=== PATIENT | male | born 1950 | race Caucasian/White ===

== ENCOUNTER → 2016-10-06 | Day surgery (SDC) | payer OTHER ==
[2016-10-03 15:44] VITALS: BMI 28.7
[~2016-10-06] MED LIST: LACTATED RINGERS 1,000 ML IV SCH; LIDOCAINE 1% 20 ML VIAL (10MG/ML) FOR IV START INTRADERMA PRN; LIDOCAINE 1% INJ 10MG/ML (20 ML MDV) ONE; PROPOFOL 10 MG/ML 20 ML VIAL IV ONE; ePHEDrine 50 MG/ML 1 ML AMP ONE
[2016-10-06 08:09] VITALS: RESP 18; TEMP 97.3
[2016-10-06 08:15] LABS: Glucose,Whole Blood 176 mg/dL (75-99)
--- NOTE | 2016-10-06 09:21 | P.PCN ---
Date of Procedure: 10/06/16 Procedure(s) Performed: Procedure: Colonoscopy and polypectomy. Preoperative diagnosis: Change in bowel habits. Postoperative diagnosis: Multiple small polyps snared but no large polyps or cancer treated Preparation: HalfLytely prep. Sedation: Was provided by anesthesia. Brief clinical history: The patient is a 65-year-old male who is referred for this evaluation for change in bowel habits that started around May of last year. He reports intermittent episodes of loose stools but no diarrhea or bleeding. No family history of colon cancer. This would be his first colonoscopy. Procedure: With the patient on his left lateral decubitus position and after informed consent and adequate sedation, the perianal area was inspected and it did not show any fissures or fistulas. There were no masses felt on digital rectal examination. The Olympus CFQ 160L video colonoscope was then inserted in the rectum in the usual fashion and advanced to the cecum. The mucosa appeared healthy. There were multiple small and diminutive polyps. I snared 2 in the transverse colon and one in the sigmoid but there were no large polyps or cancer. I retroflexed endoscope in the rectum before the endoscope was withdrawn. The patient tolerated the procedure well. Plan: The patient was reassured. Will await pathology results. I anticipate repeating this exam in 3-5 years.
[2016-10-06 09:41] VITALS: BP 117/59; PULSE 53
[2016-10-06 10:58] LABS: Glucose,Whole Blood 67 mg/dL (75-99)
[2016-10-06 10:58] LABS: Glucose,Whole Blood 115 mg/dL (75-99)
[2016-10-06 10:58] LABS: Glucose,Whole Blood 69 mg/dL (75-99)
[2016-10-06 10:58] LABS: Glucose,Whole Blood 64 mg/dL (75-99)
== END ==
LOC: ORWHC2ENDO 07:41
DX: D12.5 Benign neoplasm of sigmoid colon (principal); D12.3 Benign neoplasm of transverse colon; I25.10 Atherosclerotic heart disease of native coronary artery without angina pectoris; E78.5 Hyperlipidemia, unspecified; J44.9 Chronic obstructive pulmonary disease, unspecified; E11.9 Type 2 diabetes mellitus without complications; Z79.84 Long term (current) use of oral hypoglycemic drugs; Z86.73 Personal history of transient ischemic attack (TIA), and cerebral infarction without residual deficits; Z79.82 Long term (current) use of aspirin; Z79.891 Long term (current) use of opiate analgesic; Z79.899 Other long term (current) drug therapy; Z88.5 Allergy status to narcotic agent
CPT/HCPCS: 88305; 45385; J2001; J2704; 99153

== ENCOUNTER 2017-02-04 11:46 | Emergency (ER) | payer OTHER ==
[2017-02-04 11:52] VITALS: RESP 18
[2017-02-04] MEDS ORDERED: SODIUM CHLORIDE 0.9% 1,000 ML IV STA (12:17)
[2017-02-04] MEDS ORDERED: SODIUM CHLORIDE 0.9% 500 ML IV STA (12:18)
[2017-02-04 12:22] LABS: Glucose,Whole Blood 104 mg/dL (75-99)
--- NOTE | 2017-02-04 12:22 | ED ---
Neuro HPI - General Chief Complaint: Neuro Symptoms/Deficit Stated Complaint: POSS CVA Time Seen by Provider: 02/04/17 12:00 Source: patient, family, RN notes reviewed Mode of arrival: wheelchair Limitations: no limitations - History of Present Illness Is the patient presenting with stroke symptoms?: No Initial Comments: This is a 66-year-old male with a history of low back problems who states he had the onset is facial numbness this morning he also states last several days he's had pain in his legs when he tries to walk and stand. He denies any facial weakness any headache blurry vision weakness to his upper extremities. No focal weakness was lower extremities. No fevers chills sweats no trauma. - Related Data Home Medications: Home Medications Medication Instructions Recorded Confirmed Losartan [Cozaar] 50 mg PO DAILY 05/25/14 02/04/17 Metoprolol Tartrate [Lopressor] 100 mg PO DAILY 05/25/14 02/04/17 glipiZIDE [Glucotrol] 5 mg PO TID 05/25/14 02/04/17 metFORMIN HCL [Glucophage] 500 mg PO BID 05/25/14 02/04/17 sitaGLIPtin [Januvia] 50 mg PO DAILY 05/25/14 02/04/17 Atorvastatin [Lipitor] 80 mg PO DAILY 12/29/14 02/04/17 Escitalopram [Lexapro] 10 mg PO DAILY 12/29/14 02/04/17 Cyclobenzaprine [Flexeril] 10 mg PO TID PRN 02/10/15 02/04/17 Loratadine [Claritin] 10 mg PO DAILY 02/10/15 02/04/17 rOPINIRole HCL [Requip] 0.5 mg PO HS 02/10/15 02/04/17 Nitroglycerin Sl Tabs [Nitrostat] 0.4 mg SUBLINGUAL Q5M PRN 04/04/16 02/04/17 ALPRAZolam [Xanax] 0.5 mg PO DAILY PRN 02/04/17 02/04/17 Allopurinol [Zyloprim] 100 mg PO DAILY 02/04/17 02/04/17 Furosemide [Lasix] 40 mg PO DAILY 02/04/17 02/04/17 oxyCODONE-APAP 10-325MG [Percocet 1 tab PO Q6HR PRN 02/04/17 02/04/17 10-325 mg] Previous Rx's Medication Instructions Recorded Aspirin EC [Ecotrin] 325 mg PO DAILY tablet. 01/02/15 Allergies/Adverse Reactions: Allergies Allergy/AdvReac Type Severity Reaction Status Date / Time codeine Allergy Unknown Verified 02/04/17 12:42 Childhood morphine Allergy Unknown Verified 02/04/17 12:42 Childhood Review of Systems ROS Statement: Those systems with pertinent positive or pertinent negative responses have been documented in the HPI. ROS Other: All systems not noted in ROS Statement are negative. General Exam - General Exam Comments Initial Comments: This is a well-developed well-nourished awake alert anxious appearing male he does demonstrate some trembling. Limitations: no limitations General appearance: alert, anxious Head exam: Present: atraumatic, normocephalic, normal inspection Eye exam: Present: normal appearance, PERRL, EOMI. Absent: scleral icterus, conjunctival injection, periorbital swelling ENT exam: Present: mucous membranes dry Neck exam: Present: normal inspection. Absent: tenderness, meningismus, lymphadenopathy Respiratory exam: Present: normal lung sounds bilaterally, other (He is noted be hyperventilating). Absent: respiratory distress, wheezes, rales, rhonchi, stridor Cardiovascular Exam: Present: regular rate, normal rhythm, normal heart sounds. Absent: systolic murmur, diastolic murmur, rubs, gallop, clicks GI/Abdominal exam: Present: soft, normal bowel sounds. Absent: distended, tenderness, guarding, rebound, rigid Extremities exam: Present: normal inspection, full ROM, normal capillary refill , other (No overt Tenderness no palpable cords). Absent: tenderness, pedal edema, joint swelling, calf tenderness Back exam: Present: normal inspection Neurological exam: Present: alert, oriented X3, CN II-XII intact Psychiatric exam: Present: normal affect, normal mood Skin exam: Present: warm, dry, intact, normal color. Absent: rash Stroke MDM - Lab Data Result diagrams: 02/04/17 12:10 02/04/17 12:10 Lab Results 02/04/17 02/04/17 02/04/17 Range/Units 12:02 12:10 12:10 WBC 8.0 (3.8-10.6) k/uL RBC 4.63 (4.30-5.90) m/uL Hgb 13.5 (13.0-17.5) gm/dL Hct 41.1 (39.0-53.0) % MCV 88.8 (80.0-100.0) fL MCH 29.1 (25.0-35.0) pg MCHC 32.8 (31.0-37.0) g/dL RDW 15.0 (11.5-15.5) % Plt Count 124 L (150-450) k/uL Neutrophils % 67 % Lymphocytes % 19 % Monocytes % 8 % Eosinophils % 3 % Basophils % 1 % Neutrophils # 5.3 (1.3-7.7) k/uL Lymphocytes # 1.5 (1.0-4.8) k/uL Monocytes # 0.7 (0-1.0) k/uL Eosinophils # 0.3 (0-0.7) k/uL Basophils # 0.1 (0-0.2) k/uL PT (9.0-12.0) sec INR (<1.1) APTT (22.0-30.0) sec D-Dimer (<0.60) mg/L FEU Sodium (137-145) mmol/L Potassium (3.5-5.1) mmol/L Chloride (98-107) mmol/L Carbon Dioxide (22-30) mmol/L Anion Gap mmol/L BUN (9-20) mg/dL Creatinine (0.66-1.25) mg/dL Est GFR (MDRD) Af Amer (>60 ml/min/1.73 sqM) Est GFR (MDRD) Non-Af (>60 ml/min/1.73 sqM) Glucose (74-99) mg/dL POC Glucose (mg/dL) 104 H (75-99) mg/dL POC Glu Medical Reception Specialist ID JeffIsabel Calcium (8.4-10.2) mg/dL Magnesium (1.6-2.3) mg/dL Total Bilirubin (0.2-1.3) mg/dL AST (17-59) U/L ALT (21-72) U/L Alkaline Phosphatase (38-126) U/L Total Creatine Kinase 33 L (55-170) U/L CK-MB (CK-2) 1.5 (0.0-2.4) ng/mL CK-MB (CK-2) Rel Index 4.5 Troponin I 0.012 (0.000-0.034) ng/mL Total Protein (6.3-8.2) g/dL Albumin (3.5-5.0) g/dL TSH (0.465-4.680) mIU/L 02/04/17 02/04/17 Range/Units 12:10 12:10 WBC (3.8-10.6) k/uL RBC (4.30-5.90) m/uL Hgb (13.0-17.5) gm/dL Hct (39.0-53.0) % MCV (80.0-100.0) fL MCH (25.0-35.0) pg MCHC (31.0-37.0) g/dL RDW (11.5-15.5) % Plt Count (150-450) k/uL Neutrophils % % Lymphocytes % % Monocytes % % Eosinophils % % Basophils % % Neutrophils # (1.3-7.7) k/uL Lymphocytes # (1.0-4.8) k/uL Monocytes # (0-1.0) k/uL Eosinophils # (0-0.7) k/uL Basophils # (0-0.2) k/uL PT 10.7 (9.0-12.0) sec INR 1.1 (<1.1) APTT 22.6 (22.0-30.0) sec D-Dimer 0.76 H (<0.60) mg/L FEU Sodium 136 L (137-145) mmol/L Potassium 4.4 (3.5-5.1) mmol/L Chloride 101 (98-107) mmol/L Carbon Dioxide 24 (22-30) mmol/L Anion Gap 11 mmol/L BUN 30 H (9-20) mg/dL Creatinine 1.10 (0.66-1.25) mg/dL Est GFR (MDRD) Af Amer >60 (>60 ml/min/1.73 sqM) Est GFR (MDRD) Non-Af >60 (>60 ml/min/1.73 sqM) Glucose 101 H (74-99) mg/dL POC Glucose (mg/dL) (75-99) mg/dL POC Glu Medical Reception Specialist ID Calcium 9.2 (8.4-10.2) mg/dL Magnesium 2.1 (1.6-2.3) mg/dL Total Bilirubin 0.7 (0.2-1.3) mg/dL AST 32 (17-59) U/L ALT 44 (21-72) U/L Alkaline Phosphatase 83 (38-126) U/L Total Creatine Kinase (55-170) U/L CK-MB (CK-2) (0.0-2.4) ng/mL CK-MB (CK-2) Rel Index Troponin I (0.000-0.034) ng/mL Total Protein 7.1 (6.3-8.2) g/dL Albumin 4.4 (3.5-5.0) g/dL TSH 3.080 (0.465-4.680) mIU/L - NIH Stroke Scale 1a. Level of Consciousness: (0) alert 1b. LOC Questions: (0) answers correctly 1c. LOC Commands: (0) performs tasks correctly 2. Best Gaze: (0) normal 3. Visual: (0) no visual loss 4. Facial Palsy: (0) normal symmetrical movement 5a. Motor Arm Left: (0) no drift 5b. Motor Arm Right: (0) no drift 6a. Motor Leg Left: (0) no drift 6b. Motor Leg Right: (0) no drift 7. Limb Ataxia: (0) absent 8. Sensory: (0) normal 9. Best Language: (0) no aphasia 10. Dysarthria: (0) normal 11. Extinction/Inattention: (0) no abnormality - Medical Decision Making Patient did feel improved. He received IV hydration. The initial presentation is consistent with hyperventilation dehydration and chronic low back pain. He is to be discharged to follow-up with his doctor return when necessary we did discuss the patient's ultrasound results and the mildly elevated d-dimer. Further workup at this time is not indicated. - EKG Data -: EKG Interpreted by Me EKG shows normal: sinus rhythm (Sinus rhythm a rate of 64 QRS 114 QT/QTC of 14/ [address]-T wave configuration artifact is present st-t wave changes) Past Medical History Past Medical History: CVA/TIA, Diabetes Mellitus, GERD/Reflux, Hyperlipidemia, Myocardial Infarction ([place]) Additional Past Medical History / Comment(s): CV A 1997 with no residual deficits 2 episode, carotid stenosis followed by Dr. Wyatt every 6 months, CABG 1995 tenosynovitis bilateral wrists and both hand's fingers and in his back, alot of back pain, TIA Last Myocardial Infarction Date:: 2001 History of Any Multi-Drug Resistant Organisms: None Reported Past Surgical History: Coronary Bypass/CABG, Heart Catheterization With Stent, Hernia Repair Additional Past Surgical History / Comment(s): March 1998 Cabg triple vessel by Dr. Ge. [facility] with 3 stents. 4th stent 2016 at [place] Past Anesthesia/Blood Transfusion Reactions: No Reported Reaction Date of Last Stent Placement:: March 1998 Past Psychological History: No Psychological Hx Reported Additional Psychological History / Comment(s): Pt lives with his in their home. He is normally independent. He drives a car. He uses a cane on occasion. They have no home care agencies. Smoking Status: Former smoker Past Alcohol Use History: None Reported Past Drug Use History: None Reported - Past Family History Father Family Medical History: Cancer Additional Family Medical History / Comment(s): Leukemia Father of leukemia at age 32yrs Mother Family Medical History: COPD Additional Family Medical History / Comment(s): Mother was 76 when she . She had mental illness. Sister(s) Family Medical History: Coronary Artery Disease (CAD), CVA/TIA Brother(s) Family Medical History: Coronary Artery Disease (CAD) Course Vital Signs 02/04/17 02/04/17 02/04/17 11:48 11:59 12:14 Temperature 98.3 F Pulse Rate 67 Pulse Rate [ 66 66 Damage Appraiser ] Respiratory 18 18 18 Rate Blood Pressure 178/81 Blood Pressure 190/91 186/79 [Right Arm] O2 Sat by Pulse 100 Oximetry 02/04/17 02/04/17 02/04/17 12:36 14:11 15:08 Temperature 98.1 F Pulse Rate 63 68 64 Pulse Rate [ Damage Appraiser ] Respiratory 18 18 18 Rate Blood Pressure 181/72 128/62 122/57 Blood Pressure [Right Arm] O2 Sat by Pulse 100 96 96 Oximetry Disposition Clinical Impression: Hyperventilation syndrome, Dehydration, Chronic back pain Disposition: HOME SELF-CARE Condition: Good Instructions: Hyperventilation (ED), Dehydration (ED), Chronic Back Pain (ED)
[2017-02-04 12:28] LABS: Basophils # (A) 0.1 k/uL (0-0.2); Basophils % (A) 1 %; CH 29.4; CHCM 33.3; Eosinophils # (A) 0.3 k/uL (0-0.7); Eosinophils % (A) 3 %; HCT 41.1 % (39.0-53.0); HDW 2.83; HGB 13.5 gm/dL (13.0-17.5); Luc # (Auto) 0.13; Luc % (Auto) 2; Lymphocytes # (A) 1.5 k/uL (1.0-4.8); Lymphocytes % (A) 19 %; MCH 29.1 pg (25.0-35.0); MCHC 32.8 g/dL (31.0-37.0); MCV 88.8 fL (80.0-100.0); Monocytes # (A) 0.7 k/uL (0-1.0); Monocytes % (A) 8 %; Neutrophils # (A) 5.3 k/uL (1.3-7.7); Neutrophils % (A) 67 %; RBC 4.63 m/uL (4.30-5.90)
[2017-02-04 12:40] LABS: ALT 44 U/L (21-72); AST 32 U/L (17-59); Alkaline Phosphatase 83 U/L (38-126); Anion Gap 11 mmol/L; Blood Urea Nitrogen 30 mg/dL (9-20); Calcium 9.2 mg/dL (8.4-10.2); Carbon Dioxide 24 mmol/L (22-30); Chloride 101 mmol/L (98-107); Glucose 101 mg/dL (74-99); Magnesium 2.1 mg/dL (1.6-2.3); Non-African American GFR(MDRD) >60 (>60 ml/min/1.73 sqM); Potassium 4.4 mmol/L (3.5-5.1); Sodium 136 mmol/L (137-145); Total Bilirubin 0.7 mg/dL (0.2-1.3); Total Protein 7.1 g/dL (6.3-8.2)
[2017-02-04 12:57] LABS: INR 1.1 (<1.1); Partial Thromboplastin Time 22.6 sec (22.0-30.0); Prothrombin Time 10.7 sec (9.0-12.0)
[2017-02-04 13:03] LABS: Creatine Kinase MB 1.5 ng/mL (0.0-2.4); Troponin I 0.012 ng/mL (0.000-0.034)
--- NOTE | 2017-02-04 13:11 | CT ---
EXAMINATION TYPE: CT brain wo con DATE OF EXAM: 02/04/2017 12:54 PM COMPARISON: 04/04/2016 HISTORY: possible cva, Weak in legs CT DLP: 1050.8 mGycm Automated exposure control for dose reduction was used. FINDINGS: There is mild cerebral cortical atrophy. There is a 5 mm hypodensity in the right caudate nucleus. Th ere is no mass effect nor midline shift. There is no sign of intracranial hemorrhage. The calvarium i s intact. IMPRESSION: Old lacunar infarct right caudate nucleus. Cerebral atrophy. No change compared to old exam. No acute abnormality.
--- NOTE | 2017-02-04 13:24 | XR ---
EXAMINATION TYPE: XR chest 2V DATE OF EXAM: 02/04/2017 1:16 PM COMPARISON: 02/10/2015 HISTORY: Altered mental status. Chest pain. TECHNIQUE: Frontal and lateral views of the chest are obtained. FINDINGS: There is no heart failure nor confluent pneumonic infiltrate. There are no hilar masses. C ostophrenic angles are clear. There are chest leads. There are sternal wires. IMPRESSION: No active cardiac pulmonary disease. Borderline cardiomegaly. No change compared to last exam.
--- NOTE | 2017-02-04 13:26 | XR ---
EXAMINATION TYPE: XR lumbosacral spine min 4V DATE OF EXAM: 02/04/2017 1:16 PM COMPARISON: 02/10/2015 HISTORY: Back pain TECHNIQUE: 5 views FINDINGS: Fairly normal spacing and alignment. There is mild spurring of the endplates. Abdominal aorta is athe romatous. There is almost 50% anterior wedging of L1 vertebra. Sacroiliac joints are intact. IMPRESSION: Old L1 compression fracture shows progression compared to old exam. I see no definite acu te fracture. Mild spondylotic changes.
[2017-02-04 14:13] VITALS: TEMP 98.1
--- NOTE | 2017-02-04 15:07 | US ---
EXAMINATION TYPE: US venous doppler duplex LE DATE OF EXAM: 02/04/2017 12:25 PM COMPARISON: NONE CLINICAL HISTORY: Pain. Bilateral leg pain SIDE PERFORMED: Bilateral TECHNIQUE: The lower extremity deep venous system is examined utilizing real time linear array sonog shefali with graded compression, doppler sonography and color-flow sonography. VESSELS IMAGED: External Iliac Vein (EIV) Common Femoral Vein Deep Femoral Vein Greater Saphenous Vein * Femoral Vein Popliteal Vein Small Saphenous Vein * Proximal Calf Veins (* superficial vessels) Right Leg: Negative for DVT Left Leg: Negative for DVT IMPRESSION: Grayscale, color doppler, spectral doppler imaging performed of the deep veins of the lo wer extremities. There is normal flow, compressibility, vascular waveforms bilaterally. Normal exam . No evidence of deep venous thrombosis in both legs.
[2017-02-04 16:35] VITALS: BP 116/56; PULSE 66
== END 2017-02-04 16:46 | disposition home or self-care (01) ==
LOC: EC 11:46
DX: F45.8 Other somatoform disorders (principal); E86.0 Dehydration; M54.5 Low back pain; G89.29 Other chronic pain; E11.9 Type 2 diabetes mellitus without complications; E78.5 Hyperlipidemia, unspecified; Z87.891 Personal history of nicotine dependence; Z88.5 Allergy status to narcotic agent; Z79.84 Long term (current) use of oral hypoglycemic drugs; Z79.899 Other long term (current) drug therapy
CPT/HCPCS: 36415; 70450; 71020; 72110; 80053; 82550; 82553; 83735; 84443; 84484; 85025; 85379; 85610; 85730; 93005; 93970; 96360; 96361; 99284

== ENCOUNTER → 2017-02-14 | Outpatient (CLI) | payer OTHER ==
--- NOTE | 2017-02-16 14:19 | BD ---
EXAMINATION TYPE: MG DEXA axial skeleton. DATE OF EXAM: 02/14/2017 4:10 PM COMPARISON: NONE CLINICAL HISTORY: Height: 73 IN Weight: 247 LBS FRAX RISK QUESTIONS: Alcohol (3 or more units per day): NO Family History (Parent hip fracture): NO Glucocorticoids (More than 3mos): NO (Ex: prednisone, prednisolone, methylprednisolone, dexamethasone, and hydrocortisone). History of Fracture in Adulthood: NO Secondary Osteoporosis: 1. Type 1 Diabetes: NO 2. Hyperthyroidism: NO 3. Menopause before 45: N/A 4. Malnutrition: NO 5. Chronic liver disease: NO Rheumatoid Arthritis: YES Current Tobacco Use: NO RISK FACTORS HISTORY OF: Active: NO Diet low in dairy products/other sources of calcium: YES Lost more than 2 inches in height since high school: YES MEDICATIONS: Additional Medications: CALCIUM, VIT D, DIABETES MEDS, HEART MEDS,CHOLESTEROL MEDS EXAM MEASUREMENTS: Bone mineral densitometry was performed using the [employer] System. Bone mineral density as measured about the Lumbar spine is: ----- L1-L4(G/cm2): 1.497 T Score Values are as follows: ----- L2: 1.4 ----- L3: 3.1 ----- L4: 1.8 ----- L1-L4: 2.6 Bone mineral density BASELINE Bone mineral density about the R hip (g/cm2): 1.160 Bone mineral density about the L hip (g/cm2): 1.222 T Score values are as follows: -----R Neck: 1.9 -----L Neck: 1.3 -----R Total: 2.7 -----L Total: 3.0 Bone mineral density BASELINE IMPRESSION: Normal (Values between +1 and -1 indicate normal bone mass). Consider repeating this study in 5 year s or sooner if there is some new clinical indication. NOTE: T-SCORE=SD OF THE YOUNG ADULT MEAN.
== END | disposition home or self-care (01) ==
LOC: RADBDWWP 16:09
PROVIDERS: ATTEND Family Medicine
DX: M47.817 Spondylosis without myelopathy or radiculopathy, lumbosacral region (principal)
CPT/HCPCS: 77080

== ENCOUNTER → 2017-12-08 | Outpatient (CLI) | payer MEDICARE, OTHER | END | disposition home or self-care (01) | LOC: LABWHC1 10:09 | PROVIDERS: ATTEND Family Medicine | DX: M79.661 Pain in right lower leg (principal) | CPT/HCPCS: 36415; 85379 ==

== ENCOUNTER → 2017-12-13 | Outpatient (CLI) | payer MEDICARE, OTHER ==
--- NOTE | 2017-12-13 09:16 | US ---
EXAMINATION TYPE: US venous doppler duplex LE DATE OF EXAM: 12/13/2017 7:35 AM COMPARISON: NONE CLINICAL HISTORY: Elevated D Dimer R79.1. bilateral calf pain SIDE PERFORMED: Bilateral TECHNIQUE: The lower extremity deep venous system is examined utilizing real time linear array sonog shefali with graded compression, doppler sonography and color-flow sonography. VESSELS IMAGED: External Iliac Vein (EIV) Common Femoral Vein Deep Femoral Vein Greater Saphenous Vein * Femoral Vein Popliteal Vein Small Saphenous Vein * Proximal Calf Veins (* superficial vessels) Grayscale, color doppler, spectral doppler imaging performed of the deep veins of the lower extremiti es. There is normal flow, compressibility, vascular waveforms. Right Leg: Negative for DVT Left Leg: Negative for DVT IMPRESSION: No sonographic evidence of deep venous arthrosis within either lower extremity.
== END | disposition home or self-care (01) ==
LOC: RADUSWWP 06:47
PROVIDERS: ATTEND Family Medicine
DX: M79.661 Pain in right lower leg (principal); M79.662 Pain in left lower leg; R79.1 Abnormal coagulation profile
CPT/HCPCS: 93970

== ENCOUNTER 2018-07-11 07:46 | Day surgery (SDC) | payer MEDICARE, OTHER ==
[2018-07-04 15:17] VITALS: BMI 29.0
[~2018-07-11 07:46] MED LIST changes: -LIDOCAINE 1% INJ 10MG/ML (20 ML MDV) ONE; -PROPOFOL 10 MG/ML 20 ML VIAL IV ONE; -ePHEDrine 50 MG/ML 1 ML AMP ONE
[2018-07-11 08:15] VITALS: TEMP 98.2
[2018-07-11 08:23] LABS: Glucose,Whole Blood 128 mg/dL (75-99)
[2018-07-11] MEDS ORDERED: LIDOCAINE 1% INJ 10MG/ML (20 ML MDV) ONE (08:28)
[2018-07-11] MEDS ORDERED: PROPOFOL 10 MG/ML 20 ML VIAL IV ONE (08:28)
--- NOTE | 2018-07-11 08:34 | P.GSHP ---
History of Present Illness H&P Date: 07/11/18 Chief Complaint: GI bleed This is a 67-year-old male referred from Dr. Randy Saleh. Patient presents today for colonoscopy. He's had issues with rectal bleeding. Past Medical History Past Medical History: COPD, CVA/TIA, Diabetes Mellitus, GERD/Reflux, Hyperlipidemia, Hypertension, Myocardial Infarction ([place]) Additional Past Medical History / Comment(s): COPD, CVA 1997, carotid artery disease, diabetes mellitus, chronic back pain, tenosynovitis involving the wrists and hands bilaterally, chronic back pain, acid reflux, hyperlipidemia, obesity, chronic renal failure, mild aortic stenosis with a peak gradient across the aortic valve of 70 mmHg Last Myocardial Infarction Date:: 2001 History of Any Multi-Drug Resistant Organisms: None Reported Past Surgical History: Coronary Bypass/CABG, Heart Catheterization With Stent, Hernia Repair Additional Past Surgical History / Comment(s): March 1998 Cabg TRIPLE vessel by Dr. Ge. [facility] with 3 stents. 4th stent 2015 at [place], COLONOSCOPY Past Anesthesia/Blood Transfusion Reactions: No Reported Reaction Date of Last Stent Placement:: March 1998, 2015 Smoking Status: Former smoker - Past Family History Father Family Medical History: Cancer Additional Family Medical History / Comment(s): Leukemia Father of leukemia at age 32yrs Mother Family Medical History: COPD Additional Family Medical History / Comment(s): Mother was 76 when she . She had mental illness. Sister(s) Family Medical History: Coronary Artery Disease (CAD), CVA/TIA Brother(s) Family Medical History: Coronary Artery Disease (CAD) Medications and Allergies Home Medications Medication Instructions Recorded Confirmed Type Losartan [Cozaar] 50 mg PO DAILY 05/25/14 07/11/18 History Metoprolol Tartrate [Lopressor] 100 mg PO DAILY 05/25/14 07/11/18 History glipiZIDE [Glucotrol] 5 mg PO TID 05/25/14 07/11/18 History metFORMIN HCL [Glucophage] 500 mg PO BID 05/25/14 07/11/18 History sitaGLIPtin [Januvia] 50 mg PO DAILY 05/25/14 07/11/18 History Atorvastatin [Lipitor] 80 mg PO DAILY 12/29/14 07/11/18 History Escitalopram [Lexapro] 10 mg PO DAILY 12/29/14 07/11/18 History Cyclobenzaprine [Flexeril] 10 mg PO TID PRN 02/10/15 07/04/18 History Loratadine [Claritin] 10 mg PO DAILY 02/10/15 07/11/18 History rOPINIRole HCL [Requip] 0.5 mg PO HS 02/10/15 07/11/18 History Nitroglycerin Sl Tabs [Nitrostat] 0.4 mg SUBLINGUAL Q5M PRN 04/04/16 07/04/18 History ALPRAZolam [Xanax] 0.5 mg PO DAILY PRN 02/04/17 07/11/18 History Allopurinol [Zyloprim] 100 mg PO DAILY 02/04/17 07/11/18 History oxyCODONE-APAP 10-325MG [Percocet 1 tab PO Q6HR PRN 02/04/17 07/11/18 History 10-325 mg] Aspirin [Adult Low Dose Aspirin EC] 81 mg PO DAILY 07/04/18 07/11/18 History Allergies Allergy/AdvReac Type Severity Reaction Status Date / Time codeine Allergy Unknown Verified 07/11/18 08:19 Childhood morphine Allergy Unknown Verified 07/11/18 08:19 Childhood Surgical - Exam Vital Signs Temp Pulse Resp BP Pulse Ox 98.2 F 74 17 161/72 98 07/11/18 08:13 07/11/18 08:13 07/11/18 08:13 07/11/18 08:13 07/11/18 08:13 - General well developed, no distress - Eyes PERRL - ENT normal pinna - Neck no masses - Respiratory normal expansion - Cardiovascular Rhythm: regular - Abdomen Abdomen: soft, non tender Results - Labs Abnormal Lab Results - Last 24 Hours (Table) 07/11/18 Range/Units 08:19 POC Glucose (mg/dL) 128 H (75-99) mg/dL Assessment and Plan Assessment: Rectal bleeding. We'll perform colonoscopy.
--- NOTE | 2018-07-11 08:58 | P.OP ---
Date of Procedure: 07/11/18 Preoperative Diagnosis: GI bleed Postoperative Diagnosis: External hemorrhoids Diverticulosis Right colon polyp Procedure(s) Performed: Colonoscopy Anesthesia: MAC Surgeon: Gera Sam Pathology: other (Right colon polyp) Condition: stable Disposition: PACU Description of Procedure: The patient's placed on the endoscopy table in the lateral position. He received IV sedation. Digital rectal exam was performed which revealed external hemorrhoids. The flexible colonoscope was then placed patient anus passed throughout the entire colon. The ileocecal valve was visualized. The cecum appeared normal. In the right colon there was a peduncular polyp and this was removed with the snare. The remainder of the right colon appeared normal. The transverse colon normal. In the descending; was mild diverticular changes. Scope was then brought back the rectum and this appeared normal. The scope was withdrawn through anus and internal hemorrhoids are noted. There is no active bleeding. However it was thought that his bleeding was due to his hemorrhoids.
[2018-07-11 09:17] VITALS: BP 144/75; PULSE 58; RESP 18
== END 2018-07-11 09:28 | disposition home or self-care (01) ==
LOC: ORWHC2ENDO 07:46
PROVIDERS: ATTEND Surgery
DX: D12.2 Benign neoplasm of ascending colon (principal); K64.4 Residual hemorrhoidal skin tags; K64.8 Other hemorrhoids; K57.30 Diverticulosis of large intestine without perforation or abscess without bleeding; J44.9 Chronic obstructive pulmonary disease, unspecified; Z86.73 Personal history of transient ischemic attack (TIA), and cerebral infarction without residual deficits; I25.10 Atherosclerotic heart disease of native coronary artery without angina pectoris; E11.22 Type 2 diabetes mellitus with diabetic chronic kidney disease; E11.51 Type 2 diabetes mellitus with diabetic peripheral angiopathy without gangrene; I12.9 Hypertensive chronic kidney disease with stage 1 through stage 4 chronic kidney disease, or unspecified chronic kidney disease; F39 Unspecified mood [affective] disorder; N18.9 Chronic kidney disease, unspecified; Z87.891 Personal history of nicotine dependence; Z79.84 Long term (current) use of oral hypoglycemic drugs; I25.2 Old myocardial infarction; G89.29 Other chronic pain; M54.9 Dorsalgia, unspecified; E78.5 Hyperlipidemia, unspecified; Z95.1 Presence of aortocoronary bypass graft; Z95.5 Presence of coronary angioplasty implant and graft; K21.9 Gastro-esophageal reflux disease without esophagitis; E66.9 Obesity, unspecified; Z68.29 Body mass index [BMI] 29.0-29.9, adult; I35.0 Nonrheumatic aortic (valve) stenosis; M65.89 Other synovitis and tenosynovitis, multiple sites; Z79.82 Long term (current) use of aspirin; Z79.899 Other long term (current) drug therapy; Z88.5 Allergy status to narcotic agent
CPT/HCPCS: 88305; 45385; J2001; J2704

== ENCOUNTER → 2019-10-28 | Outpatient (CLI) | payer MEDICARE | END | disposition home or self-care (01) | LOC: RADCTMAIN 14:39 | PROVIDERS: ATTEND Family Medicine | DX: R19.4 Change in bowel habit (principal) | CPT/HCPCS: 82565; 84520 ==

== ENCOUNTER → 2019-11-05 | Outpatient (CLI) | payer MEDICARE ==
--- NOTE | 2019-11-06 10:21 | CT ---
EXAMINATION TYPE: CT abdomen pelvis w con DATE OF EXAM: 11/05/2019 COMPARISON: 09/07/2016 HISTORY: abdominal pain CT DLP: 2057.4 mGycm Automated exposure control for dose reduction was used. TECHNIQUE: Helical acquisition of images was performed from the lung bases through the pelvis. CONTRAST: Performed with Oral Contrast and with IV Contrast, patient injected with 80cc mL of Isovue 300. FINDINGS: LUNG BASES: Minimal subsegmental atelectasis LIVER/GB: No significant abnormality is appreciated. No cholelithiasis on CT. PANCREAS: No significant abnormality is seen. SPLEEN: There is prominence of the spleen measuring 13.4 cm in craniocaudal dimension, approaching cr iteria for spinal megaly. ADRENALS: No significant abnormality is seen. KIDNEYS: Too small to accurately characterize anterior cortical hypoattenuated right midpole renal le héctor measures 7 mm on series 3 image 29. No hydronephrosis of either kidney. FREE AIR: No free air is visualized. ADENOPATHY: No greater than 1 cm short axis lymph node in the abdomen or pelvis. OSSEOUS STRUCTURES: There is a compression deformity of the L1 vertebral body as seen on the prior o f 09/07/2016. Moderate degenerative change of the spine. BOWEL: Mild degree colonic fecal stasis. No dilated large or small bowel. OTHER: Prostate gland is heterogenous containing central zone calcifications. There is ectasia of the distal abdominal aorta measuring up to 2.7 cm with severe atheromatous plaqui ng however no aneurysm is seen. Bilateral inguinal rings are patulous and fat filled. No small bowel containing hernia. IMPRESSION: 1. NO ACUTE INTRA-ABDOMINAL PATHOLOGY. 2. SPLENIC SIZE APPROACHES CRITERIA FOR SPLENOMEGALY. 3. SIMILAR L1 COMPRESSION DEFORMITY IN COMPARISON TO 2016. 4. SEVERE ATHEROSCLEROSIS OF THE ABDOMINAL AORTA AND DISTAL ECTASIA WITHOUT ANEURYSM.
== END | disposition home or self-care (01) ==
LOC: RADCTMAIN 13:54
PROVIDERS: ATTEND Family Medicine
DX: R19.4 Change in bowel habit (principal); R10.9 Unspecified abdominal pain; I70.0 Atherosclerosis of aorta; R82.90 Unspecified abnormal findings in urine
CPT/HCPCS: 82565; 84520; 74177; 36415; Q9967

== ENCOUNTER 2021-08-26 07:00 | Day surgery (SDC) | payer MEDICARE ==
[2021-08-23 15:14] VITALS: BMI 28.7
[~2021-08-26 07:00] MED LIST changes: +LIDOCAINE 1% (10MG/ML) FOR IV START INTRADERMA PRN; -LIDOCAINE 1% 20 ML VIAL (10MG/ML) FOR IV START INTRADERMA PRN
[2021-08-26 07:49] VITALS: TEMP 97.1
[2021-08-26 08:08] LABS: Glucose,Whole Blood 100 mg/dL (75-99)
--- NOTE | 2021-08-26 08:21 | P.GSHP ---
History of Present Illness H&P Date: 08/26/21 Chief Complaint: Positive cologuard, history of colon polyps Is a 70-year-old male referred from Dr. Randy Saleh. Patient presents today for colonoscopy. Patient has a previous history of colon polyps. His coloGuard test is positive. Past Medical History Past Medical History: COPD, CVA/TIA, Diabetes Mellitus, GERD/Reflux, Hyperlipidemia, Hypertension, Myocardial Infarction ([place]), Renal Disease Additional Past Medical History / Comment(s): COPD, CVA 1997, carotid artery disease, diabetes mellitus, chronic back pain, tenosynovitis involving the wrists and hands bilaterally, chronic renal failure, mild aortic stenosis with a peak gradient across the aortic valve of 70 mmHg Last Myocardial Infarction Date:: 2001 History of Any Multi-Drug Resistant Organisms: None Reported Past Surgical History: Coronary Bypass/CABG, Heart Catheterization With Stent, Hernia Repair Additional Past Surgical History / Comment(s): March 1998 Cabg TRIPLE vessel by Dr. Ge. [facility] with 3 stents. 4th stent 2015 at [place], COLONOSCOPY Past Anesthesia/Blood Transfusion Reactions: No Reported Reaction Date of Last Stent Placement:: March 1998, 2015 Smoking Status: Former smoker - Past Family History Father Family Medical History: Cancer Additional Family Medical History / Comment(s): Leukemia Father of leukemia at age 32yrs Mother Family Medical History: COPD Additional Family Medical History / Comment(s): Mother was 76 when she . She had mental illness. Sister(s) Family Medical History: Coronary Artery Disease (CAD), CVA/TIA Brother(s) Family Medical History: Coronary Artery Disease (CAD) Medications and Allergies Home Medications Medication Instructions Recorded Confirmed Type Losartan [Cozaar] 50 mg PO DAILY 05/25/14 08/26/21 History Metoprolol Tartrate [Lopressor] 100 mg PO DAILY 05/25/14 08/26/21 History glipiZIDE [Glucotrol] 5 mg PO TID 05/25/14 08/26/21 History metFORMIN HCL [Glucophage] 500 mg PO BID 05/25/14 08/26/21 History sitaGLIPtin [Januvia] 50 mg PO DAILY 05/25/14 08/26/21 History Atorvastatin [Lipitor] 80 mg PO DAILY 12/29/14 08/26/21 History Cyclobenzaprine [Flexeril] 10 mg PO TID PRN 02/10/15 08/26/21 History Loratadine [Claritin] 10 mg PO DAILY 02/10/15 08/26/21 History rOPINIRole HCL [Requip] 0.5 mg PO HS 02/10/15 08/26/21 History Nitroglycerin Sl Tabs [Nitrostat] 0.4 mg SUBLINGUAL Q5M PRN 04/04/16 08/26/21 History ALPRAZolam [Xanax] 0.5 mg PO DAILY PRN 02/04/17 08/26/21 History allopurinoL [Zyloprim] 100 mg PO DAILY 02/04/17 08/26/21 History Aspirin [Adult Low Dose Aspirin EC] 81 mg PO DAILY 07/04/18 08/26/21 History Albuterol Inhaler [Ventolin Hfa 1 puff INHALATION DAILY PRN 08/23/21 08/26/21 History Inhaler] Allergies Allergy/AdvReac Type Severity Reaction Status Date / Time codeine Allergy Unknown Verified 08/23/21 15:03 Childhood morphine Allergy Unknown Verified 08/23/21 15:03 Childhood Surgical - Exam Vital Signs Temp Pulse Resp BP Pulse Ox 97.1 F L 77 28 H 175/85 92 L 08/26/21 07:47 08/26/21 07:47 08/26/21 07:47 08/26/21 07:47 08/26/21 07:47 - General well developed, well nourished, no distress - Eyes PERRL - ENT normal pinna - Neck no masses - Respiratory normal expansion - Cardiovascular Rhythm: regular - Abdomen Abdomen: soft, non tender Results - Labs Abnormal Lab Results - Last 24 Hours (Table) 08/26/21 Range/Units 08:02 POC Glucose (mg/dL) 100 H (75-99) mg/dL Assessment and Plan Assessment: 3 colon polyps. We'll perform colonoscopy.
[2021-08-26] MEDS ORDERED: PHENYLEPHRINE-0.9% NACL SYG 1,000 MCG/10 ML SYRINGE ONE (08:22)
[2021-08-26] MEDS ORDERED: PROPOFOL 10 MG/ML 20 ML VIAL IV ONE (08:22)
--- NOTE | 2021-08-26 08:42 | P.OP ---
Date of Procedure: 08/26/21 Preoperative Diagnosis: History of colon polyps Postoperative Diagnosis: Right colon polyp, left colon polyp Mild diverticulosis Procedure(s) Performed: Colonoscopy Anesthesia: MAC Surgeon: Gera Sam Pathology: other (Right colon polyp, left colon polyp) Condition: stable Disposition: PACU Description of Procedure: The patient's placed on the endoscopy table in the lateral position. He received IV sedation. Digital rectal exam performed which revealed no abnormalities. Prostate was symmetric without nodules. The flexible colonoscope was then placed patient anus passed throughout the entire colon. The ileocecal valve was visualized. The cecum appeared normal. In the right colon a small sessile polyp was removed with the cold forcep. Scope brought back the remainder the ascending colon and transverse colon appeared normal. In the left colon there was another peduncular polyp was removed with the snare. The remainder left colon appeared normal. The; was mild diverticular changes. The scope was brought back the rectum and this appeared normal. Scope withdrawn for patient.
[2021-08-26 09:36] VITALS: BP 123/84; PULSE 69; RESP 18
== END 2021-08-26 09:26 | disposition home or self-care (01) ==
LOC: ORWHC2ENDO 07:00
PROVIDERS: ATTEND Surgery
DX: Z86.010 Personal history of colon polyps (principal); K57.90 Diverticulosis of intestine, part unspecified, without perforation or abscess without bleeding; K63.5 Polyp of colon; J44.9 Chronic obstructive pulmonary disease, unspecified; Z86.73 Personal history of transient ischemic attack (TIA), and cerebral infarction without residual deficits; E11.9 Type 2 diabetes mellitus without complications; E78.5 Hyperlipidemia, unspecified; I10 Essential (primary) hypertension; I25.2 Old myocardial infarction; K21.9 Gastro-esophageal reflux disease without esophagitis; Z95.1 Presence of aortocoronary bypass graft; Z87.891 Personal history of nicotine dependence
CPT/HCPCS: 45380; 45385; 88305; J2370; J2704

== ENCOUNTER 2021-11-02 05:25 | Inpatient (IN) | payer MEDICARE ==
[2021-11-02] MEDS ORDERED: SODIUM CHLORIDE 0.9% 500 ML 500 ML IV STA ×2 (05:39→06:52)
[2021-11-02] MEDS ORDERED: METOPROLOL TARTRATE 5 MG/5 ML VIAL IVP STA (05:45)
--- NOTE | 2021-11-02 05:47 | ED ---
General Adult HPI - General Chief complaint: Arrhythmia/Palpitations Stated complaint: Tachycardia Time Seen by Provider: 11/02/21 05:29 Source: patient, EMS, Caregiver Mode of arrival: EMS Limitations: no limitations - History of Present Illness Initial comments: Dictation was produced using [employer] dictation software. please excuse any grammatical, word or spelling errors. Chief Complaint: Patient is 70-year-old male presents to the emergency department for bleeding in the mouth and tachycardia History of Present Illness: 70-year-old male he states that he believes that he is here because of bleeding in his mouth. Patient currently a resident at one of the local nursing homes. They noticed blood in his mouth and that is why he sent her to the emergency department. Patient states she was eating some martinez yesterday and perhaps that was the inciting event of bleeding in his mouth. Patient denies any oral pain. Upon EMS arrival they noticed that patient was in A. fib with RVR with a rate into the 130s. He is nonhypertensive. Patient states that he feels fine. Patient is on multiple cardiac medications. According to medication reports from senior living patient as been compliant with his medications. The ROS documented in this emergency department record has been reviewed and confirmed by me. Those systems with pertinent positive or negative responses have been documented in the HPI. All other systems are other negative and/or noncontributory. PHYSICAL EXAM: General Impression: Alert and oriented x3, not in acute distress HEENT: Normocephalic atraumatic, extra-ocular movements intact, pupils equal and reactive to light bilaterally, dry mucous membranes, there is dried blood in the roof of the mouth and on the teeth and lips. He does appear to be any active bleeding at this time Cardiovascular: Tachycardic Chest: Able to complete full sentences, no retractions, no tachypnea Abdomen: abdomen soft, non-tender, non-distended, no organomegaly Musculoskeletal: Pulses present and equal in all extremities, no peripheral edema Motor: no focal deficits noted Neurological: CN II-XII grossly intact, no focal motor or sensory deficits noted Skin: Intact with no visualized rashes Psych: Normal affect and mood ED course: 62-year-old male presents to the emergency Department with initially chief complaint of oral bleeding but EMS noted that he was in A. fib with RVR. Vital signs upon arrival shows heart rate 126, rest of vital signs within acceptable limits. Patient on the monitor was anywhere with in the 110s to low 130s. Dried blood in the mouth was cleaned. There is a small crusted area on the roof of the hard palate that is likely the source of bleeding present actively bleeding at this time seems to be clotted off well with an eschar over it. EKG interpretation: Ventricular rate 133, a flutter, A. fib with rapid ventricular rate, QRS 124, QTC. 303. No MA prolongation, no QTC prolongation, no ST or T-wave changes noted. Patient has history of A. fib takes multiple cardiac medications patient's blood pressure is 102/74. medications are reviewed. he take PO metoprolol. patient was given 2.5 mg IVP metoprolol with improvement of afib w rvr but blood pressure decreased slightly. his blood pressure slightly decreased to 93/61 . He was evaluated at bedside and denied any symptoms. daughter spoke w nurse and reports patient has intractable rvr and is on multiple cardio active medications and required cardioversion multiple times. Considering patients history and clinical presentation he will be admitted with cardiology consultation. case discussed with Dr. Blandon who is willing to accept his care. Cardiology will be consulted. patient started on his home meds. - Related Data Home Medications Medication Instructions Recorded Confirmed Atorvastatin [Lipitor] 80 mg PO HS 12/29/14 11/02/21 Cyclobenzaprine [Flexeril] 10 mg PO HS 02/10/15 11/02/21 allopurinoL [Zyloprim] 100 mg PO HS 02/04/17 11/02/21 Acetaminophen [Tylenol] 650 mg PO Q4H PRN 11/02/21 11/02/21 Amiodarone [Cordarone] 200 mg PO DAILY 11/02/21 11/02/21 Ammonium Lactate Lotion 1 applic TOPICAL BID 11/02/21 11/02/21 [Lac-Hydrin 12% Lotion] Amoxic-Pot Clav 875-125Mg 1 tab PO Q12HR 11/02/21 11/02/21 [Augmentin 875-125] Apixaban [Eliquis] 5 mg PO BID 11/02/21 11/02/21 Ascorbic Acid [Vitamin C] 500 mg PO DAILY 11/02/21 11/02/21 Cholecalciferol [Vitamin D3 (25 25 mcg PO DAILY 11/02/21 11/02/21 Mcg = 1000 Iu)] Escitalopram [Lexapro] 20 mg PO HS 11/02/21 11/02/21 Famotidine [Pepcid] 10 mg PO DAILY@0600 11/02/21 11/02/21 Furosemide [Lasix] 20 mg PO DAILY@0600 11/02/21 11/02/21 Linagliptin [Tradjenta] 5 mg PO DAILY 11/02/21 11/02/21 Metoprolol Succinate [Toprol XL] 25 mg PO DAILY 11/02/21 11/02/21 Sennosides/Docusate Sodium [Senna 1 tab PO BID 11/02/21 11/02/21 Plus 8.6-50 mg Tablet] Zguard 1 applic TOPICAL HS 11/02/21 11/02/21 Zinc 50 mg PO DAILY 11/02/21 11/02/21 Previous Rx's Medication Instructions Recorded Digoxin [Lanoxin] 250 mcg PO DAILY tab 11/04/21 Diltiazem Oral [Cardizem*] 30 mg PO Q8H tab 11/04/21 Allergies Allergy/AdvReac Type Severity Reaction Status Date / Time codeine Allergy Unknown Verified 11/02/21 07:03 Childhood morphine Allergy Unknown Verified 11/02/21 07:03 Childhood Review of Systems ROS Statement: Those systems with pertinent positive or pertinent negative responses have been documented in the HPI. ROS Other: All systems not noted in ROS Statement are negative. Past Medical History Past Medical History: COPD, CVA/TIA, Diabetes Mellitus, GERD/Reflux, Hyperlipidemia, Hypertension, Myocardial Infarction ([place]), Renal Disease Additional Past Medical History / Comment(s): COPD, CVA 1997, carotid artery disease, diabetes mellitus, chronic back pain, tenosynovitis involving the wrists and hands bilaterally, chronic renal failure, mild aortic stenosis with a peak gradient across the aortic valve of 70 mmHg Last Myocardial Infarction Date:: 2001 History of Any Multi-Drug Resistant Organisms: None Reported Past Surgical History: Coronary Bypass/CABG, Heart Catheterization With Stent, Hernia Repair Additional Past Surgical History / Comment(s): March 1998 Cabg TRIPLE vessel by Dr. Ge. [facility] with 3 stents. 4th stent 2016 at [place], COLONOSCOPY Past Anesthesia/Blood Transfusion Reactions: No Reported Reaction Date of Last Stent Placement:: March 1998, 2015 Past Psychological History: No Psychological Hx Reported Smoking Status: Former smoker Past Alcohol Use History: None Reported Past Drug Use History: None Reported - Past Family History Father Family Medical History: Cancer Additional Family Medical History / Comment(s): Leukemia Father of leukemia at age 32yrs Mother Family Medical History: COPD Additional Family Medical History / Comment(s): Mother was 76 when she . She had mental illness. Sister(s) Family Medical History: Coronary Artery Disease (CAD), CVA/TIA Brother(s) Family Medical History: Coronary Artery Disease (CAD) General Exam Limitations: no limitations Course Vital Signs 11/02/21 11/02/21 11/02/21 05:35 06:27 07:57 Temperature 97.9 F 97.6 F Pulse Rate 126 H 117 H 125 H Respiratory 16 12 Rate Blood Pressure 102/74 93/61 100/86 O2 Sat by Pulse 96 98 Oximetry 11/02/21 11/02/21 11/02/21 11:59 16:56 19:25 Temperature 97.3 F L Pulse Rate 112 H 12 L 120 H Respiratory 14 122 H 18 Rate Blood Pressure 104/55 98/67 98/67 O2 Sat by Pulse 95 91 L 94 L Oximetry Medical Decision Making - Lab Data Result diagrams: 11/02/21 05:55 11/02/21 05:55 Lab Results 11/02/21 11/02/21 11/02/21 Range/Units 05:55 05:55 05:55 WBC 4.3 (3.8-10.6) k/uL RBC 3.10 L (4.30-5.90) m/uL Hgb 9.6 L (13.0-17.5) gm/dL Hct 28.5 L (39.0-53.0) % MCV 92.2 (80.0-100.0) fL MCH 31.0 (25.0-35.0) pg MCHC 33.7 (31.0-37.0) g/dL RDW 16.6 H (11.5-15.5) % Plt Count 265 (150-450) k/uL MPV 8.1 Neutrophils % (Manual) 60 % Band Neuts % (Manual) 3 % Lymphocytes % (Manual) 21 % Monocytes % (Manual) 10 % Eosinophils % (Manual) 5 % Metamyelocytes % 1 % Myelocytes % 2 % Neutrophils # (Manual) 2.70 (1.3-7.7) k/uL Lymphocytes # (Manual) 0.90 L (1.0-4.8) k/uL Monocytes # (Manual) 0.43 (0-1.0) k/uL Eosinophils # (Manual) 0.22 (0-0.7) k/uL Metamyelocytes # (Man) 0.04 H (0) k/uL Myelocytes # (Manual) 0.09 H (0) k/uL Nucleated RBCs 0 (0-0) /100 WBC Manual Slide Review Performed Toxic Granulation Present Polychromasia Present Hypochromasia Slight Poikilocytosis Moderate Anisocytosis Slight PT 13.7 H (9.0-12.0) sec INR 1.3 H (<1.2) APTT 30.5 H (22.0-30.0) sec Sodium 132 L (137-145) mmol/L Potassium 3.8 (3.5-5.1) mmol/L Chloride 100 (98-107) mmol/L Carbon Dioxide 28 (22-30) mmol/L Anion Gap 4 mmol/L BUN 12 (9-20) mg/dL Creatinine 1.32 H (0.66-1.25) mg/dL Est GFR (CKD-EPI)AfAm 64 (>60 ml/min/1.73 sqM) Est GFR (CKD-EPI)NonAf 55 (>60 ml/min/1.73 sqM) Glucose 108 H (74-99) mg/dL Calcium 8.2 L (8.4-10.2) mg/dL Magnesium 1.5 L (1.6-2.3) mg/dL Troponin I (0.000-0.034) ng/mL 11/02/21 Range/Units 05:55 WBC (3.8-10.6) k/uL RBC (4.30-5.90) m/uL Hgb (13.0-17.5) gm/dL Hct (39.0-53.0) % MCV (80.0-100.0) fL MCH (25.0-35.0) pg MCHC (31.0-37.0) g/dL RDW (11.5-15.5) % Plt Count (150-450) k/uL MPV Neutrophils % (Manual) % Band Neuts % (Manual) % Lymphocytes % (Manual) % Monocytes % (Manual) % Eosinophils % (Manual) % Metamyelocytes % % Myelocytes % % Neutrophils # (Manual) (1.3-7.7) k/uL Lymphocytes # (Manual) (1.0-4.8) k/uL Monocytes # (Manual) (0-1.0) k/uL Eosinophils # (Manual) (0-0.7) k/uL Metamyelocytes # (Man) (0) k/uL Myelocytes # (Manual) (0) k/uL Nucleated RBCs (0-0) /100 WBC Manual Slide Review Toxic Granulation Polychromasia Hypochromasia Poikilocytosis Anisocytosis PT (9.0-12.0) sec INR (<1.2) APTT (22.0-30.0) sec Sodium (137-145) mmol/L Potassium (3.5-5.1) mmol/L Chloride (98-107) mmol/L Carbon Dioxide (22-30) mmol/L Anion Gap mmol/L BUN (9-20) mg/dL Creatinine (0.66-1.25) mg/dL Est GFR (CKD-EPI)AfAm (>60 ml/min/1.73 sqM) Est GFR (CKD-EPI)NonAf (>60 ml/min/1.73 sqM) Glucose (74-99) mg/dL Calcium (8.4-10.2) mg/dL Magnesium (1.6-2.3) mg/dL Troponin I 0.024 (0.000-0.034) ng/mL Disposition Clinical Impression: Atrial fibrillation with RVR Disposition: ADMITTED IP TO THIS HOSP Condition: Fair
[2021-11-02 06:36] LABS: Anisocytosis Slight; HCT 28.5 % (39.0-53.0); HGB 9.6 gm/dL (13.0-17.5); Hypochromasia Slight; MCHC 33.7 g/dL (31.0-37.0); MCV 92.2 fL (80.0-100.0); Mean Platelet Volume 8.1; Platelet Count 265 k/uL (150-450); Poikilocytosis Moderate; RDW 16.6 % (11.5-15.5); WBC 4.3 k/uL (3.8-10.6)
[2021-11-02 06:38] LABS: Calcium 8.2 mg/dL (8.4-10.2); Magnesium 1.5 mg/dL (1.6-2.3); Potassium 3.8 mmol/L (3.5-5.1)
[2021-11-02] MEDS ORDERED: MAGNESIUM OXIDE 400 MG TAB PO STA (06:46)
[2021-11-02] MEDS ORDERED: NALOXONE 0.4 MG/ML 1 ML VIAL IV PRN (07:09)
[2021-11-02 07:12] LABS: INR 1.3 (<1.2); Partial Thromboplastin Time 30.5 sec (22.0-30.0); Prothrombin Time 13.7 sec (9.0-12.0)
[2021-11-02] MEDS ORDERED: SODIUM CHLORIDE 0.9% 1,000 ML IV SCH (07:15)
[2021-11-02] MEDS ORDERED: ACETAMINOPHEN TAB 325 MG TAB PO PRN (07:57)
[2021-11-02] MEDS: AMIODARONE 200 MG TAB PO SCH (08:01)
[2021-11-02] MEDS: LINAGLIPTIN 5 MG TABLET PO SCH (08:01)
[2021-11-02] MEDS: METOPROLOL SUCCINATE (ER) 25 MG TAB.ER.24H PO SCH (08:01)
[2021-11-02] MEDS: APIXABAN 5 MG TAB PO SCH ×2 (08:01→21:18)
[2021-11-02] MEDS: SENNOSIDES-DOCUSATE SODIUM 1 EACH TAB PO SCH ×2 (08:08→21:18)
[2021-11-02] MEDS: AMOXIC-POT CLAV 875-125MG 1 EACH TAB PO SCH ×2 (08:12→21:18)
[2021-11-02 08:45] LABS: Band Neutrophils % 3 %; Eosinophils # (M) 0.22 k/uL (0-0.7); Metamyelocytes # (M) 0.04 k/uL (0); Metamyelocytes % 1 %; Monocytes # (M) 0.43 k/uL (0-1.0); Myelocytes # (M) 0.09 k/uL (0); Myelocytes % 2 %; Neutrophils % (M) 60 %; Nucleated Red Blood Cells 0 /100 WBC (0-0); Total Cells Counted 200
[2021-11-02 08:47] LABS: Toxic Granulation Present
[2021-11-02 08:48] LABS: Polychromasia Present
--- NOTE | 2021-11-02 10:49 | P.CRDCN ---
History of Present Illness History of present illness: HISTORY OF PRESENTING ILLNESS Patient is pleasant 70-year-old male with history of atrial fibrillation, atrial flutter, hypertension however borderline, hyperlipidemia, diabetes mellitus type 2, recent COVID-19 infection and significant debility unable to walk for the last few weeks who presents secondary to fairly asymptomatic A. flutter with RVR with heart rates 120 to 130s. Patient states he had COVID-19 pneumonia approximately a week and a half ago at [facility] and had been doing fairly well at rehab however visiting nurses check vitals with heart rates up in the 120s to 130s and therefore was sent to emergency department. He states he does not have any significant chest pain, pressure, shortness breath or lightheadedness. His blood pressures have been borderline 90s over 50s. He does follow with Dr. Mcfarland however admits it has been a few months as he has not been able to get an secondary COVID-19. He denies any recent changes to medications. He states he is unable to walk on his own more than a few steps as he is severely weak in his lower extremities. EKG shows atrial flutter with RVR with heart rate 130, right bundle branch block with LPFB, nonspecific minimal ST depressions. Blood work shows white blood cell count 4.3, hemoglobin 9.6, INR 1.3, sodium 132, BUN 12, creatinine 1.3, magnesium 1.5, troponin 0.024, stout virus not detected. REVIEW OF SYSTEMS At the time of my exam: CONSTITUTIONAL: Denies fever or chills. +generalized debility CARDIOVASCULAR: Denies chest pain, shortness of breath, orthopnea, PND or palpitations. RESPIRATORY: Denies cough. GASTROINTESTINAL: Denies abdominal pain, diarrhea, constipation, nausea or vomiting. MUSCULOSKELETAL: Denies myalgias. NEUROLOGIC: Denies numbness, tingling or weakness. ENDOCRINE: Denies fatigue, weight change, polydipsia or polyurina. GENITOURINARY: Denies burning, hematuria or urgency with micturation. HEMATOLOGIC: Denies history of anemia or bleeding. PHYSICAL EXAMINATION Vital signs reviewed. CONSTITUTIONAL: No apparent distress. HEENT: Head is normocephalic. Pupils are equal, round. Sclerae anicteric. Mucous membranes of the mouth are moist. No JVD. No carotid bruit. CHEST EXAMINATION: Lungs are clear to auscultation. No chest wall tenderness is noted on palpation or with deep breathing. HEART EXAMINATION: Regular rate and tachycardic. S1, S2 heard. No murmurs, gallops or rub. ABDOMEN: Soft, nontender. Positive bowel sounds. EXTREMITIES: 2+ peripheral pulses, no lower extremity edema and no calf tenderness. NEUROLOGIC EXAMINATION: Patient is awake, alert and oriented x3. ASSESSMENT 1. Atrial flutter with RVR 2. History of persistent atrial fibrillation with previous 2 cardioversions 3. Hypertension however borderline 4. Recent COVID-19 infection 5. Significant debility with inability to stand up on his own 6. Chronic kidney disease PLAN Patient is adamant he is not having much of any symptoms from the atrial flutter with RVR. We will continue with amiodarone and additionally add digoxin and continue with his home metoprolol dose. Continue with anticoagulation. If unable to control with rate control may consider additional cardioversion. Check 2-D echo. Further recommendations to follow. Past Medical History Past Medical History: COPD, CVA/TIA, Diabetes Mellitus, GERD/Reflux, Hyperlipid emia, Hypertension, Myocardial Infarction ([place]), Renal Disease Additional Past Medical History / Comment(s): COPD, CVA 1997, carotid artery disease, diabetes mellitus, chronic back pain, tenosynovitis involving the wrists and hands bilaterally, chronic renal failure, mild aortic stenosis with a peak gradient across the aortic valve of 70 mmHg Last Myocardial Infarction Date:: 2001 History of Any Multi-Drug Resistant Organisms: None Reported Past Surgical History: Coronary Bypass/CABG, Heart Catheterization With Stent, Hernia Repair Additional Past Surgical History / Comment(s): March 1998 Cabg TRIPLE vessel by Dr. Ge. [facility] with 3 stents. 4th stent 2016 at [place], COLONOSCOPY Past Anesthesia/Blood Transfusion Reactions: No Reported Reaction Date of Last Stent Placement:: March 1998, 2015 Past Psychological History: No Psychological Hx Reported Smoking Status: Former smoker Past Alcohol Use History: None Reported Past Drug Use History: None Reported - Past Family History Father Family Medical History: Cancer Additional Family Medical History / Comment(s): Leukemia Father of leukemia at age 32yrs Mother Family Medical History: COPD Additional Family Medical History / Comment(s): Mother was 76 when she . She had mental illness. Sister(s) Family Medical History: Coronary Artery Disease (CAD), CVA/TIA Brother(s) Family Medical History: Coronary Artery Disease (CAD) Medications and Allergies Home Medications Medication Instructions Recorded Confirmed Type Atorvastatin [Lipitor] 80 mg PO HS 12/29/14 11/02/21 History Cyclobenzaprine [Flexeril] 10 mg PO HS 02/10/15 11/02/21 History allopurinoL [Zyloprim] 100 mg PO HS 02/04/17 11/02/21 History Acetaminophen [Tylenol] 650 mg PO Q4H PRN 11/02/21 11/02/21 History Amiodarone [Cordarone] 200 mg PO DAILY 11/02/21 11/02/21 History Ammonium Lactate Lotion 1 applic TOPICAL BID 11/02/21 11/02/21 History [Lac-Hydrin 12% Lotion] Amoxic-Pot Clav 875-125Mg 1 tab PO Q12HR 11/02/21 11/02/21 History [Augmentin 875-125] Apixaban [Eliquis] 5 mg PO BID 11/02/21 11/02/21 History Ascorbic Acid [Vitamin C] 500 mg PO DAILY 11/02/21 11/02/21 History Cholecalciferol [Vitamin D3 (25 25 mcg PO DAILY 11/02/21 11/02/21 History Mcg = 1000 Iu)] Escitalopram [Lexapro] 20 mg PO HS 11/02/21 11/02/21 History Famotidine [Pepcid] 10 mg PO DAILY@0600 11/02/21 11/02/21 History Furosemide [Lasix] 20 mg PO DAILY@0600 11/02/21 11/02/21 History Linagliptin [Tradjenta] 5 mg PO DAILY 11/02/21 11/02/21 History Metoprolol Succinate [Toprol XL] 25 mg PO DAILY 11/02/21 11/02/21 History Sennosides/Docusate Sodium [Senna 1 tab PO BID 11/02/21 11/02/21 History Plus 8.6-50 mg Tablet] Zguard 1 applic TOPICAL HS 11/02/21 11/02/21 History Zinc 50 mg PO DAILY 11/02/21 11/02/21 History Allergies Allergy/AdvReac Type Severity Reaction Status Date / Time codeine Allergy Unknown Verified 11/02/21 07:03 Childhood morphine Allergy Unknown Verified 11/02/21 07:03 Childhood Physical Exam Vitals: Vital Signs Temp Pulse Resp BP Pulse Ox 11/02/21 07:57 97.6 F 125 H 12 100/86 98 11/02/21 06:27 117 H 93/61 11/02/21 05:35 97.9 F 126 H 16 102/74 96 Intake and Output 11/01/21 11/02/21 11/02/21 22:59 06:59 14:59 Other: Weight 102.058 kg Results 11/02/21 05:55 11/02/21 05:55 Cardiac Enzymes 11/02/21 Range/Units 05:55 Troponin I 0.024 (0.000-0.034) ng/mL Coagulation 11/02/21 Range/Units 05:55 PT 13.7 H (9.0-12.0) sec APTT 30.5 H (22.0-30.0) sec CBC 11/02/21 Range/Units 05:55 WBC 4.3 (3.8-10.6) k/uL RBC 3.10 L (4.30-5.90) m/uL Hgb 9.6 L (13.0-17.5) gm/dL Hct 28.5 L (39.0-53.0) % Plt Count 265 (150-450) k/uL Comprehensive Metabolic Panel 11/02/21 Range/Units 05:55 Sodium 132 L (137-145) mmol/L Potassium 3.8 (3.5-5.1) mmol/L Chloride 100 (98-107) mmol/L Carbon Dioxide 28 (22-30) mmol/L BUN 12 (9-20) mg/dL Creatinine 1.32 H (0.66-1.25) mg/dL Glucose 108 H (74-99) mg/dL Calcium 8.2 L (8.4-10.2) mg/dL Current Medications Generic Name Dose Route Start Last Admin Trade Name Freq PRN Reason Stop Dose Admin Acetaminophen 650 mg 11/02/21 07:57 Acetaminophen Tab 325 Mg Tab PO Q4H PRN Mild Pain Allopurinol 100 mg 11/02/21 21:00 Allopurinol 100 Mg Tab PO HS ADNE Amiodarone HCl 200 mg 11/02/21 09:00 11/02/21 08:01 Amiodarone 200 Mg Tab PO 200 mg DAILY ADEN Administration Amoxicillin/Clavulanate Potassium 1 each 11/02/21 09:00 11/02/21 08:12 Amoxic-Pot Clav 875-125mg 1 Each Tab PO 11/03/21 11:00 1 each Q12HR ADEN Administration Apixaban 5 mg 11/02/21 09:00 11/02/21 08:01 Apixaban 5 Mg Tab PO 5 mg BID ADEN Administration Protocol Atorvastatin Calcium 80 mg 11/02/21 21:00 Atorvastatin 80 Mg Tab PO HS ADEN Cyclobenzaprine HCl 10 mg 11/02/21 21:00 Cyclobenzaprine 10 Mg Tab PO HS ADEN Escitalopram Oxalate 20 mg 11/02/21 21:00 Escitalopram 20 Mg Tab PO HS ADEN Famotidine 10 mg 11/03/21 06:00 Famotidine 20 Mg Tab PO DAILY@0600 ADEN Linagliptin 5 mg 11/02/21 09:00 11/02/21 08:01 Linagliptin 5 Mg Tablet PO 5 mg DAILY ADEN Administration Metoprolol Succinate 25 mg 11/02/21 09:00 11/02/21 08:01 Metoprolol Succinate (Er) 25 Mg Tab.Er.24h PO 25 mg DAILY ADEN Administration Naloxone HCl 0.2 mg 11/02/21 07:09 Naloxone 0.4 Mg/Ml 1 Ml Vial IV Q2M PRN Opioid Reversal Senna/Docusate Sodium 1 each 11/02/21 09:00 11/02/21 08:08 Sennosides-Docusate Sodium 1 Each Tab PO 1 each BID ADEN Administration Intake and Output 11/01/21 11/02/21 11/02/21 22:59 06:59 14:59 Other: Weight 102.058 kg 11/02/21 05:55 11/02/21 05:55
[2021-11-02] MEDS ORDERED: DIGOXIN 250 MCG/ML 2 ML AMP IVP STA (10:50)
--- NOTE | 2021-11-02 11:51 | P.HPIM ---
History of Present Illness H&P Date: 11/02/21 HISTORY OF PRESENT ILLNESS This is a 70-year-old male patient of Dr. Saleh currently at [facility] for subacute rehab under the care of Dr. Acuna. 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 Mcfarland. He has a past medical history of COPD, coronary artery disease status post 3 vessel CABG in 1997, coronary stents, diabetes mellitus type 2, hyperlipidemia, history of stroke, history of non-ST elevated myocardial infarction, TIA, carotid stenosis, chronic back pain. He does have history of pneumothorax that required transferred [facility] where he had VATS procedure done in August 2021. Patient had a recent hospitalization in September at [facility] at which time he was treated for acute kidney injury, Covid 19 infection, acute on chronic respiratory failure. Patient was stabilized and discharged to [facility] for subacute rehab. Patient states that he was eating chicken and a piece of it at this cause laceration in the top of his mouth and there was bleeding and patient was sent in the hospital for evaluation. Patient states that he has been essentially wheelchair-bound since he had Covid infection. Patient presented to [facility] emergency center and was found to be in A. fib/atrial flutter with RVR with heart rate in the 120s 130s. Blood pressure 102/74, pulse ox 96% on room air, afebrile. Sodium 132, potassium 3.8, chloride 100, CO2 28, BUN 13 creatinine 1.3 to, blood sugar 108. Troponin 0.024. Magnesium 1.5, calcium 8.2. Coronavirus PCR not detected. Patient is seen today in the emergency center waiting for a on the cardiac stepdown unit. He has been seen by cardiology with recommendations to continue amiodarone, metoprolol and added digoxin, echocardiogram and continue anticoagulation. Patient may be considered for cardioversion. REVIEW OF SYSTEMS Constitutional: No fever, no chills, no night sweats. No weight change. No weakness, fatigue or lethargy. No daytime sleepiness. EENT: No headache. No blurred vision or double vision, no loss of vision. No loss of Hearing, no ringing in the ears, no dizziness. No nasal drainage or congestion. No epistaxis. No sore throat. Lungs: No shortness of breath, cough, no sputum production. No wheezing. Cardiovascular: No chest pain, no lower extremity edema. No palpitations. No paroxysmal nocturnal dyspnea. No orthopnea. No lightheadedness or dizziness. No syncopal episodes. Abdominal: No abdominal pain. No nausea, vomiting. No diarrhea. No constipation. No bloody or tarry stools. No loss of appetite. Genitourinary: No dysuria, increased frequency, urgency. No urinary retention. Musculoskeletal: No myalgias. No muscle weakness, no gait dysfunction, no frequent falls. No back pain. No neck pain. Integumentary: No wounds, no lesions. No rash or pruritus. No unusual bruising. No change in hair or nails. Neurologic: No aphasia. No facial droop. No change in mentation. No head injury. No headache. No paralysis. No paresthesia. Psychiatric: No depression. No anxiety. No mood swings. Endocrine: No abnormal blood sugars. No weight change. No excessive sweating or thirst. No cold intolerance. SOCIAL HISTORY Patient was a smoker and quit in 1997. No alcohol use and no marijuana or illicit drug use. Patient is and lives at home with his . He does not utilize oxygen, nebulizer, CPAP. . FAMILY HISTORY Mother at age 76. Father at age 32 from leukemia. Patient has 2 sisters one had history of stroke 1 coronary artery disease. Patient has 1 mother with coronary artery disease. PHYSICAL EXAMINATION Gen: This is a 70-year-old male. He is resting on the ER stretcher and appears to be comfortable and in no acute distress. HEENT: Head is atraumatic, normocephalic. Pupils equal, round. Sclerae is anicteric. Dentition is in very poor order. Multiple caries. NECK: Supple. No JVD. No lymphadenopathy. No thyromegaly. LUNGS: Clear to auscultation. No wheezes or rhonchi. No intercostal retractions. HEART: Regular rate and rhythm. No murmur. Tachycardia. ABDOMEN: Soft. Bowel sounds are present. No masses. No tenderness. EXTREMITIES: No pedal edema. No calf tenderness. Dorsalis pedis +2 bilaterally. NEUROLOGICAL: Patient is awake, alert and oriented x3. Cranial nerves 2 through 12 are grossly intact. ASSESSMENT AND PLAN 1. Atrial flutter with RVR. Consult cardiology appreciated. Continue amiodarone 200 mg daily, digoxin IV push followed by 250 g oral daily, continue Toprol-XL 25 mg daily. 2. Chronic persistent atrial fibrillation with previous cardioversion 2. Consult with cardiology appreciated. 3. Hypertension. Continue Toprol-XL. 4. Hyperlipidemia. Continue atorvastatin 80 mg at bedtime 5. Diabetes mellitus type 2. ContinueTradjenta and add NovoLog scale before meals and at bedtime 6. History of stroke. Continue atorvastatin and eliquis for secondary prevention. 7. Peripheral vascular disease with history of carotid stenosis. Continue atorvastatin and eliquis for secondary prevention. 8. Recent treatment for Covid 19 infection with acute on chronic respiratory failure. 9. Chronic kidney disease stage III. Avoid nephrotoxic agents, monitor renal function. 10. Anemia of chronic kidney disease. 11. Dental infection. Continue Augmentin 1 every 12 hours. 12. Generalized debility following recent hospitalization at [facility] for acute kidney injury, Covid 19 with acute on chronic respiratory failure. 13. Chronic back pain. Continue Flexeril 10 mg at bedtime. 14. COVID-19 testing negative. Patient has been hospitalized during a pandemic. CODE STATUS: Full code as discussed with patient. Patient will be admitted to the hospital for a minimum of 2 night stay. DISCHARGE PLAN Return to [facility]. Impression and plan of care have been directed as dictated by the signing physician. Luci Farrar nurse practitioner acting as scribe for signing physician. Past Medical History Past Medical History: COPD, CVA/TIA, Diabetes Mellitus, GERD/Reflux, Hyperlipidemia, Hypertension, Myocardial Infarction ([place]), Renal Disease Additional Past Medical History / Comment(s): COPD, CVA 1997, carotid artery disease, diabetes mellitus, chronic back pain, tenosynovitis involving the wrists and hands bilaterally, chronic renal failure, mild aortic stenosis with a peak gradient across the aortic valve of 70 mmHg Last Myocardial Infarction Date:: 2001 History of Any Multi-Drug Resistant Organisms: None Reported Past Surgical History: Coronary Bypass/CABG, Heart Catheterization With Stent, Hernia Repair Additional Past Surgical History / Comment(s): March 1998 Cabg TRIPLE vessel by Dr. Ge. [facility] with 3 stents. 4th stent 2015 at [place], COLONOSCOPY Past Anesthesia/Blood Transfusion Reactions: No Reported Reaction Date of Last Stent Placement:: March 1998, 2015 Past Psychological History: No Psychological Hx Reported Smoking Status: Former smoker Past Alcohol Use History: None Reported Past Drug Use History: None Reported - Past Family History Father Family Medical History: Cancer Additional Family Medical History / Comment(s): Leukemia Father of leukemia at age 32yrs Mother Family Medical History: COPD Additional Family Medical History / Comment(s): Mother was 76 when she . She had mental illness. Sister(s) Family Medical History: Coronary Artery Disease (CAD), CVA/TIA Brother(s) Family Medical History: Coronary Artery Disease (CAD) Medications and Allergies Home Medications Medication Instructions Recorded Confirmed Type Atorvastatin [Lipitor] 80 mg PO HS 12/29/14 11/02/21 History Cyclobenzaprine [Flexeril] 10 mg PO HS 02/10/15 11/02/21 History allopurinoL [Zyloprim] 100 mg PO HS 02/04/17 11/02/21 History Acetaminophen [Tylenol] 650 mg PO Q4H PRN 11/02/21 11/02/21 History Amiodarone [Cordarone] 200 mg PO DAILY 11/02/21 11/02/21 History Ammonium Lactate Lotion 1 applic TOPICAL BID 11/02/21 11/02/21 History [Lac-Hydrin 12% Lotion] Amoxic-Pot Clav 875-125Mg 1 tab PO Q12HR 11/02/21 11/02/21 History [Augmentin 875-125] Apixaban [Eliquis] 5 mg PO BID 11/02/21 11/02/21 History Ascorbic Acid [Vitamin C] 500 mg PO DAILY 11/02/21 11/02/21 History Cholecalciferol [Vitamin D3 (25 25 mcg PO DAILY 11/02/21 11/02/21 History Mcg = 1000 Iu)] Escitalopram [Lexapro] 20 mg PO HS 11/02/21 11/02/21 History Famotidine [Pepcid] 10 mg PO DAILY@0600 11/02/21 11/02/21 History Furosemide [Lasix] 20 mg PO DAILY@00 11/02/21 11/02/21 History Linagliptin [Tradjenta] 5 mg PO DAILY 11/02/21 11/02/21 History Metoprolol Succinate [Toprol XL] 25 mg PO DAILY 11/02/21 11/02/21 History Sennosides/Docusate Sodium [Senna 1 tab PO BID 11/02/21 11/02/21 History Plus 8.6-50 mg Tablet] Zguard 1 applic TOPICAL HS 11/02/21 11/02/21 History Zinc 50 mg PO DAILY 11/02/21 11/02/21 History Allergies Allergy/AdvReac Type Severity Reaction Status Date / Time codeine Allergy Unknown Verified 11/02/21 07:03 Childhood morphine Allergy Unknown Verified 11/02/21 07:03 Childhood Physical Exam Vitals: Vital Signs Temp Pulse Resp BP Pulse Ox 11/02/21 06:27 117 H 93/61 11/02/21 05:35 97.9 F 126 H 16 102/74 96 Intake and Output 11/01/21 11/02/21 11/02/21 22:59 06:59 14:59 Other: Weight 102.058 kg Results CBC & Chem 7: 11/02/21 05:55 11/02/21 05:55 Labs: Abnormal Lab Results - Last 24 Hours (Table) 11/02/21 11/02/21 11/02/21 Range/Units 05:55 05:55 05:55 RBC 3.10 L (4.30-5.90) m/uL Hgb 9.6 L (13.0-17.5) gm/dL Hct 28.5 L (39.0-53.0) % RDW 16.6 H (11.5-15.5) % PT 13.7 H (9.0-12.0) sec INR 1.3 H (<1.2) APTT 30.5 H (22.0-30.0) sec Sodium 132 L (137-145) mmol/L Creatinine 1.32 H (0.66-1.25) mg/dL Glucose 108 H (74-99) mg/dL Calcium 8.2 L (8.4-10.2) mg/dL Magnesium 1.5 L (1.6-2.3) mg/dL
[2021-11-02 12:04] LABS: Glucose,Whole Blood 101 mg/dL (75-99)
[2021-11-02] MEDS ORDERED: DIGOXIN 250 MCG/ML 2 ML AMP IVP ONE (16:50)
[2021-11-02] MEDS: INSULIN ASPART (NovoLOG) 100 UNIT/ML VIAL SQ SCH ×3 (16:51→21:12)
[2021-11-02 17:07] LABS: Glucose,Whole Blood 92 mg/dL (75-99)
[2021-11-02 20:59] LABS: Glucose,Whole Blood 85 mg/dL (75-99)
[2021-11-02] MEDS: ESCITALOPRAM 20 MG TAB PO SCH (21:18)
[2021-11-02] MEDS: allopurinoL 100 MG TAB PO SCH (21:18)
[2021-11-02] MEDS: ATORVASTATIN 80 MG TAB PO SCH (21:18)
[2021-11-02] MEDS: CYCLOBENZAPRINE 10 MG TAB PO SCH (21:18)
[2021-11-02] MEDS: DILTIAZEM ORAL 30 MG TAB PO SCH (22:16)
[2021-11-03 06:08] LABS: Glucose,Whole Blood 123 mg/dL (75-99)
[2021-11-03] MEDS: INSULIN ASPART (NovoLOG) 100 UNIT/ML VIAL SQ SCH ×4 (06:14→20:08)
[2021-11-03] MEDS: DILTIAZEM ORAL 30 MG TAB PO SCH ×3 (06:16→21:10)
[2021-11-03] MEDS: FAMOTIDINE 20 MG TAB PO SCH (06:16)
[2021-11-03] MEDS: AMOXIC-POT CLAV 875-125MG 1 EACH TAB PO SCH (08:31)
[2021-11-03] MEDS: APIXABAN 5 MG TAB PO SCH ×2 (08:31→20:08)
[2021-11-03] MEDS: METOPROLOL SUCCINATE (ER) 25 MG TAB.ER.24H PO SCH (08:31)
[2021-11-03] MEDS: AMIODARONE 200 MG TAB PO SCH (08:31)
[2021-11-03] MEDS: SENNOSIDES-DOCUSATE SODIUM 1 EACH TAB PO SCH ×2 (08:31→20:08)
[2021-11-03] MEDS: DIGOXIN 250 MCG TAB PO SCH (08:31)
--- NOTE | 2021-11-03 10:34 | ECHOF ---
Referral Reason:re: SOB MEASUREMENTS -------- HEIGHT: 182.9 cm WEIGHT: 102.1 kg BP: RVIDd: 3.4 cm (< 3.3) IVSd: 1.1 cm (0.6 - 1.1) LVIDd: 5.0 cm (3.9 - 5.3) LVPWd: 1.4 cm (0.6 - 1.1) IVSs: 1.9 cm LVIDs: 3.3 cm LVPWs: 2.2 cm Ao Diam: 3.2 cm (2.0 - 3.7) AV Cusp: 1.0 cm (1.5 - 2.6) LA Diam: 4.3 cm (2.7 - 3.8) AV maxP.84 mmHg AV meanP.84 mmHg RAP: 5.00 mmHg RVSP: 26.90 mmHg FINDINGS -------- Atrial fibrillation. This was a technically difficult study with suboptimal views. The left ventricular size is normal. There is moderate concentric left ventricular hypertrophy. O verall left ventricular systolic function is low-normal with, an EF between 50 - 55 %. The right ventricle is mildly enlarged. The left atrium is mildly dilated. The right atrial size is normal. Lumason used Aortic valve is trileaflet and is mildly thickened. There is mild aortic stenosis present. Peak/m sara gradient across the Aortic Valve is 16.84mmHg / 12.84mmHg. The mitral valve is normal. Mild mitral regurgitation is present. The tricuspid valve appears structurally normal. Mild tricuspid regurgitation present. Right vent ricular systolic pressure is normal at < 35 mmHg. There is no pulmonic regurgitation present. The aortic root size is normal. Normal inferior vena cava with normal inspiratory collapse consistent with estimated right atrial pre ssure of 5 mmHg. There is no pericardial effusion. CONCLUSIONS -------- 1. Atrial fibrillation. 2. The left ventricular size is normal. 3. There is moderate concentric left ventricular hypertrophy. 4. Overall left ventricular systolic function is low-normal with, an EF between 50 - 55 %. 5. The right ventricle is mildly enlarged. 6. The left atrium is mildly dilated. 7. Aortic valve is trileaflet and is mildly thickened. 8. There is mild aortic stenosis present. 9. Peak/mean gradient across the Aortic Valve is 16.84mmHg / 12.84mmHg. 10. Mild mitral regurgitation is present. 11. Mild tricuspid regurgitation present. 12. There is no pericardial effusion. PUPIL PERSONNEL SERVICES DIRECTOR: Stacey Galan RDCS
[2021-11-03 11:45] LABS: Glucose,Whole Blood 117 mg/dL (75-99)
--- NOTE | 2021-11-03 12:51 | CDI ---
Documentation Clarification Form Date: 11/03/2021 12:31:00 PM From: Rosalba Castañeda RN, CCDS Admit Date: 11/02/2021 07:09:00 AM Patient Name: Jovanni Dasilva Visit Number: [id number] Discharge Date: ATTENTION: The Clinical Documentation Specialists (CDI) and [facility] Coding Staff appreciate your assistance in clarifying documentation. Please respond to the clarification below the line at the bottom and electronically sign. The CDI & [facility] Coding staff will review the response and follow-up if needed. Please note: Queries are made part of the Legal Health Record. If you have any questions, please contact the author of this message via ITS. Dr. Orlando Perez Atrial Flutter is documented in the ED assessment, H/P and cardiology consult on 11/02/21. Additional clarification regarding the type of Atrial Flutter is requested. History/Risk factors: COPD, CVS, TIA, Diabetes Mellitus, Hypertension, Renal disease Clinical Indicators: 70-year-old male present with complaints of bleed in his mouth, EMS noticed patient was in A. fib with RVR with rate of 130s. In ED EKG interpretation: ventricular rate 133, a flutter, a. fib with rapid ventricular rate. 11/02 Vital signs: 102/74 126 16 97.9 96 % RA 11/02 Troponin 0.024 11/02 ECHO: Atrial Fibrillation, left ventricular systolic function is low-normal with, an EF between 50-55 % Right ventricle is mildly enlarged. 11/02 EKG/telemetry: Atrial Flutter/ Tachycardia with RVR rate 133 [address] Depression consider subenocardial injury Treatment: Telemetry Monitoring Amiodarone Hcl 200MG PO Daily, Toprol Xl 25 MG PO Daily, Lanoxin 250 MCG PO Daily, Cardizem 30MG PO Q8 HRS Eliquis 5 MG PO BID, Lanoxin 250 MCG IVP ONCE, 11/02 Please clarify the type of Atrial Flutter, if known: [ ] Typical/Type I [ ] Atypical/Type II [ ] Other, please specify [ ] Unable to determine (Template Last Revised: November 2020) MTDD
--- NOTE | 2021-11-03 14:00 | P.PN ---
Subjective Progress Note Date: 11/03/21 HISTORY OF PRESENT ILLNESS This is a 70-year-old male patient of Dr. Saleh currently at [facility] for subacute rehab under the care of Dr. Acuna. 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 Mcfarland. He has a past medical history of COPD, coronary artery disease status post 3 vessel CABG in 1997, coronary stents, diabetes mellitus type 2, hyperlipidemia, history of stroke, history of non-ST elevated myocardial infarction, TIA, carotid stenosis, chronic back pain. He does have history of pneumothorax that required transferred [facility] where he had VATS procedure done in Aug. Patient had a recent hospitalization in September at [facility] at which time he was treated for acute kidney injury, Covid 19 infection, acute on chronic respiratory failure. Patient was stabilized and discharged to [facility] for subacute rehab. Patient states that he was eating chicken and a piece of it at this cause laceration in the top of his mouth and there was bleeding and patient was sent in the hospital for evaluation. Patient states that he has been essentially wheelchair-bound since he had Covid infection. Patient presented to [facility] emergency center and was found to be in A. fib/atrial flutter with RVR with heart rate in the 120s 130s. Blood pressure 102/74, pulse ox 96% on room air, afebrile. Sodium 132, potassium 3.8, chloride 100, CO2 28, BUN 13 creatinine 1.3 to, blood sugar 108. Troponin 0.024. Magnesium 1.5, calcium 8.2. Coronavirus PCR not detected. Patient is seen today in the emergency center waiting for a on the cardiac stepdown unit. He has been seen by cardiology with recommendations to continue amiodarone, metoprolol and added digoxin, echocardiogram and continue anticoagulation. Patient may be considered for cardioversion. 11/03: Patient states that he is feeling pretty good today. He denies chest pain, palpitations. Heart rate is running in the 120s. Cardiology made medication adjustments yesterday and today, Cardizem 30 mg oral every 8 hours was added last night by cardiology. CBGs running between 85 and 123. Echocardiogram reveals EF of 50-55% with moderate concentric left ventricular hypertrophy, mild aortic stenosis, mild mitral regurgitation, mild tricuspid regurgitation. Despite discharge back to conceive tomorrow and if heart rate is controlled. REVIEW OF SYSTEMS Constitutional: No fever, no chills, no night sweats. No weight change. No weakness, fatigue or lethargy. No daytime sleepiness. EENT: No headache. No blurred vision or double vision, no loss of vision. No loss of Hearing, no ringing in the ears, no dizziness. No nasal drainage or co ngestion. No epistaxis. No sore throat. Lungs: No shortness of breath, cough, no sputum production. No wheezing. Cardiovascular: No chest pain, no lower extremity edema. Denies palpitations. No paroxysmal nocturnal dyspnea. No orthopnea. No lightheadedness or dizziness. No syncopal episodes. Abdominal: No abdominal pain. No nausea, vomiting. No diarrhea. No constipation. No bloody or tarry stools. No loss of appetite. Genitourinary: No dysuria, increased frequency, urgency. No urinary retention. Musculoskeletal: No myalgias. No muscle weakness, no gait dysfunction, no frequent falls. No back pain. No neck pain. Integumentary: No wounds, no lesions. No rash or pruritus. No unusual bruising. No change in hair or nails. Neurologic: No aphasia. No facial droop. No change in mentation. No head injury. No headache. No paralysis. No paresthesia. Psychiatric: No depression. No anxiety. No mood swings. Endocrine: No abnormal blood sugars. No weight change. No excessive sweating or thirst. No cold intolerance. PHYSICAL EXAMINATION Gen: This is a 70-year-old male. He is resting in bed and appears to be comfortable and in no acute distress. HEENT: Head is atraumatic, normocephalic. Pupils equal, round. Sclerae is anicteric. Dentition is in very poor order. Multiple caries. NECK: Supple. No JVD. No lymphadenopathy. No thyromegaly. LUNGS: Clear to auscultation. No wheezes or rhonchi. No intercostal retractions. HEART: Regular rate and rhythm. No murmur. Tachycardic. ABDOMEN: Soft. Bowel sounds are present. No masses. No tenderness. EXTREMITIES: No pedal edema. No calf tenderness. Dorsalis pedis +2 bilaterally. NEUROLOGICAL: Patient is awake, alert and oriented x3. Cranial nerves 2 through 12 are grossly intact. ASSESSMENT AND PLAN 1. Atrial flutter with RVR. Consult cardiology appreciated. Continue amiodarone 200 mg daily, digoxin 250 g oral daily, continue Toprol-XL 25 mg daily on Cardizem 30 mg every 8 hours added. 2. Chronic persistent atrial fibrillation with previous cardioversion 2. Consult with cardiology appreciated. 3. Hypertension. Continue Toprol-XL. 4. Hyperlipidemia. Continue atorvastatin 80 mg at bedtime 5. Diabetes mellitus type 2. ContinueTradjenta and add NovoLog scale before meals and at bedtime 6. History of stroke. Continue atorvastatin and eliquis for secondary prevention. 7. Peripheral vascular disease with history of carotid stenosis. Continue atorvastatin and eliquis for secondary prevention. 8. Recent treatment for Covid 19 infection with acute on chronic respiratory failure. 9. Chronic kidney disease stage III. Avoid nephrotoxic agents, monitor renal function. 10. Anemia of chronic kidney disease. 11. Dental infection. Continue Augmentin 1 every 12 hours. 12. Generalized debility following recent hospitalization at [facility] for acute kidney injury, Covid 19 with acute on chronic respiratory failure. 13. Chronic back pain. Continue Flexeril 10 mg at bedtime. 14. COVID-19 testing negative. Patient has been hospitalized during a pandemic. CODE STATUS: Full code as discussed with patient. DISCHARGE PLAN Return to [facility] . Impression and plan of care have been directed as dictated by the signing physician. Luci Farrar nurse practitioner acting as scribe for signing physician. Objective - Vital Signs Vital signs: Vital Signs Temp 97.8 F 11/03/21 08:00 Pulse 122 H 11/03/21 08:00 Resp 20 11/03/21 08:00 BP 111/62 11/03/21 08:00 Pulse Ox 98 11/03/21 08:00 Intake & Output 11/02/21 11/03/21 11/03/21 18:59 06:59 18:59 Output Total 375 Balance -375 Weight 102.058 kg Output: Urine 375 Other: Voiding Method Urinal # Voids 1 - Labs CBC & Chem 7: 11/02/21 05:55 11/02/21 05:55 Labs: Abnormal Lab Results - Last 24 Hours (Table) 11/02/21 11/02/21 11/03/21 Range/Units 05:55 11:56 06:07 Lymphocytes # (Manual) 0.90 L (1.0-4.8) k/uL Metamyelocytes # (Man) 0.04 H (0) k/uL Myelocytes # (Manual) 0.09 H (0) k/uL POC Glucose (mg/dL) 101 H 123 H (75-99) mg/dL
--- NOTE | 2021-11-03 15:59 | P.PN ---
Subjective HISTORY OF PRESENTING ILLNESS Patient is pleasant 70-year-old male with history of atrial fibrillation, atrial flutter, hypertension however borderline, hyperlipidemia, diabetes mellitus type 2, recent COVID-19 infection and significant debility unable to walk for the last few weeks who presents secondary to fairly asymptomatic A. flutter with RVR with heart rates 120 to 130s. Patient states he had COVID-19 pneumonia approximately a week and a half ago at [facility] and had been doing fairly well at rehab however visiting nurses check vitals with heart rates up in the 120s to 130s and therefore was sent to emergency department. He states he does not have any significant chest pain, pressure, shortness breath or lightheadedness. His blood pressures have been borderline 90s over 50s. He does follow with Dr. Mcfarland however admits it has been a few months as he has not been able to get an secondary COVID-19. He denies any recent changes to medications. He states he is unable to walk on his own more than a few steps as he is severely weak in his lower extremities. EKG shows atrial flutter with RVR with heart rate 130, right bundle branch block with LPFB, nonspecific minimal ST depressions. 11/03/2021 Patient seen and examined at bedside, no distress. He describes the chest pain or shortness of breath or palpitations. Telemetry reviewed patient in each fibrillation with controlled ventricular rates heart rates in the 70s. He's currently maintained on amiodarone 20 mg daily, Eliquis 5 mg twice a day, atorvastatin 80 mg nightly, digoxin 250mcg daily, Cardizem 30 mg Q8hr, metoprolol succinate 25 mg daily Echocardiogram revealed an EF 5055 percent, mild aortic stenosis with a peak/mean gradient of 16 mmHg/13 mmHg, mild mitral dictation, tricuspid regurgitation PHYSICAL EXAMINATION Vital signs reviewed. CONSTITUTIONAL: No apparent distress. HEENT: Neck SUpple. No JVD. CHEST EXAMINATION: Lungs are clear to auscultation. No chest wall tenderness is noted on palpation or with deep breathing. HEART EXAMINATION: Irregular rate and tachycardic. S1, S2 heard. No murmurs, gallops or rub. ABDOMEN: Soft, nontender. Positive bowel sounds. EXTREMITIES: 2+ peripheral pulses, no lower extremity edema and no calf tenderness. NEUROLOGIC EXAMINATION: Patient is awake, alert and oriented x3. ASSESSMENT 1. Typical Atrial flutter with RVR 2. History of persistent atrial fibrillation with previous 2 cardioversions on Eliquis 3. Hypertension however borderline 4. Recent COVID-19 infection 5. Significant debility with inability to stand up on his own 6. Chronic kidney disease PLAN We will continue current medication regimen, monitor on telemetry Further recommendations based on evaluation by Dr. Perze and clinical course Objective - Vital Signs Vital signs: Vital Signs Temp 97.6 F 11/03/21 11:50 Pulse 70 11/03/21 11:50 Resp 18 11/03/21 11:50 BP 113/62 11/03/21 11:50 Pulse Ox 99 11/03/21 11:50 Intake & Output 11/02/21 11/03/21 11/03/21 18:59 06:59 18:59 Intake Total 118 Output Total 375 Balance -375 118 Weight 102.058 kg Intake: Oral 118 Output: Urine 375 Other: Voiding Method Urinal Urinal # Voids 1 - Labs CBC & Chem 7: 11/02/21 05:55 11/02/21 05:55 Labs: Abnormal Lab Results - Last 24 Hours (Table) 11/03/21 11/03/21 Range/Units 06:07 11:44 POC Glucose (mg/dL) 123 H 117 H (75-99) mg/dL
[2021-11-03] MEDS: LINAGLIPTIN 5 MG TABLET PO SCH (16:18)
[2021-11-03 16:29] LABS: Glucose,Whole Blood 135 mg/dL (75-99)
[2021-11-03 20:02] LABS: Glucose,Whole Blood 211 mg/dL (75-99)
[2021-11-03] MEDS: CYCLOBENZAPRINE 10 MG TAB PO SCH (20:08)
[2021-11-03] MEDS: ESCITALOPRAM 20 MG TAB PO SCH (20:08)
[2021-11-03] MEDS: allopurinoL 100 MG TAB PO SCH (20:08)
[2021-11-03] MEDS: ATORVASTATIN 80 MG TAB PO SCH (20:08)
[2021-11-03] MEDS ORDERED: DILTIAZEM ORAL 30 MG TAB PO SCH (22:00)
[2021-11-04 06:15] LABS: Glucose,Whole Blood 152 mg/dL (75-99)
[2021-11-04] MEDS: INSULIN ASPART (NovoLOG) 100 UNIT/ML VIAL SQ SCH ×2 (06:38→11:43)
[2021-11-04] MEDS: FAMOTIDINE 20 MG TAB PO SCH (06:38)
[2021-11-04] MEDS: DILTIAZEM ORAL 30 MG TAB PO SCH (06:38)
--- NOTE | 2021-11-04 10:10 | P.DS ---
Providers Date of admission: 11/02/21 07:09 Expected date of discharge: 11/04/21 Attending physician: Jovanni Blandon Consults: 11/02/21 07:03 Consult Physician Routine Consulting Provider: Angel Mcfarland Consult Reason/Comments: afib w rvr Do you want consulting provider notified?: Yes Primary care physician: Randy Saleh [facility] Course: HISTORY OF PRESENT ILLNESS This is a 70-year-old male patient of Dr. Saleh currently at [facility] for subacute rehab under the care of Dr. Acuna. His retoucher is Dr. Mcfarland. He has a past medical history of COPD, coronary artery disease status post 3 vessel CABG in 1997, coronary stents, diabetes mellitus type 2, hyperlipidemia, history of stroke, history of non-ST elevated myocardial infarction, TIA, carotid stenosis, chronic back pain. He does have history of pneumothorax that required transferred [facility] where he had VATS procedure done in August 2021. Patient had a recent hospitalization in September at [facility] at which time he was treated for acute kidney injury, Covid 19 infection, acute on chronic respiratory failure. Patient was stabilized and di scharged to [facility] for subacute rehab. Patient states that he was eating chicken and a piece of it at this cause laceration in the top of his mouth and there was bleeding and patient was sent in the hospital for evaluation. Patient states that he has been essentially wheelchair-bound since he had Covid infection. Patient presented to [facility] emergency center and was found to be in A. fib/atrial flutter with RVR with heart rate in the 120s 130s. Blood pressure 102/74, pulse ox 96% on room air, afebrile. Sodium 132, potassium 3.8, chloride 100, CO2 28, BUN 13 creatinine 1.3 to, blood sugar 108. Troponin 0.024. Magnesium 1.5, calcium 8.2. Coronavirus PCR not detected. Patient is seen today in the emergency center waiting for a on the cardiac stepdown unit. He has been seen by cardiology with recommendations to continue amiodarone, metoprolol and added digoxin, echocardiogram and continue anticoagulation. Patient may be considered for cardioversion. 11/03: Patient states that he is feeling pretty good today. He denies chest pain, palpitations. Heart rate is running in the 120s. Cardiology made medication adjustments yesterday and today, Cardizem 30 mg oral every 8 hours was added last night by cardiology. CBGs running between 85 and 123. Echocardiogram reveals EF of 50-55% with moderate concentric left ventricular hypertrophy, mild aortic stenosis, mild mitral regurgitation, mild tricuspid regurgitation. Anticipate discharge back to conceive tomorrow and if heart rate is controlled. 11/04: Heart rate is running in the 70s, blood pressure 115/45, pulse ox 93% on 2 L nasal cannula, afebrile. Patient converted to sinus rhythm yesterday evening. Capillary blood glucose running between 135 and 211. Patient will be discharged back to [facility] in stable condition. DISCHARGE DIAGNOSES 1. Atrial flutter with RVR. 2. Chronic persistent atrial fibrillation with previous cardioversion 2. 3. Hypertension. 4. Hyperlipidemia. 5. Diabetes mellitus type 2. 6. History of stroke. 7. Peripheral vascular disease with history of carotid stenosis. 8. Recent treatment for Covid 19 infection with acute on chronic respiratory failure. 9. Chronic kidney disease stage III. 10. Anemia of chronic kidney disease. 11. Dental infection. 12. Generalized debility following recent hospitalization at [facility] for acute kidney injury, Covid 19 with acute on chronic respiratory failure. 13. Chronic back pain. 14. COVID-19 testing negative. Patient has been hospitalized during a pandem ic. DISCHARGE PLAN Return to [facility] Greater than 35 minutes was utilized and coordinating patient's discharge. Impression and plan of care have been directed as dictated by the signing physician. Luci Farrar nurse practitioner acting as scribe for signing physician. Patient Condition at Discharge: Good Plan - Discharge Summary New Discharge Prescriptions: New Diltiazem Oral [Cardizem*] 30 mg PO Q8H tab Digoxin [Lanoxin] 250 mcg PO DAILY tab Continue Atorvastatin [Lipitor] 80 mg PO HS Cyclobenzaprine [Flexeril] 10 mg PO HS allopurinoL [Zyloprim] 100 mg PO HS Acetaminophen [Tylenol] 650 mg PO Q4H PRN PRN Reason: Pain Sennosides/Docusate Sodium [Senna Plus 8.6-50 mg Tablet] 1 tab PO BID Amoxic-Pot Clav 875-125Mg [Augmentin 875-125] 1 tab PO Q12HR Zinc 50 mg PO DAILY Cholecalciferol [Vitamin D3 (25 Mcg = 1000 Iu)] 25 mcg PO DAILY Linagliptin [Tradjenta] 5 mg PO DAILY Famotidine [Pepcid] 10 mg PO DAILY@0600 Furosemide [Lasix] 20 mg PO DAILY@0600 Escitalopram [Lexapro] 20 mg PO HS Ascorbic Acid [Vitamin C] 500 mg PO DAILY Amiodarone [Cordarone] 200 mg PO DAILY Ammonium Lactate Lotion [Lac-Hydrin 12% Lotion] 1 applic TOPICAL BID Apixaban [Eliquis] 5 mg PO BID Metoprolol Succinate [Toprol XL] 25 mg PO DAILY Zguard 1 applic TOPICAL HS Discharge Medication List Atorvastatin [Lipitor] 80 mg PO HS 12/29/14 [History] Cyclobenzaprine [Flexeril] 10 mg PO HS 02/10/15 [History] allopurinoL [Zyloprim] 100 mg PO HS 02/04/17 [History] Acetaminophen [Tylenol] 650 mg PO Q4H PRN 11/02/21 [History] Amiodarone [Cordarone] 200 mg PO DAILY 11/02/21 [History] Ammonium Lactate Lotion [Lac-Hydrin 12% Lotion] 1 applic TOPICAL BID 11/02/21 [History] Amoxic-Pot Clav 875-125Mg [Augmentin 875-125] 1 tab PO Q12HR 11/02/21 [History] Apixaban [Eliquis] 5 mg PO BID 11/02/21 [History] Ascorbic Acid [Vitamin C] 500 mg PO DAILY 11/02/21 [History] Cholecalciferol [Vitamin D3 (25 Mcg = 1000 Iu)] 25 mcg PO DAILY 11/02/21 [History] Escitalopram [Lexapro] 20 mg PO HS 11/02/21 [History] Famotidine [Pepcid] 10 mg PO DAILY@0600 11/02/21 [History] Furosemide [Lasix] 20 mg PO DAILY@0600 11/02/21 [History] Linagliptin [Tradjenta] 5 mg PO DAILY 11/02/21 [History] Metoprolol Succinate [Toprol XL] 25 mg PO DAILY 11/02/21 [History] Sennosides/Docusate Sodium [Senna Plus 8.6-50 mg Tablet] 1 tab PO BID 11/02/21 [History] Zguard 1 applic TOPICAL HS 11/02/21 [History] Zinc 50 mg PO DAILY 11/02/21 [History] Digoxin [Lanoxin] 250 mcg PO DAILY tab 11/04/21 [Rx] Diltiazem Oral [Cardizem*] 30 mg PO Q8H tab 11/04/21 [Rx] Follow up Appointment(s)/Referral(s): Angel Mcfarland MD [STAFF PHYSICIAN] - 2 Weeks Randy Saleh DO [Primary Care Provider] - 1 Week (After discharge from [facility]) Discharge Disposition: TRANSFER TO SNF/ECF
[2021-11-04 10:12] VITALS: BP 101/52; PULSE 65; RESP 16; TEMP 98.3
[2021-11-04] MEDS: METOPROLOL SUCCINATE (ER) 25 MG TAB.ER.24H PO SCH (10:12)
[2021-11-04] MEDS: APIXABAN 5 MG TAB PO SCH (10:13)
[2021-11-04] MEDS: SENNOSIDES-DOCUSATE SODIUM 1 EACH TAB PO SCH (10:13)
[2021-11-04] MEDS: AMIODARONE 200 MG TAB PO SCH (10:13)
[2021-11-04] MEDS: DIGOXIN 250 MCG TAB PO SCH (10:13)
[2021-11-04] MEDS: LINAGLIPTIN 5 MG TABLET PO SCH (10:13)
[2021-11-04 11:35] LABS: Glucose,Whole Blood 133 mg/dL (75-99)
--- NOTE | 2021-11-04 12:03 | P.PN ---
Subjective HISTORY OF PRESENTING ILLNESS Patient is pleasant 70-year-old male with history of atrial fibrillation, atrial flutter, hypertension however borderline, hyperlipidemia, diabetes mellitus type 2, recent COVID-19 infection and significant debility unable to walk for the last few weeks who presents secondary to fairly asymptomatic A. flutter with RVR with heart rates 120 to 130s. Patient states he had COVID-19 pneumonia approximately a week and a half ago at [facility] and had been doing fairly well at rehab however visiting nurses check vitals with heart rates up in the 120s to 130s and therefore was sent to emergency department. He states he does not have any significant chest pain, pressure, shortness breath or lightheadedness. His blood pressures have been borderline 90s over 50s. He does follow with Dr. Mcfarland however admits it has been a few months as he has not been able to get an secondary COVID-19. He denies any recent changes to medications. He states he is unable to walk on his own more than a few steps as he is severely weak in his lower extremities. EKG shows atrial flutter with RVR with heart rate 130, right bundle branch block with LPFB, nonspecific minimal ST depressions. 11/04/2021 Patient seen and examined at bedside, no distress. He describes the chest pain or shortness of breath or palpitations. Telemetry reviewed patient in sinus mechanism HR 70s.EKG this morning revealed sinus rhythm HR 74, non-spcific ST-T wave abnormalities. He's currently maintained on amiodarone 200 mg daily, Eliquis 5 mg twice a day, atorvastatin 80 mg nightly, digoxin 250mcg daily, Cardizem 30 mg Q8hr, metoprolol succinate 25 mg daily Echocardiogram revealed an EF 5055 percent, mild aortic stenosis with a peak/mean gradient of 16 mmHg/13 mmHg, mild mitral dictation, tricuspid regurgi tation PHYSICAL EXAMINATION Vital signs reviewed. CONSTITUTIONAL: No apparent distress. HEENT: Neck SUpple. No JVD. CHEST EXAMINATION: Lungs are clear to auscultation. No chest wall tenderness is noted on palpation or with deep breathing. HEART EXAMINATION: Irregular rate and tachycardic. S1, S2 heard. No murmurs, gallops or rub. ABDOMEN: Soft, nontender. Positive bowel sounds. EXTREMITIES: 2+ peripheral pulses, no lower extremity edema and no calf tenderness. NEUROLOGIC EXAMINATION: Patient is awake, alert and oriented x3. ASSESSMENT 1. Typical Atrial flutter with RVR 2. History of persistent atrial fibrillation with previous 2 cardioversions on Eliquis 3. Hypertension however borderline 4. Recent COVID-19 infection 5. Significant debility with inability to stand up on his own 6. Chronic kidney disease PLAN From a cardiology perspective, patient is stable to be discharged to rehab on current medication regimen. Follow up with Dr. Mcfarland outpatient Objective - Vital Signs Vital signs: Vital Signs Temp 98.3 F 11/04/21 10:11 Pulse 65 11/04/21 10:11 Resp 16 11/04/21 10:11 BP 101/52 11/04/21 10:11 Pulse Ox 95 11/04/21 10:11 Intake & Output 11/03/21 11/04/21 11/04/21 18:59 06:59 18:59 Intake Total 238 240 Output Total 425 Balance 238 -185 Intake: Oral 238 240 Output: Urine 425 Other: Voiding Method Urinal Urinal - Labs CBC & Chem 7: 11/02/21 05:55 11/02/21 05:55 Labs: Abnormal Lab Results - Last 24 Hours (Table) 11/03/21 11/03/21 11/03/21 Range/Units 11:44 16:26 20:01 POC Glucose (mg/dL) 117 H 135 H 211 H (75-99) mg/dL 11/04/21 Range/Units 06:01 POC Glucose (mg/dL) 152 H (75-99) mg/dL
== END 2021-11-04 12:38 | DRG 310 ==
LOC: EC 05:25 → 3SCARD 07:09
PROVIDERS: ADMIT Internal Medicine Geriatric Medicine; ATTEND Internal Medicine Geriatric Medicine
DX: I48.3 Typical atrial flutter (principal); Z79.01 Long term (current) use of anticoagulants; I48.19 Other persistent atrial fibrillation; D63.1 Anemia in chronic kidney disease; E11.22 Type 2 diabetes mellitus with diabetic chronic kidney disease; E11.51 Type 2 diabetes mellitus with diabetic peripheral angiopathy without gangrene; E78.5 Hyperlipidemia, unspecified; G89.29 Other chronic pain; Z86.16 Personal history of COVID-19; Z20.822 Contact with and (suspected) exposure to COVID-19; I12.9 Hypertensive chronic kidney disease with stage 1 through stage 4 chronic kidney disease, or unspecified chronic kidney disease; N18.30 Chronic kidney disease, stage 3 unspecified; I65.29 Occlusion and stenosis of unspecified carotid artery; Z95.1 Presence of aortocoronary bypass graft; S01.512A Laceration without foreign body of oral cavity, initial encounter; I25.10 Atherosclerotic heart disease of native coronary artery without angina pectoris; I25.2 Old myocardial infarction; R53.81 Other malaise; I45.10 Unspecified right bundle-branch block; Z87.01 Personal history of pneumonia (recurrent); J44.9 Chronic obstructive pulmonary disease, unspecified; K04.7 Periapical abscess without sinus; Z79.84 Long term (current) use of oral hypoglycemic drugs; Z79.899 Other long term (current) drug therapy; Z80.6 Family history of leukemia; Z82.3 Family history of stroke; Z82.49 Family history of ischemic heart disease and other diseases of the circulatory system; Z82.5 Family history of asthma and other chronic lower respiratory diseases; Z86.73 Personal history of transient ischemic attack (TIA), and cerebral infarction without residual deficits; Z87.891 Personal history of nicotine dependence; Z95.5 Presence of coronary angioplasty implant and graft; Z99.3 Dependence on wheelchair; Z81.8 Family history of other mental and behavioral disorders
CPT/HCPCS: 36415; 80048; 83735; 84484; 85025; 85610; 85730; 87635; 93005; 93306; 96361; 96374; 99285

== ENCOUNTER 2021-11-23 19:04 | Observation (INO) | payer MEDICARE ==
[2021-11-23] MEDS ORDERED: SODIUM CHLORIDE 0.9% 1,000 ML IV STA ×2 (19:11)
--- NOTE | 2021-11-23 19:24 | ED ---
General Adult HPI - General Chief complaint: Abdominal Pain Stated complaint: Failure to thrive Time Seen by Provider: 11/23/21 19:04 Source: patient, EMS, RN notes reviewed Mode of arrival: EMS Limitations: physical limitation - History of Present Illness Initial comments: 70-year-old male history of multiple medical problems including COVID-19 about a month ago who is been at [facility] for rehab who apparently has been demonstrating failure to thrive he's had decreased oral intake is nauseated when he every tries to eat food. Feels generally weak. He was brought in by EMS he appears dehydrated. He was given a 200 mL fluid bolus with some improvement in his pressure. No fevers chills or sweats - Related Data Home Medications Medication Instructions Recorded Confirmed Atorvastatin [Lipitor] 80 mg PO HS 12/29/14 11/02/21 Cyclobenzaprine [Flexeril] 10 mg PO HS 02/10/15 11/02/21 allopurinoL [Zyloprim] 100 mg PO HS 02/04/17 11/02/21 Acetaminophen [Tylenol] 650 mg PO Q4H PRN 11/02/21 11/02/21 Amiodarone [Cordarone] 200 mg PO DAILY 11/02/21 11/02/21 Ammonium Lactate Lotion 1 applic TOPICAL BID 11/02/21 11/02/21 [Lac-Hydrin 12% Lotion] Amoxic-Pot Clav 875-125Mg 1 tab PO Q12HR 11/02/21 11/02/21 [Augmentin 875-125] Apixaban [Eliquis] 5 mg PO BID 11/02/21 11/02/21 Ascorbic Acid [Vitamin C] 500 mg PO DAILY 11/02/21 11/02/21 Cholecalciferol [Vitamin D3 (25 25 mcg PO DAILY 11/02/21 11/02/21 Mcg = 1000 Iu)] Escitalopram [Lexapro] 20 mg PO HS 11/02/21 11/02/21 Famotidine [Pepcid] 10 mg PO DAILY@59911/02/21 11/02/21 Furosemide [Lasix] 20 mg PO DAILY@0600 11/02/21 11/02/21 Linagliptin [Tradjenta] 5 mg PO DAILY 11/02/21 11/02/21 Metoprolol Succinate [Toprol XL] 25 mg PO DAILY 11/02/21 11/02/21 Sennosides/Docusate Sodium [Senna 1 tab PO BID 11/02/21 11/02/21 Plus 8.6-50 mg Tablet] Zguard 1 applic TOPICAL HS 11/02/21 11/02/21 Zinc 50 mg PO DAILY 11/02/21 11/02/21 Previous Rx's Medication Instructions Recorded Digoxin [Lanoxin] 250 mcg PO DAILY tab 11/04/21 Diltiazem Oral [Cardizem*] 30 mg PO Q8H tab 11/04/21 Allergies Allergy/AdvReac Type Severity Reaction Status Date / Time codeine Allergy Unknown Verified 11/02/21 07:03 Childhood morphine Allergy Unknown Verified 11/02/21 07:03 Childhood Review of Systems ROS Statement: Those systems with pertinent positive or pertinent negative responses have been documented in the HPI. ROS Other: All systems not noted in ROS Statement are negative. Past Medical History Past Medical History: COPD, CVA/TIA, Diabetes Mellitus, GERD/Reflux, Hyperlipidemia, Hypertension, Myocardial Infarction (AL), Renal Disease Additional Past Medical History / Comment(s): COPD, CVA 1997, carotid artery disease, diabetes mellitus, chronic back pain, tenosynovitis involving the wrist s and hands bilaterally, chronic renal failure, mild aortic stenosis with a peak gradient across the aortic valve of 70 mmHg Last Myocardial Infarction Date:: 2001 History of Any Multi-Drug Resistant Organisms: None Reported Past Surgical History: Coronary Bypass/CABG, Heart Catheterization With Stent, Hernia Repair Additional Past Surgical History / Comment(s): March 1998 Cabg TRIPLE vessel by Dr. Ge. [facility] with 3 stents. 4th stent 2016 at [facility] Past Anesthesia/Blood Transfusion Reactions: No Reported Reaction Date of Last Stent Placement:: March 19982015 Past Psychological History: No Psychological Hx Reported Smoking Status: Former smoker Past Alcohol Use History: None Reported Past Drug Use History: None Reported - Past Family History Father Family Medical History: Cancer Additional Family Medical History / Comment(s): Leukemia Father of leukemia at age 32yrs Mother Family Medical History: COPD Additional Family Medical History / Comment(s): Mother was 76 when she . She had mental illness. Sister(s) Family Medical History: Coronary Artery Disease (CAD), CVA/TIA Brother(s) Family Medical History: Coronary Artery Disease (CAD) General Exam - General Exam Comments Initial Comments: This is a well-developed well-nourished awake alert oriented times 3 male Limitations: physical limitation General appearance: alert, lethargic Head exam: Present: atraumatic, normocephalic, normal inspection Eye exam: Present: normal appearance, PERRL, EOMI. Absent: scleral icterus, conjunctival injection, periorbital swelling ENT exam: Present: mucous membranes dry Neck exam: Present: normal inspection. Absent: tenderness, meningismus, lymphadenopathy Respiratory exam: Present: normal lung sounds bilaterally. Absent: respiratory distress, wheezes, rales, rhonchi, stridor Cardiovascular Exam: Present: regular rate, normal rhythm, normal heart sounds. Absent: systolic murmur, diastolic murmur, rubs, gallop, clicks GI/Abdominal exam: Present: soft, normal bowel sounds. Absent: distended, tenderness, guarding, rebound, rigid Extremities exam: Present: normal inspection, full ROM, normal capillary refill. Absent: tenderness, pedal edema, joint swelling, calf tenderness Back exam: Present: normal inspection Neurological exam: Present: alert, oriented X3, CN II-XII intact Psychiatric exam: Present: normal affect, normal mood Skin exam: Present: warm, dry, intact, normal color, other (Poor skin turgor). Absent: rash Course Vital Signs 11/23/21 19:11 Temperature 97.5 F L Pulse Rate 60 Respiratory 16 Rate Blood Pressure 115/55 O2 Sat by Pulse 97 Oximetry - Reevaluation(s) Reevaluation #1: 11/23/21 20:36 Further information from the patient's he did have a pneumothorax in August this past year was seen at [facility] later transferred to [facility]. EKG Findings - EKG Results: EKG: interpreted by ERMD (Sinus rhythm rate 60. Interval 195 QRS duration 131 QT since QTC 480/480 interventricular conduction delay evidence of inferior changes artifact present) Medical Decision Making - Medical Decision Making I did discuss findings with patient family as well as with Dr. Gil patient will be admitted for IV antibiotics and IV fluids - Lab Data Result diagrams: 11/23/21 19:11 11/23/21 19:11 Lab Results 11/23/21 11/23/21 11/23/21 Range/Units 19:11 19:11 19:11 WBC 7.2 (3.8-10.6) k/uL RBC 3.05 L (4.30-5.90) m/uL Hgb 9.2 L (13.0-17.5) gm/dL Hct 28.5 L (39.0-53.0) % MCV 93.5 (80.0-100.0) fL MCH 30.1 (25.0-35.0) pg MCHC 32.2 (31.0-37.0) g/dL RDW 17.7 H (11.5-15.5) % Plt Count 242 (150-450) k/uL MPV 7.7 Neutrophils % 71 % Lymphocytes % 16 % Monocytes % 6 % Eosinophils % 4 % Basophils % 1 % Neutrophils # 5.2 (1.3-7.7) k/uL Lymphocytes # 1.2 (1.0-4.8) k/uL Monocytes # 0.4 (0-1.0) k/uL Eosinophils # 0.3 (0-0.7) k/uL Basophils # 0.0 (0-0.2) k/uL Hypochromasia Moderate Poikilocytosis Moderate Anisocytosis Slight Sodium 133 L (137-145) mmol/L Potassium 3.8 (3.5-5.1) mmol/L Chloride 101 (98-107) mmol/L Carbon Dioxide 24 (22-30) mmol/L Anion Gap 8 mmol/L BUN 22 H (9-20) mg/dL Creatinine 1.65 H (0.66-1.25) mg/dL Est GFR (CKD-EPI)AfAm 49 (>60 ml/min/1.73 sqM) Est GFR (CKD-EPI)NonAf 42 (>60 ml/min/1.73 sqM) Glucose 121 H (74-99) mg/dL Plasma Lactic Acid Paco 1.5 (0.7-2.0) mmol/L Calcium 7.8 L (8.4-10.2) mg/dL Magnesium 1.6 (1.6-2.3) mg/dL Total Bilirubin 1.3 (0.2-1.3) mg/dL AST 27 (17-59) U/L ALT 15 (4-49) U/L Alkaline Phosphatase 151 H (38-126) U/L Creatine Kinase <20 L (55-170) U/L Troponin I (0.000-0.034) ng/mL Total Protein 5.5 L (6.3-8.2) g/dL Albumin 2.6 L (3.5-5.0) g/dL 11/23/21 Range/Units 19:11 WBC (3.8-10.6) k/uL RBC (4.30-5.90) m/uL Hgb (13.0-17.5) gm/dL Hct (39.0-53.0) % MCV (80.0-100.0) fL MCH (25.0-35.0) pg MCHC (31.0-37.0) g/dL RDW (11.5-15.5) % Plt Count (150-450) k/uL MPV Neutrophils % % Lymphocytes % % Monocytes % % Eosinophils % % Basophils % % Neutrophils # (1.3-7.7) k/uL Lymphocytes # (1.0-4.8) k/uL Monocytes # (0-1.0) k/uL Eosinophils # (0-0.7) k/uL Basophils # (0-0.2) k/uL Hypochromasia Poikilocytosis Anisocytosis Sodium (137-145) mmol/L Potassium (3.5-5.1) mmol/L Chloride (98-107) mmol/L Carbon Dioxide (22-30) mmol/L Anion Gap mmol/L BUN (9-20) mg/dL Creatinine (0.66-1.25) mg/dL Est GFR (CKD-EPI)AfAm (>60 ml/min/1.73 sqM) Est GFR (CKD-EPI)NonAf (>60 ml/min/1.73 sqM) Glucose (74-99) mg/dL Plasma Lactic Acid Paco (0.7-2.0) mmol/L Calcium (8.4-10.2) mg/dL Magnesium (1.6-2.3) mg/dL Total Bilirubin (0.2-1.3) mg/dL AST (17-59) U/L ALT (4-49) U/L Alkaline Phosphatase (38-126) U/L Creatine Kinase (55-170) U/L Troponin I 0.014 (0.000-0.034) ng/mL Total Protein (6.3-8.2) g/dL Albumin (3.5-5.0) g/dL - Radiology Data Radiology results: report reviewed (Image reviewed as well as report evidence of a new left lower lobe infiltrate), image reviewed Disposition Clinical Impression: Left lower lobe pneumonia, Dehydration, Intractable nausea and vomiting, Failure to thrive in adult, Renal insufficiency syndrome, Chronic anemia Disposition: ADMITTED IP TO THIS [facility] Condition: Fair Referrals: Randy Saleh DO [Primary Care Provider] - 1-2 days
[2021-11-23 19:33] LABS: Anisocytosis Slight; Basophils % (A) 1 %; Eosinophils # (A) 0.3 k/uL (0-0.7); Eosinophils % (A) 4 %; HCT 28.5 % (39.0-53.0); HGB 9.2 gm/dL (13.0-17.5); Hypochromasia Moderate; Lymphocytes # (A) 1.2 k/uL (1.0-4.8); Lymphocytes % (A) 16 %; MCH 30.1 pg (25.0-35.0); MCHC 32.2 g/dL (31.0-37.0); MCV 93.5 fL (80.0-100.0); Mean Platelet Volume 7.7; Monocytes # (A) 0.4 k/uL (0-1.0); Monocytes % (A) 6 %; Neutrophils # (A) 5.2 k/uL (1.3-7.7); Neutrophils % (A) 71 %; Platelet Count 242 k/uL (150-450); Poikilocytosis Moderate; RBC 3.05 m/uL (4.30-5.90); RDW 17.7 % (11.5-15.5); WBC 7.2 k/uL (3.8-10.6)
[2021-11-23 19:44] LABS: ALT 15 U/L (4-49); AST 27 U/L (17-59); African American GFR (CKD) 49 (>60 ml/min/1.73 sqM); Albumin 2.6 g/dL (3.5-5.0); Alkaline Phosphatase 151 U/L (38-126); Anion Gap 8 mmol/L; Blood Urea Nitrogen 22 mg/dL (9-20); Calcium 7.8 mg/dL (8.4-10.2); Carbon Dioxide 24 mmol/L (22-30); Chloride 101 mmol/L (98-107); Creatine Kinase <20 U/L (55-170); Glucose 121 mg/dL (74-99); Magnesium 1.6 mg/dL (1.6-2.3); Non-African American GFR(CKD) 42 (>60 ml/min/1.73 sqM); Potassium 3.8 mmol/L (3.5-5.1); Sodium 133 mmol/L (137-145); Total Bilirubin 1.3 mg/dL (0.2-1.3); Total Protein 5.5 g/dL (6.3-8.2)
--- NOTE | 2021-11-23 19:45 | XR ---
EXAMINATION TYPE: XR KUB DATE OF EXAM: 11/23/2021 COMPARISON: 02/26/2011 HISTORY: Weakness TECHNIQUE: 2 views supine FINDINGS: There is no sign of intestinal obstruction or pneumoperitoneum. Fecal pattern is normal. Th ere is no evidence of a mass. There are no calcifications over the kidneys. IMPRESSION: Nonacute abdomen. No adverse change.
--- NOTE | 2021-11-23 20:19 | XR ---
EXAMINATION TYPE: XR chest 2V DATE OF EXAM: 11/23/2021 COMPARISON: September 26, 2017 HISTORY: Weakness TECHNIQUE: 3 views FINDINGS: There is some blunting of the left costophrenic angle. There are chest leads. There is incr eased interstitial density left lower lobe. There are sternal wires. No heart failure seen. IMPRESSION: There is some pleural reaction and interstitial pneumonia left lower lobe which is new co mpared to old exam. No heart failure.
[2021-11-23] MEDS ORDERED: PIPERACILLIN-TAZOBACTAM 3.375 GM in SODIUM CHLORIDE 0.9% 100 ML IVPB STA (20:38)
[2021-11-23] MEDS ORDERED: IPRATROPIUM-ALBUTEROL 3 ML NEB INHALATION PRN (20:46)
[2021-11-23] MEDS ORDERED: PNEUMONIA PROTOCOL UTILIZED 1 EACH MISC PO PRN (20:46)
[2021-11-23] MEDS ORDERED: ACETAMINOPHEN TAB 325 MG TAB PO PRN (20:49)
[2021-11-23] MEDS ORDERED: CYCLOBENZAPRINE 10 MG TAB PO SCH (21:00)
[2021-11-23] MEDS ORDERED: allopurinoL 100 MG TAB PO SCH (21:00)
[2021-11-23 21:54] LABS: Appearance,Urine Clear (Clear); Bilirubin,Urine Negative (Negative); Blood,Urine Negative (Negative); Color,Urine Yellow; Glucose,Urine (UA) Negative (Negative); Hyaline Casts,Urine 24 /lpf (0-2); Ketones,Urine Negative (Negative); Leukocyte Esterase,Urine Moderate (Negative); Mucus,Urine Rare /hpf; Nitrite,Urine Negative (Negative); Protein,Urine Trace (Negative); RBC,Urine 1 /hpf (0-5); Specific Gravity,Urine 1.021 (1.001-1.035); Squamous Epithelial Cell,Urine 1 /hpf (0-4); WBC,Urine 23 /hpf (0-5)
[2021-11-23] MEDS ORDERED: ATORVASTATIN 80 MG TAB PO SCH (22:00)
[2021-11-23] MEDS ORDERED: ESCITALOPRAM 20 MG TAB PO SCH (22:00)
[2021-11-23] MEDS ORDERED: ZINC OXIDE 20% OINT 28.4 GM TUBE TOPICAL SCH (22:00)
[2021-11-23] MEDS: SENNOSIDES-DOCUSATE SODIUM 1 EACH TAB PO SCH (23:02)
[2021-11-23] MEDS: APIXABAN 5 MG TAB PO SCH (23:07)
[2021-11-23] MEDS: DILTIAZEM ORAL 30 MG TAB PO SCH (23:08)
[2021-11-24] MEDS: DILTIAZEM ORAL 30 MG TAB PO SCH (05:33)
[2021-11-24] MEDS ORDERED: FUROSEMIDE 20 MG TAB PO SCH (06:00)
[2021-11-24] MEDS ORDERED: FAMOTIDINE 20 MG TAB PO SCH (06:00)
[2021-11-24 06:17] VITALS: RESP 18
[2021-11-24] MEDS: APIXABAN 5 MG TAB PO SCH (08:02)
[2021-11-24] MEDS: SENNOSIDES-DOCUSATE SODIUM 1 EACH TAB PO SCH (08:03)
--- NOTE | 2021-11-24 08:14 | XR ---
EXAMINATION TYPE: XR chest 2V DATE OF EXAM: 11/24/2021 COMPARISON: Chest x-ray 11/23/[address] 11/05/2019 and 04/04/2016 HISTORY: Pneumonia TECHNIQUE: Frontal and lateral views of the chest are obtained. FINDINGS: Patient is post median sternotomy. Cardiac mediastinal silhouette is likely stable accoun ting for differences in technique. No evident pneumothorax. Patchy density, blunting the left costoph renic angle is stable. Lung volumes are low, patient is rotated. Increased AP diameter of the chest noted with some flatteni ng the hemidiaphragms suggestive of underlying COPD. . IMPRESSION: Difficult to exclude basilar atelectasis versus pneumonia, there is underlying emphysema . Prominence of the appearance of the heart at least in part due to prominent epicardial fat pads.
[2021-11-24] MEDS ORDERED: LINAGLIPTIN 5 MG TABLET PO SCH (09:00)
[2021-11-24] MEDS ORDERED: CHOLECALCIFEROL 25 MCG (1000 IU) TABLET PO SCH (09:00)
[2021-11-24] MEDS ORDERED: AMIODARONE 200 MG TAB PO SCH (09:00)
[2021-11-24] MEDS ORDERED: ZINC SULFATE 220 MG CAP PO SCH (09:00)
[2021-11-24] MEDS ORDERED: ASCORBIC ACID 500 MG TAB PO SCH (09:00)
[2021-11-24] MEDS ORDERED: METOPROLOL SUCCINATE (ER) 25 MG TAB.ER.24H PO SCH (09:00)
[2021-11-24] MEDS ORDERED: DIGOXIN 250 MCG TAB PO SCH (09:00)
[2021-11-24 10:55] VITALS: BP 111/48; PULSE 61; TEMP 98.3
--- NOTE | 2021-11-24 13:46 | P.HPIM ---
History of Present Illness H&P Date: 11/24/21 HISTORY AND PHYSICAL AND DISCHARGE SUMMARY: HISTORY OF PRESENT ILLNESS This is a 70-year-old male patient of Dr. Saleh currently at [facility] for subacute rehab under the care of Dr. Acuna. His manager school is Dr. Mcfarland. He has a past medical history of COPD, coronary artery disease status post 3 vessel CABG in 1997, coronary stents, diabetes mellitus type 2, hyperlipidemia, history of stroke, history of non-ST elevated myocardial infarction, TIA, carotid stenosis, chronic back pain. He does have history of pneumothorax that required transferred [facility] where he had VATS procedure done in August 2021. Patient had a recent hospitalization in September at [facility] at which time he was treated for acute kidney injury, Covid 19 infection, acute on chronic respiratory failure. Patient was stabilized and discharged to [facility] for subacute rehab. He was admitted to [facility] in October for A. fib with RVR and he was started on Cardizem and digoxin at that time. He was stabilized and discharged back to [facility] for subacute rehab. Echocardiogram revealed EF of 50-55% with moderate concentric left ventricular hypertrophy, mild aortic stenosis, mild mitral regurgitation, mild tricuspid regurgitation.. Patient states that he has been essentially wheelchair-bound since he had Covid infection. Patient presented to [facility] emergency center as a transfer from [facility] due to decreased oral intake and nausea, generalized weakness. He was found to be afebrile, heart rate in the 60s, blood pressure 115/55, pulse ox 97% on room air. EKG was a sinus rhythm with no acute ST changes. WBC 7.2, hematoma 9.2, platelet count 252. Sodium 133, potassium 3.8, chloride 101, CO2 24, BUN 22 and creatinine 1.65. Blood sugar 121. Alkaline phosphatase 151. Albumin 2.6. Urinalysis showed moderate leukoesterase, Claire BC is 23, hyaline casts 24. KUB reveals nonacute abdomen. Chest x-ray reveals some pleural reaction and interstitial pneumonia left lower lobe which is new Repeat chest x-ray reveals difficult to exclude basilar atelectasis versus pneumonia. There is underlying emphysema. Prominence of the heart at least in part due to prominent epicardial fat pads. Patient is seen today in the emergency center waiting for a room on the observation unit. He is not requiring oxygen, no dyspnea and denies any shortness of breath, patient has been afebrile, vital signs stable, no tachyc ardia.. Patient will be discharged back to [facility] today in stable condition on Levaquin and DuoNeb treatments added. REVIEW OF SYSTEMS Constitutional: No fever, no chills, no night sweats. No weight change. Reports chronic weakness, no fatigue no lethargy. No daytime sleepiness. EENT: No headache. No blurred vision or double vision, no loss of vision. No loss of Hearing, no ringing in the ears, no dizziness. No nasal drainage or congestion. No epistaxis. No sore throat. Lungs: No shortness of breath, cough, no sputum production. No wheezing. Cardiovascular: No chest pain, no lower extremity edema. No palpitations. No paroxysmal nocturnal dyspnea. No orthopnea. No lightheadedness or dizziness. No syncopal episodes. Abdominal: No abdominal pain. No nausea, vomiting. No diarrhea. No constipation. No bloody or tarry stools. No loss of appetite. Genitourinary: No dysuria, increased frequency, urgency. No urinary retention. Musculoskeletal: No myalgias. Reports muscle weakness, reports chronic gait dysfunction, no frequent falls. No back pain. No neck pain. Integumentary: No wounds, no lesions. No rash or pruritus. No unusual bruising . No change in hair or nails. Neurologic: No aphasia. No facial droop. No change in mentation. No head injury. No headache. No paralysis. No paresthesia. Psychiatric: No depression. No anxiety. No mood swings. Endocrine: No abnormal blood sugars. No weight change. No excessive sweating or thirst. No cold intolerance. SOCIAL HISTORY Patient was a smoker and quit in 1997. No alcohol use and no marijuana or illicit drug use. Patient is and lives at home with his . He does not utilize oxygen, nebulizer, CPAP. . FAMILY HISTORY Mother at age 76. Father at age 32 from leukemia. Patient has 2 sisters one had history of stroke 1 coronary artery disease. Patient has 1 mother with coronary artery disease. PHYSICAL EXAMINATION Gen: This is a 70-year-old male. He is resting on the ER stretcher and appears to be comfortable and in no acute distress. HEENT: Head is atraumatic, normocephalic. Pupils equal, round. Sclerae is anicteric. Dentition is in very poor order. Multiple caries. NECK: Supple. No JVD. No lymphadenopathy. No thyromegaly. LUNGS: Clear to auscultation. No wheezes or rhonchi. No intercostal retractions. HEART: Regular rate and rhythm. No murmur. Tachycardia. ABDOMEN: Soft. Bowel sounds are present. No masses. No tenderness. EXTREMITIES: No pedal edema. No calf tenderness. Dorsalis pedis +2 bilaterally. NEUROLOGICAL: Patient is awake, alert and oriented x3. Cranial nerves 2 through 12 are grossly intact. ASSESSMENT AND PLAN 1. Left lower lobe pneumonia. Patient is status post 1 dose of Zosyn and IV fluids 1 L. 2. Chronic persistent atrial fibrillation with previous cardioversion 2. Continue amiodarone, eliquis, Cardizem, digoxin, Toprol-XL. 3. Hypertension. Continue Toprol-XL, Cardizem, Lasix. 4. Hyperlipidemia. Continue atorvastatin 80 mg at bedtime 5. Diabetes mellitus type 2. ContinueTradjenta. 6. History of stroke. Continue atorvastatin and eliquis for secondary prevention. 7. Peripheral vascular disease with history of carotid stenosis. Continue atorvastatin and eliquis for secondary prevention. 8. Covid 19 infection 09/2021 with acute on chronic respiratory failure. 9. Chronic kidney disease stage III. Avoid nephrotoxic agents, monitor renal function. 10. Anemia of chronic kidney disease. 11. Generalized debility following recent hospitalization at [facility] for acute kidney injury, Covid 19 with acute on chronic respiratory failure. 12. Chronic back pain. Continue Flexeril 10 mg at bedtime. Patient placed observation status. DISCHARGE MEDICATIONS Atorvastatin [Lipitor] 80 mg PO HS@2100 12/29/14 [History] Cyclobenzaprine [Flexeril] 10 mg PO HS@209902/10/15 [History] allopurinoL [Zyloprim] 100 mg PO HS@2100 02/04/17 [History] Acetaminophen [Tylenol] 650 mg PO Q4H PRN 11/02/21 [History] Amiodarone [Cordarone] 200 mg PO DAILY@0900 11/02/21 [History] Ammonium Lactate Lotion [Lac-Hydrin 12% Lotion] 1 applic TOPICAL BID 11/02/21 [History] Apixaban [Eliquis] 5 mg PO DIRECTED 11/02/21 [History] Ascorbic Acid [Vitamin C] 500 mg PO DAILY@0911/02/21 [History] Cholecalciferol [Vitamin D3 (25 Mcg = 1000 Iu)] 25 mcg PO DAILY@0900 11/02/21 [History] Escitalopram [Lexapro] 20 mg PO HS@209911/02/21 [History] Furosemide [Lasix] 20 mg PO DAILY@0611/02/21 [History] Linagliptin [Tradjenta] 5 mg PO DAILY@0911/02/21 [History] Metoprolol Succinate [Toprol XL] 25 mg PO DAILY@89911/02/21 [History] Sennosides/Docusate Sodium [Senna Plus 8.6-50 mg Tablet] 1 tab PO BID@0900,209911/02/21 [History] Zguard 1 applic TOPICAL HS 11/02/21 [History] Zinc 50 mg PO DAILY@0911/02/21 [History] Digoxin 250 mcg PO DAILY@0911/23/21 [History] Lactose-Reduced Food [Ensure Plus] 1 can PO BID@0900,209911/23/21 [History] Pantoprazole Sodium [Protonix] 40 mg PO BID@0600,1700 11/23/21 [History] dilTIAZem HCL 30 mg PO TID@0600,1400,2200 11/23/21 [History] Ipratropium-Albuterol Nebulize [Duoneb 0.5 mg-3 mg/3 ml Soln] 3 ml INHALATION RT-Q8H PRN ml 11/24/21 [Rx] Levofloxacin [Levaquin] 500 mg PO DAILY 5 Days #5 tab 11/24/21 [Rx] DISCHARGE PLAN Return to [facility]. Greater than 35 minutes was utilized and coordinating patient's discharge. Impression and plan of care have been directed as dictated by the signing physician. Luci Farrar nurse practitioner acting as scribe for signing physician. Past Medical History Past Medical History: COPD, CVA/TIA, Diabetes Mellitus, GERD/Reflux, Hyperlipidemia, Hypertension, Myocardial Infarction ([place]), Renal Disease Additional Past Medical History / Comment(s): COPD, CVA 1997, carotid artery disease, diabetes mellitus, chronic back pain, tenosynovitis involving the wrists and hands bilaterally, chronic renal failure, mild aortic stenosis with a peak gradient across the aortic valve of 70 mmHg; three heart attacks, last in 2001 Last Myocardial Infarction Date:: 2001 History of Any Multi-Drug Resistant Organisms: None Reported Past Surgical History: Coronary Bypass/CABG, Heart Catheterization With Stent, Hernia Repair Additional Past Surgical History / Comment(s): March 1998 Cabg TRIPLE vessel by Dr. Ge. [facility] with 3 stents. 4th stent 2016 at [place], [facility] Past Anesthesia/Blood Transfusion Reactions: No Reported Reaction Date of Last Stent Placement:: March 1998, 2015 Past Psychological History: No Psychological Hx Reported Additional Psychological History / Comment(s): Pt lives with his in their home. He is normally independent. He drives a car. Is in [facility] having difficulty ambulating. Smoking Status: Former smoker Past Alcohol Use History: None Reported Additional Past Alcohol Use History / Comment(s): QUIT SMOKING 1997 Past Drug Use History: None Reported - Past Family History Father Family Medical History: Cancer Additional Family Medical History / Comment(s): Leukemia Father of leukemia at age 32yrs Mother Family Medical History: COPD Additional Family Medical History / Comment(s): Mother was 76 when she . She had mental illness. Sister(s) Family Medical History: Coronary Artery Disease (CAD), CVA/TIA Brother(s) Family Medical History: Coronary Artery Disease (CAD) Medications and Allergies Home Medications Medication Instructions Recorded Confirmed Type Atorvastatin [Lipitor] 80 mg PO HS@209912/29/14 11/23/21 History Cyclobenzaprine [Flexeril] 10 mg PO HS@209902/10/15 11/23/21 History allopurinoL [Zyloprim] 100 mg PO HS@209902/04/17 11/23/21 History Acetaminophen [Tylenol] 650 mg PO Q4H PRN 11/02/21 11/23/21 History Amiodarone [Cordarone] 200 mg PO DAILY@0900 11/02/21 11/23/21 History Ammonium Lactate Lotion 1 applic TOPICAL BID 11/02/21 11/23/21 History [Lac-Hydrin 12% Lotion] Apixaban [Eliquis] 5 mg PO DIRECTED 11/02/21 11/23/21 History Ascorbic Acid [Vitamin C] 500 mg PO DAILY@0900 11/02/21 11/23/21 History Cholecalciferol [Vitamin D3 (25 25 mcg PO DAILY@0900 11/02/21 11/23/21 History Mcg = 1000 Iu)] Escitalopram [Lexapro] 20 mg PO HS@209911/02/21 11/23/21 History Furosemide [Lasix] 20 mg PO DAILY@0600 11/02/21 11/23/21 History Linagliptin [Tradjenta] 5 mg PO DAILY@0900 11/02/21 11/23/21 History Metoprolol Succinate [Toprol XL] 25 mg PO DAILY@0900 11/02/21 11/23/21 History Sennosides/Docusate Sodium [Senna 1 tab PO BID@0900,2100 11/02/21 11/23/21 History Plus 8.6-50 mg Tablet] Zguard 1 applic TOPICAL HS 11/02/21 11/23/21 History Zinc 50 mg PO DAILY@0900 11/02/21 11/23/21 History Digoxin 250 mcg PO DAILY@0900 11/23/21 11/23/21 History Lactose-Reduced Food [Ensure Plus] 1 can PO BID@0900,209911/23/21 11/23/21 History Pantoprazole Sodium [Protonix] 40 mg PO BID@0600,1700 11/23/21 11/23/21 History dilTIAZem HCL 30 mg PO TID@0600,1400,2200 11/23/21 11/23/21 History Ipratropium-Albuterol Nebulize 3 ml INHALATION RT-Q8H PRN ml 11/24/21 Rx [Duoneb 0.5 mg-3 mg/3 ml Soln] Levofloxacin [Levaquin] 500 mg PO DAILY 5 Days #5 tab 11/24/21 Rx Allergies Allergy/AdvReac Type Severity Reaction Status Date / Time codeine Allergy Unknown Verified 11/23/21 20:57 Childhood morphine Allergy Unknown Verified 11/23/21 20:57 Childhood Physical Exam Vitals: Vital Signs Temp Pulse Pulse Resp BP BP Pulse Ox 11/24/21 10:55 98.3 F 61 18 111/48 92 L 11/24/21 08:00 18 11/24/21 06:56 18 95 11/24/21 06:15 98.1 F 55 L 18 114/52 11/24/21 02:00 16 11/23/21 21:00 98.5 F 78 16 110/55 99 11/23/21 19:11 97.5 F L 60 16 115/55 97 Intake and Output 11/23/21 11/24/21 11/24/21 22:59 06:59 14:59 Intake Total 240 Balance 240 Intake: Oral 240 Other: Voiding Method Urinal Urinal Weight 102.058 kg Results CBC & Chem 7: 11/23/21 19:11 11/23/21 19:11 Labs: Abnormal Lab Results - Last 24 Hours (Table) 11/23/21 11/23/21 11/23/21 Range/Units 19:11 19:11 19:11 RBC 3.05 L (4.30-5.90) m/uL Hgb 9.2 L (13.0-17.5) gm/dL Hct 28.5 L (39.0-53.0) % RDW 17.7 H (11.5-15.5) % Sodium 133 L (137-145) mmol/L BUN 22 H (9-20) mg/dL Creatinine 1.65 H (0.66-1.25) mg/dL Glucose 121 H (74-99) mg/dL Calcium 7.8 L (8.4-10.2) mg/dL Alkaline Phosphatase 151 H (38-126) U/L Creatine Kinase <20 L (55-170) U/L Total Protein 5.5 L (6.3-8.2) g/dL Albumin 2.6 L (3.5-5.0) g/dL Urine Protein Trace H (Negative) Ur Leukocyte Esterase Moderate H (Negative) Urine WBC 23 H (0-5) /hpf Hyaline Casts 24 H (0-2) /lpf Urine Mucus Rare H (None) /hpf Microbiology - Last 24 Hours (Table) 11/23/21 19:11 Urine Culture - Preliminary Urine,Voided Thrombosis Risk Factor Assmnt - Choose All That Apply Any of the Below Risk Factors Present?: Yes Each Factor Represents 1 point: Abnormal pulmonary function (COPD), Obesity (BMI >25) Other Risk Factors: Yes Each Risk Factor Represents 2 Points: Age 61-74 years Thrombosis Risk Factor Assessment Total Risk Factor Score: 4 Thrombosis Risk Factor Assessment Level: Moderate Risk
== END 2021-11-24 14:28 ==
LOC: EC 19:04 → SUPCPDRO 19:04 → 1SOBS 20:47 → 6NMEDSUR 11-24 03:36 → 1SOBS 11-24 04:20 → 6NMEDSUR 11-24 12:07
PROVIDERS: ADMIT Internal Medicine; ATTEND Internal Medicine
DX: J84.9 Interstitial pulmonary disease, unspecified (principal); J43.9 Emphysema, unspecified; I48.19 Other persistent atrial fibrillation; I13.10 Hypertensive heart and chronic kidney disease without heart failure, with stage 1 through stage 4 chronic kidney disease, or unspecified chronic kidney disease; E11.22 Type 2 diabetes mellitus with diabetic chronic kidney disease; N18.30 Chronic kidney disease, stage 3 unspecified; E11.51 Type 2 diabetes mellitus with diabetic peripheral angiopathy without gangrene; I08.3 Combined rheumatic disorders of mitral, aortic and tricuspid valves; R62.7 Adult failure to thrive; Z86.16 Personal history of COVID-19; R11.0 Nausea; K21.9 Gastro-esophageal reflux disease without esophagitis; E78.5 Hyperlipidemia, unspecified; I25.2 Old myocardial infarction; G89.29 Other chronic pain; M54.9 Dorsalgia, unspecified; M65.9 Synovitis and tenosynovitis, unspecified; E86.0 Dehydration; R11.2 Nausea with vomiting, unspecified; D63.1 Anemia in chronic kidney disease; I25.10 Atherosclerotic heart disease of native coronary artery without angina pectoris; R53.81 Other malaise; E66.9 Obesity, unspecified; Z68.28 Body mass index [BMI] 28.0-28.9, adult; Z79.899 Other long term (current) drug therapy; Z79.01 Long term (current) use of anticoagulants; Z79.84 Long term (current) use of oral hypoglycemic drugs; Z88.5 Allergy status to narcotic agent; Z86.73 Personal history of transient ischemic attack (TIA), and cerebral infarction without residual deficits; Z95.1 Presence of aortocoronary bypass graft; Z95.5 Presence of coronary angioplasty implant and graft; Z87.891 Personal history of nicotine dependence; Z80.6 Family history of leukemia; Z82.5 Family history of asthma and other chronic lower respiratory diseases; Z82.49 Family history of ischemic heart disease and other diseases of the circulatory system; Z82.3 Family history of stroke; Z81.8 Family history of other mental and behavioral disorders
CPT/HCPCS: 96361 ×2; 96365; 96366 ×2; 99285; 36415; 93005; 80053; 82550; 83605; 83735; 84484; 85025; 81001; 87040; 87086; 71046 ×2; 74018; G0378 ×3; J2543

== ENCOUNTER 2021-12-13 21:32 | Inpatient (IN) | payer MEDICARE, OTHER ==
[2021-12-13] MEDS ORDERED: SODIUM CHLORIDE 0.9% 1,000 ML IV ONE (22:23)
[2021-12-13 22:38] LABS: Anisocytosis Slight; Basophils # (A) 0.1 k/uL (0-0.2); Basophils % (A) 1 %; Eosinophils # (A) 0.3 k/uL (0-0.7); Eosinophils % (A) 3 %; HCT 31.4 % (39.0-53.0); HGB 9.8 gm/dL (13.0-17.5); Hypochromasia Moderate; Lymphocytes # (A) 1.7 k/uL (1.0-4.8); Lymphocytes % (A) 18 %; MCHC 31.1 g/dL (31.0-37.0); MCV 96.4 fL (80.0-100.0); Macrocytosis Slight; Mean Platelet Volume 8.1; Monocytes # (A) 0.5 k/uL (0-1.0); Monocytes % (A) 5 %; Neutrophils # (A) 6.8 k/uL (1.3-7.7); Neutrophils % (A) 72 %; Platelet Count 213 k/uL (150-450); RBC 3.26 m/uL (4.30-5.90); RDW 17.7 % (11.5-15.5); WBC 9.5 k/uL (3.8-10.6)
[2021-12-13 22:47] LABS: Albumin 1.9 g/dL (3.5-5.0); Calcium 6.6 mg/dL (8.4-10.2); Potassium 2.8 mmol/L (3.5-5.1); Total Bilirubin 1.2 mg/dL (0.2-1.3); Total Protein 4.6 g/dL (6.3-8.2)
[2021-12-13 22:50] LABS: INR 2.5 (<1.2); Partial Thromboplastin Time 43.8 sec (22.0-30.0); Prothrombin Time 25.2 sec (9.0-12.0)
--- NOTE | 2021-12-13 23:05 | XR ---
EXAM: XR Chest, 1 View CLINICAL HISTORY: ITS.REASON XR Reason: altered mental status TECHNIQUE: Frontal view of the chest. COMPARISON: No previous study. FINDINGS: Lungs: Scarring/subsegmental atelectasis at the lung bases, left great and right. Pleural space: Small to moderate left pleural effusion. No pneumothorax. Heart: Post CABG changes. Cardiomegaly. Mediastinum: Unremarkable. Bones/joints: Sternotomy wires are noted in place and are intact. Osteopenia. Dextroscoliosis of the thoracic spine. IMPRESSION: 1. Cardiomegaly left pleural effusion suggestive of congestive heart failure. 2. Probable subsegmental atelectasis at the lung bases. 3. Post CABG changes.
--- NOTE | 2021-12-14 | ED ---
Altered Mental Status HPI - General Chief Complaint: Altered Mental Status Stated Complaint: confusion Time Seen by Provider: 12/13/21 21:41 Source: patient, EMS, old records reviewed Mode of arrival: EMS Limitations: altered mental status - History of Present Illness Initial Comments: This patient is a 70-year-old man sent from shelter to have evaluation of hypotension and altered mental status. When I interview the patient, he is denying complaints. He states that they did find his blood pressure was low. He states that it could've been fixed if he had been given a water bottle to drink. The patient denies any pain or dyspnea. He states that he would like to go back home. Note that his speech is somewhat difficult to follow as he does have dry mouth however when asked to repeat himself he does make his ideas clear. MD Complaint: altered mental status Onset/Timin -: days(s) Associated Symptoms: denies other symptoms - Related Data Home Medications Medication Instructions Recorded Confirmed Cyclobenzaprine [Flexeril] 10 mg PO HS@209902/10/15 12/13/21 allopurinoL [Zyloprim] 100 mg PO HS@209902/04/17 12/13/21 Acetaminophen [Tylenol] 650 mg PO Q4H PRN 11/02/21 12/13/21 Amiodarone [Cordarone] 200 mg PO DAILY@89911/02/21 12/13/21 Ammonium Lactate Lotion 1 applic TOPICAL BID 11/02/21 12/13/21 [Lac-Hydrin 12% Lotion] Apixaban [Eliquis] 5 mg PO BID@0900,1700 11/02/21 12/13/21 Ascorbic Acid [Vitamin C] 500 mg PO DAILY@59911/02/21 12/13/21 Escitalopram [Lexapro] 20 mg PO HS@209911/02/21 12/13/21 Linagliptin [Tradjenta] 5 mg PO DAILY@89911/02/21 12/13/21 Metoprolol Succinate [Toprol XL] 25 mg PO DAILY@89911/02/21 12/13/21 Sennosides/Docusate Sodium [Senna 1 tab PO BID@00,209911/02/21 12/13/21 Plus 8.6-50 mg Tablet] Zinc 50 mg PO DAILY@0600 11/02/21 12/13/21 Lactose-Reduced Food [Ensure Plus] 1 can PO BID@0900,2100 11/23/21 12/13/21 Artificial Tears-Hypromellose 2 drops BOTH EYES DIRECTED PRN 12/13/21 12/13/21 [Artificial Tear Drops] Artificial Tears-Hypromellose 2 drops BOTH EYES QID 12/13/21 12/13/21 [Artificial Tear Drops] Biotene Dry Mouth Liquid Mouthwash 15 mg PO Q6H 12/13/21 12/13/21 Mupirocin 2% Oint [Bactroban 2% 1 applic TOPICAL TID 12/13/21 12/13/21 Oint] Omeprazole 20 mg PO BID@0600,2100 12/13/21 12/13/21 Pilocarpine HCl [Salagen] 5 mg PO TID@0600,1300,2100 12/13/21 12/13/21 Thiamine HCl [Vitamin B-1] 100 mg PO DAILY@0600 12/13/21 12/13/21 Previous Rx's Medication Instructions Recorded Ipratropium-Albuterol Nebulize 3 ml INHALATION RT-Q8H PRN ml 11/24/21 [Duoneb 0.5 mg-3 mg/3 ml Soln] Fluconazole [Diflucan] 100 mg PO DAILY@0900 #7 tab 12/16/21 Allergies Allergy/AdvReac Type Severity Reaction Status Date / Time codeine Allergy Unknown Verified 12/13/21 22:41 Childhood morphine Allergy Unknown Verified 12/13/21 22:41 Childhood Review of Systems ROS Statement: Those systems with pertinent positive or pertinent negative responses have been documented in the HPI. ROS Other: All systems not noted in ROS Statement are negative. Constitutional: Denies: fever, chills, weakness Respiratory: Denies: cough, dyspnea Cardiovascular: Denies: chest pain, syncope Gastrointestinal: Denies: abdominal pain, vomiting, diarrhea Genitourinary: Denies: dysuria Musculoskeletal: Denies: back pain Skin: Denies: rash Neurological: Denies: headache Past Medical History Past Medical History: COPD, CVA/TIA, Diabetes Mellitus, GERD/Reflux, Hyperlipidemia, Hypertension, Myocardial Infarction ([place]), Renal Disease Additional Past Medical History / Comment(s): COPD, CVA 1997, carotid artery disease, diabetes mellitus, chronic back pain, tenosynovitis involving the wrists and hands bilaterally, chronic renal failure, mild aortic stenosis with a peak gradient across the aortic valve of 70 mmHg; three heart attacks, last in 2001 Last Myocardial Infarction Date:: 2001 History of Any Multi-Drug Resistant Organisms: None Reported Past Surgical History: Coronary Bypass/CABG, Heart Catheterization With Stent, Hernia Repair Additional Past Surgical History / Comment(s): March 1998 Cabg TRIPLE vessel by Dr. Ge. [facility] with 3 stents. 4th stent 2016 at [place], [facility] Past Anesthesia/Blood Transfusion Reactions: No Reported Reaction Date of Last Stent Placement:: March 19982015 Past Psychological History: No Psychological Hx Reported Smoking Status: Former smoker Past Alcohol Use History: None Reported Past Drug Use History: None Reported - Past Family History Father Family Medical History: Cancer Additional Family Medical History / Comment(s): Leukemia Father of leukemia at age 32yrs Mother Family Medical History: COPD Additional Family Medical History / Comment(s): Mother was 76 when she . She had mental illness. Sister(s) Family Medical History: Coronary Artery Disease (CAD), CVA/TIA Brother(s) Family Medical History: Coronary Artery Disease (CAD) General Exam Limitations: altered mental status General appearance: alert, in no apparent distress Head exam: Present: atraumatic, normocephalic Eye exam: Present: normal appearance. Absent: scleral icterus, conjunctival injection ENT exam: Present: mucous membranes dry Neck exam: Present: normal inspection, full ROM Respiratory exam: Present: normal lung sounds bilaterally. Absent: respiratory distress, wheezes, rales, rhonchi, stridor, accessory muscle use Cardiovascular Exam: Present: regular rate, normal rhythm, normal heart sounds. Absent: systolic murmur, diastolic murmur, rubs, gallop GI/Abdominal exam: Present: soft. Absent: distended, tenderness, guarding, rebound, rigid, mass Extremities exam: Present: normal inspection, normal capillary refill. Absent: pedal edema, calf tenderness Neurological exam: Present: alert, oriented X3. Absent: motor sensory deficit Skin exam: Present: warm, dry, intact, normal color. Absent: rash Course Vital Signs 12/13/21 12/13/21 12/13/21 21:49 22:03 23:01 Temperature 97.9 F Pulse Rate 66 65 64 Respiratory 16 16 16 Rate Blood Pressure 95/45 96/50 94/52 O2 Sat by Pulse 93 L 97 98 Oximetry 12/14/21 12/14/21 12/14/21 00:30 02:14 03:24 Temperature Pulse Rate 67 66 69 Respiratory 16 20 15 Rate Blood Pressure 101/59 106/58 105/60 O2 Sat by Pulse 93 L 97 98 Oximetry 12/14/21 05:00 Temperature Pulse Rate 74 Respiratory 20 Rate Blood Pressure 101/59 O2 Sat by Pulse 96 Oximetry Medical Decision Making - Lab Data Result diagrams: 12/16/21 06:59 12/16/21 06:59 Lab Results 12/13/21 12/13/21 12/13/21 Range/Units 22:30 22:30 22:30 WBC 9.5 (3.8-10.6) k/uL RBC 3.26 L (4.30-5.90) m/uL Hgb 9.8 L (13.0-17.5) gm/dL Hct 31.4 L (39.0-53.0) % MCV 96.4 (80.0-100.0) fL MCH 30.0 (25.0-35.0) pg MCHC 31.1 (31.0-37.0) g/dL RDW 17.7 H (11.5-15.5) % Plt Count 213 (150-450) k/uL MPV 8.1 Neutrophils % 72 % Lymphocytes % 18 % Monocytes % 5 % Eosinophils % 3 % Basophils % 1 % Neutrophils # 6.8 (1.3-7.7) k/uL Lymphocytes # 1.7 (1.0-4.8) k/uL Monocytes # 0.5 (0-1.0) k/uL Eosinophils # 0.3 (0-0.7) k/uL Basophils # 0.1 (0-0.2) k/uL Hypochromasia Moderate Anisocytosis Slight Macrocytosis Slight PT 25.2 H (9.0-12.0) sec INR 2.5 H (<1.2) APTT 43.8 H (22.0-30.0) sec Sodium (137-145) mmol/L Potassium (3.5-5.1) mmol/L Chloride (98-107) mmol/L Carbon Dioxide (22-30) mmol/L Anion Gap mmol/L BUN (9-20) mg/dL Creatinine (0.66-1.25) mg/dL Est GFR (CKD-EPI)AfAm (>60 ml/min/1.73 sqM) Est GFR (CKD-EPI)NonAf (>60 ml/min/1.73 sqM) Glucose (74-99) mg/dL Lactic Ac Sepsis Rflx Plasma Lactic Acid Paco (0.7-2.0) mmol/L Calcium (8.4-10.2) mg/dL Total Bilirubin (0.2-1.3) mg/dL AST (17-59) U/L ALT (4-49) U/L Alkaline Phosphatase (38-126) U/L Troponin I (0.000-0.034) ng/mL Total Protein (6.3-8.2) g/dL Albumin (3.5-5.0) g/dL Urine Color Yellow Urine Appearance Clear (Clear) Urine pH 5.5 (5.0-8.0) Ur Specific [place] 1.013 (1.001-1.035) Urine Protein 1+ H (Negative) Urine Glucose (UA) Negative (Negative) Urine Ketones Negative (Negative) Urine Blood Moderate H (Negative) Urine Nitrite Negative (Negative) Urine Bilirubin Negative (Negative) Urine Urobilinogen <2.0 (<2.0) mg/dL Ur Leukocyte Esterase Moderate H (Negative) Urine RBC 15 H (0-5) /hpf Urine WBC 27 H (0-5) /hpf Urine WBC Clumps Rare H (None) /hpf Ur Squamous Epith Cells 1 (0-4) /hpf Urine Bacteria Rare H (None) /hpf Hyaline Casts 33 H (0-2) /lpf Urine Mucus Few H (None) /hpf 12/13/21 12/13/21 12/13/21 Range/Units 22:30 22:30 22:30 WBC (3.8-10.6) k/uL RBC (4.30-5.90) m/uL Hgb (13.0-17.5) gm/dL Hct (39.0-53.0) % MCV (80.0-100.0) fL MCH (25.0-35.0) pg MCHC (31.0-37.0) g/dL RDW (11.5-15.5) % Plt Count (150-450) k/uL MPV Neutrophils % % Lymphocytes % % Monocytes % % Eosinophils % % Basophils % % Neutrophils # (1.3-7.7) k/uL Lymphocytes # (1.0-4.8) k/uL Monocytes # (0-1.0) k/uL Eosinophils # (0-0.7) k/uL Basophils # (0-0.2) k/uL Hypochromasia Anisocytosis Macrocytosis PT (9.0-12.0) sec INR (<1.2) APTT (22.0-30.0) sec Sodium 137 (137-145) mmol/L Potassium 2.8 L (3.5-5.1) mmol/L Chloride 105 (98-107) mmol/L Carbon Dioxide 24 (22-30) mmol/L Anion Gap 8 mmol/L BUN 8 L (9-20) mg/dL Creatinine 1.25 (0.66-1.25) mg/dL Est GFR (CKD-EPI)AfAm 68 (>60 ml/min/1.73 sqM) Est GFR (CKD-EPI)NonAf 59 (>60 ml/min/1.73 sqM) Glucose 93 (74-99) mg/dL Lactic Ac Sepsis Rflx Plasma Lactic Acid Paco 2.1 H* (0.7-2.0) mmol/L Calcium 6.6 L (8.4-10.2) mg/dL Total Bilirubin 1.2 (0.2-1.3) mg/dL AST 95 H (17-59) U/L ALT 18 (4-49) U/L Alkaline Phosphatase 333 H (38-126) U/L Troponin I 0.044 H* (0.000-0.034) ng/mL Total Protein 4.6 L (6.3-8.2) g/dL Albumin 1.9 L (3.5-5.0) g/dL Urine Color Urine Appearance (Clear) Urine pH (5.0-8.0) Ur Specific [place] (1.001-1.035) Urine Protein (Negative) Urine Glucose (UA) (Negative) Urine Ketones (Negative) Urine Blood (Negative) Urine Nitrite (Negative) Urine Bilirubin (Negative) Urine Urobilinogen (<2.0) mg/dL Ur Leukocyte Esterase (Negative) Urine RBC (0-5) /hpf Urine WBC (0-5) /hpf Urine WBC Clumps (None) /hpf Ur Squamous Epith Cells (0-4) /hpf Urine Bacteria (None) /hpf Hyaline Casts (0-2) /lpf Urine Mucus (None) /hpf 12/13/21 12/14/21 Range/Units 23:02 01:30 WBC (3.8-10.6) k/uL RBC (4.30-5.90) m/uL Hgb (13.0-17.5) gm/dL Hct (39.0-53.0) % MCV (80.0-100.0) fL MCH (25.0-35.0) pg MCHC (31.0-37.0) g/dL RDW (11.5-15.5) % Plt Count (150-450) k/uL MPV Neutrophils % % Lymphocytes % % Monocytes % % Eosinophils % % Basophils % % Neutrophils # (1.3-7.7) k/uL Lymphocytes # (1.0-4.8) k/uL Monocytes # (0-1.0) k/uL Eosinophils # (0-0.7) k/uL Basophils # (0-0.2) k/uL Hypochromasia Anisocytosis Macrocytosis PT (9.0-12.0) sec INR (<1.2) APTT (22.0-30.0) sec Sodium (137-145) mmol/L Potassium (3.5-5.1) mmol/L Chloride (98-107) mmol/L Carbon Dioxide (22-30) mmol/L Anion Gap mmol/L BUN (9-20) mg/dL Creatinine (0.66-1.25) mg/dL Est GFR (CKD-EPI)AfAm (>60 ml/min/1.73 sqM) Est GFR (CKD-EPI)NonAf (>60 ml/min/1.73 sqM) Glucose (74-99) mg/dL Lactic Ac Sepsis Rflx Y Plasma Lactic Acid Paco 1.9 (0.7-2.0) mmol/L Calcium (8.4-10.2) mg/dL Total Bilirubin (0.2-1.3) mg/dL AST (17-59) U/L ALT (4-49) U/L Alkaline Phosphatase (38-126) U/L Troponin I (0.000-0.034) ng/mL Total Protein (6.3-8.2) g/dL Albumin (3.5-5.0) g/dL Urine Color Urine Appearance (Clear) Urine pH (5.0-8.0) Ur Specific [place] (1.001-1.035) Urine Protein (Negative) Urine Glucose (UA) (Negative) Urine Ketones (Negative) Urine Blood (Negative) Urine Nitrite (Negative) Urine Bilirubin (Negative) Urine Urobilinogen (<2.0) mg/dL Ur Leukocyte Esterase (Negative) Urine RBC (0-5) /hpf Urine WBC (0-5) /hpf Urine WBC Clumps (None) /hpf Ur Squamous Epith Cells (0-4) /hpf Urine Bacteria (None) /hpf Hyaline Casts (0-2) /lpf Urine Mucus (None) /hpf - EKG Data -: EKG Interpreted by Ri EKG shows normal: sinus rhythm, axis (Borderline right axis), intervals (Prolonged QRS duration at 132 ms. AR interval 171 ms, QTC 463 ms.), QRS complexes (Nonspecific intraventricular conduction delay. Probable old inferior infarct.), ST-T waves (Normal) Disposition Clinical Impression: UTI (urinary tract infection), Altered mental status, Elevated troponin I level Disposition: ADMITTED IP TO THIS HOSP Condition: Fair Is patient prescribed a controlled substance at d/c from ED?: No
[2021-12-14 00:16] LABS: Appearance,Urine Clear (Clear); Bacteria,Urine Rare /hpf; Bilirubin,Urine Negative (Negative); Blood,Urine Moderate (Negative); Color,Urine Yellow; Glucose,Urine (UA) Negative (Negative); Hyaline Casts,Urine 33 /lpf (0-2); Ketones,Urine Negative (Negative); Leukocyte Esterase,Urine Moderate (Negative); Mucus,Urine Few /hpf; Nitrite,Urine Negative (Negative); PH, Urine 5.5 (5.0-8.0); Protein,Urine 1+ (Negative); RBC,Urine 15 /hpf (0-5); Specific Gravity,Urine 1.013 (1.001-1.035); Squamous Epithelial Cell,Urine 1 /hpf (0-4); Urobilinogen,Urine <2.0 mg/dL (<2.0); WBC,Urine 27 /hpf (0-5)
[2021-12-14] MEDS ORDERED: SODIUM CHLORIDE 0.9% 1,000 ML IV STA (00:44)
[2021-12-14] MEDS ORDERED: SODIUM CHLORIDE 0.9% 1,000 ML IV ONE (00:44)
[2021-12-14] MEDS ORDERED: ACETAMINOPHEN TAB 325 MG TAB PO PRN (04:31)
[2021-12-14] MEDS ORDERED: NALOXONE 0.4 MG/ML 1 ML VIAL IV PRN (04:31)
[2021-12-14] MEDS ORDERED: POTASSIUM CHLORIDE ER 20 MEQ TAB.ER PO STA (05:16)
--- NOTE | 2021-12-14 05:19 | P.HPIM ---
History of Present Illness H&P Date: 12/14/21 Patient is a 70-year-old male with a PMH of type II DM, coronary artery disease status post stents, COPD, and A. fib on Eliquis who was sent from half-way facility for confusion and hypotension. The patient was confused at time of interview and was a poor historian. The patient complained of having a poor oral intake and being dehydrated. He denied any additional complaints. He denied experiencing chest discomfort, shortness of breath, fever, chills, cough, nausea, vomiting, abdominal pain, dysuria, diarrhea. Chest x-ray in the emergency room revealed cardiomegaly with subsegmental bibasilar atelectasis with EKG showing sinus rhythm at 67 bpm with left axis deviation and diffuse T- wave flattening with intraventricular conduction delay. After evaluation was medical for INR 2.5, lactic acid 2.1, troponin I 0.044, and a UA consistent with UTI. Review of systems: Pertinent positives and negatives as discussed in HPI, a complete review of systems was performed and all other systems are negative. Physical examination: General: non toxic, no distress, appears at stated age, overweight Derm: no unusual rashes/lesions no unusual ecchymoses, warm, dry Head: atraumatic, normocephalic, symmetric Eyes: EOMI, no lid lag, anicteric sclera, pupils equal round reactive to light ENT: Nose and ears atraumatic, no thrush, no pharyngeal erythema Neck: No thyromegaly, no cervical lymphadenopathy, trachea midline, supple Mouth: no lip lesion, mucus membranes moist Cardiovascular: S1S2 reg, no murmur, positive posterior tibial pulse bilateral, no edema, capillary refill less than 2 seconds Lungs: CTA bilateral, no rhonchi, no rales , no accessory muscle use Abdominal: soft, nontender to palpation, no guarding, no appreciable organomegaly, normal bowel sounds Ext: no gross muscle atrophy, muscle strength 4 out of 5 in all 4 extremities grossly, no contractures, Neuro: CN II-XI grossly intact, light touch intact all 4 extremities, finger to nose within normal limits, Psych: Awake, confused, oriented only to person and place Assessment/plan UTI -Continue ceftriaxone -IV fluids Toxic metabolic encephalopathy -Suspected secondary to above Lactic acidosis -Monitor for resolution Elevated troponin, likely due to ongoing stressor -Trend for now -Cardiac monitoring -Patient denied chest discomfort or shortness of breath Elevated INR, unclear etiology -Obtain right upper quadrant ultrasound -Monitor for now Hypokalemia -Replace and monitor Chronic conditions: Type 2 DM, CAD, COPD, A. fib -Continue with home meds DVT prophylaxis -Eliquis The patient is admitted with an anticipated greater than 2 midnight stay for evaluation of UTI CODE STATUS: Full Code Discussed with: Patient Anticipated discharge date: 12/[address]: [facility] Past Medical History Past Medical History: COPD, CVA/TIA, Diabetes Mellitus, GERD/Reflux, Hyperlipidemia, Hypertension, Myocardial Infarction ([place]), Renal Disease Additional Past Medical History / Comment(s): COPD, CVA 1997, carotid artery disease, diabetes mellitus, chronic back pain, tenosynovitis involving the wrists and hands bilaterally, chronic renal failure, mild aortic stenosis with a peak gradient across the aortic valve of 70 mmHg; three heart attacks, last in 2001 Last Myocardial Infarction Date:: 2001 History of Any Multi-Drug Resistant Organisms: None Reported Past Surgical History: Coronary Bypass/CABG, Heart Catheterization With Stent, Hernia Repair Additional Past Surgical History / Comment(s): March 1998 Cabg TRIPLE vessel by Dr. Ge. [facility] with 3 stents. 4th stent 2015 at [place], [facility] Past Anesthesia/Blood Transfusion Reactions: No Reported Reaction Date of Last Stent Placement:: March 19982015 Past Psychological History: No Psychological Hx Reported Smoking Status: Former smoker Past Alcohol Use History: None Reported Past Drug Use History: None Reported - Past Family History Father Family Medical History: Cancer Additional Family Medical History / Comment(s): Leukemia Father of leukemia at age 32yrs Mother Family Medical History: COPD Additional Family Medical History / Comment(s): Mother was 76 when she . She had mental illness. Sister(s) Family Medical History: Coronary Artery Disease (CAD), CVA/TIA Brother(s) Family Medical History: Coronary Artery Disease (CAD) Medications and Allergies Home Medications Medication Instructions Recorded Confirmed Type Atorvastatin [Lipitor] 80 mg PO HS@2100 12/29/14 12/13/21 History Cyclobenzaprine [Flexeril] 10 mg PO HS@2100 02/10/15 12/13/21 History allopurinoL [Zyloprim] 100 mg PO HS@209902/04/17 12/13/21 History Acetaminophen [Tylenol] 650 mg PO Q4H PRN 11/02/21 12/13/21 History Amiodarone [Cordarone] 200 mg PO DAILY@0900 11/02/21 12/13/21 History Ammonium Lactate Lotion 1 applic TOPICAL BID 11/02/21 12/13/21 History [Lac-Hydrin 12% Lotion] Apixaban [Eliquis] 5 mg PO BID@0900,1700 11/02/21 12/13/21 History Ascorbic Acid [Vitamin C] 500 mg PO DAILY@0600 11/02/21 12/13/21 History Escitalopram [Lexapro] 20 mg PO HS@209911/02/21 12/13/21 History Linagliptin [Tradjenta] 5 mg PO DAILY@0900 11/02/21 12/13/21 History Metoprolol Succinate [Toprol XL] 25 mg PO DAILY@0900 11/02/21 12/13/21 History Sennosides/Docusate Sodium [Senna 1 tab PO BID@0600,209911/02/21 12/13/21 History Plus 8.6-50 mg Tablet] Zinc 50 mg PO DAILY@0600 11/02/21 12/13/21 History Lactose-Reduced Food [Ensure Plus] 1 can PO BID@0900,2100 11/23/21 12/13/21 History Ipratropium-Albuterol Nebulize 3 ml INHALATION RT-Q8H PRN ml 11/24/21 12/13/21 Rx [Duoneb 0.5 mg-3 mg/3 ml Soln] Artificial Tears-Hypromellose 2 drops BOTH EYES DIRECTED PRN 12/13/21 12/13/21 History [Artificial Tear Drops] Artificial Tears-Hypromellose 2 drops BOTH EYES QID 12/13/21 12/13/21 History [Artificial Tear Drops] Biotene Dry Mouth Liquid Mouthwash 15 mg PO Q6H 12/13/21 12/13/21 History Cefuroxime [Ceftin] 250 mg PO BID@0900,2100 12/13/21 12/13/21 History Fluconazole [Diflucan] 100 mg PO DAILY@0900 12/13/21 12/13/21 History Mupirocin 2% Oint [Bactroban 2% 1 applic TOPICAL TID 12/13/21 12/13/21 History Oint] Omeprazole 20 mg PO BID@0600,2100 12/13/21 12/13/21 History Pilocarpine HCl [Salagen] 5 mg PO TID@0600,1300,2100 12/13/21 12/13/21 History Thiamine HCl [Vitamin B-1] 100 mg PO DAILY@0600 12/13/21 12/13/21 History Allergies Allergy/AdvReac Type Severity Reaction Status Date / Time codeine Allergy Unknown Verified 12/13/21 22:41 Childhood morphine Allergy Unknown Verified 12/13/21 22:41 Childhood Physical Exam Vitals: Vital Signs Temp Pulse Resp BP Pulse Ox 12/14/21 03:24 69 15 105/60 98 12/14/21 02:14 66 20 106/58 97 12/14/21 00:30 67 16 101/59 93 L 12/13/21 23:01 64 16 94/52 98 12/13/21 22:03 65 16 96/50 97 12/13/21 21:49 97.9 F 66 16 95/45 93 L Intake and Output 12/13/21 12/13/21 12/14/21 14:59 22:59 06:59 Other: Weight 97.522 kg Results CBC & Chem 7: 12/13/21 22:30 12/13/21 22:30 Labs: Abnormal Lab Results - Last 24 Hours (Table) 12/13/21 12/13/21 12/13/21 Range/Units 22:30 22:30 22:30 RBC 3.26 L (4.30-5.90) m/uL Hgb 9.8 L (13.0-17.5) gm/dL Hct 31.4 L (39.0-53.0) % RDW 17.7 H (11.5-15.5) % PT 25.2 H (9.0-12.0) sec INR 2.5 H (<1.2) APTT 43.8 H (22.0-30.0) sec Potassium (3.5-5.1) mmol/L BUN (9-20) mg/dL Plasma Lactic Acid Paco (0.7-2.0) mmol/L Calcium (8.4-10.2) mg/dL AST (17-59) U/L Alkaline Phosphatase (38-126) U/L Troponin I (0.000-0.034) ng/mL Total Protein (6.3-8.2) g/dL Albumin (3.5-5.0) g/dL Urine Protein 1+ H (Negative) Urine Blood Moderate H (Negative) Ur Leukocyte Esterase Moderate H (Negative) Urine RBC 15 H (0-5) /hpf Urine WBC 27 H (0-5) /hpf Urine WBC Clumps Rare H (None) /hpf Urine Bacteria Rare H (None) /hpf Hyaline Casts 33 H (0-2) /lpf Urine Mucus Few H (None) /hpf 12/13/21 12/13/21 12/13/21 Range/Units 22:30 22:30 22:30 RBC (4.30-5.90) m/uL Hgb (13.0-17.5) gm/dL Hct (39.0-53.0) % RDW (11.5-15.5) % PT (9.0-12.0) sec INR (<1.2) APTT (22.0-30.0) sec Potassium 2.8 L (3.5-5.1) mmol/L BUN 8 L (9-20) mg/dL Plasma Lactic Acid Paco 2.1 H* (0.7-2.0) mmol/L Calcium 6.6 L (8.4-10.2) mg/dL AST 95 H (17-59) U/L Alkaline Phosphatase 333 H (38-126) U/L Troponin I 0.044 H* (0.000-0.034) ng/mL Total Protein 4.6 L (6.3-8.2) g/dL Albumin 1.9 L (3.5-5.0) g/dL Urine Protein (Negative) Urine Blood (Negative) Ur Leukocyte Esterase (Negative) Urine RBC (0-5) /hpf Urine WBC (0-5) /hpf Urine WBC Clumps (None) /hpf Urine Bacteria (None) /hpf Hyaline Casts (0-2) /lpf Urine Mucus (None) /hpf
[2021-12-14] MEDS: SODIUM CHLORIDE 0.9% 1,000 ML IV SCH ×2 (05:45→20:45)
[2021-12-14 06:41] LABS: Albumin 1.7 g/dL (3.5-5.0); Potassium 2.8 mmol/L (3.5-5.1); Total Bilirubin 1.1 mg/dL (0.2-1.3); Total Protein 4.5 g/dL (6.3-8.2)
[2021-12-14 06:47] LABS: INR 2.4 (<1.2); Prothrombin Time 24.1 sec (9.0-12.0)
[2021-12-14 06:50] LABS: Calcium 6.4 mg/dL (8.4-10.2)
[2021-12-14 06:54] LABS: Glucose,Whole Blood 81 mg/dL (75-99)
--- NOTE | 2021-12-14 09:26 | US ---
EXAMINATION TYPE: US abdomen limited DATE OF EXAM: 12/14/2021 COMPARISON: CT CLINICAL HISTORY: Liver/RUQ US. Elevated LFT's EXAM MEASUREMENTS: Liver Length: 18.4 cm Gallbladder Wall: 0.3 cm CBD: 0.7 cm Right Kidney: 10.1 x 5.4 x 6.3 cm Pancreas: wnl, tail obscured by overlying bowel gas Liver: Enlarged, coarse echotexture, heterogeneous, difficult to penetrate Gallbladder: Distended with possible "gravel" stones, pt unable to roll in LLD position Evidence for sonographic Bonilla's sign: No CBD: wnl Right Kidney: wnl IMPRESSION: 1. Hepatomegaly with nonspecific pattern which can be seen with diffuse hepatocellular disease, hepat itis or hepatic steatosis. 2. Gallbladder hydrops with possible tiny gallstones. Common bile duct measures at the upper limits o f normal for the patient's age. Distal CBD stone not excluded.
[2021-12-14] MEDS: SENNOSIDES-DOCUSATE SODIUM 1 EACH TAB PO SCH ×2 (10:43→20:38)
[2021-12-14] MEDS: AMIODARONE 200 MG TAB PO SCH (10:43)
[2021-12-14] MEDS: ASCORBIC ACID 500 MG TAB PO SCH (10:43)
[2021-12-14] MEDS: APIXABAN 5 MG TAB PO SCH ×2 (10:43→20:38)
[2021-12-14] MEDS: PILOCARPINE 5 MG TAB PO SCH ×3 (10:43→20:39)
[2021-12-14] MEDS: ARTIFICIAL TEARS-HYPROMELLOSE DROPS 15 ML BTL BOTH EYES SCH ×4 (10:44→20:39)
[2021-12-14] MEDS: METOPROLOL SUCCINATE (ER) 25 MG TAB.ER.24H PO SCH (10:44)
[2021-12-14] MEDS: POTASSIUM CHLORIDE ER 20 MEQ TAB.ER PO SCH ×2 (10:46→13:29)
[2021-12-14 11:41] LABS: Glucose,Whole Blood 82 mg/dL (75-99)
[2021-12-14 16:26] LABS: Glucose,Whole Blood 80 mg/dL (75-99)
[2021-12-14 20:04] LABS: Glucose,Whole Blood 80 mg/dL (75-99)
[2021-12-14] MEDS: allopurinoL 100 MG TAB PO SCH (20:38)
[2021-12-14] MEDS: ESCITALOPRAM 20 MG TAB PO SCH (20:38)
[2021-12-14] MEDS: CYCLOBENZAPRINE 10 MG TAB PO SCH (20:38)
[2021-12-14] MEDS ORDERED: ATORVASTATIN 80 MG TAB PO SCH (21:00)
[2021-12-15] MEDS: SODIUM CHLORIDE 0.9% 1,000 ML IV SCH ×2 (04:44→12:00)
[2021-12-15 06:03] LABS: Glucose,Whole Blood 75 mg/dL (75-99)
[2021-12-15 08:39] LABS: INR 2.4 (<1.2); Prothrombin Time 24.2 sec (9.0-12.0)
[2021-12-15 08:41] LABS: Anisocytosis Slight; Basophils # (A) 0.1 k/uL (0-0.2); Basophils % (A) 1 %; Eosinophils # (A) 0.2 k/uL (0-0.7); Eosinophils % (A) 2 %; HCT 31.6 % (39.0-53.0); HGB 9.6 gm/dL (13.0-17.5); Hypochromasia Marked; Lymphocytes # (A) 1.5 k/uL (1.0-4.8); Lymphocytes % (A) 19 %; MCH 29.7 pg (25.0-35.0); MCHC 30.4 g/dL (31.0-37.0); MCV 97.8 fL (80.0-100.0); Macrocytosis Slight; Mean Platelet Volume 7.6; Monocytes # (A) 0.5 k/uL (0-1.0); Monocytes % (A) 7 %; Neutrophils # (A) 5.4 k/uL (1.3-7.7); Neutrophils % (A) 68 %; Platelet Count 200 k/uL (150-450); RBC 3.23 m/uL (4.30-5.90); RDW 18.1 % (11.5-15.5)
[2021-12-15 09:07] LABS: Albumin 1.7 g/dL (3.5-5.0); Potassium 3.9 mmol/L (3.5-5.1); Total Bilirubin 1.3 mg/dL (0.2-1.3); Total Protein 4.6 g/dL (6.3-8.2)
[2021-12-15 09:11] LABS: Calcium 6.4 mg/dL (8.4-10.2)
[2021-12-15] MEDS ORDERED: LORazepam 2 MG/ML INJ IV STA (09:48)
[2021-12-15] MEDS: CALCIUM GLUCONATE IN NACL 1 GM in SALINE 1 100ML.BAG IVPB SCH ×2 (11:17→12:00)
[2021-12-15 11:53] LABS: Glucose,Whole Blood 77 mg/dL (75-99)
--- NOTE | 2021-12-15 14:26 | P.PN ---
Subjective Progress Note Date: 12/15/21 Patient is a 70-year-old male with a PMH of type II DM, coronary artery disease status post stents, COPD, and A. fib on Eliquis who was sent from halfway facility for confusion and hypotension. Patient was found to have INR 2.5, lactic acid 2.1, troponin 0.044 and UA consistent with UTI. Patient started on IV Rocephin. Patient also found to have elevated liver enzymes. Patient had liver ultrasound done that showed hepatomegaly with nonspecific pattern that can be seen in fat or cellular disease, hepatitis or hepatic steatosis and bile duct measured at the upper limit of normal and distal common bile duct stone cannot be excluded. Today patient is denying any hallucinations and is AAO 3. Patient states that he has a difficult time getting from a sitting to standing position. Patient also complaining of some right upper quadrant discomfort Daughter was at bedside she states that patient does have a history of sundowning while he is in the hospital. Objective - Vital Signs Vital signs: Vital Signs Temp 97.6 F 12/15/21 11:27 Pulse 65 12/15/21 11:27 Resp 14 12/15/21 11:27 BP 96/56 12/15/21 11:27 Pulse Ox 96 12/15/21 11:27 Intake & Output 12/14/21 12/15/21 12/15/21 18:59 06:59 18:59 Intake Total 960 Output Total 150 Balance 810 Weight 100.2 kg Intake: Oral 960 Output: Urine 150 Other: Voiding Method Diaper Bedpan Urinal Diaper Diaper # Voids 1 2 1 # Bowel Movements 1 - Exam General examination - Alert and Oriented 3 in NAD, appears chronically debilitated Heart - + S1S2 no murmurs Lungs - Clear to auscultation Abdomen soft NT ND +ve BS Extremities - No edema [employer] - Moving all 4 extremities spontaneously Psych - Calm and cooperative, mildly confused - Labs CBC & Chem 7: 12/15/21 07:47 12/15/21 07:47 Labs: Abnormal Lab Results - Last 24 Hours (Table) 12/15/21 12/15/21 12/15/21 Range/Units 07:47 07:47 07:47 RBC 3.23 L (4.30-5.90) m/uL Hgb 9.6 L (13.0-17.5) gm/dL Hct 31.6 L (39.0-53.0) % MCHC 30.4 L (31.0-37.0) g/dL RDW 18.1 H (11.5-15.5) % PT 24.2 H (9.0-12.0) sec INR 2.4 H (<1.2) Chloride 110 H (98-107) mmol/L Calcium 6.4 L* (8.4-10.2) mg/dL AST 128 H (17-59) U/L Alkaline Phosphatase 360 H (38-126) U/L Total Protein 4.6 L (6.3-8.2) g/dL Albumin 1.7 L (3.5-5.0) g/dL Microbiology - Last 24 Hours (Table) 12/13/21 22:30 Urine Culture - Preliminary Urine,Voided Yeast species 12/14/21 01:14 Blood Culture - Preliminary Blood No Growth after 24 hours 12/14/21 01:30 Blood Culture - Preliminary Blood No Growth after 24 hours Assessment and Plan Assessment: UTI -Resume IV Rocephin and follow-up urine culture Toxo metabolic encephalopathy -Secondary to the above. -Improving Elevated liver enzyme and INR likely due to hepatocellular disease -Follow up outpatient with gastroenterology -Since it appears significantly elevated and patient does have some right upper quadrant discomfort we'll check a MRCP -INR level is stable Lactic acidosis -Lactic acid has normalized Elevated troponin likely due to demand ischemia -Troponins are flat and patient denies any chest pain so unlikely ACS Hypokalemia -Replete as needed Chronic conditions: Type 2 DM, CAD, COPD, A. fib -Continue with home meds DVT prophylaxis -Eliquis The patient is admitted with an anticipated greater than 2 midnight stay for evaluation of UTI CODE STATUS: Full Code Discussed with: Patient Anticipated discharge date: 12/[address]: Patient has no more days for rehab left at [facility] so family plans to take him home with home PT OT
[2021-12-15] MEDS: SENNOSIDES-DOCUSATE SODIUM 1 EACH TAB PO SCH ×2 (15:24→19:41)
[2021-12-15] MEDS: ASCORBIC ACID 500 MG TAB PO SCH (15:24)
[2021-12-15] MEDS: AMIODARONE 200 MG TAB PO SCH (15:24)
[2021-12-15] MEDS: PILOCARPINE 5 MG TAB PO SCH ×3 (15:24→19:41)
[2021-12-15] MEDS: METOPROLOL SUCCINATE (ER) 25 MG TAB.ER.24H PO SCH (15:24)
[2021-12-15] MEDS: APIXABAN 5 MG TAB PO SCH ×2 (15:25→19:41)
[2021-12-15] MEDS: ARTIFICIAL TEARS-HYPROMELLOSE DROPS 15 ML BTL BOTH EYES SCH ×4 (15:26→19:41)
[2021-12-15 16:21] LABS: Glucose,Whole Blood 81 mg/dL (75-99)
--- NOTE | 2021-12-15 17:41 | MR ---
MR MRCP INDICATION: Patient age:Male; 70 years old; Reason for study: r/o bile duct obstruction, elevated ALP; COMPARISON: Abdominal ultrasound 12/14/2021. TECHNIQUE: Multi planar, T2-weighted imaging with and without fat saturation and chemical shift imag ing was performed of the abdomen. Then, heavily T2 weighted imaging (half-Fourier acquisition single- shot turbo spin-echo) was utilized in order to study the biliary system. Maximum intensity projectio n images were reconstructed from the original data of the biliary tree. No Gadolinium given. FINDINGS: There is susceptibility artifact in the expected location of the third portion of duodenum. MRCP: The intrahepatic ducts have a normal appearance. The common bile duct at the level of the parson creatic head measures 4 mm in size. There is a slow taper best appreciated on page 1/8 of the maximum Intensity projection images and coronal imaging image 19 of 40. This could relate to slice selection . The common hepatic duct measures 5 mm in size. The pancreatic duct is normal. The gallbladder appears distended with layering irregularities in the gallbladder fundus which may re present gallstones. Abdomen: The spleen, adrenal glands and pancreas have a normal noncontrast appearance. Bilateral high T2/low T1 subcentimeter renal cysts. Trace amount of ascites is seen within the abdomen most pronoun he on the liver. There is signal dropout of the liver on out of phase chemical shift imaging. Lower chest: Partially visualized sternotomy wires are present. Trace bilateral pleural effusions are present. IMPRESSION: 1. Limited exam secondary to patient body habitus and technique. No definite evidence for choledocho lithiasis. No evidence of ductal dilatation. 2. Gradual tapering of the common bile duct best appreciated on maximum intensity projection images unclear whether this is secondary to poor image quality. Consider ERCP with direct visualization of t he common bile duct if there remains concern for biliary neoplasm. Suspected tiny gallstones in the g allbladder lumen. 3. Hepatic steatosis. 4. Trace bilateral pleural effusions. 5. Trace ascites.
[2021-12-15] MEDS: CYCLOBENZAPRINE 10 MG TAB PO SCH (19:41)
[2021-12-15] MEDS: ESCITALOPRAM 20 MG TAB PO SCH (19:41)
[2021-12-15] MEDS: allopurinoL 100 MG TAB PO SCH (19:41)
[2021-12-15 20:47] LABS: Glucose,Whole Blood 126 mg/dL (75-99)
[2021-12-16] MEDS: SODIUM CHLORIDE 0.9% 1,000 ML IV SCH ×2 (03:12→12:07)
[2021-12-16 06:02] LABS: Glucose,Whole Blood 85 mg/dL (75-99)
[2021-12-16 07:40] LABS: Albumin 1.6 g/dL (3.5-5.0); Anisocytosis Slight; Calcium 6.6 mg/dL (8.4-10.2); HCT 29.9 % (39.0-53.0); HGB 9.2 gm/dL (13.0-17.5); Hypochromasia Marked; MCH 29.7 pg (25.0-35.0); MCHC 30.6 g/dL (31.0-37.0); Macrocytosis Slight; Mean Platelet Volume 7.7; Platelet Count 187 k/uL (150-450); Potassium 3.7 mmol/L (3.5-5.1); RBC 3.09 m/uL (4.30-5.90); RDW 18.3 % (11.5-15.5); Total Bilirubin 1.2 mg/dL (0.2-1.3); Total Protein 4.3 g/dL (6.3-8.2); WBC 6.9 k/uL (3.8-10.6)
[2021-12-16 08:41] VITALS: RESP 16; TEMP 97.6
[2021-12-16] MEDS: AMIODARONE 200 MG TAB PO SCH (08:47)
[2021-12-16] MEDS: ASCORBIC ACID 500 MG TAB PO SCH (08:47)
[2021-12-16] MEDS: SENNOSIDES-DOCUSATE SODIUM 1 EACH TAB PO SCH (08:47)
[2021-12-16] MEDS: PILOCARPINE 5 MG TAB PO SCH (08:47)
[2021-12-16] MEDS: APIXABAN 5 MG TAB PO SCH (08:47)
[2021-12-16] MEDS: ARTIFICIAL TEARS-HYPROMELLOSE DROPS 15 ML BTL BOTH EYES SCH ×2 (08:48→12:28)
[2021-12-16 11:27] LABS: Glucose,Whole Blood 68 mg/dL (75-99)
[2021-12-16 11:36] LABS: Band Neutrophils % 1 %; Eosinophils # (M) 0.07 k/uL (0-0.7); Monocytes # (M) 0.41 k/uL (0-1.0); Neutrophils % (M) 79 %; Nucleated Red Blood Cells 0 /100 WBC (0-0); Total Cells Counted 100
[2021-12-16 11:38] LABS: Poikilocytosis (M) Present
--- NOTE | 2021-12-16 11:40 | P.DS ---
Providers Date of admission: 12/14/21 04:31 Expected date of discharge: 12/16/21 Attending physician: Crissy Hicks MD Primary care physician: [facility] Course: Discharge Diagnosis: UTI secondary to Evette albicans Toxo metabolic encephalopathy secondary to above Elevated liver enzymes and INR likely due to hepatocellular disease with unclear etiology Lactic acidosis Elevated troponin likely due to demand ischemia Hypokalemia Type 2 diabetes mellitus Coronary disease COPD Atrial fibrillation Hospital Course: Patient is a 70-year-old male with a PMH of type II DM, coronary artery disease status post stents, COPD, and A. fib on Eliquis who was sent from long-term facility for confusion and hypotension. Lab work showed lactic acid 2.1, troponin 0.044 and UA consistent with UTI. Patient started on IV Rocephin. Patient also found to have elevated liver enzymes and elevated INR. Patient had liver ultrasound done that showed hepatomegaly with nonspecific pattern that can be seen in hepatocellular disease, hepatitis and bile duct measured at the upper limit of normal and distal common bile duct stone cannot be excluded. Patient then had a MRCP that was negative for choledocholithiasis. However there is gradually tapering of the common bile duct. Patient's bilirubin was within normal limits. His INR and liver enzymes were stable and patient was asymptomatic so patient recommended to follow-up with gastroenterology as outpatient for further workup regarding the abnormal liver enzymes and INR. Patient's urine culture finalized and grew Evette albicans. Will be discharged on Diflucan for 7 days. Patient's insurance will no longer cover for rehab days at a long-term facility. So family decided to take the patient home and have him work with home PT OT. human services case manager arranged for [employer] lift. At the time of discharge patient's mental status is at his baseline. Patient states that his main complaint is that he has difficulty getting up from a sitting to standing position. I discussed with the daughter about making sure that the patient takes his Diflucan to complete the course and also that patient is to follow-up with GI regarding further liver workup. Patient seen and examined at bedside.[] Vital signs reviewed and stable. General: [non toxic], [no distress], [appears at stated age] patient appears chronically debilitated Derm: [warm], [dry] Head: [atraumatic], [normocephalic], [symmetric] Eyes: [EOMI], [no lid lag], [anicteric sclera] Mouth: [no lip lesion], [mucus membranes moist] Cardiovascular: [S1S2 reg], [no murmur], [positive posterior tibial pulse bilateral], Lungs: [CTA bilateral], [no rhonchi, no rales] , [no accessory muscle use] Abdominal: [soft], [ nontender to palpation], [no guarding], [no appreciable organomegaly] Ext: [no gross muscle atrophy], [no edema], [no contractures] Neuro: [ CN II-XI grossly intact], [no focal neuro deficits] Psych: [Alert], [oriented], [appropriate affect] A total of [33] minutes of time were spent preparing this complex discharge summary . Patient Condition at Discharge: Fair Plan - Discharge Summary New Discharge Prescriptions: Continue Cyclobenzaprine [Flexeril] 10 mg PO HS@2100 allopurinoL [Zyloprim] 100 mg PO HS@2100 Acetaminophen [Tylenol] 650 mg PO Q4H PRN PRN Reason: Pain Sennosides/Docusate Sodium [Senna Plus 8.6-50 mg Tablet] 1 tab PO BID@0600,2100 Zinc 50 mg PO DAILY@0600 Linagliptin [Tradjenta] 5 mg PO DAILY@0900 Escitalopram [Lexapro] 20 mg PO HS@2100 Ascorbic Acid [Vitamin C] 500 mg PO DAILY@0600 Amiodarone [Cordarone] 200 mg PO DAILY@0900 Ammonium Lactate Lotion [Lac-Hydrin 12% Lotion] 1 applic TOPICAL BID Lactose-Reduced Food [Ensure Plus] 1 can PO BID@0900,2100 Artificial Tears-Hypromellose [Artificial Tear Drops] 2 drops BOTH EYES DIRECTED PRN PRN Reason: Dry Eye(S) Artificial Tears-Hypromellose [Artificial Tear Drops] 2 drops BOTH EYES QID Omeprazole 20 mg PO BID@0600,2100 Thiamine HCl [Vitamin B-1] 100 mg PO DAILY@0600 Apixaban [Eliquis] 5 mg PO BID@0900,1700 Metoprolol Succinate [Toprol XL] 25 mg PO DAILY@0900 Ipratropium-Albuterol Nebulize [Duoneb 0.5 mg-3 mg/3 ml Soln] 3 ml INHALATION RT-Q8H PRN ml PRN Reason: shortness of breath Biotene Dry Mouth Liquid Mouthwash 15 mg PO Q6H Pilocarpine HCl [Salagen] 5 mg PO TID@0600,1300,2099 Mupirocin 2% Oint [Bactroban 2% Oint] 1 applic TOPICAL TID Fluconazole [Diflucan] 100 mg PO DAILY@0900 #7 tab Discontinued Atorvastatin [Lipitor] 80 mg PO HS@2099 Cefuroxime [Ceftin] 250 mg PO BID@09,2099 Discharge Medication List Cyclobenzaprine [Flexeril] 10 mg PO HS@209902/10/15 [History] allopurinoL [Zyloprim] 100 mg PO HS@209902/04/17 [History] Acetaminophen [Tylenol] 650 mg PO Q4H PRN 11/02/21 [History] Amiodarone [Cordarone] 200 mg PO DAILY@0900 11/02/21 [History] Ammonium Lactate Lotion [Lac-Hydrin 12% Lotion] 1 applic TOPICAL BID 11/02/21 [History] Apixaban [Eliquis] 5 mg PO BID@0900,1700 11/02/21 [History] Ascorbic Acid [Vitamin C] 500 mg PO DAILY@0611/02/21 [History] Escitalopram [Lexapro] 20 mg PO HS@209911/02/21 [History] Linagliptin [Tradjenta] 5 mg PO DAILY@0900 11/02/21 [History] Metoprolol Succinate [Toprol XL] 25 mg PO DAILY@0911/02/21 [History] Sennosides/Docusate Sodium [Senna Plus 8.6-50 mg Tablet] 1 tab PO BID@0600,209911/02/21 [History] Zinc 50 mg PO DAILY@0600 11/02/21 [History] Lactose-Reduced Food [Ensure Plus] 1 can PO BID@0900,209911/23/21 [History] Ipratropium-Albuterol Nebulize [Duoneb 0.5 mg-3 mg/3 ml Soln] 3 ml INHALATION RT-Q8H PRN ml 11/24/21 [Rx] Artificial Tears-Hypromellose [Artificial Tear Drops] 2 drops BOTH EYES DIRECTED PRN 12/13/21 [History] Artificial Tears-Hypromellose [Artificial Tear Drops] 2 drops BOTH EYES QID 12/13/21 [History] Biotene Dry Mouth Liquid Mouthwash 15 mg PO Q6H 12/13/21 [History] Mupirocin 2% Oint [Bactroban 2% Oint] 1 applic TOPICAL TID 12/13/21 [History] Omeprazole 20 mg PO BID@0600,2100 12/13/21 [History] Pilocarpine HCl [Salagen] 5 mg PO TID@0600,1300,2100 12/13/21 [History] Thiamine HCl [Vitamin B-1] 100 mg PO DAILY@0600 12/13/21 [History] Fluconazole [Diflucan] 100 mg PO DAILY@0900 #7 tab 12/16/21 [Rx] Follow up Appointment(s)/Referral(s): [facility], [NON-STAFF] - Randy Saleh DO [Primary Care Provider] - 1-2 days Haily Bui MD [STAFF PHYSICIAN] - 1 Week Activity/Diet/Wound Care/Special Instructions: Patient will require a nikia lift r/t patient needing at least 2 people to get out of bed to complete ADLs or otherwise beneficiary would be bed bound r/t CVA, COPD, and Difficulty with Ambulation. Patient will require a commode chair with a drop arm r/t being room confined r/t CVA, COPD, and Difficulty with Ambulation. Discharge Disposition: HOME WITH HOME HEALTH SERVICES
[2021-12-16 12:27] VITALS: BP 112/53; PULSE 64
[2021-12-16] MEDS: METOPROLOL SUCCINATE (ER) 25 MG TAB.ER.24H PO SCH (12:27)
[2021-12-16 12:48] LABS: Glucose,Whole Blood 245 mg/dL (75-99)
[2021-12-19] MEDS ORDERED: ARTIFICIAL TEARS-HYPROMELLOSE DROPS 15 ML BTL BOTH EYES PRN (05:17)
== END 2021-12-16 14:17 | disposition home health service (06) | DRG 727 ==
LOC: EC 21:32 → 3SCARD 12-14 04:31
PROVIDERS: ADMIT Internal Medicine; ATTEND Internal Medicine
DX: B37.49 Other urogenital candidiasis (principal); G92.8 Other toxic encephalopathy; E87.2 Acidosis; I24.8 Other forms of acute ischemic heart disease; J98.11 Atelectasis; E11.22 Type 2 diabetes mellitus with diabetic chronic kidney disease; E78.5 Hyperlipidemia, unspecified; E86.0 Dehydration; E87.6 Hypokalemia; I13.10 Hypertensive heart and chronic kidney disease without heart failure, with stage 1 through stage 4 chronic kidney disease, or unspecified chronic kidney disease; I25.10 Atherosclerotic heart disease of native coronary artery without angina pectoris; I25.2 Old myocardial infarction; I45.9 Conduction disorder, unspecified; I48.91 Unspecified atrial fibrillation; J44.9 Chronic obstructive pulmonary disease, unspecified; N18.9 Chronic kidney disease, unspecified; R79.1 Abnormal coagulation profile; Z79.01 Long term (current) use of anticoagulants; Z98.890 Other specified postprocedural states; Z79.84 Long term (current) use of oral hypoglycemic drugs; Z79.899 Other long term (current) drug therapy; Z80.6 Family history of leukemia; Z82.3 Family history of stroke; Z82.49 Family history of ischemic heart disease and other diseases of the circulatory system; Z82.5 Family history of asthma and other chronic lower respiratory diseases; Z86.73 Personal history of transient ischemic attack (TIA), and cerebral infarction without residual deficits; Z87.891 Personal history of nicotine dependence; Z95.1 Presence of aortocoronary bypass graft; Z95.5 Presence of coronary angioplasty implant and graft; Z81.8 Family history of other mental and behavioral disorders; K21.9 Gastro-esophageal reflux disease without esophagitis; G89.29 Other chronic pain
CPT/HCPCS: 36415; 71045; 74181; 76705; 80053; 81001; 83036; 83605; 84484; 85025; 85610; 85730; 87040; 87086; 93005; 94760; 96361; 96365; 99285

== ENCOUNTER 2022-01-17 15:46 | Inpatient (IN) | payer MEDICARE, OTHER ==
[2022-01-17] MEDS ORDERED: SODIUM CHLORIDE 0.9% 1,000 ML IV STA (16:22)
[2022-01-17 17:00] LABS: Anisocytosis Slight; HCT 38.1 % (39.0-53.0); MCH 30.8 pg (25.0-35.0); MCHC 32.2 g/dL (31.0-37.0); MCV 95.8 fL (80.0-100.0); Mean Platelet Volume 7.5; Platelet Count 228 k/uL (150-450); RBC 3.97 m/uL (4.30-5.90); RDW 17.5 % (11.5-15.5); WBC 12.9 k/uL (3.8-10.6)
[2022-01-17 17:01] LABS: HGB 12.2 gm/dL (13.0-17.5)
[2022-01-17 17:02] LABS: ALT 17 U/L (4-49); AST 19 U/L (17-59); African American GFR (CKD) 58 (>60 ml/min/1.73 sqM); Albumin 2.3 g/dL (3.5-5.0); Alkaline Phosphatase 106 U/L (38-126); Amylase 30 U/L (30-110); Anion Gap 7 mmol/L; Blood Urea Nitrogen 33 mg/dL (9-20); Calcium 7.7 mg/dL (8.4-10.2); Carbon Dioxide 17 mmol/L (22-30); Chloride 105 mmol/L (98-107); Glucose 181 mg/dL (74-99); Lipase <10 U/L (23-300); Non-African American GFR(CKD) 50 (>60 ml/min/1.73 sqM); Potassium 3.3 mmol/L (3.5-5.1); Sodium 129 mmol/L (137-145); Total Bilirubin 0.9 mg/dL (0.2-1.3); Total Protein 4.7 g/dL (6.3-8.2)
[2022-01-17 17:08] LABS: INR 1.4 (<1.2); Prothrombin Time 14.4 sec (9.0-12.0)
[2022-01-17 17:30] LABS: Appearance,Urine Clear (Clear); Bilirubin,Urine Negative (Negative); Blood,Urine Negative (Negative); Color,Urine Yellow; Glucose,Urine (UA) Negative (Negative); Hyaline Casts,Urine 13 /lpf (0-2); Ketones,Urine Negative (Negative); Leukocyte Esterase,Urine Trace (Negative); Mucus,Urine Few /hpf; Nitrite,Urine Negative (Negative); PH, Urine 5.5 (5.0-8.0); Protein,Urine Trace (Negative); RBC,Urine 3 /hpf (0-5); Squamous Epithelial Cell,Urine <1 /hpf (0-4); Urobilinogen,Urine <2.0 mg/dL (<2.0); WBC,Urine 4 /hpf (0-5)
[2022-01-17 17:43] LABS: Band Neutrophils % 6 %; Eosinophils # (M) 0.13 k/uL (0-0.7); Lymphocytes # (M) 1.03 k/uL (1.0-4.8); Monocytes # (M) 1.03 k/uL (0-1.0); Neutrophils % (M) 77 %; Nucleated Red Blood Cells 0 /100 WBC (0-0); Total Cells Counted 100
--- NOTE | 2022-01-17 17:46 | XR ---
EXAMINATION TYPE: XR abdomen acute w cxr DATE OF EXAM: 01/17/2022 COMPARISON: NONE HISTORY: Abdominal pain TECHNIQUE: 4 views FINDINGS: Heart is normal. There clips at the left pulmonary hilum. There is slight blunting left cos tophrenic angle. There is gas-distended loops of large bowel. No evidence of free air. I see no evidence of abdominal mass. There are no pathologic calcifications seen definitely over the kidneys. There is mild vascular calcification. IMPRESSION: There is some pleural reaction at the lateral left lung base. No heart failure. Previous surgery. Distended gas-filled large bowel suggestive of ileus. No free air.
[2022-01-17] MEDS ORDERED: SODIUM CHLORIDE 0.9% 1,000 ML IV ONE ×3 (17:52→23:19)
--- NOTE | 2022-01-17 18:11 | CT ---
EXAMINATION TYPE: CT abdomen pelvis w con DATE OF EXAM: 01/17/2022 COMPARISON: 11/05/2019 HISTORY: abdominal pain CT DLP: 1439.1 mGycm Automated exposure control for dose reduction was used. CONTRAST: Performed with IV Contrast, patient injected with 80cc mL of Isovue 370. Images obtained from the diaphragm to the floor the pelvis with IV contrast. There is some patchy atelectasis left lung base. Heart size is normal. Liver spleen and stomach appea r intact. There is no pancreatic mass. Gallbladder is distended with fluid. Gallbladder not significa ntly dilated. The bile ducts are not dilated. There is no adrenal mass. Kidneys show satisfactory contrast opacification. There is no hydronephrosi s. There is no retroperitoneal adenopathy. Ureters are not dilated. Bladder distends smoothly. There is prostate calcifications. No inguinal hernia. No free fluid in the pelvis. The appendix is posterio r and appears normal. There are large ball fluid levels down to the rectum. There is mild dilation of the transverse colon with air and fluid. There is fat stranding around the descending colon. The small amount of fluid in the left paracolic gutter. There is some mild wall thickening of the proximal sigmoid colon. Lumbar vertebrae have normal alignment. There is L1 anterior wedging 50% consistent with an old fract ure. The bony pelvis appears intact. IMPRESSION: Distended large bowel with fluid levels down to the rectum consistent with ileus and diarrhea. There is some mild fat stranding around the descending colon and proximal sigmoid colon that is consistent with some nonspecific colitis. Abnormalities appear new compared to old exam. There is L1 compression fracture that has progressed compared to old exam. There is some interstitial infiltrate and atelectasis left posterior lung base which is new compared to old exam.
[2022-01-17] MEDS ORDERED: metroNIDAZOLE-NS PMX 500 MG in SALINE 1 100ML.BAG IVPB STA (18:42)
[2022-01-17] MEDS ORDERED: LEVOFLOXACIN 250MG-D5W PMX 750 MG in DEXTROSE/WATER 1 50ML.BAG IVPB STA (18:44)
[2022-01-17] MEDS ORDERED: LEVOFLOXACIN 750MG-D5W PMX 750 MG in DEXTROSE/WATER 1 150ML.BAG IVPB STA (18:51)
[2022-01-17] MEDS ORDERED: POTASSIUM CHLORIDE ER 20 MEQ TAB.ER PO STA (19:25)
[2022-01-17] MEDS ORDERED: NALOXONE 0.4 MG/ML 1 ML VIAL IV PRN (19:28)
[2022-01-17 19:49] LABS: Glucose,Whole Blood 132 mg/dL (75-99)
--- NOTE | 2022-01-17 20:24 | ED ---
General Adult HPI - General Chief complaint: Nausea/Vomiting/Diarrhea Stated complaint: nausea, abd pain Time Seen by Provider: 01/17/22 16:04 Source: patient, EMS Mode of arrival: EMS Limitations: no limitations - History of Present Illness Initial comments: Patient is a 71-year-old male presenting with chief complaint of abdominal pain. History of A. fib, diabetes, CHF, CAD. Patient states that the abdominal pain is accompanied by nausea, vomiting, diarrhea and has been present for approximately one week. Patient arrived via EMS from skilled nursing. Pain is localized to directly under the umbilicus and centralized. He denies radiation of pain. It is a sharp pain and is sensitive to any type of pressure. Patient denies any chest pain, shortness of breath, hematochezia, melena, hematemesis, cough, hemoptysis, fever, chills, URI-like symptoms, dysuria, hematuria, urgency, frequency. - Related Data Home Medications Medication Instructions Recorded Confirmed allopurinoL [Zyloprim] 100 mg PO DAILY@0900 02/04/17 01/17/22 Amiodarone [Cordarone] 200 mg PO DAILY@89911/02/21 01/17/22 Apixaban [Eliquis] 5 mg PO BID@0900,209911/02/21 01/17/22 Escitalopram [Lexapro] 20 mg PO DAILY@89911/02/21 01/17/22 Linagliptin [Tradjenta] 5 mg PO DAILY@0900 11/02/21 01/17/22 Sennosides/Docusate Sodium [Senna 1 tab PO DAILY@89911/02/21 01/17/22 Plus 8.6-50 mg Tablet] Biotene Dry Mouth Liquid Mouthwash 5 ml PO Q1H PRN 12/13/21 01/17/22 Pilocarpine HCl [Salagen] 5 mg PO TID@0600,1300,209912/13/21 01/17/22 Calcium Carbonate/Vitamin D3 1 tab PO BID@0900,209901/17/22 01/17/22 [Calcium 500 mg Chewable Tablet] Furosemide [Lasix] 40 mg PO DAILY@0900 01/17/22 01/17/22 Insulin Lispro [humaLOG Kwikpen] See Protocol SQ ACHS 01/17/22 01/17/22 Ipratropium-Albuterol Nebulize 3 ml INHALATION RT-Q6H PRN 01/17/22 01/17/22 [Duoneb 0.5 mg-3 mg/3 ml Soln] Levothyroxine Sodium [Synthroid] 50 mcg PO HS@209901/17/22 01/17/22 Loperamide [Imodium] 2 mg PO DAILY PRN 01/17/22 01/17/22 Megestrol Acetate 400 mg PO BID@0900,209901/17/22 01/17/22 Melatonin 5 mg PO HS@209901/17/22 01/17/22 Sodium Bicarbonate Tab 650 mg PO BID@0900,209901/17/22 01/17/22 metroNIDAZOLE [Flagyl] 500 mg PO TID@0900,1300,209901/17/22 01/17/22 traMADol HCL 50 mg PO Q6H PRN 01/17/22 01/17/22 Allergies Allergy/AdvReac Type Severity Reaction Status Date / Time codeine Allergy Unknown Verified 01/17/22 18:40 Childhood morphine Allergy Unknown Verified 01/17/22 18:40 Childhood Review of Systems ROS Statement: Those systems with pertinent positive or pertinent negative responses have been documented in the HPI. ROS Other: All systems not noted in ROS Statement are negative. Past Medical History Past Medical History: COPD, CVA/TIA, Diabetes Mellitus, GERD/Reflux, Hyperlipidemia, Hypertension, Myocardial Infarction ([place]), Renal Disease Additional Past Medical History / Comment(s): COPD, CVA 1997, carotid artery disease, diabetes mellitus, chronic back pain, tenosynovitis involving the wrists and hands bilaterally, chronic renal failure, mild aortic stenosis with a peak gradient across the aortic valve of 70 mmHg; three heart attacks, last in 2001 Last Myocardial Infarction Date:: 2001 History of Any Multi-Drug Resistant Organisms: None Reported Past Surgical History: Coronary Bypass/CABG, Heart Catheterization With Stent, H ernia Repair Additional Past Surgical History / Comment(s): March 1998 Cabg TRIPLE vessel by Dr. Ge. [facility] with 3 stents. 4th stent 2016 at [place], COLONOSCOPY Past Anesthesia/Blood Transfusion Reactions: No Reported Reaction Date of Last Stent Placement:: March 1998, 2015 Past Psychological History: No Psychological Hx Reported Smoking Status: Former smoker Past Alcohol Use History: None Reported Past Drug Use History: None Reported - Past Family History Father Family Medical History: Cancer Additional Family Medical History / Comment(s): Leukemia Father of leukemia at age 32yrs Mother Family Medical History: COPD Additional Family Medical History / Comment(s): Mother was 76 when she . She had mental illness. Sister(s) Family Medical History: Coronary Artery Disease (CAD), CVA/TIA Brother(s) Family Medical History: Coronary Artery Disease (CAD) General Exam Limitations: no limitations General appearance: alert, in no apparent distress Head exam: Present: atraumatic, normocephalic, normal inspection Eye exam: Present: normal appearance, EOMI. Absent: scleral icterus Neck exam: Present: normal inspection Respiratory exam: Present: normal lung sounds bilaterally. Absent: respiratory distress, wheezes, rales, rhonchi, stridor Cardiovascular Exam: Present: normal rhythm, tachycardia, normal heart sounds. Absent: systolic murmur, diastolic murmur, rubs, gallop, clicks GI/Abdominal exam: Present: soft, distended, tenderness, normal bowel sounds. Absent: guarding, rebound, rigid Extremities exam: Present: normal inspection. Absent: pedal edema Neurological exam: Present: alert, oriented X3, CN II-XII intact Psychiatric exam: Present: normal affect, normal mood Skin exam: Present: warm, dry, intact, normal color. Absent: rash Course Vital Signs 01/17/22 01/17/22 01/17/22 16:08 16:27 16:29 Temperature 97.9 F Pulse Rate 87 Respiratory 18 18 Rate Blood Pressure 81/56 112/89 O2 Sat by Pulse 100 99 Oximetry 01/17/22 01/17/22 01/17/22 16:30 16:31 16:40 Temperature Pulse Rate 130 H 135 H 130 H Respiratory 18 20 18 Rate Blood Pressure 112/89 93/66 93/66 O2 Sat by Pulse 100 100 100 Oximetry 01/17/22 01/17/22 01/17/22 16:50 17:00 18:00 Temperature Pulse Rate 129 H 134 H 121 H Respiratory 18 18 18 Rate Blood Pressure 93/66 93/66 82/59 O2 Sat by Pulse 100 100 Oximetry 01/17/22 01/17/22 01/17/22 18:30 19:00 19:30 Temperature Pulse Rate 123 H 111 H 109 H Respiratory 18 14 15 Rate Blood Pressure 83/66 96/66 89/63 O2 Sat by Pulse 100 100 100 Oximetry 01/17/22 01/17/22 20:00 21:21 Temperature 98.6 F Pulse Rate 108 H 125 H Respiratory 14 14 Rate Blood Pressure 88/69 84/53 O2 Sat by Pulse 100 Oximetry - Reevaluation(s) Reevaluation #1: On reevaluation at approximately 23:30 with the attending physician, patient was ordered another 1 L fluid bolus. Urine present in urinal is extremely dark, indicating extreme dehydration 01/18/22 00:24 EKG Findings - EKG Comments: EKG Findings:: Atrial flutter/tachycardia with rapid ventricular response. Right bundle branch block. Left posterior fascicular block. ST deviation and moderate T wave abnormality. Rate of 127. This EKG was also shown to and interpreted by my attending Dr. Guardado Medical Decision Making - Medical Decision Making Patient is a 71-year-old male presenting with chief complaint of abdominal pain, nausea, vomiting, diarrhea times one week. Patient has a history of A. fib, CHF, diabetes, CAD. On examination abdomen is tender and distended, mainly just below the umbilicus and the centralized area. Lungs are clear to auscultation, tachycardic. Patient is hypotensive. EKG shows atrial flutter/tachycardia with rapid ventricular response. Rate of 127. Discussed EKG findings with my attending Dr. Guardado who stated that we should hold Cardizem at this time due to his hypotension. Lab work is remarkable for leukocytosis with WBC of 12.9. Patient is hyponatremic at 129 and hypokalemic at 3.3. BUN and creatinine are elevated at 33 and 1.42 respectively. He has hypocalcemic [place] 7.[place] [address]. UA is negative for infection. Acute abdominal series with chest x-ray shows some pleural reaction at the lateral left lung base. No acute heart failure. Distended gas-filled large bowel suggestive of ileus. No free air. CT of abdomen and pelvis with contrast shows distended large bowel with fluid levels down to the rectum consistent with ileus and diarrhea. There is some mild fat stranding around the descending colon and proximal sigmoid colon that is consistent with some nonspecific colitis. Additional findings include L1 compression fracture that has progressed compared to old exam and some interstitial infiltrate and atelectasis of the left posterior lung base. Patient has been given a total of 4.5 L normal saline fluid bolus for hypotension. He is placed on a maintenance rate of 130 mL per hour. He was given levofloxacin and Flagyl for colitis treatment. He is given Zofran for nausea. I spoke with Dr. Hicks who agreed to admit the patient for ileus and hypotension. I explained the plan to the patient, he conveyed verbal understanding and agreed to the plan. I discussed this case with my attending Dr. Guardado. - Lab Data Result diagrams: 01/17/22 16:25 01/17/22 16:25 Lab Results 01/17/22 01/17/22 01/17/22 Range/Units 16:25 16:25 16:25 WBC 12.9 H (3.8-10.6) k/uL RBC 3.97 L (4.30-5.90) m/uL Hgb 12.2 L D (13.0-17.5) gm/dL Hct 38.1 L (39.0-53.0) % MCV 95.8 (80.0-100.0) fL MCH 30.8 (25.0-35.0) pg MCHC 32.2 (31.0-37.0) g/dL RDW 17.5 H (11.5-15.5) % Plt Count 228 (150-450) k/uL MPV 7.5 Neutrophils % Not Reportable Neutrophils % (Manual) 77 % Band Neuts % (Manual) 6 % Lymphocytes % Not Reportable Lymphocytes % (Manual) 8 % Monocytes % Not Reportable Monocytes % (Manual) 8 % Eosinophils % Not Reportable Eosinophils % (Manual) 1 % Basophils % Not Reportable Neutrophils # Not Reportable Neutrophils # (Manual) 10.70 H (1.3-7.7) k/uL Lymphocytes # Not Reportable Lymphocytes # (Manual) 1.03 (1.0-4.8) k/uL Monocytes # Not Reportable Monocytes # (Manual) 1.03 H (0-1.0) k/uL Eosinophils # Not Reportable Eosinophils # (Manual) 0.13 (0-0.7) k/uL Basophils # Not Reportable Nucleated RBCs 0 (0-0) /100 WBC Manual Slide Review Performed Anisocytosis Slight PT 14.4 H (9.0-12.0) sec INR 1.4 H (<1.2) APTT 30.0 (22.0-30.0) sec Sodium (137-145) mmol/L Potassium (3.5-5.1) mmol/L Chloride (98-107) mmol/L Carbon Dioxide (22-30) mmol/L Anion Gap mmol/L BUN (9-20) mg/dL Creatinine (0.66-1.25) mg/dL Est GFR (CKD-EPI)AfAm (>60 ml/min/1.73 sqM) Est GFR (CKD-EPI)NonAf (>60 ml/min/1.73 sqM) Glucose (74-99) mg/dL POC Glucose (mg/dL) (75-99) mg/dL POC Glu Electronics Manufacturer ID Plasma Lactic Acid Paco (0.7-2.0) mmol/L Calcium (8.4-10.2) mg/dL Magnesium (1.6-2.3) mg/dL Total Bilirubin (0.2-1.3) mg/dL AST (17-59) U/L ALT (4-49) U/L Alkaline Phosphatase (38-126) U/L Troponin I (0.000-0.034) ng/mL NT-Pro-B Natriuret Pep pg/mL Total Protein (6.3-8.2) g/dL Albumin (3.5-5.0) g/dL Amylase (30-110) U/L Lipase (23-300) U/L Urine Color Yellow Urine Appearance Clear (Clear) Urine pH 5.5 (5.0-8.0) Ur Specific [place] 1.020 (1.001-1.035) Urine Protein Trace H (Negative) Urine Glucose (UA) Negative (Negative) Urine Ketones Negative (Negative) Urine Blood Negative (Negative) Urine Nitrite Negative (Negative) Urine Bilirubin Negative (Negative) Urine Urobilinogen <2.0 (<2.0) mg/dL Ur Leukocyte Esterase Trace H (Negative) Urine RBC 3 (0-5) /hpf Urine WBC 4 (0-5) /hpf Ur Squamous Epith Cells <1 (0-4) /hpf Hyaline Casts 13 H (0-2) /lpf Urine Mucus Few H (None) /hpf 01/17/22 01/17/22 01/17/22 Range/Units 16:25 16:25 16:25 WBC (3.8-10.6) k/uL RBC (4.30-5.90) m/uL Hgb (13.0-17.5) gm/dL Hct (39.0-53.0) % MCV (80.0-100.0) fL MCH (25.0-35.0) pg MCHC (31.0-37.0) g/dL RDW (11.5-15.5) % Plt Count (150-450) k/uL MPV Neutrophils % Neutrophils % (Manual) % Band Neuts % (Manual) % Lymphocytes % Lymphocytes % (Manual) % Monocytes % Monocytes % (Manual) % Eosinophils % Eosinophils % (Manual) % Basophils % Neutrophils # Neutrophils # (Manual) (1.3-7.7) k/uL Lymphocytes # Lymphocytes # (Manual) (1.0-4.8) k/uL Monocytes # Monocytes # (Manual) (0-1.0) k/uL Eosinophils # Eosinophils # (Manual) (0-0.7) k/uL Basophils # Nucleated RBCs (0-0) /100 WBC Manual Slide Review Anisocytosis PT (9.0-12.0) sec INR (<1.2) APTT (22.0-30.0) sec Sodium 129 L (137-145) mmol/L Potassium 3.3 L (3.5-5.1) mmol/L Chloride 105 (98-107) mmol/L Carbon Dioxide 17 L (22-30) mmol/L Anion Gap 7 mmol/L BUN 33 H (9-20) mg/dL Creatinine 1.42 H (0.66-1.25) mg/dL Est GFR (CKD-EPI)AfAm 58 (>60 ml/min/1.73 sqM) Est GFR (CKD-EPI)NonAf 50 (>60 ml/min/1.73 sqM) Glucose 181 H (74-99) mg/dL POC Glucose (mg/dL) (75-99) mg/dL POC Glu Electronics Manufacturer ID Plasma Lactic Acid Paco 2.0 (0.7-2.0) mmol/L Calcium 7.7 L (8.4-10.2) mg/dL Magnesium (1.6-2.3) mg/dL Total Bilirubin 0.9 (0.2-1.3) mg/dL AST 19 (17-59) U/L ALT 17 (4-49) U/L Alkaline Phosphatase 106 (38-126) U/L Troponin I 0.012 (0.000-0.034) ng/mL NT-Pro-B Natriuret Pep pg/mL Total Protein 4.7 L (6.3-8.2) g/dL Albumin 2.3 L (3.5-5.0) g/dL Amylase 30 (30-110) U/L Lipase <10 L (23-300) U/L Urine Color Urine Appearance (Clear) Urine pH (5.0-8.0) Ur Specific [place] (1.001-1.035) Urine Protein (Negative) Urine Glucose (UA) (Negative) Urine Ketones (Negative) Urine Blood (Negative) Urine Nitrite (Negative) Urine Bilirubin (Negative) Urine Urobilinogen (<2.0) mg/dL Ur Leukocyte Esterase (Negative) Urine RBC (0-5) /hpf Urine WBC (0-5) /hpf Ur Squamous Epith Cells (0-4) /hpf Hyaline Casts (0-2) /lpf Urine Mucus (None) /hpf 01/17/22 01/17/22 01/17/22 Range/Units 17:56 19:29 19:48 WBC (3.8-10.6) k/uL RBC (4.30-5.90) m/uL Hgb (13.0-17.5) gm/dL Hct (39.0-53.0) % MCV (80.0-100.0) fL MCH (25.0-35.0) pg MCHC (31.0-37.0) g/dL RDW (11.5-15.5) % Plt Count (150-450) k/uL MPV Neutrophils % Neutrophils % (Manual) % Band Neuts % (Manual) % Lymphocytes % Lymphocytes % (Manual) % Monocytes % Monocytes % (Manual) % Eosinophils % Eosinophils % (Manual) % Basophils % Neutrophils # Neutrophils # (Manual) (1.3-7.7) k/uL Lymphocytes # Lymphocytes # (Manual) (1.0-4.8) k/uL Monocytes # Monocytes # (Manual) (0-1.0) k/uL Eosinophils # Eosinophils # (Manual) (0-0.7) k/uL Basophils # Nucleated RBCs (0-0) /100 WBC Manual Slide Review Anisocytosis PT (9.0-12.0) sec INR (<1.2) APTT (22.0-30.0) sec Sodium (137-145) mmol/L Potassium (3.5-5.1) mmol/L Chloride (98-107) mmol/L Carbon Dioxide (22-30) mmol/L Anion Gap mmol/L BUN (9-20) mg/dL Creatinine (0.66-1.25) mg/dL Est GFR (CKD-EPI)AfAm (>60 ml/min/1.73 sqM) Est GFR (CKD-EPI)NonAf (>60 ml/min/1.73 sqM) Glucose (74-99) mg/dL POC Glucose (mg/dL) 132 H (75-99) mg/dL POC Glu Electronics Manufacturer ID Gunnar Stephenson Plasma Lactic Acid Paco (0.7-2.0) mmol/L Calcium (8.4-10.2) mg/dL Magnesium 1.5 L (1.6-2.3) mg/dL Total Bilirubin (0.2-1.3) mg/dL AST (17-59) U/L ALT (4-49) U/L Alkaline Phosphatase (38-126) U/L Troponin I (0.000-0.034) ng/mL NT-Pro-B Natriuret Pep 70494 pg/mL Total Protein (6.3-8.2) g/dL Albumin (3.5-5.0) g/dL Amylase (30-110) U/L Lipase (23-300) U/L Urine Color Urine Appearance (Clear) Urine pH (5.0-8.0) Ur Specific [place] (1.001-1.035) Urine Protein (Negative) Urine Glucose (UA) (Negative) Urine Ketones (Negative) Urine Blood (Negative) Urine Nitrite (Negative) Urine Bilirubin (Negative) Urine Urobilinogen (<2.0) mg/dL Ur Leukocyte Esterase (Negative) Urine RBC (0-5) /hpf Urine WBC (0-5) /hpf Ur Squamous Epith Cells (0-4) /hpf Hyaline Casts (0-2) /lpf Urine Mucus (None) /hpf Disposition Clinical Impression: Ileus, Hypotension, Colitis Disposition: ADMITTED IP TO THIS HOSP Condition: Stable Referrals: Randy Saleh DO [Primary Care Provider] - 1-2 days Time of Disposition: 20:24 Decision to Admit Reason: Admit from EC Decision Date: 01/17/22 Decision Time: 20:24
[2022-01-17] MEDS ORDERED: SODIUM CHLORIDE 0.9% 500 ML 500 ML IV ONE (21:11)
[2022-01-17] MEDS ORDERED: ONDANSETRON 4 MG/2 ML VIAL IVP STA (21:46)
[2022-01-17] MEDS ORDERED: FAMOTIDINE 20 MG/2 ML VIAL IV STA (22:00)
--- NOTE | 2022-01-17 23:10 | P.HPIM ---
History of Present Illness H&P Date: 01/17/22 The patient is a 71-year-old male with a PMH of coronary artery disease status post multiple stents, type II DM, A. fib on Eliquis, and COPD, CHF (diastolic), resident of senior care who presents to the emergency room for abdominal pain and diarrhea. The patient reports that his symptoms started a week ago. He reports diffuse abdominal discomfort, 7 out of 10 on maximal intensity, aching and sharp in nature, with associated diarrhea. He reports loose BMs over the past 3-4 days. Denied nausea or vomiting. Also denied experiencing fever, chills, cough, chest pain, shortness of breath, or urinary complaints. Denied any changes in his diet. Reports that as a result of his symptoms, he has not been eating or drinking as much as usual. CT abdomen and pelvis revealed a distended large bowel, as well as findings consistent with nonspecific colitis. There was also an L1 compression fracture, which had progressed from prior study, as well as some interstitial infiltrates in the left posterior lung which were new. After evaluation had revealed a WBC count 12.9, and 12.2, sodium 129, potassium 3.3, CO2 17, BUN 33, creatinine 1.42 (previously 1.27 on 11/2021), lactic acid 2.0, proBNP 11,200, and troponin 0.012. The patient had persistent hypotension in the emergency room with systolic 84/53, and pulse 125. Review of systems: Pertinent positives and negatives as discussed in HPI, a complete review of systems was performed and all other systems are negative. Physical examination: General: non toxic, no distress, appears significantly older than stated age, normal weight Derm: Diffuse upper extremity ecchymosis with thin skin throughout, warm, dry Head: atraumatic, normocephalic, symmetric Eyes: EOMI, no lid lag, anicteric sclera, pupils equal round reactive to light ENT: Nose and ears atraumatic, no thrush, no pharyngeal erythema Neck: No thyromegaly, no cervical lymphadenopathy, trachea midline, supple Mouth: no lip lesion, mucus membranes moist Cardiovascular: S1S2 reg, no murmur, positive posterior tibial pulse bilateral, no edema, capillary refill less than 2 seconds Lungs: CTA bilateral, no rhonchi, no rales , no accessory muscle use Abdominal: soft, mild diffuse tenderness, no guarding, no appreciable organomegaly, normal bowel sounds Ext: no gross muscle atrophy, muscle strength 3 out of 5 in all 4 extremities grossly, no contractures, Neuro: CN II-XI grossly intact, light touch intact all 4 extremities, finger to nose within normal limits, Psych: Alert, oriented, appropriate affect Assessment/plan Sepsis secondary to colitis -Continue with IV antibiotics -NPO for now -Gentle IVFs in setting of hx of CHF Hypokalemia -Replace and monitor Acute kidney injury, likely secondary to ongoing sepsis -Gentle IV hydration -Monitor BMP DVT prophylaxis -Eliquis The patient is admitted with an anticipated greater than 2 midnight stay for evaluation of colitis CODE STATUS: Full Code Discussed with: Patient Anticipated discharge date: 01/[address]: [facility] Past Medical History Past Medical History: COPD, CVA/TIA, Diabetes Mellitus, GERD/Reflux, Hyperlipidemia, Hypertension, Myocardial Infarction ([place]), Renal Disease Additional Past Medical History / Comment(s): COPD, CVA 1997, carotid artery disease, diabetes mellitus, chronic back pain, tenosynovitis involving the wrists and hands bilaterally, chronic renal failure, mild aortic stenosis with a peak gradient across the aortic valve of 70 mmHg; three heart attacks, last in 2001 Last Myocardial Infarction Date:: 2001 History of Any Multi-Drug Resistant Organisms: None Reported Past Surgical History: Coronary Bypass/CABG, Heart Catheterization With Stent, Hernia Repair Additional Past Surgical History / Comment(s): March 1998 Cabg TRIPLE vessel by Dr. Ge. [facility] with 3 stents. 4th stent 2015 at [place], COLONOSCOPY Past Anesthesia/Blood Transfusion Reactions: No Reported Reaction Date of Last Stent Placement:: March 1998, 2015 Past Psychological History: No Psychological Hx Reported Smoking Status: Former smoker Past Alcohol Use History: None Reported Past Drug Use History: None Reported - Past Family History Father Family Medical History: Cancer Additional Family Medical History / Comment(s): Leukemia Father of leukemia at age 32yrs Mother Family Medical History: COPD Additional Family Medical History / Comment(s): Mother was 76 when she . She had mental illness. Sister(s) Family Medical History: Coronary Artery Disease (CAD), CVA/TIA Brother(s) Family Medical History: Coronary Artery Disease (CAD) Medications and Allergies Home Medications Medication Instructions Recorded Confirmed Type allopurinoL [Zyloprim] 100 mg PO DAILY@0900 02/04/17 04/25/22 History Amiodarone [Cordarone] 200 mg PO DAILY@89911/02/21 01/17/22 History Apixaban [Eliquis] 5 mg PO BID@0900,209911/02/21 01/17/22 History Escitalopram [Lexapro] 20 mg PO DAILY@89911/02/21 01/17/22 History Linagliptin [Tradjenta] 5 mg PO DAILY@89911/02/21 01/17/22 History Sennosides/Docusate Sodium [Senna 1 tab PO DAILY@89911/02/21 01/17/22 History Plus 8.6-50 mg Tablet] Biotene Dry Mouth Liquid Mouthwash 5 ml PO Q1H PRN 12/13/21 01/17/22 History Pilocarpine HCl [Salagen] 5 mg PO TID@0600,1300,209912/13/21 01/17/22 History Calcium Carbonate/Vitamin D3 1 tab PO BID@0900,209901/17/22 01/17/22 History [Calcium 500 mg Chewable Tablet] Furosemide [Lasix] 40 mg PO DAILY@89901/17/22 01/17/22 History Insulin Lispro [humaLOG Kwikpen] See Protocol SQ ACHS 01/17/22 01/17/22 History Ipratropium-Albuterol Nebulize 3 ml INHALATION RT-Q6H PRN 01/17/22 01/17/22 History [Duoneb 0.5 mg-3 mg/3 ml Soln] Levothyroxine Sodium [Synthroid] 50 mcg PO HS@209901/17/22 01/17/22 History Loperamide [Imodium] 2 mg PO DAILY PRN 01/17/22 01/17/22 History Megestrol Acetate 400 mg PO BID@0900,209901/17/22 01/17/22 History Melatonin 5 mg PO HS@209901/17/22 01/17/22 History Sodium Bicarbonate Tab 650 mg PO BID@0900,209901/17/22 01/17/22 History metroNIDAZOLE [Flagyl] 500 mg PO TID@0900,1300,209901/17/22 01/17/22 History traMADol HCL 50 mg PO Q6H PRN 01/17/22 01/17/22 History Allergies Allergy/AdvReac Type Severity Reaction Status Date / Time codeine Allergy Unknown Verified 01/17/22 18:40 Childhood morphine Allergy Unknown Verified 01/17/22 18:40 Childhood Physical Exam Vitals: Vital Signs Temp Pulse Resp BP Pulse Ox 01/17/22 21:21 98.6 F 125 H 14 84/53 100 01/17/22 20:00 108 H 14 88/69 01/17/22 19:30 109 H 15 89/63 100 01/17/22 19:00 111 H 14 96/66 100 01/17/22 18:30 123 H 18 83/66 100 01/17/22 18:00 121 H 18 82/59 100 01/17/22 17:00 134 H 18 93/66 01/17/22 16:50 129 H 18 93/66 100 01/17/22 16:40 130 H 18 93/66 100 01/17/22 16:31 135 H 20 93/66 100 01/17/22 16:30 130 H 18 112/89 100 01/17/22 16:29 18 112/89 99 01/17/22 16:27 97.9 F 01/17/22 16:08 87 18 81/56 100 Intake and Output 01/17/22 01/17/22 01/17/22 06:59 14:59 22:59 Other: Weight 99.79 kg Results CBC & Chem 7: 01/18/22 00:39 01/18/22 00:39 Labs: Abnormal Lab Results - Last 24 Hours (Table) 01/17/22 01/17/22 01/17/22 Range/Units 16:25 16:25 16:25 WBC 12.9 H (3.8-10.6) k/uL RBC 3.97 L (4.30-5.90) m/uL Hgb 12.2 L D (13.0-17.5) gm/dL Hct 38.1 L (39.0-53.0) % RDW 17.5 H (11.5-15.5) % Neutrophils # (Manual) 10.70 H (1.3-7.7) k/uL Monocytes # (Manual) 1.03 H (0-1.0) k/uL PT 14.4 H (9.0-12.0) sec INR 1.4 H (<1.2) Sodium (137-145) mmol/L Potassium (3.5-5.1) mmol/L Carbon Dioxide (22-30) mmol/L BUN (9-20) mg/dL Creatinine (0.66-1.25) mg/dL Glucose (74-99) mg/dL POC Glucose (mg/dL) (75-99) mg/dL Calcium (8.4-10.2) mg/dL Magnesium (1.6-2.3) mg/dL Total Protein (6.3-8.2) g/dL Albumin (3.5-5.0) g/dL Lipase (23-300) U/L Urine Protein Trace H (Negative) Ur Leukocyte Esterase Trace H (Negative) Hyaline Casts 13 H (0-2) /lpf Urine Mucus Few H (None) /hpf 01/17/22 01/17/22 01/17/22 Range/Units 16:25 19:29 19:48 WBC (3.8-10.6) k/uL RBC (4.30-5.90) m/uL Hgb (13.0-17.5) gm/dL Hct (39.0-53.0) % RDW (11.5-15.5) % Neutrophils # (Manual) (1.3-7.7) k/uL Monocytes # (Manual) (0-1.0) k/uL PT (9.0-12.0) sec INR (<1.2) Sodium 129 L (137-145) mmol/L Potassium 3.3 L (3.5-5.1) mmol/L Carbon Dioxide 17 L (22-30) mmol/L BUN 33 H (9-20) mg/dL Creatinine 1.42 H (0.66-1.25) mg/dL Glucose 181 H (74-99) mg/dL POC Glucose (mg/dL) 132 H (75-99) mg/dL Calcium 7.7 L (8.4-10.2) mg/dL Magnesium 1.5 L (1.6-2.3) mg/dL Total Protein 4.7 L (6.3-8.2) g/dL Albumin 2.3 L (3.5-5.0) g/dL Lipase <10 L (23-300) U/L Urine Protein (Negative) Ur Leukocyte Esterase (Negative) Hyaline Casts (0-2) /lpf Urine Mucus (None) /hpf
[2022-01-18 00:50] LABS: Anisocytosis Slight; HCT 38.6 % (39.0-53.0); HGB 12.1 gm/dL (13.0-17.5); Hypochromasia Moderate; MCH 31.4 pg (25.0-35.0); MCHC 31.5 g/dL (31.0-37.0); MCV 99.7 fL (80.0-100.0); Macrocytosis Slight; Mean Platelet Volume 7.3; Platelet Count 172 k/uL (150-450); RBC 3.87 m/uL (4.30-5.90); RDW 17.3 % (11.5-15.5); WBC 9.7 k/uL (3.8-10.6)
[2022-01-18 01:21] LABS: African American GFR (CKD) 72 (>60 ml/min/1.73 sqM); Anion Gap 6 mmol/L; Blood Urea Nitrogen 28 mg/dL (9-20); Calcium 7.1 mg/dL (8.4-10.2); Carbon Dioxide 16 mmol/L (22-30); Chloride 111 mmol/L (98-107); Glucose 99 mg/dL (74-99); Non-African American GFR(CKD) 62 (>60 ml/min/1.73 sqM); Potassium 3.2 mmol/L (3.5-5.1); Sodium 133 mmol/L (137-145)
[2022-01-18] MEDS ORDERED: traMADol 50 MG TAB PO PRN (03:44)
[2022-01-18] MEDS ORDERED: POTASSIUM CHLORIDE ER 20 MEQ TAB.ER PO STA (03:45)
[2022-01-18 07:42] LABS: Glucose,Whole Blood 72 mg/dL (75-99)
[2022-01-18] MEDS: AMIODARONE 200 MG TAB PO SCH (08:24)
[2022-01-18 08:58] LABS: Albumin 2.1 g/dL (3.5-5.0); Calcium 7.3 mg/dL (8.4-10.2); Potassium 4.1 mmol/L (3.5-5.1); Total Bilirubin 0.6 mg/dL (0.2-1.3); Total Protein 4.5 g/dL (6.3-8.2)
[2022-01-18] MEDS ORDERED: metroNIDAZOLE 500 MG TAB PO SCH (09:00)
[2022-01-18] MEDS ORDERED: APIXABAN 5 MG TAB PO SCH (09:00)
[2022-01-18 09:14] LABS: Anisocytosis Slight; Basophils # (A) 0.2 k/uL (0-0.2); Basophils % (A) 1 %; Eosinophils # (A) 0.2 k/uL (0-0.7); Eosinophils % (A) 2 %; HCT 39.8 % (39.0-53.0); HGB 11.7 gm/dL (13.0-17.5); Hypochromasia Marked; Lymphocytes # (A) 0.6 k/uL (1.0-4.8); Lymphocytes % (A) 5 %; MCH 30.7 pg (25.0-35.0); MCHC 29.4 g/dL (31.0-37.0); MCV 104.3 fL (80.0-100.0); Macrocytosis Moderate; Mean Platelet Volume 8.3; Monocytes # (A) 0.7 k/uL (0-1.0); Monocytes % (A) 6 %; Neutrophils # (A) 10.4 k/uL (1.3-7.7); Neutrophils % (A) 85 %; Platelet Count 176 k/uL (150-450); RBC 3.82 m/uL (4.30-5.90); RDW 16.6 % (11.5-15.5); WBC 12.3 k/uL (3.8-10.6)
[2022-01-18] MEDS: ESCITALOPRAM 20 MG TAB PO SCH (09:38)
[2022-01-18] MEDS: allopurinoL 100 MG TAB PO SCH (09:38)
[2022-01-18] MEDS: SODIUM BICARBONATE TAB 650 MG TAB PO SCH ×2 (09:38→22:10)
[2022-01-18] MEDS: SODIUM CHLORIDE 0.9% 1,000 ML IV SCH ×4 (09:39→23:44)
[2022-01-18] MEDS: metroNIDAZOLE-NS PMX 500 MG in SALINE 1 100ML.BAG IVPB SCH ×3 (09:59→23:45)
[2022-01-18] MEDS: MAGNESIUM SULFATE-D5W PMX 1 GM in DEXTROSE/WATER 1 100ML.BAG IVPB SCH ×2 (11:23→13:26)
[2022-01-18 11:25] LABS: Glucose,Whole Blood 72 mg/dL (75-99)
--- NOTE | 2022-01-18 11:30 | P.PN ---
Subjective Progress Note Date: 01/18/22 The patient is a 71-year-old male with a PMH of coronary artery disease status post multiple stents, type II DM, A. fib on Eliquis, and COPD, CHF (diastolic), [facility] who presents to the emergency room for abdominal pain and diarrhea. The patient reports that his symptoms started a week ago. He reports diffuse abdominal discomfort, 7 out of 10 on maximal intensity, aching and sharp in nature, with associated diarrhea. He reports loose BMs over the past 3-4 days. Denied nausea or vomiting. Also denied experiencing fever, chills, cough, chest pain, shortness of breath, or urinary complaints. Denied any changes in his diet. Reports that as a result of his symptoms, he has not been eating or drinking as much as usual. CT abdomen and pelvis revealed a distended large bowel, as well as findings consistent with nonspecific colitis. There was also an L1 compression fracture, which had progressed from prior study, as well as some interstitial infiltrates in the left posterior lung which were new. After evaluation had revealed a WBC count 12.9, and 12.2, sodium 129, potassium 3.3, CO2 17, BUN 33, creatinine 1.42 (previously 1.27 on 11/2021), lactic acid 2.0, proBNP 11,200, and troponin 0.012. The patient had persistent hypotension in the emergency room with systolic 84/53, and pulse 125. 01/18: Patient is seen today in the emergency center waiting for bed on the [facility] floor. Patient has had no vomiting. He is noted hiccups frequently. He has not had a bowel movement. Patient has not been seen by general surgery. We will increase diet to clear liquid and advance to full liquid if okay with general surgery. Continue IV fluids at 0.9 normal saline 75 mL per hour and Ativan and Flagyl IV piggyback every 8 hours. Patient has been afebrile, heart rate running between 109 and 129, blood pressure 100/60, pulse ox 100% on 3 L nasal cannula. Patient scheduled to receive amiodarone this morning. Patient verbalizes that he does not plan to return to [facility] at the time of discharge. Review Of Systems: Constitutional: No fever, no chills, no night sweats. No weight change. No weakness, fatigue or lethargy. No daytime sleepiness. EENT: No headache. No blurred vision or double vision, no loss of vision. No loss of Hearing, no ringing in the ears, no dizziness. No nasal drainage or congestion. No epistaxis. No sore throat. Lungs: No shortness of breath, cough, no sputum production. No wheezing. Cardiovascular: No chest pain, no lower extremity edema. No palpitations. No paroxysmal nocturnal dyspnea. No orthopnea. No lightheadedness or dizziness. No syncopal episodes. Abdominal: No abdominal pain. No nausea, vomiting. No diarrhea. No constipation. No bloody or tarry stools.. No loss of appetite. Genitourinary: No dysuria, increased frequency, urgency. No urinary retention. Musculoskeletal: No myalgias. No muscle weakness, no gait dysfunction, no frequent falls. No back pain. No neck pain. Integumentary: No wounds, no lesions. No rash or pruritus. No unusual bruising. No change in hair or nails. Neurologic: No aphasia. No facial droop. No change in mentation. No head injury. No headache. No paralysis. No paresthesia. Psychiatric: No depression. No anxiety. No mood swings. Endocrine: No abnormal blood sugars. No weight change. No excessive sweating or thirst. No cold intolerance. Physical examination: General: This is a 71-year-old male resting in bed in the emergency center. He appears to be in no acute distress. Head: atraumatic, normocephalic, symmetric Eyes: EOMI, no lid lag, anicteric sclera, pupils equal round reactive to light ENT: Nose and ears atraumatic, no thrush, no pharyngeal erythema Neck: No thyromegaly, no cervical lymphadenopathy, trachea midline, supple Mouth: no lip lesion, mucus membranes moist Cardiovascular: S1S2 reg, no murmur, positive posterior tibial pulse bilateral, no edema, capillary refill less than 2 seconds Lungs: CTA bilateral, no rhonchi, no rales , no accessory muscle use Abdominal: soft, mild diffuse tenderness, no guarding, no appreciable organom egaly, normal bowel sounds Ext: no gross muscle atrophy, muscle strength 3 out of 5 in all 4 extremities grossly, no contractures, Neuro: CN II-XI grossly intact, light touch intact all 4 extremities, finger to nose within normal limits, Psych: Alert, oriented, appropriate affect Assessment/plan Sepsis secondary to colitis -Patient will be started on Flagyl IV piggyback every 8 hours -Start clear liquid diet will -Gentle IVFs in setting of hx of CHF Hypokalemia -Replace and monitor Acute kidney injury, likely secondary to ongoing sepsis -Gentle IV hydration -Monitor BMP -Sodium bicarb Chronic persistent atrial fibrillation with previous cardioversion 2. Continue Toprol-XL Hypertension. Continue Toprol-XL. Hyperlipidemia. Hold atorvastatin 80 mg at bedtime Diabetes mellitus type 2. Hole Tradjenta and add NovoLog scale before meals and at bedtime History of stroke. Patient is on atorvastatin and eliquis for secondary prevention. Peripheral vascular disease with history of carotid stenosis. Continue atorvastatin and eliquis for secondary prevention. Chronic kidney disease stage III. Avoid nephrotoxic agents, monitor renal function. Anemia of chronic kidney disease. Chronic back pain. Continue Flexeril 10 mg at bedtime. Recurrent depression. Continue Lexapro 20 mg daily. Hypothyroidism. Continue levothyroxine 50 g daily. GI prophylaxis. Protonix IV daily DVT prophylaxis -Eliquis CODE STATUS: Full Code DISCHARGE PLAN TBD. Patient states that he does not plan to return to [facility]. Impression and plan of care have been directed as dictated by the signing physician. Luci Farrar nurse practitioner acting as scribe for signing physician. Objective - Vital Signs Vital signs: Vital Signs Temp 97.6 F 01/18/22 08:00 Pulse 114 H 01/18/22 08:00 Resp 16 01/18/22 08:00 BP 100/60 01/18/22 08:00 Pulse Ox 100 01/18/22 08:00 Intake & Output 01/17/22 01/18/22 01/18/22 18:59 06:59 18:59 Output Total 350 Balance -350 Weight 99.79 kg 99.79 kg Output: Urine 350 - Labs CBC & Chem 7: 01/18/22 07:02 01/18/22 07:02 Labs: Abnormal Lab Results - Last 24 Hours (Table) 01/17/22 01/17/22 01/17/22 Range/Units 16:25 16:25 16:25 WBC 12.9 H (3.8-10.6) k/uL RBC 3.97 L (4.30-5.90) m/uL Hgb 12.2 L D (13.0-17.5) gm/dL Hct 38.1 L (39.0-53.0) % RDW 17.5 H (11.5-15.5) % Neutrophils # (Manual) 10.70 H (1.3-7.7) k/uL Monocytes # (Manual) 1.03 H (0-1.0) k/uL PT 14.4 H (9.0-12.0) sec INR 1.4 H (<1.2) Sodium (137-145) mmol/L Potassium (3.5-5.1) mmol/L Chloride (98-107) mmol/L Carbon Dioxide (22-30) mmol/L BUN (9-20) mg/dL Creatinine (0.66-1.25) mg/dL Glucose (74-99) mg/dL POC Glucose (mg/dL) (75-99) mg/dL Calcium (8.4-10.2) mg/dL Magnesium (1.6-2.3) mg/dL Total Protein (6.3-8.2) g/dL Albumin (3.5-5.0) g/dL Lipase (23-300) U/L Urine Protein Trace H (Negative) Ur Leukocyte Esterase Trace H (Negative) Hyaline Casts 13 H (0-2) /lpf Urine Mucus Few H (None) /hpf 01/17/22 01/17/22 01/17/22 Range/Units 16:25 19:29 19:48 WBC (3.8-10.6) k/uL RBC (4.30-5.90) m/uL Hgb (13.0-17.5) gm/dL Hct (39.0-53.0) % RDW (11.5-15.5) % Neutrophils # (Manual) (1.3-7.7) k/uL Monocytes # (Manual) (0-1.0) k/uL PT (9.0-12.0) sec INR (<1.2) Sodium 129 L (137-145) mmol/L Potassium 3.3 L (3.5-5.1) mmol/L Chloride (98-107) mmol/L Carbon Dioxide 17 L (22-30) mmol/L BUN 33 H (9-20) mg/dL Creatinine 1.42 H (0.66-1.25) mg/dL Glucose 181 H (74-99) mg/dL POC Glucose (mg/dL) 132 H (75-99) mg/dL Calcium 7.7 L (8.4-10.2) mg/dL Magnesium 1.5 L (1.6-2.3) mg/dL Total Protein 4.7 L (6.3-8.2) g/dL Albumin 2.3 L (3.5-5.0) g/dL Lipase <10 L (23-300) U/L Urine Protein (Negative) Ur Leukocyte Esterase (Negative) Hyaline Casts (0-2) /lpf Urine Mucus (None) /hpf 01/18/22 01/18/22 01/18/22 Range/Units 00:39 00:39 07:36 WBC (3.8-10.6) k/uL RBC 3.87 L (4.30-5.90) m/uL Hgb 12.1 L (13.0-17.5) gm/dL Hct 38.6 L (39.0-53.0) % RDW 17.3 H (11.5-15.5) % Neutrophils # (Manual) (1.3-7.7) k/uL Monocytes # (Manual) (0-1.0) k/uL PT (9.0-12.0) sec INR (<1.2) Sodium 133 L (137-145) mmol/L Potassium 3.2 L (3.5-5.1) mmol/L Chloride 111 H (98-107) mmol/L Carbon Dioxide 16 L (22-30) mmol/L BUN 28 H (9-20) mg/dL Creatinine (0.66-1.25) mg/dL Glucose (74-99) mg/dL POC Glucose (mg/dL) 72 L (75-99) mg/dL Calcium 7.1 L (8.4-10.2) mg/dL Magnesium (1.6-2.3) mg/dL Total Protein (6.3-8.2) g/dL Albumin (3.5-5.0) g/dL Lipase (23-300) U/L Urine Protein (Negative) Ur Leukocyte Esterase (Negative) Hyaline Casts (0-2) /lpf Urine Mucus (None) /hpf
[2022-01-18] MEDS: INSULIN ASPART (NovoLOG) 100 UNIT/ML VIAL SQ SCH ×3 (13:18→21:50)
--- NOTE | 2022-01-18 13:59 | P.GSCN ---
History of Present Illness Consult date: 01/18/22 History of present illness: CHIEF COMPLAINT: Nausea vomiting and diarrhea HISTORY OF PRESENT ILLNESS: This is a 71-year-old male who presented with left lower abdominal pain with nausea vomiting and diarrhea. For the past 6 days. He reports that he hasn't vomited and few days. Last episode of diarrhea was yesterday. White count was elevated on admission at 12.9. He also was hypotensive and tachycardic. Computed tomography scan abdomen and pelvis with ileus versus colitis. Mrs. yeung has started him on Flagyl. Patient reports having previous incisional hernia repair with Dr. vo. Patient is on Eliquis for his atrial fibrillation. Last dose was taken yesterday. He does report a prior colonoscopy about a year ago with noncancerous colon polyps. He denies any fever chills or sweats. Patient denies any blood in his stools or black stools. Patient seen and examined with Dr. vo PAST MEDICAL HISTORY: COPD, CVA/TIA, Diabetes Mellitus, GERD/Reflux, Hyperlipidemia, Hypertension, Myocardial Infarction ([place]), Renal Disease, CVA 1997, carotid artery disease, diabetes mellitus, chronic back pain, tenosynovitis involving the wrists and stark ds bilaterally, chronic renal failure, mild aortic stenosis, myocardial infarction PAST SURGICAL HISTORY: Coronary Bypass/CABG, Heart Catheterization With Stent, Hernia Repair MEDICATIONS: See list. ALLERGIES: See list. SOCIAL HISTORY: No illicit drug use. REVIEW OF SYSTEMS: CONSTITUTIONAL: Denies fever or chills. HEENT: Denies blurred vision, vision changes, or eye pain. Denies hemoptysis CARDIOVASCULAR: Denies chest pain or pressure. RESPIRATORY: No shortness of breath. GASTROINTESTINAL: See HPI for pertinent findings HEMATOLOGIC: Denies bleeding disorders. GENITOURINARY: Denies any blood in urine or increased urinary frequency. SKIN: Denies pruitis. Denies rash. PHYSICAL EXAM: VITAL SIGNS: Reviewed GENERAL: Well-developed in no acute distress. HEENT: No sclera icterus. Extraocular movements grossly intact. Moist buccal mucosa. Head is atraumatic, normocephalic. No nasal drainage. ABDOMEN: Soft. Nondistended. Left lower abdominal tenderness with palpation NEUROLOGIC: Alert and oriented. Cranial nerves II through XII grossly intact. LABORATORY DATA: WBC 12.9 with repeat 12.3 hemoglobin 11.7 platelets 176 Sodium is 137 potassium 3.2 now at 4.1 creatinine 1.14 Magnesium is 1.5 LFTs normal IMAGING: Computed tomography scan abdomen and pelvis distended large bowel with fluid levels down to the rectum consistent with ileus and diarrhea. There is some m ild fat stranding around the descending colon and proximal similar: This consistent with some nonspecific colitis. There is a L1 compression fracture that has progressed compared to old exam. There is some interstitial infiltrate and atelectasis left posterior lung base. ASSESSMENT: 1. Colitis 2. Abdominal pain with nausea vomiting and diarrhea 3. History of atrial fibrillation anticoagulated with Eliquis at home 4. Hypokalemia and hypomagnesemia PLAN: -Patient tentatively scheduled for colonoscopy on , 01/20/[address] Vo -Patient can have clear liquids to full liquids today. Then clear liquids tomorrow -Continue the IV Flagyl -Electrolytes replaced -Continue IV fluids -Continue supportive care -Discontinue Eliquis for now Thank you for this consultation Physician Patrol Supervisor note has been reviewed by physician. Signing provider agrees with the documented findings, assessment, and plan of care. Past Medical History Past Medical History: COPD, CVA/TIA, Diabetes Mellitus, GERD/Reflux, Hyperlipidemia, Hypertension, Myocardial Infarction ([place]), Renal Disease Additional Past Medical History / Comment(s): COPD, CVA 1997, carotid artery disease, diabetes mellitus, chronic back pain, tenosynovitis involving the wrists and hands bilaterally, chronic renal failure, mild aortic stenosis with a peak gradient across the aortic valve of 70 mmHg; three heart attacks, last in 2001 Last Myocardial Infarction Date:: 2001 History of Any Multi-Drug Resistant Organisms: None Reported Past Surgical History: Coronary Bypass/CABG, Heart Catheterization With Stent, Hernia Repair Additional Past Surgical History / Comment(s): March 1998 Cabg TRIPLE vessel by Dr. Ge. [facility] with 3 stents. 4th stent 2016 at [place], COLONOSCOPY Past Anesthesia/Blood Transfusion Reactions: No Reported Reaction Date of Last Stent Placement:: March 19982015 Past Psychological History: No Psychological Hx Reported Additional Psychological History / Comment(s): Pt lives with his in their home. He is normally independent. He drives a car. Was to be discharged from [facility] and ended up admitted to the hospital. Smoking Status: Former smoker Past Alcohol Use History: None Reported Additional Past Alcohol Use History / Comment(s): QUIT SMOKING 1997 Past Drug Use History: None Reported - Past Family History Father Family Medical History: Cancer Additional Family Medical History / Comment(s): Leukemia Father of leukemia at age 32yrs Mother Family Medical History: COPD Additional Family Medical History / Comment(s): Mother was 76 when she . She had mental illness. Sister(s) Family Medical History: Coronary Artery Disease (CAD), CVA/TIA Brother(s) Family Medical History: Coronary Artery Disease (CAD) Medications and Allergies Home Medications Medication Instructions Recorded Confirmed Type allopurinoL [Zyloprim] 100 mg PO DAILY@0900 02/04/17 01/17/22 History Amiodarone [Cordarone] 200 mg PO DAILY@89911/02/21 01/17/22 History Apixaban [Eliquis] 5 mg PO BID@0900,209911/02/21 01/17/22 History Escitalopram [Lexapro] 20 mg PO DAILY@89911/02/21 01/17/22 History Linagliptin [Tradjenta] 5 mg PO DAILY@00 11/02/21 01/17/22 History Sennosides/Docusate Sodium [Senna 1 tab PO DAILY@0900 11/02/21 01/17/22 History Plus 8.6-50 mg Tablet] Biotene Dry Mouth Liquid Mouthwash 5 ml PO Q1H PRN 12/13/21 01/17/22 History Pilocarpine HCl [Salagen] 5 mg PO TID@0600,1300,209912/13/21 01/17/22 History Calcium Carbonate/Vitamin D3 1 tab PO BID@0900,209901/17/22 01/17/22 History [Calcium 500 mg Chewable Tablet] Furosemide [Lasix] 40 mg PO DAILY@89901/17/22 01/17/22 History Insulin Lispro [humaLOG Kwikpen] See Protocol SQ ACHS 01/17/22 01/17/22 History Ipratropium-Albuterol Nebulize 3 ml INHALATION RT-Q6H PRN 01/17/22 01/17/22 History [Duoneb 0.5 mg-3 mg/3 ml Soln] Levothyroxine Sodium [Synthroid] 50 mcg PO HS@209901/17/22 01/17/22 History Loperamide [Imodium] 2 mg PO DAILY PRN 01/17/22 01/17/22 History Megestrol Acetate 400 mg PO BID@0900,209901/17/22 01/17/22 History Melatonin 5 mg PO HS@209901/17/22 01/17/22 History Sodium Bicarbonate Tab 650 mg PO BID@0900,209901/17/22 01/17/22 History metroNIDAZOLE [Flagyl] 500 mg PO TID@0900,1300,209901/17/22 01/17/22 History traMADol HCL 50 mg PO Q6H PRN 01/17/22 01/17/22 History Allergies Allergy/AdvReac Type Severity Reaction Status Date / Time codeine Allergy Unknown Verified 01/17/22 18:40 Childhood morphine Allergy Unknown Verified 01/17/22 18:40 Childhood Surgical - Exam Vital Signs Pulse Resp BP Pulse Ox 87 18 81/56 100 01/17/22 16:08 01/17/22 16:08 01/17/22 16:08 01/17/22 16:08 Results - Labs 01/18/22 07:02 01/18/22 07:02 Abnormal Lab Results - Last 24 Hours (Table) 01/17/22 01/17/22 01/17/22 Range/Units 16:25 16:25 16:25 WBC 12.9 H (3.8-10.6) k/uL RBC 3.97 L (4.30-5.90) m/uL Hgb 12.2 L D (13.0-17.5) gm/dL Hct 38.1 L (39.0-53.0) % MCV (80.0-100.0) fL MCHC (31.0-37.0) g/dL RDW 17.5 H (11.5-15.5) % Neutrophils # (Manual) 10.70 H (1.3-7.7) k/uL Monocytes # (Manual) 1.03 H (0-1.0) k/uL PT 14.4 H (9.0-12.0) sec INR 1.4 H (<1.2) Sodium (137-145) mmol/L Potassium (3.5-5.1) mmol/L Chloride (98-107) mmol/L Carbon Dioxide (22-30) mmol/L BUN (9-20) mg/dL Creatinine (0.66-1.25) mg/dL Glucose (74-99) mg/dL POC Glucose (mg/dL) (75-99) mg/dL Calcium (8.4-10.2) mg/dL Magnesium (1.6-2.3) mg/dL Total Protein (6.3-8.2) g/dL Albumin (3.5-5.0) g/dL Lipase (23-300) U/L Urine Protein Trace H (Negative) Ur Leukocyte Esterase Trace H (Negative) Hyaline Casts 13 H (0-2) /lpf Urine Mucus Few H (None) /hpf 01/17/22 01/17/22 01/17/22 Range/Units 16:25 19:29 19:48 WBC (3.8-10.6) k/uL RBC (4.30-5.90) m/uL Hgb (13.0-17.5) gm/dL Hct (39.0-53.0) % MCV (80.0-100.0) fL MCHC (31.0-37.0) g/dL RDW (11.5-15.5) % Neutrophils # (Manual) (1.3-7.7) k/uL Monocytes # (Manual) (0-1.0) k/uL PT (9.0-12.0) sec INR (<1.2) Sodium 129 L (137-145) mmol/L Potassium 3.3 L (3.5-5.1) mmol/L Chloride (98-107) mmol/L Carbon Dioxide 17 L (22-30) mmol/L BUN 33 H (9-20) mg/dL Creatinine 1.42 H (0.66-1.25) mg/dL Glucose 181 H (74-99) mg/dL POC Glucose (mg/dL) 132 H (75-99) mg/dL Calcium 7.7 L (8.4-10.2) mg/dL Magnesium 1.5 L (1.6-2.3) mg/dL Total Protein 4.7 L (6.3-8.2) g/dL Albumin 2.3 L (3.5-5.0) g/dL Lipase <10 L (23-300) U/L Urine Protein (Negative) Ur Leukocyte Esterase (Negative) Hyaline Casts (0-2) /lpf Urine Mucus (None) /hpf 01/18/22 01/18/22 01/18/22 Range/Units 00:39 00:39 07:02 WBC 12.3 H (3.8-10.6) k/uL RBC 3.87 L 3.82 L (4.30-5.90) m/uL Hgb 12.1 L 11.7 L (13.0-17.5) gm/dL Hct 38.6 L (39.0-53.0) % MCV 104.3 H (80.0-100.0) fL MCHC 29.4 L (31.0-37.0) g/dL RDW 17.3 H 16.6 H (11.5-15.5) % Neutrophils # (Manual) (1.3-7.7) k/uL Monocytes # (Manual) (0-1.0) k/uL PT (9.0-12.0) sec INR (<1.2) Sodium 133 L (137-145) mmol/L Potassium 3.2 L (3.5-5.1) mmol/L Chloride 111 H (98-107) mmol/L Carbon Dioxide 16 L (22-30) mmol/L BUN 28 H (9-20) mg/dL Creatinine (0.66-1.25) mg/dL Glucose (74-99) mg/dL POC Glucose (mg/dL) (75-99) mg/dL Calcium 7.1 L (8.4-10.2) mg/dL Magnesium (1.6-2.3) mg/dL Total Protein (6.3-8.2) g/dL Albumin (3.5-5.0) g/dL Lipase (23-300) U/L Urine Protein (Negative) Ur Leukocyte Esterase (Negative) Hyaline Casts (0-2) /lpf Urine Mucus (None) /hpf 01/18/22 01/18/22 01/18/22 Range/Units 07:02 07:02 07:36 WBC (3.8-10.6) k/uL RBC (4.30-5.90) m/uL Hgb (13.0-17.5) gm/dL Hct (39.0-53.0) % MCV (80.0-100.0) fL MCHC (31.0-37.0) g/dL RDW (11.5-15.5) % Neutrophils # (Manual) (1.3-7.7) k/uL Monocytes # (Manual) (0-1.0) k/uL PT (9.0-12.0) sec INR (<1.2) Sodium (137-145) mmol/L Potassium (3.5-5.1) mmol/L Chloride 112 H (98-107) mmol/L Carbon Dioxide 16 L (22-30) mmol/L BUN 25 H (9-20) mg/dL Creatinine (0.66-1.25) mg/dL Glucose (74-99) mg/dL POC Glucose (mg/dL) 72 L (75-99) mg/dL Calcium 7.3 L (8.4-10.2) mg/dL Magnesium 1.5 L (1.6-2.3) mg/dL Total Protein 4.5 L (6.3-8.2) g/dL Albumin 2.1 L (3.5-5.0) g/dL Lipase (23-300) U/L Urine Protein (Negative) Ur Leukocyte Esterase (Negative) Hyaline Casts (0-2) /lpf Urine Mucus (None) /hpf Diabetes panel 01/17/22 01/18/22 01/18/22 Range/Units 16:25 00:39 07:02 Sodium 129 L 133 L 137 (137-145) mmol/L Potassium 3.3 L 3.2 L 4.1 (3.5-5.1) mmol/L Chloride 105 111 H 112 H (98-107) mmol/L Carbon Dioxide 17 L 16 L 16 L (22-30) mmol/L BUN 33 H 28 H 25 H (9-20) mg/dL Creatinine 1.42 H 1.19 1.14 (0.66-1.25) mg/dL Glucose 181 H 99 77 (74-99) mg/dL Calcium 7.7 L 7.1 L 7.3 L (8.4-10.2) mg/dL AST 19 18 (17-59) U/L ALT 17 15 (4-49) U/L Alkaline Phosphatase 106 85 (38-126) U/L Total Protein 4.7 L 4.5 L (6.3-8.2) g/dL Albumin 2.3 L 2.1 L (3.5-5.0) g/dL Calcium panel 01/17/22 01/18/22 01/18/22 Range/Units 16:25 00:39 07:02 Calcium 7.7 L 7.1 L 7.3 L (8.4-10.2) mg/dL Albumin 2.3 L 2.1 L (3.5-5.0) g/dL Pituitary panel 01/17/22 01/18/22 01/18/22 Range/Units 16:25 00:39 07:02 Sodium 129 L 133 L 137 (137-145) mmol/L Potassium 3.3 L 3.2 L 4.1 (3.5-5.1) mmol/L Chloride 105 111 H 112 H (98-107) mmol/L Carbon Dioxide 17 L 16 L 16 L (22-30) mmol/L BUN 33 H 28 H 25 H (9-20) mg/dL Creatinine 1.42 H 1.19 1.14 (0.66-1.25) mg/dL Glucose 181 H 99 77 (74-99) mg/dL Calcium 7.7 L 7.1 L 7.3 L (8.4-10.2) mg/dL Adrenal panel 01/17/22 01/18/22 01/18/22 Range/Units 16:25 00:39 07:02 Sodium 129 L 133 L 137 (137-145) mmol/L Potassium 3.3 L 3.2 L 4.1 (3.5-5.1) mmol/L Chloride 105 111 H 112 H (98-107) mmol/L Carbon Dioxide 17 L 16 L 16 L (22-30) mmol/L BUN 33 H 28 H 25 H (9-20) mg/dL Creatinine 1.42 H 1.19 1.14 (0.66-1.25) mg/dL Glucose 181 H 99 77 (74-99) mg/dL Calcium 7.7 L 7.1 L 7.3 L (8.4-10.2) mg/dL Total Bilirubin 0.9 0.6 (0.2-1.3) mg/dL AST 19 18 (17-59) U/L ALT 17 15 (4-49) U/L Alkaline Phosphatase 106 85 (38-126) U/L Total Protein 4.7 L 4.5 L (6.3-8.2) g/dL Albumin 2.3 L 2.1 L (3.5-5.0) g/dL
[2022-01-18 16:31] LABS: Glucose,Whole Blood 74 mg/dL (75-99)
[2022-01-18 21:06] LABS: Glucose,Whole Blood 93 mg/dL (75-99)
[2022-01-18] MEDS: LEVOTHYROXINE 50 MCG TAB PO SCH (22:10)
[2022-01-19 09:32] LABS: African American GFR (CKD) 85 (>60 ml/min/1.73 sqM); Anion Gap 7 mmol/L; Blood Urea Nitrogen 19 mg/dL (9-20); Calcium 7.5 mg/dL (8.4-10.2); Carbon Dioxide 14 mmol/L (22-30); Chloride 114 mmol/L (98-107); Glucose 81 mg/dL (74-99); Non-African American GFR(CKD) 73 (>60 ml/min/1.73 sqM); Sodium 135 mmol/L (137-145)
[2022-01-19 09:33] LABS: Glucose,Whole Blood 82 mg/dL (75-99)
[2022-01-19 09:33] LABS: Anisocytosis Slight; Basophils # (A) 0.1 k/uL (0-0.2); Basophils % (A) 1 %; Eosinophils # (A) 0.2 k/uL (0-0.7); Eosinophils % (A) 2 %; HCT 39.9 % (39.0-53.0); HGB 12.4 gm/dL (13.0-17.5); Hypochromasia Marked; Lymphocytes # (A) 0.7 k/uL (1.0-4.8); Lymphocytes % (A) 6 %; MCH 31.6 pg (25.0-35.0); MCHC 31.1 g/dL (31.0-37.0); MCV 101.6 fL (80.0-100.0); Macrocytosis Moderate; Mean Platelet Volume 7.9; Monocytes # (A) 0.4 k/uL (0-1.0); Monocytes % (A) 3 %; Neutrophils # (A) 9.9 k/uL (1.3-7.7); Neutrophils % (A) 87 %; Platelet Count 199 k/uL (150-450); RBC 3.93 m/uL (4.30-5.90); RDW 17.2 % (11.5-15.5); WBC 11.4 k/uL (3.8-10.6)
[2022-01-19 09:36] LABS: Magnesium 1.9 mg/dL (1.6-2.3); Potassium 4.3 mmol/L (3.5-5.1)
[2022-01-19] MEDS: INSULIN ASPART (NovoLOG) 100 UNIT/ML VIAL SQ SCH ×4 (09:54→21:47)
[2022-01-19] MEDS: allopurinoL 100 MG TAB PO SCH (10:24)
[2022-01-19] MEDS: AMIODARONE 200 MG TAB PO SCH (10:24)
[2022-01-19] MEDS: ESCITALOPRAM 20 MG TAB PO SCH (10:24)
[2022-01-19] MEDS: metroNIDAZOLE-NS PMX 500 MG in SALINE 1 100ML.BAG IVPB SCH ×3 (10:24→23:45)
[2022-01-19] MEDS: SODIUM BICARBONATE TAB 650 MG TAB PO SCH ×2 (10:24→23:44)
[2022-01-19] MEDS ORDERED: PEG 3350-NA SULF,BICARB,CL/KCL 4,000 ML BOTTLE PO ONE (10:30)
[2022-01-19] MEDS: PANTOPRAZOLE 40 MG/10 ML VIAL IVP SCH (11:03)
[2022-01-19 11:19] LABS: Glucose,Whole Blood 80 mg/dL (75-99)
--- NOTE | 2022-01-19 12:06 | P.PN ---
Subjective Progress Note Date: 01/19/22 The patient is a 71-year-old male with a PMH of coronary artery disease status post multiple stents, type II DM, A. fib on Eliquis, and COPD, CHF (diastolic), resident of care home who presents to the emergency room for abdominal pain and diarrhea. The patient reports that his symptoms started a week ago. He reports diffuse abdominal discomfort, 7 out of 10 on maximal intensity, aching and sharp in nature, with associated diarrhea. He reports loose BMs over the past 3-4 days. Denied nausea or vomiting. Also denied experiencing fever, chills, cough, chest pain, shortness of breath, or urinary complaints. Denied any changes in his diet. Reports that as a result of his symptoms, he has not been eating or drinking as much as usual. CT abdomen and pelvis revealed a distended large bowel, as well as findings consistent with nonspecific colitis. There was also an L1 compression fracture, which had progressed from prior study, as well as some interstitial infiltrates in the left posterior lung which were new. After evaluation had revealed a WBC count 12.9, and 12.2, sodium 129, potassium 3.3, CO2 17, BUN 33, creatinine 1.42 (previously 1.27 on 11/2021), lactic acid 2.0, proBNP 11,200, and troponin 0.012. The patient had persistent hypotension in the emergency room with systolic 84/53, and pulse 125. 01/18: Patient is seen today in the emergency center waiting for bed on the [facility] floor. Patient has had no vomiting. He is noted hiccups frequently. He has not had a bowel movement. Patient has not been seen by general surgery. We will increase diet to clear liquid and advance to full liquid if okay with general surgery. Continue IV fluids at 0.9 normal saline 75 mL per hour and Ativan and Flagyl IV piggyback every 8 hours. Patient has been afebrile, heart rate running between 109 and 129, blood pressure 100/60, pulse ox 100% on 3 L nasal cannula. Patient scheduled to receive amiodarone this morning. Patient [facility]. 01/19: Patient is seen today on the [facility] floor. Patient has been seen by general surgery and scheduled for colonoscopy on . Patient denies having nausea vomiting is not had a bowel movement. He is currently on a clear liquid diet. Repeat blood work reveals WBC 11.4, hemoglobin 12.4, platelet count 199. Sodium 135, potassium 4.3, chloride 114, CO2 14, BUN 19 and creatinine 1.04. Blood Glucose Running between 80 and 93. Review Of Systems: Constitutional: No fever, no chills, no night sweats. No weight change. No weakness, fatigue or lethargy. No daytime sleepiness. EENT: No headache. No blurred vision or double vision, no loss of vision. No loss of Hearing, no ringing in the ears, no dizziness. No nasal drainage or congestion. No epistaxis. No sore throat. Lungs: No shortness of breath, cough, no sputum production. No wheezing. Cardiovascular: No chest pain, no lower extremity edema. No palpitations. No paroxysmal nocturnal dyspnea. No orthopnea. No lightheadedness or dizziness. No syncopal episodes. Abdominal: No abdominal pain. No nausea, vomiting. No diarrhea. reports constipation. No bloody or tarry stools.. No loss of appetite. Genitourinary: No dysuria, increased frequency, urgency. No urinary retention. Musculoskeletal: No myalgias. No muscle weakness, no gait dysfunction, no frequent falls. No back pain. No neck pain. Integumentary: No wounds, no lesions. No rash or pruritus. No unusual bruising. No change in hair or nails. Neurologic: No aphasia. No facial droop. No change in mentation. No head injury. No headache. No paralysis. No paresthesia. Psychiatric: No depression. No anxiety. No mood swings. Endocrine: No abnormal blood sugars. No weight change. No excessive sweating or thirst. No cold intolerance. Physical examination: General: This is a 71-year-old male resting in bed He appears to be in no acute distress. Head: atraumatic, normocephalic, symmetric Eyes: EOMI, no lid lag, anicteric sclera, pupils equal round reactive to light ENT: Nose and ears atraumatic, no thrush, no pharyngeal erythema Neck: No thyromegaly, no cervical lymphadenopathy, trachea midline, supple Mouth: no lip lesion, mucus membranes moist Cardiovascular: S1S2 reg, no murmur, positive posterior tibial pulse bilateral, no edema, capillary refill less than 2 seconds Lungs: CTA bilateral, no rhonchi, no rales , no accessory muscle use Abdominal: soft, mild diffuse tenderness, no guarding, no appreciable organomegaly, normal bowel sounds Ext: no gross muscle atrophy, muscle strength 3 out of 5 in all 4 extremities grossly, no contractures, Neuro: CN II-XI grossly intact, light touch intact all 4 extremities, finger to nose within normal limits, Psych: Alert, oriented, appropriate affect Assessment/plan Sepsis secondary to colitis -Continue on Flagyl IV piggyback every 8 hours -Start clear liquid diet will -Gentle IVFs in setting of hx of CHF -Colonoscopy scheduled tomorrow Hypokalemia -Replace and monitor Acute kidney injury, likely secondary to ongoing sepsis -Gentle IV hydration -Monitor BMP -Sodium bicarb Chronic persistent atrial fibrillation with previous cardioversion 2. Continue Toprol-XL Hypertension. Continue Toprol-XL. Hyperlipidemia. Hold atorvastatin 80 mg at bedtime Diabetes mellitus type 2. Hole Tradjenta and add NovoLog scale before meals and at bedtime History of stroke. Patient is on atorvastatin and eliquis for secondary prevention. Peripheral vascular disease with history of carotid stenosis. Continue atorvastatin and eliquis for secondary prevention. Chronic kidney disease stage III. Avoid nephrotoxic agents, monitor renal function. Anemia of chronic kidney disease. Chronic back pain. Continue Flexeril 10 mg at bedtime. Recurrent depression. Continue Lexapro 20 mg daily. Hypothyroidism. Continue levothyroxine 50 g daily. GI prophylaxis. Protonix IV daily DVT prophylaxis -Eliquis CODE STATUS: Full Code DISCHARGE PLAN TBD. Patient states that he does not plan to return to [facility]. Consult with PT and OT. Impression and plan of care have been directed as dictated by the signing physician. Luci Farrar nurse practitioner acting as scribe for signing physician. Objective - Vital Signs Vital signs: Vital Signs Temp 97.2 F L 01/19/22 05:44 Pulse 119 H 01/19/22 08:03 Resp 18 01/19/22 08:03 BP 102/68 01/19/22 08:03 Pulse Ox 100 01/19/22 08:03 Intake & Output 01/18/22 01/19/22 01/19/22 18:59 06:59 18:59 Output Total 700 Balance -700 Weight 99.79 kg Output: Urine 700 - Labs CBC & Chem 7: 01/19/22 08:26 01/19/22 08:26 Labs: Abnormal Lab Results - Last 24 Hours (Table) 01/18/22 01/18/22 01/18/22 Range/Units 07:02 07:02 07:02 WBC 12.3 H (3.8-10.6) k/uL RBC 3.82 L (4.30-5.90) m/uL Hgb 11.7 L (13.0-17.5) gm/dL MCV 104.3 H (80.0-100.0) fL MCHC 29.4 L (31.0-37.0) g/dL RDW 16.6 H (11.5-15.5) % Neutrophils # 10.4 H (1.3-7.7) k/uL Lymphocytes # 0.6 L (1.0-4.8) k/uL Chloride 112 H (98-107) mmol/L Carbon Dioxide 16 L (22-30) mmol/L BUN 25 H (9-20) mg/dL POC Glucose (mg/dL) (75-99) mg/dL Calcium 7.3 L (8.4-10.2) mg/dL Magnesium 1.5 L (1.6-2.3) mg/dL Total Protein 4.5 L (6.3-8.2) g/dL Albumin 2.1 L (3.5-5.0) g/dL 01/18/22 01/18/22 Range/Units 11:24 16:27 WBC (3.8-10.6) k/uL RBC (4.30-5.90) m/uL Hgb (13.0-17.5) gm/dL MCV (80.0-100.0) fL MCHC (31.0-37.0) g/dL RDW (11.5-15.5) % Neutrophils # (1.3-7.7) k/uL Lymphocytes # (1.0-4.8) k/uL Chloride (98-107) mmol/L Carbon Dioxide (22-30) mmol/L BUN (9-20) mg/dL POC Glucose (mg/dL) 72 L 74 L (75-99) mg/dL Calcium (8.4-10.2) mg/dL Magnesium (1.6-2.3) mg/dL Total Protein (6.3-8.2) g/dL Albumin (3.5-5.0) g/dL Microbiology - Last 24 Hours (Table) 01/17/22 16:25 Blood Culture - Preliminary Blood No Growth after 24 hours
--- NOTE | 2022-01-19 13:32 | P.PN ---
Subjective Progress Note Date: 01/19/22 CHIEF COMPLAINT: Nausea, vomiting and diarrhea HISTORY OF PRESENT ILLNESS: Surgical service is following regards to patient's colitis. He reports no further nausea or vomiting. His diarrhea has resolved. He has minimal left lower quadrant abdominal pain. He reports t patient did have some tachycardia heart rate of 120 pounds down to 80 hat his pain has improved greatly since yesterday. Afebrile. WBC is 11.4 hemoglobin 12.4 platelets 199 creatinine 1.04 magnesium 1.9 potassium 4.3 PHYSICAL EXAM: VITAL SIGNS: Reviewed. GENERAL: Well-developed in no acute distress. HEENT: No sclera icterus. Extraocular movements grossly intact. Moist buccal mucosa. Head is atraumatic, normocephalic. ABDOMEN: Soft. Nondistended. Minimal tenderness to palpation left lower quadrant NEUROLOGIC: Alert and oriented. Cranial nerves II through XII grossly intact. ASSESSMENT: 1. Colitis 2. Abdominal pain with nausea vomiting and diarrhea 3. History of atrial fibrillation anticoagulated with Eliquis at home 4. Hypokalemia and hypomagnesemia resolved PLAN: -Patient scheduled for colonoscopy on , 01/20/[address] Sam -Nothing by mouth after midnight -Start GoLYTELY prep today -Continue clear liquid diet for today -Continue supportive care -Continue IV Flagyl -Continue to hold Eliquis Physician Placement Interviewer note has been reviewed by physician. Signing provider agrees with the documented findings, assessment, and plan of care. Objective - Vital Signs Vital signs: Vital Signs Temp 97.6 F 01/19/22 09:26 Pulse 80 01/19/22 09:26 Resp 18 01/19/22 09:26 BP 106/73 01/19/22 09:26 Pulse Ox 90 L 01/19/22 09:26 Intake & Output 01/18/22 01/19/22 01/19/22 18:59 06:59 18:59 Output Total 700 Balance -700 Weight 99.79 kg Output: Urine 700 - Labs CBC & Chem 7: 01/19/22 08:26 01/19/22 08:26 Labs: Abnormal Lab Results - Last 24 Hours (Table) 01/18/22 01/19/22 01/19/22 Range/Units 16:27 08:26 08:26 WBC 11.4 H (3.8-10.6) k/uL RBC 3.93 L (4.30-5.90) m/uL Hgb 12.4 L (13.0-17.5) gm/dL MCV 101.6 H (80.0-100.0) fL RDW 17.2 H (11.5-15.5) % Neutrophils # 9.9 H (1.3-7.7) k/uL Lymphocytes # 0.7 L (1.0-4.8) k/uL Sodium 135 L (137-145) mmol/L Chloride 114 H (98-107) mmol/L Carbon Dioxide 14 L (22-30) mmol/L POC Glucose (mg/dL) 74 L (75-99) mg/dL Calcium 7.5 L (8.4-10.2) mg/dL Microbiology - Last 24 Hours (Table) 01/17/22 16:25 Blood Culture - Preliminary Blood No Growth after 24 hours
[2022-01-19 16:36] LABS: Glucose,Whole Blood 86 mg/dL (75-99)
[2022-01-19] MEDS: SODIUM CHLORIDE 0.9% 1,000 ML IV SCH (16:59)
[2022-01-19 21:35] LABS: Glucose,Whole Blood 97 mg/dL (75-99)
[2022-01-19] MEDS: LEVOTHYROXINE 50 MCG TAB PO SCH (23:45)
[2022-01-20] MEDS: SODIUM CHLORIDE 0.9% 1,000 ML IV SCH ×2 (04:59→19:32)
[2022-01-20 07:03] LABS: Glucose,Whole Blood 92 mg/dL (75-99)
[2022-01-20] MEDS: INSULIN ASPART (NovoLOG) 100 UNIT/ML VIAL SQ SCH ×4 (09:02→22:29)
[2022-01-20] MEDS: PANTOPRAZOLE 40 MG/10 ML VIAL IVP SCH (09:04)
[2022-01-20] MEDS: ESCITALOPRAM 20 MG TAB PO SCH (09:04)
[2022-01-20] MEDS: SODIUM BICARBONATE TAB 650 MG TAB PO SCH ×2 (09:04→22:35)
[2022-01-20] MEDS: AMIODARONE 200 MG TAB PO SCH (09:04)
[2022-01-20] MEDS: metroNIDAZOLE-NS PMX 500 MG in SALINE 1 100ML.BAG IVPB SCH ×3 (09:04→22:34)
[2022-01-20] MEDS: allopurinoL 100 MG TAB PO SCH (09:04)
[2022-01-20 10:05] LABS: ALT 10 U/L (4-49); AST 22 U/L (17-59); African American GFR (CKD) 88 (>60 ml/min/1.73 sqM); Albumin/Globulin Ratio 0.9; Alkaline Phosphatase 93 U/L (38-126); Anion Gap 5 mmol/L; Blood Urea Nitrogen 13 mg/dL (9-20); Calcium 7.6 mg/dL (8.4-10.2); Carbon Dioxide 16 mmol/L (22-30); Chloride 115 mmol/L (98-107); Globulin 2.2 g/dL; Glucose 94 mg/dL (74-99); Non-African American GFR(CKD) 76 (>60 ml/min/1.73 sqM); Potassium 3.9 mmol/L (3.5-5.1); Sodium 136 mmol/L (137-145); Total Bilirubin 0.7 mg/dL (0.2-1.3); Total Protein 4.2 g/dL (6.3-8.2)
[2022-01-20 10:16] LABS: Anisocytosis Slight; HCT 39.4 % (39.0-53.0); Hypochromasia Marked; MCH 31.5 pg (25.0-35.0); MCHC 30.4 g/dL (31.0-37.0); MCV 103.3 fL (80.0-100.0); Macrocytosis Moderate; Mean Platelet Volume 7.6; Platelet Count 221 k/uL (150-450); RBC 3.81 m/uL (4.30-5.90); RDW 17.1 % (11.5-15.5)
[2022-01-20 11:19] LABS: Glucose,Whole Blood 79 mg/dL (75-99)
[2022-01-20] MEDS ORDERED: PROPOFOL 10 MG/ML 20 ML VIAL IV ONE (13:26)
[2022-01-20] MEDS ORDERED: LIDOCAINE 2% INJ 20 MG/ML (2 ML VIAL) ONE (13:26)
[2022-01-20] MEDS ORDERED: IV FLUID CONTINUATION 1,000 ML IV ONE (13:37)
--- NOTE | 2022-01-20 13:40 | P.OP ---
Date of Procedure: 01/20/22 Preoperative Diagnosis: Colitis Postoperative Diagnosis: Large amount of liquid stool, poor colon prep Procedure(s) Performed: Colonoscopy Anesthesia: MAC Surgeon: Gera Sam Pathology: none sent Condition: stable Disposition: PACU Description of Procedure: The patient was placed on the endoscopy table lateral position. He received IV sedation. Digital rectal exam was performed. This revealed a large amount liquid stool. The flexible colonoscope was then placed patient anus and passed throughout the colon. Scope could not be advanced beyond the sigmoid colon secondary to poor colonic prep. There was so much liquid stool the mucosa could not be well seen. At this point the scope was withdrawn. Patient top she will was sent back to his room in stable condition.
[2022-01-20] MEDS ORDERED: METOPROLOL TARTRATE 25 MG TAB PO SCH (15:15)
--- NOTE | 2022-01-20 15:15 | P.PN ---
Subjective Progress Note Date: 01/20/22 The patient is a 71-year-old male with a PMH of coronary artery disease status post multiple stents, type II DM, A. fib on Eliquis, and COPD, CHF (diastolic), resident of skilled nursing who presents to the emergency room for abdominal pain and diarrhea. The patient reports that his symptoms started a week ago. He reports diffuse abdominal discomfort, 7 out of 10 on maximal intensity, aching and sharp in nature, with associated diarrhea. He reports loose BMs over the past 3-4 days. Denied nausea or vomiting. Also denied experiencing fever, chills, cough, chest pain, shortness of breath, or urinary complaints. Denied any changes in his diet. Reports that as a result of his symptoms, he has not been eating or drinking as much as usual. CT abdomen and pelvis revealed a distended large bowel, as well as findings consistent with nonspecific colitis. There was also an L1 compression fracture, which had progressed from prior study, as well as some interstitial infiltrates in the left posterior lung which were new. After evaluation had revealed a WBC count 12.9, and 12.2, sodium 129, potassium 3.3, CO2 17, BUN 33, creatinine 1.42 (previously 1.27 on 11/2021), lactic acid 2.0, proBNP 11,200, and troponin 0.012. The patient had persistent hypotension in the emergency room with systolic 84/53, and pulse 125. 01/18: Patient is seen today in the emergency center waiting for bed on the [facility] floor. Patient has had no vomiting. He is noted hiccups frequently. He has not had a bowel movement. Patient has not been seen by general surgery. We will increase diet to clear liquid and advance to full liquid if okay with general surgery. Continue IV fluids at 0.9 normal saline 75 mL per hour and Ativan and Flagyl IV piggyback every 8 hours. Patient has been afebrile, heart rate running between 109 and 129, blood pressure 100/60, pulse ox 100% on 3 L nasal cannula. Patient scheduled to receive amiodarone this morning. [facility]. 01/19: Patient is seen today on the [facility] floor. Patient has been seen by general surgery and scheduled for colonoscopy on . Patient denies having nausea vomiting is not had a bowel movement. He is currently on a clear liquid diet. Repeat blood work reveals WBC 11.4, hemoglobin 12.4, platelet count 199. Sodium 135, potassium 4.3, chloride 114, CO2 14, BUN 19 and creatinine 1.04. Blood Glucose Running between 80 and 93. 01/20: Patient underwent colonoscopy which was unsuccessful due to poor prep. Plan is to monitor patient overnight and he has been started on a regular diet per general surgery. Patient has been afebrile, heart rate 122, blood pressure 114/71, pulse ox 100% on 4 L nasal cannula. Patient is already on amiodarone 200 mg daily and Toprol-XL 25 mg daily added. Repeat blood work reveals WBC 10, hemoglobin 12, platelet count 221. Sodium 136, potassium 3.9, chloride 115, CO2 16, BUN 13 and creatinine 1.01. Currently blood glucose running between 79 and 97. Discharge plan is to return home and hospital bed has been ordered, [facility] home care in place as well as palliative care. Anticipate discharge home tomorrow. Review Of Systems: Constitutional: No fever, no chills, no night sweats. No weight change. No weakness, fatigue or lethargy. No daytime sleepiness. EENT: No headache. No blurred vision or double vision, no loss of vision. No loss of Hearing, no ringing in the ears, no dizziness. No nasal drainage or co ngestion. No epistaxis. No sore throat. Lungs: No shortness of breath, cough, no sputum production. No wheezing. Cardiovascular: No chest pain, no lower extremity edema. No palpitations. No paroxysmal nocturnal dyspnea. No orthopnea. No lightheadedness or dizziness. No syncopal episodes. Abdominal: No abdominal pain. No nausea, vomiting. No diarrhea. reports constipation. No bloody or tarry stools.. No loss of appetite. Genitourinary: No dysuria, increased frequency, urgency. No urinary retention. Musculoskeletal: No myalgias. No muscle weakness, no gait dysfunction, no frequent falls. No back pain. No neck pain. Integumentary: No wounds, no lesions. No rash or pruritus. No unusual bruising. No change in hair or nails. Neurologic: No aphasia. No facial droop. No change in mentation. No head injury. No headache. No paralysis. No paresthesia. Psychiatric: No depression. No anxiety. No mood swings. Endocrine: No abnormal blood sugars. No weight change. No excessive sweating or thirst. No cold intolerance. Physical examination: General: This is a 71-year-old male resting in bed He appears to be in no acute distress. Head: atraumatic, normocephalic, symmetric Eyes: EOMI, no lid lag, anicteric sclera, pupils equal round reactive to light ENT: Nose and ears atraumatic, no thrush, no pharyngeal erythema Neck: No thyromegaly, no cervical lymphadenopathy, trachea midline, supple Mouth: no lip lesion, mucus membranes moist Cardiovascular: S1S2 reg, no murmur, positive posterior tibial pulse bilateral, no edema, capillary refill less than 2 seconds Lungs: CTA bilateral, no rhonchi, no rales , no accessory muscle use Abdominal: soft, mild diffuse tenderness, no guarding, no appreciable organomegaly, normal bowel sounds Ext: no gross muscle atrophy, muscle strength 3 out of 5 in all 4 extremities grossly, no contractures, Neuro: CN II-XI grossly intact, light touch intact all 4 extremities, finger to nose within normal limits, Psych: Alert, oriented, appropriate affect Assessment/plan Sepsis secondary to colitis -Continue on Flagyl IV piggyback every 8 hours -Regular diet -Colonoscopy unsuccessful due to poor prep Hypokalemia -Replace and monitor Acute kidney injury, likely secondary to ongoing sepsis -Gentle IV hydration -Monitor BMP -Sodium bicarb Chronic persistent atrial fibrillation with previous cardioversion 2. Continue amiodarone 200 mg daily and add Toprol-XL 25 mg daily. Hypertension. Continue Toprol-XL. Hyperlipidemia. Hold atorvastatin 80 mg at bedtime Diabetes mellitus type 2. Hole Tradjenta and add NovoLog scale before meals and at bedtime History of stroke. Patient is on atorvastatin and eliquis for secondary prevention. Peripheral vascular disease with history of carotid stenosis. Continue atorvas tatin and eliquis for secondary prevention. Chronic kidney disease stage III. Avoid nephrotoxic agents, monitor renal function. Anemia of chronic kidney disease. Chronic back pain. Continue Flexeril 10 mg at bedtime. Recurrent depression. Continue Lexapro 20 mg daily. Hypothyroidism. Continue levothyroxine 50 g daily. GI prophylaxis. Protonix IV daily DVT prophylaxis -Eliquis CODE STATUS: Full Code DISCHARGE PLAN Home tomorrow with [facility] and Palliative Care Impression and plan of care have been directed as dictated by the signing physician. Luci Farrar nurse practitioner acting as scribe for signing physician. Objective - Vital Signs Vital signs: Vital Signs Temp 97.7 F 01/20/22 07:40 Pulse 122 H 01/20/22 07:40 Resp 20 01/20/22 07:40 BP 114/71 01/20/22 07:40 Pulse Ox 100 01/20/22 07:40 Intake & Output 01/19/22 01/20/22 01/20/22 18:59 06:59 18:59 Intake Total 700 Output Total 450 Balance -450 700 Intake: Intake, IV Titration 700 Amount Sodium Chloride 0.9% 1, 600 000 ml @ 75 mls/hr IV . [id number] [facility] Rx#:[id number] PMX 500 100 mg In Saline 1 100ml.bag @ 100 mls/hr IVPB Q8HR ADEN Rx#:[id number] Output: Urine 450 Other: Voiding Method Urinal - Labs CBC & Chem 7: 01/20/22 08:52 01/20/22 08:52 Labs: Abnormal Lab Results - Last 24 Hours (Table) 01/20/22 01/20/22 Range/Units 08:52 08:52 RBC 3.81 L (4.30-5.90) m/uL Hgb 12.0 L (13.0-17.5) gm/dL MCV 103.3 H (80.0-100.0) fL MCHC 30.4 L (31.0-37.0) g/dL RDW 17.1 H (11.5-15.5) % Sodium 136 L (137-145) mmol/L Chloride 115 H (98-107) mmol/L Carbon Dioxide 16 L (22-30) mmol/L Calcium 7.6 L (8.4-10.2) mg/dL Total Protein 4.2 L (6.3-8.2) g/dL Albumin 2.0 L (3.5-5.0) g/dL Microbiology - Last 24 Hours (Table) 01/17/22 16:25 Blood Culture - Preliminary Blood No Growth after 48 hours
[2022-01-20 16:34] LABS: Glucose,Whole Blood 76 mg/dL (75-99)
[2022-01-20] MEDS: METOPROLOL SUCCINATE (ER) 25 MG TAB.ER.24H PO SCH (17:11)
[2022-01-20 20:58] LABS: Glucose,Whole Blood 97 mg/dL (75-99)
[2022-01-20] MEDS: LEVOTHYROXINE 50 MCG TAB PO SCH (22:35)
[2022-01-21 07:02] LABS: Glucose,Whole Blood 72 mg/dL (75-99)
[2022-01-21] MEDS: INSULIN ASPART (NovoLOG) 100 UNIT/ML VIAL SQ SCH (07:03)
[2022-01-21 07:45] VITALS: BP 116/72; PULSE 118; RESP 17; TEMP 98.4
[2022-01-21] MEDS: ESCITALOPRAM 20 MG TAB PO SCH (07:51)
[2022-01-21] MEDS: metroNIDAZOLE-NS PMX 500 MG in SALINE 1 100ML.BAG IVPB SCH (07:51)
[2022-01-21] MEDS: PANTOPRAZOLE 40 MG/10 ML VIAL IVP SCH (07:51)
[2022-01-21] MEDS: METOPROLOL SUCCINATE (ER) 25 MG TAB.ER.24H PO SCH (07:52)
[2022-01-21] MEDS: allopurinoL 100 MG TAB PO SCH (07:52)
[2022-01-21] MEDS: SODIUM BICARBONATE TAB 650 MG TAB PO SCH (07:52)
[2022-01-21] MEDS: AMIODARONE 200 MG TAB PO SCH (07:52)
--- NOTE | 2022-01-21 08:07 | P.DS ---
Providers Date of admission: 01/17/22 22:07 Expected date of discharge: 01/21/22 Attending physician: Jovanni Blandon Consults: 01/18/22 08:45 Consult Physician Routine Consulting Provider: Gera Sam Consult Reason/Comments: ILEUS Do you want consulting provider notified?: Yes Primary care physician: [facility] Course: The patient is a 71-year-old male with a PMH of coronary artery disease status post multiple stents, type II DM, A. fib on Eliquis, and COPD, CHF (diastolic), resident of retirement who presents to the emergency room for abdominal pain and diarrhea. The patient reports that his symptoms started a week ago. He reports diffuse abdominal discomfort, 7 out of 10 on maximal intensity, aching and sharp in nature, with associated diarrhea. He reports loose BMs over the past 3-4 days. Denied nausea or vomiting. Also denied experiencing fever, chills, cough, chest pain, shortness of breath, or urinary complaints. Denied any changes in his diet. Reports that as a result of his symptoms, he has not been eating or drinking as much as usual. CT abdomen and pelvis revealed a distended large bowel, as well as findings consistent with nonspecific colitis. There was also an L1 compression fracture, which had progressed from prior study, as well as some interstitial infiltrates in the left posterior lung which were new. After evaluation had revealed a WBC count 12.9, and 12.2, sodium 129, potassium 3.3, CO2 17, BUN 33, creatinine 1.42 (previously 1.27 on 11/2021), lactic acid 2.0, proBNP 11,200, and troponin 0.012. The patient had persistent hypotension in the emergency room with systolic 84/53, and pulse 125. /: Patient is seen today in the emergency center waiting for bed on the [facility] floor. Patient has had no vomiting. He is noted hiccups frequently. He has not had a bowel movement. Patient has not been seen by general surgery. We will increase diet to clear liquid and advance to full liquid if okay with ge neral surgery. Continue IV fluids at 0.9 normal saline 75 mL per hour and Ativan and Flagyl IV piggyback every 8 hours. Patient has been afebrile, heart rate running between 109 and 129, blood pressure 100/60, pulse ox 100% on 3 L nasal cannula. Patient scheduled to receive amiodarone this morning. Patient verbalizes that he does not plan to return to [facility] at the time of discharge. 01/19: Patient is seen today on the [facility] floor. Patient has been seen by general surgery and scheduled for colonoscopy on . Patient denies having nausea vomiting is not had a bowel movement. He is currently on a clear liquid diet. Repeat blood work reveals WBC 11.4, hemoglobin 12.4, platelet count 199. Sodium 135, potassium 4.3, chloride 114, CO2 14, BUN 19 and creatinine 1.04. Blood Glucose Running between 80 and 93. 01/20: Patient underwent colonoscopy which was unsuccessful due to poor prep. Plan is to monitor patient overnight and he has been started on a regular diet per general surgery. Patient has been afebrile, heart rate 122, blood pressure 114/71, pulse ox 100% on 4 L nasal cannula. Patient is already on amiodarone 200 mg daily and Toprol-XL 25 mg daily added. Repeat blood work reveals WBC 10, hemoglobin 12, platelet count 221. Sodium 136, potassium 3.9, chloride 115, CO2 16, BUN 13 and creatinine 1.01. Currently blood glucose running between 79 and 97. Discharge plan is to return home and hospital bed has been ordered, [facility] home care in place as well as palliative care. Anticipate discharge home tomorrow. 01/21: Patient is found sitting on edge of the bed eating a regular doctors. He is tolerating well. No nausea or vomiting. He is anxious to go home today. He's been afebrile, heart rate 118, blood pressure 116/72, pulse ox 100% on room air. We'll plan to increase metoprolol to 50 mg daily. Capillary blood glucose running between 76-97. Blood cultures no growth at 72 hours. DISCHARGE DIAGNOSES Sepsis secondary to colitis Hypokalemia Acute kidney injury, likely secondary to ongoing sepsis Chronic persistent atrial fibrillation with previous cardioversion 2. Hypertension. Hyperlipidemia. Diabetes mellitus type 2. History of stroke. Peripheral vascular disease with history of carotid stenosis. Chronic kidney disease stage III. Anemia of chronic kidney disease. Chronic back pain. Recurrent depression. Hypothyroidism. DISCHARGE PLAN Home with [facility] and Palliative Care. Greater than 35 minutes was utilized and coordinating patient's discharge. Impression and plan of care have been directed as dictated by the signing physician. Luci Farrar nurse practitioner acting as scribe for signing physician. Patient Condition at Discharge: Stable Plan - Discharge Summary New Discharge Prescriptions: New Pantoprazole [Protonix] 40 mg PO DAILY #30 tab Metoprolol Succinate (ER) [Toprol Xl] 50 mg PO DAILY #30 tab Continue allopurinoL [Zyloprim] 100 mg PO DAILY@0900 Sennosides/Docusate Sodium [Senna Plus 8.6-50 mg Tablet] 1 tab PO DAILY@0900 Linagliptin [Tradjenta] 5 mg PO DAILY@0900 Escitalopram [Lexapro] 20 mg PO DAILY@0900 Amiodarone [Cordarone] 200 mg PO DAILY@0900 Insulin Lispro [humaLOG Kwikpen] See Protocol SQ ACHS Megestrol Acetate 400 mg PO BID@0900,2100 Melatonin 5 mg PO HS@2100 Furosemide [Lasix] 40 mg PO DAILY@0900 Ipratropium-Albuterol Nebulize [Duoneb 0.5 mg-3 mg/3 ml Soln] 3 ml INHALATION RT-Q6H PRN PRN Reason: shortness of breath Apixaban [Eliquis] 5 mg PO BID@0900,2100 Biotene Dry Mouth Liquid Mouthwash 5 ml PO Q1H PRN PRN Reason: Dry Mouth [place]ocarpine HCl [Salagen] 5 mg PO TID@0600,1300,2100 Loperamide [Imodium] 2 mg PO DAILY PRN PRN Reason: Loose Stool Sodium Bicarbonate Tab 650 mg PO BID@0900,2100 Calcium Carbonate/Vitamin D3 [Calcium 500 mg Chewable Tablet] 1 tab PO BID@0900,2100 Levothyroxine Sodium [Synthroid] 50 mcg PO HS@2100 traMADol HCL 50 mg PO Q6H PRN PRN Reason: Pain metroNIDAZOLE [Flagyl] 500 mg PO TID@0900,1300,2100 #21 tab Discharge Medication List allopurinoL [Zyloprim] 100 mg PO DAILY@0900 02/04/17 [History] Amiodarone [Cordarone] 200 mg PO DAILY@0900 11/02/21 [History] Apixaban [Eliquis] 5 mg PO BID@0900,2100 11/02/21 [History] Escitalopram [Lexapro] 20 mg PO DAILY@0900 11/02/21 [History] Linagliptin [Tradjenta] 5 mg PO DAILY@0911/02/21 [History] Sennosides/Docusate Sodium [Senna Plus 8.6-50 mg Tablet] 1 tab PO DAILY@0900 11/02/21 [History] Biotene Dry Mouth Liquid Mouthwash 5 ml PO Q1H PRN 12/13/21 [History] Pilocarpine HCl [Salagen] 5 mg PO TID@0600,1300,209912/13/21 [History] Calcium Carbonate/Vitamin D3 [Calcium 500 mg Chewable Tablet] 1 tab PO BID@0900,209901/17/22 [History] Furosemide [Lasix] 40 mg PO DAILY@89901/17/22 [History] Insulin Lispro [humaLOG Kwikpen] See Protocol SQ ACHS 01/17/22 [History] Ipratropium-Albuterol Nebulize [Duoneb 0.5 mg-3 mg/3 ml Soln] 3 ml INHALATION RT-Q6H PRN 01/17/22 [History] Levothyroxine Sodium [Synthroid] 50 mcg PO HS@209901/17/22 [History] Loperamide [Imodium] 2 mg PO DAILY PRN 01/17/22 [History] Megestrol Acetate 400 mg PO BID@0900,209901/17/22 [History] Melatonin 5 mg PO HS@209901/17/22 [History] Sodium Bicarbonate Tab 650 mg PO BID@0900,209901/17/22 [History] traMADol HCL 50 mg PO Q6H PRN 01/17/22 [History] Pantoprazole [Protonix] 40 mg PO DAILY #30 tab 01/20/22 [Rx] metroNIDAZOLE [Flagyl] 500 mg PO TID@0900,1300,2099 #21 tab 01/20/22 [Rx] Metoprolol Succinate (ER) [Toprol Xl] 50 mg PO DAILY #30 tab 01/21/22 [Rx] Follow up Appointment(s)/Referral(s): [facility] [NON-STAFF] - As Needed (Hospital bed) [facility], [NON-STAFF] - As Needed Care,[facility] [NON-STAFF] - As Needed Randy Saleh DO [Primary Care Provider] - 1 Week (Office will call you with your appointment) Gera Sam MD [STAFF PHYSICIAN] - 02/01/22 2:00 pm Discharge Disposition: HOME WITH HOME HEALTH SERVICES
[2022-01-21] MEDS ORDERED: METOPROLOL SUCCINATE (ER) 25 MG TAB.ER.24H PO STA (09:58)
[2022-01-22] MEDS ORDERED: METOPROLOL SUCCINATE (ER) 50 MG TAB.ER.24H PO SCH (09:00)
== END 2022-01-21 11:38 | disposition home health service (06) | DRG 872 ==
LOC: EC 15:46 → 4SSUR 22:07
PROVIDERS: ADMIT Internal Medicine Geriatric Medicine; ATTEND Internal Medicine Geriatric Medicine
PROC: 0DJD8ZZ Inspection of Lower Intestinal Tract, Via Natural or Artificial Opening Endoscopic (ICD-10-PCS; principal; 2022-01-20 11:45)
DX: A41.9 Sepsis, unspecified organism (principal); E87.1 Hypo-osmolality and hyponatremia; F33.9 Major depressive disorder, recurrent, unspecified; I13.0 Hypertensive heart and chronic kidney disease with heart failure and stage 1 through stage 4 chronic kidney disease, or unspecified chronic kidney disease; I48.19 Other persistent atrial fibrillation; I48.92 Unspecified atrial flutter; I50.32 Chronic diastolic (congestive) heart failure; K56.7 Ileus, unspecified; N17.9 Acute kidney failure, unspecified; M48.56XA Collapsed vertebra, not elsewhere classified, lumbar region, initial encounter for fracture; D63.1 Anemia in chronic kidney disease; I25.10 Atherosclerotic heart disease of native coronary artery without angina pectoris; E03.9 Hypothyroidism, unspecified; E11.22 Type 2 diabetes mellitus with diabetic chronic kidney disease; E11.51 Type 2 diabetes mellitus with diabetic peripheral angiopathy without gangrene; E78.5 Hyperlipidemia, unspecified; J44.9 Chronic obstructive pulmonary disease, unspecified; K52.9 Noninfective gastroenteritis and colitis, unspecified; N18.30 Chronic kidney disease, stage 3 unspecified; E83.42 Hypomagnesemia; I95.9 Hypotension, unspecified; E83.51 Hypocalcemia; E87.6 Hypokalemia; G89.29 Other chronic pain; M54.9 Dorsalgia, unspecified; I25.2 Old myocardial infarction; Z79.01 Long term (current) use of anticoagulants; Z79.84 Long term (current) use of oral hypoglycemic drugs; Z79.890 Hormone replacement therapy; Z79.899 Other long term (current) drug therapy; Z80.6 Family history of leukemia; Z82.3 Family history of stroke; Z82.49 Family history of ischemic heart disease and other diseases of the circulatory system; Z82.5 Family history of asthma and other chronic lower respiratory diseases; Z86.73 Personal history of transient ischemic attack (TIA), and cerebral infarction without residual deficits; Z87.19 Personal history of other diseases of the digestive system; Z87.891 Personal history of nicotine dependence; Z95.1 Presence of aortocoronary bypass graft; Z95.5 Presence of coronary angioplasty implant and graft; Z88.5 Allergy status to narcotic agent; K21.9 Gastro-esophageal reflux disease without esophagitis
CPT/HCPCS: 36415; 45378; 74022; 74177; 80048; 80053; 81001; 82150; 83605; 83690; 83735; 83880; 84484; 85025; 85027; 85610; 85730; 87040; 87324; 93005; 96361; 96365; 96367; 96375; 99285

== ENCOUNTER 2022-03-02 14:46 | Inpatient (IN) | payer MEDICARE, OTHER ==
[2022-03-02] MEDS ORDERED: SODIUM CHLORIDE 0.9% 2,000 ML IV ONE (15:06)
[2022-03-02] MEDS ORDERED: ONDANSETRON 4 MG/2 ML VIAL IVP STA (15:17)
--- NOTE | 2022-03-02 15:34 | ED ---
Weakness HPI - General Chief complaint: Weakness Stated complaint: Dizziness Time Seen by Provider: 03/02/22 15:03 Source: patient, family, EMS, RN notes reviewed Mode of arrival: EMS Limitations: no limitations - History of Present Illness Initial comments: This is a 71-year-old male who presents to the emergency department for weakness. Patient states that he was sitting in his chair earlier today, when he suddenly began to feel weak. He does endorse a room spinning sensation, states that he is trying to keep his eyes closed to avoid experiencing dizziness. He was hospitalized approximately 6 weeks ago for sepsis secondary to colitis. For the last 5 days he has had diarrhea. His daughter states that they've been trying to treat this with Imodium. She did drop off a stool sample at the lab yesterday. He does also note that he has been experiencing dehydration and does not drink as much water as he should. Prior to today, he was fairly active and his daughter states that he had much more energy. His daughter states that his blood pressure typically runs low, approximately in the low 100s over 60s. He did throw up once earlier today, shortly after the dizziness started. Denies any chest pain but he does report some shortness of breath. Patient also notes that he COVID approximately 6-7 weeks ago and has had some difficulty recovering ever since in terms of shortness of breath and fatigue. Denies any fevers, chills, sore throat, cough, chest pain, palpitations, abdominal pain, vomiting, diarrhea, back pain, or headaches. MD Complaint: generalized weakness Location: generalized - Related Data Home Medications Medication Instructions Recorded Confirmed Amiodarone [Cordarone] 200 mg PO DAILY 11/02/21 03/02/22 Apixaban [Eliquis] 5 mg PO BID 11/02/21 03/02/22 Escitalopram [Lexapro] 20 mg PO DAILY 11/02/21 03/02/22 Furosemide [Lasix] 40 mg PO DAILY 01/17/22 03/02/22 Ascorbic Acid [Vitamin C] 1,000 mg PO DAILY 03/02/22 03/02/22 Cholecalciferol [Vitamin D3 (125 125 mcg PO DAILY 03/02/22 03/02/22 Mcg = 5000 Iu)] QUEtiapine [SEROquel] 50 mg PO HS 03/02/22 03/02/22 Spironolactone [Aldactone] 50 mg PO DAILY 03/02/22 03/02/22 Zinc 50 mg PO DAILY 03/02/22 03/02/22 metFORMIN HCL 500 mg PO BID 03/02/22 03/02/22 sitaGLIPtin PHOSPHATE [Januvia] 100 mg PO DAILY 03/02/22 03/02/22 Allergies Allergy/AdvReac Type Severity Reaction Status Date / Time codeine Allergy Unknown Verified 03/02/22 14:59 Childhood morphine Allergy Unknown Verified 03/02/22 14:59 Childhood Review of Systems ROS Statement: Those systems with pertinent positive or pertinent negative responses have been documented in the HPI. ROS Other: All systems not noted in ROS Statement are negative. Past Medical History Past Medical History: COPD, CVA/TIA, Diabetes Mellitus, GERD/Reflux, Hyperlipidemia, Hypertension, Myocardial Infarction (GA), Renal Disease Additional Past Medical History / Comment(s): COPD, CVA 1997, carotid artery disease, diabetes mellitus, chronic back pain, tenosynovitis involving the wrists and hands bilaterally, chronic renal failure, mild aortic stenosis with a peak gradient across the aortic valve of 70 mmHg; three heart attacks, last in 2001 Last Myocardial Infarction Date:: 2001 History of Any Multi-Drug Resistant Organisms: None Reported Past Surgical History: Coronary Bypass/CABG, Heart Catheterization With Stent, Hernia Repair Additional Past Surgical History / Comment(s): March 1998 Cabg TRIPLE vessel by Dr. Ge. [facility] with 3 stents. 4th stent 2016 at [place], COLONOSCOPY, pneumothorax Past Anesthesia/Blood Transfusion Reactions: No Reported Reaction Date of Last Stent Placement:: March 19982015 Past Psychological History: No Psychological Hx Reported Smoking Status: Former smoker Past Alcohol Use History: None Reported Past Drug Use History: None Reported - Past Family History Father Family Medical History: Cancer Additional Family Medical History / Comment(s): Leukemia Father of leukemia at age 32yrs Mother Family Medical History: COPD Additional Family Medical History / Comment(s): Mother was 76 when she . She had mental illness. Sister(s) Family Medical History: Coronary Artery Disease (CAD), CVA/TIA Brother(s) Family Medical History: Coronary Artery Disease (CAD) General Exam Limitations: no limitations General appearance: alert, other (Drowsy) Head exam: Present: atraumatic, normocephalic, normal inspection Respiratory exam: Present: normal lung sounds bilaterally. Absent: respiratory distress, wheezes, rales, rhonchi, stridor Cardiovascular Exam: Present: regular rate, normal rhythm, normal heart sounds. Absent: systolic murmur, diastolic murmur, rubs, gallop, clicks GI/Abdominal exam: Present: soft, tenderness (Suprapubic), hyperactive bowel s ounds. Absent: distended Neurological exam: Present: alert, oriented X3, CN II-XII intact Psychiatric exam: Present: normal affect, normal mood Skin exam: Present: warm, dry, intact, normal color. Absent: rash Course Vital Signs 03/02/22 03/02/22 03/02/22 14:53 15:30 16:00 Temperature 97.5 F L Pulse Rate 114 H 105 H 108 H Respiratory 16 18 18 Rate Blood Pressure 89/54 84/54 78/48 O2 Sat by Pulse 100 100 99 Oximetry 03/02/22 03/02/22 03/02/22 16:30 16:48 17:00 Temperature Pulse Rate 105 H 105 H 98 Respiratory 18 16 18 Rate Blood Pressure 73/56 71/47 83/57 O2 Sat by Pulse 100 100 100 Oximetry 03/02/22 03/02/22 03/02/22 17:32 18:18 18:56 Temperature 97.5 F L Pulse Rate 101 H 94 91 Respiratory 18 18 16 Rate Blood Pressure 91/61 93/66 93/67 O2 Sat by Pulse 100 100 99 Oximetry 03/02/22 03/02/22 03/02/22 20:41 21:51 23:00 Temperature Pulse Rate 70 80 85 Respiratory 16 16 16 Rate Blood Pressure 101/66 86/66 98/66 O2 Sat by Pulse 98 Oximetry EKG Findings - EKG Comments: EKG Findings:: Ectopic atrial tachycardia with occasional ventricular premature complexes. Borderline right axis deviation. Intraventricular conduction delay. Ventricular rate 112 bpm, AL interval 197 ms, QRS duration 137 ms, QTC 495 ms. Medical Decision Making - Medical Decision Making This is a 71-year-old male who presents to the emergency department for we akness. Patient also noted to have nausea, vomiting, diarrhea, and abdominal pain. Given that he was recently hospitalized for sepsis secondary to colitis, will obtain a full panel of lab work including a CT of the abdomen and pelvis for the abdominal pain and diarrhea. Will also obtain a chest x-ray, given that the patient reports some shortness of breath and he has a history of pneumothorax when he had COVID 6-7 weeks ago. Patient was hypotensive on presentation, they sat the head of his bed up, and his blood pressure began to improve. He was also given a 2 L bolus of normal saline and started on fluids at 130 mL/hr. Lab work reveals a mildly elevated white blood cell count at 11.5 and a lactic acid of 2.6. Patient also has an acute kidney injury with creatinine of 1.85. After he received 2 L bolus of normal saline, he said that his dizziness had resolved, suggesting the dizziness may have been related to dehydration associated with the diarrhea not drinking enough water. However, patient's blood pressure began to drop to the 70s over 40s despite the fluid bolus. I discussed the patient's case with Dr. Gutierrez, and he advised he get another liter bolus of normal saline. While patient was receiving the normal saline, the blood pressure began to increase to the 90s over 60s. Blood pressure remains in the high 80s to 90s over 60s. Repeat lactic acid returned at 3.1. Computed tomography scan does reveal that the previous colitis is resolving. I contacted the lab, who said that the stool sample was dropped off at the outpatient lab. They are unsure if these results will be visible in our computer and advised that we contact them regularly for follow-up. Given the unresolving hypotension, the DONOVAN, and increasing lactic acid, patient will be admitted. Levaquin and Flagyl administered per Dr. Blandon's request. This case was discussed in detail with the attending ED physician. Presentation, findings, and treatment plan discussed in detail as well. - Lab Data Result diagrams: 03/02/22 15:29 03/02/22 15:29 Lab Results 03/02/22 03/02/22 03/02/22 Range/Units 15:29 15:29 15:29 WBC 11.5 H (3.8-10.6) k/uL RBC 3.34 L (4.30-5.90) m/uL Hgb 10.4 L (13.0-17.5) gm/dL Hct 32.1 L (39.0-53.0) % MCV 95.9 D (80.0-100.0) fL MCH 31.0 (25.0-35.0) pg MCHC 32.3 (31.0-37.0) g/dL RDW 17.6 H (11.5-15.5) % Plt Count 248 (150-450) k/uL MPV 7.4 Neutrophils % 81 % Lymphocytes % 8 % Monocytes % 7 % Eosinophils % 3 % Basophils % 1 % Neutrophils # 9.2 H (1.3-7.7) k/uL Lymphocytes # 0.9 L (1.0-4.8) k/uL Monocytes # 0.8 (0-1.0) k/uL Eosinophils # 0.3 (0-0.7) k/uL Basophils # 0.1 (0-0.2) k/uL Poikilocytosis Slight Anisocytosis Slight Macrocytosis Slight PT 11.5 (9.0-12.0) sec INR 1.1 (<1.2) APTT 28.0 (22.0-30.0) sec Sodium (137-145) mmol/L Potassium (3.5-5.1) mmol/L Chloride (98-107) mmol/L Carbon Dioxide (22-30) mmol/L Anion Gap mmol/L BUN (9-20) mg/dL Creatinine (0.66-1.25) mg/dL Est GFR (CKD-EPI)AfAm (>60 ml/min/1.73 sqM) Est GFR (CKD-EPI)NonAf (>60 ml/min/1.73 sqM) Glucose (74-99) mg/dL Lactic Ac Sepsis Rflx Plasma Lactic Acid Paco (0.7-2.0) mmol/L Calcium (8.4-10.2) mg/dL Phosphorus (2.5-4.5) mg/dL Magnesium (1.6-2.3) mg/dL Total Bilirubin (0.2-1.3) mg/dL AST (17-59) U/L ALT (4-49) U/L Alkaline Phosphatase (38-126) U/L Troponin I (0.000-0.034) ng/mL NT-Pro-B Natriuret Pep pg/mL Total Protein (6.3-8.2) g/dL Albumin (3.5-5.0) g/dL Amylase (30-110) U/L Lipase (23-300) U/L Urine Color Yellow Urine Appearance Clear (Clear) Urine pH 5.0 (5.0-8.0) Ur Specific [place] 1.011 (1.001-1.035) Urine Protein Negative (Negative) Urine Glucose (UA) Negative (Negative) Urine Ketones Negative (Negative) Urine Blood Negative (Negative) Urine Nitrite Negative (Negative) Urine Bilirubin Negative (Negative) Urine Urobilinogen <2.0 (<2.0) mg/dL Ur Leukocyte Esterase Moderate H (Negative) Urine RBC 1 (0-5) /hpf Urine WBC 7 H (0-5) /hpf Hyaline Casts 1 (0-2) /lpf Urine Mucus Rare H (None) /hpf 03/02/22 03/02/22 03/02/22 Range/Units 15:29 15:29 15:29 WBC (3.8-10.6) k/uL RBC (4.30-5.90) m/uL Hgb (13.0-17.5) gm/dL Hct (39.0-53.0) % MCV (80.0-100.0) fL MCH (25.0-35.0) pg MCHC (31.0-37.0) g/dL RDW (11.5-15.5) % Plt Count (150-450) k/uL MPV Neutrophils % % Lymphocytes % % Monocytes % % Eosinophils % % Basophils % % Neutrophils # (1.3-7.7) k/uL Lymphocytes # (1.0-4.8) k/uL Monocytes # (0-1.0) k/uL Eosinophils # (0-0.7) k/uL Basophils # (0-0.2) k/uL Poikilocytosis Anisocytosis Macrocytosis PT (9.0-12.0) sec INR (<1.2) APTT (22.0-30.0) sec Sodium 132 L (137-145) mmol/L Potassium 5.0 (3.5-5.1) mmol/L Chloride 103 (98-107) mmol/L Carbon Dioxide 18 L (22-30) mmol/L Anion Gap 11 mmol/L BUN 52 H (9-20) mg/dL Creatinine 1.85 H (0.66-1.25) mg/dL Est GFR (CKD-EPI)AfAm 42 (>60 ml/min/1.73 sqM) Est GFR (CKD-EPI)NonAf 36 (>60 ml/min/1.73 sqM) Glucose 152 H (74-99) mg/dL Lactic Ac Sepsis Rflx Plasma Lactic Acid Paco 2.6 H* (0.7-2.0) mmol/L Calcium 8.9 (8.4-10.2) mg/dL Phosphorus 4.7 H (2.5-4.5) mg/dL Magnesium 2.0 (1.6-2.3) mg/dL Total Bilirubin 1.1 (0.2-1.3) mg/dL AST 36 (17-59) U/L ALT 31 (4-49) U/L Alkaline Phosphatase 105 (38-126) U/L Troponin I <0.012 (0.000-0.034) ng/mL NT-Pro-B Natriuret Pep pg/mL Total Protein 6.3 (6.3-8.2) g/dL Albumin 3.7 (3.5-5.0) g/dL Amylase 53 (30-110) U/L Lipase 31 (23-300) U/L Urine Color Urine Appearance (Clear) Urine pH (5.0-8.0) Ur Specific [place] (1.001-1.035) Urine Protein (Negative) Urine Glucose (UA) (Negative) Urine Ketones (Negative) Urine Blood (Negative) Urine Nitrite (Negative) Urine Bilirubin (Negative) Urine Urobilinogen (<2.0) mg/dL Ur Leukocyte Esterase (Negative) Urine RBC (0-5) /hpf Urine WBC (0-5) /hpf Hyaline Casts (0-2) /lpf Urine Mucus (None) /hpf 03/02/22 03/02/22 03/02/22 Range/Units 15:29 16:19 19:01 WBC (3.8-10.6) k/uL RBC (4.30-5.90) m/uL Hgb (13.0-17.5) gm/dL Hct (39.0-53.0) % MCV (80.0-100.0) fL MCH (25.0-35.0) pg MCHC (31.0-37.0) g/dL RDW (11.5-15.5) % Plt Count (150-450) k/uL MPV Neutrophils % % Lymphocytes % % Monocytes % % Eosinophils % % Basophils % % Neutrophils # (1.3-7.7) k/uL Lymphocytes # (1.0-4.8) k/uL Monocytes # (0-1.0) k/uL Eosinophils # (0-0.7) k/uL Basophils # (0-0.2) k/uL Poikilocytosis Anisocytosis Macrocytosis PT (9.0-12.0) sec INR (<1.2) APTT (22.0-30.0) sec Sodium (137-145) mmol/L Potassium (3.5-5.1) mmol/L Chloride (98-107) mmol/L Carbon Dioxide (22-30) mmol/L Anion Gap mmol/L BUN (9-20) mg/dL Creatinine (0.66-1.25) mg/dL Est GFR (CKD-EPI)AfAm (>60 ml/min/1.73 sqM) Est GFR (CKD-EPI)NonAf (>60 ml/min/1.73 sqM) Glucose (74-99) mg/dL Lactic Ac Sepsis Rflx Y Plasma Lactic Acid Paco 3.1 H* (0.7-2.0) mmol/L Calcium (8.4-10.2) mg/dL Phosphorus (2.5-4.5) mg/dL Magnesium (1.6-2.3) mg/dL Total Bilirubin (0.2-1.3) mg/dL AST (17-59) U/L ALT (4-49) U/L Alkaline Phosphatase (38-126) U/L Troponin I (0.000-0.034) ng/mL NT-Pro-B Natriuret Pep 2690 pg/mL Total Protein (6.3-8.2) g/dL Albumin (3.5-5.0) g/dL Amylase (30-110) U/L Lipase (23-300) U/L Urine Color Urine Appearance (Clear) Urine pH (5.0-8.0) Ur Specific [place] (1.001-1.035) Urine Protein (Negative) Urine Glucose (UA) (Negative) Urine Ketones (Negative) Urine Blood (Negative) Urine Nitrite (Negative) Urine Bilirubin (Negative) Urine Urobilinogen (<2.0) mg/dL Ur Leukocyte Esterase (Negative) Urine RBC (0-5) /hpf Urine WBC (0-5) /hpf Hyaline Casts (0-2) /lpf Urine Mucus (None) /hpf 03/02/22 Range/Units 19:50 WBC (3.8-10.6) k/uL RBC (4.30-5.90) m/uL Hgb (13.0-17.5) gm/dL Hct (39.0-53.0) % MCV (80.0-100.0) fL MCH (25.0-35.0) pg MCHC (31.0-37.0) g/dL RDW (11.5-15.5) % Plt Count (150-450) k/uL MPV Neutrophils % % Lymphocytes % % Monocytes % % Eosinophils % % Basophils % % Neutrophils # (1.3-7.7) k/uL Lymphocytes # (1.0-4.8) k/uL Monocytes # (0-1.0) k/uL Eosinophils # (0-0.7) k/uL Basophils # (0-0.2) k/uL Poikilocytosis Anisocytosis Macrocytosis PT (9.0-12.0) sec INR (<1.2) APTT (22.0-30.0) sec Sodium (137-145) mmol/L Potassium (3.5-5.1) mmol/L Chloride (98-107) mmol/L Carbon Dioxide (22-30) mmol/L Anion Gap mmol/L BUN (9-20) mg/dL Creatinine (0.66-1.25) mg/dL Est GFR (CKD-EPI)AfAm (>60 ml/min/1.73 sqM) Est GFR (CKD-EPI)NonAf (>60 ml/min/1.73 sqM) Glucose (74-99) mg/dL Lactic Ac Sepsis Rflx Y Plasma Lactic Acid Paco (0.7-2.0) mmol/L Calcium (8.4-10.2) mg/dL Phosphorus (2.5-4.5) mg/dL Magnesium (1.6-2.3) mg/dL Total Bilirubin (0.2-1.3) mg/dL AST (17-59) U/L ALT (4-49) U/L Alkaline Phosphatase (38-126) U/L Troponin I (0.000-0.034) ng/mL NT-Pro-B Natriuret Pep pg/mL Total Protein (6.3-8.2) g/dL Albumin (3.5-5.0) g/dL Amylase (30-110) U/L Lipase (23-300) U/L Urine Color Urine Appearance (Clear) Urine pH (5.0-8.0) Ur Specific [place] (1.001-1.035) Urine Protein (Negative) Urine Glucose (UA) (Negative) Urine Ketones (Negative) Urine Blood (Negative) Urine Nitrite (Negative) Urine Bilirubin (Negative) Urine Urobilinogen (<2.0) mg/dL Ur Leukocyte Esterase (Negative) Urine RBC (0-5) /hpf Urine WBC (0-5) /hpf Hyaline Casts (0-2) /lpf Urine Mucus (None) /hpf - Radiology Data Radiology results: report reviewed, image reviewed Disposition Clinical Impression: Acute kidney injury, Hypotensive episode Disposition: ADMITTED IP TO THIS HOSP
[2022-03-02 15:44] LABS: Anisocytosis Slight; Basophils # (A) 0.1 k/uL (0-0.2); Basophils % (A) 1 %; Eosinophils # (A) 0.3 k/uL (0-0.7); Eosinophils % (A) 3 %; HCT 32.1 % (39.0-53.0); HGB 10.4 gm/dL (13.0-17.5); Lymphocytes # (A) 0.9 k/uL (1.0-4.8); Lymphocytes % (A) 8 %; MCHC 32.3 g/dL (31.0-37.0); Macrocytosis Slight; Mean Platelet Volume 7.4; Monocytes # (A) 0.8 k/uL (0-1.0); Monocytes % (A) 7 %; Neutrophils # (A) 9.2 k/uL (1.3-7.7); Neutrophils % (A) 81 %; Platelet Count 248 k/uL (150-450); Poikilocytosis Slight; RBC 3.34 m/uL (4.30-5.90); RDW 17.6 % (11.5-15.5); WBC 11.5 k/uL (3.8-10.6)
[2022-03-02 16:01] LABS: Appearance,Urine Clear (Clear); Bilirubin,Urine Negative (Negative); Blood,Urine Negative (Negative); Color,Urine Yellow; Glucose,Urine (UA) Negative (Negative); Hyaline Casts,Urine 1 /lpf (0-2); Ketones,Urine Negative (Negative); Leukocyte Esterase,Urine Moderate (Negative); Mucus,Urine Rare /hpf; Nitrite,Urine Negative (Negative); Protein,Urine Negative (Negative); RBC,Urine 1 /hpf (0-5); Specific Gravity,Urine 1.011 (1.001-1.035); Urobilinogen,Urine <2.0 mg/dL (<2.0); WBC,Urine 7 /hpf (0-5)
[2022-03-02 16:26] LABS: Albumin 3.7 g/dL (3.5-5.0); Calcium 8.9 mg/dL (8.4-10.2); Phosphorus 4.7 mg/dL (2.5-4.5); Total Bilirubin 1.1 mg/dL (0.2-1.3); Total Protein 6.3 g/dL (6.3-8.2)
[2022-03-02 16:30] LABS: MCV 95.9 fL (80.0-100.0)
[2022-03-02 16:39] LABS: INR 1.1 (<1.2); Prothrombin Time 11.5 sec (9.0-12.0)
[2022-03-02] MEDS: SODIUM CHLORIDE 0.9% 1,000 ML IV SCH (16:46)
[2022-03-02] MEDS ORDERED: SODIUM CHLORIDE 0.9% 1,000 ML IV STA (16:52)
--- NOTE | 2022-03-02 21:17 | CT ---
EXAMINATION TYPE: CT abdomen pelvis wo con DATE OF EXAM: 03/02/2022 COMPARISON: 01/17/2022 HISTORY: Lower abdominal pain CT DLP: 784.2 mGycm Automated exposure control for dose reduction was used. Lung bases show some scarring and atelectasis. Heart size is normal. No pericardial effusion. Liver and spleen are intact. There is no pancreatic mass. The stomach is intact. Gallbladder is intac t. The bile ducts are not dilated. There is no adrenal mass. Kidneys have normal size. No hydronephrosis. Ureters are not dilated. There is no retroperitoneal adenopathy. Abdominal aorta is atheromatous. The bladder distends smoothly. Th ere is no inguinal hernia. No free fluid in the pelvis. There small prosthetic calcifications. No pel emmanuel mass. There is some mild wall thickening of the sigmoid colon. No mesenteric edema. No ascites or free air. No bowel obstruction. The lumbar vertebra show anterior wedging of L1 35%. Fracture appears old. Abdominal aorta is atherom atous. The bony pelvis is intact. The hip joints are intact. IMPRESSION: There is some mild wall thickening of the sigmoid colon consistent with some mild colitis with improv ement compared to old exam. There is clearing of the large bowel ileus pattern compared to old exam. There is some scarring and atelectasis at the lung bases without change.
--- NOTE | 2022-03-02 21:33 | XR ---
EXAMINATION TYPE: XR chest 2V DATE OF EXAM: 03/02/2022 COMPARISON: 01/17/2022 HISTORY: Abdominal pain TECHNIQUE: 4 views FINDINGS: There is some blunting left costophrenic angle. Heart is normal. There are no hilar masses. There are sternal wires. Bony thorax is intact. IMPRESSION: There is some pleural diaphragmatic scarring lateral left lung base. Normal heart. No loreto nge. No heart failure.
[2022-03-02] MEDS ORDERED: LEVOFLOXACIN 500 MG TAB PO STA (22:33)
[2022-03-02] MEDS ORDERED: metroNIDAZOLE 500 MG TAB PO STA (22:33)
[2022-03-02] MEDS ORDERED: ONDANSETRON 4 MG/2 ML VIAL IVP PRN (22:38)
[2022-03-02] MEDS ORDERED: ACETAMINOPHEN TAB 325 MG TAB PO PRN (22:38)
[2022-03-02] MEDS ORDERED: NALOXONE 0.4 MG/ML 1 ML VIAL IV PRN (22:38)
[2022-03-02] MEDS ORDERED: metFORMIN 500 MG TAB PO SCH (23:30)
[2022-03-03 01:46] LABS: Glucose,Whole Blood 79 mg/dL (75-99)
[2022-03-03] MEDS: APIXABAN 5 MG TAB PO SCH ×3 (01:57→21:05)
[2022-03-03] MEDS: QUEtiapine 50 MG TAB PO SCH ×2 (01:58→21:05)
[2022-03-03 03:19] LABS: Glucose,Whole Blood 97 mg/dL (75-99)
[2022-03-03] MEDS: SODIUM CHLORIDE 0.9% 1,000 ML IV SCH ×2 (07:29→08:50)
[2022-03-03] MEDS: metroNIDAZOLE-NS PMX 250 MG in SALINE 1 100ML.BAG IVPB SCH ×2 (08:50→15:55)
[2022-03-03] MEDS: ZINC SULFATE 220 MG CAP PO SCH (08:52)
[2022-03-03] MEDS: CHOLECALCIFEROL 125 MCG (5000 IU) TABLET PO SCH (08:52)
[2022-03-03] MEDS: AMIODARONE 200 MG TAB PO SCH (08:52)
[2022-03-03] MEDS: ESCITALOPRAM 20 MG TAB PO SCH (08:53)
[2022-03-03] MEDS: LINAGLIPTIN 5 MG TABLET PO SCH (08:55)
[2022-03-03] MEDS ORDERED: SPIRONOLACTONE 25 MG TAB PO SCH (09:00)
[2022-03-03] MEDS ORDERED: FUROSEMIDE 40 MG TAB PO SCH (09:00)
[2022-03-03] MEDS ORDERED: SODIUM CHLORIDE 0.9% 1,000 ML IV SCH (11:00)
--- NOTE | 2022-03-03 11:05 | P.NPCON ---
History of Present Illness - Reason for Consult acute renal failure - History of Present Illness Reason for consultation: Acute kidney injury History of present illness: Patient is a 71-year-old male seen in renal consultation for acute kidney injury. Patient was seen and examined in the emergency room. Patient's creatinine in December 2021 was near 1 and was elevated at 1.85 this admission yesterday. Patient presented to the hospital due to abdominal discomfort and diarrhea which started about 4-5 days ago. Patient denies any recent travel. Patient denies getting any recent vaccines. Patient denies any prior history of colitis. Patient states he's been having 4-5 loose bowel movements daily. Oral intake has been poor. Denies use of nonsteroidals. No vomiting. Has been voiding. No hematuria or dysuria. No chest pain or shortness of breath. No edema. He does a history of diabetes. Denies family history of renal disease. No fever or chills. No cough. He does have history of coronary disease with multiple stents as well as CABG. Patient's blood pressure has been in the systo lic 70s to 90s this admission. He was taking Lasix at home which is held. He did receive 2 liters of normal saline bolus on admission and is currently maintained on normal saline at 75 mL an hour. Vital signs are stable. Blood pressure on the lower side. General: Awake and alert. No acute distress. HEENT: Head exam is unremarkable. LUNGS: Breath sounds decreased. HEART: Rate and Rhythm are regular. ABDOMEN: Soft, obese. No distention. No tenderness. EXTREMITITES: No edema. Past Medical History Past Medical History: COPD, CVA/TIA, Diabetes Mellitus, GERD/Reflux, Hyperlipidemia, Hypertension, Myocardial Infarction ([place]), Renal Disease Additional Past Medical History / Comment(s): COPD, CVA 1997, carotid artery disease, diabetes mellitus, chronic back pain, tenosynovitis involving the wrists and hands bilaterally, chronic renal failure, mild aortic stenosis with a peak gradient across the aortic valve of 70 mmHg; three heart attacks, last in 2001 Last Myocardial Infarction Date:: 2001 History of Any Multi-Drug Resistant Organisms: None Reported Past Surgical History: Coronary Bypass/CABG, Heart Catheterization With Stent, Hernia Repair Additional Past Surgical History / Comment(s): March 1998 Cabg TRIPLE vessel by Dr. Ge. [facility] with 3 stents. 4th stent 2016 at [place], COLONOSCOPY, pneumothorax Past Anesthesia/Blood Transfusion Reactions: No Reported Reaction Date of Last Stent Placement:: March 19982015 Past Psychological History: No Psychological Hx Reported Smoking Status: Former smoker Past Alcohol Use History: None Reported Past Drug Use History: None Reported - Past Family History Father Family Medical History: Cancer Additional Family Medical History / Comment(s): Leukemia Father of leukemia at age 32yrs Mother Family Medical History: COPD Additional Family Medical History / Comment(s): Mother was 76 when she . She had mental illness. Sister(s) Family Medical History: Coronary Artery Disease (CAD), CVA/TIA Brother(s) Family Medical History: Coronary Artery Disease (CAD) Medications and Allergies Home Medications Medication Instructions Recorded Confirmed Type Amiodarone [Cordarone] 200 mg PO DAILY 11/02/21 03/02/22 History Apixaban [Eliquis] 5 mg PO BID 11/02/21 03/02/22 History Escitalopram [Lexapro] 20 mg PO DAILY 11/02/21 03/02/22 History Furosemide [Lasix] 40 mg PO DAILY 01/17/22 03/02/22 History Ascorbic Acid [Vitamin C] 1,000 mg PO DAILY 03/02/22 03/02/22 History Cholecalciferol [Vitamin D3 (125 125 mcg PO DAILY 03/02/22 03/02/22 History Mcg = 5000 Iu)] QUEtiapine [SEROquel] 50 mg PO HS 03/02/22 03/02/22 History Spironolactone [Aldactone] 50 mg PO DAILY 03/02/22 03/02/22 History Zinc 50 mg PO DAILY 03/02/22 03/02/22 History metFORMIN HCL 500 mg PO BID 03/02/22 03/02/22 History sitaGLIPtin PHOSPHATE [Januvia] 100 mg PO DAILY 03/02/22 03/02/22 History Allergies Allergy/AdvReac Type Severity Reaction Status Date / Time codeine Allergy Unknown Verified 03/02/22 14:59 Childhood morphine Allergy Unknown Verified 03/02/22 14:59 Childhood Physical Exam Vitals: Vital Signs Temp Pulse Resp BP Pulse Ox 03/03/22 08:56 107 H 18 98/76 95 03/03/22 04:30 90 16 94/62 03/03/22 02:30 84 15 90/53 03/03/22 01:45 96 16 90/53 03/02/22 23:00 85 16 98/66 98 03/02/22 21:51 80 16 86/66 03/02/22 20:41 70 16 101/66 03/02/22 18:56 97.5 F L 91 16 93/67 99 03/02/22 18:18 94 18 93/66 100 03/02/22 17:32 101 H 18 91/61 100 03/02/22 17:00 98 18 83/57 100 03/02/22 16:48 105 H 16 71/47 100 03/02/22 16:30 105 H 18 73/56 100 03/02/22 16:00 108 H 18 78/48 99 03/02/22 15:30 105 H 18 84/54 100 03/02/22 14:53 97.5 F L 114 H 16 89/54 100 Results - Lab Results Most recent lab results Calcium 8.9 mg/dL (8.4-10.2) 03/02/22 15:29 Phosphorus 4.7 mg/dL (2.5-4.5) H 03/02/22 15:29 Magnesium 2.0 mg/dL (1.6-2.3) 03/02/22 15:29 03/02/22 15:29 03/02/22 15:29 Assessment and Plan Plan: Assessment: 1. Acute kidney injury mostly prerenal secondary to hypotension and hypovolemia from diarrhea and Lasix. Creatinine 1.85 on admission. Creatinine near and December 2021. No hydronephrosis noted on CAT scan. UA benign. 2. Diarrhea/colitis. On antibiotics. 3. Diabetes mellitus. 4. Metabolic acidosis secondary to acute kidney injury, metformin, and GI losses. 5. Chronic diastolic CHF. 6. History of A. fib maintained on liquids and amiodarone. Plan: Maintain normal saline at 75 mL an hour. Continue to hold diuretics. Add oral bicarb. Avoid nephrotoxins. Continue to monitor renal function and urine output. Check a.m. cortisol level. Thank you for the consultation. I will continue to follow patient with you during his hospital stay.
--- NOTE | 2022-03-03 11:16 | P.HPIM ---
History of Present Illness H&P Date: 03/03/22 HISTORY OF PRESENT ILLNESS This is a 71-year-old male patient of Dr. Saleh AND Dr. Mcfarland. He has a past medical history of COPD, coronary artery disease status post 3 vessel CABG in 1997, coronary stents, diabetes mellitus type 2, hyperlipidemia, history of stroke, history of non-ST elevated myocardial infarction, TIA, carotid stenosis, chronic back pain. He does have history of pneumothorax that required transfer to [facility] where he had VATS procedure done in August 2021. History of Covid 19 09/[address] [facility]. Patient was last hospitalized in December which time he was treated for sepsis secondary to C. difficile colitis, acute kidney injury. Patient was discharged to [facility] and was subsequently discharged from [facility] about one month ago. He states he is able to stand on his own and ambulate with a walker. He has had follow-up appointment with Dr. Navas after he left [facility] about one month ago. Patient states he saw his cotton tier to days ago and he is to return in 2 weeks for monitor. Patient states that he was sitting in his chair and began to feel weak and dizzy and felt like he couldn't hold himself up. Patient has had ongoing problems with diarrhea since last hospitalization. C. difficile toxin was negative yesterday. Stool lactoferrin positive. Stool rotavirus negative. Stool culture in process. Blood pressure is typically on the lower side. Patient was found to be afebrile, heart rate 114, blood pressure 89/54, pulse ox 100%. Blood pressure has remained consistently on the lower side. EKG is atrial tachycardia occasional PVCs WBC 11.5, he will go to 10.4, platelet count 248. Sodium 132, potassium 5.0, chloride 103, CO2 18, BUN 52 creatinine 1.85. Blood sugar 152. INR 1.1. Urinalysis revealed moderate leukoesterase, 7 WBC lactic acid 2.6. Troponin negative. Liver function tests within normal limits. ProBNP 2690. Chest x-ray reveals pleural diaphragmatic scarring left lung base. No heart failure. CAT scan of the abdomen and pelvis without contrast reveals some mild wall thickening of the sigmoid colon consistent with mild colitis with improvement compared to old exam. Clearing of large bowel ileus pattern compared to old. Scarring and atelectasis at the lung bases. Patient is status post 2 L of normal saline then 130 ML's per hour, one dose each of oral Levaquin and oral Flagyl, Zofran. Consults added for nephrology and GI. REVIEW OF SYSTEMS Constitutional: No fever, no chills, no night sweats. No weight change. R eports chronic weakness, no fatigue no lethargy. No daytime sleepiness. EENT: No headache. No blurred vision or double vision, no loss of vision. No loss of Hearing, no ringing in the ears, no dizziness. No nasal drainage or congestion. No epistaxis. No sore throat. Lungs: No shortness of breath, cough, no sputum production. No wheezing. Cardiovascular: No chest pain, no lower extremity edema. No palpitations. No paroxysmal nocturnal dyspnea. No orthopnea. Reports lightheadedness or d izziness. No syncopal episodes. Abdominal: No abdominal pain. No nausea, vomiting. Reports diarrhea. No constipation. No bloody or tarry stools. No loss of appetite. Genitourinary: No dysuria, increased frequency, urgency. No urinary retention. Musculoskeletal: No myalgias. Reports muscle weakness, reports chronic gait dysfunction, no frequent falls. No back pain. No neck pain. Integumentary: No wounds, no lesions. No rash or pruritus. No unusual bruising. No change in hair or nails. Neurologic: No aphasia. No facial droop. No change in mentation. No head injury. No headache. No paralysis. No paresthesia. Psychiatric: No depression. No anxiety. No mood swings. Endocrine: No abnormal blood sugars. No weight change. No excessive sweating or thirst. No cold intolerance. SOCIAL HISTORY Patient was a smoker and quit in 1997. No alcohol use and no marijuana or illicit drug use. Patient is and lives at home with his . He does not utilize oxygen, nebulizer, CPAP. . FAMILY HISTORY Mother at age 76. Father at age 32 from leukemia. Patient has 2 sisters one had history of stroke 1 coronary artery disease. Patient has 1 mother with coronary artery disease. PHYSICAL EXAMINATION Gen: This is a 71-year-old male. He is resting on the ER stretcher and appears to be comfortable and in no acute distress. HEENT: Head is atraumatic, normocephalic. Pupils equal, round. Sclerae is anicteric. Dentition is in very poor order. NECK: Supple. No JVD. No lymphadenopathy. No thyromegaly. LUNGS: Clear to auscultation. No wheezes or rhonchi. No intercostal retract ions. HEART: Regular rate and rhythm. No murmur. Tachycardia. ABDOMEN: Soft. Bowel sounds are present. No masses. No tenderness. EXTREMITIES: No pedal edema. No calf tenderness. Dorsalis pedis +2 bilaterally. NEUROLOGICAL: Patient is awake, alert and oriented x3. Cranial nerves 2 through 12 are grossly intact. ASSESSMENT AND PLAN 1. Hypotension. Patient is status post 2 L IV fluid, continue IV fluids at 0.9 at 75 mL per hour, orthostatic vital signs. 2. Acute colitis. Consult with GI, continue Levaquin and Flagyl, C. difficile toxin was negative, stool culture in progress. 3. Acute kidney injury. Patient is status post 2 L of IV fluids, continue IV fluids decreased to 75 mL per hour, consult with nephrology, avoid nephrotoxic agents. Hold Lasix, metformin Aldactone. 4. Possible acute urinary tract infection. Patient is currently on Levaquin. Await urine culture. 5. Lactic acidosis secondary to acute kidney injury. 6. Chronic persistent atrial fibrillation with previous cardioversion 2. Continue amiodarone, eliquis. 7. Hypertension. Hold Lasix and Aldactone. 8. Hyperlipidemia. Patient is not currently on statin. 9. Diabetes mellitus type 2. ContinueTradjenta. Hold metformin. Patient be started on NovoLog scale before meals and at bedtime 10. History of stroke. Continue eliquis for secondary prevention. 11. Peripheral vascular disease with history of carotid stenosis. 12. Chronic kidney disease stage III. Avoid nephrotoxic agents, monitor renal function. 13. Anemia of chronic kidney disease. 14. Generalized debility. ET and OT consults. 15. Chronic back pain. 16. Recurrent depression. Continue Seroquel 50 mg at bedtime, Lexapro 20 mg daily. 17. GI prophylaxis. Protonix. 18. DVT prophylaxis. Eliquis. DISCHARGE PLAN TBD Impression and plan of care have been directed as dictated by the signing physician. Luci Farrar nurse practitioner acting as scribe for signing physician. Past Medical History Past Medical History: COPD, CVA/TIA, Diabetes Mellitus, GERD/Reflux, Hyperlipidemia, Hypertension, Myocardial Infarction ([place]), Renal Disease Additional Past Medical History / Comment(s): COPD, CVA 1997, carotid artery disease, diabetes mellitus, chronic back pain, tenosynovitis involving the wr ists and hands bilaterally, chronic renal failure, mild aortic stenosis with a peak gradient across the aortic valve of 70 mmHg; three heart attacks, last in 2001 Last Myocardial Infarction Date:: 2001 History of Any Multi-Drug Resistant Organisms: None Reported Past Surgical History: Coronary Bypass/CABG, Heart Catheterization With Stent, Hernia Repair Additional Past Surgical History / Comment(s): March 1998 Cabg TRIPLE vessel by Dr. Ge. [facility] with 3 stents. 4th stent 2015 at [place], COLONOSCOPY, pneumothorax Past Anesthesia/Blood Transfusion Reactions: No Reported Reaction Date of Last Stent Placement:: March 19982015 Past Psychological History: No Psychological Hx Reported Smoking Status: Former smoker Past Alcohol Use History: None Reported Past Drug Use History: None Reported - Past Family History Father Family Medical History: Cancer Additional Family Medical History / Comment(s): Leukemia Father of leukemia at age 32yrs Mother Family Medical History: COPD Additional Family Medical History / Comment(s): Mother was 76 when she . She had mental illness. Sister(s) Family Medical History: Coronary Artery Disease (CAD), CVA/TIA Brother(s) Family Medical History: Coronary Artery Disease (CAD) Medications and Allergies Home Medications Medication Instructions Recorded Confirmed Type Amiodarone [Cordarone] 200 mg PO DAILY 11/02/21 03/02/22 History Apixaban [Eliquis] 5 mg PO BID 11/02/21 03/02/22 History Escitalopram [Lexapro] 20 mg PO DAILY 11/02/21 03/02/22 History Furosemide [Lasix] 40 mg PO DAILY 01/17/22 03/02/22 History Ascorbic Acid [Vitamin C] 1,000 mg PO DAILY 03/02/22 03/02/22 History Cholecalciferol [Vitamin D3 (125 125 mcg PO DAILY 03/02/22 03/02/22 History Mcg = 5000 Iu)] QUEtiapine [SEROquel] 50 mg PO HS 03/02/22 03/02/22 History Spironolactone [Aldactone] 50 mg PO DAILY 03/02/22 03/02/22 History Zinc 50 mg PO DAILY 03/02/22 03/02/22 History metFORMIN HCL 500 mg PO BID 03/02/22 03/02/22 History sitaGLIPtin PHOSPHATE [Januvia] 100 mg PO DAILY 03/02/22 03/02/22 History Allergies Allergy/AdvReac Type Severity Reaction Status Date / Time codeine Allergy Unknown Verified 03/02/22 14:59 Childhood morphine Allergy Unknown Verified 03/02/22 14:59 Childhood Physical Exam Vitals: Vital Signs Temp Pulse Resp BP Pulse Ox 03/03/22 04:30 90 16 94/62 03/03/22 02:30 84 15 90/53 03/03/22 01:45 96 16 90/53 03/02/22 23:00 85 16 98/66 98 03/02/22 21:51 80 16 86/66 03/02/22 20:41 70 16 101/66 03/02/22 18:56 97.5 F L 91 16 93/67 99 03/02/22 18:18 94 18 93/66 100 03/02/22 17:32 101 H 18 91/61 100 03/02/22 17:00 98 18 83/57 100 03/02/22 16:48 105 H 16 71/47 100 03/02/22 16:30 105 H 18 73/56 100 03/02/22 16:00 108 H 18 78/48 99 03/02/22 15:30 105 H 18 84/54 100 03/02/22 14:53 97.5 F L 114 H 16 89/54 100 Results CBC & Chem 7: 03/02/22 15:29 03/02/22 15:29 Labs: Abnormal Lab Results - Last 24 Hours (Table) 03/02/22 03/02/22 03/02/22 Range/Units 15:29 15:29 15:29 WBC 11.5 H (3.8-10.6) k/uL RBC 3.34 L (4.30-5.90) m/uL Hgb 10.4 L (13.0-17.5) gm/dL Hct 32.1 L (39.0-53.0) % RDW 17.6 H (11.5-15.5) % Neutrophils # 9.2 H (1.3-7.7) k/uL Lymphocytes # 0.9 L (1.0-4.8) k/uL Sodium 132 L (137-145) mmol/L Carbon Dioxide 18 L (22-30) mmol/L BUN 52 H (9-20) mg/dL Creatinine 1.85 H (0.66-1.25) mg/dL Glucose 152 H (74-99) mg/dL Plasma Lactic Acid Paco (0.7-2.0) mmol/L Phosphorus 4.7 H (2.5-4.5) mg/dL Ur Leukocyte Esterase Moderate H (Negative) Urine WBC 7 H (0-5) /hpf Urine Mucus Rare H (None) /hpf 03/02/22 03/02/22 Range/Units 15:29 19:01 WBC (3.8-10.6) k/uL RBC (4.30-5.90) m/uL Hgb (13.0-17.5) gm/dL Hct (39.0-53.0) % RDW (11.5-15.5) % Neutrophils # (1.3-7.7) k/uL Lymphocytes # (1.0-4.8) k/uL Sodium (137-145) mmol/L Carbon Dioxide (22-30) mmol/L BUN (9-20) mg/dL Creatinine (0.66-1.25) mg/dL Glucose (74-99) mg/dL Plasma Lactic Acid Paco 2.6 H* 3.1 H* (0.7-2.0) mmol/L Phosphorus (2.5-4.5) mg/dL Ur Leukocyte Esterase (Negative) Urine WBC (0-5) /hpf Urine Mucus (None) /hpf
[2022-03-03 12:46] LABS: Glucose,Whole Blood 114 mg/dL (75-99)
[2022-03-03] MEDS: SODIUM BICARBONATE TAB 650 MG TAB PO SCH ×2 (12:53→21:05)
[2022-03-03] MEDS: INSULIN ASPART (NovoLOG) 100 UNIT/ML VIAL SQ SCH ×3 (12:53→21:03)
[2022-03-03 13:00] LABS: African American GFR (CKD) 55 (>60 ml/min/1.73 sqM); Anion Gap 8 mmol/L; Blood Urea Nitrogen 33 mg/dL (9-20); Calcium 8.4 mg/dL (8.4-10.2); Carbon Dioxide 15 mmol/L (22-30); Chloride 112 mmol/L (98-107); Glucose 120 mg/dL (74-99); Magnesium 1.9 mg/dL (1.6-2.3); Non-African American GFR(CKD) 48 (>60 ml/min/1.73 sqM); Potassium 5.1 mmol/L (3.5-5.1); Sodium 135 mmol/L (137-145)
--- NOTE | 2022-03-03 13:44 | P.CONS ---
History of Present Illness - Reason for Consult Consult date: 03/03/22 Colitis Requesting physician: Jovanni Blandon - Chief Complaint Diarrhea, weakness - History of Present Illness This is a pleasant 71-year-old male who presented to the emergency department yesterday with complaints of diarrhea for the last 4-5 days up to 3-4 times a day and increased weakness. States that yesterday he was sitting up in his chair and he felt dizzy lean forward and began to feel the room spinning around him. Apparently the daughters were at the bedside and stated he has not been drinking well at home. He has a past medical history including COPD, coronary artery disease status post three-vessel CABG, coronary stents, diabetes mellitus, hyperlipidemia, history of stroke history of STEMI, TIA, carotid stenosis and chronic back pain. She was hospitalized here in December secondary to sepsis and C. diff colitis. He was treated at that time and also was seen by general surgery for an ileus. He had a colonoscopy done on 01/20/[address] Sam however poor prep and colonoscopy was aborted. He also had a colonoscopy in 09-[address] Sam with findings of 2 colon polyps and mild diverticulosis. Apparently patient had brought in stool samples to the lab yesterday C. diff is a [place] was negative positive lactoferrin, and stool cultures are pending. Patient states he's had 2 loose nonbloody bowel movements through the night. She denies any nausea or vomiting. Denies any abdominal pain. He is afebrile. Admitting labs WBC 11.5 hemoglobin 10.4 hematocrit 32 platelet count 248,001.1 sodium 132 potassium 5.0 BUN 52 creatinine 1.85 glucose 152 magnesium 2.0 total bilirubin 1.1 AST 36 ALT 31 alkaline phosphatase 105 amylase [address] abdomen and pelvis findings include some mild wall thickening of the sigmoid colon consistent with some mild colitis with improvement compared to old exam. There is clearing of the large bowel ileus pattern compared to old exam. There is some scarring and atelectasis in the lung bases without change. Review of Systems REVIEW OF SYSTEMS: CARDIOPULMONARY: No chest pain or shortness of breath. Gastrointestinal: No abdominal pain. No nausea or vomiting. No hematemesis, coffee-ground emesis. No rectal bleeding, or melena. Diarrhea, 3-4 episodes a day. Nonbloody. GENITOURINARY: No dysuria or hematuria. MUSCULOSKELETAL: Reports normal range of motion. Joint pain. SKIN: No rashes. No jaundice. ENDOCRINE: No chills, fevers. No excessive weight gain or loss. No polydipsia or polyuria. PSYCHIATRIC: Unremarkable. NEUROLOGY: No change in mental status. Dizziness, weakness. ENT: Vision unremarkable. CONSTITUTIONAL: No recent weight loss. No fever, chills, night sweats. Past Medical History Past Medical History: COPD, CVA/TIA, Diabetes Mellitus, GERD/Reflux, Hyperlipidemia, Hypertension, Myocardial Infarction (LA), Renal Disease Additional Past Medical History / Comment(s): COPD, CVA 1997, carotid artery disease, diabetes mellitus, chronic back pain, tenosynovitis involving the wrists and hands bilaterally, chronic renal failure, mild aortic stenosis with a peak gradient across the aortic valve of 70 mmHg; three heart attacks, last in 2001 Last Myocardial Infarction Date:: 2001 History of Any Multi-Drug Resistant Organisms: None Reported Past Surgical History: Coronary Bypass/CABG, Heart Catheterization With Stent, Hernia Repair Additional Past Surgical History / Comment(s): March 1998 Cabg TRIPLE vessel by Dr. Ge. [facility] with 3 stents. 4th stent 2015 at [place], COLONOSCOPY, pneumothorax Past Anesthesia/Blood Transfusion Reactions: No Reported Reaction Date of Last Stent Placement:: March 1998, 2015 Past Psychological History: No Psychological Hx Reported Smoking Status: Former smoker Past Alcohol Use History: None Reported Past Drug Use History: None Reported - Past Family History Father Family Medical History: Cancer Additional Family Medical History / Comment(s): Leukemia Father of leukemia at age 32yrs Mother Family Medical History: COPD Additional Family Medical History / Comment(s): Mother was 76 when she . She had mental illness. Sister(s) Family Medical History: Coronary Artery Disease (CAD), CVA/TIA Brother(s) Family Medical History: Coronary Artery Disease (CAD) Medications and Allergies Home Medications Medication Instructions Recorded Confirmed Type Amiodarone [Cordarone] 200 mg PO DAILY 11/02/21 03/02/22 History Apixaban [Eliquis] 5 mg PO BID 11/02/21 03/02/22 History Escitalopram [Lexapro] 20 mg PO DAILY 11/02/21 03/02/22 History Furosemide [Lasix] 40 mg PO DAILY 01/17/22 03/02/22 History Ascorbic Acid [Vitamin C] 1,000 mg PO DAILY 03/02/22 03/02/22 History Cholecalciferol [Vitamin D3 (125 125 mcg PO DAILY 03/02/22 03/02/22 History Mcg = 5000 Iu)] QUEtiapine [SEROquel] 50 mg PO HS 03/02/22 03/02/22 History Spironolactone [Aldactone] 50 mg PO DAILY 03/02/22 03/02/22 History Zinc 50 mg PO DAILY 03/02/22 03/02/22 History metFORMIN HCL 500 mg PO BID 03/02/22 03/02/22 History sitaGLIPtin PHOSPHATE [Januvia] 100 mg PO DAILY 03/02/22 03/02/22 History Allergies Allergy/AdvReac Type Severity Reaction Status Date / Time codeine Allergy Unknown Verified 03/02/22 14:59 Childhood morphine Allergy Unknown Verified 03/02/22 14:59 Childhood Physical Exam Vitals: Vital Signs Temp Pulse Resp BP Pulse Ox 03/03/22 08:56 107 H 18 98/76 95 03/03/22 04:30 90 16 94/62 03/03/22 02:30 84 15 90/53 03/03/22 01:45 96 16 90/53 03/02/22 23:00 85 16 98/66 98 03/02/22 21:51 80 16 86/66 03/02/22 20:41 70 16 101/66 03/02/22 18:56 97.5 F L 91 16 93/67 99 03/02/22 18:18 94 18 93/66 100 03/02/22 17:32 101 H 18 91/61 100 03/02/22 17:00 98 18 83/57 100 03/02/22 16:48 105 H 16 71/47 100 03/02/22 16:30 105 H 18 73/56 100 03/02/22 16:00 108 H 18 78/48 99 03/02/22 15:30 105 H 18 84/54 100 03/02/22 14:53 97.5 F L 114 H 16 89/54 100 General appearance: The patient is alert, oriented, appears in no acute distress. HET: Head is normocephalic and atraumatic. Conjunctiva pink. Sclera anicteric. Neck: Supple without lymphadenopathy. Trachea midline. Heart: S1 S2. Regular rate and rhythm. Lungs: Clear to auscultation. Abdomen: Soft, nontender, nondistended with bowel sounds. No guarding or rigidity. Skin: No rashes. No jaundice. Extremities: Normal skin color and turgor. No pedal edema. Neurological: No focal deficits. Alert and oriented x3. Results CBC & Chem 7: 03/02/22 15:29 03/03/22 12:13 Labs: Abnormal Lab Results - Last 24 Hours (Table) 03/02/22 03/02/22 03/02/22 Range/Units 15:29 15:29 15:29 WBC 11.5 H (3.8-10.6) k/uL RBC 3.34 L (4.30-5.90) m/uL Hgb 10.4 L (13.0-17.5) gm/dL Hct 32.1 L (39.0-53.0) % RDW 17.6 H (11.5-15.5) % Neutrophils # 9.2 H (1.3-7.7) k/uL Lymphocytes # 0.9 L (1.0-4.8) k/uL Sodium 132 L (137-145) mmol/L Carbon Dioxide 18 L (22-30) mmol/L BUN 52 H (9-20) mg/dL Creatinine 1.85 H (0.66-1.25) mg/dL Glucose 152 H (74-99) mg/dL Plasma Lactic Acid Paco (0.7-2.0) mmol/L Phosphorus 4.7 H (2.5-4.5) mg/dL Ur Leukocyte Esterase Moderate H (Negative) Urine WBC 7 H (0-5) /hpf Urine Mucus Rare H (None) /hpf 03/02/22 03/02/22 Range/Units 15:29 19:01 WBC (3.8-10.6) k/uL RBC (4.30-5.90) m/uL Hgb (13.0-17.5) gm/dL Hct (39.0-53.0) % RDW (11.5-15.5) % Neutrophils # (1.3-7.7) k/uL Lymphocytes # (1.0-4.8) k/uL Sodium (137-145) mmol/L Carbon Dioxide (22-30) mmol/L BUN (9-20) mg/dL Creatinine (0.66-1.25) mg/dL Glucose (74-99) mg/dL Plasma Lactic Acid Paco 2.6 H* 3.1 H* (0.7-2.0) mmol/L Phosphorus (2.5-4.5) mg/dL Ur Leukocyte Esterase (Negative) Urine WBC (0-5) /hpf Urine Mucus (None) /hpf Comments: CT abdomen and pelvis findings include some mild wall thickening of the sigmoid colon consistent with some mild colitis with improvement compared to old exam. There is clearing of the large bowel ileus pattern compared to old exam. There is some scarring and atelectasis in the lung bases without change. Assessment and Plan (1) Colitis Narrative/Plan: 71-year-old male who presented to the emergency department brought in by his daughters for increased weakness, diarrhea and dizziness. Patient was recently hospitalized in December of this year for C. diff colitis and not treated. At that time he also had an ileus and was seen by general surgery who attempted to do a colonoscopy on the patient however there was a poor prep but it was incomplete. His last colonoscopy was done in 09-[address] Sam findings of 2 colonic polyps and mild diverticulosis. Stool studies were done yesterday with C. difficile toxin negative and positive lactoferrin. Stool cultures are currently pending. Patient is having 3-4 loose bowel movements, nonbloody day for last 4-5 days. Not associated with abdominal pain, fever, nausea or vomiting. CT of the abdomen shows mild wall thickening in the sigmoid colon however improved from prior CT as well as no ileus. Will treat at this time with antibiotics, no plans on endoscopic evaluation. Current Visit: No Status: Acute Code(s): K52.9 - NONINFECTIVE GASTROENTERITIS AND COLITIS, UNSPECIFIED SNOMED Code(s): 04784633 (2) Acute kidney injury Current Visit: Yes Status: Acute Code(s): N17.9 - ACUTE KIDNEY FAILURE, UNSPECIFIED SNOMED Code(s): 54528633 (3) Coronary artery disease Current Visit: No Status: Acute Code(s): I25.10 - ATHSCL HEART DISEASE OF [place] CORONARY ARTERY W/O ANG PCTRS SNOMED Code(s): 65623861 (4) Hx of CABG Current Visit: No Status: Acute Code(s): Z95.1 - PRESENCE OF AORTOCORONARY BYPASS GRAFT SNOMED Code(s): 817018464 (5) Hyperlipidemia Current Visit: No Status: Acute Code(s): E78.5 - HYPERLIPIDEMIA, UNSPECIFIED SNOMED Code(s): 31050014 Plan: 1. Continue symptomatic and supportive care 2. Continue Levaquin and Flagyl 3. Daily CBC 4. Stool cultures pending 5. No plans on endoscopic evaluation at this time as patient had recent colonoscopy in August 2021 with findings of colon polyps and mild diverticulosis 6. Clear liquid diet, advance as tolerated Thank you for this consultation, we will continue to follow. Dr. Cha Bui I agree with the dictator's note, documented as a scribe by Rhona Costa.
[2022-03-03] MEDS: DEXTROSE 5% IN WATER 1,000 ML with SODIUM BICARB (1 MEQ/ML) 150 ML IV SCH (17:37)
[2022-03-03 17:47] LABS: Glucose,Whole Blood 93 mg/dL (75-99)
[2022-03-03 21:01] LABS: Glucose,Whole Blood 107 mg/dL (75-99)
[2022-03-03] MEDS: LEVOFLOXACIN 250MG-D5W PMX 250 MG in DEXTROSE/WATER 1 50ML.BAG IVPB SCH (21:06)
[2022-03-04] MEDS: metroNIDAZOLE-NS PMX 250 MG in SALINE 1 100ML.BAG IVPB SCH ×2 (00:27→10:14)
[2022-03-04] MEDS: DEXTROSE 5% IN WATER 1,000 ML with SODIUM BICARB (1 MEQ/ML) 150 ML IV SCH ×2 (04:48→23:47)
[2022-03-04 06:56] LABS: Glucose,Whole Blood 90 mg/dL (75-99)
[2022-03-04] MEDS: INSULIN ASPART (NovoLOG) 100 UNIT/ML VIAL SQ SCH ×4 (07:53→20:09)
[2022-03-04] MEDS: ZINC SULFATE 220 MG CAP PO SCH (08:37)
[2022-03-04] MEDS: PANTOPRAZOLE 40 MG TABLET PO SCH (08:37)
[2022-03-04] MEDS: SODIUM BICARBONATE TAB 650 MG TAB PO SCH ×2 (08:37→19:56)
[2022-03-04] MEDS: APIXABAN 5 MG TAB PO SCH ×2 (08:37→19:56)
[2022-03-04] MEDS: CHOLECALCIFEROL 125 MCG (5000 IU) TABLET PO SCH (08:37)
[2022-03-04] MEDS: AMIODARONE 200 MG TAB PO SCH (08:38)
[2022-03-04] MEDS: LINAGLIPTIN 5 MG TABLET PO SCH (08:39)
[2022-03-04] MEDS: ESCITALOPRAM 20 MG TAB PO SCH (08:39)
[2022-03-04 10:33] LABS: HCT 26.6 % (39.6-50.0); HGB 8.4 g/dL (13.0-17.0); MCH 30.3 pg (27.0-32.0); MCHC 31.6 g/dL (32.0-37.0); Mean Platelet Volume 9.7 fL (9.5-12.2); NRBC Per 100 WBC 0 /100 WBCS (0.0-0.0); Platelet Count 170 X 10*3/uL (140-440); RBC 2.77 X 10*6/uL (4.40-5.60); RDW 18.4 % (11.5-14.5); WBC 6.78 X 10*3/uL (4.50-10.00)
[2022-03-04] MEDS: metroNIDAZOLE-NS PMX 500 MG in SALINE 1 100ML.BAG IVPB SCH ×3 (10:33→23:47)
[2022-03-04 11:02] LABS: Albumin/Globulin Ratio 1.5 (1.60-3.17); Anion Gap 8.9 mmol/L (10.00-18.00); BUN/Creat Ratio 16.93 Ratio (12.00-20.00); Blood Urea Nitrogen 23.7 mg/dL (9.0-27.0); Calcium 8.5 mg/dL (8.7-10.3); Carbon Dioxide 19.1 mmol/L (20.0-27.5); Non-African American GFR(CKD) 50.9 (60.0-200.0); Total Bilirubin 0.9 mg/dL (0.30-1.20)
[2022-03-04 11:26] LABS: Glucose,Whole Blood 94 mg/dL (75-99)
[2022-03-04] MEDS ORDERED: COSYNTROPIN 0.25 MG VIAL IVP ONE (11:37)
--- NOTE | 2022-03-04 11:41 | P.PN ---
Subjective Patient is seen in follow for acute kidney injury. Renal function improving. Diarrhea improved. Oral intake fair. Has been voiding. Vital signs are stable. General: Awake. No acute distress. HEENT: Head exam is unremarkable. LUNGS: Breath sounds decreased. HEART: Tachycardic. ABDOMEN: Soft, no distention. EXTREMITITES: No edema. Objective - Vital Signs Vital signs: Vital Signs Temp 98.8 F 03/04/22 04:45 Pulse 112 H 03/04/22 08:00 Resp 18 03/04/22 08:00 BP 91/52 03/04/22 04:45 Pulse Ox 95 03/04/22 04:45 FiO2 Intake & Output 03/03/22 03/04/22 03/04/22 18:59 06:59 18:59 Intake Total 1300 Balance 1300 Weight 86.183 kg Intake: Intake, IV Titration 700 Amount Dextrose 5% in Water 1, 600 000 ml @ 75 mls/hr IV . [id number] ADEN with Sodium Bicarb (1 Meq/ml) 150 ml Rx#:[id number] Levofloxacin 250Mg-D5w 50 Pmx 250 mg In Dextrose/ Water 1 50ml.bag @ 50 mls /hr IVPB HS ADEN Rx#: [id number] metroNIDAZOLE-NS PMX 250 50 mg In Saline 1 100ml.bag @ 100 mls/hr IVPB Q8HR ADEN Rx#:[id number] Oral 600 Other: Voiding Method Urinal Urinal # Voids 5 - Labs CBC & Chem 7: 03/04/22 07:16 03/04/22 07:16 Labs: Abnormal Lab Results - Last 24 Hours (Table) 03/03/22 03/03/22 03/03/22 Range/Units 12:13 12:44 20:59 RBC (4.40-5.60) X 10*6/uL Hgb (13.0-17.0) g/dL Hct (39.6-50.0) % MCHC (32.0-37.0) g/dL RDW (11.5-14.5) % Sodium 135 L (137-145) mmol/L Chloride 112 H (98-107) mmol/L Carbon Dioxide 15 L (22-30) mmol/L Anion Gap (10.00-18.00) mmol/L BUN 33 H (9-20) mg/dL Creatinine 1.48 H (0.66-1.25) mg/dL Est GFR (CKD-EPI)AfAm (60.0-200.0) Est GFR (CKD-EPI)NonAf (60.0-200.0) Glucose 120 H (74-99) mg/dL POC Glucose (mg/dL) 114 H 107 H (75-99) mg/dL Calcium (8.7-10.3) mg/dL Total Protein (6.2-8.2) g/dL Albumin (3.8-4.9) g/dL Albumin/Globulin Ratio (1.60-3.17) g/dL Cortisol (3.1-22.4) ug/dL 03/04/22 03/04/22 Range/Units 07:16 07:16 RBC 2.77 L (4.40-5.60) X 10*6/uL Hgb 8.4 L (13.0-17.0) g/dL Hct 26.6 L (39.6-50.0) % MCHC 31.6 L (32.0-37.0) g/dL RDW 18.4 H (11.5-14.5) % Sodium (137-145) mmol/L Chloride (98-107) mmol/L Carbon Dioxide 19.1 L (22-30) mmol/L Anion Gap 8.90 L (10.00-18.00) mmol/L BUN (9-20) mg/dL Creatinine (0.66-1.25) mg/dL Est GFR (CKD-EPI)AfAm 59.0 L (60.0-200.0) Est GFR (CKD-EPI)NonAf 50.9 L (60.0-200.0) Glucose (74-99) mg/dL POC Glucose (mg/dL) (75-99) mg/dL Calcium 8.5 L (8.7-10.3) mg/dL Total Protein 5.0 L (6.2-8.2) g/dL Albumin 3.0 L (3.8-4.9) g/dL Albumin/Globulin Ratio 1.50 L (1.60-3.17) g/dL Cortisol 2.4 L (3.1-22.4) ug/dL Microbiology - Last 24 Hours (Table) 03/02/22 15:15 Blood Culture - Preliminary Blood No Growth after 24 hours 03/02/22 15:30 Blood Culture - Preliminary Blood No Growth after 24 hours Assessment and Plan Plan: Assessment: 1. Acute kidney injury mostly prerenal secondary to hypotension and hypovolemia from diarrhea and Lasix. Creatinine 1.85 on admission - 1.4 today. Creatinine near and December 2021. No hydronephrosis noted on CAT scan. UA benign. 2. Diarrhea/colitis. On antibiotics. 3. Diabetes mellitus. 4. Metabolic acidosis secondary to acute kidney injury, metformin, and GI losses. On bicarb drip. Better. 5. Chronic diastolic CHF. 6. History of A. fib maintained on eliwuis and amiodarone. 7. Anemia. Rule out iron deficiency. Plan: Maintain bicarbonate drip for another 24 hours. Continue to hold diuretics. Avoid nephrotoxins. Continue to monitor renal function and urine output. Cortisol level low. I will check cosyntropin stimulation test. Check iron studies.
--- NOTE | 2022-03-04 14:09 | P.PN ---
Subjective Progress Note Date: 03/04/22 HISTORY OF PRESENT ILLNESS This is a 71-year-old male patient of Dr. Saleh AND Dr. Mcfarland. He has a past medical history of COPD, coronary artery disease status post 3 vessel CABG in 1997, coronary stents, diabetes mellitus type 2, hyperlipidemia, history of stroke, history of non-ST elevated myocardial infarction, TIA, carotid stenosis, chronic back pain. He does have history of pneumothorax that required transfer to [facility] where he had VATS procedure done in August 2021. History of Covid 19 09/2021 at [facility]. Patient was last hospitalized in December which time he was treated for sepsis secondary to C. difficile colitis, acute kidney injury. Patient was discharged to [facility] and was subsequently discharged from [facility] about one month ago. He states he is able to stand on his own and ambulate with a walker. He has had follow-up appointment with Dr. Navas after he left [facility] about one month ago. Patient states he saw his lactation coordinator to days ago and he is to return in 2 weeks for monitor. Patient states that he was sitting in his chair and began to feel weak and dizzy and felt like he couldn't hold himself up. Patient has had ongoing problems with diarrhea since last hospitalization. C. difficile toxin was negative yesterday. Stool lactoferrin positive. Stool rotavirus negative. Stool culture in process. Blood pressure is typically on the lower side. Patient was found to be afebrile, heart rate 114, blood pressure 89/54, pulse ox 100%. Blood pressure has remained consistently on the lower side. EKG is atrial tachycardia occasional PVCs WBC 11.5, he will go to 10.4, platelet count 248. Sodium 132, potassium 5.0, chloride 103, CO2 18, BUN 52 creatinine 1.85. Blood sugar 152. INR 1.1. Urinalysis revealed moderate leukoesterase, 7 WBC lactic acid 2.6. Troponin negative. Liver function tests within normal limits. ProBNP 2690. Chest x-ray reveals pleural diaphragmatic scarring left lung base. No heart failure. CAT scan of the abdomen and pelvis without contrast reveals some mild wall thickening of the sigmoid colon consistent with mild colitis with improvement compared to old exam. Clearing of large bowel ileus pattern compared to old. Scarring and atelectasis at the lung bases. Patient is status post 2 L of normal saline then 130 ML's per hour, one dose each of oral Levaquin and oral Flagyl, Zofran. Consults added for nephrology and GI. 03/04: Patient has been seen by Dr. Simon with recommendations to continue normal saline at 75 mL per hour, continue to hold diuretics, avoid nephrotoxins and check cortisol level monitor renal function and urine output. nephrology recommends continuing bicarbonate drip for another 24 hours Patient is also been seen by GI with recommendations to continue supportive care, continue Levaquin and Flagyl, advance diet as tolerated, no plan for endoscopy at this time. Patient did have a colonoscopy in August 2021 which found colon polyps and mild diverticulosis. Patient has been afebrile, heart rate 112, blood pressure 91/52, pulse ox 95% on room air. Capillary blood glucose running between 90 and 114. Repeat blood work revealsWBC 6.7, hemoglobin 8.4, platelet count 170. Sodium 136, potassium 5.0, chloride 108, CO2 19, BUN 23 creatinine 1.4. REVIEW OF SYSTEMS Constitutional: No fever, no chills, no night sweats. No weight change. Reports chronic weakness, no fatigue no lethargy. No daytime sleepiness. EENT: No headache. No blurred vision or double vision, no loss of vision. No loss of Hearing, no ringing in the ears, no dizziness. No nasal drainage or congestion. No epistaxis. No sore throat. Lungs: No shortness of breath, cough, no sputum production. No wheezing. Cardiovascular: No chest pain, no lower extremity edema. No palpitations. No paroxysmal nocturnal dyspnea. No orthopnea. Reports lightheadedness or dizziness. No syncopal episodes. Abdominal: No abdominal pain. No nausea, vomiting. Reports diarrhea. No constipation. No bloody or tarry stools. No loss of appetite. Genitourinary: No dysuria, increased frequency, urgency. No urinary retention. Musculoskeletal: No myalgias. Reports muscle weakness, reports chronic gait dysfunction, no frequent falls. No back pain. No neck pain. Integumentary: No wounds, no lesions. No rash or pruritus. No unusual bruising. No change in hair or nails. Neurologic: No aphasia. No facial droop. No change in mentation. No head injury. No headache. No paralysis. No paresthesia. Psychiatric: No depression. No anxiety. No mood swings. Endocrine: No abnormal blood sugars. No weight change. No excessive sweating or thirst. No cold intolerance. PHYSICAL EXAMINATION Gen: This is a 71-year-old male. He is resting on the ER stretcher and appears to be comfortable and in no acute distress. HEENT: Head is atraumatic, normocephalic. Pupils equal, round. Sclerae is anicteric. Dentition is in very poor order. NECK: Supple. No JVD. No lymphadenopathy. No thyromegaly. LUNGS: Clear to auscultation. No wheezes or rhonchi. No intercostal retractions. HEART: Regular rate and rhythm. No murmur. Tachycardia. ABDOMEN: Soft. Bowel sounds are present. No masses. No tenderness. EXTREMITIES: No pedal edema. No calf tenderness. Dorsalis pedis +2 bilaterally. NEUROLOGICAL: Patient is awake, alert and oriented x3. Cranial nerves 2 through 12 are grossly intact. ASSESSMENT AND PLAN 1. Hypotension. Patient is status post 2 L IV fluid, continue IV fluids at 0.9 at 75 mL per hour, orthostatic vital signs. 2. Acute colitis. Consult with GI, continue Levaquin and Flagyl, C. difficile toxin was negative, stool culture in progress. 3. Acute kidney injury. Patient is status post 2 L of IV fluids, continue IV fluids decreased to 75 mL per hour, consult with nephrology, avoid nephrotoxic agents. Hold Lasix, metformin Aldactone. 4. Possible acute urinary tract infection. Patient is currently on Levaquin. Await urine culture. 5. Lactic acidosis secondary to acute kidney injury. 6. Chronic persistent atrial fibrillation with previous cardioversion 2. Continue amiodarone, eliquis. 7. Hypertension. Hold Lasix and Aldactone. 8. Hyperlipidemia. Patient is not currently on statin. 9. Diabetes mellitus type 2. ContinueTradjenta. Hold metformin. Patient be started on NovoLog scale before meals and at bedtime 10. History of stroke. Continue eliquis for secondary prevention. 11. Peripheral vascular disease with history of carotid stenosis. 12. Chronic kidney disease stage III. Avoid nephrotoxic agents, monitor renal function. 13. Anemia of chronic kidney disease. 14. Generalized debility. ET and OT consults. 15. Chronic back pain. 16. Recurrent depression. Continue Seroquel 50 mg at bedtime, Lexapro 20 mg daily. 17. GI prophylaxis. Protonix. 18. DVT prophylaxis. Eliquis. DISCHARGE PLAN TBD Impression and plan of care have been directed as dictated by the signing physician. Luci Farrar nurse practitioner acting as scribe for signing physician. Objective - Vital Signs Vital signs: Vital Signs Temp 98.8 F 03/04/22 04:45 Pulse 112 H 03/04/22 04:45 Resp 18 03/04/22 04:45 BP 91/52 03/04/22 04:45 Pulse Ox 95 03/04/22 04:45 FiO2 Intake & Output 03/03/22 03/04/22 03/04/22 18:59 06:59 18:59 Intake Total 1300 Balance 1300 Weight 86.183 kg Intake: Intake, IV Titration 700 Amount Dextrose 5% in Water 1, 600 000 ml @ 75 mls/hr IV . [id number] ADEN with Sodium Bicarb (1 Meq/ml) 150 ml Rx#:[id number] Levofloxacin 250Mg-D5w 50 Pmx 250 mg In Dextrose/ Water 1 50ml.bag @ 50 mls /hr IVPB HS ADEN Rx#: [id number] metroNIDAZOLE-NS PMX 250 50 mg In Saline 1 100ml.bag @ 100 mls/hr IVPB Q8HR ADEN Rx#:[id number] Oral 600 Other: Voiding Method Urinal # Voids 5 - Labs CBC & Chem 7: 03/04/22 07:16 03/04/22 07:16 Labs: Abnormal Lab Results - Last 24 Hours (Table) 03/03/22 03/03/22 03/03/22 Range/Units 12:13 12:44 20:59 Sodium 135 L (137-145) mmol/L Chloride 112 H (98-107) mmol/L Carbon Dioxide 15 L (22-30) mmol/L BUN 33 H (9-20) mg/dL Creatinine 1.48 H (0.66-1.25) mg/dL Glucose 120 H (74-99) mg/dL POC Glucose (mg/dL) 114 H 107 H (75-99) mg/dL Microbiology - Last 24 Hours (Table) 03/02/22 15:15 Blood Culture - Preliminary Blood No Growth after 24 hours 03/02/22 15:30 Blood Culture - Preliminary Blood No Growth after 24 hours
--- NOTE | 2022-03-04 14:36 | P.PN ---
Subjective Progress Note Date: 03/04/22 Principal diagnosis: This is a pleasant 71-year-old male who presented to the emergency department yesterday with complaints of diarrhea for the last 4-5 days up to 3-4 times a day and increased weakness. States that yesterday he was sitting up in his chair and he felt dizzy lean forward and began to feel the room spinning around him. Apparently the daughters were at the bedside and stated he has not been drinking well at home. He has a past medical history including COPD, coronary artery disease status post three-vessel CABG, coronary stents, diabetes mellitus, hyperlipidemia, history of stroke history of STEMI, TIA, carotid stenosis and chronic back pain. She was hospitalized here in December secondary to sepsis and C. diff colitis. He was treated at that time and also was seen by general surgery for an ileus. He had a colonoscopy done on 01/20/[address] Sam however poor prep and colonoscopy was aborted. He also had a colonoscopy in 09-[address] Sam with findings of 2 colon polyps and mild diverticulosis. Apparently patient had brought in stool samples to the lab yesterday C. diff is a [place] was negative positive lactoferrin, and stool cultures are pending. Patient states he's had 2 loose nonbloody bowel movements through the night. She denies any nausea or vomiting. Denies any abdominal pain. He is afebrile. Admitting labs WBC 11.5 hemoglobin 10.4 hematocrit 32 platelet count 248,001.1 sodium 132 potassium 5.0 BUN 52 creatinine 1.85 glucose 152 magnesium 2.0 total bilirubin 1.1 AST 36 ALT 31 alkaline phosphatase 105 amylase [address] abdomen and pelvis findings include some mild wall thickening of the sigmoid colon consistent with some mild colitis with improvement compared to old exam. There is clearing of the large bowel ileus pattern compared to old exam. There is some scarring and atelectasis in the lung bases without change. 03/04/2022. The patient is seen and examined sleeping in bed. He is easily arousable. He denies any abdominal pain, nausea or vomiting. States his diarrhea is slowing down. He has been afebrile. Nephrology is following for acute kidney injury Objective - Vital Signs Vital signs: Vital Signs Temp 98.8 F 03/04/22 04:45 Pulse 112 H 03/04/22 04:45 Resp 18 06/10/22 04:45 BP 91/52 03/04/22 04:45 Pulse Ox 95 03/04/22 04:45 FiO2 Intake & Output 03/03/22 03/04/22 03/04/22 18:59 06:59 18:59 Intake Total 1300 Balance 1300 Weight 86.183 kg Intake: Intake, IV Titration 700 Amount Dextrose 5% in Water 1, 600 000 ml @ 75 mls/hr IV . [id number] ADEN with Sodium Bicarb (1 Meq/ml) 150 ml Rx#:[id number] Levofloxacin 250Mg-D5w 50 Pmx 250 mg In Dextrose/ Water 1 50ml.bag @ 50 mls /hr IVPB HS ADEN Rx#: [id number] metroNIDAZOLE-NS PMX 250 50 mg In Saline 1 100ml.bag @ 100 mls/hr IVPB Q8HR ADEN Rx#:[id number] Oral 600 Other: Voiding Method Urinal # Voids 5 - Exam General appearance: The patient is alert, oriented, appears in no acute distress. HET: Head is normocephalic and atraumatic. Conjunctiva pink. Sclera anicteric. Neck: Supple without lymphadenopathy. Abdomen: Soft, nontender, nondistended with bowel sounds. No guarding or rigidity. Extremities: Normal skin color and turgor. No pedal edema Skin: No rashes, no jaundice Neurological: No focal deficits. Alert and oriented x 3. - Labs CBC & Chem 7: 03/04/22 07:16 03/04/22 07:16 Labs: Abnormal Lab Results - Last 24 Hours (Table) 03/03/22 03/03/22 03/03/22 Range/Units 12:13 12:44 20:59 Sodium 135 L (137-145) mmol/L Chloride 112 H (98-107) mmol/L Carbon Dioxide 15 L (22-30) mmol/L BUN 33 H (9-20) mg/dL Creatinine 1.48 H (0.66-1.25) mg/dL Glucose 120 H (74-99) mg/dL POC Glucose (mg/dL) 114 H 107 H (75-99) mg/dL Microbiology - Last 24 Hours (Table) 03/02/22 15:15 Blood Culture - Preliminary Blood No Growth after 24 hours 03/02/22 15:30 Blood Culture - Preliminary Blood No Growth after 24 hours Assessment and Plan (1) Colitis Narrative/Plan: 71-year-old male who presented to the emergency department brought in by his daughters for increased weakness, diarrhea and dizziness. Patient was recently hospitalized in December of this year for C. diff colitis and not treated. At that time he also had an ileus and was seen by general surgery who attempted to do a colonoscopy on the patient however there was a poor prep but it was incomplete. His last colonoscopy was done in 09-[address] Sam findings of 2 colonic polyps and mild diverticulosis. Stool studies were done yesterday with C. difficile toxin negative and positive lactoferrin. Stool cultures are currently pending. Patient is having 3-4 loose bowel movements, nonbloody day for last 4- 5 days. Not associated with abdominal pain, fever, nausea or vomiting. CT of the abdomen shows mild wall thickening in the sigmoid colon however improved from prior CT as well as no ileus. Will treat at this time with antibiotics, no plans on endoscopic evaluation. Current Visit: No Status: Acute Code(s): K52.9 - NONINFECTIVE GASTROENTERITIS AND COLITIS, UNSPECIFIED SNOMED Code(s): 33157753 (2) Acute kidney injury Current Visit: Yes Status: Acute Code(s): N17.9 - ACUTE KIDNEY FAILURE, UNSPECIFIED SNOMED Code(s): 82446413 (3) Coronary artery disease Current Visit: No Status: Acute Code(s): I25.10 - ATHSCL HEART DISEASE OF [place] CORONARY ARTERY W/O ANG PCTRS SNOMED Code(s): 21911940 (4) Hx of CABG Current Visit: No Status: Acute Code(s): Z95.1 - PRESENCE OF AORTOCORONARY BYPASS GRAFT SNOMED Code(s): 984446554 (5) Hyperlipidemia Current Visit: No Status: Acute Code(s): E78.5 - HYPERLIPIDEMIA, UNSPECIFIED SNOMED Code(s): 27490497 Plan: 1. Continue symptomatic and supportive care 2. Continue Levaquin and Flagyl 3. Stool cultures pending 4. No plans on endoscopic evaluation at this time as patient had recent colonoscopy in August 2021 with findings of colon polyps and mild diverticulosis 5. Diet as tolerated Thank you for allowing us to participate in the care of the patient, the GI service will sign off, gastroenterology will not be available at the hospital this weekend and through next week. If further evaluation by gastroenterology is required the patient will need transfer as per the primary team's discretion. Dr. Cha Bui I agree with the dictator's note, documented as a scribe by Rhona Costa.
[2022-03-04 17:07] LABS: Glucose,Whole Blood 168 mg/dL (75-99)
[2022-03-04] MEDS: QUEtiapine 50 MG TAB PO SCH (19:58)
[2022-03-04] MEDS: LEVOFLOXACIN 250MG-D5W PMX 250 MG in DEXTROSE/WATER 1 50ML.BAG IVPB SCH (20:05)
[2022-03-04 20:11] LABS: Glucose,Whole Blood 116 mg/dL (75-99)
[2022-03-05 07:21] LABS: Glucose,Whole Blood 101 mg/dL (75-99)
[2022-03-05] MEDS: INSULIN ASPART (NovoLOG) 100 UNIT/ML VIAL SQ SCH ×4 (07:25→20:20)
[2022-03-05] MEDS: metroNIDAZOLE-NS PMX 500 MG in SALINE 1 100ML.BAG IVPB SCH ×2 (07:56→15:39)
[2022-03-05] MEDS: APIXABAN 5 MG TAB PO SCH ×2 (07:57→20:09)
[2022-03-05] MEDS: SODIUM BICARBONATE TAB 650 MG TAB PO SCH ×2 (07:57→20:09)
[2022-03-05] MEDS: PANTOPRAZOLE 40 MG TABLET PO SCH (07:57)
[2022-03-05] MEDS: ESCITALOPRAM 20 MG TAB PO SCH (07:57)
[2022-03-05] MEDS: AMIODARONE 200 MG TAB PO SCH (07:57)
[2022-03-05] MEDS: LINAGLIPTIN 5 MG TABLET PO SCH (07:58)
[2022-03-05] MEDS: ZINC SULFATE 220 MG CAP PO SCH (07:58)
[2022-03-05] MEDS: CHOLECALCIFEROL 125 MCG (5000 IU) TABLET PO SCH (07:58)
[2022-03-05 08:37] LABS: African American GFR (CKD) 70 (>60 ml/min/1.73 sqM); Anion Gap 5 mmol/L; Blood Urea Nitrogen 17 mg/dL (9-20); Calcium 8.3 mg/dL (8.4-10.2); Carbon Dioxide 24 mmol/L (22-30); Chloride 106 mmol/L (98-107); Glucose 95 mg/dL (74-99); Magnesium 1.6 mg/dL (1.6-2.3); Non-African American GFR(CKD) 60 (>60 ml/min/1.73 sqM); Potassium 4.5 mmol/L (3.5-5.1); Sodium 135 mmol/L (137-145)
[2022-03-05] MEDS: SODIUM CHLORIDE 0.9% 1,000 ML IV SCH (10:30)
--- NOTE | 2022-03-05 11:22 | P.PN ---
Subjective Patient is seen in follow for acute kidney injury. Renal function improving. Diarrhea improved. Had 2 bowel movements last night. Oral intake fair. Has been voiding. Oral intake. Vital signs are stable. General: Awake. No acute distress. HEENT: Head exam is unremarkable. LUNGS: Breath sounds decreased. HEART: Regular rate and rhythm. ABDOMEN: Soft, no distention. EXTREMITITES: No edema. Objective - Vital Signs Vital signs: Vital Signs Temp 98.0 F 03/05/22 05:19 Pulse 69 03/05/22 07:50 Resp 18 03/05/22 05:19 BP 97/61 03/05/22 07:50 Pulse Ox 96 03/05/22 05:19 FiO2 Intake & Output 03/04/22 03/05/22 03/05/22 18:59 06:59 18:59 Intake Total 750 Output Total 790 300 Balance -40 -300 Intake: Intake, IV Titration 750 Amount Dextrose 5% in Water 1, 600 000 ml @ 75 mls/hr IV . [id number] ADEN with Sodium Bicarb (1 Meq/ml) 150 ml Rx#:[id number] Levofloxacin 250Mg-D5w 50 Pmx 250 mg In Dextrose/ Water 1 50ml.bag @ 50 mls /hr IVPB HS ADEN Rx#: [id number] metroNIDAZOLE-NS PMX 250 100 mg In Saline 1 100ml.bag @ 100 mls/hr IVPB Q8HR ADEN Rx#:[id number] Output: Urine 790 300 Other: Voiding Method Urinal Urinal Urinal # Voids 3 2 # Bowel Movements 1 - Labs CBC & Chem 7: 03/04/22 07:16 03/05/22 07:28 Labs: Abnormal Lab Results - Last 24 Hours (Table) 03/04/22 03/04/22 03/05/22 Range/Units 17:05 20:09 07:04 Sodium (137-145) mmol/L POC Glucose (mg/dL) 168 H 116 H 101 H (75-99) mg/dL Calcium (8.4-10.2) mg/dL 03/05/22 Range/Units 07:28 Sodium 135 L (137-145) mmol/L POC Glucose (mg/dL) (75-99) mg/dL Calcium 8.3 L (8.4-10.2) mg/dL Microbiology - Last 24 Hours (Table) 03/02/22 15:15 Blood Culture - Preliminary Blood No Growth after 48 hours 03/02/22 15:30 Blood Culture - Preliminary Blood No Growth after 48 hours Assessment and Plan Plan: Assessment: 1. Acute kidney injury mostly prerenal secondary to hypotension and hypovolemia from diarrhea and Lasix. Creatinine 1.85 on admission - 1.22 today. Creatinine near and December 2021. No hydronephrosis noted on CAT scan. UA benign. 2. Diarrhea/colitis. On antibiotics. 3. Diabetes mellitus. 4. Metabolic acidosis secondary to acute kidney injury, metformin, and GI losses. On bicarb drip. Better. 5. Chronic diastolic CHF. 6. History of A. fib maintained on eliwuis and amiodarone. 7. Anemia. Rule out iron deficiency. 8. Hypomagnesemia from poor intake and GI losses. Plan: Stop bicarb drip. Start normal saline at 50 mL an hour. Continue to hold diuretics. Avoid nephrotoxins. Continue to monitor renal function and urine output. Cortisol level low - cosyntropin test cannot be done inpatient. I will add low- dose Cortef. Patient will need to follow-up outpatient with endocrinology. Follow-up iron studies. Replace magnesium.
[2022-03-05 11:55] LABS: Glucose,Whole Blood 146 mg/dL (75-99)
[2022-03-05] MEDS: HYDROCORTISONE 10 MG TAB PO SCH ×2 (12:39→20:09)
[2022-03-05] MEDS: MAGNESIUM SULFATE-D5W PMX 1 GM in DEXTROSE/WATER 1 100ML.BAG IVPB SCH ×2 (12:40→13:45)
[2022-03-05 16:36] LABS: % Iron Saturation 13.71 (15.00-50.00)
[2022-03-05 17:30] LABS: Glucose,Whole Blood 140 mg/dL (75-99)
--- NOTE | 2022-03-05 19:26 | P.PN ---
Subjective Progress Note Date: 03/05/22 71-year-old male who presented to the emergency department yesterday with complaints of diarrhea for the last 4-5 days up to 3-4 times a day and increased weakness. States that yesterday he was sitting up in his chair and he felt dizzy lean forward and began to feel the room spinning around him. Apparently the daughters were at the bedside and stated he has not been drinking well at home. He has a past medical history including COPD, coronary artery disease status post three-vessel CABG, coronary stents, diabetes mellitus, hyperlipidemia, history of stroke history of STEMI, TIA, carotid stenosis and chronic back pain. She was hospitalized here in December secondary to sepsis and C. diff colitis. He was treated at that time and also was seen by general surgery for an ileus. He had a colonoscopy done on 01/20/[address] Sam however poor prep and colonoscopy was aborted. He also had a colonoscopy in by Dr. Sam with findings of 2 colon polyps and mild diverticulosis. Apparently patient had brought in stool samples to the lab yesterday C. diff is a [place] was negative positive lactoferrin, and stool cultures are pending. Patient states he's had 2 loose nonbloody bowel movements through the night. She denies any nausea or vomiting. Denies any abdominal pain. He is afebrile. Admitting labs WBC 11.5 hemoglobin 10.4 hematocrit 32 platelet count 248,001.1 sodium 132 potassium 5.0 BUN 52 creatinine 1.85 glucose 152 magnesium 2.0 total bilirubin 1.1 AST 36 ALT 31 alkaline phosphatase 105 amylase [address] abdomen and pelvis findings include some mild wall thickening of the sigmoid colon consistent with some mild colitis with improvement compared to old exam. There is clearing of the large bowel ileus pattern compared to old exam. There is some scarring and atelectasis in the lung bases without change. Objective - Vital Signs Vital signs: Vital Signs Temp 99.2 F 03/05/22 11:17 Pulse 121 H 03/05/22 11:17 Resp 18 03/05/22 11:17 BP 94/61 03/05/22 11:17 Pulse Ox 98 03/05/22 11:17 FiO2 Intake & Output 03/04/22 03/05/22 03/05/22 18:59 06:59 18:59 Intake Total 750 Output Total 790 300 Balance -40 -300 Intake: Intake, IV Titration 750 Amount Dextrose 5% in Water 1, 600 000 ml @ 75 mls/hr IV . [id number] ADEN with Sodium Bicarb (1 Meq/ml) 150 ml Rx#:[id number] Levofloxacin 250Mg-D5w 50 Pmx 250 mg In Dextrose/ Water 1 50ml.bag @ 50 mls /hr IVPB HS ADEN Rx#: [id number] metroNIDAZOLE-NS PMX 250 100 mg In Saline 1 100ml.bag @ 100 mls/hr IVPB Q8HR ADEN Rx#:[id number] Output: Urine 790 300 Other: Voiding Method Urinal Urinal Urinal # Voids 3 2 # Bowel Movements 1 - Exam General appearance: The patient is alert, oriented, appears in no acute distress. HET: Head is normocephalic and atraumatic. Conjunctiva pink. Sclera anicteric. Neck: Supple without lymphadenopathy. Abdomen: Soft, nontender, nondistended with bowel sounds. No guarding or ri gidity. Extremities: Normal skin color and turgor. No pedal edema Skin: No rashes, no jaundice Neurological: No focal deficits. Alert and oriented x 3. - Labs CBC & Chem 7: 03/04/22 07:16 03/05/22 07:28 Labs: Abnormal Lab Results - Last 24 Hours (Table) 03/04/22 03/04/22 03/05/22 Range/Units 17:05 20:09 07:04 Sodium (137-145) mmol/L POC Glucose (mg/dL) 168 H 116 H 101 H (75-99) mg/dL Calcium (8.4-10.2) mg/dL 03/05/22 03/05/22 Range/Units 07:28 11:19 Sodium 135 L (137-145) mmol/L POC Glucose (mg/dL) 146 H (75-99) mg/dL Calcium 8.3 L (8.4-10.2) mg/dL Microbiology - Last 24 Hours (Table) 03/02/22 15:15 Blood Culture - Preliminary Blood No Growth after 48 hours 03/02/22 15:30 Blood Culture - Preliminary Blood No Growth after 48 hours Assessment and Plan Assessment: 1. Acute colitis 2. Acute renal injury 3. Coronary artery disease/CABG 4. Hyperlipidemia 1. Continue symptomatic and supportive care 2. Continue Levaquin and Flagyl 3. Stool cultures pending 4. No plans on endoscopic evaluation at this time as patient had recent colonoscopy in August 2021 with findings of colon polyps and mild diverticulosis 5. Diet as tolerated
[2022-03-05] MEDS: QUEtiapine 50 MG TAB PO SCH (20:09)
[2022-03-05] MEDS: LEVOFLOXACIN 250MG-D5W PMX 250 MG in DEXTROSE/WATER 1 50ML.BAG IVPB SCH (20:15)
[2022-03-05 20:40] LABS: Glucose,Whole Blood 117 mg/dL (75-99)
[2022-03-06] MEDS: metroNIDAZOLE-NS PMX 500 MG in SALINE 1 100ML.BAG IVPB SCH ×3 (00:43→16:58)
[2022-03-06 06:41] LABS: African American GFR (CKD) 49 (>60 ml/min/1.73 sqM); Anion Gap 6 mmol/L; Blood Urea Nitrogen 19 mg/dL (9-20); Calcium 8.1 mg/dL (8.4-10.2); Carbon Dioxide 22 mmol/L (22-30); Chloride 105 mmol/L (98-107); Glucose 103 mg/dL (74-99); Non-African American GFR(CKD) 42 (>60 ml/min/1.73 sqM); Potassium 4.4 mmol/L (3.5-5.1); Sodium 133 mmol/L (137-145)
[2022-03-06 07:19] LABS: Glucose,Whole Blood 112 mg/dL (75-99)
[2022-03-06] MEDS: SODIUM BICARBONATE TAB 650 MG TAB PO SCH ×2 (08:38→20:35)
[2022-03-06] MEDS: ZINC SULFATE 220 MG CAP PO SCH (08:39)
[2022-03-06] MEDS: ESCITALOPRAM 20 MG TAB PO SCH (08:39)
[2022-03-06] MEDS: APIXABAN 5 MG TAB PO SCH ×2 (08:39→20:35)
[2022-03-06] MEDS: AMIODARONE 200 MG TAB PO SCH (08:39)
[2022-03-06] MEDS: HYDROCORTISONE 10 MG TAB PO SCH (08:39)
[2022-03-06] MEDS: LINAGLIPTIN 5 MG TABLET PO SCH (08:39)
[2022-03-06] MEDS: CHOLECALCIFEROL 125 MCG (5000 IU) TABLET PO SCH (08:39)
[2022-03-06] MEDS: PANTOPRAZOLE 40 MG TABLET PO SCH (08:39)
[2022-03-06] MEDS: INSULIN ASPART (NovoLOG) 100 UNIT/ML VIAL SQ SCH ×4 (08:40→20:42)
--- NOTE | 2022-03-06 10:05 | P.PN ---
Subjective Patient is seen in follow for acute kidney injury. Renal function worse today. Creatinine 1.64. Diarrhea improved. Blood pressure in the systolic 90s. Oral intake fair. Has been voiding. Vital signs are stable. General: Awake. No acute distress. HEENT: Head exam is unremarkable. LUNGS: Breath sounds decreased. HEART: Regular rate and rhythm. ABDOMEN: Soft, no distention. EXTREMITITES: No edema. Objective - Vital Signs Vital signs: Vital Signs Temp 98.0 F 03/06/22 04:18 Pulse 120 H 03/06/22 08:43 Resp 20 03/06/22 04:18 BP 92/60 03/06/22 08:43 Pulse Ox 94 L 03/06/22 04:18 FiO2 Intake & Output 03/05/22 03/06/22 03/06/22 18:59 06:59 18:59 Intake Total 900 400 Output Total 300 Balance 600 400 Intake: Intake, IV Titration 900 Amount Magnesium Sulfate-D5w Pmx 200 1 gm In Dextrose/Water 1 100ml.bag @ 100 mls/hr IVPB Q1H ADEN Rx#: [id number] Sodium Chloride 0.9% 1, 500 000 ml @ 50 mls/hr IV . Q20H ADEN Rx#:[id number] metroNIDAZOLE-NS PMX 500 200 mg In Saline 1 100ml.bag @ 100 mls/hr IVPB Q8HR ADEN Rx#:[id number] Oral 400 Output: Urine 300 Other: Voiding Method Urinal Urinal # Voids 5 - Labs CBC & Chem 7: 03/04/22 07:16 03/06/22 05:58 Labs: Abnormal Lab Results - Last 24 Hours (Table) 03/05/22 03/05/22 03/05/22 Range/Units 07:28 11:19 17:09 Sodium (137-145) mmol/L Creatinine (0.66-1.25) mg/dL Glucose (74-99) mg/dL POC Glucose (mg/dL) 146 H 140 H (75-99) mg/dL Calcium (8.4-10.2) mg/dL Iron 31 L (65-175) ug/dL TIBC 224 L (228-460) ug/dL % Saturation 13.71 L (15.00-50.00) Transferrin 160.0 L (204.0-354.0) mg/dL Ferritin 432.0 H (22.0-322.0) ng/mL 03/05/22 03/06/22 03/06/22 Range/Units 20:20 05:58 07:06 Sodium 133 L (137-145) mmol/L Creatinine 1.64 H (0.66-1.25) mg/dL Glucose 103 H (74-99) mg/dL POC Glucose (mg/dL) 117 H 112 H (75-99) mg/dL Calcium 8.1 L (8.4-10.2) mg/dL Iron (65-175) ug/dL TIBC (228-460) ug/dL % Saturation (15.00-50.00) Transferrin (204.0-354.0) mg/dL Ferritin (22.0-322.0) ng/mL Microbiology - Last 24 Hours (Table) 03/02/22 15:15 Blood Culture - Preliminary Blood No Growth after 72 hours 03/02/22 15:30 Blood Culture - Preliminary Blood No Growth after 72 hours Assessment and Plan Plan: Assessment: 1. Acute kidney injury mostly prerenal secondary to hypotension and hypovolemia from diarrhea and Lasix. Creatinine 1.85 on admission - improved to 1.2 to as of yesterday - 1.64 today. Renal function worse due to hypotension. Creatinine near and December 2021. No hydronephrosis noted on CAT scan. UA benign. 2. Diarrhea/colitis. On antibiotics. Improved. 3. Diabetes mellitus. 4. Metabolic acidosis secondary to acute kidney injury, metformin, and GI losses. On bicarb drip. Better. 5. Chronic diastolic CHF. 6. History of A. fib maintained on eliwuis and amiodarone. 7. Anemia. Iron deficiency noted. 8. Hypomagnesemia from poor intake and GI losses. Replaced. Plan: Increase rate of normal saline to 75 mL an hour. Add IV iron. Continue to hold diuretics. Avoid nephrotoxins. Continue to monitor renal function and urine output. Cortisol level low - cosyntropin test cannot be done inpatient. Oral Cortef was added yesterday but I will start him on IV steroids to see if it helps improve his blood pressure. Patient will need to follow-up outpatient with endocrinology.
[2022-03-06 11:26] LABS: Glucose,Whole Blood 115 mg/dL (75-99)
[2022-03-06] MEDS: SODIUM CHLORIDE 0.9% 1,000 ML IV SCH ×2 (11:30→20:37)
[2022-03-06] MEDS: HYDROCORTISONE SUCCINATE 100 MG/2 ML VIAL IV SCH ×2 (12:44→16:59)
[2022-03-06] MEDS: SODIUM FERRIC GLUCONAT-SUCROSE 125 MG in SODIUM CHLORIDE 0.9% 100 ML IVPB SCH (12:44)
[2022-03-06] MEDS: MIDODRINE 5 MG TAB PO SCH ×2 (12:45→17:35)
[2022-03-06 17:05] LABS: Glucose,Whole Blood 197 mg/dL (75-99)
[2022-03-06 20:34] LABS: Glucose,Whole Blood 232 mg/dL (75-99)
[2022-03-06] MEDS: QUEtiapine 50 MG TAB PO SCH (20:35)
[2022-03-06] MEDS: LEVOFLOXACIN 250MG-D5W PMX 250 MG in DEXTROSE/WATER 1 50ML.BAG IVPB SCH (20:41)
[2022-03-07] MEDS: HYDROCORTISONE SUCCINATE 100 MG/2 ML VIAL IV SCH ×3 (00:09→16:30)
[2022-03-07] MEDS: metroNIDAZOLE-NS PMX 500 MG in SALINE 1 100ML.BAG IVPB SCH ×4 (00:09→23:56)
[2022-03-07 07:18] LABS: Glucose,Whole Blood 160 mg/dL (75-99)
[2022-03-07] MEDS: INSULIN ASPART (NovoLOG) 100 UNIT/ML VIAL SQ SCH ×4 (08:08→21:24)
[2022-03-07] MEDS: AMIODARONE 200 MG TAB PO SCH (08:09)
[2022-03-07] MEDS: ZINC SULFATE 220 MG CAP PO SCH (08:09)
[2022-03-07] MEDS: LINAGLIPTIN 5 MG TABLET PO SCH (08:09)
[2022-03-07] MEDS: APIXABAN 5 MG TAB PO SCH ×2 (08:09→21:24)
[2022-03-07] MEDS: PANTOPRAZOLE 40 MG TABLET PO SCH (08:09)
[2022-03-07] MEDS: CHOLECALCIFEROL 125 MCG (5000 IU) TABLET PO SCH (08:09)
[2022-03-07] MEDS: SODIUM BICARBONATE TAB 650 MG TAB PO SCH ×2 (08:09→21:26)
[2022-03-07] MEDS: MIDODRINE 5 MG TAB PO SCH ×3 (08:09→16:54)
[2022-03-07] MEDS: ESCITALOPRAM 20 MG TAB PO SCH (08:09)
[2022-03-07 09:06] LABS: Magnesium 2.2 mg/dL (1.5-2.4)
[2022-03-07 09:15] LABS: BUN/Creat Ratio 14.07 Ratio (12.00-20.00); Blood Urea Nitrogen 19.7 mg/dL (9.0-27.0); Calcium 8.2 mg/dL (8.7-10.3); Non-African American GFR(CKD) 50.9 (60.0-200.0); Potassium 4.4 mmol/L (3.5-5.5)
[2022-03-07] MEDS: SODIUM FERRIC GLUCONAT-SUCROSE 125 MG in SODIUM CHLORIDE 0.9% 100 ML IVPB SCH (09:59)
[2022-03-07 11:35] LABS: Glucose,Whole Blood 129 mg/dL (75-99)
[2022-03-07 11:41] VITALS: BMI 23.7
[2022-03-07] MEDS: SODIUM CHLORIDE 0.9% 1,000 ML IV SCH ×2 (11:41→21:23)
--- NOTE | 2022-03-07 12:50 | P.PN ---
Subjective Patient is seen for follow-up for acute kidney injury. Renal function has been improving No significant complaints today Serum creatinine at 1.4 mg/dL today Objective - Vital Signs Vital signs: Vital Signs Temp 97.6 F 03/07/22 12:19 Pulse 112 H 03/07/22 12:19 Resp 16 03/07/22 12:19 BP 100/65 03/07/22 12:19 Pulse Ox 98 03/07/22 12:19 FiO2 Intake & Output 03/06/22 03/07/22 03/07/22 18:59 06:59 18:59 Intake Total 590 Balance 590 Weight 86.183 kg Intake: Oral 590 Other: Voiding Method Urinal Urinal # Voids 1 2 # Bowel Movements 1 - Exam Awake, comfortable, not in any acute distress next and examination of the heart S1 and S2 Exertion lungs bilateral breath sounds are heard Abdomen is soft nontender Exertion lower extremities shows no significant edema [employer] exam grossly intact - Labs CBC & Chem 7: 03/04/22 07:16 03/07/22 05:26 Labs: Abnormal Lab Results - Last 24 Hours (Table) 03/06/22 03/06/22 03/07/22 Range/Units 16:58 20:33 05:26 Carbon Dioxide 17.0 L (20.0-27.5) mmol/L Est GFR (CKD-EPI)AfAm 59.0 L (60.0-200.0) Est GFR (CKD-EPI)NonAf 50.9 L (60.0-200.0) Glucose 161 H (70-110) mg/dL POC Glucose (mg/dL) 197 H 232 H (75-99) mg/dL Calcium 8.2 L (8.7-10.3) mg/dL 03/07/22 03/07/22 Range/Units 07:16 11:33 Carbon Dioxide (20.0-27.5) mmol/L Est GFR (CKD-EPI)AfAm (60.0-200.0) Est GFR (CKD-EPI)NonAf (60.0-200.0) Glucose (70-110) mg/dL POC Glucose (mg/dL) 160 H 129 H (75-99) mg/dL Calcium (8.7-10.3) mg/dL Microbiology - Last 24 Hours (Table) 03/02/22 15:30 Blood Culture - Preliminary Blood No Growth after 96 hours 03/02/22 15:15 Blood Culture - Preliminary Blood No Growth after 96 hours Assessment and Plan Assessment: 1. Acute kidney injury mostly prerenal associated with hypotension and hypovolemia currently improved. UA is benign. No evidence of obstruction on ultrasound 2. Diarrhea/colitis maintained on antibiotics and improving 3. Metabolic acidosis associated with acute kidney injury, metformin, GI fluid losses currently improved 4. Chronic diastolic CHF 5. History of A. fib maintained on a liquid's and amiodarone 6. Hypotension with very low cortisol level currently maintained on Solu- Cortef. Cosyntropin stimulation test not done. Plan: Continue to encourage increase oral intake Continuous IV fluids Repeat labs in a.m. Can switch to oral steroids tomorrow it looks like the blood pressure is slightly improved but not much.
[2022-03-07 17:30] LABS: Glucose,Whole Blood 187 mg/dL (75-99)
--- NOTE | 2022-03-07 17:32 | P.PN ---
Subjective Progress Note Date: 03/07/22 Principal diagnosis: This is a pleasant 71-year-old male who presented to the emergency department yesterday with complaints of diarrhea for the last 4-5 days up to 3-4 times a day and increased weakness. States that yesterday he was sitting up in his chair and he felt dizzy lean forward and began to feel the room spinning around him. Apparently the daughters were at the bedside and stated he has not been drinking well at home. He has a past medical history including COPD, coronary artery disease status post three-vessel CABG, coronary stents, diabetes mellitus, hyperlipidemia, history of stroke history of STEMI, TIA, carotid stenosis and chronic back pain. She was hospitalized here in December secondary to sepsis and C. diff colitis. He was treated at that time and also was seen by general surgery for an ileus. He had a colonoscopy done on 01/20/[address] Sam however poor prep and colonoscopy was aborted. He also had a colonoscopy in 09-[address] Sam with findings of 2 colon polyps and mild diverticulosis. Apparently patient had brought in stool samples to the lab yesterday C. diff is a [place] was negative positive lactoferrin, and stool cultures are pending. Patient states he's had 2 loose nonbloody bowel movements through the night. She denies any nausea or vomiting. Denies any abdominal pain. He is afebrile. Admitting labs WBC 11.5 hemoglobin 10.4 hematocrit 32 platelet count 248,001.1 sodium 132 potassium 5.0 BUN 52 creatinine 1.85 glucose 152 magnesium 2.0 total bilirubin 1.1 AST 36 ALT 31 alkaline phosphatase 105 amylase [address] abdomen and pelvis findings include some mild wall thickening of the sigmoid colon consistent with some mild colitis with improvement compared to old exam. There is clearing of the large bowel ileus pattern compared to old exam. There is some scarring and atelectasis in the lung bases without change. 03/04/2022. The patient is seen and examined sleeping in bed. He is easily arousable. He denies any abdominal pain, nausea or vomiting. States his diarrhea is slowing down. He has been afebrile. Nephrology is following for acute kidney injury Patient was seen today for follow-up admitted for abdominal pain and colitis. States his diarrhea has improved and is formed. He denies any abdominal pain nausea or vomiting. He has been afebrile. Denies any fevers or chills. Objective - Vital Signs Vital signs: Vital Signs Temp 97.6 F 03/07/22 12:19 Pulse 111 H 03/07/22 16:53 Resp 16 03/07/22 12:19 BP 102/62 03/07/22 16:53 Pulse Ox 98 03/07/22 12:19 FiO2 Intake & Output 03/06/22 03/07/22 03/07/22 18:59 06:59 18:59 Intake Total 590 Balance 590 Weight 86.183 kg Intake: Oral 590 Other: Voiding Method Urinal Urinal # Voids 1 2 # Bowel Movements 1 - Exam General appearance: The patient is alert, oriented, appears in no acute distress. HET: Head is normocephalic and atraumatic. Conjunctiva pink. Sclera anicteric. Neck: Supple without lymphadenopathy. Abdomen: Soft, nontender, nondistended with bowel sounds. No guarding or rigidity. Extremities: Normal skin color and turgor. No pedal edema Skin: No rashes, no jaundice Neurological: No focal deficits. Alert and oriented x 3. - Labs CBC & Chem 7: 03/04/22 07:16 03/07/22 05:26 Labs: Abnormal Lab Results - Last 24 Hours (Table) 03/06/22 03/07/22 03/07/22 Range/Units 20:33 05:26 07:16 Carbon Dioxide 17.0 L (20.0-27.5) mmol/L Est GFR (CKD-EPI)AfAm 59.0 L (60.0-200.0) Est GFR (CKD-EPI)NonAf 50.9 L (60.0-200.0) Glucose 161 H (70-110) mg/dL POC Glucose (mg/dL) 232 H 160 H (75-99) mg/dL Calcium 8.2 L (8.7-10.3) mg/dL 03/07/22 Range/Units 11:33 Carbon Dioxide (20.0-27.5) mmol/L Est GFR (CKD-EPI)AfAm (60.0-200.0) Est GFR (CKD-EPI)NonAf (60.0-200.0) Glucose (70-110) mg/dL POC Glucose (mg/dL) 129 H (75-99) mg/dL Calcium (8.7-10.3) mg/dL Microbiology - Last 24 Hours (Table) 03/02/22 15:30 Blood Culture - Preliminary Blood No Growth after 96 hours 03/02/22 15:15 Blood Culture - Preliminary Blood No Growth after 96 hours Assessment and Plan (1) Colitis Narrative/Plan: 71-year-old male who presented to the emergency department brought in by his daughters for increased weakness, diarrhea and dizziness. Patient was recently hospitalized in December of this year for C. diff colitis and not treated. At that time he also had an ileus and was seen by general surgery who attempted to do a colonoscopy on the patient however there was a poor prep but it was incomplete. His last colonoscopy was done in 09-[address] Sam findings of 2 colonic polyps and mild diverticulosis. Stool studies were done yesterday with C. difficile toxin negative and positive lactoferrin. Stool cultures are currently pending. Patient is having 3-4 loose bowel movements, nonbloody day for last 4- 5 days. Not associated with abdominal pain, fever, nausea or vomiting. CT of the abdomen shows mild wall thickening in the sigmoid colon however improved from prior CT as well as no ileus. Will treat at this time with antibiotics, no plans on endoscopic evaluation. Diarrhea improved. No abdominal pain, nausea or vomiting. He has been on antibiotics for the last 6 days. He had a previous colitis on antibiotic therapy as well. Current Visit: No Status: Acute Code(s): K52.9 - NONINFECTIVE GASTROENTERITIS AND COLITIS, UNSPECIFIED SNOMED Code(s): 90166415 (2) Acute kidney injury Current Visit: Yes Status: Acute Code(s): N17.9 - ACUTE KIDNEY FAILURE, UNSPECIFIED SNOMED Code(s): 48104283 (3) Coronary artery disease Current Visit: No Status: Acute Code(s): I25.10 - ATHSCL HEART DISEASE OF [place] CORONARY ARTERY W/O ANG PCTRS SNOMED Code(s): 26089825 (4) Hx of CABG Current Visit: No Status: Acute Code(s): Z95.1 - PRESENCE OF AORTOCORONARY BYPASS GRAFT SNOMED Code(s): 123385895 (5) Hyperlipidemia Current Visit: No Status: Acute Code(s): E78.5 - HYPERLIPIDEMIA, UNSPECIFIED SNOMED Code(s): 70083889 Plan: 1. Continue symptomatic and supportive care 2. No plans on endoscopic evaluation 3. Patient will have been on IV antibiotics for the last 6 days duration. Symptoms have improved. We do not recommend patient going home on antibiotics. The patient is cleared from gastroenterology for discharge. Thank you for this consultation, gastroenterology will sign off. Dr. Cha Bui I agree with the dictator's note, documented as a scribe by Rhona Costa.
[2022-03-07 20:04] LABS: Glucose,Whole Blood 171 mg/dL (75-99)
[2022-03-07] MEDS: QUEtiapine 50 MG TAB PO SCH (21:24)
[2022-03-07] MEDS: HYDROCORTISONE 10 MG TAB PO SCH (21:24)
[2022-03-07] MEDS: LEVOFLOXACIN 250MG-D5W PMX 250 MG in DEXTROSE/WATER 1 50ML.BAG IVPB SCH (21:24)
[2022-03-08 05:08] VITALS: RESP 16
[2022-03-08 07:03] LABS: Glucose,Whole Blood 111 mg/dL (75-99)
[2022-03-08] MEDS: INSULIN ASPART (NovoLOG) 100 UNIT/ML VIAL SQ SCH ×2 (08:08→12:19)
[2022-03-08] MEDS: MIDODRINE 5 MG TAB PO SCH ×2 (08:08→13:25)
[2022-03-08] MEDS: ESCITALOPRAM 20 MG TAB PO SCH (08:09)
[2022-03-08] MEDS: ZINC SULFATE 220 MG CAP PO SCH (08:09)
[2022-03-08] MEDS: CHOLECALCIFEROL 125 MCG (5000 IU) TABLET PO SCH (08:09)
[2022-03-08] MEDS: PANTOPRAZOLE 40 MG TABLET PO SCH (08:09)
[2022-03-08] MEDS: AMIODARONE 200 MG TAB PO SCH (08:09)
[2022-03-08] MEDS: LINAGLIPTIN 5 MG TABLET PO SCH (08:09)
[2022-03-08] MEDS: APIXABAN 5 MG TAB PO SCH (08:09)
[2022-03-08] MEDS: SODIUM BICARBONATE TAB 650 MG TAB PO SCH (08:09)
[2022-03-08] MEDS: HYDROCORTISONE 10 MG TAB PO SCH (08:09)
[2022-03-08] MEDS: metroNIDAZOLE-NS PMX 500 MG in SALINE 1 100ML.BAG IVPB SCH (08:42)
[2022-03-08] MEDS: SODIUM FERRIC GLUCONAT-SUCROSE 125 MG in SODIUM CHLORIDE 0.9% 100 ML IVPB SCH (08:43)
[2022-03-08 09:22] LABS: HCT 23.6 % (39.6-50.0); HGB 7.3 g/dL (13.0-17.0); MCH 30.2 pg (27.0-32.0); MCHC 30.9 g/dL (32.0-37.0); MCV 97.5 fL (80.0-97.0); Mean Platelet Volume 9.9 fL (9.5-12.2); NRBC Per 100 WBC 0 /100 WBCS (0.0-0.0); Platelet Count 154 X 10*3/uL (140-440); RBC 2.42 X 10*6/uL (4.40-5.60); RDW 17.6 % (11.5-14.5); WBC 6.64 X 10*3/uL (4.50-10.00)
[2022-03-08 09:41] LABS: Anion Gap 11.9 mmol/L (10.00-18.00); BUN/Creat Ratio 23.09 Ratio (12.00-20.00); Blood Urea Nitrogen 25.4 mg/dL (9.0-27.0); Calcium 8.3 mg/dL (8.7-10.3); Carbon Dioxide 18.1 mmol/L (20.0-27.5); Non-African American GFR(CKD) 68.1 (60.0-200.0); Potassium 4.4 mmol/L (3.5-5.5)
--- NOTE | 2022-03-08 11:16 | P.PN ---
Subjective Patient is seen for follow-up for acute kidney injury. Renal function has been improving as blood pressure has improved. Patient is maintained on Cortef as cortisol level was around 2. No significant complaints today Serum creatinine at 1.1 mg/dL today Objective - Vital Signs Vital signs: Vital Signs Temp 97.4 F L 03/08/22 05:00 Pulse 104 H 03/08/22 08:45 Resp 16 03/08/22 08:00 BP 130/65 03/08/22 08:45 Pulse Ox 97 03/08/22 05:00 FiO2 Intake & Output 03/07/22 03/08/22 03/08/22 18:59 06:59 18:59 Intake Total 1050 1100 Output Total 300 Balance 1050 800 Weight 86.183 kg Intake: Intake, IV Titration 1050 1100 Amount Levofloxacin 250Mg-D5w 100 Pmx 250 mg In Dextrose/ Water 1 50ml.bag @ 50 mls /hr IVPB HS [facility] Rx#: [id number] Sodium Chloride 0.9% 1, 750 900 000 ml @ 75 mls/hr IV . 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 CASER exam grossly intact - Labs CBC & Chem 7: 03/08/22 05:44 03/08/22 05:44 Labs: Abnormal Lab Results - Last 24 Hours (Table) 03/07/22 03/07/22 03/07/22 Range/Units 11:33 17:28 20:02 RBC (4.40-5.60) X 10*6/uL Hgb (13.0-17.0) g/dL Hct (39.6-50.0) % MCV (80.0-97.0) fL MCHC (32.0-37.0) g/dL RDW (11.5-14.5) % Chloride (96-109) mmol/L Carbon Dioxide (20.0-27.5) mmol/L BUN/Creatinine Ratio (12.00-20.00) Ratio Glucose (70-110) mg/dL POC Glucose (mg/dL) 129 H 187 H 171 H (75-99) mg/dL Calcium (8.7-10.3) mg/dL 03/08/22 03/08/22 03/08/22 Range/Units 05:44 05:44 07:01 RBC 2.42 L (4.40-5.60) X 10*6/uL Hgb 7.3 L (13.0-17.0) g/dL Hct 23.6 L (39.6-50.0) % MCV 97.5 H (80.0-97.0) fL MCHC 30.9 L (32.0-37.0) g/dL RDW 17.6 H (11.5-14.5) % Chloride 112 H (96-109) mmol/L Carbon Dioxide 18.1 L (20.0-27.5) mmol/L BUN/Creatinine Ratio 23.09 H (12.00-20.00) Ratio Glucose 111 H (70-110) mg/dL POC Glucose (mg/dL) 111 H (75-99) mg/dL Calcium 8.3 L (8.7-10.3) mg/dL Microbiology - Last 24 Hours (Table) 03/02/22 15:15 Blood Culture - Preliminary Blood No Growth after 120 hours 03/02/22 15:30 Blood Culture - Preliminary Blood No Growth after 120 hours Assessment and Plan Assessment: 1. Acute kidney injury mostly prerenal associated with hypotension and hypovolemia currently improved. UA is benign. No evidence of obstruction on ultrasound 2. Diarrhea/colitis maintained on antibiotics and improving 3. Metabolic acidosis associated with acute kidney injury, metformin, GI fluid losses currently improved 4. Chronic diastolic CHF 5. History of A. fib maintained on a liquid's and amiodarone 6. Hypotension with very low cortisol level currently maintained on Cortef Cosyntropin stimulation test not done. Follow-up with endocrinology post discharge Plan: Continue to encourage increase oral intake Follow-up with endocrinology post discharge Continue with Cortef. Can decrease to 5 mg twice a day in 2-3 days
[2022-03-08 11:42] LABS: Glucose,Whole Blood 85 mg/dL (75-99)
[2022-03-08 13:03] VITALS: TEMP 97.7
[2022-03-08 13:14] VITALS: BP 114/70; PULSE 99
--- NOTE | 2022-03-09 15:37 | P.PN ---
Subjective Progress Note Date: 03/07/22 71-year-old male who presented to the emergency department yesterday with complaints of diarrhea for the last 4-5 days up to 3-4 times a day and increased weakness. States that yesterday he was sitting up in his chair and he felt dizzy lean forward and began to feel the room spinning around him. Apparently the daughters were at the bedside and stated he has not been drinking well at home. He has a past medical history including COPD, coronary artery disease status post three-vessel CABG, coronary stents, diabetes mellitus, hyperlipidemia, history of stroke history of STEMI, TIA, carotid stenosis and chronic back pain. She was hospitalized here in December secondary to sepsis and C. diff colitis. He was treated at that time and also was seen by general surgery for an ileus. He had a colonoscopy done on 01/20/[address] Sam however poor prep and colonoscopy was aborted. He also had a colonoscopy in by Dr. Sam with findings of 2 colon polyps and mild diverticulosis. Adrienne arently patient had brought in stool samples to the lab yesterday C. diff is a [place] was negative positive lactoferrin, and stool cultures are pending. Patient states he's had 2 loose nonbloody bowel movements through the night. She denies any nausea or vomiting. Denies any abdominal pain. He is afebrile. Admitting labs WBC 11.5 hemoglobin 10.4 hematocrit 32 platelet count 248,001.1 sodium 132 potassium 5.0 BUN 52 creatinine 1.85 glucose 152 magnesium 2.0 total bilirubin 1.1 AST 36 ALT 31 alkaline phosphatase 105 amylase [address] abdomen and pelvis findings include some mild wall thickening of the sigmoid colon consistent with some mild colitis with improvement compared to old exam. There is clearing of the large bowel ileus pattern compared to old exam. There is some scarring and atelectasis in the lung bases without change. 03/07/2022 Patient is seen in follow-up today currently maintained on IV antibiotics and also being closely followed in nephrology. Patient blood pressure on the lower side of 95/67 and maintained on midodrine. Heart rate continues to be mildly elevated and creatinine mildly trending down at one point for. Patient currently maintained on IV antibiotics in the form of Levaquin and Flagyl and will continue. Patient also started on low dose Solu-Cortef by nephrology and will discuss further about continuing or a prednisone taper on discharge. Patient is currently afebrile and denies any shortness of breath or chest pain. Review of systems: Constitutional: No reports of fatigue, fever, or chills Cardiovascular: No reports of chest pain or palpitations Respiratory: No reports of shortness of breath or cough GI: No reports of nausea, vomiting, reports more formed stool,less frequent : No reports of dysuria or retention Neurovascular: No reports of weakness or numbness All medications have been reviewed Active Medications Acetaminophen (Acetaminophen Tab 325 Mg Tab) 650 mg PO Q6HR PRN PRN Reason: Mild Pain or Fever > 100.5 Amiodarone HCl (Amiodarone 200 Mg Tab) 200 mg PO DAILY [facility] Last Admin: 03/07/22 08:09 Dose: 200 mg Apixaban (Apixaban 5 Mg Tab) 5 mg PO BID [facility]; Protocol Last Admin: 03/07/22 08:09 Dose: 5 mg Cholecalciferol (Cholecalciferol 125 Mcg (5000 Iu) Tablet) 125 mcg PO DAILY [facility] Last Admin: 03/07/22 08:09 Dose: 125 mcg Escitalopram Oxalate (Escitalopram 20 Mg Tab) 20 mg PO DAILY [facility] Last Admin: 03/07/22 08:09 Dose: 20 mg Hydrocortisone Sodium Succinate (Hydrocortisone Succinate 100 Mg/2 Ml Vial) 50 mg IV Q8HR [facility] Last Admin: 03/07/22 09:58 Dose: 50 mg Levofloxacin/Dextrose 250 mg/ (IV Solution) 50 mls @ 50 mls/hr IVPB HS [facility]; Protocol Last Admin: 03/06/22 20:41 Dose: 50 mls/hr Metronidazole 500 mg/ IV (Solution) 100 mls @ 100 mls/hr IVPB Q8HR [facility] Last Admin: 03/07/22 08:08 Dose: 100 mls/hr Sodium Chloride (Saline 0.9%) 1,000 mls @ 75 mls/hr IV .[id number] [facility] Last Admin: 03/07/22 11:41 Dose: 75 mls/hr Ferric Sodium Gluconate 125 mg (/ Sodium Chloride) 110 mls @ 100 mls/hr IVPB DAILY [facility] Stop: 03/09/22 11:01 Last Admin: 03/07/22 09:59 Dose: 100 mls/hr Insulin Aspart (Insulin Aspart (Novolog) 100 Unit/Ml Vial) 0 unit SQ ACHS [facility]; Protocol Last Admin: 03/07/22 11:39 Dose: Not Given Linagliptin (Linagliptin 5 Mg Tablet) 5 mg PO DAILY [facility] Last Admin: 03/07/22 08:09 Dose: 5 mg Midodrine (Midodrine 5 Mg Tab) 5 mg PO AC-TID [facility] Last Admin: 03/07/22 12:01 Dose: 5 mg Naloxone HCl (Naloxone 0.4 Mg/Ml 1 Ml Vial) 0.2 mg IV Q2M PRN PRN Reason: Opioid Reversal Ondansetron HCl (Ondansetron 4 Mg/2 Ml Vial) 4 mg IVP Q8HR PRN PRN Reason: Nausea And Vomiting Pantoprazole Sodium (Pantoprazole 40 Mg Tablet) 40 mg PO AC-BRKFST [facility] Last Admin: 03/07/22 08:09 Dose: 40 mg Quetiapine Fumarate (Quetiapine 50 Mg Tab) 50 mg PO HS [facility] Last Admin: 03/06/22 20:35 Dose: 50 mg Sodium Bicarbonate (Sodium Bicarbonate Tab 650 Mg Tab) 650 mg PO BID [facility] Last Admin: 03/07/22 08:09 Dose: 650 mg Zinc Sulfate (Zinc Sulfate 220 Mg Cap) 220 mg PO DAILY [facility] Last Admin: 03/07/22 08:09 Dose: 220 mg Physical exam: General appearance: 71 year old male who is awake and oriented, appears in no acute distress. HET: Head is normocephalic and atraumatic. Conjunctiva pink. Sclera anicteric. Neck: Supple without lymphadenopathy. Abdomen: Soft, nontender, nondistended with bowel sounds. No guarding or rigidity. Extremities: no clubbing or cyanosis noted. No pedal edema Skin: No rashes, or lesions noted Neurological: No focal deficits. Alert and oriented x 3. Assessment: -Acute colitis -Acute renal injury -History of Coronary artery disease/CABG -hypotension -Hyperlipidemia -GI prophylaxis -DVT prophylaxis -Full code Plan: Recommend to continue to monitor vital signs and labs closely. Follow up on am bmp and monitor blood pressure. Patient is currently continued on IV abx and will discontinue on discharge as patient has had one week on abx. GI evaluated the patient recommending outpatient follow up as discussed. Will discuss with nephrology about steroids as patient was started on low dose cortef. Encouraged oral intake. IF blood pressure stable and labs within normal limits will consid er discharge in 24 hours. Due to multiple medical conditions, prognosis is guarded. The impression and plan of care has been dictated by Mary Oviedo, Nurse Practitioner as directed. Dr. Dylan MD I have performed a history and examination and MDM of this patient, discussed the same with the dictator, and agree with the dictator's assessment and plan as written ,documented as a scribe. Based on total visit time, I have performed more than 50% of the visit. Objective - Vital Signs Vital signs: Vital Signs Temp 98.0 F 03/07/22 05:00 Pulse 114 H 03/07/22 08:07 Resp 16 03/07/22 05:00 BP 95/57 03/07/22 08:07 Pulse Ox 98 03/07/22 08:07 FiO2 Intake & Output 03/06/22 03/07/22 03/07/22 18:59 06:59 18:59 Intake Total 590 Balance 590 Intake: Oral 590 Other: Voiding Method Urinal Urinal # Voids 1 2 # Bowel Movements 1 - Labs CBC & Chem 7: 03/04/22 07:16 03/07/22 05:26 Labs: Abnormal Lab Results - Last 24 Hours (Table) 03/06/22 03/06/22 03/06/22 Range/Units 11:24 16:58 20:33 Carbon Dioxide (20.0-27.5) mmol/L Est GFR (CKD-EPI)AfAm (60.0-200.0) Est GFR (CKD-EPI)NonAf (60.0-200.0) Glucose (70-110) mg/dL POC Glucose (mg/dL) 115 H 197 H 232 H (75-99) mg/dL Calcium (8.7-10.3) mg/dL 03/07/22 03/07/22 Range/Units 05:26 07:16 Carbon Dioxide 17.0 L (20.0-27.5) mmol/L Est GFR (CKD-EPI)AfAm 59.0 L (60.0-200.0) Est GFR (CKD-EPI)NonAf 50.9 L (60.0-200.0) Glucose 161 H (70-110) mg/dL POC Glucose (mg/dL) 160 H (75-99) mg/dL Calcium 8.2 L (8.7-10.3) mg/dL Microbiology - Last 24 Hours (Table) 03/02/22 15:30 Blood Culture - Preliminary Blood No Growth after 96 hours 03/02/22 15:15 Blood Culture - Preliminary Blood No Growth after 96 hours
--- NOTE | 2022-03-09 15:43 | P.DS ---
Providers Date of admission: 03/02/22 22:47 Expected date of discharge: 03/08/22 Attending physician: Jovanni Blandon Consults: 03/03/22 08:07 Consult Physician Routine Consulting Provider: Ky Simon Consult Reason/Comments: geogrina Do you want consulting provider notified?: Yes Primary care physician: Randy Saleh [facility] Course: Final diagnosis -Acute colitis -Acute renal injury possibly secondary to diarrhea and dehydration -History of Coronary artery disease/CABG -hypotension -Hyperlipidemia -GI prophylaxis -DVT prophylaxis -Full code Discharge disposition Patient is being discharged in a stable condition with guarded prognosis to home and will have continued home care. Patient will follow-up with Dr. Saleh in the outpatient setting upon discharge. Patient is to follow-up with nephrology, endocrine, GI as scheduled. Patient will continue on a Cortef taper along with sodium bicarb and recommend repeat labs in 2-3 days with close outpatient follow-up with nephrology and endocrine in one week. Total time taken is greater than 35 minutes. Hospital course This is a 71-year-old male who was recently admitted with increasing weakness along with diarrhea that have been ongoing for the last 4 or 5 days and not eating and drinking well and being conservatively treated for colitis and was evaluated by GI along with nephrology for kidney injury. Patient also having hypotension and maintained on midodrine and also started on Cortef and will continue with a Cortef taper and recommend endocrine follow-up in one week. Recommend repeat labs in 2-3 days to monitor kidney functions and electrolytes. Patient reports to feeling much better and stool is becoming more formed and denies any further abdominal pain. Patient tolerating diet and will follow-up with GI as well in the outpatient setting. Repeat labs improving and recommend repeat labs and a prescription was provided. Currently no reports of chest pain, shortness of breath, or palpitations. Patient is afebrile. No reports of nausea or vomiting and patient is tolerating diet. Patient will be discharged home today. Guarded prognosis. On exam vital signs are stable. Cardio S1, S2 are muffled. Respiratory system shows diminished breath sounds at the bases with no wheezing or rhonchi noted. Abdomen is soft and nontender. Nervous system shows no focal deficits. Please refer to medication reconciliation sheet for a list of medications. The impression and plan of care has been dictated by Mary Oviedo, Nurse Practitioner as directed. Dr. Dylan MD I have performed a history and examination and MDM of this patient, discussed the same with the dictator, and agree with the dictator's assessment and plan as written ,documented as a scribe. Based on total visit time, I have performed more than 50% of the visit. Plan - Discharge Summary Discharge Rx Participant: No New Discharge Prescriptions: New Hydrocortisone [Cortef] 10 mg PO BID #30 tab Sodium Bicarbonate Tab 650 mg PO BID 30 Days #60 tab Midodrine [ProAmatine] 5 mg PO AC-TID 30 Days #90 tab Pantoprazole [Protonix] 40 mg PO AC-BRKFST #30 tab Acetaminophen Tab [Tylenol] 650 mg PO Q6HR PRN tab PRN Reason: Mild Pain Or Fever > 100.5 Continue Escitalopram [Lexapro] 20 mg PO DAILY Amiodarone [Cordarone] 200 mg PO DAILY sitaGLIPtin PHOSPHATE [Januvia] 100 mg PO DAILY Apixaban [Eliquis] 5 mg PO BID Cholecalciferol [Vitamin D3 (125 Mcg = 5000 Iu)] 125 mcg PO DAILY metFORMIN HCL 500 mg PO BID Ascorbic Acid [Vitamin C] 1,000 mg PO DAILY QUEtiapine [SEROquel] 50 mg PO HS Zinc 50 mg PO DAILY Discontinued Furosemide [Lasix] 40 mg PO DAILY Spironolactone [Aldactone] 50 mg PO DAILY Discharge Medication List Amiodarone [Cordarone] 200 mg PO DAILY 11/02/21 [History] Apixaban [Eliquis] 5 mg PO BID 11/02/21 [History] Escitalopram [Lexapro] 20 mg PO DAILY 11/02/21 [History] Ascorbic Acid [Vitamin C] 1,000 mg PO DAILY 03/02/22 [History] Cholecalciferol [Vitamin D3 (125 Mcg = 5000 Iu)] 125 mcg PO DAILY 03/02/22 [History] QUEtiapine [SEROquel] 50 mg PO HS 03/02/22 [History] Zinc 50 mg PO DAILY 03/02/22 [History] metFORMIN HCL 500 mg PO BID 03/02/22 [History] sitaGLIPtin PHOSPHATE [Januvia] 100 mg PO DAILY 03/02/22 [History] Acetaminophen Tab [Tylenol] 650 mg PO Q6HR PRN tab 03/08/22 [Rx] Hydrocortisone [Cortef] 10 mg PO BID #30 tab 03/08/22 [Rx] Midodrine [ProAmatine] 5 mg PO AC-TID 30 Days #90 tab 03/08/22 [Rx] Pantoprazole [Protonix] 40 mg PO AC-BRKFST #30 tab 03/08/22 [Rx] Sodium Bicarbonate Tab 650 mg PO BID 30 Days #60 tab 03/08/22 [Rx] Follow up Appointment(s)/Referral(s): Cammie Robb MD [STAFF PHYSICIAN] - 03/25/22 2:40 pm Mina Gil MD [REFERRING] - 1 Week (You need a referral from your primary care doctors office once you get that call office to set up an appointment.) Haily Bui MD [STAFF PHYSICIAN] - 03/24/22 4:45 pm [facility], [NON-STAFF] - 1 Week Randy Saleh DO [Primary Care Provider] - 1-2 days (The office will call you with an appointment time and date.) Ambulatory/Diagnostic Orders: Complete Blood Count w/diff [LAB.AMB] Time Frame: 3 Days, Location: [facility] Patient Instructions/Handouts: Midodrine (By mouth), Pantoprazole (By mouth), Hydrocortisone (By mouth), Sodium Bicarbonate (By mouth), Acute Kidney Injury (DC) Activity/Diet/Wound Care/Special Instructions: activity limited until follow up follow up with pcp on discharge follow up with GI outpatient follow up with nephrology in one week follow up with endocrine in one week continue taking medications as prescribed repeat labs in 2-3 days continue cortef taper of 10mg BID for 4-5 days and then 5mg BID for 4-5 days and need endocrine follow up by then monitor blood pressures daily and keep a diary for pcp and endocrine follow up Discharge Disposition: HOME WITH HOME HEALTH SERVICES
== END 2022-03-08 14:43 | disposition home health service (06) | DRG 683 ==
LOC: EC 14:46 → 5NMEDONC 22:47
PROVIDERS: ADMIT Internal Medicine Geriatric Medicine; ATTEND Internal Medicine Geriatric Medicine
DX: N17.9 Acute kidney failure, unspecified (principal); E87.2 Acidosis; F33.9 Major depressive disorder, recurrent, unspecified; I13.0 Hypertensive heart and chronic kidney disease with heart failure and stage 1 through stage 4 chronic kidney disease, or unspecified chronic kidney disease; I47.1 Supraventricular tachycardia; I48.19 Other persistent atrial fibrillation; I50.32 Chronic diastolic (congestive) heart failure; J98.11 Atelectasis; N39.0 Urinary tract infection, site not specified; J44.9 Chronic obstructive pulmonary disease, unspecified; K52.9 Noninfective gastroenteritis and colitis, unspecified; K57.30 Diverticulosis of large intestine without perforation or abscess without bleeding; N18.30 Chronic kidney disease, stage 3 unspecified; I25.10 Atherosclerotic heart disease of native coronary artery without angina pectoris; D63.1 Anemia in chronic kidney disease; E11.22 Type 2 diabetes mellitus with diabetic chronic kidney disease; E11.51 Type 2 diabetes mellitus with diabetic peripheral angiopathy without gangrene; I65.29 Occlusion and stenosis of unspecified carotid artery; D50.9 Iron deficiency anemia, unspecified; E78.5 Hyperlipidemia, unspecified; E83.42 Hypomagnesemia; E86.0 Dehydration; I95.9 Hypotension, unspecified; E86.1 Hypovolemia; G89.29 Other chronic pain; I49.3 Ventricular premature depolarization; I25.2 Old myocardial infarction; Z79.01 Long term (current) use of anticoagulants; Z79.84 Long term (current) use of oral hypoglycemic drugs; Z79.899 Other long term (current) drug therapy; Z80.6 Family history of leukemia; Z82.3 Family history of stroke; Z82.49 Family history of ischemic heart disease and other diseases of the circulatory system; Z82.5 Family history of asthma and other chronic lower respiratory diseases; Z86.16 Personal history of COVID-19; Z86.73 Personal history of transient ischemic attack (TIA), and cerebral infarction without residual deficits; Z87.891 Personal history of nicotine dependence; Z95.1 Presence of aortocoronary bypass graft; Z95.5 Presence of coronary angioplasty implant and graft; Z86.010 Personal history of colon polyps; Z87.19 Personal history of other diseases of the digestive system; Z88.5 Allergy status to narcotic agent
CPT/HCPCS: 36415; 71046; 74176; 80048; 80053; 81001; 82150; 82533; 82728; 83540; 83550; 83605; 83690; 83735; 83880; 84100; 84484; 85025; 85027; 85610; 85730; 87040; 96361; 96365; 96366; 96375; 99285

== ENCOUNTER 2022-03-12 11:44 | Inpatient (IN) | payer MEDICARE, OTHER ==
[2022-03-12] MEDS ORDERED: DILTIAZEM DRIP BOLUS FROM BAG 1 MG SOLN IV ONE (11:53)
--- NOTE | 2022-03-12 11:57 | ED ---
General Adult HPI - General Chief complaint: Shortness of Breath Stated complaint: Afib Time Seen by Provider: 03/12/22 11:49 Source: patient, EMS, RN notes reviewed Mode of arrival: EMS Limitations: no limitations - History of Present Illness Initial comments: Patient is a pleasant 71-year-old male presenting to the emergency department with concerns with shortness of breath. Onset was past day or so. No cough. Patient is been fatigued. No chest pain or palpitations. No leg pain or leg swelling. Patient does have discoloration of his legs and he states this is been there for several weeks. Patient is on eliquis 5 mg twice a day. - Related Data Home Medications Medication Instructions Recorded Confirmed Amiodarone [Cordarone] 200 mg PO DAILY 11/02/21 03/12/22 Apixaban [Eliquis] 5 mg PO BID 11/02/21 03/12/22 Escitalopram [Lexapro] 20 mg PO DAILY 11/02/21 03/12/22 Ascorbic Acid [Vitamin C] 1,000 mg PO DAILY 03/02/22 03/12/22 Cholecalciferol [Vitamin D3 (125 125 mcg PO DAILY 03/02/22 03/12/22 Mcg = 5000 Iu)] QUEtiapine [SEROquel] 50 mg PO HS 03/02/22 03/12/22 Zinc 50 mg PO DAILY 03/02/22 03/12/22 sitaGLIPtin PHOSPHATE [Januvia] 100 mg PO DAILY 03/02/22 03/12/22 Hydrocortisone [Cortef] See Taper PO BID 03/12/22 03/12/22 Previous Rx's Medication Instructions Recorded Acetaminophen Tab [Tylenol] 650 mg PO Q6HR PRN tab 03/08/22 Midodrine [ProAmatine] 5 mg PO AC-TID 30 Days #90 tab 03/08/22 Pantoprazole [Protonix] 40 mg PO AC-BRKFST #30 tab 03/08/22 Sodium Bicarbonate Tab 650 mg PO BID 30 Days #60 tab 03/08/22 Allergies Allergy/AdvReac Type Severity Reaction Status Date / Time codeine Allergy Unknown Verified 03/12/22 12:45 Childhood morphine Allergy Unknown Verified 03/12/22 12:45 Childhood Review of Systems ROS Statement: Those systems with pertinent positive or pertinent negative responses have been documented in the HPI. ROS Other: All systems not noted in ROS Statement are negative. Constitutional: Denies: fever Eyes: Denies: eye pain ENT: Denies: ear pain Respiratory: Reports: as per HPI, dyspnea Cardiovascular: Denies: chest pain, palpitations Endocrine: Reports: fatigue Gastrointestinal: Denies: abdominal pain Genitourinary: Denies: dysuria Musculoskeletal: Denies: back pain Skin: Denies: rash Neurological: Denies: weakness Past Medical History Past Medical History: Atrial Fibrillation, COPD, CVA/TIA, Diabetes Mellitus, GERD/Reflux, Hyperlipidemia, Hypertension, Myocardial Infarction ([place]), Renal Disease Additional Past Medical History / Comment(s): COPD, CVA 1997, carotid artery disease, diabetes mellitus, chronic back pain, tenosynovitis involving the wrists and hands bilaterally, chronic renal failure, mild aortic stenosis with a peak gradient across the aortic valve of 70 mmHg; three heart attacks, last in 2001 Last Myocardial Infarction Date:: 2001 History of Any Multi-Drug Resistant Organisms: None Reported Past Surgical History: Coronary Bypass/CABG, Heart Catheterization With Stent, Hernia Repair Additional Past Surgical History / Comment(s): March 1998 Cabg TRIPLE vessel by Dr. Ge. [facility] with 3 stents. 4th stent 2016 at [place], COLONOSCOPY, pneumothorax Past Anesthesia/Blood Transfusion Reactions: No Reported Reaction Date of Last Stent Placement:: March 1998, 2015 Past Psychological History: No Psychological Hx Reported Smoking Status: Former smoker Past Alcohol Use History: None Reported Past Drug Use History: None Reported - Past Family History Father Family Medical History: Cancer Additional Family Medical History / Comment(s): Leukemia Father of leukemia at age 32yrs Mother Family Medical History: COPD Additional Family Medical History / Comment(s): Mother was 76 when she . She had mental illness. Sister(s) Family Medical History: Coronary Artery Disease (CAD), CVA/TIA Brother(s) Family Medical History: Coronary Artery Disease (CAD) General Exam Limitations: no limitations General appearance: alert, in no apparent distress Head exam: Present: normocephalic Eye exam: Present: normal appearance Neck exam: Present: normal inspection Respiratory exam: Present: normal lung sounds bilaterally Cardiovascular Exam: Present: tachycardia, irregular rhythm Expanded Peripheral pulses: 1+: Posterior Tibialis (R), Posterior Tibialis (L), Dorsalis Pedis (R), Dorsalis Pedis (L) GI/Abdominal exam: Present: soft. Absent: tenderness Extremities exam: Present: other (Bilateral feet with mild coolness and purplish discoloration. Cap refill 2-3 seconds.). Absent: pedal edema, calf tenderness Neurological exam: Present: alert Psychiatric exam: Present: normal affect, normal mood Skin exam: Present: cyanosis (Bilateral feet) Course Vital Signs 03/12/22 11:45 Temperature 97.8 F Pulse Rate 124 H Respiratory 18 Rate Blood Pressure 104/66 O2 Sat by Pulse 97 Oximetry EKG Findings - EKG Comments: EKG Findings:: H a flutter with rate 125. QRS 127. QT 224. QTC 290. Right axis. Right bundle branch block. Nonspecific ST-T. Medical Decision Making - Medical Decision Making Patient reevaluated. Heart rate has slightly improved from upper 120s to lower 120s. A lamar and family updated on results and plan. Case discussed with Dr. Richardson, covering Dr. Blandon, who admits for Dr. Saleh. - Lab Data Result diagrams: 03/12/22 11:57 03/12/22 11:57 Lab Results 03/12/22 03/12/22 03/12/22 Range/Units 11:57 11:57 11:57 WBC 7.9 (3.8-10.6) k/uL RBC 3.13 L (4.30-5.90) m/uL Hgb 9.9 L (13.0-17.5) gm/dL Hct 30.5 L (39.0-53.0) % MCV 97.5 (80.0-100.0) fL MCH 31.5 (25.0-35.0) pg MCHC 32.3 (31.0-37.0) g/dL RDW 16.8 H (11.5-15.5) % Plt Count 238 (150-450) k/uL MPV 7.7 Neutrophils % 81 % Lymphocytes % 6 % Monocytes % 6 % Eosinophils % 5 % Basophils % 1 % Neutrophils # 6.4 (1.3-7.7) k/uL Lymphocytes # 0.5 L (1.0-4.8) k/uL Monocytes # 0.4 (0-1.0) k/uL Eosinophils # 0.4 (0-0.7) k/uL Basophils # 0.1 (0-0.2) k/uL Hypochromasia Moderate Poikilocytosis Slight Anisocytosis Slight Macrocytosis Slight PT 13.3 H (9.0-12.0) sec INR 1.3 H (<1.2) APTT 28.6 (22.0-30.0) sec Sodium 135 L (137-145) mmol/L Potassium 4.1 (3.5-5.1) mmol/L Chloride 104 (98-107) mmol/L Carbon Dioxide 19 L (22-30) mmol/L Anion Gap 12 mmol/L BUN 33 H (9-20) mg/dL Creatinine 1.44 H (0.66-1.25) mg/dL Est GFR (CKD-EPI)AfAm 57 (>60 ml/min/1.73 sqM) Est GFR (CKD-EPI)NonAf 49 (>60 ml/min/1.73 sqM) Glucose 163 H (74-99) mg/dL Calcium 8.4 (8.4-10.2) mg/dL Magnesium 1.5 L (1.6-2.3) mg/dL Total Bilirubin 1.4 H (0.2-1.3) mg/dL AST 29 (17-59) U/L ALT 12 (4-49) U/L Alkaline Phosphatase 100 (38-126) U/L Troponin I (0.000-0.034) ng/mL Total Protein 5.5 L (6.3-8.2) g/dL Albumin 2.9 L (3.5-5.0) g/dL 03/12/22 Range/Units 11:57 WBC (3.8-10.6) k/uL RBC (4.30-5.90) m/uL Hgb (13.0-17.5) gm/dL Hct (39.0-53.0) % MCV (80.0-100.0) fL MCH (25.0-35.0) pg MCHC (31.0-37.0) g/dL RDW (11.5-15.5) % Plt Count (150-450) k/uL MPV Neutrophils % % Lymphocytes % % Monocytes % % Eosinophils % % Basophils % % Neutrophils # (1.3-7.7) k/uL Lymphocytes # (1.0-4.8) k/uL Monocytes # (0-1.0) k/uL Eosinophils # (0-0.7) k/uL Basophils # (0-0.2) k/uL Hypochromasia Poikilocytosis Anisocytosis Macrocytosis PT (9.0-12.0) sec INR (<1.2) APTT (22.0-30.0) sec Sodium (137-145) mmol/L Potassium (3.5-5.1) mmol/L Chloride (98-107) mmol/L Carbon Dioxide (22-30) mmol/L Anion Gap mmol/L BUN (9-20) mg/dL Creatinine (0.66-1.25) mg/dL Est GFR (CKD-EPI)AfAm (>60 ml/min/1.73 sqM) Est GFR (CKD-EPI)NonAf (>60 ml/min/1.73 sqM) Glucose (74-99) mg/dL Calcium (8.4-10.2) mg/dL Magnesium (1.6-2.3) mg/dL Total Bilirubin (0.2-1.3) mg/dL AST (17-59) U/L ALT (4-49) U/L Alkaline Phosphatase (38-126) U/L Troponin I 0.012 (0.000-0.034) ng/mL Total Protein (6.3-8.2) g/dL Albumin (3.5-5.0) g/dL - Radiology Data Radiology results: image reviewed (Chest x-ray shows interstitial edema, CHF.) Critical Care Time Critical Care Time: Yes Total Critical Care Time: 32 Disposition Clinical Impression: Congestive heart failure, Atrial fibrillation with RVR Disposition: ADMITTED IP TO THIS HOSP Is patient prescribed a controlled substance at d/c from ED?: No Referrals: Randy Saleh DO [Primary Care Provider] - 1-2 days Time of Disposition: 12:57
[2022-03-12 12:20] LABS: Albumin 2.9 g/dL (3.5-5.0); Calcium 8.4 mg/dL (8.4-10.2); Magnesium 1.5 mg/dL (1.6-2.3); Potassium 4.1 mmol/L (3.5-5.1); Total Bilirubin 1.4 mg/dL (0.2-1.3); Total Protein 5.5 g/dL (6.3-8.2)
[2022-03-12 12:27] LABS: Anisocytosis Slight; Basophils # (A) 0.1 k/uL (0-0.2); Basophils % (A) 1 %; Eosinophils # (A) 0.4 k/uL (0-0.7); Eosinophils % (A) 5 %; HCT 30.5 % (39.0-53.0); HGB 9.9 gm/dL (13.0-17.5); Hypochromasia Moderate; Lymphocytes # (A) 0.5 k/uL (1.0-4.8); Lymphocytes % (A) 6 %; MCH 31.5 pg (25.0-35.0); MCHC 32.3 g/dL (31.0-37.0); MCV 97.5 fL (80.0-100.0); Macrocytosis Slight; Mean Platelet Volume 7.7; Monocytes # (A) 0.4 k/uL (0-1.0); Monocytes % (A) 6 %; Neutrophils # (A) 6.4 k/uL (1.3-7.7); Neutrophils % (A) 81 %; Platelet Count 238 k/uL (150-450); Poikilocytosis Slight; RBC 3.13 m/uL (4.30-5.90); RDW 16.8 % (11.5-15.5); WBC 7.9 k/uL (3.8-10.6)
[2022-03-12 12:29] LABS: INR 1.3 (<1.2); Prothrombin Time 13.3 sec (9.0-12.0)
[2022-03-12 12:30] LABS: Partial Thromboplastin Time 28.6 sec (22.0-30.0)
[2022-03-12] MEDS ORDERED: DILTIAZEM 125 MG in SODIUM CHLORIDE 0.9% 100 ML IV SCH (12:30)
--- NOTE | 2022-03-12 12:34 | XR ---
EXAMINATION TYPE: XR chest 1V portable DATE OF EXAM: 03/12/2022 COMPARISON: Chest x-ray 03/02/2022 HISTORY: Dysrhythmia TECHNIQUE: Single frontal view of the chest is obtained. FINDINGS: The heart is enlarged. Interstitium is increased, there is been development of bilateral a irspace disease. Lateralization of the left hemidiaphragm is stable. No evident pneumothorax. Patient is post median sternotomy. IMPRESSION: Correlate for congestive heart failure, pulmonary venous hypertension and interstitial e gerry, pneumonia not excluded
[2022-03-12] MEDS ORDERED: NITROGLYCERIN OINT 1 INCH/GM PACKET TOPICAL SCH (13:00)
[2022-03-12] MEDS: FUROSEMIDE 10 MG/ML 4 ML VIAL IV SCH ×2 (13:31→20:38)
[2022-03-12] MEDS: MIDODRINE 5 MG TAB PO SCH ×2 (13:31→16:56)
--- NOTE | 2022-03-12 15:21 | P.GSCN ---
History of Present Illness Consult date: 03/12/22 History of present illness: Jovanni is a 71-year-old male who presented to the emergency room with shortness of breath. Family in the room with him does the majority of the conversation. They state that the patient himself has been having issues with his breathing and typically when he is taking all of his medications he does well with this. At his last hospitalization he was told to discontinue the Lasix and spironolactone. She believes this is why he has increasing fluid on his lungs and difficulty breathing. We are asked to see the patient regarding discoloration of his lower extremities is benign for many weeks. She says that this happens typically over time as he lays his legs over the side of the bed. She says that if there elevated it does not cause issue. 1 pointedly asked, the patient denies any pain in his lower extremities. He states he feels relatively well without any significant issue and that his breathing feels somewhat better since being in the hospital Past Medical History Past Medical History: Atrial Fibrillation, COPD, CVA/TIA, Diabetes Mellitus, GERD/Reflux, Hyperlipidemia, Hypertension, Myocardial Infarction ([place]), Renal Disease Additional Past Medical History / Comment(s): COPD, CVA 1997, carotid artery disease, diabetes mellitus, chronic back pain, tenosynovitis involving the wrists and hands bilaterally, chronic renal failure, mild aortic stenosis with a peak gradient across the aortic valve of 70 mmHg; three heart attacks, last in 2001 Last Myocardial Infarction Date:: 2001 History of Any Multi-Drug Resistant Organisms: None Reported Past Surgical History: Coronary Bypass/CABG, Heart Catheterization With Stent, Hernia Repair Additional Past Surgical History / Comment(s): March 1998 Cabg TRIPLE vessel by Dr. Ge. [facility] with 3 stents. 4th stent 2016 at [place], COLONOSCOPY, pneumothorax Past Anesthesia/Blood Transfusion Reactions: No Reported Reaction Date of Last Stent Placement:: March 1998, 2015 Past Psychological History: No Psychological Hx Reported Smoking Status: Former smoker Past Alcohol Use History: None Reported Past Drug Use History: None Reported - Past Family History Father Family Medical History: Cancer Additional Family Medical History / Comment(s): Leukemia Father of leukemia at age 32yrs Mother Family Medical History: COPD Additional Family Medical History / Comment(s): Mother was 76 when she . She had mental illness. Sister(s) Family Medical History: Coronary Artery Disease (CAD), CVA/TIA Brother(s) Family Medical History: Coronary Artery Disease (CAD) Medications and Allergies Home Medications Medication Instructions Recorded Confirmed Type Amiodarone [Cordarone] 200 mg PO DAILY 11/02/21 03/12/22 History Apixaban [Eliquis] 5 mg PO BID 11/02/21 03/12/22 History Escitalopram [Lexapro] 20 mg PO DAILY 11/02/21 03/12/22 History Ascorbic Acid [Vitamin C] 1,000 mg PO DAILY 03/02/22 03/12/22 History Cholecalciferol [Vitamin D3 (125 125 mcg PO DAILY 03/02/22 03/12/22 History Mcg = 5000 Iu)] QUEtiapine [SEROquel] 50 mg PO HS 03/02/22 03/12/22 History Zinc 50 mg PO DAILY 03/02/22 03/12/22 History sitaGLIPtin PHOSPHATE [Januvia] 100 mg PO DAILY 03/02/22 03/12/22 History Acetaminophen Tab [Tylenol] 650 mg PO Q6HR PRN tab 03/08/22 03/12/22 Rx Midodrine [ProAmatine] 5 mg PO AC-TID 30 Days #90 tab 03/08/22 03/12/22 Rx Pantoprazole [Protonix] 40 mg PO AC-BRKFST #30 tab 03/08/22 03/12/22 Rx Sodium Bicarbonate Tab 650 mg PO BID 30 Days #60 tab 03/08/22 03/12/22 Rx Hydrocortisone [Cortef] See Taper PO BID 03/12/22 03/12/22 History Allergies Allergy/AdvReac Type Severity Reaction Status Date / Time codeine Allergy Unknown Verified 03/12/22 12:45 Childhood morphine Allergy Unknown Verified 03/12/22 12:45 Childhood Surgical - Exam Vital Signs Temp Pulse Resp BP Pulse Ox 97.8 F 124 H 18 104/66 97 03/12/22 11:45 03/12/22 11:45 03/12/22 11:45 03/12/22 11:45 03/12/22 11:45 Gen. is a pleasant cooperative male in mild respiratory distress. HEENT is normocephalic, atraumatic, extraocular motion intact. Heart is irregular. dist ant breath sounds, shallow. Abdomen soft, obese, nontender. Extremity show no clubbing or cyanosis. 2+ bilateral lower extremity edema. Palpable femoral pulses. Nonpalpable pedal pulses. Slightly delayed capillary refill. Feet are warm and equal bilaterally. Motor sensory intact. No wounds Results - Labs 03/12/22 11:57 03/12/22 11:57 Abnormal Lab Results - Last 24 Hours (Table) 03/12/22 03/12/22 03/12/22 Range/Units 11:57 11:57 11:57 RBC 3.13 L (4.30-5.90) m/uL Hgb 9.9 L (13.0-17.5) gm/dL Hct 30.5 L (39.0-53.0) % RDW 16.8 H (11.5-15.5) % Lymphocytes # 0.5 L (1.0-4.8) k/uL PT 13.3 H (9.0-12.0) sec INR 1.3 H (<1.2) Sodium 135 L (137-145) mmol/L Carbon Dioxide 19 L (22-30) mmol/L BUN 33 H (9-20) mg/dL Creatinine 1.44 H (0.66-1.25) mg/dL Glucose 163 H (74-99) mg/dL Magnesium 1.5 L (1.6-2.3) mg/dL Total Bilirubin 1.4 H (0.2-1.3) mg/dL Total Protein 5.5 L (6.3-8.2) g/dL Albumin 2.9 L (3.5-5.0) g/dL Diabetes panel 03/12/22 Range/Units 11:57 Sodium 135 L (137-145) mmol/L Potassium 4.1 (3.5-5.1) mmol/L Chloride 104 (98-107) mmol/L Carbon Dioxide 19 L (22-30) mmol/L BUN 33 H (9-20) mg/dL Creatinine 1.44 H (0.66-1.25) mg/dL Glucose 163 H (74-99) mg/dL Calcium 8.4 (8.4-10.2) mg/dL AST 29 (17-59) U/L ALT 12 (4-49) U/L Alkaline Phosphatase 100 (38-126) U/L Total Protein 5.5 L (6.3-8.2) g/dL Albumin 2.9 L (3.5-5.0) g/dL Calcium panel 03/12/22 Range/Units 11:57 Calcium 8.4 (8.4-10.2) mg/dL Albumin 2.9 L (3.5-5.0) g/dL Pituitary panel 03/12/22 Range/Units 11:57 Sodium 135 L (137-145) mmol/L Potassium 4.1 (3.5-5.1) mmol/L Chloride 104 (98-107) mmol/L Carbon Dioxide 19 L (22-30) mmol/L BUN 33 H (9-20) mg/dL Creatinine 1.44 H (0.66-1.25) mg/dL Glucose 163 H (74-99) mg/dL Calcium 8.4 (8.4-10.2) mg/dL Adrenal panel 03/12/22 Range/Units 11:57 Sodium 135 L (137-145) mmol/L Potassium 4.1 (3.5-5.1) mmol/L Chloride 104 (98-107) mmol/L Carbon Dioxide 19 L (22-30) mmol/L BUN 33 H (9-20) mg/dL Creatinine 1.44 H (0.66-1.25) mg/dL Glucose 163 H (74-99) mg/dL Calcium 8.4 (8.4-10.2) mg/dL Total Bilirubin 1.4 H (0.2-1.3) mg/dL AST 29 (17-59) U/L ALT 12 (4-49) U/L Alkaline Phosphatase 100 (38-126) U/L Total Protein 5.5 L (6.3-8.2) g/dL Albumin 2.9 L (3.5-5.0) g/dL Assessment and Plan Assessment: Lower extremity swelling Likely secondary to a cardiac/CHF Likely peripheral arterial disease, asymptomatic Plan: At this time, had a long discussion with the patient and his family member regarding his lower extremity swelling. He likely has some degree of peripheral vascular disease and atherosclerotic disease of his lower extremities. Therefore will be judicious with his compression. Single-layer Tubigrip this time. Continue elevation. The patient currently has no symptoms from his lower extremity issue therefore will be very conservative treatment. No further workup or evaluation necessary at this time. If there is further change in his clinical status or he develops further wounds, would need to appropriate evaluate his arterial system. He should offload his lower extremities and avoid pressure spots
[2022-03-12] MEDS: AMIODARONE 200 MG TAB PO SCH ×2 (15:49→23:16)
--- NOTE | 2022-03-12 16:17 | CONS ---
CONSULTATION CHIEF COMPLAINT: Atrial fibrillation with rapid ventricular rate. This is a 71-year-old gentleman who was recently discharged from the hospital. He has a history of atrial fibrillation, hypertension, dyslipidemia, diabetes, coronavirus infection. He presented to hospital with shortness of breath, leg edema and atrial fibrillation with poorly controlled ventricular rate. Patient was in the hospital just last week when he came in with acute kidney injury, and his diuretics were stopped and he was sent home. At the time of my evaluation patient appears comfortable at rest, but his heart rate is elevated. He denies any chest pain or difficulty in breathing. He has mild bilateral leg edema. He is dropping his blood pressures with intravenous Cardizem. We will resume it at a lower dose. I will obtain a 2D echo to assess his LV function. BNP is elevated, suggestive of acute exacerbation of chronic congestive heart failure, probably diastolic. His coronavirus test is negative. PAST MEDICAL HISTORY: Significant for persistent atrial fibrillation, [id number] diabetes, hypotension and hypoadrenalism. MEDICATIONS: Medications at home included Januvia, , Protonix, midodrine, Cortef, Eliquis, Cordarone and vitamin C. ALLERGIES: CODEINE AND MORPHINE. FAMILY HISTORY: Negative for premature coronary artery disease. SOCIAL HISTORY: Negative for current smoking, EtOH abuse or drug abuse. REVIEW OF SYSTEMS: HEENT is unremarkable. CARDIAC: As described above. RESPIRATORY: As described above. GI: Negative. GENITOURINARY: Negative. ALLERGY/IMMUNOLOGY: Negative. SKIN: Negative. MUSCULOSKELETAL: Significant for arthritis. PSYCHOSOCIAL: Negative. DERMATOLOGY: Negative. CONSTITUTIONAL: Negative. ONCOLOGICAL: Negative. TOWERMAN: Negative. Rest of the system review is not relevant. PHYSICAL EXAMINATION: Afebrile. Heart rate is 120 beats per minute. Blood pressure is 90/60. Respiratory rate is 18. Chest exam reveals diminished air entry at the bases. Heart exam reveals first and second heart sounds, irregular rhythm and ejection systolic murmur. Abdomen is soft. Examination of extremities reveals bilateral pitting edema. LABS: Labs show a hemoglobin of 9.9, but the platelet count is 238, potassium is 4.1, BUN is 33, creatinine is 1.4. BNP is elevated. AST and ALT are within normal limits. ASSESSMENT: 1. Acute exacerbation of chronic congestive heart failure, probably diastolic. 2. Persistent atrial fibrillation with poorly controlled ventricular rate. PLAN: I will start the patient back on amiodarone, intravenous Cardizem, resume the Eliquis. MMODL / IJN: [id number] /
[2022-03-12 16:28] LABS: Glucose,Whole Blood 119 mg/dL (70-110)
[2022-03-12] MEDS ORDERED: MIDODRINE 5 MG TAB PO SCH (17:30)
[2022-03-12] MEDS: METOPROLOL TARTRATE 25 MG TAB PO SCH (19:12)
[2022-03-12] MEDS: APIXABAN 5 MG TAB PO SCH (20:37)
[2022-03-12] MEDS: SODIUM BICARBONATE TAB 650 MG TAB PO SCH (20:38)
[2022-03-12] MEDS ORDERED: AMIODARONE 200 MG TAB PO SCH (21:00)
[2022-03-12 21:57] LABS: Glucose,Whole Blood 197 mg/dL (70-110)
--- NOTE | 2022-03-13 01:23 | P.HPIM ---
History of Present Illness H&P Date: 03/12/22 Chief Complaint: Shortness of breath Patient is a 71-year-old male with a known history of atrial fibrillation on anticoagulation with, COPD, history of CVA/TIA, hypertension, hyperlipidemia, history of SC and chronic back pain, coronary artery disease with history of CABG and also stent placement and previous history of smoking presents to ER due to complaints of worsening shortness of breath and leg swelling. Patient was recently just discharged from the hospital on 03/08/2022. He was admitted to the hospital due to colitis colitis and acute kidney injury and hypotension. Patient was patient was on diuretics and spironolactone which was discontinued due to hypotension and acute kidney injury. Patient was started on midodrine and also hydrocortisone tapering course. Patient was discharged home with improvement in blood pressure and kidney function. Patient presented to ER due to worsening leg swelling. He was also found to have atrial fibrillation with rapid regular rate on admission. Patient does take anticoagulation with Eliquis. Chest x-ray showed correlate for congestive heart failure, pulmonary venous hypertension and interstitial edema. Pneumonia not excluded. EKG showed atrial fibrillation with rapid regular response. Laboratory data showed WBC 7.9 hemoglobin 9.9 platelets 238 INR 1.3 sodium 135 potassium 4.1 chloride 104 bicarb is 19 BUN 33 and creatinine 1.44 blood sugar is 163. Magnesium 1.5 and total bilirubin 1.4 proBNP 10 800, albumin 2.9, troponin x3 negative. Review of Systems Complete review of systems could not be obtained with the patient except as per HPI. Past Medical History Past Medical History: Atrial Fibrillation, Coronary Artery Disease (CAD), COPD, CVA/TIA, Diabetes Mellitus, GERD/Reflux, Hyperlipidemia, Hypertension, M yocardial Infarction (SC), Renal Disease Additional Past Medical History / Comment(s): COPD, CVA multiple one in 1997, carotid artery disease, diabetes mellitus, chronic back pain, tenosynovitis involving the wrists and hands bilaterally, chronic renal failure, mild aortic stenosis with a peak gradient across the aortic valve of 70 mmHg; three heart attacks, last in 2001, colitis, recent discharge (4 days prior to admission) for "colitis attack and low iron" Last Myocardial Infarction Date:: 2001 History of Any Multi-Drug Resistant Organisms: None Reported Past Surgical History: Coronary Bypass/CABG, Heart Catheterization With Stent, Hernia Repair Additional Past Surgical History / Comment(s): March 1998 Cabg TRIPLE vessel by Dr. Ge. Cath with 3 stents. 4th stent 2016 at [place], COLONOSCOPY last one in August, pneumothorax Past Anesthesia/Blood Transfusion Reactions: No Reported Reaction Date of Last Stent Placement:: March 19982015 Past Psychological History: No Psychological Hx Reported Additional Psychological History / Comment(s): Pt lives with his in their home. He is wheelchair bound. Daughter goes to house 4-5x a day to help. Smoking Status: Former smoker Past Alcohol Use History: None Reported Past Drug Use History: None Reported - Past Family History Father Family Medical History: Cancer Additional Family Medical History / Comment(s): Leukemia Father of leukemia at age 32yrs Mother Family Medical History: COPD Additional Family Medical History / Comment(s): Mother was 76 when she . She had mental illness. Sister(s) Family Medical History: Coronary Artery Disease (CAD), CVA/TIA Brother(s) Family Medical History: Coronary Artery Disease (CAD) Medications and Allergies Home Medications Medication Instructions Recorded Confirmed Type Amiodarone [Cordarone] 200 mg PO DAILY 11/02/21 03/12/22 History Apixaban [Eliquis] 5 mg PO BID 11/02/21 03/12/22 History Escitalopram [Lexapro] 20 mg PO DAILY 11/02/21 03/12/22 History Ascorbic Acid [Vitamin C] 1,000 mg PO DAILY 03/02/22 03/12/22 History Cholecalciferol [Vitamin D3 (125 125 mcg PO DAILY 03/02/22 03/12/22 History Mcg = 5000 Iu)] QUEtiapine [SEROquel] 50 mg PO HS 03/02/22 03/12/22 History Zinc 50 mg PO DAILY 03/02/22 03/12/22 History sitaGLIPtin PHOSPHATE [Januvia] 100 mg PO DAILY 03/02/22 03/12/22 History Acetaminophen Tab [Tylenol] 650 mg PO Q6HR PRN tab 03/08/22 03/12/22 Rx Midodrine [ProAmatine] 5 mg PO AC-TID 30 Days #90 tab 03/08/22 03/12/22 Rx Pantoprazole [Protonix] 40 mg PO AC-BRKFST #30 tab 03/08/22 03/12/22 Rx Sodium Bicarbonate Tab 650 mg PO BID 30 Days #60 tab 03/08/22 03/12/22 Rx Hydrocortisone [Cortef] See Taper PO BID 03/12/22 03/12/22 History Allergies Allergy/AdvReac Type Severity Reaction Status Date / Time codeine Allergy Unknown Verified 03/12/22 12:45 Childhood morphine Allergy Unknown Verified 03/12/22 12:45 Childhood Physical Exam Vitals: Vital Signs Temp Pulse Pulse Resp BP BP Pulse Ox 03/12/22 15:50 99.3 F 120 H 22 87/52 96 03/12/22 14:15 98.1 F 71 18 102/63 99 03/12/22 13:16 122 H 18 88/47 94 L 03/12/22 12:54 90 18 103/62 94 L 03/12/22 11:45 97.8 F 124 H 18 104/66 97 Intake and Output 03/12/22 03/12/22 03/12/22 06:59 14:59 22:59 Intake Total 22.083 0 Output Total 1200 Balance 22.083 -1200 Intake: Intake, IV Titration 22.083 0 Amount Diltiazem 125 mg In 22.083 0 Sodium Chloride 0.9% 100 ml @ 5 MG/HR 5 mls/hr IV .Q24H [facility] Rx#:[id number] Output: Urine 1200 Other: Weight 85.729 kg 85.729 kg PHYSICAL EXAMINATION: Patient is lying in the bed comfortably, no acute distress, awake alert but lethargic and drowsy... HEENT: Normocephalic. Neck is supple. Pupils reactive. Nostrils clear. Oral cavity is moist. Neck reveals no JVD, carotid bruits, or thyromegaly. CHEST EXAMINATION: Trachea is central. Symmetrical expansion. Bibasilar diminished sounds and left basilar crackles.. CARDIAC: Normal S1, S2 with no gallops. No murmurs ABDOMEN: Soft. Bowel sounds present. Nontender. No organomegaly. No abdominal bruits. Extremities: 2+ pedal edema. No clubbing or cyanosis Neurologically awake, alert, oriented x2-3 with well-coordinated movements. No focal deficits noted Skin: No rash or skin lesions. Psychiatric: Coperative. Nonsuicidal, anxious. Musculoskeletal: No joint swelling or deformity. Normal range of motion. Results CBC & Chem 7: 03/13/22 08:44 03/13/22 08:44 Labs: Abnormal Lab Results - Last 24 Hours (Table) 03/12/22 03/12/22 03/12/22 Range/Units 11:57 11:57 11:57 RBC 3.13 L (4.30-5.90) m/uL Hgb 9.9 L (13.0-17.5) gm/dL Hct 30.5 L (39.0-53.0) % RDW 16.8 H (11.5-15.5) % Lymphocytes # 0.5 L (1.0-4.8) k/uL PT 13.3 H (9.0-12.0) sec INR 1.3 H (<1.2) Sodium 135 L (137-145) mmol/L Carbon Dioxide 19 L (22-30) mmol/L BUN 33 H (9-20) mg/dL Creatinine 1.44 H (0.66-1.25) mg/dL Glucose 163 H (74-99) mg/dL Magnesium 1.5 L (1.6-2.3) mg/dL Total Bilirubin 1.4 H (0.2-1.3) mg/dL Total Protein 5.5 L (6.3-8.2) g/dL Albumin 2.9 L (3.5-5.0) g/dL Thrombosis Risk Factor Assmnt - DVT/VTE Prophylaxis DVT/VTE Prophylaxis: Pharmacologic Prophylaxis ordered - Choose All That Apply Any of the Below Risk Factors Present?: Yes Each Factor Represents 1 point: Abnormal pulmonary function (COPD) Other Risk Factors: Yes Each Risk Factor Represents 2 Points: Age 61-74 years Other congenital or acquired thrombophilia - If yes, enter type in comment: No Thrombosis Risk Factor Assessment Total Risk Factor Score: 3 Thrombosis Risk Factor Assessment Level: Moderate Risk Assessment and Plan Assessment: Acute on chronic CHF likely diastolic dysfunction Persistent atrial fibrillation with rapid ventricular rate Hypotension Recent admission with colitis and acute kidney injury History of CVA/TIA Hypertension Hyperlipidemia History of SC neck and COPD not in exacerbation Coronary artery disease history of CABG and stent placement next and prior history of smoking extremity due to prophylaxis patient is already on anticoagulation Plan: Patient will be continued on Cardizem drip. Patient was hypotensive and will be continued on Midodrin and Cortef. Continue with IV diuresis as blood pressure tolerates. Cardiology was consulted. Continue the home medications including anticoagulation with Eliquis.follow up closely. Discussed with his at bedside in detail. Prognosis is guarded. Time with Patient: Greater than 30
[2022-03-13] MEDS: MIDODRINE 5 MG TAB PO SCH ×3 (05:22→16:56)
[2022-03-13] MEDS: FUROSEMIDE 10 MG/ML 4 ML VIAL IV SCH ×2 (05:47→12:13)
[2022-03-13 06:16] LABS: Glucose,Whole Blood 148 mg/dL (70-110)
[2022-03-13] MEDS: PANTOPRAZOLE 40 MG TABLET PO SCH (06:23)
[2022-03-13] MEDS: APIXABAN 5 MG TAB PO SCH ×2 (07:39→21:06)
[2022-03-13] MEDS: METOPROLOL TARTRATE 25 MG TAB PO SCH ×3 (07:39→21:06)
[2022-03-13] MEDS: AMIODARONE 200 MG TAB PO SCH ×3 (07:39→21:06)
[2022-03-13] MEDS: SODIUM BICARBONATE TAB 650 MG TAB PO SCH ×2 (07:39→21:06)
[2022-03-13 09:56] LABS: Anisocytosis Slight; Basophils # (A) 0.1 k/uL (0-0.2); Basophils % (A) 1 %; Eosinophils # (A) 0.6 k/uL (0-0.7); Eosinophils % (A) 7 %; HCT 27.8 % (39.0-53.0); HGB 9.1 gm/dL (13.0-17.5); Hypochromasia Moderate; Lymphocytes # (A) 0.8 k/uL (1.0-4.8); Lymphocytes % (A) 9 %; MCH 31.7 pg (25.0-35.0); MCHC 32.8 g/dL (31.0-37.0); MCV 96.8 fL (80.0-100.0); Macrocytosis Slight; Mean Platelet Volume 7.4; Monocytes # (A) 0.5 k/uL (0-1.0); Monocytes % (A) 6 %; Neutrophils # (A) 6.7 k/uL (1.3-7.7); Neutrophils % (A) 75 %; Platelet Count 317 k/uL (150-450); Poikilocytosis Slight; RBC 2.87 m/uL (4.30-5.90); RDW 16.8 % (11.5-15.5); WBC 8.9 k/uL (3.8-10.6)
[2022-03-13 10:08] LABS: Calcium 8.5 mg/dL (8.4-10.2); Potassium 3.8 mmol/L (3.5-5.1)
[2022-03-13] MEDS: HYDROCORTISONE 10 MG TAB PO SCH ×2 (11:29→21:06)
[2022-03-13 11:40] LABS: Glucose,Whole Blood 111 mg/dL (70-110)
[2022-03-13] MEDS: INSULIN ASPART (NovoLOG) 100 UNIT/ML VIAL SQ SCH ×3 (11:45→20:48)
[2022-03-13] MEDS ORDERED: polyethylene glycoL 3350 17 GM POWD.PACK PO STA (12:45)
[2022-03-13] MEDS: DOCUSATE 100 MG CAP PO SCH (13:27)
[2022-03-13] MEDS: MAGNESIUM SULFATE-D5W PMX 1 GM in DEXTROSE/WATER 1 100ML.BAG IVPB SCH ×2 (13:27→15:12)
--- NOTE | 2022-03-13 14:17 | CA ---
Transthoracic Echo Report Name: Jovanni Dasilva Age: 71 Gender: M : 1950 Exam Date: 03/12/2022 15:05 Exam Location: [place] [facility] Ht (in): Wt (lb): Ordering Physician: Kelly Quiroz Attending/Referring Phys: [employer] Megha Michael RDCS Procedure CPT: Indications: chf, afib Cardiac Hx: Technical Quality: Technically difficult study Contrast 1: Lumason Total Dose (mL): 4 Contrast 2: Total Dose (mL): MEASUREMENTS (Male / Female) Normal Values 2D ECHO LV Diastolic Diameter PLAX 4.8 cm 4.2 - 5.9 / 3.9 - 5.3 cm LV Systolic Diameter PLAX 3.8 cm IVS Diastolic Thickness 1.3 cm 0.6 - 1.0 / 0.6 - 0.9 cm LVPW Diastolic Thickness 1.4 cm 0.6 - 1.0 / 0.6 - 0.9 cm LV Relative Wall Thickness 0.6 RV Internal Dim ED PLAX 3.5 cm LA Volume 39.3 cm??? 18 - 58 / 22 - 52 cm??? M-MODE Aortic Root Diameter MM 3.4 cm LA Systolic Diameter MM 4.4 cm LA Ao Ratio MM 1.3 AV Cusp Separation MM 0.4 cm DOPPLER AV Peak Velocity 257.2 cm/s AV Peak Gradient 26.5 mmHg AV Mean Velocity 189.5 cm/s AV Mean Gradient 16.4 mmHg AV Velocity Time Integral 40.2 cm LVOT Peak Velocity 73.1 cm/s LVOT Peak Gradient 2.1 mmHg TR Peak Velocity 226.1 cm/s TR Peak Gradient 20.5 mmHg Right Ventricular Systolic Press 24.2 mmHg FINDINGS Left Ventricle Moderately increased left ventricular wall thickness, reduced global left ventricular systolic function. Left ventricular ejection fraction is estimated at 40-45 %. Right Ventricle Mild right ventricular dilatation. Right ventricular systolic pressure within normal limits. Right Atrium Normal right atrial size. Left Atrium Normal left atrial size. No evidence for an atrial septal defect. Mitral Valve Mild mitral annular calcification. Mild mitral regurgitation. Aortic Valve Mild aortic stenosis with a peak gradient of27 mmHg and a mean gradient of 16 mmHg. Tricuspid Valve Mild tricuspid regurgitation. Pulmonic Valve Trace pulmonic regurgitation. Pericardium No pericardial effusion. Aorta Normal size aortic root and proximal ascending aorta. CONCLUSIONS Moderate LV systolic dysfunction Mild aortic stenosis Mild mitral and tricuspid regurgitation Previewed by: Dr. Demarcus Bui MD (Electronically Signed) Final Date: 13 March 2022 14:16
--- NOTE | 2022-03-13 14:42 | P.PN ---
Subjective Progress Note Date: 03/13/22 Patient is seen resting comfortably in bed today no signs of acute distress. He remains in A. fib with RVR. Last night his Cardizem drip was discontinued due to hypotension and he was transitioned to Lopressor 25 mg 3 times a day. Heart rate remains uncontrolled Will increase amiodarone to 200 mg 3 times a day. He continues to deny chest pain. He still has exertional shortness of breath and is on supplemental oxygen. Blood pressure remained systolically in the 80s to low 100s. He reports his blood pressure runs low at home systolically in the 100s. Patient's echocardiogram showed a moderately decreased LV function with an ejection fraction of 40-45% mild aortic stenosis mild mitral and tricuspid regurgitation. She was evaluated by Dr. Warner for peripheral artery disease. At this time it is recommended no surgical intervention and medically manage. Objective - Vital Signs Vital signs: Vital Signs Temp 98.0 F 03/13/22 07:37 Pulse 125 H 03/13/22 13:15 Resp 20 03/13/22 11:27 BP 101/63 03/13/22 12:15 Pulse Ox 94 L 03/13/22 12:15 FiO2 Intake & Output 03/12/22 03/13/22 03/13/22 18:59 06:59 18:59 Intake Total 22.083 120 Output Total 3487 725 0644 Balance -1177.917 -580 -1550 Weight 85.729 kg 97 kg Intake: Intake, IV Titration 22.083 Amount Diltiazem 125 mg In 22.083 Sodium Chloride 0.9% 100 ml @ 5 MG/HR 5 mls/hr IV .Q24H [facility] Rx#:[id number] Oral 120 Output: Urine [id number] Uretheral (Warner) 700 Other: Voiding Method Indwelling Catheter Indwelling Catheter Indwelling Catheter - Exam PHYSICAL EXAM: VITAL SIGNS: Reviewed. GENERAL: Well-developed in no acute distress. HEENT: Head is normocephalic. Pupils are equal, round. Sclerae anicteric. Mucous membranes of the mouth are moist. NECK: Supple. No JVD or thyromegaly RESPIRATORY: Respirations even and unlabored. Lungs diminished to auscultation bilaterally. Exertional shortness of breath CARDIO: Regular rate and rhythm. S1 and S2 heard. No murmur or gallops. EXTREMITIES: Normal range of motion. No clubbing or cyanosis. Peripheral pulses intact per Doppler. Mild to moderate bilateral lower extremity edema NEURO: Orientated to person, time, mood is appropriate - Labs CBC & Chem 7: 03/13/22 08:44 03/13/22 08:44 Labs: Abnormal Lab Results - Last 24 Hours (Table) 03/12/22 03/12/22 03/13/22 Range/Units 16:26 21:55 06:13 RBC (4.30-5.90) m/uL Hgb (13.0-17.5) gm/dL Hct (39.0-53.0) % RDW (11.5-15.5) % Lymphocytes # (1.0-4.8) k/uL Sodium (137-145) mmol/L BUN (9-20) mg/dL Creatinine (0.66-1.25) mg/dL POC Glucose (mg/dL) 119 H 197 H 148 H (70-110) mg/dL 03/13/22 03/13/22 03/13/22 Range/Units 08:44 08:44 11:39 RBC 2.87 L (4.30-5.90) m/uL Hgb 9.1 L (13.0-17.5) gm/dL Hct 27.8 L (39.0-53.0) % RDW 16.8 H (11.5-15.5) % Lymphocytes # 0.8 L (1.0-4.8) k/uL Sodium 135 L (137-145) mmol/L BUN 38 H (9-20) mg/dL Creatinine 1.63 H (0.66-1.25) mg/dL POC Glucose (mg/dL) 111 H (70-110) mg/dL Assessment and Plan Assessment: Acute exacerbation of chronic diastolic congestive heart failure Persistent atrial fibrillation with poorly controlled ventricular rate Plan: Continue with Lopressor 25 mg 3 times a day Increase amiodarone to 200 mg 3 times a day Continue with Eliquis for anticoagulation Continue with telemetry monitoring Strict I's and O's and daily weights Further recommendations based on clinical course The above impression and plan of care have been discussed and directed by the signing physician. Kelly Quiroz, nurse practitioner, acting as scribe for signing physician.
[2022-03-13 16:48] LABS: Glucose,Whole Blood 184 mg/dL (70-110)
[2022-03-13 20:33] LABS: Glucose,Whole Blood 116 mg/dL (70-110)
[2022-03-13] MEDS ORDERED: MIDODRINE 5 MG TAB PO ONE (21:01)
[2022-03-13] MEDS: QUEtiapine 50 MG TAB PO SCH (21:06)
--- NOTE | 2022-03-13 23:56 | P.PN ---
Subjective Progress Note Date: 03/13/22 Patient is a 71-year-old male with a known history of atrial fibrillation on anticoagulation with, COPD, history of CVA/TIA, hypertension, hyperlipidemia, history of NE and chronic back pain, coronary artery disease with history of CABG and also stent placement and previous history of smoking presents to ER due to complaints of worsening shortness of breath and leg swelling. Patient was recently just discharged from the hospital on 03/08/2022. He was admitted to the hospital due to colitis colitis and acute kidney injury and hypotension. Patient was patient was on diuretics and spironolactone which was discontinued due to hypotension and acute kidney injury. Patient was started on midodrine and also hydrocortisone tapering course. Patient was discharged home with improvement in blood pressure and kidney function. Patient presented to ER due to worsening leg swelling. He was also found to have atrial fibrillation with rapid regular rate on admission. Patient does take anticoagulation with Eliquis. Chest x-ray showed correlate for congestive heart failure, pulmonary venous hypertension and interstitial edema. Pneumonia not excluded. EKG showed atrial fibrillation with rapid regular response. Laboratory data showed WBC 7.9 hemoglobin 9.9 platelets 238 INR 1.3 sodium 135 potassium 4.1 chloride 104 bicarb is 19 BUN 33 and creatinine 1.44 blood sugar is 163. Magnesium 1.5 and total bilirubin 1.4 proBNP 10 800, albumin 2.9, troponin x3 negative. 03/13/2022 Patient was admitted to the hospital due to acute CHF, A. fib with RVR.. Patient is currently resting in the bed. Awake alert and oriented x3. Breathing status is better today. Denies any worsening shortness of breath. No complaints of chest pain or shortness of breath. Leg swelling did improve. Otherwise patient remains hypotensive. Heart rate is still elevated. Cardizem drip has been discontinued and patient was started on metoprolol 25 mg 3 times daily. Patient is also on midodrine 5 mg 3 times daily for hypotension. Laboratory showed WBC 8.9 hemoglobin 9.1 and platelets 319 Sodium 135 potassium 3.8 chloride 101 bicarb is 22 BUN 38 and creatinine 1.63 and calcium 8.5. Current medications reviewed. Objective - Vital Signs Vital signs: Vital Signs Temp 98.0 F 03/13/22 07:37 Pulse 117 H 03/13/22 09:20 Resp 22 03/13/22 07:37 BP 81/50 03/13/22 09:20 Pulse Ox 92 L 03/13/22 07:37 FiO2 Intake & Output 03/12/22 03/13/22 03/13/22 18:59 06:59 18:59 Intake Total 22.083 120 Output Total 5896 701 2666 Balance -1177.917 -580 -3410 Weight 85.729 kg 97 kg Intake: Intake, IV Titration 22.083 Amount Diltiazem 125 mg In 22.083 Sodium Chloride 0.9% 100 ml @ 5 MG/HR 5 mls/hr IV .Q24H [facility] Rx#:[id number] Oral 120 Output: Urine [id number] Uretheral (Warner) 700 Other: Voiding Method Indwelling Catheter Indwelling Catheter Indwelling Catheter - Exam PHYSICAL EXAMINATION: Patient is lying in the bed comfortably, no acute distress, awake alert but lethargic and drowsy... HEENT: Normocephalic. Neck is supple. Pupils reactive. Nostrils clear. Oral cavity is moist. Neck reveals no JVD, carotid bruits, or thyromegaly. CHEST EXAMINATION: Trachea is central. Symmetrical expansion. Bibasilar diminished sounds and left basilar crackles.. CARDIAC: Normal S1, S2 with no gallops. No murmurs ABDOMEN: Soft. Bowel sounds present. Nontender. No organomegaly. No abdominal bruits. Extremities: 1+ pedal edema. No clubbing or cyanosis Neurologically awake, alert, oriented x2-3 with well-coordinated movements. No focal deficits noted Skin: No rash or skin lesions. Psychiatric: Coperative. Nonsuicidal, anxious. Musculoskeletal: No joint swelling or deformity. Normal range of motion. - Labs CBC & Chem 7: 03/13/22 08:44 03/13/22 08:44 Labs: Abnormal Lab Results - Last 24 Hours (Table) 03/12/22 03/12/22 03/12/22 Range/Units 11:57 11:57 16:26 RBC 3.13 L (4.30-5.90) m/uL Hgb 9.9 L (13.0-17.5) gm/dL Hct 30.5 L (39.0-53.0) % RDW 16.8 H (11.5-15.5) % Lymphocytes # 0.5 L (1.0-4.8) k/uL PT 13.3 H (9.0-12.0) sec INR 1.3 H (<1.2) Sodium (137-145) mmol/L BUN (9-20) mg/dL Creatinine (0.66-1.25) mg/dL POC Glucose (mg/dL) 119 H (70-110) mg/dL 03/12/22 03/13/22 03/13/22 Range/Units 21:55 06:13 08:44 RBC 2.87 L (4.30-5.90) m/uL Hgb 9.1 L (13.0-17.5) gm/dL Hct 27.8 L (39.0-53.0) % RDW 16.8 H (11.5-15.5) % Lymphocytes # 0.8 L (1.0-4.8) k/uL PT (9.0-12.0) sec INR (<1.2) Sodium (137-145) mmol/L BUN (9-20) mg/dL Creatinine (0.66-1.25) mg/dL POC Glucose (mg/dL) 197 H 148 H (70-110) mg/dL 03/13/22 03/13/22 Range/Units 08:44 11:39 RBC (4.30-5.90) m/uL Hgb (13.0-17.5) gm/dL Hct (39.0-53.0) % RDW (11.5-15.5) % Lymphocytes # (1.0-4.8) k/uL PT (9.0-12.0) sec INR (<1.2) Sodium 135 L (137-145) mmol/L BUN 38 H (9-20) mg/dL Creatinine 1.63 H (0.66-1.25) mg/dL POC Glucose (mg/dL) 111 H (70-110) mg/dL Assessment and Plan Assessment: Acute on chronic CHF likely diastolic dysfunction Persistent atrial fibrillation with rapid ventricular rate Hypotension Recent admission with colitis and acute kidney injury History of CVA/TIA Hypertension Hyperlipidemia History of NE neck and COPD not in exacerbation Coronary artery disease history of CABG and stent placement next and prior history of smoking extremity due to prophylaxis patient is already on anticoagulation Plan: Patient will be continued on Cardizem drip. Patient was hypotensive and will be continued on Midodrin Continue with IV diuresis as blood pressure tolerates. Cardiology was consulted. Metoprolol dose changed to 3 times daily and increase Remeron dose. Continue the home medications including anticoagulation with Eliquis.follow up closely. Discussed with his at bedside in detail. Prognosis is guarded. Time with Patient: Greater than 30
[2022-03-14] MEDS: MIDODRINE 5 MG TAB PO SCH ×4 (00:42→16:34)
[2022-03-14] MEDS: FUROSEMIDE 10 MG/ML 4 ML VIAL IV SCH ×2 (01:39→10:18)
[2022-03-14 06:06] LABS: Glucose,Whole Blood 108 mg/dL (70-110)
[2022-03-14] MEDS: INSULIN ASPART (NovoLOG) 100 UNIT/ML VIAL SQ SCH ×4 (06:09→22:10)
[2022-03-14] MEDS: PANTOPRAZOLE 40 MG TABLET PO SCH (06:46)
[2022-03-14 08:15] LABS: Anisocytosis Slight; Basophils # (A) 0.1 k/uL (0-0.2); Basophils % (A) 1 %; Calcium 8.3 mg/dL (8.4-10.2); Eosinophils # (A) 0.7 k/uL (0-0.7); Eosinophils % (A) 9 %; HCT 27.5 % (39.0-53.0); HGB 8.9 gm/dL (13.0-17.5); Hypochromasia Slight; Lymphocytes # (A) 0.9 k/uL (1.0-4.8); Lymphocytes % (A) 11 %; MCH 30.8 pg (25.0-35.0); MCHC 32.4 g/dL (31.0-37.0); Mean Platelet Volume 7.1; Monocytes # (A) 0.5 k/uL (0-1.0); Monocytes % (A) 6 %; Neutrophils # (A) 5.5 k/uL (1.3-7.7); Neutrophils % (A) 70 %; Platelet Count 310 k/uL (150-450); Poikilocytosis Slight; Potassium 3.6 mmol/L (3.5-5.1); RBC 2.89 m/uL (4.30-5.90); RDW 16.5 % (11.5-15.5); WBC 7.8 k/uL (3.8-10.6)
--- NOTE | 2022-03-14 10:08 | P.PN ---
Subjective Progress Note Date: 03/14/22 Principal diagnosis: Lower extremity edema Pleasant 71-year-old male who had presented to the emergency department with complaints of shortness of breath. Vascular surgery was consulted regarding lower extremity swelling. He was seen by vascular surgery elevation. Today he states his swelling has completely resolved. He is denying any shortness of breath or chest pain. He states he feels well overall. Objective - Vital Signs Vital signs: Vital Signs Temp 97.7 F 03/14/22 09:46 Pulse 116 H 03/14/22 09:46 Resp 16 03/14/22 09:46 BP 92/55 03/14/22 09:46 Pulse Ox 90 L 03/14/22 09:46 FiO2 Intake & Output 03/13/22 03/14/22 03/14/22 18:59 06:59 18:59 Intake Total 600 240 Output Total 2200 600 Balance -2200 0 240 Weight 94.5 kg Intake: Oral 600 240 Output: Urine 2200 600 Other: Voiding Method Indwelling Catheter Indwelling Catheter - Exam General appearance: The patient is alert, oriented, appears in no acute distress. HET: Head is normocephalic and atraumatic. Pupils are equal and reactive. Neck: Supple without lymphadenopathy. Trachea midline. Extremities: Normal skin color and turgor. No swelling bilateral lower extremities. Palpable DP pulses. Good capillary refill. Warm to the touch. No discoloration noted. Full range of motion. Neurological: No focal deficits. Strength and sensation are grossly intact. - Labs CBC & Chem 7: 03/14/22 07:38 03/14/22 07:38 Labs: Abnormal Lab Results - Last 24 Hours (Table) 03/13/22 03/13/22 03/13/22 Range/Units 08:44 11:39 16:46 RBC (4.30-5.90) m/uL Hgb (13.0-17.5) gm/dL Hct (39.0-53.0) % RDW (11.5-15.5) % Lymphocytes # (1.0-4.8) k/uL Sodium 135 L (137-145) mmol/L BUN 38 H (9-20) mg/dL Creatinine 1.63 H (0.66-1.25) mg/dL POC Glucose (mg/dL) 111 H 184 H (70-110) mg/dL Calcium (8.4-10.2) mg/dL 03/13/22 03/14/22 03/14/22 Range/Units 20:19 07:38 07:38 RBC 2.89 L (4.30-5.90) m/uL Hgb 8.9 L (13.0-17.5) gm/dL Hct 27.5 L (39.0-53.0) % RDW 16.5 H (11.5-15.5) % Lymphocytes # 0.9 L (1.0-4.8) k/uL Sodium 134 L (137-145) mmol/L BUN 42 H (9-20) mg/dL Creatinine 1.71 H (0.66-1.25) mg/dL POC Glucose (mg/dL) 116 H (70-110) mg/dL Calcium 8.3 L (8.4-10.2) mg/dL Assessment and Plan Assessment: 1. Lower extremities swelling, likely secondary to cardiac/CHF, now improved 2. Likely some degree of peripheral arterial disease, asymptomatic Plan: Continue elevation of lower extremities with compression stockings. Patient may follow-up with vascular surgery on an outpatient basis. On no indication for any vascular surgical intervention. We will sign off at this time. Thank you for this consultation, the patient is cleared from a vascular surgical standpoint for discharge. The impression and plan of care has been dictated as directed. I performed a history and examination of this patient, discussed the same with the dictator. I agree with the dictator's note ,documented as a scribe. Any a dditional findings or plans will be noted.
[2022-03-14] MEDS: METOPROLOL TARTRATE 25 MG TAB PO SCH (10:18)
[2022-03-14] MEDS: DOCUSATE 100 MG CAP PO SCH (10:19)
[2022-03-14] MEDS: AMIODARONE 200 MG TAB PO SCH ×3 (10:19→22:09)
[2022-03-14] MEDS: HYDROCORTISONE 10 MG TAB PO SCH ×2 (10:19→10:30)
[2022-03-14] MEDS: APIXABAN 5 MG TAB PO SCH ×2 (10:20→22:10)
[2022-03-14] MEDS: SODIUM BICARBONATE TAB 650 MG TAB PO SCH ×2 (10:20→22:10)
[2022-03-14] MEDS: HYDROCORTISONE SUCCINATE 100 MG/2 ML VIAL IV SCH ×3 (10:38→23:52)
[2022-03-14] MEDS: SODIUM CHLORIDE 0.9% 1,000 ML IV SCH ×2 (10:42→15:57)
[2022-03-14] MEDS ORDERED: POTASSIUM CHLORIDE ER 20 MEQ TAB.ER PO STA (11:11)
--- NOTE | 2022-03-14 11:14 | P.NPCON ---
History of Present Illness - Reason for Consult acute renal failure, chronic renal failure - History of Present Illness Reason for consultation: Acute kidney injury on chronic kidney disease History of present illness: Patient is a 71-year-old male seen in renal consultation for acute kidney injury on chronic kidney disease. Patient has chronic kidney disease stage IIIA with baseline creatinine near 1.1 secondary to diabetic kidney disease. Creatinine was 1.44 on admission and is 1.71 today. Patient presented with shortness of breath. He was noted to be in A. fib with RVR and is being followed by cardiology. Patient also received IV Lasix this admission. Patient was noted to be hypotensive with blood pressure in the systolic 70s to 80s this morning. Lasix was held. He has a Warner catheter and is nonoliguric. Currently he's laying flat on bed. Denies chest pain. Denies vomiting or diarrhea. He denies use of nonsteroidals. Patient's cortisol level was low less admission and he was discharged home on Cortef. Cosyntropin stimulation test could not be done inpatient. Vital signs are stable. Blood pressure low. In A. fib. General: Awake. No acute distress. HEENT: Head exam is unremarkable. LUNGS: Breath sounds decreased. HEART: Irregular rate and rhythm. ABDOMEN: Soft, no distention. EXTREMITITES: No edema. Past Medical History Past Medical History: Atrial Fibrillation, Coronary Artery Disease (CAD), COPD, CVA/TIA, Diabetes Mellitus, GERD/Reflux, Hyperlipidemia, Hypertension, Myocardial Infarction (RI), Renal Disease Additional Past Medical History / Comment(s): COPD, CVA multiple one in 1997, carotid artery disease, diabetes mellitus, chronic back pain, tenosynovitis involving the wrists and hands bilaterally, chronic renal failure, mild aortic stenosis with a peak gradient across the aortic valve of 70 mmHg; three heart attacks, last in 2001, colitis, recent discharge (4 days prior to admission) for "colitis attack and low iron" Last Myocardial Infarction Date:: 2001 History of Any Multi-Drug Resistant Organisms: None Reported Past Surgical History: Coronary Bypass/CABG, Heart Catheterization With Stent, Hernia Repair Additional Past Surgical History / Comment(s): March 1998 Cabg TRIPLE vessel by Dr. Ge. Cath with 3 stents. 4th stent 2016 at [place], COLONOSCOPY last one in August, pneumothorax Past Anesthesia/Blood Transfusion Reactions: No Reported Reaction Date of Last Stent Placement:: March 19982015 Past Psychological History: No Psychological Hx Reported Additional Psychological History / Comment(s): Pt lives with his in their home. He is wheelchair bound. Daughter goes to house 4-5x a day to help. Smoking Status: Former smoker Past Alcohol Use History: None Reported Past Drug Use History: None Reported - Past Family History Father Family Medical History: Cancer Additional Family Medical History / Comment(s): Leukemia Father of leukemia at age 32yrs Mother Family Medical History: COPD Additional Family Medical History / Comment(s): Mother was 76 when she . She had mental illness. Sister(s) Family Medical History: Coronary Artery Disease (CAD), CVA/TIA Brother(s) Family Medical History: Coronary Artery Disease (CAD) Medications and Allergies Home Medications Medication Instructions Recorded Confirmed Type Amiodarone [Cordarone] 200 mg PO DAILY 11/02/21 03/12/22 History Apixaban [Eliquis] 5 mg PO BID 11/02/21 03/12/22 History Escitalopram [Lexapro] 20 mg PO DAILY 11/02/21 03/12/22 History Ascorbic Acid [Vitamin C] 1,000 mg PO DAILY 03/02/22 03/12/22 History Cholecalciferol [Vitamin D3 (125 125 mcg PO DAILY 03/02/22 03/12/22 History Mcg = 5000 Iu)] QUEtiapine [SEROquel] 50 mg PO HS 03/02/22 03/12/22 History Zinc 50 mg PO DAILY 03/02/22 03/12/22 History sitaGLIPtin PHOSPHATE [Januvia] 100 mg PO DAILY 03/02/22 03/12/22 History Acetaminophen Tab [Tylenol] 650 mg PO Q6HR PRN tab 03/08/22 03/12/22 Rx Midodrine [ProAmatine] 5 mg PO AC-TID 30 Days #90 tab 03/08/22 03/12/22 Rx Pantoprazole [Protonix] 40 mg PO AC-BRKFST #30 tab 03/08/22 03/12/22 Rx Sodium Bicarbonate Tab 650 mg PO BID 30 Days #60 tab 03/08/22 03/12/22 Rx Hydrocortisone [Cortef] See Taper PO BID 03/12/22 03/12/22 History Allergies Allergy/AdvReac Type Severity Reaction Status Date / Time codeine Allergy Unknown Verified 03/12/22 12:45 Childhood morphine Allergy Unknown Verified 03/12/22 12:45 Childhood Physical Exam Vitals: Vital Signs Temp Pulse Resp BP BP Pulse Ox 03/14/22 10:16 88/55 03/14/22 09:46 97.7 F 116 H 16 78/45 92/55 90 L 03/14/22 04:00 98.1 F 117 H 18 93/55 93 L 03/14/22 01:39 117 H 19 03/14/22 00:00 97.8 F 117 H 19 88/54 91 L 03/13/22 20:00 98.1 F 120 H 19 90/56 93 L 03/13/22 16:56 119 H 89/57 90 L 03/13/22 15:11 98.2 F 120 H 22 96/60 90 L 03/13/22 13:15 125 H 03/13/22 12:15 125 H 101/63 94 L 03/13/22 11:27 127 H 20 86/54 86 L Intake and Output 03/13/22 03/14/22 03/14/22 22:59 06:59 14:59 Intake Total 600 240 Output Total 650 600 Balance -650 0 240 Intake: Oral 600 240 Output: Urine 650 600 Other: Voiding Method Indwelling Catheter Indwelling Catheter Indwelling Catheter Weight 94.5 kg 94.5 kg Results - Lab Results Most recent lab results Calcium 8.3 mg/dL (8.4-10.2) L 03/14/22 07:38 Magnesium 1.5 mg/dL (1.6-2.3) L 03/12/22 11:57 03/14/22 07:38 03/14/22 07:38 Assessment and Plan Plan: Assessment: 1. Acute kidney injury secondary to ATN secondary to hypotension. Creatinine 1.71 today. UA benign from earlier this month. No hydronephrosis noted on CT done 03/02/2022. 2. Chronic kidney disease stage 2/IIIa with baseline creatinine near 1-1.1 secondary to nephrosclerosis. 3. A. fib with RVR. Cardiology following. 4. Anemia of chronic kidney disease. Rule out iron deficiency. 5. Chronic systolic CHF with ejection fraction of 40-45% with mild mitral and tricuspid regurgitation. 6. Concern for adrenal insufficiency with low cortisol level last admission maintained on Cortef. Plan: Hold Lasix today. Change oral Cortef to IV hydrocortisone 50 mg every 8 hours. Maintain midodrine. Avoid nephrotoxins. Replace potassium. Continue to monitor renal function and urine output. Patient will need to follow-up with endocrinology outpatient for further workup for adrenal insufficiency. Thank you for the consultation. I will continue to follow the patient with you during his hospital stay.
[2022-03-14 11:31] LABS: Glucose,Whole Blood 93 mg/dL (70-110)
[2022-03-14] MEDS ORDERED: IPRATROPIUM-ALBUTEROL 3 ML NEB INHALATION PRN (12:33)
[2022-03-14] MEDS: IPRATROPIUM-ALBUTEROL 3 ML NEB INHALATION SCH ×2 (12:38→19:19)
--- NOTE | 2022-03-14 13:05 | XR ---
EXAMINATION TYPE: XR chest 1V portable DATE OF EXAM: 03/14/2022 COMPARISON: Chest x-ray 03/12/2022 HISTORY: Shortness of breath TECHNIQUE: Single frontal view of the chest is obtained. FINDINGS: Patient is post median sternotomy and rotated. Cardiac mediastinal silhouette is likely st able, heart thought to be enlarged. Airspace disease suspected bilaterally. There is no evident pneum othorax. Blunting the costophrenic angles is again seen. IMPRESSION: Correlate for congestive heart failure, pneumonia not excluded.
--- NOTE | 2022-03-14 14:21 | P.PN ---
Subjective Progress Note Date: 03/14/22 HISTORY OF PRESENT ILLNESS: This is a 71-year-old male, patient of Dr. Mcfarland, who was admitted to the hospital secondary to congestive heart failure and atrial fibrillation with RVR. The patient has a history of ischemic cardiomyopathy with previous stenting 3. Echocardiogram completed revealing ejection fraction 40-45%. Patient examined this morning at the bedside. He denies chest pain or pressure. Denies SOB. Denies palpitations. Patient is laying flat in bed and appears control. The patient is hypotensive this morning with a systolic in the 80s. Telemetry reviewed with Dr. Macias which appears to be atrial flutter with a heart rate ranging between [id number]. PHYSICAL EXAM: VITAL SIGNS: Reviewed. GENERAL: Well-developed in no acute distress. NECK: Supple. No JVD or thyromegaly LUNGS: Respirations even and unlabored. Lungs diminished to auscultation bilaterally. HEART: Tachycardic. Regular rate and rhythm. S1 and S2 heard. EXTREMITIES: Normal range of motion. No clubbing or cyanosis. Peripheral pulses intact. No lower extremity edema ASSESSMENT: Acute on chronic heart failure with reduced ejection fraction, EF 40-45% Paroxysmal atrial fibrillation/typical atrial flutter with RVR Hypotension, concern for adrenal insufficiency with low cortisol level last admission, on Cortef outpatient Acute on chronic kidney disease PLAN: Patient remains hypotensive this morning. Discontinue IV lasix and metoprolol Give 250cc NS bolus Case discussed with nephrology. Will attempt IV hydrocortisone. If patient continues to remain hypotensive, will consider CV as atrial flutter with uncontrolled HR may be contributing to patients hypotension Further recommendations pending patient course Nurse practitioner note has been reviewed by physician. Signing provider agrees with the documented findings, assessment, and plan of care. Objective - Vital Signs Vital signs: Vital Signs Temp 97.7 F 03/14/22 09:46 Pulse 119 H 03/14/22 12:22 Resp 16 03/14/22 09:46 BP 95/61 03/14/22 12:22 Pulse Ox 96 03/14/22 13:46 FiO2 Intake & Output 03/13/22 03/14/22 03/14/22 18:59 06:59 18:59 Intake Total 600 240 Output Total 2200 600 250 Balance -2200 0 -10 Weight 94.5 kg 94.5 kg Intake: Oral 600 240 Output: Urine 2200 600 250 Other: Voiding Method Indwelling Catheter Indwelling Catheter Indwelling Catheter - Labs CBC & Chem 7: 03/14/22 07:38 03/14/22 07:38 Labs: Abnormal Lab Results - Last 24 Hours (Table) 03/13/22 03/13/22 03/14/22 Range/Units 16:46 20:19 07:38 RBC 2.89 L (4.30-5.90) m/uL Hgb 8.9 L (13.0-17.5) gm/dL Hct 27.5 L (39.0-53.0) % RDW 16.5 H (11.5-15.5) % Lymphocytes # 0.9 L (1.0-4.8) k/uL Sodium (137-145) mmol/L BUN (9-20) mg/dL Creatinine (0.66-1.25) mg/dL POC Glucose (mg/dL) 184 H 116 H (70-110) mg/dL Calcium (8.4-10.2) mg/dL 03/14/22 Range/Units 07:38 RBC (4.30-5.90) m/uL Hgb (13.0-17.5) gm/dL Hct (39.0-53.0) % RDW (11.5-15.5) % Lymphocytes # (1.0-4.8) k/uL Sodium 134 L (137-145) mmol/L BUN 42 H (9-20) mg/dL Creatinine 1.71 H (0.66-1.25) mg/dL POC Glucose (mg/dL) (70-110) mg/dL Calcium 8.3 L (8.4-10.2) mg/dL
--- NOTE | 2022-03-14 15:23 | PN ---
PROGRESS NOTE DATE OF SERVICE: 03/14/2022 This 71-year-old gentleman who was admitted with acute on chronic CHF, also had some COPD as well. The patient still has shortness of breath. No chest pain. No palpitations. No fever. PHYSICAL EXAMINATION: Pulse is 119, blood pressure 95/61, respirations 16, temperature normal, pulse ox 87 percent. HEENT: Conjunctivae normal. Neck: No JVD. Cardiovascular: S1, S2. Respiration: Bilateral scattered rhonchi and crackles. Abdomen: Soft. Nervous system: No focal deficits. LABS: Hemoglobin 8.9. Other labs are noted. Creatinine 1.71. ASSESSMENT: 1. Acute on chronic congestive heart failure with diastolic dysfunction. 2. Atrial fibrillation. 3. Hypotension. 4. History of cerebrovascular accident, transient ischemic attack. 5. History of colitis and acute kidney injury. RECOMMENDATIONS AND DISCUSSION: Recommend to continue current medications, management and symptomatic treatment. Add bronchodilators and continue with diuretics. Otherwise, we will repeat labs. Nephrology evaluation. Prognosis guarded. Further recommendations to follow. See orders for details. MMODL / IJN: [id number] /
[2022-03-14 16:29] LABS: Glucose,Whole Blood 217 mg/dL (70-110)
[2022-03-14 21:00] LABS: Glucose,Whole Blood 272 mg/dL (70-110)
[2022-03-14] MEDS: QUEtiapine 50 MG TAB PO SCH (22:10)
[2022-03-15 05:58] LABS: Glucose,Whole Blood 161 mg/dL (70-110)
[2022-03-15] MEDS: PANTOPRAZOLE 40 MG TABLET PO SCH (06:30)
[2022-03-15] MEDS: INSULIN ASPART (NovoLOG) 100 UNIT/ML VIAL SQ SCH ×4 (06:30→20:23)
[2022-03-15] MEDS: MIDODRINE 5 MG TAB PO SCH ×3 (06:30→17:32)
[2022-03-15] MEDS: IPRATROPIUM-ALBUTEROL 3 ML NEB INHALATION SCH ×3 (07:50→20:33)
[2022-03-15] MEDS: HYDROCORTISONE SUCCINATE 100 MG/2 ML VIAL IV SCH ×3 (08:44→23:58)
[2022-03-15] MEDS: DOCUSATE 100 MG CAP PO SCH (08:44)
[2022-03-15] MEDS: AMIODARONE 200 MG TAB PO SCH ×2 (08:44→20:23)
[2022-03-15] MEDS: APIXABAN 5 MG TAB PO SCH ×2 (08:45→20:23)
[2022-03-15] MEDS: SODIUM BICARBONATE TAB 650 MG TAB PO SCH ×2 (08:45→20:23)
--- NOTE | 2022-03-15 09:32 | P.PN ---
Subjective Patient is seen in follow-up for acute kidney injury. Remains in A. fib. On oral amiodarone. Blood pressure on the lower side. Nonoliguric. Denies chest pain or shortness of breath. Oral intake fair. Vital signs are stable. In A. fib. General: Awake. No acute distress. HEENT: Head exam is unremarkable. LUNGS: Breath sounds decreased. HEART: Irregular rate and rhythm. ABDOMEN: Soft, no distention. EXTREMITITES: No edema. Objective - Vital Signs Vital signs: Vital Signs Temp 97.3 F L 03/15/22 08:00 Pulse 111 H 03/15/22 08:01 Resp 18 03/15/22 08:01 BP 71/32 03/15/22 08:00 Pulse Ox 92 L 03/15/22 08:00 FiO2 Intake & Output 03/14/22 03/15/22 03/15/22 18:59 06:59 18:59 Intake Total 860 1440 Output Total 250 350 200 Balance 610 1090 -200 Weight 94.5 kg 96 kg Intake: Oral 860 1440 Output: Urine 250 350 200 Other: Voiding Method Indwelling Catheter Indwelling Catheter - Labs CBC & Chem 7: 03/14/22 07:38 03/14/22 07:38 Labs: Abnormal Lab Results - Last 24 Hours (Table) 03/14/22 03/14/22 03/15/22 Range/Units 16:28 20:58 05:56 POC Glucose (mg/dL) 217 H 272 H 161 H (70-110) mg/dL Assessment and Plan Plan: Assessment: 1. Acute kidney injury secondary to ATN secondary to hypotension. Creatinine 1.71 yesterday. UA benign from earlier this month. No hydronephrosis noted on CT done 03/02/2022. 2. Chronic kidney disease stage 2/IIIa with baseline creatinine near 1-1.1 secondary to nephrosclerosis. 3. A. fib with RVR. Cardiology following. On oral amiodarone. ?Cardioversion. 4. Anemia of chronic kidney disease. Rule out iron deficiency. 5. Chronic systolic CHF with ejection fraction of 40-45% with mild mitral and tricuspid regurgitation. 6. Concern for adrenal insufficiency with low cortisol level last admission maintained on Cortef. Plan: Continue to hold diuretics for now due to hypotension. Maintain IV hydrocortisone 50 mg every 8 hours. Maintain midodrine. Avoid nephrotoxins. Potassium replaced. Continue to monitor renal function and urine output. Patient will need to follow-up with endocrinology outpatient for further workup for adrenal insufficiency. Follow-up morning labs. Check iron studies.
[2022-03-15 10:25] LABS: Calcium 8.1 mg/dL (8.4-10.2); Magnesium 2.1 mg/dL (1.6-2.3); Potassium 3.7 mmol/L (3.5-5.1)
[2022-03-15 11:51] LABS: Glucose,Whole Blood 213 mg/dL (70-110)
--- NOTE | 2022-03-15 13:38 | P.PN ---
Subjective Progress Note Date: 03/15/22 HISTORY OF PRESENT ILLNESS: This is a 71-year-old male, patient of Dr. Mcfarland, who was admitted to the hospital secondary to congestive heart failure and atrial fibrillation with RVR. The patient has a history of ischemic cardiomyopathy with previous stenting 3. Echocardiogram completed revealing ejection fraction 40-45%. Patient examined this morning at the bedside. He denies chest pain or pressure. Denies SOB. Denies palpitations. Patient is laying flat in bed and appears control. The patient is hypotensive this morning with a systolic in the 80s. Telemetry reviewed with Dr. Macias which appears to be atrial flutter with a heart rate ranging between [id number]. 03/15/2022 Patient examined this morning at the bedside. Patient denies chest pain or pressure. He denies shortness of breath. He is laying flat in bed and appears comfortable. Patient's blood pressures remain on the lower side with a systolic in the 90s. EKG completed yesterday reveals atrial flutter with uncontrolled ventricular rate. Patients metoprolol was discontinued secondary to hypotension. PHYSICAL EXAM: VITAL SIGNS: Reviewed. GENERAL: Well-developed in no acute distress. NECK: Supple. No JVD or thyromegaly LUNGS: Respirations even and unlabored. Lungs diminished to auscultation bilaterally. HEART: Tachycardic. Regular rate and rhythm. S1 and S2 heard. EXTREMITIES: Normal range of motion. No clubbing or cyanosis. Peripheral pulses intact. No lower extremity edema ASSESSMENT: Acute on chronic heart failure with reduced ejection fraction, EF 40-45% Paroxysmal atrial fibrillation/typical atrial flutter with RVR Hypotension, concern for adrenal insufficiency with low cortisol level last admission, on Cortef outpatient Acute on chronic kidney disease PLAN: Continue to hold metoprolol secondary to hypotension Increase amiodarone to 400 mg twice a day Continue telemetry monitoring Continue to monitor blood pressure Further recommendations pending patient course Nurse practitioner note has been reviewed by physician. Signing provider agrees with the documented findings, assessment, and plan of care. Objective - Vital Signs Vital signs: Vital Signs Temp 97.3 F L 03/15/22 08:00 Pulse 110 H 03/15/22 12:12 Resp 18 03/15/22 12:12 BP 140/86 03/15/22 12:00 Pulse Ox 94 L 03/15/22 12:00 FiO2 Intake & Output 03/14/22 03/15/22 03/15/22 18:59 06:59 18:59 Intake Total 860 1440 Output Total 250 350 200 Balance 610 1090 -200 Weight 94.5 kg 96 kg Intake: Oral 860 1440 Output: Urine 250 350 200 Other: Voiding Method Indwelling Catheter Indwelling Catheter Indwelling Catheter - Labs CBC & Chem 7: 03/14/22 07:38 03/15/22 09:32 Labs: Abnormal Lab Results - Last 24 Hours (Table) 03/14/22 03/14/22 03/15/22 Range/Units 16:28 20:58 05:56 Sodium (137-145) mmol/L Chloride (98-107) mmol/L BUN (9-20) mg/dL Creatinine (0.66-1.25) mg/dL Glucose (74-99) mg/dL POC Glucose (mg/dL) 217 H 272 H 161 H (70-110) mg/dL Calcium (8.4-10.2) mg/dL 03/15/22 03/15/22 Range/Units 09:32 11:46 Sodium 133 L (137-145) mmol/L Chloride 97 L (98-107) mmol/L BUN 41 H (9-20) mg/dL Creatinine 1.57 H (0.66-1.25) mg/dL Glucose 244 H (74-99) mg/dL POC Glucose (mg/dL) 213 H (70-110) mg/dL Calcium 8.1 L (8.4-10.2) mg/dL
[2022-03-15 15:14] LABS: % Iron Saturation 32.36 (15.00-50.00)
--- NOTE | 2022-03-15 15:18 | PN ---
PROGRESS NOTE DATE OF SERVICE: 03/15/2022 This 71-year-old gentleman was admitted with CHF acute exacerbation, also had relative hypotension. The patient being closely monitored at this time. The patient is slightly weak also. No chest pain. No palpitation. PHYSICAL EXAMINATION: Pulse is 112. Blood pressure 87/52. Respirations 18. Neck is no jugular venous distention. CARDIOVASCULAR: S1, S2. Respirations: Few scattered rhonchi. Abdomen: Soft. Nervous system: Mild diffuse weakness. LABS: Sodium 133 and creatinine is 1.57. Also had a chest x-ray done on 03/14, reviewed personally by me showed some evidence of CHF, right more than the left with suspected pneumonia as well. ASSESSMENT: 1. Acute on chronic congestive heart failure with diastolic dysfunction. 2. Possible right-sided pneumonia. 3. Atrial fibrillation. 4. Hypotension. 5. History of cerebrovascular accident/ transient ischemic attack. 6. History of colitis and kidney injury. RECOMMENDATIONS AND DISCUSSION: Recommend to continue current medications, symptomatic treatment. I recommend add Rocephin to the current regimen. Otherwise continue with rest of the medications. Monitor blood pressure closely. Monitor creatinine. Bronchodilators. Guarded prognosis because of multiple complex medical issues and further recommendations. Two- D echo was done on March 12, reviewed personally by me showed moderate LV systolic dysfunction and mild aortic stenosis as well. Ejection fraction found to be 40-45 percent. Prognosis guarded. FROYLAN / TENZINN: [id number] /
[2022-03-15 17:19] LABS: Glucose,Whole Blood 281 mg/dL (70-110)
[2022-03-15 20:12] LABS: Glucose,Whole Blood 213 mg/dL (70-110)
[2022-03-15] MEDS: QUEtiapine 50 MG TAB PO SCH (20:23)
[2022-03-16 06:03] LABS: Glucose,Whole Blood 188 mg/dL (70-110)
[2022-03-16] MEDS: MIDODRINE 5 MG TAB PO SCH ×3 (06:30→17:51)
[2022-03-16] MEDS: INSULIN ASPART (NovoLOG) 100 UNIT/ML VIAL SQ SCH ×4 (06:30→21:05)
[2022-03-16] MEDS: PANTOPRAZOLE 40 MG TABLET PO SCH (06:30)
[2022-03-16] MEDS: IPRATROPIUM-ALBUTEROL 3 ML NEB INHALATION SCH ×4 (08:17→19:59)
[2022-03-16] MEDS: HYDROCORTISONE SUCCINATE 100 MG/2 ML VIAL IV SCH ×2 (08:48→21:06)
[2022-03-16] MEDS: AMIODARONE 200 MG TAB PO SCH ×2 (08:49→21:05)
[2022-03-16] MEDS: APIXABAN 5 MG TAB PO SCH ×2 (08:49→21:07)
[2022-03-16] MEDS: SODIUM BICARBONATE TAB 650 MG TAB PO SCH ×2 (08:49→21:05)
[2022-03-16] MEDS: DOCUSATE 100 MG CAP PO SCH (08:49)
[2022-03-16 08:54] LABS: Calcium 8.4 mg/dL (8.4-10.2); Magnesium 2.2 mg/dL (1.6-2.3); Potassium 4.2 mmol/L (3.5-5.1)
--- NOTE | 2022-03-16 09:43 | P.PN ---
Subjective Patient is seen in follow-up for acute kidney injury. Remains in A. fib. On oral amiodarone - dose increased. Blood pressure on the lower side but stable. Nonoliguric. Denies chest pain or shortness of breath. Oral intake fair. Vital signs are stable. In A. fib. General: Awake. No acute distress. HEENT: Head exam is unremarkable. LUNGS: Breath sounds decreased. HEART: Irregular rate and rhythm. ABDOMEN: Soft, no distention. EXTREMITITES: No edema. Objective - Vital Signs Vital signs: Vital Signs Temp 97.6 F 03/16/22 04:00 Pulse 125 H 03/16/22 08:28 Resp 16 03/16/22 04:00 BP 98/60 03/16/22 04:00 Pulse Ox 90 L 03/16/22 08:42 FiO2 30 03/16/22 08:42 Intake & Output 03/15/22 03/16/22 03/16/22 18:59 06:59 18:59 Intake Total 240 Output Total 200 1275 Balance 40 -1275 Weight 95 kg Intake: Oral 240 Output: Urine 200 1275 Other: Voiding Method Indwelling Catheter Indwelling Catheter - Labs CBC & Chem 7: 03/14/22 07:38 03/16/22 08:02 Labs: Abnormal Lab Results - Last 24 Hours (Table) 03/15/22 03/15/22 03/15/22 Range/Units 09:32 09:35 11:46 Sodium 133 L (137-145) mmol/L Chloride 97 L (98-107) mmol/L BUN 41 H (9-20) mg/dL Creatinine 1.57 H (0.66-1.25) mg/dL Glucose 244 H (74-99) mg/dL POC Glucose (mg/dL) 213 H (70-110) mg/dL Calcium 8.1 L (8.4-10.2) mg/dL Iron 51 L (65-175) ug/dL TIBC 158 L (228-460) ug/dL Transferrin 113.0 L (204.0-354.0) mg/dL Ferritin 1214.0 H (22.0-322.0) ng/mL 03/15/22 03/15/22 03/16/22 Range/Units 17:12 20:10 06:02 Sodium (137-145) mmol/L Chloride (98-107) mmol/L BUN (9-20) mg/dL Creatinine (0.66-1.25) mg/dL Glucose (74-99) mg/dL POC Glucose (mg/dL) 281 H 213 H 188 H (70-110) mg/dL Calcium (8.4-10.2) mg/dL Iron (65-175) ug/dL TIBC (228-460) ug/dL Transferrin (204.0-354.0) mg/dL Ferritin (22.0-322.0) ng/mL 03/16/22 Range/Units 08:02 Sodium (137-145) mmol/L Chloride (98-107) mmol/L BUN 41 H (9-20) mg/dL Creatinine 1.26 H (0.66-1.25) mg/dL Glucose 143 H (74-99) mg/dL POC Glucose (mg/dL) (70-110) mg/dL Calcium (8.4-10.2) mg/dL Iron (65-175) ug/dL TIBC (228-460) ug/dL Transferrin (204.0-354.0) mg/dL Ferritin (22.0-322.0) ng/mL Assessment and Plan Plan: Assessment: 1. Acute kidney injury secondary to ATN secondary to hypotension. Renal function improving. Creatinine 1.26 today. UA benign from earlier this month. No hydronephrosis noted on CT done 03/02/2022. 2. Chronic kidney disease stage 2/IIIa with baseline creatinine near 1-1.1 secondary to nephrosclerosis. 3. A. fib with RVR. Cardiology following. On oral amiodarone. ?Cardioversion. 4. Anemia of chronic kidney disease. Iron replete. 5. Chronic systolic CHF with ejection fraction of 40-45% with mild mitral and tricuspid regurgitation. 6. Concern for adrenal insufficiency with low cortisol level last admission maintained on Cortef. Plan: Continue to hold diuretics for now due to hypotension. Maintain IV hydrocortisone - decrease to 50 mg IV twice daily. Maintain midodrine. Avoid nephrotoxins. Continue to monitor renal function and urine output. Patient will need to follow-up with endocrinology outpatient for further workup for adrenal insufficiency.
[2022-03-16 11:53] LABS: Glucose,Whole Blood 220 mg/dL (70-110)
[2022-03-16] MEDS ORDERED: IPRATROPIUM-ALBUTEROL 3 ML NEB INHALATION PRN (13:42)
--- NOTE | 2022-03-16 14:00 | P.PN ---
Subjective Progress Note Date: 03/16/22 HISTORY OF PRESENT ILLNESS: This is a 71-year-old male, patient of Dr. Mcfarland, who was admitted to the hospital secondary to congestive heart failure and atrial fibrillation with RVR. The patient has a history of ischemic cardiomyopathy with previous stenting 3. Echocardiogram completed revealing ejection fraction 40-45%. Patient examined this morning at the bedside. He denies chest pain or pressure. Denies SOB. Denies palpitations. Patient is laying flat in bed and appears control. The patient is hypotensive this morning with a systolic in the 80s. Telemetry reviewed with Dr. Macias which appears to be atrial flutter with a heart rate ranging between [id number]. 03/15/2022 Patient examined this morning at the bedside. Patient denies chest pain or pressure. He denies shortness of breath. He is laying flat in bed and appears comfortable. Patient's blood pressures remain on the lower side with a systolic in the 90s. EKG completed yesterday reveals atrial flutter with uncontrolled ventricular rate. Patients metoprolol was discontinued secondary to hypotension. 03/16/2022 Patient examined this morning at the bedside. Patient denies chest pain or pressure. Denies shortness of breath. Blood pressure this morning 100/56. He remains in atrial fibrillation with heart rates in the 120s. His amiodarone was increased yesterday. PHYSICAL EXAM: VITAL SIGNS: Reviewed. GENERAL: Well-developed in no acute distress. NECK: Supple. No JVD or thyromegaly LUNGS: Respirations even and unlabored. Lungs diminished to auscultation bilaterally. HEART: Tachycardic. Regular rate and rhythm. S1 and S2 heard. EXTREMITIES: Normal range of motion. No clubbing or cyanosis. Peripheral pulses intact. No lower extremity edema ASSESSMENT: Acute on chronic heart failure with reduced ejection fraction, EF 40-45% Paroxysmal atrial fibrillation/typical atrial flutter with RVR Hypotension, concern for adrenal insufficiency with low cortisol level last admission, on Cortef outpatient Acute on chronic kidney disease PLAN: Resume metoprolol at a smaller dose of 12.5mg BID Continue current dose of amiodarone Diuretics on hold secondary to hypotension Continue telemetry monitoring Continue to monitor blood pressure Further recommendations pending patient course Nurse practitioner note has been reviewed by physician. Signing provider agrees with the documented findings, assessment, and plan of care. Objective - Vital Signs Vital signs: Vital Signs Temp 97.5 F L 03/16/22 08:00 Pulse 125 H 03/16/22 08:28 Resp 18 03/16/22 08:00 BP 100/56 03/16/22 08:00 Pulse Ox 90 L 03/16/22 08:42 FiO2 30 03/16/22 08:42 Intake & Output 03/15/22 03/16/22 03/16/22 18:59 06:59 18:59 Intake Total 240 Output Total 200 1275 Balance 40 -1275 Weight 95 kg Intake: Oral 240 Output: Urine 200 1275 Other: Voiding Method Indwelling Catheter Indwelling Catheter - Labs CBC & Chem 7: 03/14/22 07:38 03/16/22 08:02 Labs: Abnormal Lab Results - Last 24 Hours (Table) 03/15/22 03/15/22 03/15/22 Range/Units 09:35 11:46 17:12 BUN (9-20) mg/dL Creatinine (0.66-1.25) mg/dL Glucose (74-99) mg/dL POC Glucose (mg/dL) 213 H 281 H (70-110) mg/dL Iron 51 L (65-175) ug/dL TIBC 158 L (228-460) ug/dL Transferrin 113.0 L (204.0-354.0) mg/dL Ferritin 1214.0 H (22.0-322.0) ng/mL 03/15/22 03/16/22 03/16/22 Range/Units 20:10 06:02 08:02 BUN 41 H (9-20) mg/dL Creatinine 1.26 H (0.66-1.25) mg/dL Glucose 143 H (74-99) mg/dL POC Glucose (mg/dL) 213 H 188 H (70-110) mg/dL Iron (65-175) ug/dL TIBC (228-460) ug/dL Transferrin (204.0-354.0) mg/dL Ferritin (22.0-322.0) ng/mL
--- NOTE | 2022-03-16 14:57 | XR ---
EXAMINATION TYPE: XR chest 1V portable DATE OF EXAM: 03/16/2022 COMPARISON: 03/14/2022 HISTORY: Shortness of breath TECHNIQUE: Single frontal view of the chest is obtained. FINDINGS: Cardiomegaly and postoperative change with a bilateral infiltrate and pleural effusion. No pneumothorax. Underlying COPD suspected. Pleural thickening or chronic rib deformities on the left s imilar to prior exam. IMPRESSION: Diffuse bilateral airspace disease with pleural effusion likely superimposed on a backgr ound of COPD. Correlate for diffuse pneumonia versus pulmonary edema.
--- NOTE | 2022-03-16 15:35 | PN ---
PROGRESS NOTE DATE OF SERVICE: 03/16/2022 This 71-year-old gentleman admitted with CHF acute exacerbation also had relative hypotension. The patient was hypoxic this morning and the patient needed Ventimask. The most recent chest x-ray showed some CHF. Patient is also started on antibiotics. Patient closely monitored. Past medical history reviewed. REVIEW OF SYSTEMS: 14 point review of systems is negative except as above. CURRENT MEDICATIONS: Reviewed and include: Rocephin, Cordarone. Dose and rest of medications reviewed. PHYSICAL EXAMINATION: Pulse is 120, blood pressure 100/53, respiration 18. HEENT: Conjunctivae normal. Neck: No JVD. Cardiovascular: S1, S2. Respirations: Bilateral scattered rhonchi and crackles. Abdomen: Soft, nontender. Legs: No edema. No swelling. Nervous system: Diffusely weak. LABS: Creatinine 1.6. ASSESSMENT: 1. Acute on chronic congestive heart failure with diastolic dysfunction. 2. Possible right-sided pneumonia. 3. Atrial fibrillation. 4. Hypertension, relative. 5. History of cerebrovascular accident/ transient ischemic attack. 6. History of colitis and kidney injury. RECOMMENDATIONS AND DISCUSSION: Recommend to continue current medications, symptomatic treatment. Otherwise, recommend chest x-ray. Continue with intensive bronchodilator treatment. Add Pulmicort to the current regimen. Guarded prognosis. Further recommendations to follow. See orders for details. MMODL / IJN: [id number] /
[2022-03-16] MEDS: BUDESONIDE 1 MG/2 ML NEBU INHALATION SCH ×2 (15:57→20:00)
[2022-03-16 16:40] LABS: Glucose,Whole Blood 270 mg/dL (70-110)
[2022-03-16] MEDS: METOPROLOL TARTRATE 12.5 MG TAB PO SCH ×2 (17:51→21:09)
[2022-03-16] MEDS: QUEtiapine 50 MG TAB PO SCH (21:05)
[2022-03-16 21:10] LABS: Glucose,Whole Blood 214 mg/dL (70-110)
[2022-03-17 06:17] LABS: Glucose,Whole Blood 143 mg/dL (70-110)
[2022-03-17] MEDS: INSULIN ASPART (NovoLOG) 100 UNIT/ML VIAL SQ SCH ×4 (06:53→20:37)
[2022-03-17] MEDS: PANTOPRAZOLE 40 MG TABLET PO SCH (06:53)
[2022-03-17] MEDS: MIDODRINE 5 MG TAB PO SCH ×3 (06:53→16:38)
[2022-03-17] MEDS: IPRATROPIUM-ALBUTEROL 3 ML NEB INHALATION SCH ×4 (08:53→20:26)
[2022-03-17] MEDS: BUDESONIDE 1 MG/2 ML NEBU INHALATION SCH (08:53)
[2022-03-17] MEDS: METOPROLOL TARTRATE 12.5 MG TAB PO SCH ×3 (09:14→19:57)
[2022-03-17] MEDS: AMIODARONE 200 MG TAB PO SCH ×2 (09:14→19:57)
[2022-03-17] MEDS: DOCUSATE 100 MG CAP PO SCH (09:14)
[2022-03-17] MEDS: APIXABAN 5 MG TAB PO SCH ×2 (09:14→19:57)
[2022-03-17] MEDS: SODIUM BICARBONATE TAB 650 MG TAB PO SCH ×2 (09:14→19:57)
[2022-03-17] MEDS: HYDROCORTISONE SUCCINATE 100 MG/2 ML VIAL IV SCH ×2 (09:15→19:57)
--- NOTE | 2022-03-17 09:21 | XR ---
EXAMINATION TYPE: XR chest 1V portable DATE OF EXAM: 03/17/2022 COMPARISON: 03/16/2022 HISTORY: Shortness of breath TECHNIQUE: Single frontal view of the chest is obtained. FINDINGS: Cardiomegaly and postoperative change with a bilateral infiltrate and pleural effusion. No pneumothorax. Underlying COPD suspected. Pleural thickening or chronic rib deformities on the left s imilar to prior exam. IMPRESSION: Diffuse bilateral airspace disease with pleural effusion likely superimposed on a backgr ound of COPD. Correlate for diffuse pneumonia versus pulmonary edema. No interval change.
[2022-03-17] MEDS ORDERED: FUROSEMIDE 10 MG/ML 4 ML VIAL IV STA (10:00)
--- NOTE | 2022-03-17 10:01 | P.PN ---
Subjective Patient is seen in follow-up for acute kidney injury. Remains in A. fib. On oral amiodarone and metoprolol. Blood pressure stable. Nonoliguric. Denies chest pain or shortness of breath. Oral intake fair. Vital signs are stable. In A. fib. General: Awake. No acute distress. HEENT: Head exam is unremarkable. LUNGS: Breath sounds decreased. HEART: Irregular rate and rhythm. ABDOMEN: Soft, no distention. EXTREMITITES: No edema. Objective - Vital Signs Vital signs: Vital Signs Temp 97.7 F 03/17/22 09:04 Pulse 130 H 03/17/22 09:04 Resp 22 03/17/22 09:04 BP 107/62 03/17/22 09:04 Pulse Ox 91 L 03/17/22 09:04 FiO2 40 03/17/22 09:04 Intake & Output 03/16/22 03/17/22 03/17/22 18:59 06:59 18:59 Intake Total 240 240 Output Total 300 1100 Balance -60 -1100 240 Intake: Oral 240 240 Output: Urine 300 1100 Other: Voiding Method Indwelling Catheter Indwelling Catheter - Labs CBC & Chem 7: 03/14/22 07:38 03/16/22 08:02 Labs: Abnormal Lab Results - Last 24 Hours (Table) 03/16/22 03/16/22 03/16/22 Range/Units 11:51 16:39 20:59 POC Glucose (mg/dL) 220 H 270 H 214 H (70-110) mg/dL 03/17/22 Range/Units 06:10 POC Glucose (mg/dL) 143 H (70-110) mg/dL Microbiology - Last 24 Hours (Table) 03/16/22 13:00 Gram Stain - Preliminary Sputum Sputum Culture - Preliminary Assessment and Plan Plan: Assessment: 1. Acute kidney injury secondary to ATN secondary to hypotension. Renal function improving. Creatinine 1.26 yesterday. UA benign from earlier this month. No hydronephrosis noted on CT done 03/02/2022. 2. Chronic kidney disease stage 2/IIIa with baseline creatinine near 1-1.1 secondary to nephrosclerosis. 3. A. fib with RVR. Cardiology following. On oral amiodarone and metoprolol. ?Cardioversion. 4. Anemia of chronic kidney disease. Iron replete. 5. Chronic systolic CHF with ejection fraction of 40-45% with mild mitral and tricuspid regurgitation. 6. Concern for adrenal insufficiency with low cortisol level last admission maintained on Cortef. Plan: Continue to hold diuretics for now due to hypotension. Maintain IV hydrocortisone - decreased dose to 50 mg IV twice daily on 03/16/2022. Maintain midodrine. Avoid nephrotoxins. Continue to monitor renal function and urine output. Patient will need to follow-up with endocrinology outpatient for further workup for adrenal insufficiency. Lasix 40 mg IV once today.
[2022-03-17 10:49] LABS: Anisocytosis Slight; Basophils # (A) 0.1 k/uL (0-0.2); Basophils % (A) 1 %; Eosinophils # (A) 0.1 k/uL (0-0.7); Eosinophils % (A) 1 %; HCT 31.2 % (39.0-53.0); HGB 9.5 gm/dL (13.0-17.5); Hypochromasia Marked; Lymphocytes # (A) 0.8 k/uL (1.0-4.8); Lymphocytes % (A) 8 %; MCH 30.7 pg (25.0-35.0); MCHC 30.6 g/dL (31.0-37.0); Macrocytosis Slight; Mean Platelet Volume 7.8; Monocytes # (A) 0.5 k/uL (0-1.0); Monocytes % (A) 4 %; Neutrophils # (A) 9.1 k/uL (1.3-7.7); Neutrophils % (A) 86 %; Platelet Count 355 k/uL (150-450); Poikilocytosis Slight; RBC 3.11 m/uL (4.30-5.90); RDW 16.3 % (11.5-15.5); WBC 10.6 k/uL (3.8-10.6)
[2022-03-17 10:58] LABS: MCV 100.3 fL (80.0-100.0)
[2022-03-17 11:04] LABS: Calcium 8.9 mg/dL (8.4-10.2); Potassium 4.1 mmol/L (3.5-5.1)
[2022-03-17 11:45] LABS: Glucose,Whole Blood 104 mg/dL (70-110)
--- NOTE | 2022-03-17 12:58 | P.PN ---
Subjective Progress Note Date: 03/17/22 HISTORY OF PRESENT ILLNESS: This is a 71-year-old male, patient of Dr. Mcfarland, who was admitted to the hospital secondary to congestive heart failure and atrial fibrillation with RVR. The patient has a history of ischemic cardiomyopathy with previous stenting 3. Echocardiogram completed revealing ejection fraction 40-45%. Patient examined this morning at the bedside. He denies chest pain or pressure. Denies SOB. Denies palpitations. Patient is laying flat in bed and appears control. The patient is hypotensive this morning with a systolic in the 80s. Telemetry reviewed with Dr. Macias which appears to be atrial flutter with a heart rate ranging between [id number]. 03/15/2022 Patient examined this morning at the bedside. Patient denies chest pain or pressure. He denies shortness of breath. He is laying flat in bed and appears comfortable. Patient's blood pressures remain on the lower side with a systolic in the 90s. EKG completed yesterday reveals atrial flutter with uncontrolled ventricular rate. Patients metoprolol was discontinued secondary to hypotension. 03/16/2022 Patient examined this morning at the bedside. Patient denies chest pain or pressure. Denies shortness of breath. Blood pressure this morning 100/56. He remains in atrial fibrillation with heart rates in the 120s. His amiodarone was increased yesterday. 03/17/2022 Patient examined this morning at the bedside. Patient denies chest pain or pressure. He reports mild shortness of breath. He is currently on 40% Ventimask. He received a 1 time dose of IV Lasix this morning per nephrology. Patient remains in atrial flutter with a heart rate around 130. Blood pressure slightly improved today with a reading of 102/64. Chest x-ray this morning revealed diffuse bilateral airspace disease with pleural effusions likely superimposed on a background of COPD. Correlate for diffuse pneumonia versus pulmonary edema. PHYSICAL EXAM: VITAL SIGNS: Reviewed. GENERAL: Well-developed in no acute distress. NECK: Supple. No JVD or thyromegaly LUNGS: Respirations even and unlabored. Lungs diminished to auscultation bilaterally. HEART: Tachycardic. Regular rate and rhythm. S1 and S2 heard. EXTREMITIES: Normal range of motion. No clubbing or cyanosis. Peripheral pulses intact. No lower extremity edema ASSESSMENT: Acute on chronic heart failure with reduced ejection fraction, EF 40-45% Possible pneumonia Acute hypoxic respiratory failure Paroxysmal atrial fibrillation/typical atrial flutter with RVR Hypotension, concern for adrenal insufficiency with low cortisol level last admission, on Cortef outpatient Acute on chronic kidney disease PLAN: Continue current dose of amiodarone Increase metoprolol to 12.5 mg 3 times a day Continue telemetry monitoring Diuretics per nephrology Continue to monitor blood pressure Pulmonary consulted for evaluation. Dr. Campos recommends transfer to the ICU. Will defer to pulmonary/ICU team. Further recommendations pending patient course Nurse practitioner note has been reviewed by physician. Signing provider agrees with the documented findings, assessment, and plan of care. Objective - Vital Signs Vital signs: Vital Signs Temp 97.7 F 03/17/22 09:04 Pulse 131 H 03/17/22 12:07 Resp 23 03/17/22 12:07 BP 102/64 03/17/22 12:07 Pulse Ox 94 L 03/17/22 12:07 FiO2 40 03/17/22 12:07 Intake & Output 03/16/22 03/17/22 03/17/22 18:59 06:59 18:59 Intake Total 240 240 Output Total 300 1100 Balance -60 -1100 240 Intake: Oral 240 240 Output: Urine 300 1100 Other: Voiding Method Indwelling Catheter Indwelling Catheter - Labs CBC & Chem 7: 03/17/22 09:55 03/17/22 09:55 Labs: Abnormal Lab Results - Last 24 Hours (Table) 03/16/22 03/16/22 03/17/22 Range/Units 16:39 20:59 06:10 RBC (4.30-5.90) m/uL Hgb (13.0-17.5) gm/dL Hct (39.0-53.0) % MCV (80.0-100.0) fL MCHC (31.0-37.0) g/dL RDW (11.5-15.5) % Neutrophils # (1.3-7.7) k/uL Lymphocytes # (1.0-4.8) k/uL BUN (9-20) mg/dL POC Glucose (mg/dL) 270 H 214 H 143 H (70-110) mg/dL 03/17/22 03/17/22 Range/Units 09:55 09:55 RBC 3.11 L (4.30-5.90) m/uL Hgb 9.5 L (13.0-17.5) gm/dL Hct 31.2 L (39.0-53.0) % MCV 100.3 H D (80.0-100.0) fL MCHC 30.6 L (31.0-37.0) g/dL RDW 16.3 H (11.5-15.5) % Neutrophils # 9.1 H (1.3-7.7) k/uL Lymphocytes # 0.8 L (1.0-4.8) k/uL BUN 36 H (9-20) mg/dL POC Glucose (mg/dL) (70-110) mg/dL Microbiology - Last 24 Hours (Table) 03/16/22 13:00 Gram Stain - Preliminary Sputum Sputum Culture - Preliminary
--- NOTE | 2022-03-17 13:40 | P.CNPUL ---
History of Present Illness Consult date: 03/17/22 Requesting physician: Lily Richardson Reason for consult: dyspnea, hypoxemia, pleural effusion, abnormal CXR/CT Chief complaint: Shortness of breath/CHF. History of present illness: Pulmonary consult dated 03/17/2022. 71-year-old male who presented to the emergency department on March 12, comp laining of shortness of breath. The patient had shortness of breath about a day or so prior to admission. The patient complained about being fatigued. There was no chest pain or palpitations. He denied any cough or phlegm production. No leg pain or leg swelling. The patient apparently denied any chest pain or chest discomfort. We were asked to see the patient today, for shortness of breath. Currently, he's on a 40% Venturi mask. His clinical picture is consistent with CHF. His BMP was elevated. He is on saline at KVO. I placed the patient on BiPAP at 12/5 and 40%, to see we can make him a bit more comfortable. I asked him whether or not he was any better, the same, or any worse since he was admitted. He stated about the same. I did speak to the nurse, Margaret about the patient. She thought the patient was relatively stable and has not deteriorated. The patient apparently has a history of atrial fibrillation, diabetes, GERD, hyperlipidemia, hypertension, myocardial infar ction, chronic renal insufficiency, mild aortic stenosis, and possible COPD from previous tobacco use. The patient is also had heart catheterization with stent placement, and bypass grafting. White count 10.6, hemoglobin 9.5, hematocrit 31.2, and platelet count 355,000. Sodium 142, potassium 4.1, chlorides 105, CO2 25, anion gap 12, BUN 36, and creatinine 1.15. On admission, his N-terminal pro BNP was 10,800. Chest x-ray in my opinion is consistent with fluid overload/CHF, and interstitial edema. The patient does have bilateral pleural effusions. Review of Systems REVIEW OF SYSTEMS: CONSTITUTIONAL: Fatigue. NEUROLOGIC: [ Negative.] HEENT: [ Negative.] CARDIAC: [Negative.] PULMONARY: Shortness of breath. GI: [Negative.] : [Negative.] RHEUMATOLOGIC: [ Negative.] IMMUNOLOGIC: [ Negative.] ENDOCRINE: [Negative. ] DERMATOLOGIC: [Negative.] Past Medical History Past Medical History: Atrial Fibrillation, Coronary Artery Disease (CAD), COPD, CVA/TIA, Diabetes Mellitus, GERD/Reflux, Hyperlipidemia, Hypertension, Myocardial Infarction (VT), Renal Disease Additional Past Medical History / Comment(s): COPD, CVA multiple one in 1997, carotid artery disease, diabetes mellitus, chronic back pain, tenosynovitis involving the wrists and hands bilaterally, chronic renal failure, mild aortic stenosis with a peak gradient across the aortic valve of 70 mmHg; three heart attacks, last in 2001, colitis, recent discharge (4 days prior to admission) for "colitis attack and low iron" Last Myocardial Infarction Date:: 2001 History of Any Multi-Drug Resistant Organisms: None Reported Past Surgical History: Coronary Bypass/CABG, Heart Catheterization With Stent, Hernia Repair Additional Past Surgical History / Comment(s): March 1998 Cabg TRIPLE vessel by Dr. Ge. Cath with 3 stents. 4th stent 2016 at [facility], COLONOSCOPY last one in August, pneumothorax Past Anesthesia/Blood Transfusion Reactions: No Reported Reaction Date of Last Stent Placement:: March 19982015 Past Psychological History: No Psychological Hx Reported Additional Psychological History / Comment(s): Pt lives with his in their home. He is wheelchair bound. Daughter goes to house 4-5x a day to help. Smoking Status: Former smoker Past Alcohol Use History: None Reported Past Drug Use History: None Reported - Past Family History Father Family Medical History: Cancer Additional Family Medical History / Comment(s): Leukemia Father of leukemia at age 32yrs Mother Family Medical History: COPD Additional Family Medical History / Comment(s): Mother was 76 when she . She had mental illness. Sister(s) Family Medical History: Coronary Artery Disease (CAD), CVA/TIA Brother(s) Family Medical History: Coronary Artery Disease (CAD) Medications and Allergies Home Medications Medication Instructions Recorded Confirmed Type Amiodarone [Cordarone] 200 mg PO DAILY 11/02/21 03/12/22 History Apixaban [Eliquis] 5 mg PO BID 11/02/21 03/12/22 History Escitalopram [Lexapro] 20 mg PO DAILY 11/02/21 03/12/22 History Ascorbic Acid [Vitamin C] 1,000 mg PO DAILY 03/02/22 03/12/22 History Cholecalciferol [Vitamin D3 (125 125 mcg PO DAILY 03/02/22 03/12/22 History Mcg = 5000 Iu)] QUEtiapine [SEROquel] 50 mg PO HS 03/02/22 03/12/22 History Zinc 50 mg PO DAILY 03/02/22 03/12/22 History sitaGLIPtin PHOSPHATE [Januvia] 100 mg PO DAILY 03/02/22 03/12/22 History Acetaminophen Tab [Tylenol] 650 mg PO Q6HR PRN tab 03/08/22 03/12/22 Rx Midodrine [ProAmatine] 5 mg PO AC-TID 30 Days #90 tab 03/08/22 03/12/22 Rx Pantoprazole [Protonix] 40 mg PO AC-BRKFST #30 tab 03/08/22 03/12/22 Rx Sodium Bicarbonate Tab 650 mg PO BID 30 Days #60 tab 03/08/22 03/12/22 Rx Hydrocortisone [Cortef] See Taper PO BID 03/12/22 03/12/22 History Allergies Allergy/AdvReac Type Severity Reaction Status Date / Time codeine Allergy Unknown Verified 03/12/22 12:45 Childhood morphine Allergy Unknown Verified 03/12/22 12:45 Childhood Physical Exam Osteopathic Statement: *. No significant issues noted on an osteopathic structural exam other than those noted in the History and Physical/Consult. Vitals: Vital Signs Temp Pulse Pulse Resp BP BP Pulse Ox 03/17/22 12:07 131 H 23 102/64 94 L 03/17/22 12:06 03/17/22 11:49 122 H 03/17/22 11:40 126 H 03/17/22 09:04 97.7 F 130 H 22 107/62 91 L 03/17/22 09:00 120 H 03/17/22 08:55 121 H 03/17/22 06:46 103/67 03/17/22 04:00 97.5 F L 121 H 15 109/64 92 L 03/17/22 00:00 97.5 F L 123 H 15 110/70 92 L 03/16/22 20:25 98.2 F 124 H 22 103/58 95 03/16/22 20:16 126 H 03/16/22 20:00 126 H 88 L 03/16/22 16:32 126 H 03/16/22 16:21 126 H 03/16/22 16:00 18 96/57 96 FiO2 03/17/22 12:07 40 03/17/22 12:06 40 03/17/22 11:49 03/17/22 11:40 03/17/22 09:04 40 03/17/22 09:00 03/17/22 08:55 35 03/17/22 06:46 03/17/22 04:00 35 03/17/22 00:00 35 03/16/22 20:25 03/16/22 20:16 35 03/16/22 20:00 30 03/16/22 16:32 03/16/22 16:21 03/16/22 16:00 Intake and Output 03/16/22 03/17/22 03/17/22 22:59 06:59 14:59 Intake Total 240 Output Total 700 400 Balance -700 -400 240 Intake: Oral 240 Output: Urine 700 400 Other: Voiding Method Indwelling Catheter Indwelling Catheter No acute distress, oriented 3. Lying on his right side, with a 40% Venturi mask in place. No conversational dyspnea or use of accessory muscles HEENT examination is grossly unremarkable. Neck supple. Full range of motion. No adenopathy thyromegaly or neck vein distention. Cardiovascular examination reveals regular rhythm rate. S1-S2 normal. No S3 or S4. No discernible murmur noted. Heart rate 20 bpm. Heart sounds are distant. Lungs reveal scattered mild to moderate crackles and rhonchi. Breath sounds equal bilaterally. No wheezes. Saturations are 94% on BiPAP. Abdomen soft bowel sounds are heard. No masses or tenderness. Extremities are intact. No cyanosis clubbing or edema. Skin is without rash or lesion. Neurologic examination is brief but nonfocal. Results - Laboratory Findings CBC and BMP: 03/17/22 09:55 03/17/22 09:55 PT/INR, D-dimer PT 13.3 sec (9.0-12.0) H 03/12/22 11:57 INR 1.3 (<1.2) H 03/12/22 11:57 Abnormal lab findings: Abnormal Labs 03/12/22 03/12/22 03/12/22 11:57 11:57 11:57 RBC 3.13 L Hgb 9.9 L Hct 30.5 L MCV MCHC RDW 16.8 H Neutrophils # Lymphocytes # 0.5 L PT 13.3 H INR 1.3 H Sodium 135 L Chloride Carbon Dioxide 19 L BUN 33 H Creatinine 1.44 H Glucose 163 H POC Glucose (mg/dL) Calcium Magnesium 1.5 L Iron TIBC Transferrin Ferritin Total Bilirubin 1.4 H Total Protein 5.5 L Albumin 2.9 L 03/12/22 03/12/22 03/13/22 16:26 21:55 06:13 RBC Hgb Hct MCV MCHC RDW Neutrophils # Lymphocytes # PT INR Sodium Chloride Carbon Dioxide BUN Creatinine Glucose POC Glucose (mg/dL) 119 H 197 H 148 H Calcium Magnesium Iron TIBC Transferrin Ferritin Total Bilirubin Total Protein Albumin 03/13/22 03/13/22 03/13/22 08:44 08:44 11:39 RBC 2.87 L Hgb 9.1 L Hct 27.8 L MCV MCHC RDW 16.8 H Neutrophils # Lymphocytes # 0.8 L PT INR Sodium 135 L Chloride Carbon Dioxide BUN 38 H Creatinine 1.63 H Glucose POC Glucose (mg/dL) 111 H Calcium Magnesium Iron TIBC Transferrin Ferritin Total Bilirubin Total Protein Albumin 03/13/22 03/13/22 03/14/22 16:46 20:19 07:38 RBC 2.89 L Hgb 8.9 L Hct 27.5 L MCV MCHC RDW 16.5 H Neutrophils # Lymphocytes # 0.9 L PT INR Sodium Chloride Carbon Dioxide BUN Creatinine Glucose POC Glucose (mg/dL) 184 H 116 H Calcium Magnesium Iron TIBC Transferrin Ferritin Total Bilirubin Total Protein Albumin 03/14/22 03/14/22 03/14/22 07:38 16:28 20:58 RBC Hgb Hct MCV MCHC RDW Neutrophils # Lymphocytes # PT INR Sodium 134 L Chloride Carbon Dioxide BUN 42 H Creatinine 1.71 H Glucose POC Glucose (mg/dL) 217 H 272 H Calcium 8.3 L Magnesium Iron TIBC Transferrin Ferritin Total Bilirubin Total Protein Albumin 03/15/22 03/15/22 03/15/22 05:56 09:32 09:35 RBC Hgb Hct MCV MCHC RDW Neutrophils # Lymphocytes # PT INR Sodium 133 L Chloride 97 L Carbon Dioxide BUN 41 H Creatinine 1.57 H Glucose 244 H POC Glucose (mg/dL) 161 H Calcium 8.1 L Magnesium Iron 51 L TIBC 158 L Transferrin 113.0 L Ferritin 1214.0 H Total Bilirubin Total Protein Albumin 03/15/22 03/15/22 03/15/22 11:46 17:12 20:10 RBC Hgb Hct MCV MCHC RDW Neutrophils # Lymphocytes # PT INR Sodium Chloride Carbon Dioxide BUN Creatinine Glucose POC Glucose (mg/dL) 213 H 281 H 213 H Calcium Magnesium Iron TIBC Transferrin Ferritin Total Bilirubin Total Protein Albumin 03/16/22 03/16/22 03/16/22 06:02 08:02 11:51 RBC Hgb Hct MCV MCHC RDW Neutrophils # Lymphocytes # PT INR Sodium Chloride Carbon Dioxide BUN 41 H Creatinine 1.26 H Glucose 143 H POC Glucose (mg/dL) 188 H 220 H Calcium Magnesium Iron TIBC Transferrin Ferritin Total Bilirubin Total Protein Albumin 03/16/22 03/16/22 03/17/22 16:39 20:59 06:10 RBC Hgb Hct MCV MCHC RDW Neutrophils # Lymphocytes # PT INR Sodium Chloride Carbon Dioxide BUN Creatinine Glucose POC Glucose (mg/dL) 270 H 214 H 143 H Calcium Magnesium Iron TIBC Transferrin Ferritin Total Bilirubin Total Protein Albumin 03/17/22 03/17/22 09:55 09:55 RBC 3.11 L Hgb 9.5 L Hct 31.2 L MCV 100.3 H D MCHC 30.6 L RDW 16.3 H Neutrophils # 9.1 H Lymphocytes # 0.8 L PT INR Sodium Chloride Carbon Dioxide BUN 36 H Creatinine Glucose POC Glucose (mg/dL) Calcium Magnesium Iron TIBC Transferrin Ferritin Total Bilirubin Total Protein Albumin - Diagnostic Findings Chest x-ray: image reviewed Assessment and Plan Assessment: Shortness of breath, likely related to underlying CHF/pulmonary edema. History of chronic atrial fibrillation/atrial flutter. History of CAD, status post bypass grafting, as well as heart catheterization with stent placement. History of CVA. Diabetes mellitus. History of myocardial infarction. Hypertension. Hyperlipidemia. History of possible COPD, secondary to prior tobacco use. Mild aortic stenosis. Plan: Plan dated 03/17/2022. The patient is placed on BiPAP at 12/5 and 40%. I doubt the patient has an active infection in the lung, but a pro-calcitonin level will be ordered. Corticosteroids are not indicated. Updrafts are fine. We'll DC the Pulmicort. No additional recommendations are made. Prognosis is guarded. Should the patient deteriorate, he may need transfer to the intensive care unit. Time with Patient: Greater than 30
[2022-03-17 17:21] LABS: Glucose,Whole Blood 132 mg/dL (70-110)
[2022-03-17] MEDS: QUEtiapine 50 MG TAB PO SCH (19:57)
[2022-03-17 20:28] LABS: Glucose,Whole Blood 165 mg/dL (70-110)
--- NOTE | 2022-03-17 23:18 | P.PN ---
Subjective Progress Note Date: 03/17/22 This is a 71-year-old male who was recently admitted with CHF acute exacerbation also relative hypotension. Patient becoming more hypoxic requiring Ventimask with pulmonary following and being transitioned to BiPAP. Patient with extensive weakness and recommending continued PT/OT. Chest x-ray for today ordered and pending at this time. Patient is being followed by cardiology and pulmonary has been consulted. Patient is currently afebrile and denies chest pain or palpitations. Patient is tolerating diet with no reports of nausea or vomiting noted. Patient is afebrile. Patient is maintained on IV antibiotics in the form of ceftriaxone and will continue. Also recommend continue with breathing inhalational treatments and patient has been started on IV Solu-Cortef and will continue. Patient continues on midodrine for hypotension. Patient did receive a stat dose of IV Lasix today. Review of systems: Constitutional: No reports of fatigue, fever, or chills Cardiovascular: No reports of chest pain or palpitations Respiratory: reports of worsening shortness of breath reQuiring BiPAP GI: reports of nausea, no reports of of vomiting : No reports of dysuria or retention Neurovascular: reports of generalized weakness All medications have been reviewed Active Medications Albuterol/Ipratropium (Ipratropium-Albuterol 3 Ml Neb) 3 ml INHALATION RT-QID [facility] Last Admin: 03/17/22 11:39 Dose: 3 ml Albuterol/Ipratropium (Ipratropium-Albuterol 3 Ml Neb) 3 ml INHALATION RT-QID PRN PRN Reason: Shortness Of Breath Or Wheezing Amiodarone HCl (Amiodarone 200 Mg Tab) 400 mg PO BID [facility] Last Admin: 03/17/22 09:14 Dose: 400 mg Apixaban (Apixaban 5 Mg Tab) 5 mg PO BID [facility]; Protocol Last Admin: 03/17/22 09:14 Dose: 5 mg Docusate Sodium (Docusate 100 Mg Cap) 100 mg PO DAILY [facility] Last Admin: 03/17/22 09:14 Dose: 100 mg Hydrocortisone Sodium Succinate (Hydrocortisone Succinate 100 Mg/2 Ml Vial) 50 mg IV BID [facility] Last Admin: 03/17/22 09:15 Dose: 50 mg Ceftriaxone Sodium 1 gm/ (Sodium Chloride) 50 mls @ 100 mls/hr IVPB Q24HR [facility]; Protocol Last Admin: 03/17/22 09:14 Dose: 100 mls/hr Insulin Aspart (Insulin Aspart (Novolog) 100 Unit/Ml Vial) 0 unit SQ ACHS [facility]; Protocol Last Admin: 03/17/22 11:59 Dose: Not Given Metoprolol Tartrate (Metoprolol Tartrate 12.5 Mg Tab) 12.5 mg PO TID [facility] Midodrine (Midodrine 5 Mg Tab) 10 mg PO AC-TID [facility] Last Admin: 03/17/22 12:09 Dose: 10 mg Pantoprazole Sodium (Pantoprazole 40 Mg Tablet) 40 mg PO AC-BRKFST [facility] Last Admin: 03/17/22 06:53 Dose: 40 mg Quetiapine Fumarate (Quetiapine 50 Mg Tab) 50 mg PO HS [facility] Last Admin: 03/16/22 21:05 Dose: 50 mg Sodium Bicarbonate (Sodium Bicarbonate Tab 650 Mg Tab) 650 mg PO BID [facility] Last Admin: 03/17/22 09:14 Dose: 650 mg Sodium Chloride (Sodium Chloride 0.9% Flush 10 Ml Syringe) 10 ml IV BID [facility] Last Admin: 03/17/22 09:15 Dose: 10 ml PHYSICAL EXAMINATION: GENERAL: The patient is alert and oriented x4, Well developed, well nourished. HEENT: Pupils are round and equally reacting to light. EOMI. no scleral icterus. No conjunctival pallor. Normocephalic, atraumatic. No pharyngeal erythema. No thyromegaly. CARDIOVASCULAR: S1 and S2 muffled PULMONARY: diminished breath sounds bilaterally with no wheezing and scattered rhonchi noted. ABDOMEN: soft. Nontender on exam. obese. non-distended, normoactive bowel so unds. No palpable organomegaly. MUSCULOSKELETAL: No joint swelling or deformity. EXTREMITIES: No cyanosis, clubbing, or pedal edema. NEUROLOGICAL: Gross neurological examination did not reveal any focal deficits. Diffuse weakness SKIN: No rashes. Assessment: Acute on chronic congestive heart failure with diastolic dysfunction Acute hypoxic respiratory failure secondary to CHF Possible right-sided pneumonia Atrial fibrillation Hypertension, relative History of CVA/TIA History of colitis and kidney injury GI prophylaxis DVT prophylaxis Full code Plan: Recommend to continue with current medications and management of multiple medical consultations following. Pulmonary has been consulted for hypoxia and having worsening shortness of breath and was placed on Ventimask now requiring BiPAP and will be closely monitored. Recommend continue with breathing inhalational treatments and cardiology following as well. Patient continues with hypotension and is continued on midodrine and has been started on Cortef. Patient has been seen and evaluated by PT/OT therapy recommending rehab although patient is refusing. Family at the bedside and questions and concerns were answered. Family also reports to having a cpap machine at home. Recommend repeat labs and chest xray in the am. Due to multiple complex medical issues, prognosis is extremely guarded. The impression and plan of care has been dictated by Mary Oviedo, nurse practitioner as directed. MD Stacey I have performed a history and examination and MDM of this patient, discussed the same with the dictator, and agree with the dictator's assessment and plan as written ,documented as a scribe. Based on total visit time, I have performed more than 50% of the visit. Any additional findings or plans will be noted. Objective - Vital Signs Vital signs: Vital Signs Temp 97.7 F 03/17/22 09:04 Pulse 131 H 03/17/22 12:07 Resp 23 03/17/22 12:07 BP 102/64 03/17/22 12:07 Pulse Ox 94 L 03/17/22 12:07 FiO2 40 03/17/22 12:07 Intake & Output 03/16/22 03/17/22 03/17/22 18:59 06:59 18:59 Intake Total 240 240 Output Total 300 1100 Balance -60 -1100 240 Intake: Oral 240 240 Output: Urine 300 1100 Other: Voiding Method Indwelling Catheter Indwelling Catheter Indwelling Catheter - Labs CBC & Chem 7: 03/17/22 09:55 03/17/22 09:55 Labs: Abnormal Lab Results - Last 24 Hours (Table) 03/16/22 03/16/22 03/17/22 Range/Units 16:39 20:59 06:10 RBC (4.30-5.90) m/uL Hgb (13.0-17.5) gm/dL Hct (39.0-53.0) % MCV (80.0-100.0) fL MCHC (31.0-37.0) g/dL RDW (11.5-15.5) % Neutrophils # (1.3-7.7) k/uL Lymphocytes # (1.0-4.8) k/uL BUN (9-20) mg/dL POC Glucose (mg/dL) 270 H 214 H 143 H (70-110) mg/dL 03/17/22 03/17/22 Range/Units 09:55 09:55 RBC 3.11 L (4.30-5.90) m/uL Hgb 9.5 L (13.0-17.5) gm/dL Hct 31.2 L (39.0-53.0) % MCV 100.3 H D (80.0-100.0) fL MCHC 30.6 L (31.0-37.0) g/dL RDW 16.3 H (11.5-15.5) % Neutrophils # 9.1 H (1.3-7.7) k/uL Lymphocytes # 0.8 L (1.0-4.8) k/uL BUN 36 H (9-20) mg/dL POC Glucose (mg/dL) (70-110) mg/dL Microbiology - Last 24 Hours (Table) 03/16/22 13:00 Gram Stain - Preliminary Sputum Sputum Culture - Preliminary
[2022-03-18 06:09] LABS: Glucose,Whole Blood 74 mg/dL (70-110)
[2022-03-18] MEDS: INSULIN ASPART (NovoLOG) 100 UNIT/ML VIAL SQ SCH ×4 (06:14→23:26)
[2022-03-18] MEDS: PANTOPRAZOLE 40 MG TABLET PO SCH (06:27)
[2022-03-18] MEDS: MIDODRINE 5 MG TAB PO SCH ×3 (06:27→17:24)
[2022-03-18] MEDS: IPRATROPIUM-ALBUTEROL 3 ML NEB INHALATION SCH ×4 (08:14→20:44)
[2022-03-18] MEDS: HYDROCORTISONE SUCCINATE 100 MG/2 ML VIAL IV SCH ×2 (08:51→20:45)
[2022-03-18] MEDS: APIXABAN 5 MG TAB PO SCH ×2 (08:51→20:46)
[2022-03-18] MEDS: SODIUM BICARBONATE TAB 650 MG TAB PO SCH (08:51)
[2022-03-18] MEDS: DOCUSATE 100 MG CAP PO SCH (08:51)
[2022-03-18] MEDS: AMIODARONE 200 MG TAB PO SCH ×2 (08:51→20:45)
[2022-03-18] MEDS: METOPROLOL TARTRATE 12.5 MG TAB PO SCH ×3 (08:51→23:27)
--- NOTE | 2022-03-18 08:51 | P.PN ---
Subjective Patient is seen in follow-up for acute kidney injury. Remains in A. fib. On oral amiodarone and metoprolol. Blood pressure stable. Nonoliguric. Denies chest pain or shortness of breath. Currently on BiPAP. Vital signs are stable. In A. fib. General: Awake. No acute distress. HEENT: Head exam is unremarkable. LUNGS: Breath sounds decreased. HEART: Irregular rate and rhythm. ABDOMEN: Soft, no distention. EXTREMITITES: No edema. Objective - Vital Signs Vital signs: Vital Signs Temp 97.8 F 03/18/22 03:39 Pulse 120 H 03/18/22 08:26 Resp 20 03/18/22 03:39 BP 99/56 03/18/22 03:39 Pulse Ox 100 03/18/22 08:30 FiO2 40 03/18/22 08:30 Intake & Output 03/17/22 03/18/22 03/18/22 18:59 06:59 18:59 Intake Total 240 Output Total 3100 400 Balance -2860 -400 Weight 95 kg 96 kg Intake: Oral 240 Output: Urine 3100 400 Other: Voiding Method Indwelling Catheter Indwelling Catheter - Labs CBC & Chem 7: 03/17/22 09:55 03/17/22 09:55 Labs: Abnormal Lab Results - Last 24 Hours (Table) 03/17/22 03/17/22 03/17/22 Range/Units 09:55 09:55 09:55 RBC 3.11 L (4.30-5.90) m/uL Hgb 9.5 L (13.0-17.5) gm/dL Hct 31.2 L (39.0-53.0) % MCV 100.3 H D (80.0-100.0) fL MCHC 30.6 L (31.0-37.0) g/dL RDW 16.3 H (11.5-15.5) % Neutrophils # 9.1 H (1.3-7.7) k/uL Lymphocytes # 0.8 L (1.0-4.8) k/uL BUN 36 H (9-20) mg/dL POC Glucose (mg/dL) (70-110) mg/dL Procalcitonin 0.51 H (0.02-0.09) ng/mL 03/17/22 03/17/22 Range/Units 17:14 20:26 RBC (4.30-5.90) m/uL Hgb (13.0-17.5) gm/dL Hct (39.0-53.0) % MCV (80.0-100.0) fL MCHC (31.0-37.0) g/dL RDW (11.5-15.5) % Neutrophils # (1.3-7.7) k/uL Lymphocytes # (1.0-4.8) k/uL BUN (9-20) mg/dL POC Glucose (mg/dL) 132 H 165 H (70-110) mg/dL Procalcitonin (0.02-0.09) ng/mL Microbiology - Last 24 Hours (Table) 03/16/22 13:00 Gram Stain - Preliminary Sputum Sputum Culture - Preliminary Assessment and Plan Plan: Assessment: 1. Acute kidney injury secondary to ATN secondary to hypotension. Renal function improving. Creatinine 1.15 yesterday. UA benign from earlier this month. No hydronephrosis noted on CT done 03/02/2022. 2. Chronic kidney disease stage 2/IIIa with baseline creatinine near 1-1.1 secondary to nephrosclerosis. 3. A. fib with RVR. Cardiology following. On oral amiodarone and metoprolol. ?Cardioversion. 4. Anemia of chronic kidney disease. Iron replete. 5. Chronic systolic CHF with ejection fraction of 40-45% with mild mitral and tricuspid regurgitation. 6. Concern for adrenal insufficiency with low cortisol level last admission maintained on Cortef. Plan: Maintain IV hydrocortisone - decreased dose to 50 mg IV twice daily on 03/16/2022. Maintain midodrine. Avoid nephrotoxins. Continue to monitor renal function and urine output. Patient will need to follow-up with endocrinology outpatient for further workup for adrenal insufficiency. Status post IV Lasix yesterday. Add oral Lasix 20 mg twice daily. Stop oral bicarb. Add Aranesp.
[2022-03-18] MEDS: FUROSEMIDE 20 MG TAB PO SCH ×2 (09:01→17:24)
[2022-03-18 10:29] LABS: Anisocytosis Slight; Basophils # (A) 0.1 k/uL (0-0.2); Basophils % (A) 1 %; Eosinophils # (A) 0.4 k/uL (0-0.7); Eosinophils % (A) 3 %; HCT 32.1 % (39.0-53.0); HGB 9.9 gm/dL (13.0-17.5); Hypochromasia Marked; Lymphocytes # (A) 0.7 k/uL (1.0-4.8); Lymphocytes % (A) 7 %; MCH 30.6 pg (25.0-35.0); MCHC 30.8 g/dL (31.0-37.0); MCV 99.3 fL (80.0-100.0); Macrocytosis Slight; Mean Platelet Volume 7.7; Monocytes # (A) 0.3 k/uL (0-1.0); Monocytes % (A) 3 %; Neutrophils # (A) 9.3 k/uL (1.3-7.7); Neutrophils % (A) 86 %; Platelet Count 409 k/uL (150-450); Poikilocytosis Slight; RBC 3.23 m/uL (4.30-5.90); RDW 16.7 % (11.5-15.5); WBC 10.9 k/uL (3.8-10.6)
[2022-03-18 10:42] LABS: Calcium 8.3 mg/dL (8.4-10.2); Potassium 3.4 mmol/L (3.5-5.1)
[2022-03-18 11:44] LABS: Glucose,Whole Blood 136 mg/dL (70-110)
--- NOTE | 2022-03-18 12:22 | P.PN ---
Subjective Progress Note Date: 03/18/22 Principal diagnosis: Shortness of breath. Pulmonary consult dated 03/17/2022. 71-year-old male who presented to the emergency department on March 12, complaining of shortness of breath. The patient had shortness of breath about a day or so prior to admission. The patient complained about being fatigued. There was no chest pain or palpitations. He denied any cough or phlegm production. No leg pain or leg swelling. The patient apparently denied any chest pain or chest discomfort. We were asked to see the patient today, for shortness of breath. Currently, he's on a 40% Venturi mask. His clinical picture is consistent with CHF. His BMP was elevated. He is on saline at KVO. I placed the patient on BiPAP at 12/5 and 40%, to see we can make him a bit more comfortable. I asked him whether or not he was any better, the same, or any worse since he was admitted. He stated about the same. I did speak to the nurse, Margaret about the patient. She thought the patient was relatively stable and has not deteriorated. The patient apparently has a history of atrial f ibrillation, diabetes, GERD, hyperlipidemia, hypertension, myocardial infarction, chronic renal insufficiency, mild aortic stenosis, and possible COPD from previous tobacco use. The patient is also had heart catheterization with stent placement, and bypass grafting. White count 10.6, hemoglobin 9.5, hematocrit 31.2, and platelet count 355,000. Sodium 142, potassium 4.1, chlorides 105, CO2 25, anion gap 12, BUN 36, and creatinine 1.15. On admission, his N-terminal proBNP was 10,800. Chest x-ray in my opinion is consistent with fluid overload/CHF, and interstitial edema. The patient does have bilateral pleural effusions. Progress note dated 03/18/2022. 71-year-old male seen yesterday in consultation. Please see the note above. Today, the patient's feeling better. Yesterday, he was placed on BiPAP, with settings of 12/5 and 40%. Currently, he's using a 40% Venturi mask. I expla ined to the patient, they he could go back on BiPAP anytime he wishes. The BiPAP will be especially useful for his congestive heart failure. White count 10.9, hemoglobin 9.9, hematocrit 32.1, and platelet count 409,000. Sodium 139, potassium 3.4, chlorides 102, CO2 25, anion gap 12, BUN 35, and creatinine 1.30. Calcium is 8.3. Chest x-ray from March 17 is evaluated. Objective - Vital Signs Vital signs: Vital Signs Temp 98.6 F 03/18/22 12:11 Pulse 125 H 03/18/22 12:11 Resp 22 03/18/22 12:11 BP 94/56 03/18/22 12:11 Pulse Ox 96 03/18/22 12:11 FiO2 40 03/18/22 12:11 Intake & Output 03/17/22 03/18/22 03/18/22 18:59 06:59 18:59 Intake Total 240 10 Output Total 3100 400 225 Balance -2860 -400 -215 Weight 95 kg 96 kg Intake: IV 10 Invasive Line 2 10 Oral 240 Output: Urine 3100 400 225 Uretheral (Warner) 225 Other: Voiding Method Indwelling Catheter Indwelling Catheter - Exam No acute distress, oriented 3. Sitting up in bed,, with a 40% Venturi mask in place. No conversational dyspnea or use of accessory muscles HEENT examination is grossly unremarkable. Neck supple. Full range of motion. No adenopathy thyromegaly or neck vein distention. Cardiovascular examination reveals regular rhythm rate. S1-S2 normal. No S3 or S4. No discernible murmur noted. Heart rate 102 bpm. Heart sounds are distant. Lungs reveal scattered mild to moderate crackles and rhonchi. Breath sounds equal bilaterally. No wheezes. Saturations are 96%. Abdomen soft bowel sounds are heard. No masses or tenderness. Extremities are intact. No cyanosis clubbing or edema. Skin is without rash or lesion. Neurologic examination is brief but nonfocal. - Labs CBC & Chem 7: 03/18/22 09:44 03/18/22 09:44 Labs: Abnormal Lab Results - Last 24 Hours (Table) 03/17/22 03/17/22 03/17/22 Range/Units 09:55 17:14 20:26 WBC (3.8-10.6) k/uL RBC (4.30-5.90) m/uL Hgb (13.0-17.5) gm/dL Hct (39.0-53.0) % MCHC (31.0-37.0) g/dL RDW (11.5-15.5) % Neutrophils # (1.3-7.7) k/uL Lymphocytes # (1.0-4.8) k/uL Potassium (3.5-5.1) mmol/L BUN (9-20) mg/dL Creatinine (0.66-1.25) mg/dL Glucose (74-99) mg/dL POC Glucose (mg/dL) 132 H 165 H (70-110) mg/dL Calcium (8.4-10.2) mg/dL Procalcitonin 0.51 H (0.02-0.09) ng/mL 03/18/22 03/18/22 03/18/22 Range/Units 09:44 09:44 11:42 WBC 10.9 H (3.8-10.6) k/uL RBC 3.23 L (4.30-5.90) m/uL Hgb 9.9 L (13.0-17.5) gm/dL Hct 32.1 L (39.0-53.0) % MCHC 30.8 L (31.0-37.0) g/dL RDW 16.7 H (11.5-15.5) % Neutrophils # 9.3 H (1.3-7.7) k/uL Lymphocytes # 0.7 L (1.0-4.8) k/uL Potassium 3.4 L (3.5-5.1) mmol/L BUN 35 H (9-20) mg/dL Creatinine 1.30 H (0.66-1.25) mg/dL Glucose 104 H (74-99) mg/dL POC Glucose (mg/dL) 136 H (70-110) mg/dL Calcium 8.3 L (8.4-10.2) mg/dL Procalcitonin (0.02-0.09) ng/mL Microbiology - Last 24 Hours (Table) 03/16/22 13:00 Gram Stain - Preliminary Sputum Sputum Culture - Preliminary Assessment and Plan Assessment: Shortness of breath, likely related to underlying CHF/pulmonary edema. History of chronic atrial fibrillation/atrial flutter. History of CAD, status post bypass grafting, as well as heart catheterization with stent placement. History of CVA. Diabetes mellitus. History of myocardial infarction. Hypertension. Hyperlipidemia. History of possible COPD, secondary to prior tobacco use. Mild aortic stenosis. Plan: Plan dated 03/17/2022. The patient is placed on BiPAP at 12/5 and 40%. I doubt the patient has an active infection in the lung, but a pro-calcitonin level will be ordered. Corticosteroids are not indicated. Updrafts are fine. We'll DC the Pulmicort. No additional recommendations are made. Prognosis is guarded. Should the patient deteriorate, he may need transfer to the intensive care unit. Plan dated 03/18/2022. The patient is either on a 40% Venturi mask, or BiPAP, at 12/5 and 40%. Clinically, the patient appears to be doing better. He feels better. He is less short of breath. Medications include his usual cardiac medications, and, t he patient is on Rocephin. We will continue to follow and make recommendations where appropriate. Prognosis is guarded. Time with Patient: Less than 30
[2022-03-18] MEDS ORDERED: POTASSIUM CHLORIDE ER 20 MEQ TAB.ER PO STA (13:15)
--- NOTE | 2022-03-18 14:13 | P.PN ---
Subjective Progress Note Date: 03/18/22 HISTORY OF PRESENT ILLNESS: This is a 71-year-old male, patient of Dr. Mcfarland, who was admitted to the hospital secondary to congestive heart failure and atrial fibrillation with RVR. The patient has a history of ischemic cardiomyopathy with previous stenting 3. Echocardiogram completed revealing ejection fraction 40-45%. Patient examined this morning at the bedside. He denies chest pain or pressure. Denies SOB. Denies palpitations. Patient is laying flat in bed and appears control. The patient is hypotensive this morning with a systolic in the 80s. Telemetry reviewed with Dr. Macias which appears to be atrial flutter with a heart rate ranging between [id number]. 03/15/2022 Patient examined this morning at the bedside. Patient denies chest pain or pressure. He denies shortness of breath. He is laying flat in bed and appears comfortable. Patient's blood pressures remain on the lower side with a systolic in the 90s. EKG completed yesterday reveals atrial flutter with uncontrolled ventricular rate. Patients metoprolol was discontinued secondary to hypotension. 03/16/2022 Patient examined this morning at the bedside. Patient denies chest pain or pressure. Denies shortness of breath. Blood pressure this morning 100/56. He remains in atrial fibrillation with heart rates in the 120s. His amiodarone was increased yesterday. 03/17/2022 Patient examined this morning at the bedside. Patient denies chest pain or pressure. He reports mild shortness of breath. He is currently on 40% Ventimask. He received a 1 time dose of IV Lasix this morning per nephrology. Patient remains in atrial flutter with a heart rate around 130. Blood pressure slightly improved today with a reading of 102/64. Chest x-ray this morning revealed diffuse bilateral airspace disease with pleural effusions likely superimposed on a background of COPD. Correlate for diffuse pneumonia versus pulmonary edema. 03/18/2022 Patient examined this morning at the bedside. Patient denies chest pain or pressure. He currently denies shortness of breath. He is on a BiPAP in the ti me of examination. He has been started on oral Lasix per nephrology. He remains in atrial flutter with heart rates in the 120s. PHYSICAL EXAM: VITAL SIGNS: Reviewed. GENERAL: Well-developed in no acute distress. NECK: Supple. No JVD or thyromegaly LUNGS: Respirations even and unlabored. Lungs diminished to auscultation bilaterally. HEART: Tachycardic. Regular rate and rhythm. S1 and S2 heard. EXTREMITIES: Normal range of motion. No clubbing or cyanosis. Peripheral pu lses intact. No lower extremity edema ASSESSMENT: Acute on chronic heart failure with reduced ejection fraction, EF 40-45% Possible pneumonia Acute hypoxic respiratory failure Paroxysmal atrial fibrillation/typical atrial flutter with RVR Hypotension, concern for adrenal insufficiency with low cortisol level last admission, on Cortef outpatient Acute on chronic kidney disease PLAN: Continue current dose of amiodarone Continue current dose of metoprolol Continue telemetry monitoring Diuretics per nephrology Continue to monitor blood pressure Patient's atrial flutter has been hard to manage secondary to hypotension and inability to increase medications. We'll continue to monitor patient over the weekend. If he remains in atrial flutter with RVR on Monday we will consider cardioversion. Further recommendations pending patient course Nurse practitioner note has been reviewed by physician. Signing provider agrees with the documented findings, assessment, and plan of care. Objective - Vital Signs Vital signs: Vital Signs Temp 98.6 F 03/18/22 12:11 Pulse 120 H 03/18/22 13:31 Resp 22 03/18/22 12:11 BP 94/56 03/18/22 12:11 Pulse Ox 91 L 03/18/22 13:31 FiO2 40 03/18/22 12:11 Intake & Output 03/17/22 03/18/22 03/18/22 18:59 06:59 18:59 Intake Total 240 10 Output Total 3100 400 225 Balance -2860 -400 -215 Weight 95 kg 96 kg Intake: IV 10 Invasive Line 2 10 Oral 240 Output: Urine 3100 400 225 Uretheral ([employer]) 225 Other: Voiding Method Indwelling Catheter Indwelling Catheter - Labs CBC & Chem 7: 03/18/22 09:44 03/18/22 09:44 Labs: Abnormal Lab Results - Last 24 Hours (Table) 03/17/22 03/17/22 03/17/22 Range/Units 09:55 17:14 20:26 WBC (3.8-10.6) k/uL RBC (4.30-5.90) m/uL Hgb (13.0-17.5) gm/dL Hct (39.0-53.0) % MCHC (31.0-37.0) g/dL RDW (11.5-15.5) % Neutrophils # (1.3-7.7) k/uL Lymphocytes # (1.0-4.8) k/uL Potassium (3.5-5.1) mmol/L BUN (9-20) mg/dL Creatinine (0.66-1.25) mg/dL Glucose (74-99) mg/dL POC Glucose (mg/dL) 132 H 165 H (70-110) mg/dL Calcium (8.4-10.2) mg/dL Procalcitonin 0.51 H (0.02-0.09) ng/mL 03/18/22 03/18/22 03/18/22 Range/Units 09:44 09:44 11:42 WBC 10.9 H (3.8-10.6) k/uL RBC 3.23 L (4.30-5.90) m/uL Hgb 9.9 L (13.0-17.5) gm/dL Hct 32.1 L (39.0-53.0) % MCHC 30.8 L (31.0-37.0) g/dL RDW 16.7 H (11.5-15.5) % Neutrophils # 9.3 H (1.3-7.7) k/uL Lymphocytes # 0.7 L (1.0-4.8) k/uL Potassium 3.4 L (3.5-5.1) mmol/L BUN 35 H (9-20) mg/dL Creatinine 1.30 H (0.66-1.25) mg/dL Glucose 104 H (74-99) mg/dL POC Glucose (mg/dL) 136 H (70-110) mg/dL Calcium 8.3 L (8.4-10.2) mg/dL Procalcitonin (0.02-0.09) ng/mL Microbiology - Last 24 Hours (Table) 03/16/22 13:00 Gram Stain - Final Sputum Sputum Culture - Final
[2022-03-18 16:56] LABS: Glucose,Whole Blood 158 mg/dL (70-110)
[2022-03-18] MEDS: DARBEPOETIN ALFA 40 MCG/0.4 ML SYRINGE SQ SCH (18:25)
--- NOTE | 2022-03-18 19:44 | P.PN ---
Subjective Progress Note Date: 03/18/22 71-year-old male who was recently admitted with CHF acute exacerbation also relative hypotension. Patient becoming more hypoxic requiring Ventimask with pulmonary following and being transitioned to BiPAP. Patient with extensive weakness and recommending continued PT/OT. Chest x-ray for today ordered and pending at this time. Patient is being followed by cardiology and pulmonary has been consulted. Patient is currently afebrile and denies chest pain or palpitations. Patient is tolerating diet with no reports of nausea or vomiting noted. Patient is afebrile. Patient is maintained on IV antibiotics in the form of ceftriaxone and will continue. Also recommend continue with breathing inhalational treatments and patient has been started on IV Solu-Cortef and will continue. Patient continues on midodrine for hypotension. Patient did receive a stat dose of IV Lasix today. Objective - Vital Signs Vital signs: Vital Signs Temp 98.6 F 03/18/22 12:11 Pulse 120 H 03/18/22 13:31 Resp 22 03/18/22 12:11 BP 94/56 03/18/22 12:11 Pulse Ox 91 L 03/18/22 13:31 FiO2 40 03/18/22 12:11 Intake & Output 03/17/22 03/18/22 03/18/22 18:59 06:59 18:59 Intake Total 240 10 Output Total 3100 400 492 Balance -2860 -400 -482 Weight 95 kg 96 kg Intake: IV 10 Invasive Line 2 10 Oral 240 Output: Urine 3100 400 325 Uretheral ([employer]) 225 Post Void Residual 167 Other: Voiding Method Indwelling Catheter Indwelling Catheter # Voids 1 - Exam GENERAL: The patient is alert and oriented x4, Well developed, well nourished. HEENT: Pupils are round and equally reacting to light. EOMI. no scleral icterus. No conjunctival pallor. Normocephalic, atraumatic. No pharyngeal erythema. No thyromegaly. CARDIOVASCULAR: S1 and S2 muffled PULMONARY: diminished breath sounds bilaterally with no wheezing and scattered rhonchi noted. ABDOMEN: soft. Nontender on exam. obese. non-distended, normoactive bowel sounds. No palpable organomegaly. MUSCULOSKELETAL: No joint swelling or deformity. EXTREMITIES: No cyanosis, clubbing, or pedal edema. NEUROLOGICAL: Gross neurological examination did not reveal any focal deficits. Diffuse weakness SKIN: No rashes. - Labs CBC & Chem 7: 03/18/22 09:44 03/18/22 09:44 Labs: Abnormal Lab Results - Last 24 Hours (Table) 03/17/22 03/17/22 03/17/22 Range/Units 09:55 17:14 20:26 WBC (3.8-10.6) k/uL RBC (4.30-5.90) m/uL Hgb (13.0-17.5) gm/dL Hct (39.0-53.0) % MCHC (31.0-37.0) g/dL RDW (11.5-15.5) % Neutrophils # (1.3-7.7) k/uL Lymphocytes # (1.0-4.8) k/uL Potassium (3.5-5.1) mmol/L BUN (9-20) mg/dL Creatinine (0.66-1.25) mg/dL Glucose (74-99) mg/dL POC Glucose (mg/dL) 132 H 165 H (70-110) mg/dL Calcium (8.4-10.2) mg/dL Procalcitonin 0.51 H (0.02-0.09) ng/mL 03/18/22 03/18/22 03/18/22 Range/Units 09:44 09:44 11:42 WBC 10.9 H (3.8-10.6) k/uL RBC 3.23 L (4.30-5.90) m/uL Hgb 9.9 L (13.0-17.5) gm/dL Hct 32.1 L (39.0-53.0) % MCHC 30.8 L (31.0-37.0) g/dL RDW 16.7 H (11.5-15.5) % Neutrophils # 9.3 H (1.3-7.7) k/uL Lymphocytes # 0.7 L (1.0-4.8) k/uL Potassium 3.4 L (3.5-5.1) mmol/L BUN 35 H (9-20) mg/dL Creatinine 1.30 H (0.66-1.25) mg/dL Glucose 104 H (74-99) mg/dL POC Glucose (mg/dL) 136 H (70-110) mg/dL Calcium 8.3 L (8.4-10.2) mg/dL Procalcitonin (0.02-0.09) ng/mL Microbiology - Last 24 Hours (Table) 03/16/22 13:00 Gram Stain - Final Sputum Sputum Culture - Final Assessment and Plan Assessment: Acute on chronic congestive heart failure with diastolic dysfunction Acute hypoxic respiratory failure secondary to CHF Possible right-sided pneumonia Atrial fibrillation Hypertension, relative History of CVA/TIA History of colitis and kidney injury GI prophylaxis DVT prophylaxis Full code Plan: Recommend to continue with current medications and management of multiple medic al consultations following. Pulmonary has been consulted for hypoxia and having worsening shortness of breath and was placed on Ventimask now requiring BiPAP and will be closely monitored. Recommend continue with breathing inhalational treatments and cardiology following as well. Patient continues with hypotension and is continued on midodrine and has been started on Cortef. Patient has been seen and evaluated by PT/OT therapy recommending rehab although patient is refusing. Family at the bedside and questions and concerns were answered. Family also reports to having a cpap machine at home. Recommend repeat labs and chest xray in the am. Due to multiple complex medical issues, prognosis is extremely guarded.
[2022-03-18] MEDS: QUEtiapine 50 MG TAB PO SCH (20:46)
[2022-03-18 21:07] LABS: Glucose,Whole Blood 95 mg/dL (70-110)
[2022-03-19 06:11] LABS: Glucose,Whole Blood 142 mg/dL (70-110)
--- NOTE | 2022-03-19 07:25 | XR ---
EXAMINATION TYPE: XR chest 1V portable DATE OF EXAM: 03/19/2022 HISTORY: Shortness of breath. COMPARISON: 03/17/2022 TECHNIQUE: Single view of the chest is submitted. FINDINGS: Demonstrated are scattered senescent parenchymal change. Persistent diffuse bilateral right greater than left reticulonodular infiltrates. Overall the appeara nce is stable. The heart is stable. Hilar and mediastinal structures are within normal limits. Degenerative changes are seen of the dorsal spine. IMPRESSION: 1. Persistent diffuse bilateral right greater than left reticulonodular infiltrates. Overall the bonnie earance is stable.
[2022-03-19] MEDS: MIDODRINE 5 MG TAB PO SCH ×3 (07:27→16:29)
[2022-03-19] MEDS: INSULIN ASPART (NovoLOG) 100 UNIT/ML VIAL SQ SCH ×4 (07:27→22:00)
[2022-03-19] MEDS: PANTOPRAZOLE 40 MG TABLET PO SCH (07:27)
[2022-03-19] MEDS: IPRATROPIUM-ALBUTEROL 3 ML NEB INHALATION SCH ×4 (07:30→19:09)
[2022-03-19] MEDS: DOCUSATE 100 MG CAP PO SCH (08:10)
[2022-03-19] MEDS: HYDROCORTISONE SUCCINATE 100 MG/2 ML VIAL IV SCH ×2 (08:10→21:59)
[2022-03-19] MEDS: FUROSEMIDE 20 MG TAB PO SCH (08:10)
[2022-03-19] MEDS: AMIODARONE 200 MG TAB PO SCH ×2 (08:10→21:59)
[2022-03-19] MEDS: APIXABAN 5 MG TAB PO SCH ×2 (08:10→21:59)
[2022-03-19] MEDS: METOPROLOL TARTRATE 12.5 MG TAB PO SCH ×3 (08:11→21:59)
[2022-03-19 08:36] LABS: Magnesium 2.2 mg/dL (1.6-2.3)
[2022-03-19 08:39] LABS: Anisocytosis Slight; Basophils % (A) 0 %; Eosinophils # (A) 0.2 k/uL (0-0.7); Eosinophils % (A) 3 %; HCT 27.6 % (39.0-53.0); HGB 8.8 gm/dL (13.0-17.5); Hypochromasia Marked; Lymphocytes # (A) 0.6 k/uL (1.0-4.8); Lymphocytes % (A) 8 %; MCH 31.1 pg (25.0-35.0); MCHC 31.8 g/dL (31.0-37.0); Macrocytosis Slight; Mean Platelet Volume 7.6; Monocytes # (A) 0.3 k/uL (0-1.0); Monocytes % (A) 4 %; Neutrophils # (A) 6.5 k/uL (1.3-7.7); Neutrophils % (A) 84 %; Platelet Count 266 k/uL (150-450); Poikilocytosis Slight; RBC 2.82 m/uL (4.30-5.90); RDW 16.7 % (11.5-15.5); WBC 7.7 k/uL (3.8-10.6)
--- NOTE | 2022-03-19 10:15 | P.PN ---
Subjective Progress Note Date: 03/19/22 Principal diagnosis: This 71-year-old male seen in consultation because of acute kidney injury. He came in with a creatinine of 1.4 which went up to 1.71 to seem to be from low bl ood pressure A. fib. Currently his on Lasix. Is known with chronic kidney disease stage 2-3 with baseline creatinine of 1.1 secondary to nephrosclerosis, diabetic for number of years. Also known with CHF with ejection fraction of 40-45%. Patient also maintain on Cardura for possible adrenal insufficiency Currently he is on BiPAP denies any chest pain shortness of breath nausea vomiting his appetite is fair no diarrhea. No fever chills no chest pain On examination is He is awake alert oriented 24-hour intake is not documented adequately. Output is 717. Blood pressure 99/64 heart rate going to be 5 temperature 97.7 No JVP noted neck is supple no facial asymmetry Lungs are clear to auscultation fair air entry bilateral Heart sounds unremarkable except for atrial fibrillation Abdomen soft nontender Extremity exam was no edema Neurologically awake alert oriented Lab this morning, sodium 137 potassium 4 chloride 105 bicarb 26 creatinine is 1.3 and BUN is 35 Calcium is 8 Hemoglobin is 8.8. Iron saturation is 32% on 03/15/2022 Impression 1. Acute kidney injury secondary to prerenal and cardiorenal syndrome with ejection fraction somewhat low on the 45% range. Head stable at 1.3 to 2. Anemia of chronic kidney disease iron replete. 3. Low blood pressure with atrial fibrillation and poor ejection fraction 4. On BiPAP. 5. A chest x-ray this morning shows diffuse bilateral right greater than left infiltrate, worse compared to 03/12/2022 blood stable appearance compared to 03/16/2020 Recommendation 1. Will escalate the diuretic dose and see how he responds currently on Lasix 20 twice a day IV, will increase it to 40 IV twice a day 2. Start Aranesp 40 units every week. 3. Check orthostatic changes Objective - Vital Signs Vital signs: Vital Signs Temp 97.7 F 03/19/22 08:00 Pulse 125 H 03/19/22 08:00 Resp 22 03/19/22 08:00 BP 99/64 03/19/22 08:00 Pulse Ox 91 L 03/19/22 08:00 FiO2 40 03/19/22 08:00 Intake & Output 03/18/22 03/19/22 03/19/22 18:59 06:59 18:59 Intake Total 10 50 Output Total 492 225 200 Balance -482 -225 -150 Intake: IV 10 Invasive Line 2 10 Intake, IV Titration 50 Amount cefTRIAXone 1 gm In 50 Sodium Chloride 0.9% 50 ml @ 100 mls/hr IVPB Q24HR [facility] Rx#:[id number] Output: Urine 325 225 200 Uretheral ([employer]) 225 Post Void Residual 167 Other: Voiding Method Indwelling Catheter Indwelling Catheter # Voids 1 1 1 # Bowel Movements 0 - Labs CBC & Chem 7: 03/19/22 07:57 03/19/22 07:57 Labs: Abnormal Lab Results - Last 24 Hours (Table) 03/18/22 03/18/22 03/18/22 Range/Units 09:44 09:44 11:42 WBC 10.9 H (3.8-10.6) k/uL RBC 3.23 L (4.30-5.90) m/uL Hgb 9.9 L (13.0-17.5) gm/dL Hct 32.1 L (39.0-53.0) % MCHC 30.8 L (31.0-37.0) g/dL RDW 16.7 H (11.5-15.5) % Neutrophils # 9.3 H (1.3-7.7) k/uL Lymphocytes # 0.7 L (1.0-4.8) k/uL Potassium 3.4 L (3.5-5.1) mmol/L BUN 35 H (9-20) mg/dL Creatinine 1.30 H (0.66-1.25) mg/dL Glucose 104 H (74-99) mg/dL POC Glucose (mg/dL) 136 H (70-110) mg/dL Calcium 8.3 L (8.4-10.2) mg/dL 03/18/22 03/19/22 03/19/22 Range/Units 16:56 05:59 07:57 WBC (3.8-10.6) k/uL RBC (4.30-5.90) m/uL Hgb (13.0-17.5) gm/dL Hct (39.0-53.0) % MCHC (31.0-37.0) g/dL RDW (11.5-15.5) % Neutrophils # (1.3-7.7) k/uL Lymphocytes # (1.0-4.8) k/uL Potassium (3.5-5.1) mmol/L BUN 35 H (9-20) mg/dL Creatinine 1.32 H (0.66-1.25) mg/dL Glucose 119 H (74-99) mg/dL POC Glucose (mg/dL) 158 H 142 H (70-110) mg/dL Calcium 8.0 L (8.4-10.2) mg/dL 03/19/22 Range/Units 07:57 WBC (3.8-10.6) k/uL RBC 2.82 L (4.30-5.90) m/uL Hgb 8.8 L (13.0-17.5) gm/dL Hct 27.6 L (39.0-53.0) % MCHC (31.0-37.0) g/dL RDW 16.7 H (11.5-15.5) % Neutrophils # (1.3-7.7) k/uL Lymphocytes # 0.6 L (1.0-4.8) k/uL Potassium (3.5-5.1) mmol/L BUN (9-20) mg/dL Creatinine (0.66-1.25) mg/dL Glucose (74-99) mg/dL POC Glucose (mg/dL) (70-110) mg/dL Calcium (8.4-10.2) mg/dL Microbiology - Last 24 Hours (Table) 03/16/22 13:00 Gram Stain - Final Sputum Sputum Culture - Final
[2022-03-19] MEDS: FUROSEMIDE 10 MG/ML 4 ML VIAL IV SCH ×2 (11:37→21:59)
[2022-03-19 11:49] LABS: Glucose,Whole Blood 106 mg/dL (70-110)
--- NOTE | 2022-03-19 13:17 | P.PN ---
Subjective Progress Note Date: 03/19/22 71-year-old male who presented to the emergency department on March 12, complaining of shortness of breath. The patient had shortness of breath about a day or so prior to admission. The patient complained about being fatigued. There was no chest pain or palpitations. He denied any cough or phlegm produ ction. No leg pain or leg swelling. The patient apparently denied any chest pain or chest discomfort. We were asked to see the patient today, for shortness of breath. Currently, he's on a 40% Venturi mask. His clinical picture is consistent with CHF. His BMP was elevated. He is on saline at KVO. I placed the patient on BiPAP at 12/5 and 40%, to see we can make him a bit more comfortable. I asked him whether or not he was any better, the same, or any worse since he was admitted. He stated about the same. I did speak to the nurse, Margaret about the patient. She thought the patient was relatively stable and has not deteriorated. The patient apparently has a history of atrial fibrillation, diabetes, GERD, hyperlipidemia, hypertension, myocardial infarction, chronic renal insufficiency, mild aortic stenosis, and possible COPD from previous tobacco use. The patient is also had heart catheterization with stent placement, and bypass grafting. White count 10.6, hemoglobin 9.5, hem atocrit 31.2, and platelet count 355,000. Sodium 142, potassium 4.1, chlorides 105, CO2 25, anion gap 12, BUN 36, and creatinine 1.15. On admission, his N- terminal proBNP was 10,800. Chest x-ray in my opinion is consistent with fluid overload/CHF, and interstitial edema. The patient does have bilateral pleural effusions. Progress note dated 03/18/2022. 71-year-old male seen yesterday in consultation. Please see the note above. Today, the patient's feeling better. Yesterday, he was placed on BiPAP, with settings of 12/5 and 40%. Currently, he's using a 40% Venturi mask. I explained to the patient, they he could go back on BiPAP anytime he wishes. The BiPAP will be especially useful for his congestive heart failure. White count 10.9, hemoglobin 9.9, hematocrit 32.1, and platelet count 409,000. Sodium 139, potassium 3.4, chlorides 102, CO2 25, anion gap 12, BUN 35, and creatinine 1.30. Calcium is 8.3. Chest x-ray from March 17 is evaluated. The patient is seen today 03/19/2022 in follow-up on the selective care unit. He is currently resting comfortably in bed. Awake and alert in no acute distress. He is maintained on BiPAP 12/5 and 40% FiO2. Follow up chest x-ray reveals persistent diffuse bilateral right greater than left reticular nodular infiltrates. Overall appearance is stable. Sputum culture revealed no growth. White count 7.7. Hemoglobin 8.8. Platelets 266. Sodium 137. Potassium 4.0. BUN 35. Creatinine 1.32. Glucose 119. He is continued on DuoNeb inhalations, Solu-Cortef, IV diuretics. Anticoagulated with Eliquis. Antibiotics in the fo rm of ceftriaxone. He is currently in a -3.2 L balance. Objective - Vital Signs Vital signs: Vital Signs Temp 97.7 F 03/19/22 11:42 Pulse 121 H 03/19/22 12:06 Resp 22 03/19/22 11:42 BP 104/63 03/19/22 11:42 Pulse Ox 95 03/19/22 11:42 FiO2 40 03/19/22 11:55 Intake & Output 03/18/22 03/19/22 03/19/22 18:59 06:59 18:59 Intake Total 10 50 Output Total 492 225 200 Balance -482 -225 -150 Intake: IV 10 Invasive Line 2 10 Intake, IV Titration 50 Amount cefTRIAXone 1 gm In 50 Sodium Chloride 0.9% 50 ml @ 100 mls/hr IVPB Q24HR [facility] Rx#:[id number] Output: Urine 325 225 200 Uretheral (Warner) 225 Post Void Residual 167 Other: Voiding Method Indwelling Catheter Indwelling Catheter # Voids 1 1 1 # Bowel Movements 0 - Exam GENERAL EXAM: Alert, less than 71-year-old male patient, on BiPAP 12/5 and 40% FiO2, comfortable in no apparent distress. HEAD: Normocephalic. EYES: Normal reaction of pupils, equal size. NOSE: Clear with pink turbinates. THROAT: No erythema or exudates. NECK: No masses, no JVD. CHEST: No chest wall deformity. LUNGS: Equal air entry with bilateral scattered rhonchi, crackles in the bases. CVS: S1 and S2 normal with no audible murmur, regular rhythm. ABDOMEN: No hepatosplenomegaly, normal bowel sounds, no guarding or rigidity. SPINE: No scoliosis or deformity SKIN: No rashes CENTRAL NERVOUS SYSTEM: No focal deficits, tone is normal in all 4 extremities. EXTREMITIES: There is no peripheral edema. No clubbing, no cyanosis. Pe ripheral pulses are intact. - Labs CBC & Chem 7: 03/19/22 07:57 03/19/22 07:57 Labs: Abnormal Lab Results - Last 24 Hours (Table) 03/18/22 03/19/22 03/19/22 Range/Units 16:56 05:59 07:57 RBC (4.30-5.90) m/uL Hgb (13.0-17.5) gm/dL Hct (39.0-53.0) % RDW (11.5-15.5) % Lymphocytes # (1.0-4.8) k/uL BUN 35 H (9-20) mg/dL Creatinine 1.32 H (0.66-1.25) mg/dL Glucose 119 H (74-99) mg/dL POC Glucose (mg/dL) 158 H 142 H (70-110) mg/dL Calcium 8.0 L (8.4-10.2) mg/dL 03/19/22 Range/Units 07:57 RBC 2.82 L (4.30-5.90) m/uL Hgb 8.8 L (13.0-17.5) gm/dL Hct 27.6 L (39.0-53.0) % RDW 16.7 H (11.5-15.5) % Lymphocytes # 0.6 L (1.0-4.8) k/uL BUN (9-20) mg/dL Creatinine (0.66-1.25) mg/dL Glucose (74-99) mg/dL POC Glucose (mg/dL) (70-110) mg/dL Calcium (8.4-10.2) mg/dL Microbiology - Last 24 Hours (Table) 03/16/22 13:00 Gram Stain - Final Sputum Sputum Culture - Final Assessment and Plan Assessment: Shortness of breath, likely related to underlying CHF/pulmonary edema. History of chronic atrial fibrillation/atrial flutter. History of CAD, status post bypass grafting, as well as heart catheterization with stent placement. History of CVA. Diabetes mellitus. History of myocardial infarction. Hypertension. Hyperlipidemia. History of possible COPD, secondary to prior tobacco use. Mild aortic stenosis. Plan: The patient was seen and evaluated Chest x-ray, labs and medications reviewed Feeling slightly better today compared to yesterday Continued on BiPAP, alternating with nasal cannula We will continue to follow I have personally seen and examined the patient, performed the documentation and the assessment and plan as written. Number of minutes spent on the visit: 10.
--- NOTE | 2022-03-19 16:02 | P.PN ---
Subjective Progress Note Date: 03/19/22 This is a 71-year-old male, patient of Dr. Mcfarland, who was admitted to the hospital secondary to congestive heart failure and atrial fibrillation with RVR. The patient has a history of ischemic cardiomyopathy with previous stenting 3. Echocardiogram completed revealing ejection fraction 40-45%. Patient examined this morning at the bedside. He denies chest pain or pressure. Denies SOB. Den ies palpitations. Patient is laying flat in bed and appears control. The patient is hypotensive this morning with a systolic in the 80s. Telemetry reviewed with Dr. Macias which appears to be atrial flutter with a heart rate ranging between [id number]. 03/19/2022: This patient heart rate is in the range of 100-120. Patient is in atrial flutter. He is on amiodarone 400 mg by mouth twice a day along with metoprolol. Seemed to be reasonably stable. Following cardioversion on Monday, he patient remains in atrial fib flutter with uncontrolled rate Objective - Vital Signs Vital signs: Vital Signs Temp 97.7 F 03/19/22 11:42 Pulse 120 H 03/19/22 15:22 Resp 22 03/19/22 13:50 BP 104/63 03/19/22 11:42 Pulse Ox 85 L 03/19/22 15:06 FiO2 32 03/19/22 15:06 Intake & Output 03/18/22 03/19/22 03/19/22 18:59 06:59 18:59 Intake Total 10 50 Output Total 492 225 550 Balance -482 225 -500 Intake: IV 10 Invasive Line 2 10 Intake, IV Titration 50 Amount cefTRIAXone 1 gm In 50 Sodium Chloride 0.9% 50 ml @ 100 mls/hr IVPB Q24HR [facility] Rx#:[id number] Output: Urine 325 225 550 Uretheral (Warner) 225 Post Void Residual 167 Other: Voiding Method Indwelling Catheter Indwelling Catheter # Voids 1 1 1 # Bowel Movements 0 1 - Exam GENERAL EXAM: Patient is alert and appears to be frail HEENT: Normocephalic. Normal reaction of pupils, equal size, normal range of extraocular motion. No erythema or exudates in the throat. NECK: No masses, no nuchal rigidity. CHEST: No chest wall deformity. LUNGS: Diminished air entry HEART: S1 and S2 normal . Irregular heart sounds ABDOMEN: No hepatosplenomegaly, normal bowel sounds, no guarding or rigidity. SKIN: No rashes CENTRAL NERVOUS SYSTEM: No focal deficits. EXTREMITIES: No cyanosis, clubbing or edema. - Labs CBC & Chem 7: 03/19/22 07:57 03/19/22 07:57 Labs: Abnormal Lab Results - Last 24 Hours (Table) 03/18/22 03/19/22 03/19/22 Range/Units 16:56 05:59 07:57 RBC (4.30-5.90) m/uL Hgb (13.0-17.5) gm/dL Hct (39.0-53.0) % RDW (11.5-15.5) % Lymphocytes # (1.0-4.8) k/uL BUN 35 H (9-20) mg/dL Creatinine 1.32 H (0.66-1.25) mg/dL Glucose 119 H (74-99) mg/dL POC Glucose (mg/dL) 158 H 142 H (70-110) mg/dL Calcium 8.0 L (8.4-10.2) mg/dL 03/19/22 Range/Units 07:57 RBC 2.82 L (4.30-5.90) m/uL Hgb 8.8 L (13.0-17.5) gm/dL Hct 27.6 L (39.0-53.0) % RDW 16.7 H (11.5-15.5) % Lymphocytes # 0.6 L (1.0-4.8) k/uL BUN (9-20) mg/dL Creatinine (0.66-1.25) mg/dL Glucose (74-99) mg/dL POC Glucose (mg/dL) (70-110) mg/dL Calcium (8.4-10.2) mg/dL Microbiology - Last 24 Hours (Table) 03/16/22 13:00 Gram Stain - Final Sputum Sputum Culture - Final Assessment and Plan (1) Atrial flutter with rapid ventricular response Current Visit: Yes Status: Acute Code(s): I48.92 - UNSPECIFIED ATRIAL FLUTTER SNOMED Code(s): 6264628 (2) Acute exacerbation of chronic obstructive airways disease Current Visit: No Status: Acute Code(s): J44.1 - CHRONIC OBSTRUCTIVE PULMONARY DISEASE W (ACUTE) EXACERBATION SNOMED Code(s): 305627876 Plan: Continue current medical therapy. Possible cardioversion on Monday if the atrial flutter persisted with rapid ventricular response
[2022-03-19 16:30] LABS: Glucose,Whole Blood 222 mg/dL (70-110)
--- NOTE | 2022-03-19 21:39 | P.PN ---
Subjective Progress Note Date: 03/19/22 Principal diagnosis: Acute on chronic congestive heart failure with diastolic dysfunction Acute hypoxic respiratory failure secondary to CHF Possible right-sided pneumonia 71-year-old male who was recently admitted with CHF acute exacerbation also relative hypotension. Patient becoming more hypoxic requiring Ventimask with pulmonary following and being transitioned to BiPAP. Patient with extensive weakness and recommending continued PT/OT. Chest x-ray for today ordered and pending at this time. Patient is being followed by cardiology and pulmonary has been consulted. Patient is currently afebrile and denies chest pain or palpitations. Patient is tolerating diet with no reports of nausea or vomiting noted. Patient is afebrile. Patient is maintained on IV antibiotics in the form of ceftriaxone and will continue. Also recommend continue with breathing inhalational treatments and patient has been started on IV Solu-Cortef and will continue. Patient continues on midodrine for hypotension. Patient did receive a stat dose of IV Lasix today. 03/19/2022 Patient is seen and evaluated in follow-up on the selective care unit. He is currently resting comfortably in bed. Awake and alert in no acute distress. Patient is maintained on BiPAP 12/5 and 40% FiO2. Chest x-ray reveals persistent diffuse bilateral right greater than left reticular nodular infiltrates. Overall appearance is stable. Sputum culture revealed no growth. White count 7.7. Hemoglobin 8.8. Platelets 266. Sodium 137. Potassium 4.0. BUN 35. Creatinine 1.32. Glucose 119. He is continued on DuoNeb inhalations, Solu-Cortef, IV diuretics. Anticoagulated with Eliquis. Antibiotics in the form of ceftriaxone. Objective - Vital Signs Vital signs: Vital Signs Temp 97.7 F 03/19/22 11:42 Pulse 120 H 03/19/22 15:22 Resp 22 03/19/22 13:50 BP 104/63 03/19/22 11:42 Pulse Ox 85 L 03/19/22 15:06 FiO2 32 03/19/22 15:06 Intake & Output 03/18/22 03/19/22 03/19/22 18:59 06:59 18:59 Intake Total 10 50 Output Total 492 225 550 Balance -163 -070 -217 Intake: IV 10 Invasive Line 2 10 Intake, IV Titration 50 Amount cefTRIAXone 1 gm In 50 Sodium Chloride 0.9% 50 ml @ 100 mls/hr IVPB Q24HR [facility] Rx#:[id number] Output: Urine 325 225 550 Uretheral (Warner) 225 Post Void Residual 167 Other: Voiding Method Indwelling Catheter Indwelling Catheter # Voids 1 1 1 # Bowel Movements 0 1 - Exam GENERAL: The patient is alert and oriented x4, Well developed, well nourished. HEENT: Pupils are round and equally reacting to light. EOMI. no scleral icterus. No conjunctival pallor. Normocephalic, atraumatic. No pharyngeal erythema. No thyromegaly. CARDIOVASCULAR: S1 and S2 muffled PULMONARY: diminished breath sounds bilaterally with no wheezing and scattered rhonchi noted. ABDOMEN: soft. Nontender on exam. obese. non-distended, normoactive bowel sounds. No palpable organomegaly. MUSCULOSKELETAL: No joint swelling or deformity. EXTREMITIES: No cyanosis, clubbing, or pedal edema. NEUROLOGICAL: Gross neurological examination did not reveal any focal deficits. Diffuse weakness SKIN: No rashes. - Labs CBC & Chem 7: 03/19/22 07:57 03/19/22 07:57 Labs: Abnormal Lab Results - Last 24 Hours (Table) 03/18/22 03/19/22 03/19/22 Range/Units 16:56 05:59 07:57 RBC (4.30-5.90) m/uL Hgb (13.0-17.5) gm/dL Hct (39.0-53.0) % RDW (11.5-15.5) % Lymphocytes # (1.0-4.8) k/uL BUN 35 H (9-20) mg/dL Creatinine 1.32 H (0.66-1.25) mg/dL Glucose 119 H (74-99) mg/dL POC Glucose (mg/dL) 158 H 142 H (70-110) mg/dL Calcium 8.0 L (8.4-10.2) mg/dL 03/19/22 Range/Units 07:57 RBC 2.82 L (4.30-5.90) m/uL Hgb 8.8 L (13.0-17.5) gm/dL Hct 27.6 L (39.0-53.0) % RDW 16.7 H (11.5-15.5) % Lymphocytes # 0.6 L (1.0-4.8) k/uL BUN (9-20) mg/dL Creatinine (0.66-1.25) mg/dL Glucose (74-99) mg/dL POC Glucose (mg/dL) (70-110) mg/dL Calcium (8.4-10.2) mg/dL Microbiology - Last 24 Hours (Table) 03/16/22 13:00 Gram Stain - Final Sputum Sputum Culture - Final Assessment and Plan Assessment: Acute on chronic congestive heart failure with diastolic dysfunction Acute hypoxic respiratory failure secondary to CHF Possible right-sided pneumonia Atrial fibrillation Hypertension, relative History of CVA/TIA History of colitis and kidney injury GI prophylaxis DVT prophylaxis Full code Plan: Recommend to continue with current medications and management of multiple medical consultations following. Pulmonary has been consulted for hypoxia and having worsening shortness of breath and was placed on Ventimask now requiring BiPAP and will be closely monitored. Recommend continue with breathing inhalational treatments and cardiology following as well. Patient continues with hypotension and is continued on midodrine and has been started on Cortef. Patient has been seen and evaluated by PT/OT therapy recommending rehab although patient is refusing. Family at the bedside and questions and concerns were answered. Family also reports to having a cpap machine at home. Recommend repeat labs and chest xray in the am. Due to multiple complex medical issues, prognosis is extremely guarded.
[2022-03-19 21:45] LABS: Glucose,Whole Blood 193 mg/dL (70-110)
[2022-03-19] MEDS: QUEtiapine 50 MG TAB PO SCH (21:59)
[2022-03-20] MEDS: INSULIN ASPART (NovoLOG) 100 UNIT/ML VIAL SQ SCH ×4 (06:40→19:58)
[2022-03-20] MEDS: MIDODRINE 5 MG TAB PO SCH ×3 (06:40→16:16)
[2022-03-20] MEDS: PANTOPRAZOLE 40 MG TABLET PO SCH (06:41)
[2022-03-20 06:58] LABS: Glucose,Whole Blood 196 mg/dL (70-110)
[2022-03-20] MEDS: IPRATROPIUM-ALBUTEROL 3 ML NEB INHALATION SCH ×4 (07:23→20:08)
[2022-03-20] MEDS: DOCUSATE 100 MG CAP PO SCH (09:33)
[2022-03-20] MEDS: AMIODARONE 200 MG TAB PO SCH ×2 (09:33→19:57)
[2022-03-20] MEDS: METOPROLOL TARTRATE 12.5 MG TAB PO SCH ×3 (09:33→22:05)
[2022-03-20] MEDS: FUROSEMIDE 10 MG/ML 4 ML VIAL IV SCH ×2 (09:33→19:58)
[2022-03-20] MEDS: APIXABAN 5 MG TAB PO SCH ×2 (09:33→19:57)
[2022-03-20] MEDS: HYDROCORTISONE SUCCINATE 100 MG/2 ML VIAL IV SCH ×2 (09:33→19:58)
--- NOTE | 2022-03-20 09:34 | P.PN ---
Subjective Progress Note Date: 03/20/22 This is a 71-year-old male, patient of Dr. Mcfarland, who was admitted to the hospital secondary to congestive heart failure and atrial fibrillation with RVR. The patient has a history of ischemic cardiomyopathy with previous stenting 3. Echocardiogram completed revealing ejection fraction 40-45%. Patient examined this morning at the bedside. He denies chest pain or pressure. Denies SOB. Den ies palpitations. Patient is laying flat in bed and appears control. The patient is hypotensive this morning with a systolic in the 80s. Telemetry reviewed with Dr. Macias which appears to be atrial flutter with a heart rate ranging between [id number]. 03/19/2022: This patient heart rate is in the range of 100-120. Patient is in atrial flutter. He is on amiodarone 400 mg by mouth twice a day along with metoprolol. Seemed to be reasonably stable. Following cardioversion on Monday, he patient remains in atrial fib flutter with uncontrolled rate. 03/20/2022:. Patient continues to be in atrial flutter with rapid ventricular rate. Possible NU cardioversion tomorrow. Keep patient nothing by mouth, continue rest of the medical treatment Objective - Vital Signs Vital signs: Vital Signs Temp 97.7 F 03/20/22 04:00 Pulse 124 H 03/20/22 07:35 Resp 19 03/20/22 08:00 BP 94/61 03/20/22 04:00 Pulse Ox 96 03/20/22 00:00 FiO2 40 03/20/22 07:23 Intake & Output 03/19/22 03/20/22 03/20/22 18:59 06:59 18:59 Intake Total 50 Output Total 550 1300 Balance -500 -1300 Intake: Intake, IV Titration 50 Amount cefTRIAXone 1 gm In 50 Sodium Chloride 0.9% 50 ml @ 100 mls/hr IVPB Q24HR [facility] Rx#:[id number] Output: Urine 550 1300 Other: Voiding Method Indwelling Catheter Indwelling Catheter Indwelling Catheter # Voids 1 3 # Bowel Movements 1 - Exam GENERAL EXAM: Patient is alert and appears to be frail HEENT: Normocephalic. Normal reaction of pupils, equal size, normal range of extraocular motion. No erythema or exudates in the throat. NECK: No masses, no nuchal rigidity. CHEST: No chest wall deformity. LUNGS: Diminished air entry HEART: S1 and S2 normal . Irregular heart sounds ABDOMEN: No hepatosplenomegaly, normal bowel sounds, no guarding or rigidity. SKIN: No rashes CENTRAL NERVOUS SYSTEM: No focal deficits. EXTREMITIES: No cyanosis, clubbing or edema. - Labs CBC & Chem 7: 03/19/22 07:57 03/19/22 07:57 Labs: Abnormal Lab Results - Last 24 Hours (Table) 03/19/22 03/19/22 03/20/22 Range/Units 16:28 21:39 06:32 POC Glucose (mg/dL) 222 H 193 H 196 H (70-110) mg/dL Assessment and Plan (1) Atrial flutter with rapid ventricular response Current Visit: Yes Status: Acute Code(s): I48.92 - UNSPECIFIED ATRIAL FLUTTER SNOMED Code(s): 5813578 (2) Acute exacerbation of chronic obstructive airways disease Current Visit: No Status: Acute Code(s): J44.1 - CHRONIC OBSTRUCTIVE PULMONARY DISEASE W (ACUTE) EXACERBATION SNOMED Code(s): 240440614 Plan: Patient is still tachycardic. Possible NU cardioversion tomorrow
--- NOTE | 2022-03-20 10:39 | P.PN ---
Subjective Progress Note Date: 03/20/22 Principal diagnosis: This 71-year-old male seen in consultation because of acute kidney injury. He came in with a creatinine of 1.4 which went up to 1.71 to seem to be from low bl ood pressure, from combination of possible adrenal insufficiency and A. fib. Currently he is on Lasix. His Lasix yesterday with increased from 20 mg twice a day 2 -40 mg twice a day. He reports more urine output although the documentation of 9 and 50 mL. He remains on the oxygen and slightly short of breath. He denies any postural dizziness. An orthostatic blood pressure has been ordered yesterday and as well as today. I don't know the results of yesterday's orthostatic changes. Is known with chronic kidney disease stage 2-3 with baseline creatinine of 1.1 secondary to nephrosclerosis, diabetic for number of years. Also known with CHF with ejection fraction of 40-45%. Patient also maintain on hydrocortisone for possible adrenal insufficiency On examination He is awake alert oriented 24-hour intake is not documented output is 9 50 mL Blood pressure 92/62 heart rate 125 temperature 97.9 No JVP noted neck is supple no facial asymmetry Lungs are clear to auscultation fair air entry bilateral Heart sounds unremarkable except for atrial fibrillation Abdomen soft nontender Extremity exam was no edema Neurologically awake alert oriented Lab this morning, sodium 137 potassium 4 chloride 105 bicarb 26 creatinine is 1.3 and BUN is 35 Calcium is 8 Hemoglobin is 8.8. Iron saturation is 32% on 03/15/2022 Impression 1. Acute kidney injury secondary to prerenal and cardiorenal syndrome with ejection fraction somewhat low on the 45% range. Head stable at 1.3 to 2. Anemia of chronic kidney disease iron replete. Hemoglobin is 8.8 on 03/19/2020 3. Low blood pressure with atrial fibrillation and poor ejection fraction 4. On BiPAP. 5. A chest x-ray this morning shows diffuse bilateral right greater than left infiltrate, worse compared to 03/12/2022 blood stable appearance compared to 03/16/2020 Recommendation 1. Cont 40 IV twice a day 2. Cont Aranesp 40 units every week. 3. Check orthostatic changes Objective - Vital Signs Vital signs: Vital Signs Temp 97.9 F 03/20/22 09:43 Pulse 125 H 03/20/22 09:43 Resp 22 03/20/22 09:43 BP 92/62 03/20/22 09:43 Pulse Ox 90 L 03/20/22 09:43 FiO2 40 03/20/22 09:43 Intake & Output 03/19/22 03/20/22 03/20/22 18:59 06:59 18:59 Intake Total 50 Output Total 550 1300 Balance -500 -1300 Intake: Intake, IV Titration 50 Amount cefTRIAXone 1 gm In 50 Sodium Chloride 0.9% 50 ml @ 100 mls/hr IVPB Q24HR [facility] Rx#:[id number] Output: Urine 550 1300 Other: Voiding Method Indwelling Catheter Indwelling Catheter Indwelling Catheter # Voids 1 3 # Bowel Movements 1 - Labs CBC & Chem 7: 03/19/22 07:57 03/19/22 07:57 Labs: Abnormal Lab Results - Last 24 Hours (Table) 03/19/22 03/19/22 03/20/22 Range/Units 16:28 21:39 06:32 POC Glucose (mg/dL) 222 H 193 H 196 H (70-110) mg/dL
[2022-03-20] MEDS: SODIUM CHLORIDE 0.9% 1,000 ML IV SCH (11:22)
[2022-03-20 11:49] LABS: Glucose,Whole Blood 151 mg/dL (70-110)
--- NOTE | 2022-03-20 11:59 | P.PN ---
Subjective Progress Note Date: 03/20/22 Principal diagnosis: Shortness of breath. Pulmonary consult dated 03/17/2022. 71-year-old male who presented to the emergency department on March 12, complaining of shortness of breath. The patient had shortness of breath about a day or so prior to admission. The patient complained about being fatigued. There was no chest pain or palpitations. He denied any cough or phlegm production. No leg pain or leg swelling. The patient apparently denied any chest pain or chest discomfort. We were asked to see the patient today, for shortness of breath. Currently, he's on a 40% Venturi mask. His clinical picture is consistent with CHF. His BMP was elevated. He is on saline at KVO. I placed the patient on BiPAP at 12/5 and 40%, to see we can make him a bit more comfortable. I asked him whether or not he was any better, the same, or any worse since he was admitted. He stated about the same. I did speak to the nurse, Margaret about the patient. She thought the patient was relatively stable and has not deteriorated. The patient apparently has a history of atrial f ibrillation, diabetes, GERD, hyperlipidemia, hypertension, myocardial infarction, chronic renal insufficiency, mild aortic stenosis, and possible COPD from previous tobacco use. The patient is also had heart catheterization with stent placement, and bypass grafting. White count 10.6, hemoglobin 9.5, hematocrit 31.2, and platelet count 355,000. Sodium 142, potassium 4.1, chlorides 105, CO2 25, anion gap 12, BUN 36, and creatinine 1.15. On admission, his N-terminal proBNP was 10,800. Chest x-ray in my opinion is consistent with fluid overload/CHF, and interstitial edema. The patient does have bilateral pleural effusions. Progress note dated 03/18/2022. 71-year-old male seen yesterday in consultation. Please see the note above. Today, the patient's feeling better. Yesterday, he was placed on BiPAP, with settings of 12/5 and 40%. Currently, he's using a 40% Venturi mask. I expla ined to the patient, they he could go back on BiPAP anytime he wishes. The BiPAP will be especially useful for his congestive heart failure. White count 10.9, hemoglobin 9.9, hematocrit 32.1, and platelet count 409,000. Sodium 139, potassium 3.4, chlorides 102, CO2 25, anion gap 12, BUN 35, and creatinine 1.30. Calcium is 8.3. Chest x-ray from March 17 is evaluated. Progress note dated 03/20/2022. 71-year-old male seen in consultation on the . The patient was admitted with a diagnosis of CHF. Because of worsening respiratory distress, we placed him on BiPAP, with settings of 12/5 and 40%. When not using BiPAP, the patient could use a 40% Venturi mask, or nasal cannula. Clinically, the patient's feeling much better. He has been receiving Lasix. No new labs today other than a glucose of 151. Chest x-ray from March 19, was reviewed already. Objective - Vital Signs Vital signs: Vital Signs Temp 97.9 F 03/20/22 09:43 Pulse 122 H 03/20/22 11:05 Resp 22 03/20/22 09:43 BP 95/61 03/20/22 10:59 Pulse Ox 90 L 03/20/22 09:43 FiO2 40 03/20/22 11:05 Intake & Output 03/19/22 03/20/22 03/20/22 18:59 06:59 18:59 Intake Total 50 Output Total 550 1300 600 Balance -500 -1300 -600 Intake: Intake, IV Titration 50 Amount cefTRIAXone 1 gm In 50 Sodium Chloride 0.9% 50 ml @ 100 mls/hr IVPB Q24HR [facility] Rx#:[id number] Output: Urine 550 1300 600 Other: Voiding Method Indwelling Catheter Indwelling Catheter Indwelling Catheter # Voids 1 3 # Bowel Movements 1 1 - Exam No acute distress, oriented 3. Sitting up in bed,, with a 40% Venturi mask in place. No conversational dyspnea or use of accessory muscles. Saturations are in the mid 90s. HEENT examination is grossly unremarkable. Neck supple. Full range of motion. No adenopathy thyromegaly or neck vein distention. Cardiovascular examination reveals regular rhythm rate. S1-S2 normal. No S3 or S4. No discernible murmur noted. Heart rate 99 bpm. Heart sounds are distant. Lungs reveal scattered mild to moderate crackles and rhonchi. Breath sounds equal bilaterally. No wheezes. Currently using the ventilatory mask. Abdomen soft bowel sounds are heard. No masses or tenderness. Extremities are intact. No cyanosis clubbing or edema. Skin is without rash or lesion. Neurologic examination is brief but nonfocal. - Labs CBC & Chem 7: 03/19/22 07:57 03/19/22 07:57 Labs: Abnormal Lab Results - Last 24 Hours (Table) 03/19/22 03/19/22 03/20/22 Range/Units 16:28 21:39 06:32 POC Glucose (mg/dL) 222 H 193 H 196 H (70-110) mg/dL 03/20/22 Range/Units 11:47 POC Glucose (mg/dL) 151 H (70-110) mg/dL Assessment and Plan Assessment: Shortness of breath, likely related to underlying CHF/pulmonary edema. History of chronic atrial fibrillation/atrial flutter. History of CAD, status post bypass grafting, as well as heart catheterization with stent placement. History of CVA. Diabetes mellitus. History of myocardial infarction. Hypertension. Hyperlipidemia. History of possible COPD, secondary to prior tobacco use. Mild aortic stenosis. Plan: Plan dated 03/17/2022. The patient is placed on BiPAP at 12/5 and 40%. I doubt the patient has an active infection in the lung, but a pro-calcitonin level will be ordered. Corticosteroids are not indicated. Updrafts are fine. We'll DC the Pulmicort. No additional recommendations are made. Prognosis is guarded. Should the patient deteriorate, he may need transfer to the intensive care unit. Plan dated 03/18/2022. The patient is either on a 40% Venturi mask, or BiPAP, at 12/5 and 40%. Clinically, the patient appears to be doing better. He feels better. He is less short of breath. Medications include his usual cardiac medications, and, the patient is on Rocephin. We will continue to follow and make recommendations where appropriate. Prognosis is guarded. Plan dated 03/20/2022. The patient's labs, x-rays, and medications are reviewed. The patient is currently using a 40% Venturi mask. We will continue to follow the patient and make recommendations where appropriate. Clinically, the patient's feeling much better. He feels like he is improved over the last 24-48 hours. Overall pr ognosis remains guarded. Time with Patient: Less than 30
[2022-03-20 13:35] LABS: Calcium 8.1 mg/dL (8.4-10.2); Potassium 3.2 mmol/L (3.5-5.1)
[2022-03-20] MEDS: POTASSIUM CHLORIDE ER 20 MEQ TAB.ER PO SCH ×2 (14:21→16:16)
[2022-03-20 16:25] LABS: Glucose,Whole Blood 279 mg/dL (70-110)
--- NOTE | 2022-03-20 16:26 | P.PN ---
Subjective Progress Note Date: 03/20/22 Principal diagnosis: Acute on chronic congestive heart failure with diastolic dysfunction Acute hypoxic respiratory failure secondary to CHF Possible right-sided pneumonia 71-year-old male who was recently admitted with CHF acute exacerbation also relative hypotension. Patient becoming more hypoxic requiring Ventimask with pulmonary following and being transitioned to BiPAP. Patient with extensive weakness and recommending continued PT/OT. Chest x-ray for today ordered and pending at this time. Patient is being followed by cardiology and pulmonary has been consulted. Patient is currently afebrile and denies chest pain or palpitations. Patient is tolerating diet with no reports of nausea or vomiting noted. Patient is afebrile. Patient is maintained on IV antibiotics in the form of ceftriaxone and will continue. Also recommend continue with breathing inhalational treatments and patient has been started on IV Solu-Cortef and will continue. Patient continues on midodrine for hypotension. Patient did receive a stat dose of IV Lasix today. 03/19/2022 Patient is seen and evaluated in follow-up on the selective care unit. He is currently resting comfortably in bed. Awake and alert in no acute distress. Patient is maintained on BiPAP 12/5 and 40% FiO2. Chest x-ray reveals persistent diffuse bilateral right greater than left reticular nodular infiltrates. Overall appearance is stable. Sputum culture revealed no growth. White count 7.7. Hemoglobin 8.8. Platelets 266. Sodium 137. Potassium 4.0. BUN 35. Creatinine 1.32. Glucose 119. He is continued on DuoNeb inhalations, Solu-Cortef, IV diuretics. Anticoagulated with Eliquis. Antibiotics in the form of ceftriaxone. 03/20/2022 Patient is seen and evaluated resting in bed; currently on 40% Ventimask; O2 saturation maintaining around 90%; BiPAP to be used as needed Vital signs are reviewed with temperature 97.9, pulse 122, respiration 22 and blood pressure of 95/61 with O2 saturation of 90% on an FiO2 of 40% Lab review shows sodium 136, potassium 3.2, BUN/creatinine of 37/1.41; blood glucoses ranging between 151-209 Patient remains in atrial flutter with RVR; cardiology is following with plans for possible NU cardioversion tomorrow morning Remains on Lasix 40 mg IV twice a day for CHF exacerbation; nephro on board for acute renal injury secondary to cardiorenal syndrome; creatinine remained stable at 1.3 Objective - Vital Signs Vital signs: Vital Signs Temp 97.8 F 03/20/22 16:14 Pulse 125 H 03/20/22 16:14 Resp 22 03/20/22 16:14 BP 86/53 03/20/22 16:14 Pulse Ox 95 03/20/22 16:14 FiO2 40 03/20/22 16:14 Intake & Output 03/19/22 03/20/22 03/20/22 18:59 06:59 18:59 Intake Total 50 Output Total 550 1300 750 Balance -500 -1300 -750 Intake: Intake, IV Titration 50 Amount cefTRIAXone 1 gm In 50 Sodium Chloride 0.9% 50 ml @ 100 mls/hr IVPB Q24HR [facility] Rx#:[id number] Output: Urine 550 1300 750 Other: Voiding Method Indwelling Catheter Indwelling Catheter Indwelling Catheter # Voids 1 3 # Bowel Movements 1 1 - Exam GENERAL: The patient is alert and oriented x4, Well developed, well nourished. HEENT: Pupils are round and equally reacting to light. EOMI. no scleral icterus. No conjunctival pallor. Normocephalic, atraumatic. No pharyngeal erythema. No thyromegaly. CARDIOVASCULAR: S1 and S2 muffled PULMONARY: diminished breath sounds bilaterally with no wheezing and scattered rhonchi noted. ABDOMEN: soft. Nontender on exam. obese. non-distended, normoactive bowel sounds. No palpable organomegaly. MUSCULOSKELETAL: No joint swelling or deformity. EXTREMITIES: No cyanosis, clubbing, or pedal edema. NEUROLOGICAL: Gross neurological examination did not reveal any focal deficits. Diffuse weakness SKIN: No rashes. - Labs CBC & Chem 7: 03/19/22 07:57 03/20/22 13:03 Labs: Abnormal Lab Results - Last 24 Hours (Table) 03/19/22 03/19/22 03/20/22 Range/Units 16:28 21:39 06:32 Sodium (137-145) mmol/L Potassium (3.5-5.1) mmol/L BUN (9-20) mg/dL Creatinine (0.66-1.25) mg/dL Glucose (74-99) mg/dL POC Glucose (mg/dL) 222 H 193 H 196 H (70-110) mg/dL Calcium (8.4-10.2) mg/dL 03/20/22 03/20/22 Range/Units 11:47 13:03 Sodium 136 L (137-145) mmol/L Potassium 3.2 L (3.5-5.1) mmol/L BUN 37 H (9-20) mg/dL Creatinine 1.41 H (0.66-1.25) mg/dL Glucose 209 H (74-99) mg/dL POC Glucose (mg/dL) 151 H (70-110) mg/dL Calcium 8.1 L (8.4-10.2) mg/dL Assessment and Plan Assessment: Acute on chronic congestive heart failure with diastolic dysfunction Acute hypoxic respiratory failure secondary to CHF Possible right-sided pneumonia Atrial fibrillation Hypertension, relative History of CVA/TIA History of colitis and kidney injury GI prophylaxis DVT prophylaxis Full code Plan: Recommend to continue with current medications and management of multiple medical consultations following. Pulmonary has been consulted for hypoxia and having worsening shortness of breath and was placed on Ventimask now requiring BiPAP and will be closely monitored. Recommend continue with breathing inhalational treatments and cardiology following as well. Patient continues with hypotension and is continued on midodrine and has been started on Cortef. Patient has been seen and evaluated by PT/OT therapy recommending rehab although patient is refusing. Family at the bedside and questions and concerns were answered. Family also reports to having a cpap machine at home. Recommend repeat labs and chest xray in the am. Due to multiple complex medical issues, prognosis is extremely guarded.
[2022-03-20 19:48] LABS: Glucose,Whole Blood 300 mg/dL (70-110)
[2022-03-20] MEDS: QUEtiapine 50 MG TAB PO SCH (19:58)
[2022-03-21 06:03] LABS: Glucose,Whole Blood 190 mg/dL (70-110)
[2022-03-21] MEDS: PANTOPRAZOLE 40 MG TABLET PO SCH (06:14)
[2022-03-21] MEDS: MIDODRINE 5 MG TAB PO SCH ×3 (06:17→16:48)
[2022-03-21] MEDS: INSULIN ASPART (NovoLOG) 100 UNIT/ML VIAL SQ SCH ×4 (06:17→21:17)
[2022-03-21] MEDS: IPRATROPIUM-ALBUTEROL 3 ML NEB INHALATION SCH ×4 (07:50→19:09)
[2022-03-21] MEDS: SODIUM CHLORIDE 0.9% 1,000 ML IV SCH ×2 (08:35→14:28)
[2022-03-21] MEDS: FUROSEMIDE 10 MG/ML 4 ML VIAL IV SCH (08:43)
[2022-03-21] MEDS: METOPROLOL TARTRATE 12.5 MG TAB PO SCH ×3 (08:44→21:24)
[2022-03-21] MEDS: HYDROCORTISONE SUCCINATE 100 MG/2 ML VIAL IV SCH ×2 (08:44→21:23)
[2022-03-21] MEDS: AMIODARONE 200 MG TAB PO SCH ×2 (08:44→21:24)
[2022-03-21] MEDS: DOCUSATE 100 MG CAP PO SCH (08:44)
[2022-03-21] MEDS: APIXABAN 5 MG TAB PO SCH ×2 (08:44→21:24)
--- NOTE | 2022-03-21 10:04 | P.PN ---
Subjective Progress Note Date: 03/21/22 PROGRESS NOTE The patient is a 71-year-old male with a known history of CAD, post CABG in 1996 and percutaneous revascularization, most recently in 2014, history of hypertension, hyperlipidemia and diabetes mellitus for the prior history of atrial fibrillation and has been in sinus mechanism until October of this year subsequently was admitted to the hospital and was found to be in atrial flutter with rapid ventricle response. He was admitted this time with progressive dyspnea and findings of CHF. He continues to be in atrial flutter with rapid ventricular response in spite of beta buck and amiodarone. He has been anticoagulated. His ejection fraction was 40-45%. He feels better today, co ntinues to have dyspnea, denies any chest discomfort, dizziness or palpitations. He is unaware of the arrhythmia. He has no PND or orthopnea. He has some cough. He continues to be on amiodarone 400 mg twice a day, Elliquis was 5 mg twice a day, Lasix 40 mg IV every 12 hours, Solu Cortef, metoprolol 12-1/2 mg 3 times a day, Seroquel. PHYSICAL EXAMINATION: Blood pressure 91/50 heart rate 126 LUNGS: Decreased breath sounds bilaterally, no wheezes HEART: Irregularly irregular, S1-S2, systolic murmur at the base, ejection type ABDOMEN: [Soft, nontender, no organomegaly] EXTREMETIES: [No edema] LAB: Yesterday BUN 37, creatinine 1.41 with a potassium 3.2 IMPRESSION: 1. Persistent atrial flutter with rapid ventricular response, anticoagulated 2. Symptoms of CHF with ejection fraction 40-45% 3. Known history of CAD, post CABG and PCI 4. Prior history of hyperlipidemia PLAN: 1. add statin 2. NU with cardioversion in view of the persistent rapid ventricular response. The rationale as well as is the procedure and the risks were discussed with the patient 3. Follow renal functions 4. If stable switch to oral diuretics 5. Depending on his progress further recommendations will be made. Objective - Vital Signs Vital signs: Vital Signs Temp 97.9 F 03/21/22 08:41 Pulse 126 H 03/21/22 08:41 Resp 22 03/21/22 08:41 BP 91/52 03/21/22 08:41 Pulse Ox 90 L 03/21/22 08:41 FiO2 40 03/21/22 08:41 Intake & Output 03/20/22 03/21/22 03/21/22 18:59 06:59 18:59 Output Total 900 1200 300 Balance -900 -1200 -300 Output: Urine 900 1200 300 Other: Voiding Method Indwelling Catheter Urinal Urinal # Bowel Movements 1 - Labs CBC & Chem 7: 03/19/22 07:57 03/20/22 13:03 Labs: Abnormal Lab Results - Last 24 Hours (Table) 03/20/22 03/20/22 03/20/22 Range/Units 11:47 13:03 16:24 Sodium 136 L (137-145) mmol/L Potassium 3.2 L (3.5-5.1) mmol/L BUN 37 H (9-20) mg/dL Creatinine 1.41 H (0.66-1.25) mg/dL Glucose 209 H (74-99) mg/dL POC Glucose (mg/dL) 151 H 279 H (70-110) mg/dL Calcium 8.1 L (8.4-10.2) mg/dL 03/20/22 03/21/22 Range/Units 19:47 06:03 Sodium (137-145) mmol/L Potassium (3.5-5.1) mmol/L BUN (9-20) mg/dL Creatinine (0.66-1.25) mg/dL Glucose (74-99) mg/dL POC Glucose (mg/dL) 300 H 190 H (70-110) mg/dL Calcium (8.4-10.2) mg/dL
[2022-03-21 11:59] LABS: Allen Test Performed? Yes
[2022-03-21 12:16] LABS: ABG Base Excess 8.6 mmol/L; ABG HCO3 30 mmol/L (21-25); ABG Oxygen Saturation 95.1 % (94-97); ABG PCO2 31 mmHg (35-45); ABG PO2 67 mmHg (83-108); ABG TCO2 31 mmol/L (19-24)
[2022-03-21 12:18] LABS: Glucose,Whole Blood 117 mg/dL (70-110)
[2022-03-21] MEDS ORDERED: SODIUM CHLORIDE 0.9% 1,000 ML IV ONE (12:58)
[2022-03-21] MEDS ORDERED: PHENYLEPHRINE-0.9% NACL SYG 1,000 MCG/10 ML SYRINGE ONE (13:00)
[2022-03-21] MEDS ORDERED: LIDOCAINE 2% INJ 20 MG/ML (2 ML VIAL) ONE (13:00)
[2022-03-21] MEDS ORDERED: PROPOFOL 10 MG/ML 20 ML VIAL IV ONE (13:00)
--- NOTE | 2022-03-21 13:35 | P.PCN ---
Date of Procedure: 03/21/22 Description of Procedure: Indication: Atrial fibrillation Procedure Description: After explaining the procedure to the patient, it's risk and complications, blood pressure, heart rate and O2 saturation were monitored. The throat was sprayed with Cetacaine. Patient received sedation per anesthesia department. The probe was introduced into the esophagus without difficulty. Images were obtained. Following that, the probe was removed. There was no immediate complication. Findings: Left atrial size is mildly dilated, left atrial appendage is normal left ventricle size is normal ejection fraction 50-55%. Mitral annular calcification was noted, the aortic valve revealed fibrocalcific changes with preserved opening, no pericardial effusion was noted. Contrast bubble study revealed no shunting across the intra-atrial septum. The descending thoracic aorta revealed mild to moderate atherosclerotic changes. Doppler: Pulse-wave and color Doppler were obtained and revealed mild to moderate mitral was mild aortic and tricuspid regurgitation. He was no shunting at color Doppler study. Conclusion: 1. Dilated left atrium with normal appearance of the left atrial appendage 2. Normal in size with mild global hypokinesis 3. Aortic sclerosis with mild aortic regurgitation 4. Mitral annular calcification was mild to moderate mitral regurgitation and mild tricuspid regurgitation 5. Mild to moderate atherosclerotic changes of the descending thoracic aorta 6. No shunting across the intra-atrial septum
--- NOTE | 2022-03-21 13:37 | P.PCN ---
Date of Procedure: 03/21/22 Description of Procedure: Cardioversion: Indications atrial fibrillation After explaining the procedure to the patient as well is the risks and the complications, his blood pressure, heart rate and O2 saturation was monitored. After obtaining sedated state per Anesthesia and performing at NU a synchroni zed biphasic cardioversion using 200 J was performed with caodaism of sinus mechanism. There was no immediate complications.
[2022-03-21 13:57] LABS: Glucose,Whole Blood 119 mg/dL (70-110)
--- NOTE | 2022-03-21 15:01 | P.PN ---
Subjective Progress Note Date: 03/21/22 71-year-old male who presented to the emergency department on March 12, complaining of shortness of breath. The patient had shortness of breath about a day or so prior to admission. The patient complained about being fatigued. There was no chest pain or palpitations. He denied any cough or phlegm pro duction. No leg pain or leg swelling. The patient apparently denied any chest pain or chest discomfort. We were asked to see the patient today, for shortness of breath. Currently, he's on a 40% Venturi mask. His clinical picture is consistent with CHF. His BMP was elevated. He is on saline at KVO. I placed the patient on BiPAP at 12/5 and 40%, to see we can make him a bit more comfortable. I asked him whether or not he was any better, the same, or any worse since he was admitted. He stated about the same. I did speak to the nurse, Margaret about the patient. She thought the patient was relatively stable and has not deteriorated. The patient apparently has a history of atrial fibri llation, diabetes, GERD, hyperlipidemia, hypertension, myocardial infarction, chronic renal insufficiency, mild aortic stenosis, and possible COPD from previous tobacco use. The patient is also had heart catheterization with stent placement, and bypass grafting. White count 10.6, hemoglobin 9.5, hematocrit 31.2, and platelet count 355,000. Sodium 142, potassium 4.1, chlorides 105, CO2 25, anion gap 12, BUN 36, and creatinine 1.15. On admission, his N-terminal proBNP was 10,800. Chest x-ray in my opinion is consistent with fluid overload/CHF, and interstitial edema. The patient does have bilateral pleural effusions. Progress note dated 03/18/2022. 71-year-old male seen yesterday in consultation. Please see the note above. Today, the patient's feeling better. Yesterday, he was placed on BiPAP, with settings of 12/5 and 40%. Currently, he's using a 40% Venturi mask. I explained to the patient, they he could go back on BiPAP anytime he wishes. The BiPAP will be especially useful for his congestive heart failure. White count 10.9, hemoglobin 9.9, hematocrit 32.1, and platelet count 409,000. Sodium 139, potassium 3.4, chlorides 102, CO2 25, anion gap 12, BUN 35, and creatinine 1.30. Calcium is 8.3. Chest x-ray from March 17 is evaluated. Progress note dated 03/20/2022. 71-year-old male seen in consultation on the . The patient was admitted with a diagnosis of CHF. Because of worsening respiratory distress, we placed him on BiPAP, with settings of 12/5 and 40%. When not using BiPAP, the patient could use a 40% Venturi mask, or nasal cannula. Clinically, the patient's feeling much better. He has been receiving Lasix. No new labs today other than a glucose of 151. Chest x-ray from March 19, was reviewed already. on 03/21/2022, the patient is being seen for a follow-up. I reviewed the records. The patient has been in the hospital for almost a week complaining of shortness of breath and ongoing issues with hypoxic respiratory failure without any much improvement. This morning, the patient had based on oxygen with a 40% Ventimaskand he was still having labored breathing. He was still tachycardic and a heart rate seemed to be in flutter in the rate of 140.blood gases was done today that showed a combination of respiratory and metabolic alkalosis. The patient had a pH of 7.6 with a pCO2 of 31 and pO2 of 67. Note that the patient was being diuresed aggressively with diuresis with IV Lasix and the patient was responding knowing that his initial presentation was most consistent with CHF. Electrodes from today still pending. From yesterday, the serum bicarb was a 28 with a mean of 37 and a creatinine of 1.4.the patient remains in flutter rhythm. The patient is being considered forcardioversion following a NU and this will be done by cardiology. The patient has no lower extremity edema. No other new complaints otherwise for now. No angina. No palpitation. Chest x-ray still showing bilateral pulmonary infiltrates more so with a peripheral distribution. There is also crackles in lung bases bilaterally on today's examination. Objective - Vital Signs Vital signs: Vital Signs Temp 97.9 F 03/21/22 08:41 Pulse 126 H 03/21/22 08:41 Resp 22 03/21/22 08:41 BP 91/52 03/21/22 08:41 Pulse Ox 90 L 03/21/22 08:41 FiO2 40 03/21/22 08:41 Intake & Output 03/20/22 03/21/22 03/21/22 18:59 06:59 18:59 Output Total 900 1200 300 Balance -900 -1200 -300 Output: Urine 900 1200 300 Other: Voiding Method Indwelling Catheter Urinal Urinal # Bowel Movements 1 - Exam No acute distress, oriented 3. Sitting up in bed,, with a 40% Venturi mask in place. No conversational dyspnea or use of accessory muscles. mild the labored breathingon today's evaluation. Head exam was generally normal. There was no scleral icterus or corneal arcus. Mucous membranes were moist.. HEENT examination is grossly unremarkable. Neck supple. Full range of motion. No adenopathy thyromegaly or neck vein distention. Cardiovascular examination reveals regular rhythm rate. S1-S2 normal. No S3 or S4. No discernible murmur noted. tachycardic with a heart rate above 120 in an atrial flutter rhythm Lungs reveal scattered mild to moderate crackles and rhonchi. Breath sounds equal bilaterally. No wheezes. Currently using the ventilatory mask. Abdomen soft bowel sounds are heard. No masses or tenderness. Extremities are intact. No cyanosis clubbing or edema. Skin is without rash or lesion. Neurologic examination is brief but nonfocal. - Labs CBC & Chem 7: 03/19/22 07:57 03/20/22 13:03 Labs: Abnormal Lab Results - Last 24 Hours (Table) 03/20/22 03/20/22 03/20/22 Range/Units 11:47 13:03 16:24 Sodium 136 L (137-145) mmol/L Potassium 3.2 L (3.5-5.1) mmol/L BUN 37 H (9-20) mg/dL Creatinine 1.41 H (0.66-1.25) mg/dL Glucose 209 H (74-99) mg/dL POC Glucose (mg/dL) 151 H 279 H (70-110) mg/dL Calcium 8.1 L (8.4-10.2) mg/dL 03/20/22 03/21/22 Range/Units 19:47 06:03 Sodium (137-145) mmol/L Potassium (3.5-5.1) mmol/L BUN (9-20) mg/dL Creatinine (0.66-1.25) mg/dL Glucose (74-99) mg/dL POC Glucose (mg/dL) 300 H 190 H (70-110) mg/dL Calcium (8.4-10.2) mg/dL Assessment and Plan Plan: Shortness of breath, likely related to underlying CHF/pulmonary edema.the clinical presentation is typical for acute pulmonary edema/CHF. Nevertheless, the patient is relatively preserved LV function and the patient is responding nicely to diuresis. The patient remains in atrial flutter rhythm and the patient's rhythm is tachycardic and the patient is going to undergo a synchronized cardioversion today. Acute hypoxic respiratory failure secondary to above, remains on 40% FiO2, V entimask History of chronic atrial fibrillation/atrial flutter. History of CAD, status post bypass grafting, as well as heart catheterization with stent placement. History of CVA. Diabetes mellitus. History of myocardial infarction. Hypertension. Hyperlipidemia. History of possible COPD, secondary to prior tobacco use. Mild aortic stenosis. respiratory/metabolic alkalosis Plan Proceed with synchronized cardioversion Repeat electrolytes today patient is currently on oral Lasix 40 mg twice a day Monitor renal function IV fluids at KVO Continue metoprolol 12.5 mg 3 times a day Continue amiodarone 200 mg by mouth twice a day Continue anticoagulation with Eliquis repeat chest x-ray in the morning We'll continue to follow. plan
[2022-03-21] MEDS: FUROSEMIDE 40 MG TAB PO SCH (15:18)
--- NOTE | 2022-03-21 15:18 | P.PN ---
Subjective Progress Note Date: 03/21/22 HISTORY OF PRESENT ILLNESS 71-year-old male who was recently admitted with CHF acute exacerbation also relative hypotension. Patient becoming more hypoxic requiring Ventimask with pulmonary following and being transitioned to BiPAP. Patient with extensive weakness and recommending continued PT/OT. Chest x-ray for today ordered and pending at this time. Patient is being followed by cardiology and pulmonary has been consulted. Patient is currently afebrile and denies chest pain or palpitations. Patient is tolerating diet with no reports of nausea or vomiting noted. Patient is afebrile. Patient is maintained on IV antibiotics in the form of ceftriaxone and will continue. Also recommend continue with breathing inhalational treatments and patient has been started on IV Solu-Cortef and will continue. Patient continues on midodrine for hypotension. Patient did receive a stat dose of IV Lasix today. 03/19/2022 Patient is seen and evaluated in follow-up on the selective care unit. He is currently resting comfortably in bed. Awake and alert in no acute distress. Patient is maintained on BiPAP 12/5 and 40% FiO2. Chest x-ray reveals persistent diffuse bilateral right greater than left reticular nodular infiltrates. Overall appearance is stable. Sputum culture revealed no growth. White count 7.7. Hemoglobin 8.8. Platelets 266. Sodium 137. Potassium 4.0. BUN 35. Creatinine 1.32. Glucose 119. He is continued on DuoNeb inhalations, Solu-Cortef, IV diuretics. Anticoagulated with Eliquis. Antibiotics in the form of ceftriaxone. 03/20/2022 Patient is seen and evaluated resting in bed; currently on 40% Ventimask; O2 saturation maintaining around 90%; BiPAP to be used as needed Vital signs are reviewed with temperature 97.9, pulse 122, respiration 22 and blood pressure of 95/61 with O2 saturation of 90% on an FiO2 of 40% Lab review shows sodium 136, potassium 3.2, BUN/creatinine of 37/1.41; blood glucoses ranging between 151-209 Patient remains in atrial flutter with RVR; cardiology is following with plans for possible NU cardioversion tomorrow morning Remains on Lasix 40 mg IV twice a day for CHF exacerbation; nephro on board for acute renal injury secondary to cardiorenal syndrome; creatinine remained stable at 1.3 03/21: Patient has been seen and followed by cardiology and pulmonary medicine. Patient is scheduled for cardioversion today. Patient states he is not feeling better today. No chest pain, palpitations, no significant shortness of breath at rest. He has been afebrile, heart rate in the 120s, blood pressure 91/52, pulse ox 90% on 40% Ventimask. Capillary blood glucose running between 119 and 300. ABGs pH 7.6, pCO2 31, pO2 67, sodium bicarb 30, total CO2 31, O2 saturation 95.1. Base excess 8.6. Patient is also followed by nephrology for acute kidney injury. REVIEW OF SYSTEMS Constitutional: No fever, no chills, no night sweats. No weight change. No weakness, fatigue or lethargy. No daytime sleepiness. EENT: No headache. No blurred vision or double vision, no loss of vision. No loss of Hearing, no ringing in the ears, no dizziness. No nasal drainage or congestion. No epistaxis. No sore throat. Lungs: No shortness of breath, cough, no sputum production. No wheezing. Cardiovascular: No chest pain, no lower extremity edema. No palpitations. No paroxysmal nocturnal dyspnea. No orthopnea. No lightheadedness or dizziness. No syncopal episodes. Abdominal: No abdominal pain. No nausea, vomiting. No diarrhea. No constipation. No bloody or tarry stools. No loss of appetite. Genitourinary: No dysuria, increased frequency, urgency. No urinary retention. Musculoskeletal: No myalgias. No muscle weakness, no gait dysfunction, no frequent falls. No back pain. No neck pain. Integumentary: No wounds, no lesions. No rash or pruritus. No unusual bruising. No change in hair or nails. Neurologic: No aphasia. No facial droop. No change in mentation. No head injury. No headache. No paralysis. No paresthesia. Psychiatric: No depression. No anxiety. No mood swings. Endocrine: No abnormal blood sugars. No weight change. No excessive sweating or thirst. No cold intolerance. PHYSICAL EXAMINATION Gen: This is a 71-year-old male. HEENT: Head is atraumatic, normocephalic. Pupils equal, round. Sclerae is anicteric. NECK: Supple. No JVD. No lymphadenopathy. No thyromegaly. LUNGS: Few scattered crackles and rhonchi. No intercostal retractions. HEART: Irregular rate and rhythm. Systolic murmur. ABDOMEN: Soft. Bowel sounds are present. No masses. No tenderness. EXTREMITIES: No pedal edema. No calf tenderness. NEUROLOGICAL: Patient is awake, alert and oriented x3. Cranial nerves 2 through 12 are grossly intact. ASSESSMENT AND PLAN 1. Persistent atrial flutter with RVR. Patient is seen and followed by cardiology with plan for cardioversion today. Continue patient on eliquis 5 mg twice daily, Lopressor 12.5 mg 3 times daily, amiodarone 200 mg twice daily. 2. Acute on chronic diastolic heart failure. Continue patient on Lasix 40 mg twice daily. 3. Acute hypoxic respiratory failure secondary to CHF. 4. Acute kidney injury secondary to prerenal and cardiorenal syndrome. Patient is followed by nephrology with recommendations to continue Lasix twice daily, and Aranesp 40 units every week and monitor orthostatic changes. Nephrology started the patient on Solu-Cortef 50 mg IV twice daily. 5. Hyperlipidemia. Continue atorvastatin 40 mg daily. 6. Hypertension. 7. History of CVA or TIA. 8. Possible COPD. Continue DuoNeb treatments 4 times daily and as needed. 9. Mild aortic stenosis. 10. Coronary artery disease status post CABG and PCI 11. GI prophylaxis. 12. DVT prophylaxis. Eliquis 5 mg twice daily. 13. Obstructive sleep apnea with CPAP. 14. Recurrent depression. Continue Seroquel 50 mg at bedtime. 15. Hypotension. Patient was started on midodrine 10 mg 3 times daily. DISCHARGE PLAN To be determined]. Impression and plan of care have been directed as dictated by the signing physician. Luci Farrar nurse practitioner acting as scribe for signing physician. Objective - Vital Signs Vital signs: Vital Signs Temp 97.8 F 03/21/22 00:04 Pulse 127 H 03/21/22 08:00 Resp 20 03/21/22 08:00 BP 97/64 03/21/22 04:23 Pulse Ox 93 L 03/21/22 07:56 FiO2 40 03/21/22 07:56 Intake & Output 03/20/22 03/21/22 03/21/22 18:59 06:59 18:59 Output Total 900 1200 Balance -900 -1200 Output: Urine 900 1200 Other: Voiding Method Indwelling Catheter Urinal # Bowel Movements 1 - Labs CBC & Chem 7: 03/19/22 07:57 03/20/22 13:03 Labs: Abnormal Lab Results - Last 24 Hours (Table) 03/20/22 03/20/22 03/20/22 Range/Units 11:47 13:03 16:24 Sodium 136 L (137-145) mmol/L Potassium 3.2 L (3.5-5.1) mmol/L BUN 37 H (9-20) mg/dL Creatinine 1.41 H (0.66-1.25) mg/dL Glucose 209 H (74-99) mg/dL POC Glucose (mg/dL) 151 H 279 H (70-110) mg/dL Calcium 8.1 L (8.4-10.2) mg/dL 03/20/22 03/21/22 Range/Units 19:47 06:03 Sodium (137-145) mmol/L Potassium (3.5-5.1) mmol/L BUN (9-20) mg/dL Creatinine (0.66-1.25) mg/dL Glucose (74-99) mg/dL POC Glucose (mg/dL) 300 H 190 H (70-110) mg/dL Calcium (8.4-10.2) mg/dL
[2022-03-21 15:54] LABS: Albumin 2.9 g/dL (3.5-5.0); Calcium 8.3 mg/dL (8.4-10.2); Potassium 3.9 mmol/L (3.5-5.1); Total Bilirubin 0.4 mg/dL (0.2-1.3)
[2022-03-21 16:43] LABS: Glucose,Whole Blood 94 mg/dL (70-110)
[2022-03-21 20:39] LABS: Glucose,Whole Blood 124 mg/dL (70-110)
[2022-03-21] MEDS: QUEtiapine 50 MG TAB PO SCH (21:24)
[2022-03-22 06:13] LABS: Glucose,Whole Blood 145 mg/dL (70-110)
[2022-03-22] MEDS: MIDODRINE 5 MG TAB PO SCH ×3 (06:22→16:30)
[2022-03-22] MEDS: PANTOPRAZOLE 40 MG TABLET PO SCH (06:22)
[2022-03-22] MEDS: INSULIN ASPART (NovoLOG) 100 UNIT/ML VIAL SQ SCH ×4 (06:22→21:16)
[2022-03-22] MEDS: IPRATROPIUM-ALBUTEROL 3 ML NEB INHALATION SCH ×4 (07:39→20:08)
[2022-03-22] MEDS: SODIUM CHLORIDE 0.9% 1,000 ML IV SCH ×2 (08:07→11:49)
[2022-03-22] MEDS: HYDROCORTISONE SUCCINATE 100 MG/2 ML VIAL IV SCH (08:09)
[2022-03-22] MEDS: FUROSEMIDE 40 MG TAB PO SCH ×2 (08:10→16:30)
[2022-03-22] MEDS: ATORVASTATIN 40 MG TAB PO SCH (08:10)
[2022-03-22] MEDS: METOPROLOL TARTRATE 12.5 MG TAB PO SCH ×3 (08:10→21:15)
[2022-03-22] MEDS: APIXABAN 5 MG TAB PO SCH ×2 (08:10→21:15)
[2022-03-22] MEDS: AMIODARONE 200 MG TAB PO SCH ×2 (08:10→21:16)
[2022-03-22] MEDS: DOCUSATE 100 MG CAP PO SCH (08:10)
--- NOTE | 2022-03-22 08:25 | P.PN ---
Subjective Progress Note Date: 03/22/22 PROGRESS NOTE The patient is a 71-year-old male with a known history of CAD, post CABG in 1996 and percutaneous revascularization, most recently in 2014, history of hypertension, hyperlipidemia and diabetes mellitus for the prior history of atrial fibrillation and has been in sinus mechanism until October of this year subsequently was admitted to the hospital and was found to be in atrial flutter with rapid ventricle response. He was admitted this time with progressive dyspnea and findings of CHF. He continues to be in atrial flutter with rapid ventricular response in spite of beta buck and amiodarone. He has been anticoagulated. His ejection fraction was 40-45%. He feels better today, co ntinues to have dyspnea, denies any chest discomfort, dizziness or palpitations. He is unaware of the arrhythmia. He has no PND or orthopnea. He has some cough. He continues to be on amiodarone 400 mg twice a day, Elliquis was 5 mg twice a day, Lasix 40 mg IV every 12 hours, Solu Cortef, metoprolol 12-1/2 mg 3 times a day, Seroquel. March 22: The patient feels better today, he underwent NU guided cardioversion yesterday with cheondoism of sinus mechanism. His breathing is better. He denies any chest discomfort, dizziness or palpitations. His blood pressure is on the low side but stable. He has no significant cough. He continues to be on amiodarone 200 mg twice a day, Lasix 40 mg twice a day, Solu-Cortef, metoprolol tartrate 12-1/2 mg 3 times a day, Eliquis 5 mg twice a day. PHYSICAL EXAMINATION: Blood pressure 95/50 with a heart rate in the 70s LUNGS: Decreased breath sounds bilaterally, no wheezes HEART: Regular rate and rhythm, S1-S2, systolic murmur at the base, ejection type ABDOMEN: Soft, nontender, no organomegaly EXTREMETIES: No edema LAB: Pending IMPRESSION: 1. Persistent atrial flutter with rapid ventricular response, anticoagulated, back in sinus mechanism post cardioversion 2. Symptoms of CHF with ejection fraction 40-45%, improving, worsened by the arrhythmia 3. Known history of CAD, post CABG and PCI 4. Prior history of hyperlipidemia PLAN: 1. Follow renal functions 2. Increase physical activity 3. Probable discharge home soon 4. Depending on the blood pressure adjust the dose of his beta buck. Objective - Vital Signs Vital signs: Vital Signs Temp 98.1 F 03/22/22 03:58 Pulse 68 03/22/22 07:53 Resp 18 03/22/22 03:58 BP 91/48 03/22/22 03:58 Pulse Ox 87 L 03/22/22 07:40 FiO2 40 03/22/22 07:40 Intake & Output 03/21/22 03/22/22 03/22/22 18:59 06:59 18:59 Intake Total 250 Output Total 800 250 Balance -550 -250 Intake: Oral 250 Output: Urine 800 250 Other: Voiding Method Urinal Urinal - Labs CBC & Chem 7: 03/19/22 07:57 03/21/22 15:11 Labs: Abnormal Lab Results - Last 24 Hours (Table) 03/21/22 03/21/22 03/21/22 Range/Units 12:10 12:16 13:55 ABG pH 7.60 H* (7.35-7.45) ABG pCO2 31 L (35-45) mmHg ABG pO2 67 L (83-108) mmHg ABG HCO3 30 H (21-25) mmol/L ABG Total CO2 31 H (19-24) mmol/L Carbon Dioxide (22-30) mmol/L BUN (9-20) mg/dL Creatinine (0.66-1.25) mg/dL Glucose (74-99) mg/dL POC Glucose (mg/dL) 117 H 119 H (70-110) mg/dL Calcium (8.4-10.2) mg/dL Alkaline Phosphatase (38-126) U/L Total Protein (6.3-8.2) g/dL Albumin (3.5-5.0) g/dL 03/21/22 03/21/22 03/22/22 Range/Units 15:11 20:37 06:11 ABG pH (7.35-7.45) ABG pCO2 (35-45) mmHg ABG pO2 (83-108) mmHg ABG HCO3 (21-25) mmol/L ABG Total CO2 (19-24) mmol/L Carbon Dioxide 31 H (22-30) mmol/L BUN 42 H (9-20) mg/dL Creatinine 1.40 H (0.66-1.25) mg/dL Glucose 105 H (74-99) mg/dL POC Glucose (mg/dL) 124 H 145 H (70-110) mg/dL Calcium 8.3 L (8.4-10.2) mg/dL Alkaline Phosphatase 178 H (38-126) U/L Total Protein 6.0 L (6.3-8.2) g/dL Albumin 2.9 L (3.5-5.0) g/dL
--- NOTE | 2022-03-22 08:41 | XR ---
EXAMINATION TYPE: XR chest 1V DATE OF EXAM: 03/22/2022 COMPARISON: 03/19/2022 HISTORY: Shortness of breath TECHNIQUE: Single frontal view of the chest is obtained. FINDINGS: A diffuse reticular interstitial pattern. Cardiomegaly with postsurgical changes. Suspect underlying COPD. Small bilateral pleural effusions. Some of the sternotomy wires appear to be disrupt ed. IMPRESSION: Stable x-ray correlate for interstitial fibrosis with superimposed CHF or interstitial p neumonitis.
[2022-03-22 10:19] LABS: Albumin 2.8 g/dL (3.5-5.0); Calcium 8.4 mg/dL (8.4-10.2); Potassium 3.9 mmol/L (3.5-5.1); Total Bilirubin 0.5 mg/dL (0.2-1.3); Total Protein 5.9 g/dL (6.3-8.2)
--- NOTE | 2022-03-22 10:30 | P.PN ---
Subjective Progress Note Date: 03/22/22 71-year-old male who presented to the emergency department on March 12, complaining of shortness of breath. The patient had shortness of breath about a day or so prior to admission. The patient complained about being fatigued. There was no chest pain or palpitations. He denied any cough or phlegm pro duction. No leg pain or leg swelling. The patient apparently denied any chest pain or chest discomfort. We were asked to see the patient today, for shortness of breath. Currently, he's on a 40% Venturi mask. His clinical picture is consistent with CHF. His BMP was elevated. He is on saline at KVO. I placed the patient on BiPAP at 12/5 and 40%, to see we can make him a bit more comfortable. I asked him whether or not he was any better, the same, or any worse since he was admitted. He stated about the same. I did speak to the nurse, Margaret about the patient. She thought the patient was relatively stable and has not deteriorated. The patient apparently has a history of atrial fibri llation, diabetes, GERD, hyperlipidemia, hypertension, myocardial infarction, chronic renal insufficiency, mild aortic stenosis, and possible COPD from previous tobacco use. The patient is also had heart catheterization with stent placement, and bypass grafting. White count 10.6, hemoglobin 9.5, hematocrit 31.2, and platelet count 355,000. Sodium 142, potassium 4.1, chlorides 105, CO2 25, anion gap 12, BUN 36, and creatinine 1.15. On admission, his N-terminal proBNP was 10,800. Chest x-ray in my opinion is consistent with fluid overload/CHF, and interstitial edema. The patient does have bilateral pleural effusions. Progress note dated 03/18/2022. 71-year-old male seen yesterday in consultation. Please see the note above. Today, the patient's feeling better. Yesterday, he was placed on BiPAP, with settings of 12/5 and 40%. Currently, he's using a 40% Venturi mask. I explained to the patient, they he could go back on BiPAP anytime he wishes. The BiPAP will be especially useful for his congestive heart failure. White count 10.9, hemoglobin 9.9, hematocrit 32.1, and platelet count 409,000. Sodium 139, potassium 3.4, chlorides 102, CO2 25, anion gap 12, BUN 35, and creatinine 1.30. Calcium is 8.3. Chest x-ray from March 17 is evaluated. Progress note dated 03/20/2022. 71-year-old male seen in consultation on the . The patient was admitted with a diagnosis of CHF. Because of worsening respiratory distress, we placed him on BiPAP, with settings of 12/5 and 40%. When not using BiPAP, the patient could use a 40% Venturi mask, or nasal cannula. Clinically, the patient's feeling much better. He has been receiving Lasix. No new labs today other than a glucose of 151. Chest x-ray from March 19, was reviewed already. on 03/21/2022, the patient is being seen for a follow-up. I reviewed the records. The patient has been in the hospital for almost a week complaining of shortness of breath and ongoing issues with hypoxic respiratory failure without any much improvement. This morning, the patient had based on oxygen with a 40% Ventimaskand he was still having labored breathing. He was still tachycardic and a heart rate seemed to be in flutter in the rate of 140.blood gases was done today that showed a combination of respiratory and metabolic alkalosis. The patient had a pH of 7.6 with a pCO2 of 31 and pO2 of 67. Note that the patient was being diuresed aggressively with diuresis with IV Lasix and the patient was responding knowing that his initial presentation was most consistent with CHF. Electrodes from today still pending. From yesterday, the serum bicarb was a 28 with a mean of 37 and a creatinine of 1.4.the patient remains in flutter rhythm. The patient is being considered forcardioversion following a NU and this will be done by cardiology. The patient has no lower extremity edema. No other new complaints otherwise for now. No angina. No palpitation. Chest x-ray still showing bilateral pulmonary infiltrates more so with a peripheral distribution. There is also crackles in lung bases bilaterally on today's examination. 03/22/2022, the patient is being seen for a follow-up. Note that the patient's is an acute hypoxic respiratory failure and the patient is currently on a 40% Ventimask. No improvement in oxygenation and repeat chest x-ray was done showing diffuse bilateral pulmonary infiltrates with no interval change compared to the earlier chest x-rays. Note that there is a diffuse reticular another interstitial pattern along with cardiomegaly. Obviously the initial concern that this was CHF. Nevertheless, possibility of an underlying infectious or postinfectious causes/ARDS cannot be completely ruled out. Based on that, I would suggest further investigation. The patient is afebrile. The patient is hemodynamically stable. On today's blood work, his BUN is 45 with a creatinine of 1.4 and sodium level is at 138 and the patient was switched to oral Lasix. Note that his initial proBNP level was quite elevated supporting the diagnosis of CHF. Nevertheless, the response to the diuretics was suboptimal. Also, the patient underwent cardioversion yesterday and his cardiac rhythm is back to sinus. He remains on anticoagulants. He is started on IV Rocephin Objective - Vital Signs Vital signs: Vital Signs Temp 97.8 F 03/22/22 08:06 Pulse 72 03/22/22 08:06 Resp 20 03/22/22 08:06 BP 103/56 03/22/22 08:06 Pulse Ox 88 L 03/22/22 09:47 FiO2 50 03/22/22 09:47 Intake & Output 03/21/22 03/22/22 03/22/22 18:59 06:59 18:59 Intake Total 250 200 Output Total 800 250 300 Balance -550 -250 -100 Intake: Oral 250 200 Output: Urine 800 250 300 Other: Voiding Method Urinal Urinal Urinal - Exam No acute distress, oriented 3. Sitting up in bed,, with a 40% Venturi mask in place. No conversational dyspnea or use of accessory muscles. mild the labored breathingon today's evaluation. Head exam was generally normal. There was no scleral icterus or corneal arcus. Mucous membranes were moist.. HEENT examination is grossly unremarkable. Neck supple. Full range of motion. No adenopathy thyromegaly or neck vein distention. Cardiovascular examination reveals regular rhythm rate. S1-S2 normal. No S3 or S4. No discernible murmur noted. tachycardic with a heart rate above 120 in an atrial flutter rhythm Lungs reveal scattered mild to moderate crackles and rhonchi. Breath sounds equal bilaterally. No wheezes. Currently using the ventilatory mask. Abdomen soft bowel sounds are heard. No masses or tenderness. Extremities are intact. No cyanosis clubbing or edema. Skin is without rash or lesion. Neurologic examination is brief but nonfocal. - Labs CBC & Chem 7: 03/19/22 07:57 03/22/22 09:44 Labs: Abnormal Lab Results - Last 24 Hours (Table) 03/21/22 03/21/22 03/21/22 Range/Units 12:10 12:16 13:55 ABG pH 7.60 H* (7.35-7.45) ABG pCO2 31 L (35-45) mmHg ABG pO2 67 L (83-108) mmHg ABG HCO3 30 H (21-25) mmol/L ABG Total CO2 31 H (19-24) mmol/L Carbon Dioxide (22-30) mmol/L BUN (9-20) mg/dL Creatinine (0.66-1.25) mg/dL Glucose (74-99) mg/dL POC Glucose (mg/dL) 117 H 119 H (70-110) mg/dL Calcium (8.4-10.2) mg/dL Alkaline Phosphatase (38-126) U/L Total Protein (6.3-8.2) g/dL Albumin (3.5-5.0) g/dL 03/21/22 03/21/22 03/22/22 Range/Units 15:11 20:37 06:11 ABG pH (7.35-7.45) ABG pCO2 (35-45) mmHg ABG pO2 (83-108) mmHg ABG HCO3 (21-25) mmol/L ABG Total CO2 (19-24) mmol/L Carbon Dioxide 31 H (22-30) mmol/L BUN 42 H (9-20) mg/dL Creatinine 1.40 H (0.66-1.25) mg/dL Glucose 105 H (74-99) mg/dL POC Glucose (mg/dL) 124 H 145 H (70-110) mg/dL Calcium 8.3 L (8.4-10.2) mg/dL Alkaline Phosphatase 178 H (38-126) U/L Total Protein 6.0 L (6.3-8.2) g/dL Albumin 2.9 L (3.5-5.0) g/dL 03/22/22 Range/Units 09:44 ABG pH (7.35-7.45) ABG pCO2 (35-45) mmHg ABG pO2 (83-108) mmHg ABG HCO3 (21-25) mmol/L ABG Total CO2 (19-24) mmol/L Carbon Dioxide (22-30) mmol/L BUN 45 H (9-20) mg/dL Creatinine 1.47 H (0.66-1.25) mg/dL Glucose 124 H (74-99) mg/dL POC Glucose (mg/dL) (70-110) mg/dL Calcium (8.4-10.2) mg/dL Alkaline Phosphatase 165 H (38-126) U/L Total Protein 5.9 L (6.3-8.2) g/dL Albumin 2.8 L (3.5-5.0) g/dL Assessment and Plan Plan: Shortness of breath, likely related to underlying CHF/pulmonary edema.the clinical presentation is typical for acute pulmonary edema/CHF. Nevertheless, the patient is relatively preserved LV function and the patient is assured responded to diuresis. The patient remains in atrial flutter rhythm and the patient's rhythm is tachycardic and the underwent cardioversion and current r hythm is sinus for now. Nevertheless, the patient continues to be hypoxic in the chest x-ray from today showing diffuse bilateral reticular another pulmonary infiltrates, consider postinfectious ARDS. Acute hypoxic respiratory failure remains on 40% FiO2, Ventimask History of chronic atrial fibrillation/atrial flutter. Anticoagulation with Eliquis History of CAD, status post bypass grafting, as well as heart catheterization with stent placement. History of CVA. Diabetes mellitus. History of myocardial infarction. Hypertension. Hyperlipidemia. History of possible COPD, secondary to prior tobacco use. Mild aortic stenosis. respiratory/metabolic alkalosis Plan Noncontrast CAT scan of the chest Check a Legionella urine antigen Discontinue the hydrocortisone and put the patient on Solu-Medrol 40 mg every 12 hours The patient is post synchronized cardioversion Repeat electrolytes today is unchanged Continue oral Lasix 40 mg twice a day Monitor renal function IV fluids at KVO We'll keep the patient negative fluid balance Continue metoprolol 12.5 mg 3 times a day Continue amiodarone 200 mg by mouth twice a day Continue anticoagulation with Eliquis We'll continue to follow. plan
[2022-03-22] MEDS: methylPREDNISolone SOD SUCCI 40 MG/ML 1 ML VIAL IV SCH ×3 (10:46→23:20)
[2022-03-22] MEDS: CEFEPIME 2 GM in SODIUM CHLORIDE 0.9% 100 ML IVPB SCH ×2 (10:46→21:17)
[2022-03-22 11:22] VITALS: BMI 26.4
--- NOTE | 2022-03-22 11:32 | P.PN ---
Subjective Patient is seen for follow-up for acute kidney injury mostly cardiorenal. He is currently maintained on oral Lasix. Serum creatinine staying at about 1.4 mg/dL Previous creatinine has been around 1.0 1.1 mg/dL with history of CK D stage 2- 3 a secondary to nephrosclerosis 24-hour urine output documented at 1050 mL Blood pressure remains on the lower side with systolic in the 90s Patient is maintained on Solu-Medrol. He has underlying adrenal insufficiency and maintained on Cortef prior to admission Objective - Vital Signs Vital signs: Vital Signs Temp 97.8 F 03/22/22 08:06 Pulse 72 03/22/22 08:06 Resp 20 03/22/22 08:06 BP 103/56 03/22/22 08:06 Pulse Ox 88 L 03/22/22 09:47 FiO2 50 03/22/22 09:47 Intake & Output 03/21/22 03/22/22 03/22/22 18:59 06:59 18:59 Intake Total 250 200 Output Total 800 250 300 Balance -550 -250 -100 Weight 96 kg Intake: Oral 250 200 Output: Urine 800 250 300 Other: Voiding Method Urinal Urinal Urinal - Exam Patient is awake, comfortable, not in any acute distress Examination of the heart S1 and S2 Examination of lungs bilateral breath sounds are heard Abdomen is soft nontender Examination of lower extremities shows no significant edema 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 grossly intact - Labs CBC & Chem 7: 03/19/22 07:57 03/22/22 09:44 Labs: Abnormal Lab Results - Last 24 Hours (Table) 03/21/22 03/21/22 03/21/22 Range/Units 12:10 12:16 13:55 ABG pH 7.60 H* (7.35-7.45) ABG pCO2 31 L (35-45) mmHg ABG pO2 67 L (83-108) mmHg ABG HCO3 30 H (21-25) mmol/L ABG Total CO2 31 H (19-24) mmol/L Carbon Dioxide (22-30) mmol/L BUN (9-20) mg/dL Creatinine (0.66-1.25) mg/dL Glucose (74-99) mg/dL POC Glucose (mg/dL) 117 H 119 H (70-110) mg/dL Calcium (8.4-10.2) mg/dL Alkaline Phosphatase (38-126) U/L Total Protein (6.3-8.2) g/dL Albumin (3.5-5.0) g/dL 03/21/22 03/21/22 03/22/22 Range/Units 15:11 20:37 06:11 ABG pH (7.35-7.45) ABG pCO2 (35-45) mmHg ABG pO2 (83-108) mmHg ABG HCO3 (21-25) mmol/L ABG Total CO2 (19-24) mmol/L Carbon Dioxide 31 H (22-30) mmol/L BUN 42 H (9-20) mg/dL Creatinine 1.40 H (0.66-1.25) mg/dL Glucose 105 H (74-99) mg/dL POC Glucose (mg/dL) 124 H 145 H (70-110) mg/dL Calcium 8.3 L (8.4-10.2) mg/dL Alkaline Phosphatase 178 H (38-126) U/L Total Protein 6.0 L (6.3-8.2) g/dL Albumin 2.9 L (3.5-5.0) g/dL 03/22/22 Range/Units 09:44 ABG pH (7.35-7.45) ABG pCO2 (35-45) mmHg ABG pO2 (83-108) mmHg ABG HCO3 (21-25) mmol/L ABG Total CO2 (19-24) mmol/L Carbon Dioxide (22-30) mmol/L BUN 45 H (9-20) mg/dL Creatinine 1.47 H (0.66-1.25) mg/dL Glucose 124 H (74-99) mg/dL POC Glucose (mg/dL) (70-110) mg/dL Calcium (8.4-10.2) mg/dL Alkaline Phosphatase 165 H (38-126) U/L Total Protein 5.9 L (6.3-8.2) g/dL Albumin 2.8 L (3.5-5.0) g/dL Assessment and Plan Assessment: 1. Acute kidney injury associated with hypoperfusion and cardiorenal. Renal function currently stable with creatinine 1.4. UA is benign from his last admission. No evidence of obstruction on CT scan 2. CK D stage II/38 secondary to nephrosclerosis with baseline creatinine 1-1.1 3. A. fib with RVR 4. Anemia of chronic disease, iron replete 5. Adrenal insufficiency with low cortisol level last admission currently maintained on Solu-Medrol. Patient was on Cortef during his last admission 6. Chronic systolic CHF. Ejection fraction 40-45% with mild to mitral and tricuspid regurgitation 7. Acute hypoxic respiratory failure, etiology CHF versus underlying ARDS. Being followed by pulmonology Plan: Continue current dose of Lasix
[2022-03-22 11:47] LABS: Glucose,Whole Blood 129 mg/dL (70-110)
--- NOTE | 2022-03-22 11:49 | P.PN ---
Subjective Progress Note Date: 03/22/22 HISTORY OF PRESENT ILLNESS 71-year-old male who was recently admitted with CHF acute exacerbation also relative hypotension. Patient becoming more hypoxic requiring Ventimask with pulmonary following and being transitioned to BiPAP. Patient with extensive weakness and recommending continued PT/OT. Chest x-ray for today ordered and pending at this time. Patient is being followed by cardiology and pulmonary has been consulted. Patient is currently afebrile and denies chest pain or palpitations. Patient is tolerating diet with no reports of nausea or vomiting noted. Patient is afebrile. Patient is maintained on IV antibiotics in the form of ceftriaxone and will continue. Also recommend continue with breathing inhalational treatments and patient has been started on IV Solu-Cortef and will continue. Patient continues on midodrine for hypotension. Patient did receive a stat dose of IV Lasix today. 03/19/2022 Patient is seen and evaluated in follow-up on the selective care unit. He is currently resting comfortably in bed. Awake and alert in no acute distress. Patient is maintained on BiPAP 12/5 and 40% FiO2. Chest x-ray reveals persistent diffuse bilateral right greater than left reticular nodular infiltrates. Overall appearance is stable. Sputum culture revealed no growth. White count 7.7. Hemoglobin 8.8. Platelets 266. Sodium 137. Potassium 4.0. BUN 35. Creatinine 1.32. Glucose 119. He is continued on DuoNeb inhalations, Solu-Cortef, IV diuretics. Anticoagulated with Eliquis. Antibiotics in the form of ceftriaxone. 03/20/2022 Patient is seen and evaluated resting in bed; currently on 40% Ventimask; O2 saturation maintaining around 90%; BiPAP to be used as needed Vital signs are reviewed with temperature 97.9, pulse 122, respiration 22 and blood pressure of 95/61 with O2 saturation of 90% on an FiO2 of 40% Lab review shows sodium 136, potassium 3.2, BUN/creatinine of 37/1.41; blood glucoses ranging between 151-209 Patient remains in atrial flutter with RVR; cardiology is following with plans for possible NU cardioversion tomorrow morning Remains on Lasix 40 mg IV twice a day for CHF exacerbation; nephro on board for acute renal injury secondary to cardiorenal syndrome; creatinine remained stable at 1.3 03/21: Patient has been seen and followed by cardiology and pulmonary medicine. Patient is scheduled for cardioversion today. Patient states he is not feeling better today. No chest pain, palpitations, no significant shortness of breath at rest. He has been afebrile, heart rate in the 120s, blood pressure 91/52, pulse ox 90% on 40% Ventimask. Capillary blood glucose running between 119 and 300. ABGs pH 7.6, pCO2 31, pO2 67, sodium bicarb 30, total CO2 31, O2 saturation 95.1. Base excess 8.6. Patient is also followed by nephrology for acute kidney injury. 03/22: Yesterday, patient underwent successful NU and cardioversion and converted to sinus rhythm which is maintained. Patient is currently on a 40% Ventimask and unfortunately his pulse ox drops down to 85% without the Ventimask, maintaining at 91% with. Repeat chest x-ray reveals stable chest x- ray correlate for interstitial fibrosis with superimposed CHF or interstitial pneumonitis. Patient is followed closely by pulmonary medicine and patient started on cefepime, Solu-Medrol 40 mg IV every [address] of the chest ordered. Nephrology is following and recommending continuing current dose of Lasix which is 40 mg oral twice daily. REVIEW OF SYSTEMS Constitutional: No fever, no chills, no night sweats. No weight change. No weakness, fatigue or lethargy. No daytime sleepiness. EENT: No headache. No blurred vision or double vision, no loss of vision. No loss of Hearing, no ringing in the ears, no dizziness. No nasal drainage or congestion. No epistaxis. No sore throat. Lungs: Continued shortness of breath, cough, no sputum production. No wheezing. Cardiovascular: No chest pain, no lower extremity edema. No palpitations. No paroxysmal nocturnal dyspnea. No orthopnea. No lightheadedness or dizziness. No syncopal episodes. Abdominal: No abdominal pain. No nausea, vomiting. No diarrhea. No constipat ion. No bloody or tarry stools. No loss of appetite. Genitourinary: No dysuria, increased frequency, urgency. No urinary retention. Musculoskeletal: No myalgias. No muscle weakness, no gait dysfunction, no frequent falls. No back pain. No neck pain. Integumentary: No wounds, no lesions. No rash or pruritus. No unusual bruising. No change in hair or nails. Neurologic: No aphasia. No facial droop. No change in mentation. No head injury. No headache. No paralysis. No paresthesia. Psychiatric: No depression. No anxiety. No mood swings. Endocrine: No abnormal blood sugars. No weight change. No excessive sweating or thirst. No cold intolerance. PHYSICAL EXAMINATION Gen: This is a 71-year-old male, resting in bed and appears to be fairly comfortable. HEENT: Head is atraumatic, normocephalic. Pupils equal, round. Sclerae is anicteric. NECK: Supple. No JVD. No lymphadenopathy. No thyromegaly. LUNGS: Few scattered crackles and rhonchi. No intercostal retractions. HEART: Irregular rate and rhythm. Systolic murmur. ABDOMEN: Soft. Bowel sounds are present. No masses. No tenderness. EXTREMITIES: No pedal edema. No calf tenderness. NEUROLOGICAL: Patient is awake, alert and oriented x3. Cranial nerves 2 through 12 are grossly intact. ASSESSMENT AND PLAN 1. Persistent atrial flutter with RVR. Patient is seen and followed by cardiology with plan for cardioversion 03/21. Continue patient on eliquis 5 mg twice daily, Lopressor 12.5 mg 3 times daily, amiodarone 200 mg twice daily. 2. Acute on chronic diastolic heart failure. Continue patient on Lasix 40 mg twice daily. 3. Acute hypoxic respiratory failure secondary to CHF pulmonary medicine consult appreciated, patient started on cefepime 2 g IV piggyback every 12 hours and Solu-Medrol 40 mg IV every 8 hours, continue DuoNeb treatments 4 times daily and as needed.. 4. Acute kidney injury secondary to prerenal and cardiorenal syndrome. Patient is followed by nephrology with recommendations to continue Lasix twice daily, and Aranesp 40 units every week and monitor orthostatic changes. 5. Hyperlipidemia. Continue atorvastatin 40 mg daily. 6. Hypertension. 7. History of CVA or TIA. 8. Possible COPD. Continue DuoNeb treatments 4 times daily and as needed. 9. Mild aortic stenosis. 10. Coronary artery disease status post CABG and PCI 11. GI prophylaxis. 12. DVT prophylaxis. Eliquis 5 mg twice daily. 13. Obstructive sleep apnea with CPAP. 14. Recurrent depression. Continue Seroquel 50 mg at bedtime. 15. Hypotension. Patient was started on midodrine 10 mg 3 times daily. 16. Chronic kidney disease stage III. DISCHARGE PLAN To be determined]. Impression and plan of care have been directed as dictated by the signing physician. Luci Farrar nurse practitioner acting as scribe for signing physician. Objective - Vital Signs Vital signs: Vital Signs Temp 98.1 F 03/22/22 03:58 Pulse 68 03/22/22 07:53 Resp 18 03/22/22 03:58 BP 91/48 03/22/22 03:58 Pulse Ox 87 L 03/22/22 07:40 FiO2 40 03/22/22 07:40 Intake & Output 03/21/22 03/22/22 03/22/22 18:59 06:59 18:59 Intake Total 250 200 Output Total 800 250 Balance -550 -250 200 Intake: Oral 250 200 Output: Urine 800 250 Other: Voiding Method Urinal Urinal - Labs CBC & Chem 7: 03/19/22 07:57 03/22/22 09:44 Labs: Abnormal Lab Results - Last 24 Hours (Table) 03/21/22 03/21/22 03/21/22 Range/Units 12:10 12:16 13:55 ABG pH 7.60 H* (7.35-7.45) ABG pCO2 31 L (35-45) mmHg ABG pO2 67 L (83-108) mmHg ABG HCO3 30 H (21-25) mmol/L ABG Total CO2 31 H (19-24) mmol/L Carbon Dioxide (22-30) mmol/L BUN (9-20) mg/dL Creatinine (0.66-1.25) mg/dL Glucose (74-99) mg/dL POC Glucose (mg/dL) 117 H 119 H (70-110) mg/dL Calcium (8.4-10.2) mg/dL Alkaline Phosphatase (38-126) U/L Total Protein (6.3-8.2) g/dL Albumin (3.5-5.0) g/dL 03/21/22 03/21/22 03/22/22 Range/Units 15:11 20:37 06:11 ABG pH (7.35-7.45) ABG pCO2 (35-45) mmHg ABG pO2 (83-108) mmHg ABG HCO3 (21-25) mmol/L ABG Total CO2 (19-24) mmol/L Carbon Dioxide 31 H (22-30) mmol/L BUN 42 H (9-20) mg/dL Creatinine 1.40 H (0.66-1.25) mg/dL Glucose 105 H (74-99) mg/dL POC Glucose (mg/dL) 124 H 145 H (70-110) mg/dL Calcium 8.3 L (8.4-10.2) mg/dL Alkaline Phosphatase 178 H (38-126) U/L Total Protein 6.0 L (6.3-8.2) g/dL Albumin 2.9 L (3.5-5.0) g/dL
--- NOTE | 2022-03-22 12:04 | CT ---
EXAMINATION TYPE: CT chest wo con DATE OF EXAM: 03/22/2022 INDICATION: Hypoxemia hypoxemia, CHF CT DLP: 506.5 mGy.cm Automated Exposure Control for Dose Reduction was Utilized. TECHNIQUE AND CONTRAST: CT scan of the chest without IV contrast administration. COMPARISON: CT dated 05/25/2014 FINDINGS: Advanced COPD changes, mainly involving the upper lobes and more on the right side. Associated extens nadiya pulmonary consolidation and alveolar opacities most evident involving the right lung and relative ly sparing the left lower lobe. This is suggestive of acute infection/pneumonia on top of the backgro und of COPD. Recommend clinical correlation and follow-up to complete resolution. Patent trachea and main bronchi. Small bilateral pleural effusions. Cardiomegaly. Coronary and arterial atherosclerotic calcifications . No pericardial effusion. Dilated pulmonary trunk measuring up to 4 cm, suggestive of pulmonary hype rtension. Subcentimeter mediastinal and hilar lymph nodes, possibly reactive. Previous cholecystectom y. Bulky spleen. Atrophic pancreas. Sternotomy wire sutures. Degenerative changes of the thoracic spi ne. Chronic unhealed fracture of the posterior aspect of the right first rib. IMPRESSION: Advanced COPD changes. Suspected associated extensive pulmonary infection as detailed above, please c orrelate clinically. Follow-up to complete resolution is advised. It is not possible to exclude assoc iated pulmonary edema. Other findings as described above.
[2022-03-22 17:10] LABS: Glucose,Whole Blood 270 mg/dL (70-110)
[2022-03-22 20:34] LABS: Glucose,Whole Blood 275 mg/dL (70-110)
[2022-03-22] MEDS ORDERED: HYDROCORTISONE 20 MG TAB PO SCH (21:00)
[2022-03-22] MEDS: QUEtiapine 50 MG TAB PO SCH (21:16)
[2022-03-23 06:28] LABS: Glucose,Whole Blood 265 mg/dL (70-110)
[2022-03-23] MEDS: INSULIN ASPART (NovoLOG) 100 UNIT/ML VIAL SQ SCH ×4 (06:42→20:38)
[2022-03-23] MEDS: MIDODRINE 5 MG TAB PO SCH ×3 (06:42→17:26)
[2022-03-23] MEDS: PANTOPRAZOLE 40 MG TABLET PO SCH (06:42)
[2022-03-23] MEDS ORDERED: INSULIN DETEMIR (LEVEMIR) 100 UNIT/ML SYR SQ SCH (07:00)
[2022-03-23] MEDS: IPRATROPIUM-ALBUTEROL 3 ML NEB INHALATION SCH ×4 (07:46→20:22)
[2022-03-23] MEDS: METOPROLOL TARTRATE 12.5 MG TAB PO SCH (08:49)
[2022-03-23] MEDS: ATORVASTATIN 40 MG TAB PO SCH (08:49)
[2022-03-23] MEDS: DOCUSATE 100 MG CAP PO SCH (08:49)
[2022-03-23] MEDS: methylPREDNISolone SOD SUCCI 40 MG/ML 1 ML VIAL IV SCH ×3 (08:49→23:39)
[2022-03-23] MEDS: FUROSEMIDE 40 MG TAB PO SCH ×2 (08:49→17:26)
[2022-03-23] MEDS: APIXABAN 5 MG TAB PO SCH ×2 (08:49→20:36)
[2022-03-23] MEDS: AMIODARONE 200 MG TAB PO SCH (08:49)
[2022-03-23] MEDS: CEFEPIME 2 GM in SODIUM CHLORIDE 0.9% 100 ML IVPB SCH ×2 (08:50→20:37)
[2022-03-23 09:57] LABS: Calcium 8.4 mg/dL (8.4-10.2); Potassium 3.5 mmol/L (3.5-5.1)
--- NOTE | 2022-03-23 10:55 | P.PN ---
Subjective Progress Note Date: 03/23/22 71-year-old male who presented to the emergency department on March 12, complaining of shortness of breath. The patient had shortness of breath about a day or so prior to admission. The patient complained about being fatigued. There was no chest pain or palpitations. He denied any cough or phlegm pro duction. No leg pain or leg swelling. The patient apparently denied any chest pain or chest discomfort. We were asked to see the patient today, for shortness of breath. Currently, he's on a 40% Venturi mask. His clinical picture is consistent with CHF. His BMP was elevated. He is on saline at KVO. I placed the patient on BiPAP at 12/5 and 40%, to see we can make him a bit more comfortable. I asked him whether or not he was any better, the same, or any worse since he was admitted. He stated about the same. I did speak to the nurse, Margaret about the patient. She thought the patient was relatively stable and has not deteriorated. The patient apparently has a history of atrial fibri llation, diabetes, GERD, hyperlipidemia, hypertension, myocardial infarction, chronic renal insufficiency, mild aortic stenosis, and possible COPD from previous tobacco use. The patient is also had heart catheterization with stent placement, and bypass grafting. White count 10.6, hemoglobin 9.5, hematocrit 31.2, and platelet count 355,000. Sodium 142, potassium 4.1, chlorides 105, CO2 25, anion gap 12, BUN 36, and creatinine 1.15. On admission, his N-terminal proBNP was 10,800. Chest x-ray in my opinion is consistent with fluid overload/CHF, and interstitial edema. The patient does have bilateral pleural effusions. Progress note dated 03/18/2022. 71-year-old male seen yesterday in consultation. Please see the note above. Today, the patient's feeling better. Yesterday, he was placed on BiPAP, with settings of 12/5 and 40%. Currently, he's using a 40% Venturi mask. I explained to the patient, they he could go back on BiPAP anytime he wishes. The BiPAP will be especially useful for his congestive heart failure. White count 10.9, hemoglobin 9.9, hematocrit 32.1, and platelet count 409,000. Sodium 139, potassium 3.4, chlorides 102, CO2 25, anion gap 12, BUN 35, and creatinine 1.30. Calcium is 8.3. Chest x-ray from March 17 is evaluated. Progress note dated 03/20/2022. 71-year-old male seen in consultation on the . The patient was admitted with a diagnosis of CHF. Because of worsening respiratory distress, we placed him on BiPAP, with settings of 12/5 and 40%. When not using BiPAP, the patient could use a 40% Venturi mask, or nasal cannula. Clinically, the patient's feeling much better. He has been receiving Lasix. No new labs today other than a glucose of 151. Chest x-ray from March 19, was reviewed already. on 03/21/2022, the patient is being seen for a follow-up. I reviewed the records. The patient has been in the hospital for almost a week complaining of shortness of breath and ongoing issues with hypoxic respiratory failure without any much improvement. This morning, the patient had based on oxygen with a 40% Ventimaskand he was still having labored breathing. He was still tachycardic and a heart rate seemed to be in flutter in the rate of 140.blood gases was done today that showed a combination of respiratory and metabolic alkalosis. The patient had a pH of 7.6 with a pCO2 of 31 and pO2 of 67. Note that the patient was being diuresed aggressively with diuresis with IV Lasix and the patient was responding knowing that his initial presentation was most consistent with CHF. Electrodes from today still pending. From yesterday, the serum bicarb was a 28 with a mean of 37 and a creatinine of 1.4.the patient remains in flutter rhythm. The patient is being considered forcardioversion following a NU and this will be done by cardiology. The patient has no lower extremity edema. No other new complaints otherwise for now. No angina. No palpitation. Chest x-ray still showing bilateral pulmonary infiltrates more so with a peripheral distribution. There is also crackles in lung bases bilaterally on today's examination. 03/22/2022, the patient is being seen for a follow-up. Note that the patient's is an acute hypoxic respiratory failure and the patient is currently on a 40% Ventimask. No improvement in oxygenation and repeat chest x-ray was done showing diffuse bilateral pulmonary infiltrates with no interval change compared to the earlier chest x-rays. Note that there is a diffuse reticular another interstitial pattern along with cardiomegaly. Obviously the initial concern that this was CHF. Nevertheless, possibility of an underlying infectious or postinfectious causes/ARDS cannot be completely ruled out. Based on that, I would suggest further investigation. The patient is afebrile. The patient is hemodynamically stable. On today's blood work, his BUN is 45 with a creatinine of 1.4 and sodium level is at 138 and the patient was switched to oral Lasix. Note that his initial proBNP level was quite elevated supporting the diagnosis of CHF. Nevertheless, the response to the diuretics was suboptimal. Also, the patient underwent cardioversion yesterday and his cardiac rhythm is back to sinus. He remains on anticoagulants. He is started on IV Rocephin 03/23/2022, the patient remains hypoxic with a 50% Ventimask. Further investigation was done and this included a CAT scan of the chest that was completed yesterday without contrast and the CAT scan showed extensive disease with diffuse bilateral pulmonary consolidation and alveolar opacities most evident in the right lung and the relatively sparing the left lower lobe and this is suggestive of an acute infectious pneumonia. Underlying CHF is doubtful. The patient has small bilateral pleural effusion and cardiomegaly. On examination, he does have some coarse crackles in the lung bases bilaterally. Note that these are of a new onset knowing that 3 weeks ago, his infiltrates were not present. The patient did not respond well to diuretics. His BUN is at 45 with a creatinine of 1.4 and the patient is currently on oral Lasix. I also discontinued the IV Rocephin and put the patient on cefepime 2 g every 12 hours and the patient is also on IV Solu-Medrol 40 mg every 8 hours. No interval worsening shortness of breath. He is unable to breathe through his nose and he prefers the Ventimask for now. On and off she is also using the BiPAP. His cardiac rhythm is NSR controlled rate and there is no rapid ventricular response post cardioversion. Objective - Vital Signs Vital signs: Vital Signs Temp 97.2 F L 03/23/22 08:00 Pulse 70 03/23/22 08:00 Resp 24 03/23/22 08:00 BP 113/58 03/23/22 08:00 Pulse Ox 96 03/23/22 08:00 FiO2 50 03/23/22 08:00 Intake & Output 03/22/22 03/23/22 03/23/22 18:59 06:59 18:59 Intake Total 450 480 Output Total 900 800 Balance -450 -800 480 Weight 96 kg Intake: Oral 450 480 Output: Urine 900 800 Other: Voiding Method Urinal Urinal # Bowel Movements 1 - Exam No acute distress, oriented 3. Sitting up in bed,, with a 40% Venturi mask in place. No conversational dyspnea or use of accessory muscles. Head exam was generally normal. There was no scleral icterus or corneal arcus. Mucous membranes were moist.. HEENT examination is grossly unremarkable. Neck supple. Full range of motion. No adenopathy thyromegaly or neck vein distention. Cardiovascular examination reveals regular rhythm rate. S1-S2 normal. No S3 or S4. No discernible murmur noted. tachycardic with a heart rate above 120 in an atrial flutter rhythm Lungs reveal scattered mild to moderate crackles and rhonchi. Breath sounds equal bilaterally. No wheezes. Currently using the ventilatory mask. Abdomen soft bowel sounds are heard. No masses or tenderness. Extremities are intact. No cyanosis clubbing or edema. Skin is without rash or lesion. Neurologic examination is brief but nonfocal. - Labs CBC & Chem 7: 03/19/22 07:57 03/23/22 08:42 Labs: Abnormal Lab Results - Last 24 Hours (Table) 03/22/22 03/22/22 03/22/22 Range/Units 11:42 17:05 20:32 BUN (9-20) mg/dL Creatinine (0.66-1.25) mg/dL Glucose (74-99) mg/dL POC Glucose (mg/dL) 129 H 270 H 275 H (70-110) mg/dL 03/23/22 03/23/22 Range/Units 06:26 08:42 BUN 45 H (9-20) mg/dL Creatinine 1.42 H (0.66-1.25) mg/dL Glucose 197 H (74-99) mg/dL POC Glucose (mg/dL) 265 H (70-110) mg/dL Assessment and Plan Plan: Shortness of breath, likely related to underlying CHF/pulmonary edema.the clinical presentation is typical for acute pulmonary edema/CHF. Nevertheless, the patient is relatively preserved LV function and the patient is assured responded to diuresis. The patient underwent cardioversion and this was successful cardioversion and the patient is currently on oral Lasix. Ne vertheless, the CAT scan of the chest showed extensive alveolar and interstitial infiltrates bilaterally and the patient continues to have coarse crackles. Rule out acute interstitial pneumonia. Rule out post viral ARDS. Pro calcitonin level was low at a time of admission. The presentation is not typical for a bacterial pneumonia. The patient is covered with IV steroids. The patient is also on IV cefepime. He remains on a 40% Ventimask. He is also on diuretics. He remains on long-term and to coagulation with Eliquis.. Acute hypoxic respiratory failure remains on 40% FiO2, Ventimask oxygenation is unchanged compared to yesterday History of chronic atrial fibrillation/atrial flutter. Anticoagulation with Eliquis History of CAD, status post bypass grafting, as well as heart catheterization with stent placement. History of CVA. Diabetes mellitus. History of myocardial infarction. Hypertension. Hyperlipidemia. History of possible COPD, secondary to prior tobacco use. Mild aortic stenosis. respiratory/metabolic alkalosis Plan Noncontrast CAT scan of the chest was noted and the findings are consistent with postinfectious changes, possible ARDS, possible acute interstitial pneumonia. Check YINA, and ANCA titers , RF, sed rate Check a Legionella urine antigen continue Solu-Medrol 40 mg every 12 hours The patient is post synchronized cardioversion Repeat electrolytes today is unchanged Continue oral Lasix 40 mg twice a day Monitor renal function IV fluids at KVO We'll keep the patient negative fluid balance Continue metoprolol 12.5 mg 3 times a day Continue amiodarone 200 mg by mouth twice a day Continue anticoagulation with Eliquis would like to discuss with cardiology the possibility of reducing the amiodarone dose and even discontinuing it to avoid any potential lung toxicity from the drug We'll continue to follow.
[2022-03-23] MEDS: SODIUM CHLORIDE 0.9% 1,000 ML IV SCH ×2 (11:24→14:42)
--- NOTE | 2022-03-23 11:26 | P.PN ---
Subjective Progress Note Date: 03/23/22 HISTORY OF PRESENT ILLNESS 71-year-old male who was recently admitted with CHF acute exacerbation also relative hypotension. Patient becoming more hypoxic requiring Ventimask with pulmonary following and being transitioned to BiPAP. Patient with extensive weakness and recommending continued PT/OT. Chest x-ray for today ordered and pending at this time. Patient is being followed by cardiology and pulmonary has been consulted. Patient is currently afebrile and denies chest pain or palpitations. Patient is tolerating diet with no reports of nausea or vomiting noted. Patient is afebrile. Patient is maintained on IV antibiotics in the form of ceftriaxone and will continue. Also recommend continue with breathing inhalational treatments and patient has been started on IV Solu-Cortef and will continue. Patient continues on midodrine for hypotension. Patient did receive a stat dose of IV Lasix today. 03/19/2022 Patient is seen and evaluated in follow-up on the selective care unit. He is currently resting comfortably in bed. Awake and alert in no acute distress. Patient is maintained on BiPAP 12/5 and 40% FiO2. Chest x-ray reveals persistent diffuse bilateral right greater than left reticular nodular infiltrates. Overall appearance is stable. Sputum culture revealed no growth. White count 7.7. Hemoglobin 8.8. Platelets 266. Sodium 137. Potassium 4.0. BUN 35. Creatinine 1.32. Glucose 119. He is continued on DuoNeb inhalations, Solu-Cortef, IV diuretics. Anticoagulated with Eliquis. Antibiotics in the form of ceftriaxone. 03/20/2022 Patient is seen and evaluated resting in bed; currently on 40% Ventimask; O2 saturation maintaining around 90%; BiPAP to be used as needed Vital signs are reviewed with temperature 97.9, pulse 122, respiration 22 and blood pressure of 95/61 with O2 saturation of 90% on an FiO2 of 40% Lab review shows sodium 136, potassium 3.2, BUN/creatinine of 37/1.41; blood glucoses ranging between 151-209 Patient remains in atrial flutter with RVR; cardiology is following with plans for possible NU cardioversion tomorrow morning Remains on Lasix 40 mg IV twice a day for CHF exacerbation; nephro on board for acute renal injury secondary to cardiorenal syndrome; creatinine remained stable at 1.3 03/21: Patient has been seen and followed by cardiology and pulmonary medicine. Patient is scheduled for cardioversion today. Patient states he is not feeling better today. No chest pain, palpitations, no significant shortness of breath at rest. He has been afebrile, heart rate in the 120s, blood pressure 91/52, pulse ox 90% on 40% Ventimask. Capillary blood glucose running between 119 and 300. ABGs pH 7.6, pCO2 31, pO2 67, sodium bicarb 30, total CO2 31, O2 saturation 95.1. Base excess 8.6. Patient is also followed by nephrology for acute kidney injury. 03/22: Yesterday, patient underwent successful NU and cardioversion and converted to sinus rhythm which is maintained. Patient is currently on a 40% Ventimask and unfortunately his pulse ox drops down to 85% without the Ventimask, maintaining at 91% with. Repeat chest x-ray reveals stable chest x- ray correlate for interstitial fibrosis with superimposed CHF or interstitial pneumonitis. Patient is followed closely by pulmonary medicine and patient started on cefepime, Solu-Medrol 40 mg IV every [address] of the chest ordered. Nephrology is following and recommending continuing current dose of Lasix which is 40 mg oral twice daily. 03/23: CAT scan of the chest revealed advanced COPD changes. Suspected associated extensive pulmonary infection correlate clinically. Follow complete resolution. Cannot exclude associated pulmonary edema. The patient was on BiPAP during the night and Ventimask during the day. Dr. Frank recommends continuing IV Solu-Medrol and cefepime. Daily while on IV steroids. YINA, ANCA titers are elevated and sed rate, Legionella ordered., Pulse ox 96% on Ventimask 50% FiO2. BUN 45 and creatinine 1.42. Capillary blood glucoses running 129 -275. Sputum culture finalized with normal respiratory ludy. REVIEW OF SYSTEMS Constitutional: No fever, no chills, no night sweats. No weight change. No weakness, fatigue or lethargy. No daytime sleepiness. EENT: No headache. No blurred vision or double vision, no loss of vision. No loss of Hearing, no ringing in the ears, no dizziness. No nasal drainage or congestion. No epistaxis. No sore throat. Lungs: Continued shortness of breath, cough, no sputum production. No wheezing. Cardiovascular: No chest pain, no lower extremity edema. No palpitations. No paroxysmal nocturnal dyspnea. No orthopnea. No lightheadedness or dizziness. No syncopal episodes. Abdominal: No abdominal pain. No nausea, vomiting. No diarrhea. No c onstipation. No bloody or tarry stools. No loss of appetite. Genitourinary: No dysuria, increased frequency, urgency. No urinary retention. Musculoskeletal: No myalgias. No muscle weakness, no gait dysfunction, no frequent falls. No back pain. No neck pain. Integumentary: No wounds, no lesions. No rash or pruritus. No unusual bruising. No change in hair or nails. Neurologic: No aphasia. No facial droop. No change in mentation. No head injury. No headache. No paralysis. No paresthesia. Psychiatric: No depression. No anxiety. No mood swings. Endocrine: No abnormal blood sugars. No weight change. No excessive sweating or thirst. No cold intolerance. PHYSICAL EXAMINATION Gen: This is a 71-year-old male, resting in bed and appears to be fairly comfortable. HEENT: Head is atraumatic, normocephalic. Pupils equal, round. Sclerae is anicteric. NECK: Supple. No JVD. No lymphadenopathy. No thyromegaly. LUNGS: Crackles bilateral bases. No intercostal retractions. HEART: Irregular rate and rhythm. Systolic murmur. ABDOMEN: Soft. Bowel sounds are present. No masses. No tenderness. EXTREMITIES: No pedal edema. No calf tenderness. NEUROLOGICAL: Patient is awake, alert and oriented x3. Cranial nerves 2 through 12 are grossly intact. ASSESSMENT AND PLAN 1. Persistent atrial flutter with RVR. Patient is seen and followed by cardiology with plan for cardioversion 03/21. Continue patient on eliquis 5 mg twice daily, Lopressor 12.5 mg 3 times daily, amiodarone 200 mg twice daily. 2. Acute on chronic diastolic heart failure. Continue patient on Lasix 40 mg twice daily. 3. Acute hypoxic respiratory failure secondary to underlying pneumonia, pulmonary medicine consult appreciated, patient started on cefepime 2 g IV piggyback every 12 hours and Solu-Medrol 40 mg IV every 8 hours, continue DuoNeb treatments 4 times daily and as needed.. 4. Acute kidney injury secondary to prerenal and cardiorenal syndrome. Patient is followed by nephrology with recommendations to continue Lasix twice daily, and Aranesp 40 units every week and monitor orthostatic changes. 5. Hyperlipidemia. Continue atorvastatin 40 mg daily. 6. Hypertension. 7. History of CVA or TIA. 8. Possible COPD. Continue DuoNeb treatments 4 times daily and as needed. 9. Mild aortic stenosis. 10. Coronary artery disease status post CABG and PCI 11. GI prophylaxis. 12. DVT prophylaxis. Eliquis 5 mg twice daily. 13. Obstructive sleep apnea with CPAP. 14. Recurrent depression. Continue Seroquel 50 mg at bedtime. 15. Hypotension. Patient was started on midodrine 10 mg 3 times daily. 16. Chronic kidney disease stage III. 17. Diabetes mellitus type 2. Levemir 10 units daily and NovoLog scale. DISCHARGE PLAN To be determined]. Impression and plan of care have been directed as dictated by the signing physician. Luci Farrar nurse practitioner acting as scribe for signing physician. Objective - Vital Signs Vital signs: Vital Signs Temp 97.2 F L 03/23/22 08:00 Pulse 70 03/23/22 08:00 Resp 24 03/23/22 08:00 BP 113/58 03/23/22 08:00 Pulse Ox 96 03/23/22 08:00 FiO2 50 03/23/22 08:00 Intake & Output 03/22/22 03/23/22 03/23/22 18:59 06:59 18:59 Intake Total 450 Output Total 900 800 Balance -450 -800 Weight 96 kg Intake: Oral 450 Output: Urine 900 800 Other: Voiding Method Urinal Urinal # Bowel Movements 1 - Labs CBC & Chem 7: 03/19/22 07:57 03/23/22 08:42 Labs: Abnormal Lab Results - Last 24 Hours (Table) 03/22/22 03/22/22 03/22/22 Range/Units 09:44 11:42 17:05 BUN 45 H (9-20) mg/dL Creatinine 1.47 H (0.66-1.25) mg/dL Glucose 124 H (74-99) mg/dL POC Glucose (mg/dL) 129 H 270 H (70-110) mg/dL Alkaline Phosphatase 165 H (38-126) U/L Total Protein 5.9 L (6.3-8.2) g/dL Albumin 2.8 L (3.5-5.0) g/dL 03/22/22 03/23/22 Range/Units 20:32 06:26 BUN (9-20) mg/dL Creatinine (0.66-1.25) mg/dL Glucose (74-99) mg/dL POC Glucose (mg/dL) 275 H 265 H (70-110) mg/dL Alkaline Phosphatase (38-126) U/L Total Protein (6.3-8.2) g/dL Albumin (3.5-5.0) g/dL
[2022-03-23 11:43] LABS: Glucose,Whole Blood 231 mg/dL (70-110)
[2022-03-23] MEDS: ALPRAZolam 0.25 MG TAB PO PRN (12:12)
[2022-03-23] MEDS: INSULIN DETEMIR (LEVEMIR) 100 UNIT/ML SYR SQ SCH (12:39)
--- NOTE | 2022-03-23 13:29 | P.PN ---
Subjective This is a 71-year-old male past medical history of coronary artery disease status post three-vessel CABG (VG-OM1, TINOCO-LAD, BRAD-RCA) in 1996, PCI to SVG to left circumflex in 2000, PCI proximal RCA in 1996 and proximal LAD in 2014, hypertension, dyslipidemia, type 2 diabetes, peripheral vascular disease, ischemic cardiomyopathy, long-standing persistent atrial fibrillation. Patient follows with Dr. Mcfarland. We're following patient for atrial flutter with RVR and congestive heart failure. He was admitted this time with progressive dyspnea and findings of CHF. He continues to be in atrial flutter with rapid ventricular response in spite of beta buck and amiodarone. He has been anticoagulated. His ejection fraction was 40-45%. Patient underwent NU cardioversion on 03/[address] Mcfarland. NU revealed: Dilated left atrium with normal appearance of the left atrial appendage, Normal in size with mild global hypokinesis, Aortic sclerosis with mild aortic regurgitation, Mitral annular calcification was mild to moderate mitral regurgi tation and mild tricuspid regurgitation, Mild to moderate atherosclerotic changes of the descending thoracic aorta, No shunting across the intra-atrial septum 03/23/2022 Patient seen and examined at bedside, he continues to be short of breath and hypoxic. No chest pain or palpitations. He is maintaining sinus mechanism heart rate 60s. He continues to be hypoxic. Remains on 50% Ventimask. CT chest revealed extensive pulmonary consolidation and alveolar opacities most evident involving the right lung and relatively sparing the left lower lobe. Suggestive of acute infection/pneumonia on top of the background of COPD. Vitals: Blood pressure 99/55, heart rate 73, afebrile, oxygen saturations 100% VentiMask GENERAL: Appears short of breath NECK: Supple without JVD or thyromegaly. LUNGS: Breath sounds brackles bilateral bases to auscultation bilaterally. Respiration equal and unlabored. No wheezes, rales or rhonchi. HEART: Regular rate and rhythm Systolic murmur at base, No rubs or gallops. S1 and S2 heard. EXTREMITIES: Normal range of motion, no edema. No clubbing or cyanosis. Peripheral pulses intact. ASSESSMENT Shortness of breath, likely multifactorial with underlying congestive heart failure, atrial flutter with RVR, and now with extensive interstitial infiltrates bilaterally Possible Acute respiratory distress syndrome Typical atrial flutter s/p cardioversion on 03/21 Long-standing persistent atrial fibrillation Symptoms of congestive heart failure with ejection fraction 40-45%, improved, worsened by the arrhythmia Coronary artery disease status post three-vessel CABG (VG-OM1, TINOCO-LAD, BRAD- RCA) in 1996, PCI to SVG to left circumflex in 2000, PCI proximal RCA in 1996 and proximal LAD in 2014 Hypertension Dyslipidemia Type 2 diabetes Peripheral vascular disease Ischemic cardiomyopathy PLAN Decrease amiodarone 200mg daily Metoprolol tartrate 25mg BID Continue Eliquis Continue statin PO Lasix 40mg BID Monitor renal function and electrolytes Further recommendations based on clinical course Nurse Practitioner note has been reviewed, I agree with a documented findings and plan of care. Patient was seen and examined. Objective - Vital Signs Vital signs: Vital Signs Temp 97.9 F 03/21/22 08:41 Pulse 126 H 03/21/22 08:41 Resp 22 03/21/22 08:41 BP 91/52 03/21/22 08:41 Pulse Ox 90 L 03/21/22 08:41 FiO2 40 03/21/22 08:41 Intake & Output 03/20/22 03/21/22 03/21/22 18:59 06:59 18:59 Output Total 900 1200 300 Balance -900 -1200 -300 Output: Urine 900 1200 300 Other: Voiding Method Indwelling Catheter Urinal Urinal # Bowel Movements 1 - Labs CBC & Chem 7: 03/19/22 07:57 03/23/22 08:42 Labs: Abnormal Lab Results - Last 24 Hours (Table) 03/20/22 03/20/22 03/20/22 Range/Units 11:47 13:03 16:24 Sodium 136 L (137-145) mmol/L Potassium 3.2 L (3.5-5.1) mmol/L BUN 37 H (9-20) mg/dL Creatinine 1.41 H (0.66-1.25) mg/dL Glucose 209 H (74-99) mg/dL POC Glucose (mg/dL) 151 H 279 H (70-110) mg/dL Calcium 8.1 L (8.4-10.2) mg/dL 03/20/22 03/21/22 Range/Units 19:47 06:03 Sodium (137-145) mmol/L Potassium (3.5-5.1) mmol/L BUN (9-20) mg/dL Creatinine (0.66-1.25) mg/dL Glucose (74-99) mg/dL POC Glucose (mg/dL) 300 H 190 H (70-110) mg/dL Calcium (8.4-10.2) mg/dL
[2022-03-23 16:40] LABS: Glucose,Whole Blood 325 mg/dL (70-110)
[2022-03-23 20:09] LABS: Glucose,Whole Blood 259 mg/dL (70-110)
[2022-03-23] MEDS: METOPROLOL TARTRATE 25 MG TAB PO SCH (20:36)
[2022-03-23] MEDS: QUEtiapine 50 MG TAB PO SCH (20:37)
--- NOTE | 2022-03-23 20:49 | PN ---
PROGRESS NOTE Patient is seen for followup for acute kidney injury. The patient is currently being diuresed. He is maintained on p.o. Lasix. His respiratory status remains about the same. No acute shortness of breath. This morning blood pressure was 113/58, heart rate 80 per minute. Patient is afebrile. Examination of the heart S1, S2. Examination of the lungs, bilateral breath sounds are heard. Abdomen is soft, nontender. Examination of lower extremities shows no evidence of edema. BASE FILLER exam grossly intact. LAB: Show sodium 139, potassium 3.5, BUN 45, creatinine 1.4. ASSESSMENT: 1. Acute kidney injury, nonoliguric, currently stable, cardiorenal. UA is quite benign from previous admission. No evidence of obstruction on imaging studies, CT scan. 2. 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 Baseline creatinine 1-1.1. 3. Atrial fibrillation with RVR currently with controlled ventricular response. 4. Adrenal insufficiency with very low cortisol level during last admission currently maintained on steroids. 5. Chronic systolic congestive heart failure, EF 40-45% with mild mitral and tricuspid regurgitation. 6. Acute hypoxic respiratory failure secondary to congestive heart failure versus ARDS, being followed by pulmonology. PLAN: Continue current dose of Lasix. Continue with midodrine and Solu-Medrol. MMODL / IJN: [id number] /
[2022-03-24 05:57] LABS: Glucose,Whole Blood 199 mg/dL (70-110)
[2022-03-24] MEDS: MIDODRINE 5 MG TAB PO SCH ×3 (06:20→17:23)
[2022-03-24] MEDS: INSULIN ASPART (NovoLOG) 100 UNIT/ML VIAL SQ SCH ×7 (06:24→20:52)
[2022-03-24] MEDS: INSULIN DETEMIR (LEVEMIR) 100 UNIT/ML SYR SQ SCH (06:24)
[2022-03-24] MEDS: PANTOPRAZOLE 40 MG TABLET PO SCH (06:25)
[2022-03-24] MEDS: IPRATROPIUM-ALBUTEROL 3 ML NEB INHALATION SCH ×4 (07:23→19:55)
[2022-03-24] MEDS: METOPROLOL TARTRATE 25 MG TAB PO SCH ×2 (08:09→20:51)
[2022-03-24] MEDS: DOCUSATE 100 MG CAP PO SCH (08:10)
[2022-03-24] MEDS: AMIODARONE 200 MG TAB PO SCH (08:10)
[2022-03-24] MEDS: CEFEPIME 2 GM in SODIUM CHLORIDE 0.9% 100 ML IVPB SCH ×2 (08:10→20:52)
[2022-03-24] MEDS: methylPREDNISolone SOD SUCCI 40 MG/ML 1 ML VIAL IV SCH ×3 (08:10→23:33)
[2022-03-24] MEDS: APIXABAN 5 MG TAB PO SCH ×2 (08:10→20:51)
[2022-03-24] MEDS: FUROSEMIDE 40 MG TAB PO SCH ×2 (08:10→16:35)
[2022-03-24] MEDS: ATORVASTATIN 40 MG TAB PO SCH (08:10)
[2022-03-24 08:44] LABS: Calcium 8.6 mg/dL (8.4-10.2); Potassium 3.7 mmol/L (3.5-5.1)
[2022-03-24] MEDS: ALPRAZolam 0.25 MG TAB PO PRN (09:14)
--- NOTE | 2022-03-24 11:24 | P.PN ---
Subjective This is a 71-year-old male past medical history of coronary artery disease status post three-vessel CABG (VG-OM1, TINOCO-LAD, BRAD-RCA) in 1996, PCI to SVG to left circumflex in 2000, PCI proximal RCA in 1996 and proximal LAD in 2014, hypertension, dyslipidemia, type 2 diabetes, peripheral vascular disease, ischemic cardiomyopathy, long-standing persistent atrial fibrillation. Patient follows with Dr. Mcfarland. We're following patient for atrial flutter with RVR and congestive heart failure. He was admitted this time with progressive dyspnea and findings of CHF. He continues to be in atrial flutter with rapid ventricular response in spite of beta buck and amiodarone. He has been anticoagulated. His ejection fraction was 40-45%. Patient underwent NU cardioversion on 03/[address] Mcfarland. NU revealed: Dilated left atrium with normal appearance of the left atrial appendage, Normal in size with mild global hypokinesis, Aortic sclerosis with mild aortic regurgitation, Mitral annular calcification was mild to moderate mitral regurgi tation and mild tricuspid regurgitation, Mild to moderate atherosclerotic changes of the descending thoracic aorta, No shunting across the intra-atrial septum 03/24/2022 Patient seen and examined at bedside, he continues to be hypoxic. He is feeling ok, no acute events overnight. No chest pain or palpitations. He is maintaining sinus mechanism on telemetry. Remains on 50% Ventimask. CT chest revealed extensive pulmonary consolidation and alveolar opacities most evident involving the right lung and relatively sparing the left lower lobe. Suggestive of acute infection/pneumonia on top of the background of COPD. Vitals: Blood /52, heart rate 60, afebrile, oxygen saturations 100% VentiMask GENERAL: Hypoxic on Venti mask. NECK: Supple without JVD or thyromegaly. LUNGS: Breath sounds crackles bilateral bases to auscultation bilaterally. Respiration equal and unlabored. No wheezes, rales or rhonchi. HEART: Regular rate and rhythm Systolic murmur at base, No rubs or gallops. S1 and S2 heard. EXTREMITIES: Normal range of motion, no edema. No clubbing or cyanosis. Peripheral pulses intact. ASSESSMENT Shortness of breath, likely multifactorial with underlying congestive heart failure, atrial flutter with RVR, and now with extensive interstitial in filtrates bilaterally Possible Acute respiratory distress syndrome Typical atrial flutter s/p cardioversion on 03/21 Long-standing persistent atrial fibrillation Symptoms of congestive heart failure with ejection fraction 40-45%, improved, worsened by the arrhythmia Coronary artery disease status post three-vessel CABG (VG-OM1, TINOCO-LAD, BRAD- RCA) in 1996, PCI to SVG to left circumflex in 2000, PCI proximal RCA in 1996 and proximal LAD in 2014 Hypertension Dyslipidemia Type 2 diabetes Peripheral vascular disease Ischemic cardiomyopathy PLAN Amiodarone decreased yesterday to 200mg daily Metoprolol tartrate 25mg BID Continue Eliquis Continue statin PO Lasix 40mg BID No further changes from a cardiology perspective Pulmonary following Further recommendations based on clinical course Nurse Practitioner note has been reviewed, I agree with a documented findings and plan of care. Patient was seen and examined. Objective - Vital Signs Vital signs: Vital Signs Temp 97.7 F 03/24/22 08:00 Pulse 62 03/24/22 11:18 Resp 18 03/24/22 08:00 BP 112/52 03/24/22 08:00 Pulse Ox 100 03/24/22 11:18 FiO2 50 03/24/22 11:18 Intake & Output 03/23/22 03/24/22 03/24/22 18:59 06:59 18:59 Intake Total 480 340 200 Output Total 750 250 Balance 480 -410 -50 Intake: Intake, IV Titration 100 Amount Cefepime 2 gm In Sodium 100 Chloride 0.9% 100 ml @ 25 mls/hr IVPB Q12HR [facility] Rx #:[id number] Oral 480 240 200 Output: Urine 750 250 Other: Voiding Method Urinal Urinal Urinal # Voids 3 - Labs CBC & Chem 7: 03/19/22 07:57 03/24/22 07:30 Labs: Abnormal Lab Results - Last 24 Hours (Table) 03/23/22 03/23/22 03/23/22 Range/Units 08:42 11:41 16:37 ESR 82 H (0-15) mm/hr BUN (9-20) mg/dL Creatinine (0.66-1.25) mg/dL Glucose (74-99) mg/dL POC Glucose (mg/dL) 231 H 325 H (70-110) mg/dL 03/23/22 03/24/22 03/24/22 Range/Units 20:07 05:56 07:30 ESR (0-15) mm/hr BUN 45 H (9-20) mg/dL Creatinine 1.39 H (0.66-1.25) mg/dL Glucose 208 H (74-99) mg/dL POC Glucose (mg/dL) 259 H 199 H (70-110) mg/dL
--- NOTE | 2022-03-24 11:36 | P.PN ---
Subjective Progress Note Date: 03/24/22 HISTORY OF PRESENT ILLNESS 71-year-old male who was recently admitted with CHF acute exacerbation also relative hypotension. Patient becoming more hypoxic requiring Ventimask with pulmonary following and being transitioned to BiPAP. Patient with extensive weakness and recommending continued PT/OT. Chest x-ray for today ordered and pending at this time. Patient is being followed by cardiology and pulmonary has been consulted. Patient is currently afebrile and denies chest pain or palpitations. Patient is tolerating diet with no reports of nausea or vomiting noted. Patient is afebrile. Patient is maintained on IV antibiotics in the form of ceftriaxone and will continue. Also recommend continue with breathing inhalational treatments and patient has been started on IV Solu-Cortef and will continue. Patient continues on midodrine for hypotension. Patient did receive a stat dose of IV Lasix today. 03/19/2022 Patient is seen and evaluated in follow-up on the selective care unit. He is currently resting comfortably in bed. Awake and alert in no acute distress. Patient is maintained on BiPAP 12/5 and 40% FiO2. Chest x-ray reveals persistent diffuse bilateral right greater than left reticular nodular infiltrates. Overall appearance is stable. Sputum culture revealed no growth. White count 7.7. Hemoglobin 8.8. Platelets 266. Sodium 137. Potassium 4.0. BUN 35. Creatinine 1.32. Glucose 119. He is continued on DuoNeb inhalations, Solu-Cortef, IV diuretics. Anticoagulated with Eliquis. Antibiotics in the form of ceftriaxone. 03/20/2022 Patient is seen and evaluated resting in bed; currently on 40% Ventimask; O2 saturation maintaining around 90%; BiPAP to be used as needed Vital signs are reviewed with temperature 97.9, pulse 122, respiration 22 and blood pressure of 95/61 with O2 saturation of 90% on an FiO2 of 40% Lab review shows sodium 136, potassium 3.2, BUN/creatinine of 37/1.41; blood glucoses ranging between 151-209 Patient remains in atrial flutter with RVR; cardiology is following with plans for possible NU cardioversion tomorrow morning Remains on Lasix 40 mg IV twice a day for CHF exacerbation; nephro on board for acute renal injury secondary to cardiorenal syndrome; creatinine remained stable at 1.3 03/21: Patient has been seen and followed by cardiology and pulmonary medicine. Patient is scheduled for cardioversion today. Patient states he is not feeling better today. No chest pain, palpitations, no significant shortness of breath at rest. He has been afebrile, heart rate in the 120s, blood pressure 91/52, pulse ox 90% on 40% Ventimask. Capillary blood glucose running between 119 and 300. ABGs pH 7.6, pCO2 31, pO2 67, sodium bicarb 30, total CO2 31, O2 saturation 95.1. Base excess 8.6. Patient is also followed by nephrology for acute kidney injury. 03/22: Yesterday, patient underwent successful NU and cardioversion and converted to sinus rhythm which is maintained. Patient is currently on a 40% Ventimask and unfortunately his pulse ox drops down to 85% without the Ventimask, maintaining at 91% with. Repeat chest x-ray reveals stable chest x- ray correlate for interstitial fibrosis with superimposed CHF or interstitial pneumonitis. Patient is followed closely by pulmonary medicine and patient started on cefepime, Solu-Medrol 40 mg IV every [address] of the chest ordered. Nephrology is following and recommending continuing current dose of Lasix which is 40 mg oral twice daily. 03/23: CAT scan of the chest revealed advanced COPD changes. Suspected associated extensive pulmonary infection correlate clinically. Follow complete resolution. Cannot exclude associated pulmonary edema. The patient was on BiPAP during the night and Ventimask during the day. Dr. Frank recommends continuing IV Solu-Medrol and cefepime. Daily while on IV steroids. YINA, ANCA titers are elevated and sed rate, Legionella ordered., Pulse ox 96% on Ventimask 50% FiO2. BUN 45 and creatinine 1.42. Capillary blood glucoses running 129 -275. Sputum culture finalized with normal respiratory ludy. 03/24: Again today, patient is on Ventimask. Ask if nursing can follow-up with pulmonary medicine regarding level of pulse ox is necessary for this patient. Patient made do fairly well with a lower pulse ox:. Cardiology is following as well as pulmonary medicine and nephrology. Nephrology is planning to continue current dose of Lasix midodrine and Solu-Medrol. He is currently on oral Lasix, Solu-Medrol at 40 mg every 8 hours, DuoNeb treatments 4 times daily and as needed, cefepime 2 g every 12 hours IV piggyback. Once oxygen levels are lower, patient will be discharged. Capillary blood glucose running between 199 and 325. BUN 45 creatinine 1.39. Scheduled NovoLog added to her regime.. REVIEW OF SYSTEMS Constitutional: No fever, no chills, no night sweats. No weight change. No weakness, fatigue or lethargy. No daytime sleepiness. EENT: No headache. No blurred vision or double vision, no loss of vision. No loss of Hearing, no ringing in the ears, no dizziness. No nasal drainage or congestion. No epistaxis. No sore throat. Lungs: Continued shortness of breath, cough, no sputum production. No wheezing. Cardiovascular: No chest pain, no lower extremity edema. No palpitations. No paroxysmal nocturnal dyspnea. No orthopnea. No lightheadedness or dizziness. No syncopal episodes. Abdominal: No abdominal pain. No nausea, vomiting. No diarrhea. No constipation. No bloody or tarry stools. No loss of appetite. Genitourinary: No dysuria, increased frequency, urgency. No urinary retention. Musculoskeletal: No myalgias. No muscle weakness, no gait dysfunction, no frequent falls. No back pain. No neck pain. Integumentary: No wounds, no lesions. No rash or pruritus. No unusual bruising. No change in hair or nails. Neurologic: No aphasia. No facial droop. No change in mentation. No head injury. No headache. No paralysis. No paresthesia. Psychiatric: No depression. No anxiety. No mood swings. Endocrine: No abnormal blood sugars. No weight change. No excessive sweating or thirst. No cold intolerance. PHYSICAL EXAMINATION Gen: This is a 71-year-old male, resting in bed and appears to be bon rly comfortable. HEENT: Head is atraumatic, normocephalic. Pupils equal, round. Sclerae is anicteric. NECK: Supple. No JVD. No lymphadenopathy. No thyromegaly. LUNGS: Crackles bilateral bases. No intercostal retractions. HEART: Irregular rate and rhythm. Systolic murmur. ABDOMEN: Soft. Bowel sounds are present. No masses. No tenderness. EXTREMITIES: No pedal edema. No calf tenderness. NEUROLOGICAL: Patient is awake, alert and oriented x3. Cranial nerves 2 through 12 are grossly intact. ASSESSMENT AND PLAN 1. Persistent atrial flutter with RVR. Patient is seen and followed by cardiology with plan for cardioversion 03/21. Continue patient on eliquis 5 mg twice daily, Lopressor 25 mg 3 times daily, amiodarone 200 mg twice daily. 2. Acute on chronic diastolic heart failure. Continue patient on Lasix 40 mg twice daily. 3. Acute hypoxic hypoxic respiratory failure secondary to underlying pneumonia, pulmonary medicine consult appreciated, patient started on cefepime 2 g IV piggyback every 12 hours and Solu-Medrol 40 mg IV every 8 hours, continue DuoNeb treatments 4 times daily and as needed.. 4. Acute kidney injury secondary to prerenal and cardiorenal syndrome. Patient is followed by nephrology with recommendations to continue Lasix twice daily, and Aranesp 40 units every week and monitor orthostatic changes. 5. Hyperlipidemia. Continue atorvastatin 40 mg daily. 6. Hypertension. 7. History of CVA or TIA. 8. Possible COPD. Continue DuoNeb treatments 4 times daily and as needed. 9. Mild aortic stenosis. 10. Coronary artery disease status post CABG and PCI 11. GI prophylaxis. 12. DVT prophylaxis. Eliquis 5 mg twice daily. 13. Obstructive sleep apnea with CPAP. 14. Recurrent depression. Continue Seroquel 50 mg at bedtime. 15. Hypotension. Patient was started on midodrine 10 mg 3 times daily. 16. Chronic kidney disease stage III. 17. Diabetes mellitus type 2. Levemir 10 units daily and NovoLog scale, NovoLog 5 units with meals and at bedtime added. DISCHARGE PLAN Home with [facility]. Impression and plan of care have been directed as dictated by the signing erika sidhu. Luci Farrar nurse practitioner acting as scribe for signing physician. Objective - Vital Signs Vital signs: Vital Signs Temp 97.7 F 03/24/22 08:00 Pulse 60 03/24/22 08:00 Resp 18 03/24/22 08:00 BP 112/52 03/24/22 08:00 Pulse Ox 95 03/24/22 08:00 FiO2 50 03/24/22 08:00 Intake & Output 03/23/22 03/24/22 03/24/22 18:59 06:59 18:59 Intake Total 480 340 Output Total 750 250 Balance 480 -410 -250 Intake: Intake, IV Titration 100 Amount Cefepime 2 gm In Sodium 100 Chloride 0.9% 100 ml @ 25 mls/hr IVPB Q12HR [facility] Rx #:[id number] Oral 480 240 Output: Urine 750 250 Other: Voiding Method Urinal Urinal # Voids 3 - Labs CBC & Chem 7: 03/19/22 07:57 03/24/22 07:30 Labs: Abnormal Lab Results - Last 24 Hours (Table) 03/23/22 03/23/22 03/23/22 Range/Units 08:42 08:42 11:41 ESR 82 H (0-15) mm/hr BUN 45 H (9-20) mg/dL Creatinine 1.42 H (0.66-1.25) mg/dL Glucose 197 H (74-99) mg/dL POC Glucose (mg/dL) 231 H (70-110) mg/dL 03/23/22 03/23/22 03/24/22 Range/Units 16:37 20:07 05:56 ESR (0-15) mm/hr BUN (9-20) mg/dL Creatinine (0.66-1.25) mg/dL Glucose (74-99) mg/dL POC Glucose (mg/dL) 325 H 259 H 199 H (70-110) mg/dL 03/24/22 Range/Units 07:30 ESR (0-15) mm/hr BUN 45 H (9-20) mg/dL Creatinine 1.39 H (0.66-1.25) mg/dL Glucose 208 H (74-99) mg/dL POC Glucose (mg/dL) (70-110) mg/dL
[2022-03-24 12:11] LABS: Glucose,Whole Blood 178 mg/dL (70-110)
--- NOTE | 2022-03-24 13:02 | P.PN ---
Subjective Patient is seen for follow-up for acute kidney injury mostly cardiorenal. He is currently maintained on oral Lasix. Serum creatinine staying at about 1.4 mg/dL Previous creatinine has been around 1.0 1.1 mg/dL with history of CK D stage 2- 3 a secondary to nephrosclerosis 24-hour urine output documented at 1700 mL Blood pressure remains on the lower side Patient is maintained on Solu-Medrol. He has underlying adrenal insufficiency and maintained on Cortef prior to admission No significant complaints today. Objective - Vital Signs Vital signs: Vital Signs Temp 97.5 F L 03/24/22 12:41 Pulse 58 L 03/24/22 12:41 Resp 21 03/24/22 12:41 BP 104/51 03/24/22 12:41 Pulse Ox 96 03/24/22 12:41 FiO2 50 03/24/22 11:18 Intake & Output 03/23/22 03/24/22 03/24/22 18:59 06:59 18:59 Intake Total 480 340 200 Output Total 750 250 Balance 480 -410 -50 Intake: Intake, IV Titration 100 Amount Cefepime 2 gm In Sodium 100 Chloride 0.9% 100 ml @ 25 mls/hr IVPB Q12HR [facility] Rx #:[id number] Oral 480 240 200 Output: Urine 750 250 Other: Voiding Method Urinal Urinal Urinal # Voids 3 1 - Exam Patient is awake, comfortable, not in any acute distress Examination of the heart S1 and S2 Examination of lungs bilateral breath sounds are heard Abdomen is soft nontender Examination of lower extremities shows no significant edema [employer] exam grossly intact - Labs CBC & Chem 7: 03/19/22 07:57 03/24/22 07:30 Labs: Abnormal Lab Results - Last 24 Hours (Table) 03/23/22 03/23/22 03/23/22 Range/Units 08:42 16:37 20:07 ESR 82 H (0-15) mm/hr BUN (9-20) mg/dL Creatinine (0.66-1.25) mg/dL Glucose (74-99) mg/dL POC Glucose (mg/dL) 325 H 259 H (70-110) mg/dL 03/24/22 03/24/22 03/24/22 Range/Units 05:56 07:30 12:09 ESR (0-15) mm/hr BUN 45 H (9-20) mg/dL Creatinine 1.39 H (0.66-1.25) mg/dL Glucose 208 H (74-99) mg/dL POC Glucose (mg/dL) 199 H 178 H (70-110) mg/dL Assessment and Plan Assessment: 1. Acute kidney injury associated with hypoperfusion and cardiorenal. Renal function currently stable with creatinine 1.4. UA is benign from his last a dmission. No evidence of obstruction on CT scan 2. CK D stage II/3b secondary to nephrosclerosis with baseline creatinine 1-1.1 3. A. fib with RVR 4. Anemia of chronic disease, iron replete 5. Adrenal insufficiency with low cortisol level last admission currently maintained on Solu-Medrol. Patient was on Cortef during his last admission 6. Chronic systolic CHF. Ejection fraction 40-45% with mild to mitral and tricuspid regurgitation 7. Acute hypoxic respiratory failure, etiology CHF versus underlying ARDS. Being followed by pulmonology Plan: Continue current dose of Lasix Monitor electrolytes
[2022-03-24 13:57] LABS: C-ANCA <1:20 Titer (<1:20)
[2022-03-24] MEDS: SODIUM CHLORIDE 0.9% 1,000 ML IV SCH ×2 (14:44)
--- NOTE | 2022-03-24 15:06 | P.PN ---
Subjective Progress Note Date: 03/24/22 71-year-old male who presented to the emergency department on March 12, complaining of shortness of breath. The patient had shortness of breath about a day or so prior to admission. The patient complained about being fatigued. There was no chest pain or palpitations. He denied any cough or phlegm pro duction. No leg pain or leg swelling. The patient apparently denied any chest pain or chest discomfort. We were asked to see the patient today, for shortness of breath. Currently, he's on a 40% Venturi mask. His clinical picture is consistent with CHF. His BMP was elevated. He is on saline at KVO. I placed the patient on BiPAP at 12/5 and 40%, to see we can make him a bit more comfortable. I asked him whether or not he was any better, the same, or any worse since he was admitted. He stated about the same. I did speak to the nurse, Margaret about the patient. She thought the patient was relatively stable and has not deteriorated. The patient apparently has a history of atrial fibri llation, diabetes, GERD, hyperlipidemia, hypertension, myocardial infarction, chronic renal insufficiency, mild aortic stenosis, and possible COPD from previous tobacco use. The patient is also had heart catheterization with stent placement, and bypass grafting. White count 10.6, hemoglobin 9.5, hematocrit 31.2, and platelet count 355,000. Sodium 142, potassium 4.1, chlorides 105, CO2 25, anion gap 12, BUN 36, and creatinine 1.15. On admission, his N-terminal proBNP was 10,800. Chest x-ray in my opinion is consistent with fluid overload/CHF, and interstitial edema. The patient does have bilateral pleural effusions. Progress note dated 03/18/2022. 71-year-old male seen yesterday in consultation. Please see the note above. Today, the patient's feeling better. Yesterday, he was placed on BiPAP, with settings of 12/5 and 40%. Currently, he's using a 40% Venturi mask. I explained to the patient, they he could go back on BiPAP anytime he wishes. The BiPAP will be especially useful for his congestive heart failure. White count 10.9, hemoglobin 9.9, hematocrit 32.1, and platelet count 409,000. Sodium 139, potassium 3.4, chlorides 102, CO2 25, anion gap 12, BUN 35, and creatinine 1.30. Calcium is 8.3. Chest x-ray from March 17 is evaluated. Progress note dated 03/20/2022. 71-year-old male seen in consultation on the . The patient was admitted with a diagnosis of CHF. Because of worsening respiratory distress, we placed him on BiPAP, with settings of 12/5 and 40%. When not using BiPAP, the patient could use a 40% Venturi mask, or nasal cannula. Clinically, the patient's feeling much better. He has been receiving Lasix. No new labs today other than a glucose of 151. Chest x-ray from March 19, was reviewed already. on 03/21/2022, the patient is being seen for a follow-up. I reviewed the records. The patient has been in the hospital for almost a week complaining of shortness of breath and ongoing issues with hypoxic respiratory failure without any much improvement. This morning, the patient had based on oxygen with a 40% Ventimaskand he was still having labored breathing. He was still tachycardic and a heart rate seemed to be in flutter in the rate of 140.blood gases was done today that showed a combination of respiratory and metabolic alkalosis. The patient had a pH of 7.6 with a pCO2 of 31 and pO2 of 67. Note that the patient was being diuresed aggressively with diuresis with IV Lasix and the patient was responding knowing that his initial presentation was most consistent with CHF. Electrodes from today still pending. From yesterday, the serum bicarb was a 28 with a mean of 37 and a creatinine of 1.4.the patient remains in flutter rhythm. The patient is being considered forcardioversion following a NU and this will be done by cardiology. The patient has no lower extremity edema. No other new complaints otherwise for now. No angina. No palpitation. Chest x-ray still showing bilateral pulmonary infiltrates more so with a peripheral distribution. There is also crackles in lung bases bilaterally on today's examination. 03/22/2022, the patient is being seen for a follow-up. Note that the patient's is an acute hypoxic respiratory failure and the patient is currently on a 40% Ventimask. No improvement in oxygenation and repeat chest x-ray was done showing diffuse bilateral pulmonary infiltrates with no interval change compared to the earlier chest x-rays. Note that there is a diffuse reticular another interstitial pattern along with cardiomegaly. Obviously the initial concern that this was CHF. Nevertheless, possibility of an underlying infectious or postinfectious causes/ARDS cannot be completely ruled out. Based on that, I would suggest further investigation. The patient is afebrile. The patient is hemodynamically stable. On today's blood work, his BUN is 45 with a creatinine of 1.4 and sodium level is at 138 and the patient was switched to oral Lasix. Note that his initial proBNP level was quite elevated supporting the diagnosis of CHF. Nevertheless, the response to the diuretics was suboptimal. Also, the patient underwent cardioversion yesterday and his cardiac rhythm is back to sinus. He remains on anticoagulants. He is started on IV Rocephin 03/23/2022, the patient remains hypoxic with a 50% Ventimask. Further investigation was done and this included a CAT scan of the chest that was completed yesterday without contrast and the CAT scan showed extensive disease with diffuse bilateral pulmonary consolidation and alveolar opacities most evident in the right lung and the relatively sparing the left lower lobe and this is suggestive of an acute infectious pneumonia. Underlying CHF is doubtful. The patient has small bilateral pleural effusion and cardiomegaly. On examination, he does have some coarse crackles in the lung bases bilaterally. Note that these are of a new onset knowing that 3 weeks ago, his infiltrates were not present. The patient did not respond well to diuretics. His BUN is at 45 with a creatinine of 1.4 and the patient is currently on oral Lasix. I also discontinued the IV Rocephin and put the patient on cefepime 2 g every 12 hours and the patient is also on IV Solu-Medrol 40 mg every 8 hours. No interval worsening shortness of breath. He is unable to breathe through his nose and he prefers the Ventimask for now. On and off she is also using the BiPAP. His cardiac rhythm is NSR controlled rate and there is no rapid ventricular response post cardioversion. 03/24/2022, the patient is feeling well. The patient remains on a 50% Ventimask and he prefers to be on a Ventimask as the patient is unable to take oxygen through his nostrils. No significant chest pain. He feels less short of breath compared to yesterday. Pulse ox is in the high 90s for now. He remains on IV cefepime. He remains on IV Solu-Medrol. No fever. No chills. No sweats. No other new complaints otherwise. His cardiac rhythm remains sinus and the patient is currently on oral amiodarone and the patient is also on Eliquis 5 mg by mouth twice a day.blood work from today includes electrolytes and the patient's creatinine is stable at 1.35 with a mean of 45 and his sodium level of 141. His connective tissue disease workup thus far has been negative. Legionella urine antigen was also negative. Objective - Vital Signs Vital signs: Vital Signs Temp 97.5 F L 03/24/22 12:41 Pulse 58 L 03/24/22 12:41 Resp 21 03/24/22 12:41 BP 104/51 03/24/22 12:41 Pulse Ox 96 03/24/22 12:41 FiO2 50 03/24/22 11:18 Intake & Output 03/23/22 03/24/22 03/24/22 18:59 06:59 18:59 Intake Total 480 340 200 Output Total 750 250 Balance 480 -410 -50 Weight 96 kg Intake: Intake, IV Titration 100 Amount Cefepime 2 gm In Sodium 100 Chloride 0.9% 100 ml @ 25 mls/hr IVPB Q12HR [facility] Rx #:[id number] Oral 480 240 200 Output: Urine 750 250 Other: Voiding Method Urinal Urinal Urinal # Voids 3 1 - Exam No acute distress, oriented 3. Sitting up in bed,, with a 40% Venturi mask in place. No conversational dyspnea or use of accessory muscles. Head exam was generally normal. There was no scleral icterus or corneal arcus. Mucous membranes were moist.. HEENT examination is grossly unremarkable. Neck supple. Full range of motion. No adenopathy thyromegaly or neck vein distention. Cardiovascular examination reveals regular rhythm rate. S1-S2 normal. No S3 or S4. No discernible murmur noted. tachycardic with a heart rate above 120 in an atrial flutter rhythm Lungs reveal scattered mild to moderate crackles and rhonchi. Breath sounds equal bilaterally. No wheezes. Currently using the ventilatory mask. Abdomen soft bowel sounds are heard. No masses or tenderness. Extremities are intact. No cyanosis clubbing or edema. Skin is without rash or lesion. Neurologic examination is brief but nonfocal. - Labs CBC & Chem 7: 03/19/22 07:57 03/24/22 07:30 Labs: Abnormal Lab Results - Last 24 Hours (Table) 03/23/22 03/23/22 03/24/22 Range/Units 16:37 20:07 05:56 BUN (9-20) mg/dL Creatinine (0.66-1.25) mg/dL Glucose (74-99) mg/dL POC Glucose (mg/dL) 325 H 259 H 199 H (70-110) mg/dL 03/24/22 03/24/22 Range/Units 07:30 12:09 BUN 45 H (9-20) mg/dL Creatinine 1.39 H (0.66-1.25) mg/dL Glucose 208 H (74-99) mg/dL POC Glucose (mg/dL) 178 H (70-110) mg/dL Assessment and Plan Plan: Shortness of breath, likely related to underlying CHF/pulmonary edema.the clinical presentation is typical for acute pulmonary edema/CHF. Nevertheless, the patient is relatively preserved LV function and the patient is assured responded to diuresis. The patient underwent cardioversion and this was successful cardioversion and the patient is currently on oral Lasix. Neverthele ss, the CAT scan of the chest showed extensive alveolar and interstitial infiltrates bilaterally and the patient continues to have coarse crackles. Rule out acute interstitial pneumonia. Rule out post viral ARDS. Pro calcitonin level was low at a time of admission. The presentation is not typical for a bacterial pneumonia. The patient is covered with IV steroids. The patient is also on IV cefepime. He remains on a 0% Ventimask. He is also on diuretics. He remains on long-term and to coagulation with Eliquis.. on today's evaluation, the patient is clinically improved and he feels better and is less short of breath. We'll gradually wean down his FiO2 and wean it down to maintain a saturation above 90%. Acute hypoxic respiratory failure remains on 50% FiO2, Ventimask oxygenation is unchanged compared to yesterday History of chronic atrial fibrillation/atrial flutter. Anticoagulation with Eliquis History of CAD, status post bypass grafting, as well as heart catheterization wi stent placement. History of CVA. Diabetes mellitus. History of myocardial infarction. Hypertension. Hyperlipidemia. History of possible COPD, secondary to prior tobacco use. Mild aortic stenosis. respiratory/metabolic alkalosis Plan clinically feeling better and the patient will be gradually weaned down to 40% and later on to 35% Ventimask Noncontrast CAT scan of the chest was noted and the findings are consistent with postinfectious changes, possible ARDS, possible acute interstitial pneumonia. Check YINA, and ANCA titers , RF, sed rateand the connective tissue disease markers were negative Check a Legionella urine antigen, Legionella urine antigen was also negative continue Solu-Medrol 40 mg every 12 hours The patient is post synchronized cardioversion Repeat electrolytes today is unchanged Continue oral Lasix 40 mg twice a day Monitor renal function, renal function is stable IV fluids at KVO We'll keep the patient negative fluid balance Continue metoprolol 12.5 mg 3 times a day Continue amiodarone 200 mg by mouth twice a day Continue anticoagulation with Eliquis would like to discuss with cardiology the possibility of reducing the amiodarone dose and even discontinuing it to avoid any potential lung toxicity from the drug We'll continue to follow.
[2022-03-24 17:12] LABS: Glucose,Whole Blood 163 mg/dL (70-110)
[2022-03-24 20:47] LABS: Glucose,Whole Blood 177 mg/dL (70-110)
[2022-03-24] MEDS: QUEtiapine 50 MG TAB PO SCH (20:51)
[2022-03-25 07:33] LABS: Glucose,Whole Blood 255 mg/dL (70-110)
[2022-03-25] MEDS: IPRATROPIUM-ALBUTEROL 3 ML NEB INHALATION SCH ×4 (07:39→18:36)
[2022-03-25] MEDS: DARBEPOETIN ALFA 40 MCG/0.4 ML SYRINGE SQ SCH (08:13)
[2022-03-25] MEDS: methylPREDNISolone SOD SUCCI 40 MG/ML 1 ML VIAL IV SCH ×3 (08:14→23:21)
[2022-03-25] MEDS: APIXABAN 5 MG TAB PO SCH ×2 (08:14→20:39)
[2022-03-25] MEDS: PANTOPRAZOLE 40 MG TABLET PO SCH (08:14)
[2022-03-25] MEDS: MIDODRINE 5 MG TAB PO SCH ×3 (08:15→17:20)
[2022-03-25] MEDS: AMIODARONE 200 MG TAB PO SCH (08:15)
[2022-03-25] MEDS: DOCUSATE 100 MG CAP PO SCH (08:15)
[2022-03-25] MEDS: ATORVASTATIN 40 MG TAB PO SCH (08:15)
[2022-03-25] MEDS: METOPROLOL TARTRATE 25 MG TAB PO SCH ×2 (08:15→20:39)
[2022-03-25] MEDS: FUROSEMIDE 40 MG TAB PO SCH ×2 (08:15→16:30)
[2022-03-25] MEDS: INSULIN DETEMIR (LEVEMIR) 100 UNIT/ML SYR SQ SCH (08:16)
[2022-03-25] MEDS: CEFEPIME 2 GM in SODIUM CHLORIDE 0.9% 100 ML IVPB SCH ×2 (08:16→20:39)
[2022-03-25] MEDS: INSULIN ASPART (NovoLOG) 100 UNIT/ML VIAL SQ SCH ×8 (08:17→21:36)
[2022-03-25 08:55] LABS: Calcium 8.3 mg/dL (8.4-10.2); Potassium 3.6 mmol/L (3.5-5.1)
--- NOTE | 2022-03-25 08:58 | XR ---
EXAMINATION TYPE: XR chest 1V portable DATE OF EXAM: 03/25/2022 COMPARISON: 03/22/2022 HISTORY: Shortness of breath TECHNIQUE: Single frontal view of the chest is obtained. FINDINGS: There is a diffuse reticular interstitial pattern. Cardiomegaly with postsurgical changes. Suspect underlying COPD. Small bilateral pleural effusions. Some of the sternotomy wires appear to b e disrupted. IMPRESSION: Diffuse bilateral interstitial infiltrates with pleural effusion and basilar infiltrate stable. Likely a background of COPD. Correlate for interstitial pneumonia. CHF superimposed on a back ground of chronic interstitial lung disease also in the differential diagnosis.
[2022-03-25] MEDS: SODIUM CHLORIDE 0.9% 1,000 ML IV SCH (09:26)
--- NOTE | 2022-03-25 11:24 | P.PN ---
Subjective Progress Note Date: 03/25/22 HISTORY OF PRESENT ILLNESS 71-year-old male who was recently admitted with CHF acute exacerbation also relative hypotension. Patient becoming more hypoxic requiring Ventimask with pulmonary following and being transitioned to BiPAP. Patient with extensive weakness and recommending continued PT/OT. Chest x-ray for today ordered and pending at this time. Patient is being followed by cardiology and pulmonary has been consulted. Patient is currently afebrile and denies chest pain or palpitations. Patient is tolerating diet with no reports of nausea or vomiting noted. Patient is afebrile. Patient is maintained on IV antibiotics in the form of ceftriaxone and will continue. Also recommend continue with breathing inhalational treatments and patient has been started on IV Solu-Cortef and will continue. Patient continues on midodrine for hypotension. Patient did receive a stat dose of IV Lasix today. 03/19/2022 Patient is seen and evaluated in follow-up on the selective care unit. He is currently resting comfortably in bed. Awake and alert in no acute distress. Patient is maintained on BiPAP 12/5 and 40% FiO2. Chest x-ray reveals persistent diffuse bilateral right greater than left reticular nodular infiltrates. Overall appearance is stable. Sputum culture revealed no growth. White count 7.7. Hemoglobin 8.8. Platelets 266. Sodium 137. Potassium 4.0. BUN 35. Creatinine 1.32. Glucose 119. He is continued on DuoNeb inhalations, Solu-Cortef, IV diuretics. Anticoagulated with Eliquis. Antibiotics in the form of ceftriaxone. 03/20/2022 Patient is seen and evaluated resting in bed; currently on 40% Ventimask; O2 saturation maintaining around 90%; BiPAP to be used as needed Vital signs are reviewed with temperature 97.9, pulse 122, respiration 22 and blood pressure of 95/61 with O2 saturation of 90% on an FiO2 of 40% Lab review shows sodium 136, potassium 3.2, BUN/creatinine of 37/1.41; blood glucoses ranging between 151-209 Patient remains in atrial flutter with RVR; cardiology is following with plans for possible NU cardioversion tomorrow morning Remains on Lasix 40 mg IV twice a day for CHF exacerbation; nephro on board for acute renal injury secondary to cardiorenal syndrome; creatinine remained stable at 1.3 03/21: Patient has been seen and followed by cardiology and pulmonary medicine. Patient is scheduled for cardioversion today. Patient states he is not feeling better today. No chest pain, palpitations, no significant shortness of breath at rest. He has been afebrile, heart rate in the 120s, blood pressure 91/52, pulse ox 90% on 40% Ventimask. Capillary blood glucose running between 119 and 300. ABGs pH 7.6, pCO2 31, pO2 67, sodium bicarb 30, total CO2 31, O2 saturation 95.1. Base excess 8.6. Patient is also followed by nephrology for acute kidney injury. 03/22: Yesterday, patient underwent successful NU and cardioversion and converted to sinus rhythm which is maintained. Patient is currently on a 40% Ventimask and unfortunately his pulse ox drops down to 85% without the Ventimask, maintaining at 91% with. Repeat chest x-ray reveals stable chest x- ray correlate for interstitial fibrosis with superimposed CHF or interstitial pneumonitis. Patient is followed closely by pulmonary medicine and patient started on cefepime, Solu-Medrol 40 mg IV every [address] of the chest ordered. Nephrology is following and recommending continuing current dose of Lasix which is 40 mg oral twice daily. 03/23: CAT scan of the chest revealed advanced COPD changes. Suspected associated extensive pulmonary infection correlate clinically. Follow complete resolution. Cannot exclude associated pulmonary edema. The patient was on BiPAP during the night and Ventimask during the day. Dr. Frank recommends continuing IV Solu-Medrol and cefepime. Daily while on IV steroids. YINA, ANCA titers are elevated and sed rate, Legionella ordered., Pulse ox 96% on Ventimask 50% FiO2. BUN 45 and creatinine 1.42. Capillary blood glucoses running 129 -275. Sputum culture finalized with normal respiratory ludy. 03/24: Again today, patient is on Ventimask. Ask if nursing can follow-up with pulmonary medicine regarding level of pulse ox is necessary for this patient. Patient made do fairly well with a lower pulse ox:. Cardiology is following as well as pulmonary medicine and nephrology. Nephrology is planning to continue current dose of Lasix midodrine and Solu-Medrol. He is currently on oral Lasix, Solu-Medrol at 40 mg every 8 hours, DuoNeb treatments 4 times daily and as needed, cefepime 2 g every 12 hours IV piggyback. Once oxygen levels are lower, patient will be discharged. Capillary blood glucose running between 199 and 325. BUN 45 creatinine 1.39. Scheduled NovoLog added to her regime.. 03/25: This morning, patient transition to high flow nasal cannula at 7 L with pulse ox of 88-90%. He is also getting up to a chair this morning. He's been afebrile, heart rate in the 50s, blood pressure 115/41. Repeat blood work reveals electrolytes normal. BUN 48 creatinine 1.86. Blood sugar 255. Sputum culture finalized with normal ludy. Chest x-ray reveals diffuse bilateral interstitial infiltrates with pleural effusion and basilar infiltrates stable. Likely background of COPD. Correlate for interstitial pneumonia. CHF superimposed on background chronic interstitial lung disease also in the differential. Patient is continued on DuoNeb treatments 4 times daily and as needed, Solu-Medrol 40 mg IV every 8 hours REVIEW OF SYSTEMS Constitutional: No fever, no chills, no night sweats. No weight change. No weakness, fatigue or lethargy. No daytime sleepiness. EENT: No headache. No blurred vision or double vision, no loss of vision. No loss of Hearing, no ringing in the ears, no dizziness. No nasal drainage or congestion. No epistaxis. No sore throat. Lungs: Continued shortness of breath, cough, no sputum production. No wheezing. Cardiovascular: No chest pain, no lower extremity edema. No palpitations. No paroxysmal nocturnal dyspnea. No orthopnea. No lightheadedness or dizziness. No syncopal episodes. Abdominal: No abdominal pain. No nausea, vomiting. No diarrhea. No constipation. No bloody or tarry stools. No loss of appetite. Genitourinary: No dysuria, increased frequency, urgency. No urinary retention. Musculoskeletal: No myalgias. No muscle weakness, no gait dysfunction, no frequent falls. No back pain. No neck pain. Integumentary: No wounds, no lesions. No rash or pruritus. No unusual bruising. No change in hair or nails. Neurologic: No aphasia. No facial droop. No change in mentation. No head injury. No headache. No paralysis. No paresthesia. Psychiatric: No depression. Reports anxiety. No mood swings. Endocrine: No abnormal blood sugars. No weight change. No excessive sweating or thirst. No cold intolerance. PHYSICAL EXAMINATION Gen: This is a 71-year-old male, resting in bed and appears to be fairly comfortable, currently on O2 at 7 L high flow. HEENT: Head is atraumatic, normocephalic. Pupils equal, round. Sclerae is anicteric. NECK: Supple. No JVD. No lymphadenopathy. No thyromegaly. LUNGS: Crackles bilateral bases. No intercostal retractions. HEART: Irregular rate and rhythm. Systolic murmur. ABDOMEN: Soft. Bowel sounds are present. No masses. No tenderness. EXTREMITIES: No pedal edema. No calf tenderness. NEUROLOGICAL: Patient is awake, alert and oriented x3. Cranial nerves 2 through 12 are grossly intact. ASSESSMENT AND PLAN 1. Persistent atrial flutter with RVR. Patient is seen and followed by cardiology with plan for cardioversion 03/21. Continue patient on eliquis 5 mg twice daily, Lopressor 25 mg 3 times daily, amiodarone 200 mg twice daily. 2. Acute on chronic diastolic heart failure. Continue patient on Lasix 40 mg twice daily. 3. Acute hypoxic hypoxic respiratory failure secondary to underlying pneumonia, pulmonary medicine consult appreciated, patient started on cefepime 2 g IV piggy back every 12 hours and Solu-Medrol 40 mg IV every 8 hours, continue DuoNeb treatments 4 times daily and as needed.. 4. Acute kidney injury secondary to prerenal and cardiorenal syndrome. Patient is followed by nephrology with recommendations to continue Lasix twice daily, and Aranesp 40 units every week and monitor orthostatic changes. 5. Hyperlipidemia. Continue atorvastatin 40 mg daily. 6. Hypertension. 7. History of CVA or TIA. 8. Possible COPD. Continue DuoNeb treatments 4 times daily and as needed. 9. Mild aortic stenosis. 10. Coronary artery disease status post CABG and PCI 11. GI prophylaxis. 12. DVT prophylaxis. Eliquis 5 mg twice daily. 13. Obstructive sleep apnea with CPAP. 14. Recurrent depression. Continue Seroquel 50 mg at bedtime. 15. Hypotension. Patient was started on midodrine 10 mg 3 times daily. 16. Chronic kidney disease stage III. 17. Diabetes mellitus type 2. Levemir 10 units daily and NovoLog scale, NovoLog 5 units with meals and at bedtime added. DISCHARGE PLAN Home with [facility] most likely by Monday. Impression and plan of care have been directed as dictated by the signing physician. Luci Farrar nurse practitioner acting as scribe for signing physician. Objective - Vital Signs Vital signs: Vital Signs Temp 97.4 F L 03/25/22 08:10 Pulse 63 03/25/22 08:10 Resp 22 03/25/22 08:10 BP 115/41 03/25/22 08:10 Pulse Ox 90 L 03/25/22 08:10 FiO2 35 03/25/22 07:39 Intake & Output 03/24/22 03/25/22 03/25/22 18:59 06:59 18:59 Intake Total 670 240 Output Total 250 750 Balance 420 -510 Weight 96 kg Intake: IV 20 Invasive Line 2 20 Intake, IV Titration 100 Amount Cefepime 2 gm In Sodium 100 Chloride 0.9% 100 ml @ 25 mls/hr IVPB Q12HR [facility] Rx #:[id number] Oral 670 120 Output: Urine 250 750 Other: Voiding Method Urinal # Voids 1 - Labs CBC & Chem 7: 03/19/22 07:57 03/25/22 07:26 Labs: Abnormal Lab Results - Last 24 Hours (Table) 03/24/22 03/24/22 03/24/22 Range/Units 07:30 12:09 17:08 BUN 45 H (9-20) mg/dL Creatinine 1.39 H (0.66-1.25) mg/dL Glucose 208 H (74-99) mg/dL POC Glucose (mg/dL) 178 H 163 H (70-110) mg/dL 03/24/22 03/25/22 Range/Units 20:44 07:21 BUN (9-20) mg/dL Creatinine (0.66-1.25) mg/dL Glucose (74-99) mg/dL POC Glucose (mg/dL) 177 H 255 H (70-110) mg/dL
[2022-03-25 12:14] LABS: Glucose,Whole Blood 161 mg/dL (70-110)
--- NOTE | 2022-03-25 13:06 | P.PN ---
Subjective Progress Note Date: 03/25/22 71-year-old male who presented to the emergency department on March 12, complaining of shortness of breath. The patient had shortness of breath about a day or so prior to admission. The patient complained about being fatigued. There was no chest pain or palpitations. He denied any cough or phlegm pro duction. No leg pain or leg swelling. The patient apparently denied any chest pain or chest discomfort. We were asked to see the patient today, for shortness of breath. Currently, he's on a 40% Venturi mask. His clinical picture is consistent with CHF. His BMP was elevated. He is on saline at KVO. I placed the patient on BiPAP at 12/5 and 40%, to see we can make him a bit more comfortable. I asked him whether or not he was any better, the same, or any worse since he was admitted. He stated about the same. I did speak to the nurse, Margaret about the patient. She thought the patient was relatively stable and has not deteriorated. The patient apparently has a history of atrial fibri llation, diabetes, GERD, hyperlipidemia, hypertension, myocardial infarction, chronic renal insufficiency, mild aortic stenosis, and possible COPD from previous tobacco use. The patient is also had heart catheterization with stent placement, and bypass grafting. White count 10.6, hemoglobin 9.5, hematocrit 31.2, and platelet count 355,000. Sodium 142, potassium 4.1, chlorides 105, CO2 25, anion gap 12, BUN 36, and creatinine 1.15. On admission, his N-terminal proBNP was 10,800. Chest x-ray in my opinion is consistent with fluid overload/CHF, and interstitial edema. The patient does have bilateral pleural effusions. Progress note dated 03/18/2022. 71-year-old male seen yesterday in consultation. Please see the note above. Today, the patient's feeling better. Yesterday, he was placed on BiPAP, with settings of 12/5 and 40%. Currently, he's using a 40% Venturi mask. I explained to the patient, they he could go back on BiPAP anytime he wishes. The BiPAP will be especially useful for his congestive heart failure. White count 10.9, hemoglobin 9.9, hematocrit 32.1, and platelet count 409,000. Sodium 139, potassium 3.4, chlorides 102, CO2 25, anion gap 12, BUN 35, and creatinine 1.30. Calcium is 8.3. Chest x-ray from March 17 is evaluated. Progress note dated 03/20/2022. 71-year-old male seen in consultation on the . The patient was admitted with a diagnosis of CHF. Because of worsening respiratory distress, we placed him on BiPAP, with settings of 12/5 and 40%. When not using BiPAP, the patient could use a 40% Venturi mask, or nasal cannula. Clinically, the patient's feeling much better. He has been receiving Lasix. No new labs today other than a glucose of 151. Chest x-ray from March 19, was reviewed already. on 03/21/2022, the patient is being seen for a follow-up. I reviewed the records. The patient has been in the hospital for almost a week complaining of shortness of breath and ongoing issues with hypoxic respiratory failure without any much improvement. This morning, the patient had based on oxygen with a 40% Ventimaskand he was still having labored breathing. He was still tachycardic and a heart rate seemed to be in flutter in the rate of 140.blood gases was done today that showed a combination of respiratory and metabolic alkalosis. The patient had a pH of 7.6 with a pCO2 of 31 and pO2 of 67. Note that the patient was being diuresed aggressively with diuresis with IV Lasix and the patient was responding knowing that his initial presentation was most consistent with CHF. Electrodes from today still pending. From yesterday, the serum bicarb was a 28 with a mean of 37 and a creatinine of 1.4.the patient remains in flutter rhythm. The patient is being considered forcardioversion following a NU and this will be done by cardiology. The patient has no lower extremity edema. No other new complaints otherwise for now. No angina. No palpitation. Chest x-ray still showing bilateral pulmonary infiltrates more so with a peripheral distribution. There is also crackles in lung bases bilaterally on today's examination. 03/22/2022, the patient is being seen for a follow-up. Note that the patient's is an acute hypoxic respiratory failure and the patient is currently on a 40% Ventimask. No improvement in oxygenation and repeat chest x-ray was done showing diffuse bilateral pulmonary infiltrates with no interval change compared to the earlier chest x-rays. Note that there is a diffuse reticular another interstitial pattern along with cardiomegaly. Obviously the initial concern that this was CHF. Nevertheless, possibility of an underlying infectious or postinfectious causes/ARDS cannot be completely ruled out. Based on that, I would suggest further investigation. The patient is afebrile. The patient is hemodynamically stable. On today's blood work, his BUN is 45 with a creatinine of 1.4 and sodium level is at 138 and the patient was switched to oral Lasix. Note that his initial proBNP level was quite elevated supporting the diagnosis of CHF. Nevertheless, the response to the diuretics was suboptimal. Also, the patient underwent cardioversion yesterday and his cardiac rhythm is back to sinus. He remains on anticoagulants. He is started on IV Rocephin 03/23/2022, the patient remains hypoxic with a 50% Ventimask. Further investigation was done and this included a CAT scan of the chest that was completed yesterday without contrast and the CAT scan showed extensive disease with diffuse bilateral pulmonary consolidation and alveolar opacities most evident in the right lung and the relatively sparing the left lower lobe and this is suggestive of an acute infectious pneumonia. Underlying CHF is doubtful. The patient has small bilateral pleural effusion and cardiomegaly. On examination, he does have some coarse crackles in the lung bases bilaterally. Note that these are of a new onset knowing that 3 weeks ago, his infiltrates were not present. The patient did not respond well to diuretics. His BUN is at 45 with a creatinine of 1.4 and the patient is currently on oral Lasix. I also discontinued the IV Rocephin and put the patient on cefepime 2 g every 12 hours and the patient is also on IV Solu-Medrol 40 mg every 8 hours. No interval worsening shortness of breath. He is unable to breathe through his nose and he prefers the Ventimask for now. On and off she is also using the BiPAP. His cardiac rhythm is NSR controlled rate and there is no rapid ventricular response post cardioversion. 03/24/2022, the patient is feeling well. The patient remains on a 50% Ventimask and he prefers to be on a Ventimask as the patient is unable to take oxygen through his nostrils. No significant chest pain. He feels less short of breath compared to yesterday. Pulse ox is in the high 90s for now. He remains on IV cefepime. He remains on IV Solu-Medrol. No fever. No chills. No sweats. No other new complaints otherwise. His cardiac rhythm remains sinus and the patient is currently on oral amiodarone and the patient is also on Eliquis 5 mg by mouth twice a day.blood work from today includes electrolytes and the patient's creatinine is stable at 1.35 with a mean of 45 and his sodium level of 141. His connective tissue disease workup thus far has been negative. Legionella urine antigen was also negative. On 03/25/2022 , the patient is feeling well. The patient sitting up on a chair. He got himself off the Ventimask and the patient is currently on a nasal cannula at 7 L per minute. The patient is doing well. His oxidation is above 90%. He feels less short of breath. I had the patient on IV Solu Medrol 40 mg every 8 hours. He is also on IV cefepime. A repeat chest x-ray was done and it showed unchanged bilateral airspace disease and infiltrates which remains essentially unchanged. The patient is currently on oral Lasix 40 mg by mouth daily. Afebrile. The blood work from today showing a mean of 48 with a creatinine of 1.8. Sodium is at 141. Glucose is 161 and today's evaluation with a calcium level of 8.3. He has no complaints otherwise for now. No chest pain. Legionella urine antigen was negative. Connective tissue disease workup was also negative. Objective - Vital Signs Vital signs: Vital Signs Temp 97.4 F L 03/25/22 08:10 Pulse 56 L 03/25/22 11:28 Resp 22 03/25/22 08:10 BP 115/41 03/25/22 08:10 Pulse Ox 88 L 03/25/22 11:16 FiO2 35 03/25/22 07:39 Intake & Output 03/24/22 03/25/22 03/25/22 18:59 06:59 18:59 Intake Total 670 240 118 Output Total 250 750 Balance 420 -510 118 Weight 96 kg Intake: IV 20 Invasive Line 2 20 Intake, IV Titration 100 Amount Cefepime 2 gm In Sodium 100 Chloride 0.9% 100 ml @ 25 mls/hr IVPB Q12HR [facility] Rx #:[id number] Oral 670 120 118 Output: Urine 250 750 Other: Voiding Method Urinal # Voids 1 - Exam No acute distress, oriented 3. Sitting up in bed,, on 7 L of oxygen nasal cannula Head exam was generally normal. There was no scleral icterus or corneal arcus. Mucous membranes were moist.. HEENT examination is grossly unremarkable. Neck supple. Full range of motion. No adenopathy thyromegaly or neck vein distention. Cardiovascular examination reveals regular rhythm rate. S1-S2 normal. No S3 or S4. No discernible murmur noted. tachycardic with a heart rate above 120 in an atrial flutter rhythm Lungs reveal scattered mild to moderate crackles and rhonchi. Breath sounds equal bilaterally. No wheezes. Currently using the ventilatory mask. Abdomen soft bowel sounds are heard. No masses or tenderness. Extremities are intact. No cyanosis clubbing or edema. Skin is without rash or lesion. Neurologic examination is brief but nonfocal. - Labs CBC & Chem 7: 03/19/22 07:57 03/25/22 07:26 Labs: Abnormal Lab Results - Last 24 Hours (Table) 03/24/22 03/24/22 03/25/22 Range/Units 17:08 20:44 07:21 BUN (9-20) mg/dL Creatinine (0.66-1.25) mg/dL Glucose (74-99) mg/dL POC Glucose (mg/dL) 163 H 177 H 255 H (70-110) mg/dL Calcium (8.4-10.2) mg/dL 03/25/22 03/25/22 Range/Units 07:26 12:12 BUN 48 H (9-20) mg/dL Creatinine 1.86 H (0.66-1.25) mg/dL Glucose 219 H (74-99) mg/dL POC Glucose (mg/dL) 161 H (70-110) mg/dL Calcium 8.3 L (8.4-10.2) mg/dL Assessment and Plan Plan: Shortness of breath, with diffuse bilateral pulmonary infiltrates and secondary hypoxic respiratory failure, and the presentation is not consistent with CHF. The patient did not respond to diuresis. This is an acute lung injury/ARDS, exact underlying etiology is not clear and the patient is taking sometimes recovers. The patient is stable for now and is down to 7 L of O2 nasal cannula. Connective tissue disease workup was negative. Legionella urine antigen was negative. Cold with 19 testing was negative. Influenza screen was negative. Acute hypoxic respiratory failure remains on 50% FiO2, Ventimask oxygenation is unchanged compared to yesterday History of chronic atrial fibrillation/atrial flutter. Anticoagulation with Eliquis History of CAD, status post bypass grafting, as well as heart catheterization with stent placement. History of CVA. Diabetes mellitus. History of myocardial infarction. Hypertension. Hyperlipidemia. History of possible COPD, secondary to prior tobacco use. Mild aortic stenosis. respiratory/metabolic alkalosis Plan Currently the patient is on 7 L of O2 nasal cannula. Gradually wean FiO2 Chest x-ray findings are unchanged Continue oral Lasix CAT scan of the chest that was done noncontrast study was noted and is consistent with postinfectious changes including possibility of ARDS or acute interstitial pneumonia continue Solu-Medrol 40 mg every 12 hours The patient is post synchronized cardioversion Repeat electrolytes today is unchanged Continue oral Lasix 40 mg twice a day Monitor renal function, renal function is stable IV fluids at KVO We'll keep the patient negative fluid balance Continue metoprolol 12.5 mg 3 times a day Continue amiodarone 200 mg by mouth twice a day on likely to be related to amiodarone-related toxicity and the patient is currently on 200 mg of amiodarone once daily Continue anticoagulation with Eliquis We'll continue to follow.
--- NOTE | 2022-03-25 13:33 | P.PN ---
Subjective This is a 71-year-old male past medical history of coronary artery disease status post three-vessel CABG (VG-OM1, TINOCO-LAD, BRAD-RCA) in 1996, PCI to SVG to left circumflex in 2000, PCI proximal RCA in 1996 and proximal LAD in 2014, hypertension, dyslipidemia, type 2 diabetes, peripheral vascular disease, ischemic cardiomyopathy, long-standing persistent atrial fibrillation. Patient follows with Dr. Mcfarland. We're following patient for atrial flutter with RVR and congestive heart failure. He was admitted this time with progressive dyspnea and findings of CHF. He continues to be in atrial flutter with rapid ventricular response in spite of beta buck and amiodarone. He has been anticoagulated. His ejection fraction was 40-45%. Patient underwent NU cardioversion on 03/[address] Mcfarland. NU revealed: Dilated left atrium with normal appearance of the left atrial appendage, Normal in size with mild global hypokinesis, Aortic sclerosis with mild aortic regurgitation, Mitral annular calcification was mild to moderate mitral regurgi tation and mild tricuspid regurgitation, Mild to moderate atherosclerotic changes of the descending thoracic aorta, No shunting across the intra-atrial septum 03/22/2022- CT chest revealed extensive pulmonary consolidation and alveolar opacities most evident involving the right lung and relatively sparing the left lower lobe. Suggestive of acute infection/pneumonia on top of the background of COPD. 03/25/2022 Patient seen and examined at bedside, he continues to be hypoxic but improving, he is on 7L high flow nasal cannula today. He is feeling ok, no acute events overnight. No chest pain or palpitations. He is maintaining sinus mechanism on telemetry. Repeat chest x-ray this morning revealed diffuse bilateral tissue infiltrates with pleural effusion. Vitals: 115/41, heart rate 63, afebrile, oxygen saturations 88-90% 7L high flow nasal cannula GENERAL: Hypoxic on Venti mask. NECK: Supple without JVD or thyromegaly. LUNGS: Breath sounds rhonchi auscultation bilaterally. Respiration equal and unlabored. No wheezes, rales or rhonchi. HEART: Regular rate and rhythm Systolic murmur at base, No rubs or gallops. S1 and S2 heard. EXTREMITIES: Normal range of motion, no edema. No clubbing or cyanosis. Peripheral pulses intact. ASSESSMENT Shortness of breath, likely multifactorial with underlying congestive heart failure, atrial flutter with RVR, and now with extensive interstitial infiltrates bilaterally Possible Acute respiratory distress syndrome Typical atrial flutter s/p cardioversion on 03/21 Long-standing persistent atrial fibrillation Symptoms of congestive heart failure with ejection fraction 40-45%, improved, worsened by the arrhythmia Coronary artery disease status post three-vessel CABG (VG-OM1, TINOCO-LAD, BRAD- RCA) in 1996, PCI to SVG to left circumflex in 2000, PCI proximal RCA in 1996 and proximal LAD in 2014 Hypertension Dyslipidemia Type 2 diabetes Peripheral vascular disease Ischemic cardiomyopathy PLAN Amiodarone decreased to 200mg daily Metoprolol tartrate 25mg BID Continue Eliquis Continue statin PO Lasix 40mg BID Pulmonary following Wean oxygen as tolerated No further changes from a cardiology perspective, he is maintaining sinus mechanism after cardioversion. We'll follow the patient as needed. Please reconsult if needed Nurse Practitioner note has been reviewed, I agree with a documented findings and plan of care. Patient was seen and examined. Objective - Vital Signs Vital signs: Vital Signs Temp 97.4 F L 03/25/22 08:10 Pulse 56 L 03/25/22 11:28 Resp 22 03/25/22 08:10 BP 115/41 03/25/22 08:10 Pulse Ox 88 L 03/25/22 11:16 FiO2 35 03/25/22 07:39 Intake & Output 03/24/22 03/25/22 03/25/22 18:59 06:59 18:59 Intake Total 670 240 118 Output Total 250 750 Balance 420 -510 118 Weight 96 kg Intake: IV 20 Invasive Line 2 20 Intake, IV Titration 100 Amount Cefepime 2 gm In Sodium 100 Chloride 0.9% 100 ml @ 25 mls/hr IVPB Q12HR [facility] Rx #:[id number] Oral 670 120 118 Output: Urine 250 750 Other: Voiding Method Urinal # Voids 1 - Labs CBC & Chem 7: 03/19/22 07:57 03/25/22 07:26 Labs: Abnormal Lab Results - Last 24 Hours (Table) 03/24/22 03/24/22 03/25/22 Range/Units 17:08 20:44 07:21 BUN (9-20) mg/dL Creatinine (0.66-1.25) mg/dL Glucose (74-99) mg/dL POC Glucose (mg/dL) 163 H 177 H 255 H (70-110) mg/dL Calcium (8.4-10.2) mg/dL 03/25/22 03/25/22 Range/Units 07:26 12:12 BUN 48 H (9-20) mg/dL Creatinine 1.86 H (0.66-1.25) mg/dL Glucose 219 H (74-99) mg/dL POC Glucose (mg/dL) 161 H (70-110) mg/dL Calcium 8.3 L (8.4-10.2) mg/dL
[2022-03-25 16:52] LABS: Glucose,Whole Blood 178 mg/dL (70-110)
[2022-03-25] MEDS: ALPRAZolam 0.25 MG TAB PO PRN (19:03)
[2022-03-25] MEDS: QUEtiapine 50 MG TAB PO SCH (20:39)
[2022-03-25 21:06] LABS: Glucose,Whole Blood 391 mg/dL (70-110)
[2022-03-26] MEDS: PANTOPRAZOLE 40 MG TABLET PO SCH (06:29)
[2022-03-26] MEDS: MIDODRINE 5 MG TAB PO SCH ×3 (06:29→17:47)
[2022-03-26 07:10] LABS: Glucose,Whole Blood 206 mg/dL (70-110)
[2022-03-26] MEDS: IPRATROPIUM-ALBUTEROL 3 ML NEB INHALATION SCH ×4 (08:16→20:04)
[2022-03-26] MEDS: ATORVASTATIN 40 MG TAB PO SCH (09:10)
[2022-03-26] MEDS: METOPROLOL TARTRATE 25 MG TAB PO SCH ×2 (09:11→20:24)
[2022-03-26] MEDS: methylPREDNISolone SOD SUCCI 40 MG/ML 1 ML VIAL IV SCH ×3 (09:11→23:13)
[2022-03-26] MEDS: AMIODARONE 200 MG TAB PO SCH (09:11)
[2022-03-26] MEDS: DOCUSATE 100 MG CAP PO SCH (09:11)
[2022-03-26] MEDS: APIXABAN 5 MG TAB PO SCH ×2 (09:11→20:24)
[2022-03-26] MEDS: FUROSEMIDE 40 MG TAB PO SCH ×2 (09:11→17:46)
[2022-03-26] MEDS: INSULIN DETEMIR (LEVEMIR) 100 UNIT/ML SYR SQ SCH (09:12)
[2022-03-26] MEDS: CEFEPIME 2 GM in SODIUM CHLORIDE 0.9% 100 ML IVPB SCH ×2 (09:12→20:25)
[2022-03-26] MEDS: INSULIN ASPART (NovoLOG) 100 UNIT/ML VIAL SQ SCH ×8 (09:12→20:25)
--- NOTE | 2022-03-26 09:45 | P.PN ---
Subjective Patient is seen in follow-up for acute kidney injury. On oral amiodarone and metoprolol for A. fib. Blood pressure stable. Nonoliguric. Denies chest pain or shortness of breath. Currently on 7 L nasal cannula. On oral Lasix. Vital signs are stable. General: Awake. No acute distress. HEENT: Head exam is unremarkable. LUNGS: Breath sounds decreased. HEART: Regular rate and rhythm. ABDOMEN: Soft, no distention. EXTREMITITES: No edema. Objective - Vital Signs Vital signs: Vital Signs Temp 97.8 F 03/26/22 09:05 Pulse 64 03/26/22 09:05 Resp 18 03/26/22 09:05 BP 122/49 03/26/22 09:05 Pulse Ox 96 03/26/22 09:05 FiO2 40 03/26/22 04:19 Intake & Output 03/25/22 03/26/22 03/26/22 18:59 06:59 18:59 Intake Total 746 240 118 Output Total 500 775 Balance 246 -535 118 Intake: IV 10 20 Invasive Line 2 10 20 Intake, IV Titration 100 Amount Cefepime 2 gm In Sodium 100 Chloride 0.9% 100 ml @ 25 mls/hr IVPB Q12HR [facility] Rx #:[id number] Oral 736 120 118 Output: Urine 500 775 Other: Voiding Method Urinal # Voids 1 # Bowel Movements 1 1 - Labs CBC & Chem 7: 03/19/22 07:57 03/25/22 07:26 Labs: Abnormal Lab Results - Last 24 Hours (Table) 03/25/22 03/25/22 03/25/22 Range/Units 12:12 16:45 20:55 POC Glucose (mg/dL) 161 H 178 H 391 H (70-110) mg/dL 03/26/22 Range/Units 07:05 POC Glucose (mg/dL) 206 H (70-110) mg/dL Assessment and Plan Plan: Assessment: 1. Acute kidney injury secondary to ATN secondary to hypotension and cardiorenal syndrome. Renal function was worse yesterday. Creatinine at 1.86. UA benign from February 2022. No hydronephrosis noted on CT done 03/02/2022. 2. Chronic kidney disease stage 2/IIIa with baseline creatinine near 1-1.1 secondary to nephrosclerosis. 3. A. fib with RVR. Cardiology following. On oral amiodarone and metoprolol. status post cardioversion 03/21/2022. 4. Anemia of chronic kidney disease. Iron replete. On Aranesp. 5. Chronic systolic CHF with ejection fraction of 40-45% with mild mitral and tricuspid regurgitation. 6. Concern for adrenal insufficiency with low cortisol level last admission maintained on Cortef. Currently on IV steroids. Plan: Avoid nephrotoxins. Continue to monitor renal function and urine output. Patient will need to follow-up with endocrinology outpatient for further workup for adrenal insufficiency. Maintain oral Lasix. Follow-up morning labs.
--- NOTE | 2022-03-26 11:13 | P.PN ---
Subjective Progress Note Date: 03/26/22 71-year-old male who presented to the emergency department on March 12, complaining of shortness of breath. The patient had shortness of breath about a day or so prior to admission. The patient complained about being fatigued. There was no chest pain or palpitations. He denied any cough or phlegm pro duction. No leg pain or leg swelling. The patient apparently denied any chest pain or chest discomfort. We were asked to see the patient today, for shortness of breath. Currently, he's on a 40% Venturi mask. His clinical picture is consistent with CHF. His BMP was elevated. He is on saline at KVO. I placed the patient on BiPAP at 12/5 and 40%, to see we can make him a bit more comfortable. I asked him whether or not he was any better, the same, or any worse since he was admitted. He stated about the same. I did speak to the nurse, Margaret about the patient. She thought the patient was relatively stable and has not deteriorated. The patient apparently has a history of atrial fibri llation, diabetes, GERD, hyperlipidemia, hypertension, myocardial infarction, chronic renal insufficiency, mild aortic stenosis, and possible COPD from previous tobacco use. The patient is also had heart catheterization with stent placement, and bypass grafting. White count 10.6, hemoglobin 9.5, hematocrit 31.2, and platelet count 355,000. Sodium 142, potassium 4.1, chlorides 105, CO2 25, anion gap 12, BUN 36, and creatinine 1.15. On admission, his N-terminal proBNP was 10,800. Chest x-ray in my opinion is consistent with fluid overload/CHF, and interstitial edema. The patient does have bilateral pleural effusions. Progress note dated 03/18/2022. 71-year-old male seen yesterday in consultation. Please see the note above. Today, the patient's feeling better. Yesterday, he was placed on BiPAP, with settings of 12/5 and 40%. Currently, he's using a 40% Venturi mask. I explained to the patient, they he could go back on BiPAP anytime he wishes. The BiPAP will be especially useful for his congestive heart failure. White count 10.9, hemoglobin 9.9, hematocrit 32.1, and platelet count 409,000. Sodium 139, potassium 3.4, chlorides 102, CO2 25, anion gap 12, BUN 35, and creatinine 1.30. Calcium is 8.3. Chest x-ray from March 17 is evaluated. Progress note dated 03/20/2022. 71-year-old male seen in consultation on the . The patient was admitted with a diagnosis of CHF. Because of worsening respiratory distress, we placed him on BiPAP, with settings of 12/5 and 40%. When not using BiPAP, the patient could use a 40% Venturi mask, or nasal cannula. Clinically, the patient's feeling much better. He has been receiving Lasix. No new labs today other than a glucose of 151. Chest x-ray from March 19, was reviewed already. on 03/21/2022, the patient is being seen for a follow-up. I reviewed the records. The patient has been in the hospital for almost a week complaining of shortness of breath and ongoing issues with hypoxic respiratory failure without any much improvement. This morning, the patient had based on oxygen with a 40% Ventimaskand he was still having labored breathing. He was still tachycardic and a heart rate seemed to be in flutter in the rate of 140.blood gases was done today that showed a combination of respiratory and metabolic alkalosis. The patient had a pH of 7.6 with a pCO2 of 31 and pO2 of 67. Note that the patient was being diuresed aggressively with diuresis with IV Lasix and the patient was responding knowing that his initial presentation was most consistent with CHF. Electrodes from today still pending. From yesterday, the serum bicarb was a 28 with a mean of 37 and a creatinine of 1.4.the patient remains in flutter rhythm. The patient is being considered forcardioversion following a NU and this will be done by cardiology. The patient has no lower extremity edema. No other new complaints otherwise for now. No angina. No palpitation. Chest x-ray still showing bilateral pulmonary infiltrates more so with a peripheral distribution. There is also crackles in lung bases bilaterally on today's examination. 03/22/2022, the patient is being seen for a follow-up. Note that the patient's is an acute hypoxic respiratory failure and the patient is currently on a 40% Ventimask. No improvement in oxygenation and repeat chest x-ray was done showing diffuse bilateral pulmonary infiltrates with no interval change compared to the earlier chest x-rays. Note that there is a diffuse reticular another interstitial pattern along with cardiomegaly. Obviously the initial concern that this was CHF. Nevertheless, possibility of an underlying infectious or postinfectious causes/ARDS cannot be completely ruled out. Based on that, I would suggest further investigation. The patient is afebrile. The patient is hemodynamically stable. On today's blood work, his BUN is 45 with a creatinine of 1.4 and sodium level is at 138 and the patient was switched to oral Lasix. Note that his initial proBNP level was quite elevated supporting the diagnosis of CHF. Nevertheless, the response to the diuretics was suboptimal. Also, the patient underwent cardioversion yesterday and his cardiac rhythm is back to sinus. He remains on anticoagulants. He is started on IV Rocephin 03/23/2022, the patient remains hypoxic with a 50% Ventimask. Further investigation was done and this included a CAT scan of the chest that was completed yesterday without contrast and the CAT scan showed extensive disease with diffuse bilateral pulmonary consolidation and alveolar opacities most evident in the right lung and the relatively sparing the left lower lobe and this is suggestive of an acute infectious pneumonia. Underlying CHF is doubtful. The patient has small bilateral pleural effusion and cardiomegaly. On examination, he does have some coarse crackles in the lung bases bilaterally. Note that these are of a new onset knowing that 3 weeks ago, his infiltrates were not present. The patient did not respond well to diuretics. His BUN is at 45 with a creatinine of 1.4 and the patient is currently on oral Lasix. I also discontinued the IV Rocephin and put the patient on cefepime 2 g every 12 hours and the patient is also on IV Solu-Medrol 40 mg every 8 hours. No interval worsening shortness of breath. He is unable to breathe through his nose and he prefers the Ventimask for now. On and off she is also using the BiPAP. His cardiac rhythm is NSR controlled rate and there is no rapid ventricular response post cardioversion. 03/24/2022, the patient is feeling well. The patient remains on a 50% Ventimask and he prefers to be on a Ventimask as the patient is unable to take oxygen through his nostrils. No significant chest pain. He feels less short of breath compared to yesterday. Pulse ox is in the high 90s for now. He remains on IV cefepime. He remains on IV Solu-Medrol. No fever. No chills. No sweats. No other new complaints otherwise. His cardiac rhythm remains sinus and the patient is currently on oral amiodarone and the patient is also on Eliquis 5 mg by mouth twice a day.blood work from today includes electrolytes and the patient's creatinine is stable at 1.35 with a mean of 45 and his sodium level of 141. His connective tissue disease workup thus far has been negative. Legionella urine antigen was also negative. On 03/25/2022 , the patient is feeling well. The patient sitting up on a chair. He got himself off the Ventimask and the patient is currently on a nasal cannula at 7 L per minute. The patient is doing well. His oxidation is above 90%. He feels less short of breath. I had the patient on IV Solu Medrol 40 mg every 8 hours. He is also on IV cefepime. A repeat chest x-ray was done and it showed unchanged bilateral airspace disease and infiltrates which remains essentially unchanged. The patient is currently on oral Lasix 40 mg by mouth daily. Afebrile. The blood work from today showing a mean of 48 with a creatinine of 1.8. Sodium is at 141. Glucose is 161 and today's evaluation with a calcium level of 8.3. He has no complaints otherwise for now. No chest pain. Legionella urine antigen was negative. Connective tissue disease workup was also negative. 03/26/2022, the patient is stable 7 L of oxygen by nasal cannula. In the pulse ox in the order of 96%. No chest pain. No significant shortness of breath. Creatinine from yesterday was 1.8 and the findings on the case. The patient is currently on broad-spectrum antibiotics and the patient is currently on IV cefepime. The patient IV Solu-Medrol. The patient is on amiodarone 200 mg by mouth daily. He is also on Toprol 25 mg twice a day. Cardiac rhythm is sinus. He is off diuretics. Objective - Vital Signs Vital signs: Vital Signs Temp 97.8 F 03/26/22 09:05 Pulse 64 03/26/22 09:05 Resp 18 03/26/22 09:05 BP 122/49 03/26/22 09:05 Pulse Ox 96 03/26/22 09:05 FiO2 40 03/26/22 04:19 Intake & Output 03/25/22 03/26/22 03/26/22 18:59 06:59 18:59 Intake Total 746 240 118 Output Total 500 775 Balance 246 -535 118 Intake: IV 10 20 Invasive Line 2 10 20 Intake, IV Titration 100 Amount Cefepime 2 gm In Sodium 100 Chloride 0.9% 100 ml @ 25 mls/hr IVPB Q12HR [facility] Rx #:[id number] Oral 736 120 118 Output: Urine 500 775 Other: Voiding Method Urinal Bedside Commode Urinal # Voids 1 # Bowel Movements 1 1 - Exam No acute distress, oriented 3. Sitting up in bed,, on 7 L of oxygen nasal cannula Head exam was generally normal. There was no scleral icterus or corneal arcus. Mucous membranes were moist.. HEENT examination is grossly unremarkable. Neck supple. Full range of motion. No adenopathy thyromegaly or neck vein distention. Cardiovascular examination reveals regular rhythm rate. S1-S2 normal. No S3 or S4. No discernible murmur noted. tachycardic with a heart rate above 120 in an atrial flutter rhythm Lungs reveal scattered mild to moderate crackles and rhonchi. Breath sounds equal bilaterally. No wheezes. Currently using the ventilatory mask. Abdomen soft bowel sounds are heard. No masses or tenderness. Extremities are intact. No cyanosis clubbing or edema. Skin is without rash or lesion. Neurologic examination is brief but nonfocal. - Labs CBC & Chem 7: 03/19/22 07:57 03/25/22 07:26 Labs: Abnormal Lab Results - Last 24 Hours (Table) 03/25/22 03/25/22 03/25/22 Range/Units 12:12 16:45 20:55 POC Glucose (mg/dL) 161 H 178 H 391 H (70-110) mg/dL 03/26/22 Range/Units 07:05 POC Glucose (mg/dL) 206 H (70-110) mg/dL Assessment and Plan Plan: Shortness of breath, with diffuse bilateral pulmonary infiltrates and secondary hypoxic respiratory failure, and the presentation is not consistent with CHF. The patient did not respond to diuresis. This is an acute lung injury/ARDS, exact underlying etiology is not clear and the patient is taking sometimes r ecovers. The patient is stable for now and is down to 7 L of O2 nasal cannula. Connective tissue disease workup was negative. Legionella urine antigen was negative. Cold with 19 testing was negative. Influenza screen was negative. Acute hypoxic respiratory failure remains on 50% FiO2, Ventimask oxygenation is unchanged compared to yesterday History of chronic atrial fibrillation/atrial flutter. Anticoagulation with Eliquis History of CAD, status post bypass grafting, as well as heart catheterization with stent placement. History of CVA. Diabetes mellitus. History of myocardial infarction. Hypertension. Hyperlipidemia. History of possible COPD, secondary to prior tobacco use. Mild aortic stenosis. respiratory/metabolic alkalosis Plan Clinically improving Currently the patient is on 7 L of O2 nasal cannula. Gradually wean FiO2 knowing that the patient's pulse ox 96% on 7 L about 2 by nasal cannula Chest x-ray findings are unchanged from yesterday Hold diuretics and monitor renal function and creatinine was up to 1.8 from yesterday CAT scan of the chest that was done noncontrast study was noted and is consistent with postinfectious changes including possibility of ARDS or acute interstitial pneumonia continue Solu-Medrol 40 mg every 12 hours The patient is post synchronized cardioversion Repeat electrolytes today is unchanged Monitor renal function, renal function is stable IV fluids at KVO We'll keep the patient negative fluid balance Continue metoprolol 12.5 mg 3 times a day Continue amiodarone 200 mg by mouth twice a day on likely to be related to amio darone-related toxicity and the patient is currently on 200 mg of amiodarone once daily Continue anticoagulation with Eliquis Increase mobility Incentive spirometer We'll continue to follow.
[2022-03-26 11:51] LABS: Glucose,Whole Blood 259 mg/dL (70-110)
[2022-03-26 12:23] LABS: Calcium 8.5 mg/dL (8.4-10.2); Magnesium 2.2 mg/dL (1.6-2.3); Potassium 3.6 mmol/L (3.5-5.1)
--- NOTE | 2022-03-26 16:03 | P.PN ---
Subjective Progress Note Date: 03/26/22 HISTORY OF PRESENT ILLNESS 71-year-old male who was recently admitted with CHF acute exacerbation also relative hypotension. Patient becoming more hypoxic requiring Ventimask with pulmonary following and being transitioned to BiPAP. Patient with extensive weakness and recommending continued PT/OT. Chest x-ray for today ordered and pending at this time. Patient is being followed by cardiology and pulmonary has been consulted. Patient is currently afebrile and denies chest pain or palpitations. Patient is tolerating diet with no reports of nausea or vomiting noted. Patient is afebrile. Patient is maintained on IV antibiotics in the form of ceftriaxone and will continue. Also recommend continue with breathing inhalational treatments and patient has been started on IV Solu-Cortef and will continue. Patient continues on midodrine for hypotension. Patient did receive a stat dose of IV Lasix today. 03/19/2022 Patient is seen and evaluated in follow-up on the selective care unit. He is currently resting comfortably in bed. Awake and alert in no acute distress. Patient is maintained on BiPAP 12/5 and 40% FiO2. Chest x-ray reveals persistent diffuse bilateral right greater than left reticular nodular infiltrates. Overall appearance is stable. Sputum culture revealed no growth. White count 7.7. Hemoglobin 8.8. Platelets 266. Sodium 137. Potassium 4.0. BUN 35. Creatinine 1.32. Glucose 119. He is continued on DuoNeb inhalations, Solu-Cortef, IV diuretics. Anticoagulated with Eliquis. Antibiotics in the form of ceftriaxone. 03/20/2022 Patient is seen and evaluated resting in bed; currently on 40% Ventimask; O2 saturation maintaining around 90%; BiPAP to be used as needed Vital signs are reviewed with temperature 97.9, pulse 122, respiration 22 and blood pressure of 95/61 with O2 saturation of 90% on an FiO2 of 40% Lab review shows sodium 136, potassium 3.2, BUN/creatinine of 37/1.41; blood glucoses ranging between 151-209 Patient remains in atrial flutter with RVR; cardiology is following with plans for possible NU cardioversion tomorrow morning Remains on Lasix 40 mg IV twice a day for CHF exacerbation; nephro on board for acute renal injury secondary to cardiorenal syndrome; creatinine remained stable at 1.3 03/21: Patient has been seen and followed by cardiology and pulmonary medicine. Patient is scheduled for cardioversion today. Patient states he is not feeling better today. No chest pain, palpitations, no significant shortness of breath at rest. He has been afebrile, heart rate in the 120s, blood pressure 91/52, pulse ox 90% on 40% Ventimask. Capillary blood glucose running between 119 and 300. ABGs pH 7.6, pCO2 31, pO2 67, sodium bicarb 30, total CO2 31, O2 saturation 95.1. Base excess 8.6. Patient is also followed by nephrology for acute kidney injury. 03/22: Yesterday, patient underwent successful NU and cardioversion and converted to sinus rhythm which is maintained. Patient is currently on a 40% Ventimask and unfortunately his pulse ox drops down to 85% without the Ventimask, maintaining at 91% with. Repeat chest x-ray reveals stable chest x- ray correlate for interstitial fibrosis with superimposed CHF or interstitial pneumonitis. Patient is followed closely by pulmonary medicine and patient started on cefepime, Solu-Medrol 40 mg IV every [address] of the chest ordered. Nephrology is following and recommending continuing current dose of Lasix which is 40 mg oral twice daily. 03/23: CAT scan of the chest revealed advanced COPD changes. Suspected associated extensive pulmonary infection correlate clinically. Follow complete resolution. Cannot exclude associated pulmonary edema. The patient was on BiPAP during the night and Ventimask during the day. Dr. Frank recommends continuing IV Solu-Medrol and cefepime. Daily while on IV steroids. YINA, ANCA titers are elevated and sed rate, Legionella ordered., Pulse ox 96% on Ventimask 50% FiO2. BUN 45 and creatinine 1.42. Capillary blood glucoses running 129 -275. Sputum culture finalized with normal respiratory ludy. 03/24: Again today, patient is on Ventimask. Ask if nursing can follow-up with pulmonary medicine regarding level of pulse ox is necessary for this patient. Patient made do fairly well with a lower pulse ox:. Cardiology is following as well as pulmonary medicine and nephrology. Nephrology is planning to continue current dose of Lasix midodrine and Solu-Medrol. He is currently on oral Lasix, Solu-Medrol at 40 mg every 8 hours, DuoNeb treatments 4 times daily and as needed, cefepime 2 g every 12 hours IV piggyback. Once oxygen levels are lower, patient will be discharged. Capillary blood glucose running between 199 and 325. BUN 45 creatinine 1.39. Scheduled NovoLog added to her regime.. 03/25: This morning, patient transition to high flow nasal cannula at 7 L with pulse ox of 88-90%. He is also getting up to a chair this morning. He's been afebrile, heart rate in the 50s, blood pressure 115/41. Repeat blood work reveals electrolytes normal. BUN 48 creatinine 1.86. Blood sugar 255. Sputum culture finalized with normal ludy. Chest x-ray reveals diffuse bilateral interstitial infiltrates with pleural effusion and basilar infiltrates stable. Likely background of COPD. Correlate for interstitial pneumonia. CHF superimposed on background chronic interstitial lung disease also in the differential. Patient is continued on DuoNeb treatments 4 times daily and as needed, Solu-Medrol 40 mg IV every 8 hours 03/26: Patient is doing much better, currently at 5 L nasal cannula, but pulse ox 97%, patient is tolerating a dental his diet, daughter brings nutritional foods from home, which he likes to finish. No aspirated events, edema is resolved from the lower legs, there is no new skin tears, agent is participating with his current therapy, with walker assist. Pulmonary nephrology is following, currently on broad-spectrum antibiotics IV Seprafilm, and IV Solu-Medrol. Patient is off diuretics creatinine 1.36, table by pulse, 109/69, no lightheadedness or dizziness upon standing, was anticipating discharge to home, rather than skilled ECF, in the next 24 hours with home care, patient does not have his own personal home O2, they have something from the that needs to be borrowed discharge planning, for home O2 device needed prior to discharge REVIEW OF SYSTEMS Constitutional: No fever, no chills, no night sweats. No weight change. No weakness, fatigue or lethargy. No daytime sleepiness. EENT: No headache. No blurred vision or double vision, no loss of vision. No loss of Hearing, no ringing in the ears, no dizziness. No nasal drainage or congestion. No epistaxis. No sore throat. Lungs: Continued shortness of breath, cough, no sputum production. No wheezing. Cardiovascular: No chest pain, no lower extremity edema. No palpitations. No paroxysmal nocturnal dyspnea. No orthopnea. No lightheadedness or dizziness. No syncopal episodes. Abdominal: No abdominal pain. No nausea, vomiting. No diarrhea. No constipation. No bloody or tarry stools. No loss of appetite. Genitourinary: No dysuria, increased frequency, urgency. No urinary retention. Musculoskeletal: No myalgias. No muscle weakness, no gait dysfunction, no frequent falls. No back pain. No neck pain. Integumentary: No wounds, no lesions. No rash or pruritus. No unusual bruising. No change in hair or nails. Neurologic: No aphasia. No facial droop. No change in mentation. No head injury. No headache. No paralysis. No paresthesia. Psychiatric: No depression. Reports anxiety. No mood swings. Endocrine: No abnormal blood sugars. No weight change. No excessive sweating or thirst. No cold intolerance. PHYSICAL EXAMINATION Gen: This is a 71-year-old male, resting in bed and appears to be fairly comfortable, currently on O2 at 7 L high flow. HEENT: Head is atraumatic, normocephalic. Pupils equal, round. Sclerae is anicteric. NECK: Supple. No JVD. No lymphadenopathy. No thyromegaly. LUNGS: Crackles bilateral bases. No intercostal retractions. HEART: Irregular rate and rhythm. Systolic murmur. ABDOMEN: Soft. Bowel sounds are present. No masses. No tenderness. EXTREMITIES: No pedal edema. No calf tenderness. NEUROLOGICAL: Patient is awake, alert and oriented x3. Cranial nerves 2 through 12 are grossly intact. ASSESSMENT AND PLAN 1. Persistent atrial flutter with RVR. Patient is seen and followed by cardiology with plan for cardioversion 03/21. Continue patient on eliquis 5 mg twice daily, Lopressor 25 mg 3 times daily, amiodarone 200 mg twice daily. 2. Acute on chronic diastolic heart failure. Continue patient on Lasix 40 mg twice daily. Discontinued 03/25/2022 3. Acute hypoxic hypoxic respiratory failure secondary to underlying pneumonia, pulmonary medicine consult appreciated, patient started on cefepime 2 g IV piggyback every 12 hours and Solu-Medrol 40 mg IV every 8 hours, continue DuoNeb treatments 4 times daily and as needed.. 4. Acute kidney injury secondary to prerenal and cardiorenal syndrome. Patient is followed by nephrology Lasix discontinued as edema has improved just a simple right pleural effusion and Aranesp 40 units every week and monitor orthostatic changes. 5. Hyperlipidemia. Continue atorvastatin 40 mg daily. 6. Hypertension. 7. History of CVA or TIA. 8. Chronic interstitial lung disease, with COPD COPD pleural effusion,. Continue DuoNeb treatments 4 times daily and as needed. Patient was requiring Lasix, this was discontinued earlier this week home O2, required between 2-4 L, manager social or case management, for supplies 9. Mild aortic stenosis. 10. Coronary artery disease status post CABG and PCI 11. GI prophylaxis. 12. DVT prophylaxis. Eliquis 5 mg twice daily. 13. Obstructive sleep apnea with CPAP. 14. Recurrent depression. Continue Seroquel 50 mg at bedtime. 15. Hypotension. Patient was started on midodrine 10 mg 3 times daily. 16. Chronic kidney disease stage III. 17. Diabetes mellitus type 2. Levemir 10 units daily and NovoLog scale, NovoLog 5 units with meals and at bedtime added. DISCHARGE PLAN Home with [facility] most likely by Monday, requiring home O2 device new. Objective - Vital Signs Vital signs: Vital Signs Temp 96.4 F L 03/26/22 15:16 Pulse 72 03/26/22 15:24 Resp 18 03/26/22 15:16 BP 109/69 03/26/22 15:16 Pulse Ox 97 03/26/22 15:16 FiO2 40 03/26/22 04:19 Intake & Output 03/25/22 03/26/22 03/26/22 18:59 06:59 18:59 Intake Total 746 240 236 Output Total 500 775 390 Balance 246 -535 -154 Intake: IV 10 20 Invasive Line 2 10 20 Intake, IV Titration 100 Amount Cefepime 2 gm In Sodium 100 Chloride 0.9% 100 ml @ 25 mls/hr IVPB Q12HR [facility] Rx #:[id number] Oral 736 120 236 Output: Urine 500 775 390 Other: Voiding Method Urinal Bedside Commode Urinal # Voids 1 # Bowel Movements 1 1 - Labs CBC & Chem 7: 03/19/22 07:57 03/26/22 11:31 Labs: Abnormal Lab Results - Last 24 Hours (Table) 07/01/22 07/01/22 07/02/22 Range/Units 16:45 20:55 07:05 BUN (9-20) mg/dL Creatinine (0.66-1.25) mg/dL Glucose (74-99) mg/dL POC Glucose (mg/dL) 178 H 391 H 206 H (70-110) mg/dL 03/26/22 03/26/22 Range/Units 11:31 11:48 BUN 51 H (9-20) mg/dL Creatinine 1.36 H (0.66-1.25) mg/dL Glucose 259 H (74-99) mg/dL POC Glucose (mg/dL) 259 H (70-110) mg/dL
[2022-03-26 16:58] LABS: Glucose,Whole Blood 406 mg/dL (70-110)
[2022-03-26 20:20] LABS: Glucose,Whole Blood 266 mg/dL (70-110)
[2022-03-26] MEDS: QUEtiapine 50 MG TAB PO SCH (20:24)
[2022-03-27] MEDS: MIDODRINE 5 MG TAB PO SCH ×3 (06:41→17:18)
[2022-03-27] MEDS: PANTOPRAZOLE 40 MG TABLET PO SCH (06:44)
[2022-03-27] MEDS: IPRATROPIUM-ALBUTEROL 3 ML NEB INHALATION SCH ×4 (07:14→20:07)
[2022-03-27 07:26] LABS: Glucose,Whole Blood 178 mg/dL (70-110)
[2022-03-27] MEDS: methylPREDNISolone SOD SUCCI 40 MG/ML 1 ML VIAL IV SCH ×2 (07:59→15:12)
[2022-03-27] MEDS: INSULIN DETEMIR (LEVEMIR) 100 UNIT/ML SYR SQ SCH (08:00)
[2022-03-27] MEDS: INSULIN ASPART (NovoLOG) 100 UNIT/ML VIAL SQ SCH ×8 (08:00→20:56)
[2022-03-27] MEDS: DOCUSATE 100 MG CAP PO SCH (08:01)
[2022-03-27] MEDS: APIXABAN 5 MG TAB PO SCH ×2 (08:01→20:55)
[2022-03-27] MEDS: FUROSEMIDE 40 MG TAB PO SCH ×2 (08:01→15:11)
[2022-03-27] MEDS: ATORVASTATIN 40 MG TAB PO SCH (08:01)
[2022-03-27] MEDS: AMIODARONE 200 MG TAB PO SCH (08:01)
[2022-03-27] MEDS: METOPROLOL TARTRATE 25 MG TAB PO SCH ×2 (08:01→20:55)
[2022-03-27] MEDS: CEFEPIME 2 GM in SODIUM CHLORIDE 0.9% 100 ML IVPB SCH ×2 (08:01→15:12)
[2022-03-27 08:17] LABS: Calcium 8.2 mg/dL (8.4-10.2); Magnesium 2.1 mg/dL (1.6-2.3); Potassium 3.2 mmol/L (3.5-5.1)
[2022-03-27] MEDS ORDERED: POTASSIUM CHLORIDE ER 20 MEQ TAB.ER PO STA (09:40)
--- NOTE | 2022-03-27 09:43 | P.PN ---
Subjective Patient is seen in follow-up for acute kidney injury. On oral amiodarone and metoprolol for A. fib. Blood pressure stable. Nonoliguric. Denies chest pain or shortness of breath. Currently on 7 L nasal cannula. On oral Lasix. Renal function stable. No active complaints. Vital signs are stable. General: Awake. No acute distress. HEENT: Head exam is unremarkable. LUNGS: Breath sounds decreased. HEART: Regular rate and rhythm. ABDOMEN: Soft, no distention. EXTREMITITES: No edema. Objective - Vital Signs Vital signs: Vital Signs Temp 97.9 F 03/27/22 07:54 Pulse 67 03/27/22 07:54 Resp 18 03/27/22 07:54 BP 135/58 03/27/22 07:54 Pulse Ox 94 L 03/27/22 07:54 FiO2 40 03/27/22 07:15 Intake & Output 03/26/22 03/27/22 03/27/22 18:59 06:59 18:59 Intake Total 236 360 500 Output Total 870 1250 300 Balance -634 -890 200 Intake: Intake, IV Titration 100 Amount Cefepime 2 gm In Sodium 100 Chloride 0.9% 100 ml @ 25 mls/hr IVPB Q12HR [facility] Rx #:[id number] Oral 236 260 500 Output: Urine 870 1250 300 Other: Voiding Method Bedside Commode Bedside Commode Urinal Urinal - Labs CBC & Chem 7: 03/19/22 07:57 03/27/22 07:49 Labs: Abnormal Lab Results - Last 24 Hours (Table) 03/26/22 03/26/22 03/26/22 Range/Units 11:31 11:48 16:55 Potassium (3.5-5.1) mmol/L BUN 51 H (9-20) mg/dL Creatinine 1.36 H (0.66-1.25) mg/dL Glucose 259 H (74-99) mg/dL POC Glucose (mg/dL) 259 H 406 H (70-110) mg/dL Calcium (8.4-10.2) mg/dL 03/26/22 03/27/22 03/27/22 Range/Units 20:18 07: 07:49 Potassium 3.2 L (3.5-5.1) mmol/L BUN 47 H (9-20) mg/dL Creatinine 1.27 H (0.66-1.25) mg/dL Glucose 190 H (74-99) mg/dL POC Glucose (mg/dL) 266 H 178 H (70-110) mg/dL Calcium 8.2 L (8.4-10.2) mg/dL Assessment and Plan Plan: Assessment: 1. Acute kidney injury secondary to ATN secondary to hypotension and cardiorenal syndrome. Renal function improved. Creatinine 1.27 today. UA benign from February 2022. No hydronephrosis noted on CT done 03/02/2022. 2. Chronic kidney disease stage 2/IIIa with baseline creatinine near 1-1.1 secondary to nephrosclerosis. 3. A. fib with RVR. Cardiology following. On oral amiodarone and metoprolol. status post cardioversion 03/21/2022. 4. Anemia of chronic kidney disease. Iron replete. On Aranesp. 5. Chronic systolic CHF with ejection fraction of 40-45% with mild mitral and tricuspid regurgitation. 6. Concern for adrenal insufficiency with low cortisol level last admission maintained on Cortef. Currently on IV steroids. 7. Hypokalemia from diuresis. Plan: Avoid nephrotoxins. Continue to monitor renal function and urine output. Patient will need to follow-up with endocrinology outpatient for further workup for adrenal insufficiency. Maintain oral Lasix. Replace potassium. Hold midodrine for systolic blood pressure greater than 110.
--- NOTE | 2022-03-27 11:32 | P.PN ---
Subjective Progress Note Date: 03/27/22 71-year-old male who presented to the emergency department on March 12, complaining of shortness of breath. The patient had shortness of breath about a day or so prior to admission. The patient complained about being fatigued. There was no chest pain or palpitations. He denied any cough or phlegm pro duction. No leg pain or leg swelling. The patient apparently denied any chest pain or chest discomfort. We were asked to see the patient today, for shortness of breath. Currently, he's on a 40% Venturi mask. His clinical picture is consistent with CHF. His BMP was elevated. He is on saline at KVO. I placed the patient on BiPAP at 12/5 and 40%, to see we can make him a bit more comfortable. I asked him whether or not he was any better, the same, or any worse since he was admitted. He stated about the same. I did speak to the nurse, Margaret about the patient. She thought the patient was relatively stable and has not deteriorated. The patient apparently has a history of atrial fibri llation, diabetes, GERD, hyperlipidemia, hypertension, myocardial infarction, chronic renal insufficiency, mild aortic stenosis, and possible COPD from previous tobacco use. The patient is also had heart catheterization with stent placement, and bypass grafting. White count 10.6, hemoglobin 9.5, hematocrit 31.2, and platelet count 355,000. Sodium 142, potassium 4.1, chlorides 105, CO2 25, anion gap 12, BUN 36, and creatinine 1.15. On admission, his N-terminal proBNP was 10,800. Chest x-ray in my opinion is consistent with fluid overload/CHF, and interstitial edema. The patient does have bilateral pleural effusions. Progress note dated 03/18/2022. 71-year-old male seen yesterday in consultation. Please see the note above. Today, the patient's feeling better. Yesterday, he was placed on BiPAP, with settings of 12/5 and 40%. Currently, he's using a 40% Venturi mask. I explained to the patient, they he could go back on BiPAP anytime he wishes. The BiPAP will be especially useful for his congestive heart failure. White count 10.9, hemoglobin 9.9, hematocrit 32.1, and platelet count 409,000. Sodium 139, potassium 3.4, chlorides 102, CO2 25, anion gap 12, BUN 35, and creatinine 1.30. Calcium is 8.3. Chest x-ray from March 17 is evaluated. Progress note dated 03/20/2022. 71-year-old male seen in consultation on the . The patient was admitted with a diagnosis of CHF. Because of worsening respiratory distress, we placed him on BiPAP, with settings of 12/5 and 40%. When not using BiPAP, the patient could use a 40% Venturi mask, or nasal cannula. Clinically, the patient's feeling much better. He has been receiving Lasix. No new labs today other than a glucose of 151. Chest x-ray from March 19, was reviewed already. on 03/21/2022, the patient is being seen for a follow-up. I reviewed the records. The patient has been in the hospital for almost a week complaining of shortness of breath and ongoing issues with hypoxic respiratory failure without any much improvement. This morning, the patient had based on oxygen with a 40% Ventimaskand he was still having labored breathing. He was still tachycardic and a heart rate seemed to be in flutter in the rate of 140.blood gases was done today that showed a combination of respiratory and metabolic alkalosis. The patient had a pH of 7.6 with a pCO2 of 31 and pO2 of 67. Note that the patient was being diuresed aggressively with diuresis with IV Lasix and the patient was responding knowing that his initial presentation was most consistent with CHF. Electrodes from today still pending. From yesterday, the serum bicarb was a 28 with a mean of 37 and a creatinine of 1.4.the patient remains in flutter rhythm. The patient is being considered forcardioversion following a NU and this will be done by cardiology. The patient has no lower extremity edema. No other new complaints otherwise for now. No angina. No palpitation. Chest x-ray still showing bilateral pulmonary infiltrates more so with a peripheral distribution. There is also crackles in lung bases bilaterally on today's examination. 03/22/2022, the patient is being seen for a follow-up. Note that the patient's is an acute hypoxic respiratory failure and the patient is currently on a 40% Ventimask. No improvement in oxygenation and repeat chest x-ray was done showing diffuse bilateral pulmonary infiltrates with no interval change compared to the earlier chest x-rays. Note that there is a diffuse reticular another interstitial pattern along with cardiomegaly. Obviously the initial concern that this was CHF. Nevertheless, possibility of an underlying infectious or postinfectious causes/ARDS cannot be completely ruled out. Based on that, I would suggest further investigation. The patient is afebrile. The patient is hemodynamically stable. On today's blood work, his BUN is 45 with a creatinine of 1.4 and sodium level is at 138 and the patient was switched to oral Lasix. Note that his initial proBNP level was quite elevated supporting the diagnosis of CHF. Nevertheless, the response to the diuretics was suboptimal. Also, the patient underwent cardioversion yesterday and his cardiac rhythm is back to sinus. He remains on anticoagulants. He is started on IV Rocephin 03/23/2022, the patient remains hypoxic with a 50% Ventimask. Further investigation was done and this included a CAT scan of the chest that was completed yesterday without contrast and the CAT scan showed extensive disease with diffuse bilateral pulmonary consolidation and alveolar opacities most evident in the right lung and the relatively sparing the left lower lobe and this is suggestive of an acute infectious pneumonia. Underlying CHF is doubtful. The patient has small bilateral pleural effusion and cardiomegaly. On examination, he does have some coarse crackles in the lung bases bilaterally. Note that these are of a new onset knowing that 3 weeks ago, his infiltrates were not present. The patient did not respond well to diuretics. His BUN is at 45 with a creatinine of 1.4 and the patient is currently on oral Lasix. I also discontinued the IV Rocephin and put the patient on cefepime 2 g every 12 hours and the patient is also on IV Solu-Medrol 40 mg every 8 hours. No interval worsening shortness of breath. He is unable to breathe through his nose and he prefers the Ventimask for now. On and off she is also using the BiPAP. His cardiac rhythm is NSR controlled rate and there is no rapid ventricular response post cardioversion. 03/24/2022, the patient is feeling well. The patient remains on a 50% Ventimask and he prefers to be on a Ventimask as the patient is unable to take oxygen through his nostrils. No significant chest pain. He feels less short of breath compared to yesterday. Pulse ox is in the high 90s for now. He remains on IV cefepime. He remains on IV Solu-Medrol. No fever. No chills. No sweats. No other new complaints otherwise. His cardiac rhythm remains sinus and the patient is currently on oral amiodarone and the patient is also on Eliquis 5 mg by mouth twice a day.blood work from today includes electrolytes and the patient's creatinine is stable at 1.35 with a mean of 45 and his sodium level of 141. His connective tissue disease workup thus far has been negative. Legionella urine antigen was also negative. On 03/25/2022 , the patient is feeling well. The patient sitting up on a chair. He got himself off the Ventimask and the patient is currently on a nasal cannula at 7 L per minute. The patient is doing well. His oxidation is above 90%. He feels less short of breath. I had the patient on IV Solu Medrol 40 mg every 8 hours. He is also on IV cefepime. A repeat chest x-ray was done and it showed unchanged bilateral airspace disease and infiltrates which remains essentially unchanged. The patient is currently on oral Lasix 40 mg by mouth daily. Afebrile. The blood work from today showing a mean of 48 with a creatinine of 1.8. Sodium is at 141. Glucose is 161 and today's evaluation with a calcium level of 8.3. He has no complaints otherwise for now. No chest pain. Legionella urine antigen was negative. Connective tissue disease workup was also negative. 03/26/2022, the patient is stable 7 L of oxygen by nasal cannula. In the pulse ox in the order of 96%. No chest pain. No significant shortness of breath. Creatinine from yesterday was 1.8 and the findings on the case. The patient is currently on broad-spectrum antibiotics and the patient is currently on IV cefepime. The patient IV Solu-Medrol. The patient is on amiodarone 200 mg by mouth daily. He is also on Toprol 25 mg twice a day. Cardiac rhythm is sinus. He is off diuretics. 03/27/2022, no complaints, improving and the patient is currently on 5 L O2 nasal cannula. Remains on steroids and the patient is currently receiving IV Solu Medrol for every 8 hours and the patient is also on IV cefepime. He is tolerating his diet. His creatinine is stable at 1.2 with a BUN of 47 and the sodium level of 139. Noticed issues otherwise for now. He reports improvement in his shortness of breath. His kidney failure is improved as the patient was taken off the diuretics. Objective - Vital Signs Vital signs: Vital Signs Temp 97.9 F 03/27/22 07:54 Pulse 62 03/27/22 11:17 Resp 18 03/27/22 11:17 BP 135/58 03/27/22 07:54 Pulse Ox 95 03/27/22 11:07 FiO2 40 03/27/22 07:15 Intake & Output 03/26/22 03/27/22 03/27/22 18:59 06:59 18:59 Intake Total 236 360 500 Output Total 870 1250 300 Balance -634 -890 200 Intake: Intake, IV Titration 100 Amount Cefepime 2 gm In Sodium 100 Chloride 0.9% 100 ml @ 25 mls/hr IVPB Q12HR [facility] Rx #:[id number] Oral 236 260 500 Output: Urine 870 1250 300 Other: Voiding Method Bedside Commode Bedside Commode Urinal Urinal - Exam No acute distress, oriented 3. Sitting up in bed,, on 5 L of oxygen nasal cannula Head exam was generally normal. There was no scleral icterus or corneal arcus. Mucous membranes were moist.. HEENT examination is grossly unremarkable. Neck supple. Full range of motion. No adenopathy thyromegaly or neck vein distention. Cardiovascular examination reveals regular rhythm rate. S1-S2 normal. No S3 or S4. Lungs reveal scattered mild to moderate crackles and rhonchi. Breath sounds equal bilaterally. No wheezes. Abdomen soft bowel sounds are heard. No masses or tenderness. Extremities are intact. No cyanosis clubbing or edema. Skin is without rash or lesion. Neurologic examination is brief but nonfocal. - Labs CBC & Chem 7: 03/19/22 07:57 03/27/22 07:49 Labs: Abnormal Lab Results - Last 24 Hours (Table) 03/26/22 03/26/22 03/26/22 Range/Units 11:31 11:48 16:55 Potassium (3.5-5.1) mmol/L BUN 51 H (9-20) mg/dL Creatinine 1.36 H (0.66-1.25) mg/dL Glucose 259 H (74-99) mg/dL POC Glucose (mg/dL) 259 H 406 H (70-110) mg/dL Calcium (8.4-10.2) mg/dL 03/26/22 03/27/22 03/27/22 Range/Units 20:18 07:22 07:49 Potassium 3.2 L (3.5-5.1) mmol/L BUN 47 H (9-20) mg/dL Creatinine 1.27 H (0.66-1.25) mg/dL Glucose 190 H (74-99) mg/dL POC Glucose (mg/dL) 266 H 178 H (70-110) mg/dL Calcium 8.2 L (8.4-10.2) mg/dL Assessment and Plan Plan: Shortness of breath, with diffuse bilateral pulmonary infiltrates and secondary hypoxic respiratory failure, and the presentation is not consistent with CHF. The patient did not respond to diuresis. This is an acute lung injury/ARDS, exact underlying etiology is not clear and the patient is taking sometimes recovers. The patient oxygenation is improved and the patient is currently on 5 L of O2 nasal cannula. Connective tissue disease workup was negative. Legionella urine antigen was negative. COVID 19 testing was negative. Influenza screen was negative. The patient is clinically improving Acute hypoxic respiratory failure remains on O2 at 5 L nasal cannula History of chronic atrial fibrillation/atrial flutter. Anticoagulation with Amanda donnie History of CAD, status post bypass grafting, as well as heart catheterization with stent placement. History of CVA. Diabetes mellitus. History of myocardial infarction. Hypertension. Hyperlipidemia. History of possible COPD, secondary to prior tobacco use. Mild aortic stenosis. respiratory/metabolic alkalosis Plan Clinically improving Currently the patient is on 5 L of O2 nasal cannula. Chest x-ray will be repeated tomorrow Hold diuretics and monitor renal function and creatinine is improving is down to 1.27 CAT scan of the chest that was done noncontrast study was noted and is consistent with postinfectious changes including possibility of ARDS or acute interstitial pneumonia continue Solu-Medrol 40 mg every 12 hours The patient is post synchronized cardioversion Repeat electrolytes today is unchanged Monitor renal function, renal function is stable Continue metoprolol 12.5 mg 3 times a day Continue amiodarone 200 mg by mouth twice a day on likely to be related to amiodarone-related toxicity and the patient is currently on 200 mg of amiodarone once daily Continue anticoagulation with Eliquis Increase mobility Incentive spirometer We'll continue to follow.
--- NOTE | 2022-03-27 11:39 | P.PN ---
Subjective Progress Note Date: 03/27/22 HISTORY OF PRESENT ILLNESS 71-year-old male who was recently admitted with CHF acute exacerbation also relative hypotension. Patient becoming more hypoxic requiring Ventimask with pulmonary following and being transitioned to BiPAP. Patient with extensive weakness and recommending continued PT/OT. Chest x-ray for today ordered and pending at this time. Patient is being followed by cardiology and pulmonary has been consulted. Patient is currently afebrile and denies chest pain or palpitations. Patient is tolerating diet with no reports of nausea or vomiting noted. Patient is afebrile. Patient is maintained on IV antibiotics in the form of ceftriaxone and will continue. Also recommend continue with breathing inhalational treatments and patient has been started on IV Solu-Cortef and will continue. Patient continues on midodrine for hypotension. Patient did receive a stat dose of IV Lasix today. 03/19/2022 Patient is seen and evaluated in follow-up on the selective care unit. He is currently resting comfortably in bed. Awake and alert in no acute distress. Patient is maintained on BiPAP 12/5 and 40% FiO2. Chest x-ray reveals persistent diffuse bilateral right greater than left reticular nodular infiltrates. Overall appearance is stable. Sputum culture revealed no growth. White count 7.7. Hemoglobin 8.8. Platelets 266. Sodium 137. Potassium 4.0. BUN 35. Creatinine 1.32. Glucose 119. He is continued on DuoNeb inhalations, Solu-Cortef, IV diuretics. Anticoagulated with Eliquis. Antibiotics in the form of ceftriaxone. 03/20/2022 Patient is seen and evaluated resting in bed; currently on 40% Ventimask; O2 saturation maintaining around 90%; BiPAP to be used as needed Vital signs are reviewed with temperature 97.9, pulse 122, respiration 22 and blood pressure of 95/61 with O2 saturation of 90% on an FiO2 of 40% Lab review shows sodium 136, potassium 3.2, BUN/creatinine of 37/1.41; blood glucoses ranging between 151-209 Patient remains in atrial flutter with RVR; cardiology is following with plans for possible NU cardioversion tomorrow morning Remains on Lasix 40 mg IV twice a day for CHF exacerbation; nephro on board for acute renal injury secondary to cardiorenal syndrome; creatinine remained stable at 1.3 03/21: Patient has been seen and followed by cardiology and pulmonary medicine. Patient is scheduled for cardioversion today. Patient states he is not feeling better today. No chest pain, palpitations, no significant shortness of breath at rest. He has been afebrile, heart rate in the 120s, blood pressure 91/52, pulse ox 90% on 40% Ventimask. Capillary blood glucose running between 119 and 300. ABGs pH 7.6, pCO2 31, pO2 67, sodium bicarb 30, total CO2 31, O2 saturation 95.1. Base excess 8.6. Patient is also followed by nephrology for acute kidney injury. 03/22: Yesterday, patient underwent successful NU and cardioversion and converted to sinus rhythm which is maintained. Patient is currently on a 40% Ventimask and unfortunately his pulse ox drops down to 85% without the Ventimask, maintaining at 91% with. Repeat chest x-ray reveals stable chest x- ray correlate for interstitial fibrosis with superimposed CHF or interstitial pneumonitis. Patient is followed closely by pulmonary medicine and patient started on cefepime, Solu-Medrol 40 mg IV every [address] of the chest ordered. Nephrology is following and recommending continuing current dose of Lasix which is 40 mg oral twice daily. 03/23: CAT scan of the chest revealed advanced COPD changes. Suspected associated extensive pulmonary infection correlate clinically. Follow complete resolution. Cannot exclude associated pulmonary edema. The patient was on BiPAP during the night and Ventimask during the day. Dr. Frank recommends continuing IV Solu-Medrol and cefepime. Daily while on IV steroids. YINA, ANCA titers are elevated and sed rate, Legionella ordered., Pulse ox 96% on Ventimask 50% FiO2. BUN 45 and creatinine 1.42. Capillary blood glucoses running 129 -275. Sputum culture finalized with normal respiratory ludy. 03/24: Again today, patient is on Ventimask. Ask if nursing can follow-up with pulmonary medicine regarding level of pulse ox is necessary for this patient. Patient made do fairly well with a lower pulse ox:. Cardiology is following as well as pulmonary medicine and nephrology. Nephrology is planning to continue current dose of Lasix midodrine and Solu-Medrol. He is currently on oral Lasix, Solu-Medrol at 40 mg every 8 hours, DuoNeb treatments 4 times daily and as needed, cefepime 2 g every 12 hours IV piggyback. Once oxygen levels are lower, patient will be discharged. Capillary blood glucose running between 199 and 325. BUN 45 creatinine 1.39. Scheduled NovoLog added to her regime.. 03/25: This morning, patient transition to high flow nasal cannula at 7 L with pulse ox of 88-90%. He is also getting up to a chair this morning. He's been afebrile, heart rate in the 50s, blood pressure 115/41. Repeat blood work reveals electrolytes normal. BUN 48 creatinine 1.86. Blood sugar 255. Sputum culture finalized with normal ludy. Chest x-ray reveals diffuse bilateral interstitial infiltrates with pleural effusion and basilar infiltrates stable. Likely background of COPD. Correlate for interstitial pneumonia. CHF superimposed on background chronic interstitial lung disease also in the differential. Patient is continued on DuoNeb treatments 4 times daily and as needed, Solu-Medrol 40 mg IV every 8 hours 03/26: Patient is doing much better, currently at 5 L nasal cannula, but pulse ox 97%, patient is tolerating a dental his diet, daughter brings nutritional foods from home, which he likes to finish. No aspirated events, edema is resolved from the lower legs, there is no new skin tears, agent is participating with his current therapy, with walker assist. Pulmonary nephrology is following, currently on broad-spectrum antibiotics IV Seprafilm, and IV Solu-Medrol. Patient is off diuretics creatinine 1.36, table by pulse, 109/69, no lightheadedness or dizziness upon standing, was anticipating discharge to home, rather than skilled ECF, in the next 24 hours with home care, patient does not have his own personal home O2, they have something from the that needs to be borrowed discharge planning, for home O2 device needed prior to discharge 03/27: Patient is still progressing well, appetite is okay without any aspiration, has 4 L room air 95%, no fever no chills, discharge planning is in progress, most likely would need home O2, to be provided prior for discharge. Vital vital signs are stable, no new problems at this time, home therapy is expected REVIEW OF SYSTEMS Constitutional: No fever, no chills, no night sweats. No weight change. No weakness, fatigue or lethargy. No daytime sleepiness. EENT: No headache. No blurred vision or double vision, no loss of vision. No loss of Hearing, no ringing in the ears, no dizziness. No nasal drainage or congestion. No epistaxis. No sore throat. Lungs: Continued shortness of breath, cough, no sputum production. No wheezing. Cardiovascular: No chest pain, no lower extremity edema. No palpitations. No paroxysmal nocturnal dyspnea. No orthopnea. No lightheadedness or dizziness. No syncopal episodes. Abdominal: No abdominal pain. No nausea, vomiting. No diarrhea. No constipation. No bloody or tarry stools. No loss of appetite. Genitourinary: No dysuria, increased frequency, urgency. No urinary retention. Musculoskeletal: No myalgias. No muscle weakness, no gait dysfunction, no frequent falls. No back pain. No neck pain. Integumentary: No wounds, no lesions. No rash or pruritus. No unusual bruising. No change in hair or nails. Neurologic: No aphasia. No facial droop. No change in mentation. No head injury. No headache. No paralysis. No paresthesia. Psychiatric: No depression. Reports anxiety. No mood swings. Endocrine: No abnormal blood sugars. No weight change. No excessive sweating or thirst. No cold intolerance. PHYSICAL EXAMINATION Gen: This is a 71-year-old male, resting in bed and appears to be fairly comfortable, currently on O2 at 7 L high flow. HEENT: Head is atraumatic, normocephalic. Pupils equal, round. Sclerae is anicteric. NECK: Supple. No JVD. No lymphadenopathy. No thyromegaly. LUNGS: Crackles bilateral bases. No intercostal retractions. HEART: Irregular rate and rhythm. Systolic murmur. ABDOMEN: Soft. Bowel sounds are present. No masses. No tenderness. EXTREMITIES: No pedal edema. No calf tenderness. NEUROLOGICAL: Patient is awake, alert and oriented x3. Cranial nerves 2 through 12 are grossly intact. ASSESSMENT AND PLAN 1. Persistent atrial flutter with RVR. Patient is seen and followed by cardiology with plan for cardioversion 03/21. Continue patient on eliquis 5 mg twice daily, Lopressor 25 mg 3 times daily, amiodarone 200 mg twice daily. 2. Acute on chronic diastolic heart failure. Continue patient on Lasix 40 mg twice daily. Discontinued 03/25/2022 3. Acute hypoxic hypoxic respiratory failure secondary to underlying pneumonia, pulmonary medicine consult appreciated, patient started on cefepime 2 g IV piggyback every 12 hours and Solu-Medrol 40 mg IV every 8 hours, continue DuoNeb treatments 4 times daily and as needed.. 4. Acute kidney injury secondary to prerenal and cardiorenal syndrome. Patient is followed by nephrology Lasix discontinued as edema has improved just a simple right pleural effusion and Aranesp 40 units every week and monitor orthostatic changes. 5. Hyperlipidemia. Continue atorvastatin 40 mg daily. 6. Hypertension. 7. History of CVA or TIA. 8. Chronic interstitial lung disease, with COPD COPD pleural effusion,. Continue DuoNeb treatments 4 times daily and as needed. Patient was requiring Lasix, this was discontinued earlier this week home O2, required between 2-4 L, psychiatric social worker or case management, for supplies 9. Mild aortic stenosis. 10. Coronary artery disease status post CABG and PCI 11. GI prophylaxis. 12. DVT prophylaxis. Eliquis 5 mg twice daily. 13. Obstructive sleep apnea with CPAP. 14. Recurrent depression. Continue Seroquel 50 mg at bedtime. 15. Hypotension. Patient was started on midodrine 10 mg 3 times daily. 16. Chronic kidney disease stage III. 17. Diabetes mellitus type 2. Levemir 10 units daily and NovoLog scale, Chel Log 5 units with meals and at bedtime added. DISCHARGE PLAN Home with [facility] most likely by Monday, requiring home O2 device new. Laboratory Results - Last 24 Hours 03/26/22 03/26/22 03/26/22 11:31 11:48 16:55 Sodium 139 Potassium 3.6 Chloride 100 Carbon Dioxide 29 Anion Gap 10 BUN 51 H Creatinine 1.36 H Est GFR (CKD-EPI)AfAm 61 Est GFR (CKD-EPI)NonAf 53 Glucose 259 H POC Glucose (mg/dL) 259 H 406 H POC Glu Shop Lead ID Paloma, Janine Dow, Janine Calcium 8.5 Magnesium 2.2 03/26/22 03/27/22 03/27/22 20:18 07:22 07:49 Sodium 139 Potassium 3.2 L Chloride 100 Carbon Dioxide 29 Anion Gap 10 BUN 47 H Creatinine 1.27 H Est GFR (CKD-EPI)AfAm 66 Est GFR (CKD-EPI)NonAf 57 Glucose 190 H POC Glucose (mg/dL) 266 H 178 H POC Glu Shop Lead ID Eduin, Gricelda Dow, Janine Calcium 8.2 L Magnesium 2.1 Vital Signs - 24 hr 03/26/22 03/26/22 03/26/22 11:50 11:57 15:13 Temperature Pulse Rate 60 64 68 Pulse Rate [ Pulse Oximetery ] Pulse Rate [ Supine Security Installer] Respiratory Rate Blood Pressure [Left Arm] O2 Sat by Pulse 92 L Oximetry Fraction of Inspired Oxygen (FIO2) 03/26/22 03/26/22 03/26/22 15:16 15:24 20:00 Temperature 96.4 F L 97.5 F L Pulse Rate 72 Pulse Rate [ 64 56 L Pulse Oximetery ] Pulse Rate [ Supine Security Installer] Respiratory 18 18 Rate Blood Pressure 109/69 135/63 [Left Arm] O2 Sat by Pulse 97 85 L Oximetry Fraction of Inspired Oxygen (FIO2) 03/26/22 03/26/22 03/27/22 20:04 20:17 00:00 Temperature 98.2 F Pulse Rate 59 L 65 Pulse Rate [ Pulse Oximetery ] Pulse Rate [ 59 L Supine Security Installer] Respiratory 18 Rate Blood Pressure 142/62 [Left Arm] O2 Sat by Pulse 92 L Oximetry Fraction of Inspired Oxygen (FIO2) 03/27/22 03/27/22 03/27/22 00:31 03:53 04:00 Temperature 98.2 F Pulse Rate Pulse Rate [ Pulse Oximetery ] Pulse Rate [ 57 L Supine Security Installer] Respiratory 19 Rate Blood Pressure 143/60 [Left Arm] O2 Sat by Pulse 100 Oximetry Fraction of 40 40 40 Inspired Oxygen (FIO2) 03/27/22 03/27/22 03/27/22 07:15 07:26 07:54 Temperature 97.9 F Pulse Rate 59 L 62 Pulse Rate [ 67 Pulse Oximetery ] Pulse Rate [ Supine Security Installer] Respiratory 16 18 18 Rate Blood Pressure 135/58 [Left Arm] O2 Sat by Pulse 97 94 L Oximetry Fraction of 40 Inspired Oxygen (FIO2) 03/27/22 03/27/22 03/27/22 11:04 11:07 11:17 Temperature Pulse Rate 58 L 62 Pulse Rate [ Pulse Oximetery ] Pulse Rate [ Supine Security Installer] Respiratory 18 18 Rate Blood Pressure [Left Arm] O2 Sat by Pulse 95 Oximetry Fraction of Inspired Oxygen (FIO2) Objective - Vital Signs Vital signs: Vital Signs Temp 97.9 F 03/27/22 07:54 Pulse 62 03/27/22 11:17 Resp 18 03/27/22 11:17 BP 135/58 03/27/22 07:54 Pulse Ox 95 03/27/22 11:07 FiO2 40 03/27/22 07:15 Intake & Output 03/26/22 03/27/22 03/27/22 18:59 06:59 18:59 Intake Total 236 360 500 Output Total 870 1250 300 Balance -634 -890 200 Intake: Intake, IV Titration 100 Amount Cefepime 2 gm In Sodium 100 Chloride 0.9% 100 ml @ 25 mls/hr IVPB Q12HR [facility] Rx #:[id number] Oral 236 260 500 Output: Urine 870 1250 300 Other: Voiding Method Bedside Commode Bedside Commode Urinal Urinal - Labs CBC & Chem 7: 03/19/22 07:57 03/27/22 07:49 Labs: Abnormal Lab Results - Last 24 Hours (Table) 03/26/22 03/26/22 03/26/22 Range/Units 11:31 11:48 16:55 Potassium (3.5-5.1) mmol/L BUN 51 H (9-20) mg/dL Creatinine 1.36 H (0.66-1.25) mg/dL Glucose 259 H (74-99) mg/dL POC Glucose (mg/dL) 259 H 406 H (70-110) mg/dL Calcium (8.4-10.2) mg/dL 03/26/22 03/27/22 03/27/22 Range/Units 20:18 07:22 07:49 Potassium 3.2 L (3.5-5.1) mmol/L BUN 47 H (9-20) mg/dL Creatinine 1.27 H (0.66-1.25) mg/dL Glucose 190 H (74-99) mg/dL POC Glucose (mg/dL) 266 H 178 H (70-110) mg/dL Calcium 8.2 L (8.4-10.2) mg/dL
[2022-03-27 12:00] LABS: Glucose,Whole Blood 130 mg/dL (70-110)
[2022-03-27] MEDS: POTASSIUM CHLORIDE ER 10 MEQ TAB.ER.PRT PO SCH ×2 (13:04→15:11)
[2022-03-27 16:58] LABS: Glucose,Whole Blood 223 mg/dL (70-110)
[2022-03-27 20:20] LABS: Glucose,Whole Blood 269 mg/dL (70-110)
[2022-03-27] MEDS: QUEtiapine 50 MG TAB PO SCH (20:55)
[2022-03-28] MEDS: CEFEPIME 2 GM in SODIUM CHLORIDE 0.9% 100 ML IVPB SCH ×4 (00:09→23:34)
[2022-03-28] MEDS: methylPREDNISolone SOD SUCCI 40 MG/ML 1 ML VIAL IV SCH ×2 (00:09→09:20)
[2022-03-28] MEDS: MIDODRINE 5 MG TAB PO SCH ×3 (06:09→17:12)
[2022-03-28 06:58] LABS: Glucose,Whole Blood 212 mg/dL (70-110)
[2022-03-28] MEDS: INSULIN DETEMIR (LEVEMIR) 100 UNIT/ML SYR SQ SCH (07:03)
[2022-03-28] MEDS: INSULIN ASPART (NovoLOG) 100 UNIT/ML VIAL SQ SCH ×8 (07:03→20:28)
[2022-03-28] MEDS: PANTOPRAZOLE 40 MG TABLET PO SCH (07:04)
--- NOTE | 2022-03-28 07:50 | XR ---
EXAMINATION TYPE: XR chest 1V DATE OF EXAM: 03/28/2022 6:29 AM COMPARISON: Chest radiographs from 03/25/2022, CT chest 03/14/2022 TECHNIQUE: XR chest 1V Portable AP radiograph of the chest. CLINICAL INDICATION:Male, 71 years old with history of HYPOXIA; FINDINGS: Lungs/Pleura: Similar multifocal airspace opacities. Superimposed COPD changes are also present. No e vidence of pneumothorax or pleural effusion. Pulmonary vascularity: Unremarkable. Heart/mediastinum: Cardiomediastinal silhouette is unremarkable. Musculoskeletal: No acute osseous pathology. Midline sternotomy wires are noted and stable. IMPRESSION: Grossly similar exam with COPD changes superimposed on airspace disease with underlying suspected harmony e degree of pulmonary fibrosis. These are better characterized on CT 03/22/2022.
[2022-03-28] MEDS: IPRATROPIUM-ALBUTEROL 3 ML NEB INHALATION SCH ×4 (08:49→21:06)
[2022-03-28 08:52] LABS: Calcium 8.3 mg/dL (8.4-10.2); Magnesium 2.2 mg/dL (1.6-2.3); Potassium 3.6 mmol/L (3.5-5.1)
[2022-03-28] MEDS: AMIODARONE 200 MG TAB PO SCH (09:21)
[2022-03-28] MEDS: APIXABAN 5 MG TAB PO SCH ×2 (09:21→20:27)
[2022-03-28] MEDS: DOCUSATE 100 MG CAP PO SCH (09:21)
[2022-03-28] MEDS: FUROSEMIDE 40 MG TAB PO SCH ×2 (09:21→17:11)
[2022-03-28] MEDS: ATORVASTATIN 40 MG TAB PO SCH (09:21)
[2022-03-28] MEDS: METOPROLOL TARTRATE 25 MG TAB PO SCH ×2 (09:21→20:27)
[2022-03-28] MEDS: POTASSIUM CHLORIDE ER 20 MEQ TAB.ER PO SCH (09:21)
--- NOTE | 2022-03-28 09:24 | P.PN ---
Subjective Patient is seen in follow-up for acute kidney injury. On oral amiodarone and metoprolol for A. fib. Blood pressure stable. Nonoliguric. Denies chest pain or shortness of breath. Currently on 4 L nasal cannula. On oral Lasix. Renal function stable. No active complaints. Vital signs are stable. General: Awake. No acute distress. HEENT: Head exam is unremarkable. LUNGS: Breath sounds decreased. HEART: Regular rate and rhythm. ABDOMEN: Soft, no distention. EXTREMITITES: No edema. Objective - Vital Signs Vital signs: Vital Signs Temp 97.9 F 03/28/22 09:12 Pulse 59 L 03/28/22 09:12 Resp 16 03/28/22 09:12 BP 122/56 03/28/22 09:12 Pulse Ox 92 L 03/28/22 09:12 FiO2 40 03/28/22 04:00 Intake & Output 03/27/22 03/28/22 03/28/22 18:59 06:59 18:59 Intake Total 740 240 458 Output Total 1200 300 450 Balance -460 -60 8 Intake: Intake, IV Titration 340 Amount Cefepime 2 gm In Sodium 100 Chloride 0.9% 100 ml @ 25 mls/hr IVPB Q8HR [facility] Rx# :[id number] Sodium Chloride 0.9% 1, 240 000 ml @ 0 mls/hr IV .[facility] Rx#:[id number] Oral 740 240 118 Output: Urine 1200 300 450 Other: Voiding Method Bedside Commode Bedside Commode Urinal Urinal # Voids 1 2 # Bowel Movements 1 - Labs CBC & Chem 7: 03/19/22 07:57 03/28/22 08:11 Labs: Abnormal Lab Results - Last 24 Hours (Table) 03/27/22 03/27/22 03/27/22 Range/Units 11:58 16:56 20:19 BUN (9-20) mg/dL Creatinine (0.66-1.25) mg/dL Glucose (74-99) mg/dL POC Glucose (mg/dL) 130 H 223 H 269 H (70-110) mg/dL Calcium (8.4-10.2) mg/dL 03/28/22 03/28/22 Range/Units 06:56 08:11 BUN 46 H (9-20) mg/dL Creatinine 1.31 H (0.66-1.25) mg/dL Glucose 216 H (74-99) mg/dL POC Glucose (mg/dL) 212 H (70-110) mg/dL Calcium 8.3 L (8.4-10.2) mg/dL Assessment and Plan Plan: Assessment: 1. Acute kidney injury secondary to ATN secondary to hypotension and cardiorenal syndrome. Renal function has been fairly stable. UA benign from February 2022. No hydronephrosis noted on CT done 03/02/2022. 2. Chronic kidney disease stage 2/IIIa with baseline creatinine near 1-1.1 secondary to nephrosclerosis. 3. A. fib with RVR. Cardiology following. On oral amiodarone and metoprolol. status post cardioversion 03/21/2022. 4. Anemia of chronic kidney disease. Iron replete. On Aranesp. 5. Chronic systolic CHF with ejection fraction of 40-45% with mild mitral and tricuspid regurgitation. 6. Concern for adrenal insufficiency with low cortisol level last admission maintained on Cortef. Currently on IV steroids. 7. Hypokalemia from diuresis. Replace. Better. Plan: Avoid nephrotoxins. Continue to monitor renal function and urine output. Patient will need to follow-up with endocrinology outpatient for further workup for adrenal insufficiency. Maintain oral Lasix. Maintain potassium supplementation. Hold midodrine for systolic blood pressure greater than 110.
[2022-03-28 12:16] LABS: Glucose,Whole Blood 215 mg/dL (70-110)
--- NOTE | 2022-03-28 13:30 | P.PN ---
Subjective Progress Note Date: 03/28/22 HISTORY OF PRESENT ILLNESS 71-year-old male who was recently admitted with CHF acute exacerbation also relative hypotension. Patient becoming more hypoxic requiring Ventimask with pulmonary following and being transitioned to BiPAP. Patient with extensive weakness and recommending continued PT/OT. Chest x-ray for today ordered and pending at this time. Patient is being followed by cardiology and pulmonary has been consulted. Patient is currently afebrile and denies chest pain or palpitations. Patient is tolerating diet with no reports of nausea or vomiting noted. Patient is afebrile. Patient is maintained on IV antibiotics in the form of ceftriaxone and will continue. Also recommend continue with breathing inhalational treatments and patient has been started on IV Solu-Cortef and will continue. Patient continues on midodrine for hypotension. Patient did receive a stat dose of IV Lasix today. 03/19/2022 Patient is seen and evaluated in follow-up on the selective care unit. He is currently resting comfortably in bed. Awake and alert in no acute distress. Patient is maintained on BiPAP 12/5 and 40% FiO2. Chest x-ray reveals persistent diffuse bilateral right greater than left reticular nodular infiltrates. Overall appearance is stable. Sputum culture revealed no growth. White count 7.7. Hemoglobin 8.8. Platelets 266. Sodium 137. Potassium 4.0. BUN 35. Creatinine 1.32. Glucose 119. He is continued on DuoNeb inhalations, Solu-Cortef, IV diuretics. Anticoagulated with Eliquis. Antibiotics in the form of ceftriaxone. 03/20/2022 Patient is seen and evaluated resting in bed; currently on 40% Ventimask; O2 saturation maintaining around 90%; BiPAP to be used as needed Vital signs are reviewed with temperature 97.9, pulse 122, respiration 22 and blood pressure of 95/61 with O2 saturation of 90% on an FiO2 of 40% Lab review shows sodium 136, potassium 3.2, BUN/creatinine of 37/1.41; blood glucoses ranging between 151-209 Patient remains in atrial flutter with RVR; cardiology is following with plans for possible NU cardioversion tomorrow morning Remains on Lasix 40 mg IV twice a day for CHF exacerbation; nephro on board for acute renal injury secondary to cardiorenal syndrome; creatinine remained stable at 1.3 03/21: Patient has been seen and followed by cardiology and pulmonary medicine. Patient is scheduled for cardioversion today. Patient states he is not feeling better today. No chest pain, palpitations, no significant shortness of breath at rest. He has been afebrile, heart rate in the 120s, blood pressure 91/52, pulse ox 90% on 40% Ventimask. Capillary blood glucose running between 119 and 300. ABGs pH 7.6, pCO2 31, pO2 67, sodium bicarb 30, total CO2 31, O2 saturation 95.1. Base excess 8.6. Patient is also followed by nephrology for acute kidney injury. 03/22: Yesterday, patient underwent successful NU and cardioversion and converted to sinus rhythm which is maintained. Patient is currently on a 40% Ventimask and unfortunately his pulse ox drops down to 85% without the Ventimask, maintaining at 91% with. Repeat chest x-ray reveals stable chest x- ray correlate for interstitial fibrosis with superimposed CHF or interstitial pneumonitis. Patient is followed closely by pulmonary medicine and patient started on cefepime, Solu-Medrol 40 mg IV every [address] of the chest ordered. Nephrology is following and recommending continuing current dose of Lasix which is 40 mg oral twice daily. 03/23: CAT scan of the chest revealed advanced COPD changes. Suspected associated extensive pulmonary infection correlate clinically. Follow complete resolution. Cannot exclude associated pulmonary edema. The patient was on BiPAP during the night and Ventimask during the day. Dr. Frank recommends continuing IV Solu-Medrol and cefepime. Daily while on IV steroids. YINA, ANCA titers are elevated and sed rate, Legionella ordered., Pulse ox 96% on Ventimask 50% FiO2. BUN 45 and creatinine 1.42. Capillary blood glucoses running 129 -275. Sputum culture finalized with normal respiratory ludy. 03/24: Again today, patient is on Ventimask. Ask if nursing can follow-up with pulmonary medicine regarding level of pulse ox is necessary for this patient. Patient made do fairly well with a lower pulse ox:. Cardiology is following as well as pulmonary medicine and nephrology. Nephrology is planning to continue current dose of Lasix midodrine and Solu-Medrol. He is currently on oral Lasix, Solu-Medrol at 40 mg every 8 hours, DuoNeb treatments 4 times daily and as needed, cefepime 2 g every 12 hours IV piggyback. Once oxygen levels are lower, patient will be discharged. Capillary blood glucose running between 199 and 325. BUN 45 creatinine 1.39. Scheduled NovoLog added to her regime.. 03/25: This morning, patient transition to high flow nasal cannula at 7 L with pulse ox of 88-90%. He is also getting up to a chair this morning. He's been afebrile, heart rate in the 50s, blood pressure 115/41. Repeat blood work reveals electrolytes normal. BUN 48 creatinine 1.86. Blood sugar 255. Sputum culture finalized with normal ludy. Chest x-ray reveals diffuse bilateral interstitial infiltrates with pleural effusion and basilar infiltrates stable. Likely background of COPD. Correlate for interstitial pneumonia. CHF superimposed on background chronic interstitial lung disease also in the differential. Patient is continued on DuoNeb treatments 4 times daily and as needed, Solu-Medrol 40 mg IV every 8 hours 03/26: Patient is doing much better, currently at 5 L nasal cannula, but pulse ox 97%, patient is tolerating a dental his diet, daughter brings nutritional foods from home, which he likes to finish. No aspirated events, edema is resolved from the lower legs, there is no new skin tears, agent is participating with his current therapy, with walker assist. Pulmonary nephrology is following, currently on broad-spectrum antibiotics IV Seprafilm, and IV Solu-Medrol. Patient is off diuretics creatinine 1.36, table by pulse, 109/69, no lightheadedness or dizziness upon standing, was anticipating discharge to home, rather than skilled ECF, in the next 24 hours with home care, patient does not have his own personal home O2, they have something from the that needs to be borrowed discharge planning, for home O2 device needed prior to discharge 03/27: Patient is still progressing well, appetite is okay without any aspiration, has 4 L room air 95%, no fever no chills, discharge planning is in progress, most likely would need home O2, to be provided prior for discharge. Vital vital signs are stable, no new problems at this time, home therapy is expected 03/28: Patient's doing well, no new problems today, 3 with home O2.5 L nasal cannula, 95%, awaiting discharge in the morning, with home O2, patient does not have his own personal device. Patient is diuresing well, less shortness of breath related to pleural effusion while on Lasix, no medication changes today, anticipate discharge in morning,, REVIEW OF SYSTEMS Constitutional: No fever, no chills, no night sweats. No weight change. No weakness, fatigue or lethargy. No daytime sleepiness. EENT: No headache. No blurred vision or double vision, no loss of vision. No loss of Hearing, no ringing in the ears, no dizziness. No nasal drainage or congestion. No epistaxis. No sore throat. Lungs: Continued shortness of breath, cough, no sputum production. No wheezing. Cardiovascular: No chest pain, no lower extremity edema. No palpitations. No paroxysmal nocturnal dyspnea. No orthopnea. No lightheadedness or dizziness. No syncopal episodes. Abdominal: No abdominal pain. No nausea, vomiting. No diarrhea. No constipation. No bloody or tarry stools. No loss of appetite. Genitourinary: No dysuria, increased frequency, urgency. No urinary retention. Musculoskeletal: No myalgias. No muscle weakness, no gait dysfunction, no frequent falls. No back pain. No neck pain. Integumentary: No wounds, no lesions. No rash or pruritus. No unusual bruising. No change in hair or nails. Neurologic: No aphasia. No facial droop. No change in mentation. No head injury. No headache. No paralysis. No paresthesia. Psychiatric: No depression. Reports anxiety. No mood swings. Endocrine: No abnormal blood sugars. No weight change. No excessive sweating or thirst. No cold intolerance. PHYSICAL EXAMINATION Gen: This is a 71-year-old male, resting in bed and appears to be fairly comfortable, currently on O2 at 7 L high flow. HEENT: Head is atraumatic, normocephalic. Pupils equal, round. Sclerae is anicteric. NECK: Supple. No JVD. No lymphadenopathy. No thyromegaly. LUNGS: Crackles bilateral bases. No intercostal retractions. HEART: Irregular rate and rhythm. Systolic murmur. ABDOMEN: Soft. Bowel sounds are present. No masses. No tenderness. EXTREMITIES: No pedal edema. No calf tenderness. NEUROLOGICAL: Patient is awake, alert and oriented x3. Cranial nerves 2 through 12 are grossly intact. ASSESSMENT AND PLAN 1. Persistent atrial flutter with RVR. Patient is seen and followed by cardiology with plan for cardioversion 03/21. Continue patient on eliquis 5 mg twice daily, Lopressor 25 mg 3 times daily, amiodarone 200 mg twice daily. 2. Acute on chronic diastolic heart failure. Continue patient on Lasix 40 mg twice daily. Discontinued 03/25/2022 3. Acute hypoxic hypoxic respiratory failure secondary to underlying pneumonia, pulmonary medicine consult appreciated, patient started on cefepime 2 g IV piggyback every 12 hours and Solu-Medrol 40 mg IV every 8 hours, continue DuoNeb treatments 4 times daily and as needed.. 4. Acute kidney injury secondary to prerenal and cardiorenal syndrome. Patient is followed by nephrology Lasix discontinued as edema has improved just a simple right pleural effusion and Aranesp 40 units every week and monitor orthostatic changes. 5. Hyperlipidemia. Continue atorvastatin 40 mg daily. 6. Hypertension. 7. History of CVA or TIA. 8. Chronic interstitial lung disease, with COPD COPD pleural effusion,. Continue DuoNeb treatments 4 times daily and as needed. Patient was requiring Lasix, this was discontinued earlier this week home O2, required between 2-4 L, social services or case management, for supplies 9. Mild aortic stenosis. 10. Coronary artery disease status post CABG and PCI 11. GI prophylaxis. 12. DVT prophylaxis. Eliquis 5 mg twice daily. 13. Obstructive sleep apnea with CPAP. 14. Recurrent depression. Continue Seroquel 50 mg at bedtime. 15. Hypotension. Patient was started on midodrine 10 mg 3 times daily. 16. Chronic kidney disease stage III. 17. Diabetes mellitus type 2. Levemir 10 units daily and NovoLog scale, NovoLog 5 units with meals and at bedtime added. DISCHARGE PLAN Home with [facility] most likely by Monday, requiring home O2 device new. Laboratory Results - Last 24 Hours 03/26/22 03/26/22 03/26/22 11:31 11:48 16:55 Sodium 139 Potassium 3.6 Chloride 100 Carbon Dioxide 29 Anion Gap 10 BUN 51 H Creatinine 1.36 H Est GFR (CKD-EPI)AfAm 61 Est GFR (CKD-EPI)NonAf 53 Glucose 259 H POC Glucose (mg/dL) 259 H 406 H POC Glu Child Care Director ID Fujita, Janine Fujita, Janine Calcium 8.5 Magnesium 2.2 03/26/22 03/27/22 03/27/22 20:18 07:22 07:49 Sodium 139 Potassium 3.2 L Chloride 100 Carbon Dioxide 29 Anion Gap 10 BUN 47 H Creatinine 1.27 H Est GFR (CKD-EPI)AfAm 66 Est GFR (CKD-EPI)NonAf 57 Glucose 190 H POC Glucose (mg/dL) 266 H 178 H POC Glu Child Care Director ID Mix, Gricelda Fujnida, Janine Calcium 8.2 L Magnesium 2.1 Vital Signs - 24 hr Vital Signs - 24 hr 03/27/22 03/27/22 03/27/22 11:17 12:30 14:50 Temperature 98.0 F Pulse Rate 62 68 Pulse Rate [ 70 Pulse Oximetery ] Respiratory 18 18 18 Rate Blood Pressure 112/59 [Left Arm] O2 Sat by Pulse 93 L Oximetry Fraction of Inspired Oxygen (FIO2) 03/27/22 03/27/22 03/27/22 14:53 15:02 15:40 Temperature 97.9 F Pulse Rate 62 Pulse Rate [ 66 Pulse Oximetery ] Respiratory 18 18 Rate Blood Pressure 130/64 [Left Arm] O2 Sat by Pulse 94 L 95 Oximetry Fraction of Inspired Oxygen (FIO2) 03/27/22 03/27/22 03/27/22 20:00 20:07 20:21 Temperature 98.0 F Pulse Rate 64 68 Pulse Rate [ 64 Pulse Oximetery ] Respiratory 19 Rate Blood Pressure 150/66 [Left Arm] O2 Sat by Pulse 98 Oximetry Fraction of Inspired Oxygen (FIO2) 03/27/22 03/28/22 03/28/22 23:18 00:00 02:00 Temperature 98.3 F Pulse Rate Pulse Rate [ 55 L 55 L Pulse Oximetery ] Respiratory 16 16 Rate Blood Pressure 131/65 [Left Arm] O2 Sat by Pulse 99 Oximetry Fraction of 40 40 Inspired Oxygen (FIO2) 03/28/22 03/28/22 03/28/22 03:36 04:00 08:49 Temperature 98.2 F Pulse Rate 60 Pulse Rate [ 56 L Pulse Oximetery ] Respiratory 16 Rate Blood Pressure 146/71 [Left Arm] O2 Sat by Pulse 98 Oximetry Fraction of 40 40 Inspired Oxygen (FIO2) 03/28/22 03/28/22 09:03 09:12 Temperature 97.9 F Pulse Rate 60 Pulse Rate [ 59 L Pulse Oximetery ] Respiratory 16 Rate Blood Pressure 122/56 [Left Arm] O2 Sat by Pulse 92 L Oximetry Fraction of Inspired Oxygen (FIO2) Objective - Vital Signs Vital signs: Vital Signs Temp 97.9 F 03/28/22 09:12 Pulse 59 L 03/28/22 09:12 Resp 16 03/28/22 09:12 BP 122/56 03/28/22 09:12 Pulse Ox 92 L 03/28/22 09:12 FiO2 40 03/28/22 04:00 Intake & Output 03/27/22 03/28/22 03/28/22 18:59 06:59 18:59 Intake Total 740 240 458 Output Total 1200 300 450 Balance -460 -60 8 Intake: Intake, IV Titration 340 Amount Cefepime 2 gm In Sodium 100 Chloride 0.9% 100 ml @ 25 mls/hr IVPB Q8HR [facility] Rx# :[id number] Sodium Chloride 0.9% 1, 240 000 ml @ 0 mls/hr IV .STK -MED ONE Rx#:[id number] Oral 740 240 118 Output: Urine 1200 300 450 Other: Voiding Method Bedside Commode Bedside Commode Urinal Urinal # Voids 1 2 # Bowel Movements 1 - Labs CBC & Chem 7: 03/19/22 07:57 03/28/22 08:11 Labs: Abnormal Lab Results - Last 24 Hours (Table) 03/27/22 03/27/22 03/27/22 Range/Units 11:58 16:56 20:19 BUN (9-20) mg/dL Creatinine (0.66-1.25) mg/dL Glucose (74-99) mg/dL POC Glucose (mg/dL) 130 H 223 H 269 H (70-110) mg/dL Calcium (8.4-10.2) mg/dL 03/28/22 03/28/22 Range/Units 06:56 08:11 BUN 46 H (9-20) mg/dL Creatinine 1.31 H (0.66-1.25) mg/dL Glucose 216 H (74-99) mg/dL POC Glucose (mg/dL) 212 H (70-110) mg/dL Calcium 8.3 L (8.4-10.2) mg/dL
--- NOTE | 2022-03-28 13:57 | P.PN ---
Subjective Progress Note Date: 03/28/22 71-year-old male who presented to the emergency department on March 12, complaining of shortness of breath. The patient had shortness of breath about a day or so prior to admission. The patient complained about being fatigued. There was no chest pain or palpitations. He denied any cough or phlegm pro duction. No leg pain or leg swelling. The patient apparently denied any chest pain or chest discomfort. We were asked to see the patient today, for shortness of breath. Currently, he's on a 40% Venturi mask. His clinical picture is consistent with CHF. His BMP was elevated. He is on saline at KVO. I placed the patient on BiPAP at 12/5 and 40%, to see we can make him a bit more comfortable. I asked him whether or not he was any better, the same, or any worse since he was admitted. He stated about the same. I did speak to the nurse, Margaret about the patient. She thought the patient was relatively stable and has not deteriorated. The patient apparently has a history of atrial fibri llation, diabetes, GERD, hyperlipidemia, hypertension, myocardial infarction, chronic renal insufficiency, mild aortic stenosis, and possible COPD from previous tobacco use. The patient is also had heart catheterization with stent placement, and bypass grafting. White count 10.6, hemoglobin 9.5, hematocrit 31.2, and platelet count 355,000. Sodium 142, potassium 4.1, chlorides 105, CO2 25, anion gap 12, BUN 36, and creatinine 1.15. On admission, his N-terminal proBNP was 10,800. Chest x-ray in my opinion is consistent with fluid overload/CHF, and interstitial edema. The patient does have bilateral pleural effusions. Progress note dated 03/18/2022. 71-year-old male seen yesterday in consultation. Please see the note above. Today, the patient's feeling better. Yesterday, he was placed on BiPAP, with settings of 12/5 and 40%. Currently, he's using a 40% Venturi mask. I explained to the patient, they he could go back on BiPAP anytime he wishes. The BiPAP will be especially useful for his congestive heart failure. White count 10.9, hemoglobin 9.9, hematocrit 32.1, and platelet count 409,000. Sodium 139, potassium 3.4, chlorides 102, CO2 25, anion gap 12, BUN 35, and creatinine 1.30. Calcium is 8.3. Chest x-ray from March 17 is evaluated. Progress note dated 03/20/2022. 71-year-old male seen in consultation on the . The patient was admitted with a diagnosis of CHF. Because of worsening respiratory distress, we placed him on BiPAP, with settings of 12/5 and 40%. When not using BiPAP, the patient could use a 40% Venturi mask, or nasal cannula. Clinically, the patient's feeling much better. He has been receiving Lasix. No new labs today other than a glucose of 151. Chest x-ray from March 19, was reviewed already. on 03/21/2022, the patient is being seen for a follow-up. I reviewed the records. The patient has been in the hospital for almost a week complaining of shortness of breath and ongoing issues with hypoxic respiratory failure without any much improvement. This morning, the patient had based on oxygen with a 40% Ventimaskand he was still having labored breathing. He was still tachycardic and a heart rate seemed to be in flutter in the rate of 140.blood gases was done today that showed a combination of respiratory and metabolic alkalosis. The patient had a pH of 7.6 with a pCO2 of 31 and pO2 of 67. Note that the patient was being diuresed aggressively with diuresis with IV Lasix and the patient was responding knowing that his initial presentation was most consistent with CHF. Electrodes from today still pending. From yesterday, the serum bicarb was a 28 with a mean of 37 and a creatinine of 1.4.the patient remains in flutter rhythm. The patient is being considered forcardioversion following a NU and this will be done by cardiology. The patient has no lower extremity edema. No other new complaints otherwise for now. No angina. No palpitation. Chest x-ray still showing bilateral pulmonary infiltrates more so with a peripheral distribution. There is also crackles in lung bases bilaterally on today's examination. 03/22/2022, the patient is being seen for a follow-up. Note that the patient's is an acute hypoxic respiratory failure and the patient is currently on a 40% Ventimask. No improvement in oxygenation and repeat chest x-ray was done showing diffuse bilateral pulmonary infiltrates with no interval change compared to the earlier chest x-rays. Note that there is a diffuse reticular another interstitial pattern along with cardiomegaly. Obviously the initial concern that this was CHF. Nevertheless, possibility of an underlying infectious or postinfectious causes/ARDS cannot be completely ruled out. Based on that, I would suggest further investigation. The patient is afebrile. The patient is hemodynamically stable. On today's blood work, his BUN is 45 with a creatinine of 1.4 and sodium level is at 138 and the patient was switched to oral Lasix. Note that his initial proBNP level was quite elevated supporting the diagnosis of CHF. Nevertheless, the response to the diuretics was suboptimal. Also, the patient underwent cardioversion yesterday and his cardiac rhythm is back to sinus. He remains on anticoagulants. He is started on IV Rocephin 03/23/2022, the patient remains hypoxic with a 50% Ventimask. Further investigation was done and this included a CAT scan of the chest that was completed yesterday without contrast and the CAT scan showed extensive disease with diffuse bilateral pulmonary consolidation and alveolar opacities most evident in the right lung and the relatively sparing the left lower lobe and this is suggestive of an acute infectious pneumonia. Underlying CHF is doubtful. The patient has small bilateral pleural effusion and cardiomegaly. On examination, he does have some coarse crackles in the lung bases bilaterally. Note that these are of a new onset knowing that 3 weeks ago, his infiltrates were not present. The patient did not respond well to diuretics. His BUN is at 45 with a creatinine of 1.4 and the patient is currently on oral Lasix. I also discontinued the IV Rocephin and put the patient on cefepime 2 g every 12 hours and the patient is also on IV Solu-Medrol 40 mg every 8 hours. No interval worsening shortness of breath. He is unable to breathe through his nose and he prefers the Ventimask for now. On and off she is also using the BiPAP. His cardiac rhythm is NSR controlled rate and there is no rapid ventricular response post cardioversion. 03/24/2022, the patient is feeling well. The patient remains on a 50% Ventimask and he prefers to be on a Ventimask as the patient is unable to take oxygen through his nostrils. No significant chest pain. He feels less short of breath compared to yesterday. Pulse ox is in the high 90s for now. He remains on IV cefepime. He remains on IV Solu-Medrol. No fever. No chills. No sweats. No other new complaints otherwise. His cardiac rhythm remains sinus and the patient is currently on oral amiodarone and the patient is also on Eliquis 5 mg by mouth twice a day.blood work from today includes electrolytes and the patient's creatinine is stable at 1.35 with a mean of 45 and his sodium level of 141. His connective tissue disease workup thus far has been negative. Legionella urine antigen was also negative. On 03/25/2022 , the patient is feeling well. The patient sitting up on a chair. He got himself off the Ventimask and the patient is currently on a nasal cannula at 7 L per minute. The patient is doing well. His oxidation is above 90%. He feels less short of breath. I had the patient on IV Solu Medrol 40 mg every 8 hours. He is also on IV cefepime. A repeat chest x-ray was done and it showed unchanged bilateral airspace disease and infiltrates which remains essentially unchanged. The patient is currently on oral Lasix 40 mg by mouth daily. Afebrile. The blood work from today showing a mean of 48 with a creatinine of 1.8. Sodium is at 141. Glucose is 161 and today's evaluation with a calcium level of 8.3. He has no complaints otherwise for now. No chest pain. Legionella urine antigen was negative. Connective tissue disease workup was also negative. 03/26/2022, the patient is stable 7 L of oxygen by nasal cannula. In the pulse ox in the order of 96%. No chest pain. No significant shortness of breath. Creatinine from yesterday was 1.8 and the findings on the case. The patient is currently on broad-spectrum antibiotics and the patient is currently on IV cefepime. The patient IV Solu-Medrol. The patient is on amiodarone 200 mg by mouth daily. He is also on Toprol 25 mg twice a day. Cardiac rhythm is sinus. He is off diuretics. 03/27/2022, no complaints, improving and the patient is currently on 5 L O2 nasal cannula. Remains on steroids and the patient is currently receiving IV Solu Medrol for every 8 hours and the patient is also on IV cefepime. He is tolerating his diet. His creatinine is stable at 1.2 with a BUN of 47 and the sodium level of 139. Noticed issues otherwise for now. He reports improvement in his shortness of breath. His kidney failure is improved as the patient was taken off the diuretics. 03/28/2022, the patient is on 4 L of O2 nasal cannula. He is doing well. No specific complaints. He feels that his breathing is gradually improving. Is using incentive spirometer. He remains on IV cefepime which is emphatic coverage at this point, the patient is responding also prednisone 40 mg by mouth daily. There is a postinfectious ARDS rather than CHF. Function is stable. Within this patient off IV Lasix and the patient is currently on oral Lasix 40 mg twice a day. Chest x-ray findings are essentially unchanged with diffuse bilateral airspace disease Objective - Vital Signs Vital signs: Vital Signs Temp 97.9 F 03/28/22 09:12 Pulse 56 L 03/28/22 11:57 Resp 16 03/28/22 09:12 BP 122/56 03/28/22 09:12 Pulse Ox 92 L 03/28/22 09:12 FiO2 40 03/28/22 04:00 Intake & Output 03/27/22 03/28/22 03/28/22 18:59 06:59 18:59 Intake Total 740 240 458 Output Total 1200 300 450 Balance -460 -60 8 Intake: Intake, IV Titration 340 Amount Cefepime 2 gm In Sodium 100 Chloride 0.9% 100 ml @ 25 mls/hr IVPB Q8HR [facility] Rx# :[id number] Sodium Chloride 0.9% 1, 240 000 ml @ 0 mls/hr IV .[facility] Rx#:[id number] Oral 740 240 118 Output: Urine 1200 300 450 Other: Voiding Method Bedside Commode Bedside Commode Urinal Urinal # Voids 1 2 # Bowel Movements 1 - Exam No acute distress, oriented 3. Sitting up in bed,, on 5 L of oxygen nasal cannula Head exam was generally normal. There was no scleral icterus or corneal arcus. Mucous membranes were moist.. HEENT examination is grossly unremarkable. Neck supple. Full range of motion. No adenopathy thyromegaly or neck vein distention. Cardiovascular examination reveals regular rhythm rate. S1-S2 normal. No S3 or S4. Lungs reveal scattered mild to moderate crackles and rhonchi. Breath sounds equal bilaterally. No wheezes. Abdomen soft bowel sounds are heard. No masses or tenderness. Extremities are intact. No cyanosis clubbing or edema. Skin is without rash or lesion. Neurologic examination is brief but nonfocal. - Labs CBC & Chem 7: 03/19/22 07:57 03/28/22 08:11 Labs: Abnormal Lab Results - Last 24 Hours (Table) 03/27/22 03/27/22 03/28/22 Range/Units 16:56 20:19 06:56 BUN (9-20) mg/dL Creatinine (0.66-1.25) mg/dL Glucose (74-99) mg/dL POC Glucose (mg/dL) 223 H 269 H 212 H (70-110) mg/dL Calcium (8.4-10.2) mg/dL 03/28/22 03/28/22 Range/Units 08:11 12:14 BUN 46 H (9-20) mg/dL Creatinine 1.31 H (0.66-1.25) mg/dL Glucose 216 H (74-99) mg/dL POC Glucose (mg/dL) 215 H (70-110) mg/dL Calcium 8.3 L (8.4-10.2) mg/dL Assessment and Plan Plan: Shortness of breath, with diffuse bilateral pulmonary infiltrates and secondary hypoxic respiratory failure, and the presentation is not consistent with CHF. The patient did not respond to diuresis. This is an acute lung injury/ARDS, exact underlying etiology is not clear and the patient is taking sometimes recovers. The patient oxygenation is improved and the patient is currently on 5 L of O2 nasal cannula. Connective tissue disease workup was negative. Legionella urine antigen was negative. COVID 19 testing was negative. Influenza screen was negative. The patient is clinically improving Acute hypoxic respiratory failure remains on O2 at 5 L nasal cannula History of chronic atrial fibrillation/atrial flutter. Anticoagulation with Eliquis History of CAD, status post bypass grafting, as well as heart catheterization with stent placement. History of CVA. Diabetes mellitus. History of myocardial infarction. Hypertension. Hyperlipidemia. History of possible COPD, secondary to prior tobacco use. Mild aortic stenosis. respiratory/metabolic alkalosis Plan In my opinion, this is a postinfectious ARDS which will take a longer time to recover. The patient is currently on prednisone. IV cefepime can be discontinued. The patient will likely need home oxygen therapy. He was weaned off the BiPAP. He was weaned off the Ventimask and is currently on 5 L of O2 nasal cannula. We'll need to arrange home O2. Continue oral Lasix. Renal function stable. His atrial flutter has been cardioverted and the patient is on long-term anticoagulation. I would suggest stopping the amiodarone to avoid any potential lung toxicity from amiodarone. This was discussed again with cardiology. Clinically improving Currently the patient is on 5 L of O2 nasal cannula. Chest x-ray are stable and anticipate some delay in the recovery the chest x- ray findings. Renal function stable
[2022-03-28 16:44] LABS: Glucose,Whole Blood 139 mg/dL (70-110)
[2022-03-28 20:13] LABS: Glucose,Whole Blood 190 mg/dL (70-110)
[2022-03-28] MEDS: QUEtiapine 50 MG TAB PO SCH (20:27)
[2022-03-29 06:20] LABS: Glucose,Whole Blood 121 mg/dL (70-110)
[2022-03-29] MEDS: INSULIN ASPART (NovoLOG) 100 UNIT/ML VIAL SQ SCH ×8 (06:28→22:29)
[2022-03-29] MEDS: MIDODRINE 5 MG TAB PO SCH ×3 (06:28→17:18)
[2022-03-29] MEDS: PANTOPRAZOLE 40 MG TABLET PO SCH (06:40)
[2022-03-29] MEDS: INSULIN DETEMIR (LEVEMIR) 100 UNIT/ML SYR SQ SCH (06:40)
[2022-03-29] MEDS: IPRATROPIUM-ALBUTEROL 3 ML NEB INHALATION SCH ×4 (07:44→19:02)
[2022-03-29] MEDS: METOPROLOL TARTRATE 25 MG TAB PO SCH ×2 (08:54→22:30)
[2022-03-29] MEDS: FUROSEMIDE 40 MG TAB PO SCH ×2 (08:54→17:18)
[2022-03-29] MEDS: DOCUSATE 100 MG CAP PO SCH (08:54)
[2022-03-29] MEDS: APIXABAN 5 MG TAB PO SCH ×2 (08:54→22:28)
[2022-03-29] MEDS: ATORVASTATIN 40 MG TAB PO SCH (08:54)
[2022-03-29] MEDS: AMIODARONE 200 MG TAB PO SCH (08:54)
[2022-03-29] MEDS: POTASSIUM CHLORIDE ER 20 MEQ TAB.ER PO SCH (08:54)
[2022-03-29] MEDS: CEFEPIME 2 GM in SODIUM CHLORIDE 0.9% 100 ML IVPB SCH (08:54)
[2022-03-29] MEDS: predniSONE 20 MG TAB PO SCH (08:54)
--- NOTE | 2022-03-29 10:41 | P.PN ---
Subjective Patient is seen in follow-up for acute kidney injury. On oral amiodarone and metoprolol for A. fib. Blood pressure stable. Nonoliguric. Denies chest pain or shortness of breath. Currently on 4 L nasal cannula. On oral Lasix. Renal function stable as of yesterday. No active complaints. Vital signs are stable. General: Awake. No acute distress. HEENT: Head exam is unremarkable. LUNGS: Breath sounds decreased. HEART: Regular rate and rhythm. ABDOMEN: Soft, no distention. EXTREMITITES: No edema. Objective - Vital Signs Vital signs: Vital Signs Temp 97.7 F 03/29/22 08:15 Pulse 63 03/29/22 08:15 Resp 16 03/29/22 08:15 BP 116/61 03/29/22 08:15 Pulse Ox 90 L 03/29/22 08:15 FiO2 40 03/29/22 03:05 Intake & Output 03/28/22 03/29/22 03/29/22 18:59 06:59 18:59 Intake Total 816 640 120 Output Total 1170 1375 675 Balance -562 -009 -218 Intake: Intake, IV Titration 340 280 Amount Cefepime 2 gm In Sodium 100 200 Chloride 0.9% 100 ml @ 25 mls/hr IVPB Q8HR [facility] Rx# :[id number] Sodium Chloride 0.9% 1, 240 80 000 ml @ 0 mls/hr IV .[facility] Rx#:[id number] Oral 476 360 120 Output: Urine 1170 1375 675 Other: Voiding Method Bedside Commode Bedside Commode Urinal Urinal # Voids 2 - Labs CBC & Chem 7: 03/19/22 07:57 03/28/22 08:11 Labs: Abnormal Lab Results - Last 24 Hours (Table) 03/28/22 03/28/22 03/28/22 Range/Units 12:14 16:42 20:12 POC Glucose (mg/dL) 215 H 139 H 190 H (70-110) mg/dL 03/29/22 Range/Units 06:20 POC Glucose (mg/dL) 121 H (70-110) mg/dL Assessment and Plan Plan: Assessment: 1. Acute kidney injury secondary to ATN secondary to hypotension and cardior enal syndrome. Renal function has been fairly stable. UA benign from February 2022. No hydronephrosis noted on CT done 03/02/2022. 2. Chronic kidney disease stage 2/IIIa with baseline creatinine near 1-1.1 secondary to nephrosclerosis. 3. A. fib with RVR. Cardiology following. On oral amiodarone and metoprolol. status post cardioversion 03/21/2022. 4. Anemia of chronic kidney disease. Iron replete. On Aranesp. 5. Chronic systolic CHF with ejection fraction of 40-45% with mild mitral and tricuspid regurgitation. 6. Concern for adrenal insufficiency with low cortisol level last admission maintained on Cortef outpatient. 7. Hypokalemia from diuresis. Replaced. Plan: Avoid nephrotoxins. Continue to monitor renal function and urine output. Patient will need to follow-up with endocrinology outpatient for further workup for adrenal insufficiency. Maintain oral Lasix. Maintain potassium supplementation. Hold midodrine for systolic blood pressure greater than 110. Currently on prednisone. Change to Cortef upon discharge.
[2022-03-29 11:49] LABS: Glucose,Whole Blood 66 mg/dL (70-110)
[2022-03-29 12:09] LABS: Glucose,Whole Blood 68 mg/dL (70-110)
[2022-03-29 12:24] LABS: Glucose,Whole Blood 85 mg/dL (70-110)
--- NOTE | 2022-03-29 12:35 | P.PN ---
Subjective Progress Note Date: 03/29/22 HISTORY OF PRESENT ILLNESS 71-year-old male who was recently admitted with CHF acute exacerbation also relative hypotension. Patient becoming more hypoxic requiring Ventimask with pulmonary following and being transitioned to BiPAP. Patient with extensive weakness and recommending continued PT/OT. Chest x-ray for today ordered and pending at this time. Patient is being followed by cardiology and pulmonary has been consulted. Patient is currently afebrile and denies chest pain or palpitations. Patient is tolerating diet with no reports of nausea or vomiting noted. Patient is afebrile. Patient is maintained on IV antibiotics in the form of ceftriaxone and will continue. Also recommend continue with breathing inhalational treatments and patient has been started on IV Solu-Cortef and will continue. Patient continues on midodrine for hypotension. Patient did receive a stat dose of IV Lasix today. 03/19/2022 Patient is seen and evaluated in follow-up on the selective care unit. He is currently resting comfortably in bed. Awake and alert in no acute distress. Patient is maintained on BiPAP 12/5 and 40% FiO2. Chest x-ray reveals persistent diffuse bilateral right greater than left reticular nodular infiltrates. Overall appearance is stable. Sputum culture revealed no growth. White count 7.7. Hemoglobin 8.8. Platelets 266. Sodium 137. Potassium 4.0. BUN 35. Creatinine 1.32. Glucose 119. He is continued on DuoNeb inhalations, Solu-Cortef, IV diuretics. Anticoagulated with Eliquis. Antibiotics in the form of ceftriaxone. 03/20/2022 Patient is seen and evaluated resting in bed; currently on 40% Ventimask; O2 saturation maintaining around 90%; BiPAP to be used as needed Vital signs are reviewed with temperature 97.9, pulse 122, respiration 22 and blood pressure of 95/61 with O2 saturation of 90% on an FiO2 of 40% Lab review shows sodium 136, potassium 3.2, BUN/creatinine of 37/1.41; blood glucoses ranging between 151-209 Patient remains in atrial flutter with RVR; cardiology is following with plans for possible NU cardioversion tomorrow morning Remains on Lasix 40 mg IV twice a day for CHF exacerbation; nephro on board for acute renal injury secondary to cardiorenal syndrome; creatinine remained stable at 1.3 03/21: Patient has been seen and followed by cardiology and pulmonary medicine. Patient is scheduled for cardioversion today. Patient states he is not feeling better today. No chest pain, palpitations, no significant shortness of breath at rest. He has been afebrile, heart rate in the 120s, blood pressure 91/52, pulse ox 90% on 40% Ventimask. Capillary blood glucose running between 119 and 300. ABGs pH 7.6, pCO2 31, pO2 67, sodium bicarb 30, total CO2 31, O2 saturation 95.1. Base excess 8.6. Patient is also followed by nephrology for acute kidney injury. 03/22: Yesterday, patient underwent successful NU and cardioversion and converted to sinus rhythm which is maintained. Patient is currently on a 40% Ventimask and unfortunately his pulse ox drops down to 85% without the Ventimask, maintaining at 91% with. Repeat chest x-ray reveals stable chest x- ray correlate for interstitial fibrosis with superimposed CHF or interstitial pneumonitis. Patient is followed closely by pulmonary medicine and patient started on cefepime, Solu-Medrol 40 mg IV every [address] of the chest ordered. Nephrology is following and recommending continuing current dose of Lasix which is 40 mg oral twice daily. 03/23: CAT scan of the chest revealed advanced COPD changes. Suspected associated extensive pulmonary infection correlate clinically. Follow complete resolution. Cannot exclude associated pulmonary edema. The patient was on BiPAP during the night and Ventimask during the day. Dr. Frank recommends continuing IV Solu-Medrol and cefepime. Daily while on IV steroids. YINA, ANCA titers are elevated and sed rate, Legionella ordered., Pulse ox 96% on Ventimask 50% FiO2. BUN 45 and creatinine 1.42. Capillary blood glucoses running 129 -275. Sputum culture finalized with normal respiratory ludy. 03/24: Again today, patient is on Ventimask. Ask if nursing can follow-up with pulmonary medicine regarding level of pulse ox is necessary for this patient. Patient made do fairly well with a lower pulse ox:. Cardiology is following as well as pulmonary medicine and nephrology. Nephrology is planning to continue current dose of Lasix midodrine and Solu-Medrol. He is currently on oral Lasix, Solu-Medrol at 40 mg every 8 hours, DuoNeb treatments 4 times daily and as needed, cefepime 2 g every 12 hours IV piggyback. Once oxygen levels are lower, patient will be discharged. Capillary blood glucose running between 199 and 325. BUN 45 creatinine 1.39. Scheduled NovoLog added to her regime.. 03/25: This morning, patient transition to high flow nasal cannula at 7 L with pulse ox of 88-90%. He is also getting up to a chair this morning. He's been afebrile, heart rate in the 50s, blood pressure 115/41. Repeat blood work reveals electrolytes normal. BUN 48 creatinine 1.86. Blood sugar 255. Sputum culture finalized with normal ludy. Chest x-ray reveals diffuse bilateral interstitial infiltrates with pleural effusion and basilar infiltrates stable. Likely background of COPD. Correlate for interstitial pneumonia. CHF superimposed on background chronic interstitial lung disease also in the differential. Patient is continued on DuoNeb treatments 4 times daily and as needed, Solu-Medrol 40 mg IV every 8 hours 03/26: Patient is doing much better, currently at 5 L nasal cannula, but pulse ox 97%, patient is tolerating a dental his diet, daughter brings nutritional foods from home, which he likes to finish. No aspirated events, edema is resolved from the lower legs, there is no new skin tears, agent is participating with his current therapy, with walker assist. Pulmonary nephrology is following, currently on broad-spectrum antibiotics IV Seprafilm, and IV Solu-Medrol. Patient is off diuretics creatinine 1.36, table by pulse, 109/69, no lightheadedness or dizziness upon standing, was anticipating discharge to home, rather than skilled ECF, in the next 24 hours with home care, patient does not have his own personal home O2, they have something from the that needs to be borrowed discharge planning, for home O2 device needed prior to discharge 03/27: Patient is still progressing well, appetite is okay without any aspiration, has 4 L room air 95%, no fever no chills, discharge planning is in progress, most likely would need home O2, to be provided prior for discharge. Vital vital signs are stable, no new problems at this time, home therapy is expected 03/28: Patient's doing well, no new problems today, 3 with home O2.5 L nasal cannula, 95%, awaiting discharge in the morning, with home O2, patient does not have his own personal device. Patient is diuresing well, less shortness of breath related to pleural effusion while on Lasix, no medication changes today, anticipate discharge in morning,, 03/29: Patient has been afebrile, heart rate in the 50s, blood pressure 116/61, 90% on 4 L high flow nasal cannula. Capillary blood glucose prior to lunch was 66 with repeat 68 and 85. Nephrology continues to follow with plan to avoid ne phrotoxins, monitor renal function and urine output, outpatient follow-up for endocrinology for adrenal insufficiency workup, continue oral Lasix and potassium supplements, hold midodrine for systolic blood pressure greater than 110. Change prednisone to Cortef at discharge. And patient may require home oxygen. Pulmonary also suggest stopping amiodarone to avoid lung toxicity. Patient will be monitored overnight and plan for discharge home tomorrow. The patient's has been admitted over the weekend at [facility]. REVIEW OF SYSTEMS Constitutional: No fever, no chills, no night sweats. No weight change. No weakness, fatigue or lethargy. No daytime sleepiness. EENT: No headache. No blurred vision or double vision, no loss of vision. No l oss of Hearing, no ringing in the ears, no dizziness. No nasal drainage or congestion. No epistaxis. No sore throat. Lungs: Continued shortness of breathimproving, cough, no sputum production. No wheezing. Cardiovascular: No chest pain, no lower extremity edema. No palpitations. No paroxysmal nocturnal dyspnea. No orthopnea. No lightheadedness or dizziness. No syncopal episodes. Abdominal: No abdominal pain. No nausea, vomiting. No diarrhea. No constipation. No bloody or tarry stools. No loss of appetite. Genitourinary: No dysuria, increased frequency, urgency. No urinary retention. Musculoskeletal: No myalgias. No muscle weakness, no gait dysfunction, no frequent falls. No back pain. No neck pain. Integumentary: No wounds, no lesions. No rash or pruritus. No unusual b ruising. No change in hair or nails. Neurologic: No aphasia. No facial droop. No change in mentation. No head injury. No headache. No paralysis. No paresthesia. Psychiatric: No depression. Reports anxiety. No mood swings. Endocrine: No abnormal blood sugars. No weight change. No excessive sweating or thirst. No cold intolerance. PHYSICAL EXAMINATION Gen: This is a 71-year-old male, resting in bed and appears to be fairly comfortable, currently on O2 at 4 L high flow. HEENT: Head is atraumatic, normocephalic. Pupils equal, round. Sclerae is anicteric. NECK: Supple. No JVD. No lymphadenopathy. No thyromegaly. LUNGS: Crackles bilateral bases. No intercostal retractions. HEART: Irregular rate and rhythm. Systolic murmur. ABDOMEN: Soft. Bowel sounds are present. No masses. No tenderness. EXTREMITIES: No pedal edema. No calf tenderness. NEUROLOGICAL: Patient is awake, alert and oriented x3. Cranial nerves 2 through 12 are grossly intact. ASSESSMENT AND PLAN 1. Persistent atrial flutter with RVR. Patient is seen and followed by cardiology with cardioversion 03/21. Continue patient on eliquis 5 mg twice daily, Lopressor 25 mg 2 times daily, amiodarone 200 mg daily. 2. Acute on chronic diastolic heart failure. Continue patient on Lasix 40 mg oral twice daily. 3. Acute hypoxic respiratory failure secondary to underlying pneumonia, pulmonary medicine consult appreciated, continue DuoNeb treatments 4 times daily and as needed, discontinue cefepime, continue prednisone 40 mg daily 4. Acute kidney injury secondary to prerenal and cardiorenal syndrome. Patient is followed by nephrology Lasix oral 40 mg twice daily. 5. Hyperlipidemia. Continue atorvastatin 40 mg daily. 6. Hypertension. 7. History of CVA or TIA. 8. Chronic interstitial lung disease, with COPD COPD pleural effusion,. Continue DuoNeb treatments 4 times daily and as needed. 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 Mild aortic stenosis. 10. Coronary artery disease status post CABG and PCI 11. GI prophylaxis. 12. DVT prophylaxis. Eliquis 5 mg twice daily. 13. Obstructive sleep apnea with CPAP. 14. Recurrent depression. Continue Seroquel 50 mg at bedtime. 15. Hypotension. Patient was started on midodrine 10 mg 3 times daily. 16. Chronic kidney disease stage III. 17. Diabetes mellitus type 2. Levemir 10 units daily and NovoLog scale, NovoLog 5 units with meals and at bedtime added. 18. Chronic hypoxic respiratory failure requiring home oxygen therapy. DISCHARGE PLAN Home with [facility] on Monday. Impression and plan of care have been directed as dictated by the signing physician. Luci Farrar nurse practitioner acting as scribe for signing physician. Objective - Vital Signs Vital signs: Vital Signs Temp 97.7 F 03/29/22 08:15 Pulse 63 03/29/22 08:15 Resp 16 03/29/22 08:15 BP 116/61 03/29/22 08:15 Pulse Ox 90 L 03/29/22 08:15 FiO2 40 03/29/22 03:05 Intake & Output 03/28/22 03/29/22 03/29/22 18:59 06:59 18:59 Intake Total 816 640 Output Total 1170 1375 Balance -354 735 Intake: Intake, IV Titration 340 280 Amount Cefepime 2 gm In Sodium 100 200 Chloride 0.9% 100 ml @ 25 mls/hr IVPB Q8HR [facility] Rx# :[id number] Sodium Chloride 0.9% 1, 240 80 000 ml @ 0 mls/hr IV .STK -[facility] Rx#:[id number] Oral 476 360 Output: Urine 1170 1375 Other: Voiding Method Bedside Commode Bedside Commode Urinal Urinal # Voids 2 - Labs CBC & Chem 7: 03/19/22 07:57 03/28/22 08:11 Labs: Abnormal Lab Results - Last 24 Hours (Table) 03/28/22 03/28/22 03/28/22 Range/Units 12:14 16:42 20:12 POC Glucose (mg/dL) 215 H 139 H 190 H (70-110) mg/dL 03/29/22 Range/Units 06:20 POC Glucose (mg/dL) 121 H (70-110) mg/dL
[2022-03-29] MEDS: ALPRAZolam 0.25 MG TAB PO PRN (13:58)
--- NOTE | 2022-03-29 14:30 | P.PN ---
Subjective Progress Note Date: 03/29/22 Principal diagnosis: Shortness of breath 71-year-old male who presented to the emergency department on March 12, complaining of shortness of breath. The patient had shortness of breath about a day or so prior to admission. The patient complained about being fatigued. There was no chest pain or palpitations. He denied any cough or phlegm production. No leg pain or leg swelling. The patient apparently denied any chest pain or chest discomfort. We were asked to see the patient today, for shortness of breath. Currently, he's on a 40% Venturi mask. His clinical picture is consistent with CHF. His BMP was elevated. He is on saline at KVO. I placed the patient on BiPAP at 12/5 and 40%, to see we can make him a bit more comfortable. I asked him whether or not he was any better, the same, or any worse since he was admitted. He stated about the same. I did speak to the nurse, Margaret about the patient. She thought the patient was relatively stable and has not deteriorated. The patient apparently has a history of atrial fibrillation, diabetes, GERD, hyperlipidemia, hypertension, myocardial infarction, chronic renal insufficiency, mild aortic stenosis, and possible COPD from previous tobacco use. The patient is also had heart catheterization with stent placement, and bypass grafting. White count 10.6, hemoglobin 9.5, hematocrit 31.2, and platelet count 355,000. Sodium 142, potassium 4.1, chlorides 105, CO2 25, anion gap 12, BUN 36, and creatinine 1.15. On admission, his N-terminal proBNP was 10,800. Chest x-ray in my opinion is consistent with fluid overload/CHF, and interstitial edema. The patient does have bilateral pleural effusions. Progress note dated 03/18/2022. 71-year-old male seen yesterday in consultation. Please see the note above. Today, the patient's feeling better. Yesterday, he was placed on BiPAP, with settings of 12/5 and 40%. Currently, he's using a 40% Venturi mask. I explained to the patient, they he could go back on BiPAP anytime he wishes. The BiPAP will be especially useful for his congestive heart failure. White count 10.9, hemoglobin 9.9, hematocrit 32.1, and platelet count 409,000. Sodium 139, potassium 3.4, chlorides 102, CO2 25, anion gap 12, BUN 35, and creatinine 1.30. Calcium is 8.3. Chest x-ray from March 17 is evaluated. Progress note dated 03/20/2022. 71-year-old male seen in consultation on the . The patient was admitted with a diagnosis of CHF. Because of worsening respiratory distress, we placed him on BiPAP, with settings of 12/5 and 40%. When not using BiPAP, the patient could use a 40% Venturi mask, or nasal cannula. Clinically, the patient's feeling much better. He has been receiving Lasix. No new labs today other than a glucose of 151. Chest x-ray from March 19, was reviewed already. on 03/21/2022, the patient is being seen for a follow-up. I reviewed the records. The patient has been in the hospital for almost a week complaining of shortness of breath and ongoing issues with hypoxic respiratory failure without any much improvement. This morning, the patient had based on oxygen with a 40% Ventimaskand he was still having labored breathing. He was still tachycardic and a heart rate seemed to be in flutter in the rate of 140.blood gases was done today that showed a combination of respiratory and metabolic alkalosis. The patient had a pH of 7.6 with a pCO2 of 31 and pO2 of 67. Note that the patient was being diuresed aggressively with diuresis with IV Lasix and the patient was responding knowing that his initial presentation was most consistent with CHF. Electrodes from today still pending. From yesterday, the serum bicarb was a 28 with a mean of 37 and a creatinine of 1.4.the patient remains in flutter rhythm. The patient is being considered forcardioversion following a NU and this will be done by cardiology. The patient has no lower extremity edema. No other new complaints otherwise for now. No angina. No palpitation. Chest x-ray still showing bilateral pulmonary infiltrates more so with a peripheral distribution. There is also crackles in lung bases bilaterally on today's examination. 03/22/2022, the patient is being seen for a follow-up. Note that the patient's is an acute hypoxic respiratory failure and the patient is currently on a 40% Ventimask. No improvement in oxygenation and repeat chest x-ray was done showing diffuse bilateral pulmonary infiltrates with no interval change compared to the earlier chest x-rays. Note that there is a diffuse reticular another interstitial pattern along with cardiomegaly. Obviously the initial concern that this was CHF. Nevertheless, possibility of an underlying infectious or postinfectious causes/ARDS cannot be completely ruled out. Based on that, I would suggest further investigation. The patient is afebrile. The patient is hemodynamically stable. On today's blood work, his BUN is 45 with a creatinine of 1.4 and sodium level is at 138 and the patient was switched to oral Lasix. Note that his initial proBNP level was quite elevated supporting the diagnosis of CHF. Nevertheless, the response to the diuretics was suboptimal. Also, the patient underwent cardioversion yesterday and his cardiac rhythm is back to si nus. He remains on anticoagulants. He is started on IV Rocephin 03/23/2022, the patient remains hypoxic with a 50% Ventimask. Further investigation was done and this included a CAT scan of the chest that was completed yesterday without contrast and the CAT scan showed extensive disease with diffuse bilateral pulmonary consolidation and alveolar opacities most evident in the right lung and the relatively sparing the left lower lobe and this is suggestive of an acute infectious pneumonia. Underlying CHF is doubtful. The patient has small bilateral pleural effusion and cardiomegaly. On examination, he does have some coarse crackles in the lung bases bilaterally. Note that these are of a new onset knowing that 3 weeks ago, his infiltrates were not present. The patient did not respond well to diuretics. His BUN is at 45 with a creatinine of 1.4 and the patient is currently on oral Lasix. I also discontinued the IV Rocephin and put the patient on cefepime 2 g every 12 hours and the patient is also on IV Solu-Medrol 40 mg every 8 hours. No interval worsening shortness of breath. He is unable to breathe through his nose and he prefers the Ventimask for now. On and off she is also using the BiPAP. His cardiac rhythm is NSR controlled rate and there is no rapid ventricular response post cardioversion. 03/24/2022, the patient is feeling well. The patient remains on a 50% Ventimask and he prefers to be on a Ventimask as the patient is unable to take oxygen through his nostrils. No significant chest pain. He feels less short of breath compared to yesterday. Pulse ox is in the high 90s for now. He remains on IV cefepime. He remains on IV Solu-Medrol. No fever. No chills. No sweats. No other new complaints otherwise. His cardiac rhythm remains sinus and the patient is currently on oral amiodarone and the patient is also on Eliquis 5 mg by mouth twice a day.blood work from today includes electrolytes and the patient's creatinine is stable at 1.35 with a mean of 45 and his sodium level of 141. His connective tissue disease workup thus far has been negative. Legionella urine antigen was also negative. On 03/25/2022 , the patient is feeling well. The patient sitting up on a chair. He got himself off the Ventimask and the patient is currently on a nasal cannula at 7 L per minute. The patient is doing well. His oxidation is above 90%. He feels less short of breath. I had the patient on IV Solu Medrol 40 mg every 8 hours. He is also on IV cefepime. A repeat chest x-ray was done and it showed unchanged bilateral airspace disease and infiltrates which remains essentially unchanged. The patient is currently on oral Lasix 40 mg by mouth daily. Afebrile. The blood work from today showing a mean of 48 with a creatinine of 1.8. Sodium is at 141. Glucose is 161 and today's evaluation with a calcium level of 8.3. He has no complaints otherwise for now. No chest pain. Legionella urine antigen was negative. Connective tissue disease workup was also negative. 03/26/2022, the patient is stable 7 L of oxygen by nasal cannula. In the pulse ox in the order of 96%. No chest pain. No significant shortness of breath. Creatinine from yesterday was 1.8 and the findings on the case. The patient is currently on broad-spectrum antibiotics and the patient is currently on IV cefepime. The patient IV Solu-Medrol. The patient is on amiodarone 200 mg by mouth daily. He is also on Toprol 25 mg twice a day. Cardiac rhythm is sinus. He is off diuretics. 03/27/2022, no complaints, improving and the patient is currently on 5 L O2 nasal cannula. Remains on steroids and the patient is currently receiving IV Solu Medrol for every 8 hours and the patient is also on IV cefepime. He is tolerating his diet. His creatinine is stable at 1.2 with a BUN of 47 and the sodium level of 139. Noticed issues otherwise for now. He reports improvement in his shortness of breath. His kidney failure is improved as the patient was t aken off the diuretics. 03/28/2022, the patient is on 4 L of O2 nasal cannula. He is doing well. No specific complaints. He feels that his breathing is gradually improving. Is using incentive spirometer. He remains on IV cefepime which is emphatic coverage at this point, the patient is responding also prednisone 40 mg by mouth daily. There is a postinfectious ARDS rather than CHF. Function is stable. Within this patient off IV Lasix and the patient is currently on oral Lasix 40 mg twice a day. Chest x-ray findings are essentially unchanged with diffuse bilateral airspace disease On 03/29/2022 patient seen in follow-up on selective care unit. He is awake and alert, in no acute distress, on 4 L of oxygen is satting 97%, he did wear BiPAP support last night with pressures of 12 and 5 and FiO2 of 40%. He feels like his breathing is improving. Occasional cough, no chest discomfort, no hemoptysis. Last chest x-ray from 03/28/2022 showing multifocal airspace opacities superimposed on COPD changes with underlying suspected degree of pulmonary fibrosis. Patient continues on oral Lasix, amiodarone 200 mg daily, anticoagulation with a local was 5 mg twice daily, and prednisone 40 mg daily. Sputum culture show no growth. Objective - Vital Signs Vital signs: Vital Signs Temp 97.8 F 03/29/22 11:30 Pulse 59 L 03/29/22 11:30 Resp 18 03/29/22 11:30 BP 114/62 03/29/22 11:30 Pulse Ox 97 03/29/22 11:30 FiO2 40 03/29/22 03:05 Intake & Output 03/28/22 03/29/22 03/29/22 18:59 06:59 18:59 Intake Total 816 640 360 Output Total 1170 1375 1000 Balance -804 -735 -640 Intake: Intake, IV Titration 340 280 Amount Cefepime 2 gm In Sodium 100 200 Chloride 0.9% 100 ml @ 25 mls/hr IVPB Q8HR [facility] Rx# :[id number] Sodium Chloride 0.9% 1, 240 80 000 ml @ 0 mls/hr IV .[facility] Rx#:[id number] Oral 476 360 360 Output: Urine 1170 1375 1000 Other: Voiding Method Bedside Commode Bedside Commode Bedside Commode Urinal Urinal Urinal # Voids 2 - Exam GENERAL EXAM: Alert, pleasant, 71-year-old, on 4 L of oxygen pulse ox 95% comfortable in no apparent distress. HEAD: Normocephalic/atraumatic. EYES: Normal reaction of pupils, equal size. Conjunctiva pink, sclera white. NOSE: Clear with pink turbinates. THROAT: No erythema or exudates. NECK: No masses, no JVD, no thyroid enlargement, no adenopathy. CHEST: No chest wall deformity. Symmetrical expansion. LUNGS: Equal air entry with no crackles, wheeze, rhonchi or dullness. CVS: Regular rate and rhythm, normal S1 and S2, no gallops, no murmurs, no rubs ABDOMEN: Soft, nontender. No hepatosplenomegaly, normal bowel sounds, no guarding or rigidity. EXTREMITIES: No clubbing, no edema, no cyanosis, 2+ pulses and upper and lower extremities. MUSCULOSKELETAL: Muscle strength and tone normal. SPINE: No scoliosis or deformity SKIN: No rashes CENTRAL NERVOUS SYSTEM: Alert and oriented -3. No focal deficits, tone is normal in all 4 extremities. PSYCHIATRIC: Alert and oriented -3. Appropriate affect. Intact judgment and insight. - Labs CBC & Chem 7: 03/19/22 07:57 03/28/22 08:11 Labs: Abnormal Lab Results - Last 24 Hours (Table) 03/28/22 03/28/22 03/29/22 Range/Units 16:42 20:12 06:20 POC Glucose (mg/dL) 139 H 190 H 121 H (70-110) mg/dL 03/29/22 03/29/22 Range/Units 11:47 12:05 POC Glucose (mg/dL) 66 L 68 L (70-110) mg/dL Assessment and Plan Plan: #1. Shortness of breath with diffuse bilateral pulmonary infiltrates and acute hypoxic respiratory failure. Possibility of CHF seems to be less likely, and possibly due to acute lung injury/ARDS with unknown etiology. COVID-19 PCR was negative, influenza screen was negative, connective tissue disease workup was negative #2. Possible postinfectious ARDS #3. History of chronic A. fib and flutter #4. Rule out possibility of amiodarone related lung toxicity #5. History of CAD with previous bypass grafting #6. History of CVA #7. Diabetes mellitus type 2 #8. History of myocardial infarction #9. Hypertension #10. Hyperlipidemia #11. Possible COPD #12. Mild aortic stenosis #13. Respiratory/metabolic alkalosis Plan: Continue current medical treatment Recommend discontinuing amiodarone for a possibility of amiodarone related lung toxicity Weaning FiO2 Increase activity as tolerated I have personally seen and examined the patient, performed the documentation and the assessment and plan as written. Number of minutes spent on the visit: [10] Time with Patient: Less than 30
[2022-03-29 16:23] LABS: Glucose,Whole Blood 237 mg/dL (70-110)
[2022-03-29 20:30] LABS: Glucose,Whole Blood 322 mg/dL (70-110)
[2022-03-29] MEDS ORDERED: ACETAMINOPHEN TAB 325 MG TAB PO PRN (21:11)
[2022-03-29] MEDS: QUEtiapine 50 MG TAB PO SCH (22:30)
[2022-03-29 22:38] VITALS: RESP 18
[2022-03-30] MEDS: MIDODRINE 5 MG TAB PO SCH ×2 (07:00→10:54)
[2022-03-30] MEDS: INSULIN ASPART (NovoLOG) 100 UNIT/ML VIAL SQ SCH ×4 (07:11→13:01)
[2022-03-30] MEDS: PANTOPRAZOLE 40 MG TABLET PO SCH (07:11)
[2022-03-30] MEDS: INSULIN DETEMIR (LEVEMIR) 100 UNIT/ML SYR SQ SCH (07:12)
[2022-03-30] MEDS: IPRATROPIUM-ALBUTEROL 3 ML NEB INHALATION SCH ×3 (07:13→15:48)
[2022-03-30 07:29] LABS: Glucose,Whole Blood 179 mg/dL (70-110)
[2022-03-30 08:45] LABS: Calcium 8.3 mg/dL (8.4-10.2); Magnesium 2.2 mg/dL (1.6-2.3); Potassium 3.9 mmol/L (3.5-5.1)
--- NOTE | 2022-03-30 10:43 | P.PN ---
Subjective Patient is seen in follow-up for acute kidney injury. No active complaints. Renal function stable. Good urine output. Vital signs are stable. General: Awake. No acute distress. HEENT: Head exam is unremarkable. LUNGS: Breath sounds decreased. HEART: Regular rate and rhythm. ABDOMEN: Soft, no distention. EXTREMITITES: No edema. Objective - Vital Signs Vital signs: Vital Signs Temp 97.5 F L 03/30/22 03:07 Pulse 52 L 03/30/22 07:24 Resp 18 03/30/22 03:07 BP 135/63 03/30/22 03:07 Pulse Ox 99 03/30/22 03:07 FiO2 40 03/30/22 03:07 Intake & Output 03/29/22 03/30/22 03/30/22 18:59 06:59 18:59 Intake Total 480 Output Total 1150 1190 450 Balance -670 -1190 -450 Weight 75 kg Intake: Oral 480 Output: Urine 1150 1190 450 Other: Voiding Method Bedside Commode Bedside Commode Urinal Urinal # Voids 1 - Labs CBC & Chem 7: 03/19/22 07:57 03/30/22 07:49 Labs: Abnormal Lab Results - Last 24 Hours (Table) 03/29/22 03/29/22 03/29/22 Range/Units 11:47 12:05 16:22 Sodium (137-145) mmol/L BUN (9-20) mg/dL Creatinine (0.66-1.25) mg/dL Glucose (74-99) mg/dL POC Glucose (mg/dL) 66 L 68 L 237 H (70-110) mg/dL Calcium (8.4-10.2) mg/dL 03/29/22 03/30/22 03/30/22 Range/Units 20:28 07:05 07:49 Sodium 134 L (137-145) mmol/L BUN 54 H (9-20) mg/dL Creatinine 1.32 H (0.66-1.25) mg/dL Glucose 178 H (74-99) mg/dL POC Glucose (mg/dL) 322 H 179 H (70-110) mg/dL Calcium 8.3 L (8.4-10.2) mg/dL Assessment and Plan Plan: Assessment: 1. Acute kidney injury secondary to ATN secondary to hypotension and cardiorenal syndrome. Renal function has been fairly stable. UA benign from February 2022. No hydronephrosis noted on CT done 03/02/2022. 2. Chronic kidney disease stage 2/IIIa with baseline creatinine near 1-1.1 secondary to nephrosclerosis. 3. A. fib with RVR. Cardiology following. On oral amiodarone and metoprolol. status post cardioversion 03/21/2022. 4. Anemia of chronic kidney disease. Iron replete. On Aranesp. 5. Chronic systolic CHF with ejection fraction of 40-45% with mild mitral and tricuspid regurgitation. 6. Concern for adrenal insufficiency with low cortisol level last admission maintained on Cortef outpatient. 7. Hypokalemia from diuresis. Replaced. Plan: Avoid nephrotoxins. Continue to monitor renal function and urine output. Patient will need to follow-up with endocrinology outpatient for further workup for adrenal insufficiency. Maintain oral Lasix. Maintain potassium supplementation. Hold midodrine for systolic blood pressure greater than 110. Currently on prednisone. Change to Cortef upon discharge.
[2022-03-30] MEDS: FUROSEMIDE 40 MG TAB PO SCH (10:53)
[2022-03-30] MEDS: predniSONE 20 MG TAB PO SCH (10:54)
[2022-03-30] MEDS: DOCUSATE 100 MG CAP PO SCH (10:54)
[2022-03-30] MEDS: POTASSIUM CHLORIDE ER 20 MEQ TAB.ER PO SCH (10:54)
[2022-03-30] MEDS: AMIODARONE 200 MG TAB PO SCH (10:54)
[2022-03-30] MEDS: ATORVASTATIN 40 MG TAB PO SCH (10:54)
[2022-03-30] MEDS: APIXABAN 5 MG TAB PO SCH (10:54)
[2022-03-30] MEDS: METOPROLOL TARTRATE 25 MG TAB PO SCH (10:55)
--- NOTE | 2022-03-30 11:09 | P.DS ---
Providers Date of admission: 03/12/22 13:00 Expected date of discharge: 03/30/22 Attending physician: Jovanni Blandon Consults: 03/12/22 12:58 Consult Physician Routine Consulting Provider: Angel Mcfarland Consult Reason/Comments: chf, a flutter w rvr Do you want consulting provider notified?: Yes 03/13/22 12:26 Consult Physician Routine Consulting Provider: Cammie Robb Consult Reason/Comments: Acute kidney injury Do you want consulting provider notified?: Yes 03/16/22 13:28 Consult Physician Urgent Consulting Provider: Remy Gerardo Consult Reason/Comments: hypoxia, CHF Do you want consulting provider notified?: Yes Primary care physician: [facility] Course: HISTORY OF PRESENT ILLNESS 71-year-old male who was recently admitted with CHF acute exacerbation also relative hypotension. Patient becoming more hypoxic requiring Ventimask with pulmonary following and being transitioned to BiPAP. Patient with extensive weakness and recommending continued PT/OT. Chest x-ray for today ordered and pending at this time. Patient is being followed by cardiology and pulmonary has been consulted. Patient is currently afebrile and denies chest pain or palpitations. Patient is tolerating diet with no reports of nausea or vomiting noted. Patient is afebrile. Patient is maintained on IV antibiotics in the form of ceftriaxone and will continue. Also recommend continue with breathing inhalational treatments and patient has been started on IV Solu-Cortef and will continue. Patient continues on midodrine for hypotension. Patient did receive a stat dose of IV Lasix today. 03/19/2022 Patient is seen and evaluated in follow-up on the selective care unit. He is currently resting comfortably in bed. Awake and alert in no acute distress. Patient is maintained on BiPAP 12/5 and 40% FiO2. Chest x-ray reveals persistent diffuse bilateral right greater than left reticular nodular infiltrates. Overall appearance is stable. Sputum culture revealed no growth. White count 7.7. Hemoglobin 8.8. Platelets 266. Sodium 137. Potassium 4.0. BUN 35. Creatinine 1.32. Glucose 119. He is continued on DuoNeb inhalations, Solu-Cortef, IV diuretics. Anticoagulated with Eliquis. Antibiotics in the form of ceftriaxone. 03/20/2022 Patient is seen and evaluated resting in bed; currently on 40% Ventimask; O2 saturation maintaining around 90%; BiPAP to be used as needed Vital signs are reviewed with temperature 97.9, pulse 122, respiration 22 and blood pressure of 95/61 with O2 saturation of 90% on an FiO2 of 40% Lab review shows sodium 136, potassium 3.2, BUN/creatinine of 37/1.41; blood glucoses ranging between 151-209 Patient remains in atrial flutter with RVR; cardiology is following with plans for possible NU cardioversion tomorrow morning Remains on Lasix 40 mg IV twice a day for CHF exacerbation; nephro on board for acute renal injury secondary to cardiorenal syndrome; creatinine remained stable at 1.3 03/21: Patient has been seen and followed by cardiology and pulmonary medicine. Patient is scheduled for cardioversion today. Patient states he is not feeling better today. No chest pain, palpitations, no significant shortness of breath at rest. He has been afebrile, heart rate in the 120s, blood pressure 91/52, pu lse ox 90% on 40% Ventimask. Capillary blood glucose running between 119 and 300. ABGs pH 7.6, pCO2 31, pO2 67, sodium bicarb 30, total CO2 31, O2 saturation 95.1. Base excess 8.6. Patient is also followed by nephrology for acute kidney injury. 03/22: Yesterday, patient underwent successful NU and cardioversion and converted to sinus rhythm which is maintained. Patient is currently on a 40% Ventimask and unfortunately his pulse ox drops down to 85% without the Ventimask, maintaining at 91% with. Repeat chest x-ray reveals stable chest x- ray correlate for interstitial fibrosis with superimposed CHF or interstitial pneumonitis. Patient is followed closely by pulmonary medicine and patient started on cefepime, Solu-Medrol 40 mg IV every [address] of the chest ordered. Nephrology is following and recommending continuing current dose of Lasix which is 40 mg oral twice daily. 03/23: CAT scan of the chest revealed advanced COPD changes. Suspected associated extensive pulmonary infection correlate clinically. Follow complete resolution. Cannot exclude associated pulmonary edema. The patient was on BiPAP during the night and Ventimask during the day. Dr. Frank recommends continuing IV Solu-Medrol and cefepime. Daily while on IV steroids. YINA, ANCA titers are elevated and sed rate, Legionella ordered., Pulse ox 96% on Ventimask 50% FiO2. BUN 45 and creatinine 1.42. Capillary blood glucoses running 129 -275. Sputum culture finalized with normal respiratory ludy. 03/24: Again today, patient is on Ventimask. Ask if nursing can follow-up with pulmonary medicine regarding level of pulse ox is necessary for this patient. Patient made do fairly well with a lower pulse ox:. Cardiology is following as well as pulmonary medicine and nephrology. Nephrology is planning to continue current dose of Lasix midodrine and Solu-Medrol. He is currently on oral Lasix, Solu-Medrol at 40 mg every 8 hours, DuoNeb treatments 4 times daily and as needed, cefepime 2 g every 12 hours IV piggyback. Once oxygen levels are lower, patient will be discharged. Capillary blood glucose running between 199 and 325. BUN 45 creatinine 1.39. Scheduled NovoLog added to her regime.. 03/25: This morning, patient transition to high flow nasal cannula at 7 L with pulse ox of 88-90%. He is also getting up to a chair this morning. He's been afebrile, heart rate in the 50s, blood pressure 115/41. Repeat blood work reveals electrolytes normal. BUN 48 creatinine 1.86. Blood sugar 255. Sputum culture finalized with normal ludy. Chest x-ray reveals diffuse bilateral interstitial infiltrates with pleural effusion and basilar infiltrates stable. Likely background of COPD. Correlate for interstitial pneumonia. CHF superimposed on background chronic interstitial lung disease also in the differential. Patient is continued on DuoNeb treatments 4 times daily and as needed, Solu-Medrol 40 mg IV every 8 hours 03/26: Patient is doing much better, currently at 5 L nasal cannula, but pulse ox 97%, patient is tolerating a dental his diet, daughter brings nutritional foods from home, which he likes to finish. No aspirated events, edema is resolved from the lower legs, there is no new skin tears, agent is participating with his current therapy, with walker assist. Pulmonary nephrology is following, currently on broad-spectrum antibiotics IV Seprafilm, and IV Solu-Medrol. Patient is off diuretics creatinine 1.36, table by pulse, 109/69, no lightheadedness or dizziness upon standing, was anticipating discharge to home, rather than skilled ECF, in the next 24 hours with home care, patient does not have his own personal home O2, they have something from the that needs to be borrowed discharge planning, for home O2 device needed prior to discharge 03/27: Patient is still progressing well, appetite is okay without any aspiration, has 4 L room air 95%, no fever no chills, discharge planning is in progress, most likely would need home O2, to be provided prior for discharge. Vital vital signs are stable, no new problems at this time, home therapy is expected 03/28: Patient's doing well, no new problems today, 3 with home O2.5 L nasal cannula, 95%, awaiting discharge in the morning, with home O2, patient does not have his own personal device. Patient is diuresing well, less shortness of breath related to pleural effusion while on Lasix, no medication changes today, anticipate discharge in morning,, 03/29: Patient has been afebrile, heart rate in the 50s, blood pressure 116/61, 90% on 4 L high flow nasal cannula. Capillary blood glucose prior to lunch was 66 with repeat 68 and 85. Nephrology continues to follow with plan to avoid nephrotoxins, monitor renal function and urine output, outpatient follow-up for endocrinology for adrenal insufficiency workup, continue oral Lasix and potassium supplements, hold midodrine for systolic blood pressure greater than 110. Change prednisone to Cortef at discharge. And patient may require home oxygen. Pulmonary also suggest stopping amiodarone to avoid lung toxicity. Patient will be monitored overnight and plan for discharge home tomorrow. The patient's has been admitted over the weekend at [facility]. 03/30: Patient is now on 4 L high flow nasal cannula with pulse ox 95%. He is utilizing BiPAP at nighttime which he states he has at home. He's been afebrile, heart rate in the 50s, blood pressure 107/56. Sodium 134, potassium 3.9, chloride 99, CO2 28, BUN 54 creatinine 1.32. Capillary blood glucose running anywhere between 179 and 322. Nephrology is recommending avoiding nephrotoxins, monitor urine output and renal function, follow-up with endocrinology for adrenal insufficiency, continue oral Lasix and potassium supplementation and hold midodrine if blood pressures less than 110. Recommends continuing steroids changed to Cortef upon discharge. Pulmonary medicine has cleared the patient for discharge. Patient will be discharged home today in stable condition. Discharge diagnoses 1. Persistent atrial flutter with RVR status post cardioversion 03/21. 2. Acute on chronic diastolic heart failure. 3. Acute hypoxic respiratory failure secondary to possible postinfectious ARDS, possible gram-negative pneumonia not ruled out 4. Acute kidney injury secondary to prerenal and cardiorenal syndrome. 5. Hyperlipidemia. 6. Hypertension. 7. History of CVA or TIA. 8. Chronic interstitial lung disease, with COPD pleural effusion. 9. Mild aortic stenosis. 10. Coronary artery disease status post CABG and PCI 11. Obstructive sleep apnea with CPAP. 14. Recurrent depression. 15. Hypotension. 16. Chronic kidney disease stage III. 17. Diabetes mellitus type 2. 18. Chronic hypoxic respiratory failure requiring home oxygen therapy. DISCHARGE PLAN Home with [facility] on Monday. Greater than 35 minutes was utilized and coordinating patient's discharge. Impression and plan of care have been directed as dictated by the signing physician. Luci Farrar nurse practitioner acting as scribe for signing physician. Patient Condition at Discharge: Stable Plan - Discharge Summary Discharge Rx Participant: No New Discharge Prescriptions: New Ipratropium-Albuterol Nebulize [Duoneb 0.5 mg-3 mg/3 ml Soln] 3 ml INHALATION RT-QID PRN #120 each PRN Reason: Shortness Of Breath Or Wheezing Potassium Chloride ER [K-Dur 20] 20 meq PO DAILY #30 tab Atorvastatin [Lipitor] 40 mg PO DAILY #30 tab Metoprolol Tartrate [Lopressor] 25 mg PO BID #60 tab Furosemide [Lasix] 40 mg PO BID@0900,1600 #60 tab Continue Escitalopram [Lexapro] 20 mg PO DAILY Amiodarone [Cordarone] 200 mg PO DAILY sitaGLIPtin PHOSPHATE [Januvia] 100 mg PO DAILY Midodrine [ProAmatine] 5 mg PO AC-TID 30 Days #90 tab Apixaban [Eliquis] 5 mg PO BID Cholecalciferol [Vitamin D3 (125 Mcg = 5000 Iu)] 125 mcg PO DAILY Ascorbic Acid [Vitamin C] 1,000 mg PO DAILY QUEtiapine [SEROquel] 50 mg PO HS Zinc 50 mg PO DAILY Pantoprazole [Protonix] 40 mg PO AC-BRKFST #30 tab Acetaminophen Tab [Tylenol] 650 mg PO Q6HR PRN tab PRN Reason: Mild Pain Or Fever > 100.5 Hydrocortisone [Cortef] See Taper PO BID Discontinued Sodium Bicarbonate Tab 650 mg PO BID 30 Days #60 tab Discharge Medication List Amiodarone [Cordarone] 200 mg PO DAILY 11/02/21 [History] Apixaban [Eliquis] 5 mg PO BID 11/02/21 [History] Escitalopram [Lexapro] 20 mg PO DAILY 11/02/21 [History] Ascorbic Acid [Vitamin C] 1,000 mg PO DAILY 03/02/22 [History] Cholecalciferol [Vitamin D3 (125 Mcg = 5000 Iu)] 125 mcg PO DAILY 03/02/22 [History] QUEtiapine [SEROquel] 50 mg PO HS 03/02/22 [History] Zinc 50 mg PO DAILY 03/02/22 [History] sitaGLIPtin PHOSPHATE [Januvia] 100 mg PO DAILY 03/02/22 [History] Acetaminophen Tab [Tylenol] 650 mg PO Q6HR PRN tab 03/08/22 [Rx] Pantoprazole [Protonix] 40 mg PO AC-BRKFST #30 tab 03/08/22 [Rx] Hydrocortisone [Cortef] See Taper PO BID 03/12/22 [History] Atorvastatin [Lipitor] 40 mg PO DAILY #30 tab 03/30/22 [Rx] Furosemide [Lasix] 40 mg PO BID@0900,1600 #60 tab 03/30/22 [Rx] Ipratropium-Albuterol Nebulize [Duoneb 0.5 mg-3 mg/3 ml Soln] 3 ml INHALATION RT -QID PRN #120 each 03/30/22 [Rx] Metoprolol Tartrate [Lopressor] 25 mg PO BID #60 tab 03/30/22 [Rx] Midodrine [ProAmatine] 5 mg PO AC-TID 30 Days #90 tab 03/30/22 [Rx] Potassium Chloride ER [K-Dur 20] 20 meq PO DAILY #30 tab 03/30/22 [Rx] Follow up Appointment(s)/Referral(s): Angel Mcfarland MD [STAFF PHYSICIAN] - 1 Week Mina Gil MD [REFERRING] - 1 Week (Adrenal insufficiency) [facility], [NON-STAFF] - 1-2 Days Randy Saleh DO [Primary Care Provider] - 1-2 days Katina Frank MD [STAFF PHYSICIAN] - 1 Week Patient Instructions/Handouts: Heart Failure (ER), A-fib (Atrial Fibrillation) (ED), Heart Healthy Diet (ED), Seasoning Without Salt (DC), Shopping for a Healthy Diet (DC), Using Oxygen at Home (ED), Leg Edema (ED), Air Travel With Oxygen (GEN), Low-Sodium Diet (ED), Hypoxia (GEN), Mediterranean Diet (DC) Discharge/Stand Alone Forms: Personal Direct Service Provider Discharge Disposition: HOME WITH HOME HEALTH SERVICES
[2022-03-30 12:26] LABS: Glucose,Whole Blood 136 mg/dL (70-110)
--- NOTE | 2022-03-30 13:02 | P.PN ---
Subjective Progress Note Date: 03/30/22 Principal diagnosis: Shortness of breath 71-year-old male who presented to the emergency department on March 12, complaining of shortness of breath. The patient had shortness of breath about a day or so prior to admission. The patient complained about being fatigued. There was no chest pain or palpitations. He denied any cough or phlegm production. No leg pain or leg swelling. The patient apparently denied any chest pain or chest discomfort. We were asked to see the patient today, for shortness of breath. Currently, he's on a 40% Venturi mask. His clinical picture is consistent with CHF. His BMP was elevated. He is on saline at KVO. I placed the patient on BiPAP at 12/5 and 40%, to see we can make him a bit more comfortable. I asked him whether or not he was any better, the same, or any worse since he was admitted. He stated about the same. I did speak to the nurse, Margaret about the patient. She thought the patient was relatively stable and has not deteriorated. The patient apparently has a history of atrial fibrillation, diabetes, GERD, hyperlipidemia, hypertension, myocardial infarction, chronic renal insufficiency, mild aortic stenosis, and possible COPD from previous tobacco use. The patient is also had heart catheterization with stent placement, and bypass grafting. White count 10.6, hemoglobin 9.5, hematocrit 31.2, and platelet count 355,000. Sodium 142, potassium 4.1, chlorides 105, CO2 25, anion gap 12, BUN 36, and creatinine 1.15. On admission, his N-terminal proBNP was 10,800. Chest x-ray in my opinion is consistent with fluid overload/CHF, and interstitial edema. The patient does have bilateral pleural effusions. Progress note dated 03/18/2022. 71-year-old male seen yesterday in consultation. Please see the note above. Today, the patient's feeling better. Yesterday, he was placed on BiPAP, with settings of 12/5 and 40%. Currently, he's using a 40% Venturi mask. I explained to the patient, they he could go back on BiPAP anytime he wishes. The BiPAP will be especially useful for his congestive heart failure. White count 10.9, hemoglobin 9.9, hematocrit 32.1, and platelet count 409,000. Sodium 139, potassium 3.4, chlorides 102, CO2 25, anion gap 12, BUN 35, and creatinine 1.30. Calcium is 8.3. Chest x-ray from March 17 is evaluated. Progress note dated 03/20/2022. 71-year-old male seen in consultation on the . The patient was admitted with a diagnosis of CHF. Because of worsening respiratory distress, we placed him on BiPAP, with settings of 12/5 and 40%. When not using BiPAP, the patient could use a 40% Venturi mask, or nasal cannula. Clinically, the patient's feeling much better. He has been receiving Lasix. No new labs today other than a glucose of 151. Chest x-ray from March 19, was reviewed already. on 03/21/2022, the patient is being seen for a follow-up. I reviewed the records. The patient has been in the hospital for almost a week complaining of shortness of breath and ongoing issues with hypoxic respiratory failure without any much improvement. This morning, the patient had based on oxygen with a 40% Ventimaskand he was still having labored breathing. He was still tachycardic and a heart rate seemed to be in flutter in the rate of 140.blood gases was done today that showed a combination of respiratory and metabolic alkalosis. The patient had a pH of 7.6 with a pCO2 of 31 and pO2 of 67. Note that the patient was being diuresed aggressively with diuresis with IV Lasix and the patient was responding knowing that his initial presentation was most consistent with CHF. Electrodes from today still pending. From yesterday, the serum bicarb was a 28 with a mean of 37 and a creatinine of 1.4.the patient remains in flutter rhythm. The patient is being considered forcardioversion following a NU and this will be done by cardiology. The patient has no lower extremity edema. No other new complaints otherwise for now. No angina. No palpitation. Chest x-ray still showing bilateral pulmonary infiltrates more so with a peripheral distribution. There is also crackles in lung bases bilaterally on today's examination. 03/22/2022, the patient is being seen for a follow-up. Note that the patient's is an acute hypoxic respiratory failure and the patient is currently on a 40% Ventimask. No improvement in oxygenation and repeat chest x-ray was done showing diffuse bilateral pulmonary infiltrates with no interval change compared to the earlier chest x-rays. Note that there is a diffuse reticular another interstitial pattern along with cardiomegaly. Obviously the initial concern that this was CHF. Nevertheless, possibility of an underlying infectious or postinfectious causes/ARDS cannot be completely ruled out. Based on that, I would suggest further investigation. The patient is afebrile. The patient is hemodynamically stable. On today's blood work, his BUN is 45 with a creatinine of 1.4 and sodium level is at 138 and the patient was switched to oral Lasix. Note that his initial proBNP level was quite elevated supporting the diagnosis of CHF. Nevertheless, the response to the diuretics was suboptimal. Also, the patient underwent cardioversion yesterday and his cardiac rhythm is back to si nus. He remains on anticoagulants. He is started on IV Rocephin 03/23/2022, the patient remains hypoxic with a 50% Ventimask. Further investigation was done and this included a CAT scan of the chest that was completed yesterday without contrast and the CAT scan showed extensive disease with diffuse bilateral pulmonary consolidation and alveolar opacities most evident in the right lung and the relatively sparing the left lower lobe and this is suggestive of an acute infectious pneumonia. Underlying CHF is doubtful. The patient has small bilateral pleural effusion and cardiomegaly. On examination, he does have some coarse crackles in the lung bases bilaterally. Note that these are of a new onset knowing that 3 weeks ago, his infiltrates were not present. The patient did not respond well to diuretics. His BUN is at 45 with a creatinine of 1.4 and the patient is currently on oral Lasix. I also discontinued the IV Rocephin and put the patient on cefepime 2 g every 12 hours and the patient is also on IV Solu-Medrol 40 mg every 8 hours. No interval worsening shortness of breath. He is unable to breathe through his nose and he prefers the Ventimask for now. On and off she is also using the BiPAP. His cardiac rhythm is NSR controlled rate and there is no rapid ventricular response post cardioversion. 03/24/2022, the patient is feeling well. The patient remains on a 50% Ventimask and he prefers to be on a Ventimask as the patient is unable to take oxygen through his nostrils. No significant chest pain. He feels less short of breath compared to yesterday. Pulse ox is in the high 90s for now. He remains on IV cefepime. He remains on IV Solu-Medrol. No fever. No chills. No sweats. No other new complaints otherwise. His cardiac rhythm remains sinus and the patient is currently on oral amiodarone and the patient is also on Eliquis 5 mg by mouth twice a day.blood work from today includes electrolytes and the patient's creatinine is stable at 1.35 with a mean of 45 and his sodium level of 141. His connective tissue disease workup thus far has been negative. Legionella urine antigen was also negative. On 03/25/2022 , the patient is feeling well. The patient sitting up on a chair. He got himself off the Ventimask and the patient is currently on a nasal cannula at 7 L per minute. The patient is doing well. His oxidation is above 90%. He feels less short of breath. I had the patient on IV Solu Medrol 40 mg every 8 hours. He is also on IV cefepime. A repeat chest x-ray was done and it showed unchanged bilateral airspace disease and infiltrates which remains essentially unchanged. The patient is currently on oral Lasix 40 mg by mouth daily. Afebrile. The blood work from today showing a mean of 48 with a creatinine of 1.8. Sodium is at 141. Glucose is 161 and today's evaluation with a calcium level of 8.3. He has no complaints otherwise for now. No chest pain. Legionella urine antigen was negative. Connective tissue disease workup was also negative. 03/26/2022, the patient is stable 7 L of oxygen by nasal cannula. In the pulse ox in the order of 96%. No chest pain. No significant shortness of breath. Creatinine from yesterday was 1.8 and the findings on the case. The patient is currently on broad-spectrum antibiotics and the patient is currently on IV cefepime. The patient IV Solu-Medrol. The patient is on amiodarone 200 mg by mouth daily. He is also on Toprol 25 mg twice a day. Cardiac rhythm is sinus. He is off diuretics. 03/27/2022, no complaints, improving and the patient is currently on 5 L O2 nasal cannula. Remains on steroids and the patient is currently receiving IV Solu Medrol for every 8 hours and the patient is also on IV cefepime. He is tolerating his diet. His creatinine is stable at 1.2 with a BUN of 47 and the sodium level of 139. Noticed issues otherwise for now. He reports improvement in his shortness of breath. His kidney failure is improved as the patient was t aken off the diuretics. 03/28/2022, the patient is on 4 L of O2 nasal cannula. He is doing well. No specific complaints. He feels that his breathing is gradually improving. Is using incentive spirometer. He remains on IV cefepime which is emphatic coverage at this point, the patient is responding also prednisone 40 mg by mouth daily. There is a postinfectious ARDS rather than CHF. Function is stable. Within this patient off IV Lasix and the patient is currently on oral Lasix 40 mg twice a day. Chest x-ray findings are essentially unchanged with diffuse bilateral airspace disease On 03/29/2022 patient seen in follow-up on selective care unit. He is awake and alert, in no acute distress, on 4 L of oxygen is satting 97%, he did wear BiPAP support last night with pressures of 12 and 5 and FiO2 of 40%. He feels like his breathing is improving. Occasional cough, no chest discomfort, no hemoptysis. Last chest x-ray from 03/28/2022 showing multifocal airspace opacities superimposed on COPD changes with underlying suspected degree of pulmonary fibrosis. Patient continues on oral Lasix, amiodarone 200 mg daily, anticoagulation with a local was 5 mg twice daily, and prednisone 40 mg daily. Sputum culture show no growth. On 03/30/2022 patient seen in follow-up on selective care unit. Patient states his breathing continues to improve, he remains on 4 L of oxygen, pulse ox is 95%, this can probably be further wean down. Afebrile, no worsening cough or dyspnea, no chest pain. Patient remains on oral diuretics with Lasix 40 mg twice daily, he is on oral prednisone 40 mg daily, nebulized bronchodilators. Sputum culture has shown no growth. He's had no fever or chills. He remains on amiodarone 200 mg daily. Today's labs have been reviewed, sodium is 134, and respiratory electrolytes were within normal limits, BUN is 54, and creatinine is 1.32. Discharge home is pending with home health care today. Objective - Vital Signs Vital signs: Vital Signs Temp 97.6 F 03/30/22 08:00 Pulse 52 L 03/30/22 11:44 Resp 18 03/30/22 08:00 BP 107/56 03/30/22 08:00 Pulse Ox 95 03/30/22 08:00 FiO2 40 03/30/22 03:07 Intake & Output 03/29/22 03/30/22 03/30/22 18:59 06:59 18:59 Intake Total 480 247 Output Total 1150 1190 700 Balance -670 -1190 -011 Weight 75 kg Intake: IV 10 Invasive Line 4 10 Oral 480 237 Output: Urine 1150 1190 700 Other: Voiding Method Bedside Commode Bedside Commode Urinal Urinal Urinal # Voids 1 - Exam GENERAL EXAM: Alert, pleasant, 71-year-old, on 4 L of oxygen pulse ox 95% comfortable in no apparent distress. HEAD: Normocephalic/atraumatic. EYES: Normal reaction of pupils, equal size. Conjunctiva pink, sclera white. NOSE: Clear with pink turbinates. THROAT: No erythema or exudates. NECK: No masses, no JVD, no thyroid enlargement, no adenopathy. CHEST: No chest wall deformity. Symmetrical expansion. LUNGS: Equal air entry with no crackles, wheeze, rhonchi or dullness. CVS: Regular rate and rhythm, normal S1 and S2, no gallops, no murmurs, no rubs ABDOMEN: Soft, nontender. No hepatosplenomegaly, normal bowel sounds, no guarding or rigidity. EXTREMITIES: No clubbing, no edema, no cyanosis, 2+ pulses and upper and lower extremities. MUSCULOSKELETAL: Muscle strength and tone normal. SPINE: No scoliosis or deformity SKIN: No rashes CENTRAL NERVOUS SYSTEM: Alert and oriented -3. No focal deficits, tone is normal in all 4 extremities. PSYCHIATRIC: Alert and oriented -3. Appropriate affect. Intact judgment and insight. - Labs CBC & Chem 7: 03/19/22 07:57 03/30/22 07:49 Labs: Abnormal Lab Results - Last 24 Hours (Table) 03/29/22 03/29/22 03/30/22 Range/Units 16:22 20:28 07:05 Sodium (137-145) mmol/L BUN (9-20) mg/dL Creatinine (0.66-1.25) mg/dL Glucose (74-99) mg/dL POC Glucose (mg/dL) 237 H 322 H 179 H (70-110) mg/dL Calcium (8.4-10.2) mg/dL 03/30/22 03/30/22 Range/Units 07:49 12:25 Sodium 134 L (137-145) mmol/L BUN 54 H (9-20) mg/dL Creatinine 1.32 H (0.66-1.25) mg/dL Glucose 178 H (74-99) mg/dL POC Glucose (mg/dL) 136 H (70-110) mg/dL Calcium 8.3 L (8.4-10.2) mg/dL Assessment and Plan Plan: #1. Shortness of breath with diffuse bilateral pulmonary infiltrates and acute hypoxic respiratory failure. Possibility of CHF seems to be less likely, and possibly due to acute lung injury/ARDS with unknown etiology. COVID-19 PCR was negative, influenza screen was negative, connective tissue disease workup was negative #2. Possible postinfectious ARDS #3. History of chronic A. fib and flutter #4. Rule out possibility of amiodarone related lung toxicity #5. History of CAD with previous bypass grafting #6. History of CVA #7. Diabetes mellitus type 2 #8. History of myocardial infarction #9. Hypertension #10. Hyperlipidemia #11. Possible COPD #12. Mild aortic stenosis #13. Respiratory/metabolic alkalosis Plan: Vital signs are stable, No fever or chills Sputum culture show no growth Wean FiO2 However patient does qualify for home oxygen and home oxygen will be arranged at 2-4 L/m Discharge home is pending with home health care Patient is to continue on oral prednisone Continue breathing treatments Outpatient follow-up with Dr. Frank in the office in 7-10 days I have personally seen and examined the patient, performed the documentation and the assessment and plan as written. Number of minutes spent on the visit: [10] Time with Patient: Less than 30
[2022-03-30 13:05] VITALS: BP 113/63; TEMP 97.4
[2022-03-30 15:57] VITALS: PULSE 55
== END 2022-03-30 17:05 | disposition home health service (06) | DRG 291 ==
LOC: EC 11:44 → 3SCARD 13:00
PROVIDERS: ADMIT Internal Medicine Geriatric Medicine; ATTEND Internal Medicine Geriatric Medicine
PROC: 5A09357 Assistance with Respiratory Ventilation, Less than 24 Consecutive Hours, Continuous Positive Airway Pressure (ICD-10-PCS; principal; 2022-03-17)
PROC: B24BZZ4 Ultrasonography of Heart with Aorta, Transesophageal (ICD-10-PCS; 2022-03-21)
PROC: 5A2204Z Restoration of Cardiac Rhythm, Single (ICD-10-PCS; 2022-03-21)
DX: I13.0 Hypertensive heart and chronic kidney disease with heart failure and stage 1 through stage 4 chronic kidney disease, or unspecified chronic kidney disease (principal); I50.33 Acute on chronic diastolic (congestive) heart failure; J15.6 Pneumonia due to other Gram-negative bacteria; N17.0 Acute kidney failure with tubular necrosis; J80 Acute respiratory distress syndrome; E27.40 Unspecified adrenocortical insufficiency; E87.3 Alkalosis; F33.9 Major depressive disorder, recurrent, unspecified; I48.11 Longstanding persistent atrial fibrillation; J44.0 Chronic obstructive pulmonary disease with (acute) lower respiratory infection; J44.1 Chronic obstructive pulmonary disease with (acute) exacerbation; J84.9 Interstitial pulmonary disease, unspecified; I48.3 Typical atrial flutter; D63.1 Anemia in chronic kidney disease; E11.22 Type 2 diabetes mellitus with diabetic chronic kidney disease; E11.51 Type 2 diabetes mellitus with diabetic peripheral angiopathy without gangrene; N18.31 Chronic kidney disease, stage 3a; I08.3 Combined rheumatic disorders of mitral, aortic and tricuspid valves; I70.0 Atherosclerosis of aorta; J84.10 Pulmonary fibrosis, unspecified; I95.89 Other hypotension; Z20.822 Contact with and (suspected) exposure to COVID-19; T46.1X5A Adverse effect of calcium-channel blockers, initial encounter; Z95.1 Presence of aortocoronary bypass graft; Z79.01 Long term (current) use of anticoagulants; Z79.84 Long term (current) use of oral hypoglycemic drugs; E78.5 Hyperlipidemia, unspecified; E87.6 Hypokalemia; T50.2X5A Adverse effect of carbonic-anhydrase inhibitors, benzothiadiazides and other diuretics, initial encounter; G47.33 Obstructive sleep apnea (adult) (pediatric); I25.10 Atherosclerotic heart disease of native coronary artery without angina pectoris; I25.5 Ischemic cardiomyopathy; K21.9 Gastro-esophageal reflux disease without esophagitis; G89.29 Other chronic pain; M54.9 Dorsalgia, unspecified; I45.10 Unspecified right bundle-branch block; Z86.16 Personal history of COVID-19; T46.2X5A Adverse effect of other antidysrhythmic drugs, initial encounter; I25.2 Old myocardial infarction; Z86.73 Personal history of transient ischemic attack (TIA), and cerebral infarction without residual deficits; Z95.5 Presence of coronary angioplasty implant and graft; Z86.19 Personal history of other infectious and parasitic diseases; Z79.52 Long term (current) use of systemic steroids; Z79.899 Other long term (current) drug therapy; Z87.891 Personal history of nicotine dependence; Z99.3 Dependence on wheelchair; Z71.3 Dietary counseling and surveillance; Z88.5 Allergy status to narcotic agent; Z88.6 Allergy status to analgesic agent; Z87.09 Personal history of other diseases of the respiratory system; Z80.6 Family history of leukemia; Z82.3 Family history of stroke; Z82.49 Family history of ischemic heart disease and other diseases of the circulatory system; Z82.5 Family history of asthma and other chronic lower respiratory diseases
CPT/HCPCS: 36415; 36600; 71045; 71250; 80048; 80053; 82728; 82805; 83036; 83540; 83550; 83735; 83880; 84145; 84484; 85025; 85610; 85652; 85730; 86038; 86255; 86431; 87070; 87205; 87449; 87502; 87635; 92960; 93005; 93306; 93312; 93320; 93325; 94640; 94660; 94760

== ENCOUNTER 2022-04-05 08:25 | Inpatient (IN) | payer MEDICARE, OTHER ==
[2022-04-05] MEDS ORDERED: IPRATROPIUM-ALBUTEROL 3 ML NEB INHALATION STA (08:30)
[2022-04-05 09:13] LABS: Anisocytosis Slight; Basophils # (A) 0.1 k/uL (0-0.2); Basophils % (A) 0 %; Eosinophils # (A) 0.3 k/uL (0-0.7); Eosinophils % (A) 2 %; HCT 35.5 % (39.0-53.0); HGB 11.4 gm/dL (13.0-17.5); Hypochromasia Slight; Lymphocytes # (A) 0.5 k/uL (1.0-4.8); Lymphocytes % (A) 4 %; MCH 30.1 pg (25.0-35.0); MCHC 32.2 g/dL (31.0-37.0); MCV 93.5 fL (80.0-100.0); Mean Platelet Volume 8.4; Monocytes # (A) 0.6 k/uL (0-1.0); Monocytes % (A) 5 %; Neutrophils # (A) 10.4 k/uL (1.3-7.7); Neutrophils % (A) 86 %; Platelet Count 152 k/uL (150-450); Poikilocytosis Slight; RBC 3.79 m/uL (4.30-5.90); RDW 16.6 % (11.5-15.5)
[2022-04-05 09:19] LABS: VBG PH 7.41 (7.31-7.41)
--- NOTE | 2022-04-05 09:21 | ED ---
General Adult HPI - General Chief complaint: Shortness of Breath Stated complaint: MYRANDA Time Seen by Provider: 04/05/22 08:30 Source: patient, EMS, RN notes reviewed, old records reviewed Mode of arrival: EMS Limitations: altered mental status - History of Present Illness Initial comments: 71-year-old male presenting with severe respiratory distress. Patient found by paramedics to be hypoxic in the high 50s. EMS had been called for respiratory distress. The patient does use oxygen at home as needed. He has a history of COPD, atrial fibrillation and coronary artery disease. His been no reported fever. Patient was recently admitted to the hospital. Patient denies pain complaints but history is somewhat limited. - Related Data Home Medications Medication Instructions Recorded Confirmed Amiodarone [Cordarone] 200 mg PO DAILY 11/02/21 03/12/22 Apixaban [Eliquis] 5 mg PO BID 11/02/21 03/12/22 Escitalopram [Lexapro] 20 mg PO DAILY 11/02/21 03/12/22 Ascorbic Acid [Vitamin C] 1,000 mg PO DAILY 03/02/22 03/12/22 Cholecalciferol [Vitamin D3 (125 125 mcg PO DAILY 03/02/22 03/12/22 Mcg = 5000 Iu)] QUEtiapine [SEROquel] 50 mg PO HS 03/02/22 03/12/22 Zinc 50 mg PO DAILY 03/02/22 03/12/22 sitaGLIPtin PHOSPHATE [Januvia] 100 mg PO DAILY 03/02/22 03/12/22 Hydrocortisone [Cortef] See Taper PO BID 03/12/22 03/12/22 Previous Rx's Medication Instructions Recorded Acetaminophen Tab [Tylenol] 650 mg PO Q6HR PRN tab 03/08/22 Pantoprazole [Protonix] 40 mg PO AC-BRKFST #30 tab 03/08/22 Atorvastatin [Lipitor] 40 mg PO DAILY #30 tab 03/30/22 Furosemide [Lasix] 40 mg PO BID@0900,1600 #60 tab 03/30/22 Ipratropium-Albuterol Nebulize 3 ml INHALATION RT-QID PRN #120 03/30/22 [Duoneb 0.5 mg-3 mg/3 ml Soln] each Metoprolol Tartrate [Lopressor] 25 mg PO BID #60 tab 03/30/22 Midodrine [ProAmatine] 5 mg PO AC-TID 30 Days #90 tab 03/30/22 Potassium Chloride ER [K-Dur 20] 20 meq PO DAILY #30 tab 03/30/22 Allergies Allergy/AdvReac Type Severity Reaction Status Date / Time codeine Allergy Unknown Verified 04/05/22 08:36 Childhood morphine Allergy Unknown Verified 04/05/22 08:36 Childhood Review of Systems ROS Statement: Those systems with pertinent positive or pertinent negative responses have been documented in the HPI. ROS Other: All systems not noted in ROS Statement are negative. Past Medical History Past Medical History: Atrial Fibrillation, Coronary Artery Disease (CAD), COPD, CVA/TIA, Diabetes Mellitus, GERD/Reflux, Hyperlipidemia, Hypertension, Myocardial Infarction (GA), Renal Disease Additional Past Medical History / Comment(s): COPD, CVA multiple one in 1997, carotid artery disease, diabetes mellitus, chronic back pain, tenosynovitis involving the wrists and hands bilaterally, chronic renal failure, mild aortic stenosis with a peak gradient across the aortic valve of 70 mmHg; three heart attacks, last in 2001, colitis, recent discharge (4 days prior to admission) for "colitis attack and low iron" Last Myocardial Infarction Date:: 2001 History of Any Multi-Drug Resistant Organisms: None Reported Past Surgical History: Coronary Bypass/CABG, Heart Catheterization With Stent, Hernia Repair Additional Past Surgical History / Comment(s): March 1998 Cabg TRIPLE vessel by Dr. Ge. Cath with 3 stents. 4th stent 2016 at [place], COLONOSCOPY last one in August, pneumothorax Past Anesthesia/Blood Transfusion Reactions: No Reported Reaction Date of Last Stent Placement:: March 1998, 2015 Past Psychological History: No Psychological Hx Reported Smoking Status: Former smoker Past Alcohol Use History: None Reported Past Drug Use History: None Reported - Past Family History Father Family Medical History: Cancer Additional Family Medical History / Comment(s): Leukemia Father of leukemia at age 32yrs Mother Family Medical History: COPD Additional Family Medical History / Comment(s): Mother was 76 when she . She had mental illness. Sister(s) Family Medical History: Coronary Artery Disease (CAD), CVA/TIA Brother(s) Family Medical History: Coronary Artery Disease (CAD) General Exam General appearance: alert, in distress Head exam: Present: atraumatic, normocephalic Eye exam: Present: normal appearance, PERRL ENT exam: Present: mucous membranes dry Neck exam: Present: normal inspection. Absent: tenderness, meningismus Respiratory exam: Present: respiratory distress, accessory muscle use. Absent: wheezes, rales, rhonchi Cardiovascular Exam: Present: tachycardia, irregular rhythm GI/Abdominal exam: Present: soft. Absent: distended, tenderness, guarding Extremities exam: Present: normal inspection. Absent: calf tenderness Neurological exam: Present: alert, oriented X3. Absent: motor sensory deficit Psychiatric exam: Present: anxious Skin exam: Present: warm, dry Course Vital Signs 04/05/22 04/05/22 04/05/22 08:29 08:30 09:29 Pulse Rate 95 90 82 Respiratory 36 H 34 H 18 Rate Blood Pressure 106/59 106/59 O2 Sat by Pulse 67 L 97 Oximetry 04/05/22 09:39 Pulse Rate 72 Respiratory 18 Rate Blood Pressure O2 Sat by Pulse Oximetry EKG Findings - EKG Comments: EKG Findings:: EKG: Narrow complex rhythm suspect Atrial fibrillation with frequent PVC rate of 93, W[place] interval 116, QRS duration 128, QTC 410 Medical Decision Making - Medical Decision Making 71-year-old male presenting in extremity, he was found to be hypoxic in the 50s. Patient has improved during transport with supplemental oxygen. The time my evaluation is able to answer some simple questions. He is tachypneic but is maintaining his airway. Chest x-ray showing pulmonary fibrosis and CHF. He has mild leukocytosis, hemoglobin of 11.4. His creatinine kidney function is worsening at 2.4 creatinine. He has an elevated troponin of 0.1 and a significantly elevated BNP at 8700. The patient is given IV diuresis in the emergency department he will be maintained on supplemental oxygen. After discussion with Dr. Blandon who will admit him was evident that the patient should have been on home oxygen and likely was off his oxygen for an extended period of time resulting in his current issues. - Lab Data Result diagrams: 04/05/22 08:39 04/05/22 08:39 Lab Results 04/05/22 04/05/22 04/05/22 Range/Units 08:39 08:39 08:39 WBC 12.0 H (3.8-10.6) k/uL RBC 3.79 L (4.30-5.90) m/uL Hgb 11.4 L (13.0-17.5) gm/dL Hct 35.5 L (39.0-53.0) % MCV 93.5 (80.0-100.0) fL MCH 30.1 (25.0-35.0) pg MCHC 32.2 (31.0-37.0) g/dL RDW 16.6 H (11.5-15.5) % Plt Count 152 (150-450) k/uL MPV 8.4 Neutrophils % 86 % Lymphocytes % 4 % Monocytes % 5 % Eosinophils % 2 % Basophils % 0 % Neutrophils # 10.4 H (1.3-7.7) k/uL Lymphocytes # 0.5 L (1.0-4.8) k/uL Monocytes # 0.6 (0-1.0) k/uL Eosinophils # 0.3 (0-0.7) k/uL Basophils # 0.1 (0-0.2) k/uL Hypochromasia Slight Poikilocytosis Slight Anisocytosis Slight PT 12.2 H (9.0-12.0) sec INR 1.2 H (<1.2) APTT 27.6 (22.0-30.0) sec VBG pH (7.31-7.41) VBG pCO2 (37-51) mmHg VBG HCO3 (24-28) mmol/L Sodium 137 (137-145) mmol/L Potassium 5.1 (3.5-5.1) mmol/L Chloride 102 (98-107) mmol/L Carbon Dioxide 24 (22-30) mmol/L Anion Gap 11 mmol/L BUN 56 H (9-20) mg/dL Creatinine 2.42 H (0.66-1.25) mg/dL Est GFR (CKD-EPI)AfAm 30 (>60 ml/min/1.73 sqM) Est GFR (CKD-EPI)NonAf 26 (>60 ml/min/1.73 sqM) Glucose 166 H (74-99) mg/dL Plasma Lactic Acid Paco (0.7-2.0) mmol/L Calcium 8.2 L (8.4-10.2) mg/dL Magnesium 2.1 (1.6-2.3) mg/dL Total Bilirubin 1.3 (0.2-1.3) mg/dL AST 40 (17-59) U/L ALT 31 (4-49) U/L Alkaline Phosphatase 167 H (38-126) U/L Troponin I (0.000-0.034) ng/mL NT-Pro-B Natriuret Pep pg/mL Total Protein 5.5 L (6.3-8.2) g/dL Albumin 2.8 L (3.5-5.0) g/dL Coronavirus (PCR) (Not Detectd) Influenza Type A RNA (Not Detectd) Influenza Type B (PCR) (Not Detectd) 04/05/22 04/05/22 04/05/22 Range/Units 08:39 08:39 08:39 WBC (3.8-10.6) k/uL RBC (4.30-5.90) m/uL Hgb (13.0-17.5) gm/dL Hct (39.0-53.0) % MCV (80.0-100.0) fL MCH (25.0-35.0) pg MCHC (31.0-37.0) g/dL RDW (11.5-15.5) % Plt Count (150-450) k/uL MPV Neutrophils % % Lymphocytes % % Monocytes % % Eosinophils % % Basophils % % Neutrophils # (1.3-7.7) k/uL Lymphocytes # (1.0-4.8) k/uL Monocytes # (0-1.0) k/uL Eosinophils # (0-0.7) k/uL Basophils # (0-0.2) k/uL Hypochromasia Poikilocytosis Anisocytosis PT (9.0-12.0) sec INR (<1.2) APTT (22.0-30.0) sec VBG pH (7.31-7.41) VBG pCO2 (37-51) mmHg VBG HCO3 (24-28) mmol/L Sodium (137-145) mmol/L Potassium (3.5-5.1) mmol/L Chloride (98-107) mmol/L Carbon Dioxide (22-30) mmol/L Anion Gap mmol/L BUN (9-20) mg/dL Creatinine (0.66-1.25) mg/dL Est GFR (CKD-EPI)AfAm (>60 ml/min/1.73 sqM) Est GFR (CKD-EPI)NonAf (>60 ml/min/1.73 sqM) Glucose (74-99) mg/dL Plasma Lactic Acid Paco 2.3 H* (0.7-2.0) mmol/L Calcium (8.4-10.2) mg/dL Magnesium (1.6-2.3) mg/dL Total Bilirubin (0.2-1.3) mg/dL AST (17-59) U/L ALT (4-49) U/L Alkaline Phosphatase (38-126) U/L Troponin I 0.108 H* (0.000-0.034) ng/mL NT-Pro-B Natriuret Pep 8780 pg/mL Total Protein (6.3-8.2) g/dL Albumin (3.5-5.0) g/dL Coronavirus (PCR) (Not Detectd) Influenza Type A RNA (Not Detectd) Influenza Type B (PCR) (Not Detectd) 04/05/22 04/05/22 04/05/22 Range/Units 08:39 08:39 08:39 WBC (3.8-10.6) k/uL RBC (4.30-5.90) m/uL Hgb (13.0-17.5) gm/dL Hct (39.0-53.0) % MCV (80.0-100.0) fL MCH (25.0-35.0) pg MCHC (31.0-37.0) g/dL RDW (11.5-15.5) % Plt Count (150-450) k/uL MPV Neutrophils % % Lymphocytes % % Monocytes % % Eosinophils % % Basophils % % Neutrophils # (1.3-7.7) k/uL Lymphocytes # (1.0-4.8) k/uL Monocytes # (0-1.0) k/uL Eosinophils # (0-0.7) k/uL Basophils # (0-0.2) k/uL Hypochromasia Poikilocytosis Anisocytosis PT (9.0-12.0) sec INR (<1.2) APTT (22.0-30.0) sec VBG pH 7.41 (7.31-7.41) VBG pCO2 40 (37-51) mmHg VBG HCO3 25 (24-28) mmol/L Sodium (137-145) mmol/L Potassium (3.5-5.1) mmol/L Chloride (98-107) mmol/L Carbon Dioxide (22-30) mmol/L Anion Gap mmol/L BUN (9-20) mg/dL Creatinine (0.66-1.25) mg/dL Est GFR (CKD-EPI)AfAm (>60 ml/min/1.73 sqM) Est GFR (CKD-EPI)NonAf (>60 ml/min/1.73 sqM) Glucose (74-99) mg/dL Plasma Lactic Acid Paco (0.7-2.0) mmol/L Calcium (8.4-10.2) mg/dL Magnesium (1.6-2.3) mg/dL Total Bilirubin (0.2-1.3) mg/dL AST (17-59) U/L ALT (4-49) U/L Alkaline Phosphatase (38-126) U/L Troponin I (0.000-0.034) ng/mL NT-Pro-B Natriuret Pep pg/mL Total Protein (6.3-8.2) g/dL Albumin (3.5-5.0) g/dL Coronavirus (PCR) Not Detected (Not Detectd) Influenza Type A RNA Not Detected (Not Detectd) Influenza Type B (PCR) Not Detected (Not Detectd) Critical Care Time Critical Care Time: Yes Total Critical Care Time: 35 Disposition Clinical Impression: Congestive heart failure, Elevated troponin, Acute kidney injury Disposition: ADMITTED IP TO THIS HOSP Condition: Serious Is patient prescribed a controlled substance at d/c from ED?: No Referrals: Randy Saleh DO [Primary Care Provider] - 1-2 days Time of Disposition: 10:02
[2022-04-05 09:23] LABS: Albumin 2.8 g/dL (3.5-5.0); Calcium 8.2 mg/dL (8.4-10.2); INR 1.2 (<1.2); Magnesium 2.1 mg/dL (1.6-2.3); Potassium 5.1 mmol/L (3.5-5.1); Total Bilirubin 1.3 mg/dL (0.2-1.3); Total Protein 5.5 g/dL (6.3-8.2)
[2022-04-05 09:24] LABS: Partial Thromboplastin Time 27.6 sec (22.0-30.0); Prothrombin Time 12.2 sec (9.0-12.0)
--- NOTE | 2022-04-05 09:34 | XR ---
EXAMINATION TYPE: XR chest 1V portable DATE OF EXAM: 04/05/2022 COMPARISON: Chest x-ray 03/28/2022 HISTORY: Difficulty breathing TECHNIQUE: Single frontal view of the chest is obtained. FINDINGS: Patient is post median sternotomy, superior sternal wire is again fracture. Bilateral airs pace disease is noted, this blunting of the costophrenic angles. No evident pneumothorax. Heart is st able and enlarged. IMPRESSION: Correlate for possible congestive heart failure. Pneumonia is not excluded. Suspect unde rlying interstitial lung disease, correlate.
[2022-04-05] MEDS ORDERED: FUROSEMIDE 10 MG/ML 4 ML VIAL IV STA (09:55)
[2022-04-05] MEDS ORDERED: ACETAMINOPHEN TAB 325 MG TAB PO PRN (10:02)
[2022-04-05] MEDS ORDERED: NALOXONE 0.4 MG/ML 1 ML VIAL IV PRN (10:02)
[2022-04-05] MEDS: MIDODRINE 5 MG TAB PO SCH ×2 (12:29→17:11)
[2022-04-05] MEDS: IPRATROPIUM-ALBUTEROL 3 ML NEB INHALATION PRN ×2 (15:04→20:06)
[2022-04-05] MEDS: HYDROCORTISONE 10 MG TAB PO SCH (20:38)
[2022-04-05] MEDS: APIXABAN 5 MG TAB PO SCH (20:39)
[2022-04-05] MEDS: METOPROLOL TARTRATE 25 MG TAB PO SCH (20:39)
[2022-04-05] MEDS: QUEtiapine 50 MG TAB PO SCH (20:39)
[2022-04-05 20:50] LABS: Glucose,Whole Blood 146 mg/dL (70-110)
--- NOTE | 2022-04-05 22:49 | P.HPIM ---
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 who was in the hospital recently between 03/12 till 03/30/2022for CHF with a flutter and A. fib, was O2 dependent for many days his oxygenation does not stabilize until almost the day of his discharge was require anywhere between 60 percentile O2 on Ventimask to 6-8 L of oxygen. The last 2 days of his hospitalization his oxygen sat improve on 4 L O2 which patient ended up being discharged on O2 during the daytime and BiPAP at nighttime. Apparently patient found to be in quite respiratory distress according to the walk-in to find him without his oxygen in extreme respiratory distress ended up calling 911 patient found to have pulse ox of 50 percentile only was placed on 100 percentile oxygen was quite but confused ended up coming to the emergency department where was seen and evaluated after having him on BiPAP and higher oxygen flow he improved slight bit was kept on BiPAP for the time. Testing this time including chest x-ray continued to show sign and symptom of congestive heart failure with slight scar tissue and mild fibrosis compatible with with he had 2 weeks ago the hospital. EKG showed patient is an sinus rhythm with multiple PVCs no sign of A. fib and it at the time. Laboratory value shows moderately elevated white blood cell with left shift his creatinine is much worse than last time up to 2.4 to with GFR dropped down to 26 his troponin was elevated at 0.108 with BNP of 8780 COVID-19 and influenza were negative.patient was kept on BiPAP and admitted to the floor with the above problem. REVIEW OF SYSTEMS Constitutional: No fever, no chills, no night sweats. No weight change. Reports chronic weakness, no fatigue no lethargy. No daytime sleepiness. EENT: No headache. No blurred vision or double vision, no loss of vision. No loss of Hearing, no ringing in the ears, no dizziness. No nasal drainage or congestion. No epistaxis. No sore throat. Lungs: No shortness of breath, cough, no sputum production. No wheezing. Cardiovascular: No chest pain, no lower extremity edema. No palpitations. No paroxysmal nocturnal dyspnea. No orthopnea. No lightheadedness or dizziness. No syncopal episodes. Abdominal: No abdominal pain. No nausea, vomiting. No diarrhea. No constipati on. No bloody or tarry stools. No loss of appetite. Genitourinary: No dysuria, increased frequency, urgency. No urinary retention. Musculoskeletal: No myalgias. Reports muscle weakness, reports chronic gait dysfunction, no frequent falls. No back pain. No neck pain. Integumentary: No wounds, no lesions. No rash or pruritus. No unusual bruising. No change in hair or nails. Neurologic: No aphasia. No facial droop. No change in mentation. No head injury. No headache. No paralysis. No paresthesia. Psychiatric: No depression. No anxiety. No mood swings. Endocrine: No abnormal blood sugars. No weight change. No excessive sweating or thirst. No cold intolerance. SOCIAL HISTORY Patient was a smoker and quit in 1997. No alcohol use and no marijuana or illi cit drug use. Patient is and lives at home with his . He does not utilize oxygen, nebulizer, CPAP. . FAMILY HISTORY Mother at age 76. Father at age 32 from leukemia. Patient has 2 sisters one had history of stroke 1 coronary artery disease. Patient has 1 mother with coronary artery disease. PHYSICAL EXAMINATION Gen: This is a 70-year-old male. He is resting on the ER stretcher and appears to be comfortable and in no acute distress. HEENT: Head is atraumatic, normocephalic. Pupils equal, round. Sclerae is anicteric. Dentition is in very poor order. Multiple caries. NECK: Supple. No JVD. No lymphadenopathy. No thyromegaly. LUNGS: Clear to auscultation. No wheezes or rhonchi. No intercostal retracti ons. HEART: Regular rate and rhythm. No murmur. Tachycardia. ABDOMEN: Soft. Bowel sounds are present. No masses. No tenderness. EXTREMITIES: No pedal edema. No calf tenderness. Dorsalis pedis +2 b ilaterally. NEUROLOGICAL: Patient is awake, alert and oriented x3. Cranial nerves 2 through 12 are grossly intact. ASSESSMENT AND PLAN - acute on chronic respiratory failure: Secondary to severe hypoxia with lack of oxygen and being off BiPAP and is oxygen for. This time. Patient was hospitalized will continue BiPAP looking at his presentation his mildly elevated troponin with CHF at this time also mildly elevated lactic acid with sign of bronchitis, Continue BiPAP try to keep patient on his 4 L of oxygen by tomorrow morning. - elevated troponin with possible non-ST PA, patient be seen cardiology CK with troponin 3 be done patient will be going for probably ultrasound of the heart compared to the last presentation see if there is any abnormality in wall mot ion. - Acute kidney injury: Kidney function is much worse most likely from acute tubular necrosis, we watch patient symptom with gentle hydration repeat CMP in the morning. - pulmonary fibrosis: From last admission patient has been watched by pulmonary we'll continue current management for now continue oxygen along with updraft treatment smaller dose of steroid. - Adrenal insufficiency: Has been on Cortef 5 mg twice a day blood pressure is holding well on midodrine as well. - Chronic persistent atrial fibrillation with previous cardioversion 2. Continue amiodarone, eliquis, Cardizem, digoxin, Toprol-XL. - type 2 diabetes: Resume Januvia, along with Accu-Chek with sliding scales cove rage. - Hypertension. Continue Toprol-XL, Cardizem, Lasix. - Hyperlipidemia. Continue atorvastatin 80 mg at bedtime - History of stroke. Continue atorvastatin and eliquis for secondary preven tion. - Peripheral vascular disease with history of carotid stenosis. Continue atorvastatin and eliquis for secondary prevention. - Anemia of chronic kidney disease. - Generalized debility following recent hospitalization at [facility] for acute kidney injury, Covid 19 with acute on chronic respiratory failure. - Chronic back pain. Continue Flexeril 10 mg at bedtime. - DVT prophylaxis: Patient be continue on anticoagulation. - GI prophylaxis: Patient will be continue on pantoprazole. CODE STATUS: Full code. Admit patient to the inpatient service for more than 2 night stay. Past Medical History Past Medical History: Atrial Fibrillation, Coronary Artery Disease (CAD), Heart Failure, COPD, CVA/TIA, Diabetes Mellitus, GERD/Reflux, Hyperlipidemia, Hypertension, Myocardial Infarction (PA), Pneumonia, Renal Disease, Vascular Disorder Additional Past Medical History / Comment(s): Pt recently admitted to [facility] on 03/12/22 with persistent A flutter with RVR, acute on chronic CHF. 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 Last Myocardial Infarction Date:: 2001 History of Any Multi-Drug Resistant Organisms: None Reported Past Surgical History: Coronary Bypass/CABG, Heart Catheterization With Stent, Hernia Repair Additional Past Surgical History / Comment(s): L VATS, 1997 CABG 3 vessel, NU/cardioversions, abdominal hernia repair, colonoscopy. Past Anesthesia/Blood Transfusion Reactions: No Reported Reaction Date of Last Stent Placement:: March 19982015 Smoking Status: Former smoker - Past Family History Father Family Medical History: Cancer Additional Family Medical History / Comment(s): Leukemia Father of leukemia at age 32yrs Mother Family Medical History: COPD Additional Family Medical History / Comment(s): Mother was 76 when she . She had mental illness. Sister(s) Family Medical History: Coronary Artery Disease (CAD), CVA/TIA Brother(s) Family Medical History: Coronary Artery Disease (CAD) Medications and Allergies Home Medications Medication Instructions Recorded Confirmed Type Amiodarone [Cordarone] 200 mg PO DAILY 11/02/21 04/05/22 History Apixaban [Eliquis] 5 mg PO BID 11/02/21 04/05/22 History Escitalopram [Lexapro] 20 mg PO DAILY 11/02/21 04/05/22 History Ascorbic Acid [Vitamin C] 1,000 mg PO DAILY 03/02/22 04/05/22 History Cholecalciferol [Vitamin D3 (125 125 mcg PO DAILY 03/02/22 04/05/22 History Mcg = 5000 Iu)] QUEtiapine [SEROquel] 50 mg PO HS 03/02/22 04/05/22 History Zinc 50 mg PO DAILY 03/02/22 04/05/22 History sitaGLIPtin PHOSPHATE [Januvia] 100 mg PO DAILY 03/02/22 04/05/22 History Acetaminophen Tab [Tylenol] 650 mg PO Q6HR PRN tab 03/08/22 04/05/22 Rx Pantoprazole [Protonix] 40 mg PO AC-BRKFST #30 tab 03/08/22 04/05/22 Rx Hydrocortisone [Cortef] 5 mg PO BID 03/12/22 04/05/22 History Atorvastatin [Lipitor] 40 mg PO DAILY #30 tab 03/30/22 04/05/22 Rx Furosemide [Lasix] 40 mg PO BID@0900,1600 #60 tab 03/30/22 04/05/22 Rx Ipratropium-Albuterol Nebulize 3 ml INHALATION RT-QID PRN #120 03/30/22 04/05/22 Rx [Duoneb 0.5 mg-3 mg/3 ml Soln] each Metoprolol Tartrate [Lopressor] 25 mg PO BID #60 tab 03/30/22 04/05/22 Rx Midodrine [ProAmatine] 5 mg PO AC-TID 30 Days #90 tab 03/30/22 04/05/22 Rx Potassium Chloride ER [K-Dur 20] 20 meq PO DAILY #30 tab 03/30/22 04/05/22 Rx metroNIDAZOLE [Flagyl] 500 mg PO BID 04/05/22 04/05/22 History Allergies Allergy/AdvReac Type Severity Reaction Status Date / Time codeine Allergy Unknown Verified 04/05/22 08:36 Childhood morphine Allergy Unknown Verified 04/05/22 08:36 Childhood Physical Exam Vitals: Vital Signs Temp Pulse Pulse Resp BP BP Pulse Ox 04/05/22 16:32 92 L 04/05/22 16:00 97.8 F 69 18 101/60 94 L 04/05/22 15:17 65 04/05/22 15:04 62 99 04/05/22 14:22 63 24 89/55 100 04/05/22 12:30 68 22 86/65 95 04/05/22 10:05 98.0 F 72 26 H 95/50 100 04/05/22 09:39 72 18 04/05/22 09:29 82 18 04/05/22 08:30 90 32 H 106/59 97 04/05/22 08:29 95 36 H 106/59 67 L FiO2 04/05/22 16:32 50 04/05/22 16:00 50 04/05/22 15:17 04/05/22 15:04 04/05/22 14:22 04/05/22 12:30 04/05/22 10:05 04/05/22 09:39 04/05/22 09:29 04/05/22 08:30 04/05/22 08:29 Intake and Output 04/05/22 04/05/22 04/05/22 06:59 14:59 22:59 Output Total 300 Balance -300 Output: Urine 300 Other: Weight 77.111 kg 77.111 kg Results CBC & Chem 7: 04/05/22 08:39 04/05/22 08:39 Labs: Abnormal Lab Results - Last 24 Hours (Table) 04/05/22 04/05/22 04/05/22 Range/Units 08:39 08:39 08:39 WBC 12.0 H (3.8-10.6) k/uL RBC 3.79 L (4.30-5.90) m/uL Hgb 11.4 L (13.0-17.5) gm/dL Hct 35.5 L (39.0-53.0) % RDW 16.6 H (11.5-15.5) % Neutrophils # 10.4 H (1.3-7.7) k/uL Lymphocytes # 0.5 L (1.0-4.8) k/uL PT 12.2 H (9.0-12.0) sec INR 1.2 H (<1.2) BUN 56 H (9-20) mg/dL Creatinine 2.42 H (0.66-1.25) mg/dL Glucose 166 H (74-99) mg/dL Plasma Lactic Acid Paco (0.7-2.0) mmol/L Calcium 8.2 L (8.4-10.2) mg/dL Alkaline Phosphatase 167 H (38-126) U/L Troponin I (0.000-0.034) ng/mL Total Protein 5.5 L (6.3-8.2) g/dL Albumin 2.8 L (3.5-5.0) g/dL 07/12/22 07/12/22 07/12/22 Range/Units 08:39 08:39 11:17 WBC (3.8-10.6) k/uL RBC (4.30-5.90) m/uL Hgb (13.0-17.5) gm/dL Hct (39.0-53.0) % RDW (11.5-15.5) % Neutrophils # (1.3-7.7) k/uL Lymphocytes # (1.0-4.8) k/uL PT (9.0-12.0) sec INR (<1.2) BUN (9-20) mg/dL Creatinine (0.66-1.25) mg/dL Glucose (74-99) mg/dL Plasma Lactic Acid Paco 2.3 H* (0.7-2.0) mmol/L Calcium (8.4-10.2) mg/dL Alkaline Phosphatase (38-126) U/L Troponin I 0.108 H* 0.140 H* (0.000-0.034) ng/mL Total Protein (6.3-8.2) g/dL Albumin (3.5-5.0) g/dL 04/05/22 Range/Units 14:39 WBC (3.8-10.6) k/uL RBC (4.30-5.90) m/uL Hgb (13.0-17.5) gm/dL Hct (39.0-53.0) % RDW (11.5-15.5) % Neutrophils # (1.3-7.7) k/uL Lymphocytes # (1.0-4.8) k/uL PT (9.0-12.0) sec INR (<1.2) BUN (9-20) mg/dL Creatinine (0.66-1.25) mg/dL Glucose (74-99) mg/dL Plasma Lactic Acid Paco (0.7-2.0) mmol/L Calcium (8.4-10.2) mg/dL Alkaline Phosphatase (38-126) U/L Troponin I 0.154 H* (0.000-0.034) ng/mL Total Protein (6.3-8.2) g/dL Albumin (3.5-5.0) g/dL Thrombosis Risk Factor Assmnt - Choose All That Apply Any of the Below Risk Factors Present?: Yes Each Factor Represents 1 point: Abnormal pulmonary function (COPD), Heart failure (<1month) Other Risk Factors: Yes Each Risk Factor Represents 2 Points: Age 61-74 years Other congenital or acquired thrombophilia - If yes, enter type in comment: No Thrombosis Risk Factor Assessment Total Risk Factor Score: 4 Thrombosis Risk Factor Assessment Level: Moderate Risk
[2022-04-06] MEDS: ACETAMINOPHEN TAB 325 MG TAB PO PRN (02:57)
[2022-04-06 06:24] LABS: Glucose,Whole Blood 139 mg/dL (70-110)
[2022-04-06] MEDS: ESCITALOPRAM 20 MG TAB PO SCH (08:23)
[2022-04-06] MEDS: ATORVASTATIN 40 MG TAB PO SCH (08:23)
[2022-04-06] MEDS: APIXABAN 5 MG TAB PO SCH ×2 (08:23→21:10)
[2022-04-06] MEDS: POTASSIUM CHLORIDE ER 20 MEQ TAB.ER PO SCH (08:23)
[2022-04-06] MEDS: PANTOPRAZOLE 40 MG TABLET PO SCH (08:23)
[2022-04-06] MEDS: MIDODRINE 5 MG TAB PO SCH ×3 (08:23→16:54)
[2022-04-06] MEDS: LINAGLIPTIN 5 MG TABLET PO SCH (08:23)
[2022-04-06] MEDS: HYDROCORTISONE 10 MG TAB PO SCH ×2 (08:24→21:10)
[2022-04-06] MEDS: IPRATROPIUM-ALBUTEROL 3 ML NEB INHALATION PRN ×4 (08:32→20:23)
[2022-04-06] MEDS ORDERED: FUROSEMIDE 10 MG/ML 4 ML VIAL IV STA ×2 (09:19→14:12)
--- NOTE | 2022-04-06 11:06 | P.PN ---
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 who was in the hospital recently between 03/12 till 03/30/2022for CHF with a flutter and A. fib, was O2 dependent for many days his oxygenation does not stabilize until almost the day of his discharge was require anywhere between 60 percentile O2 on Ventimask to 6-8 L of oxygen. The last 2 days of his hospitalization his oxygen sat improve on 4 L O2 which patient ended up being discharged on O2 during the daytime and BiPAP at nighttime. Apparently patient found to be in quite respiratory distress according to the walk-in to find him without his oxygen in extreme respiratory distress ended up calling 911 patient found to have pulse ox of 50 percentile only was placed on 100 percentile oxygen was quite but confused ended up coming to the emergency department where was seen and evaluated after having him on BiPAP and higher oxygen flow he improved slight bit was kept on BiPAP for the time. Testing this time including chest x-ray continued to show sign and symptom of congestive heart failure with slight scar tissue and mild fibrosis compatible with with he had 2 weeks ago the hospital. EKG showed patient is an sinus rhythm with multiple PVCs no sign of A. fib and it at the time. Laboratory value shows moderately elevated white blood cell with left shift his creatinine is much worse than last time up to 2.4 to with GFR dropped down to 26 his troponin was elevated at 0.108 with BNP of 8780 COVID-19 and influenza were negative.patient was kept on BiPAP and admitted to the floor with the above problem. 04/06: Patient is seen today on the cardiac stepdown unit. He is currently on high flow nasal cannula at 15 L with pulse ox 96%, blood pressure 79/49, heart rate 106, afebrile. Patient states he did not use BiPAP during the night. R epeat troponin 0.140 and 0.154. Cardiology is on consult as well as pulmonary medicine. We have asked nursing to hold amiodarone, metoprolol until seen by cardiology. A repeat dose of Lasix 40 mg IV 1 ordered. REVIEW OF SYSTEMS Constitutional: No fever, no chills, no night sweats. No weight change. Reports chronic weakness, no fatigue no lethargy. No daytime sleepiness. EENT: No headache. No blurred vision or double vision, no loss of vision. No loss of Hearing, no ringing in the ears, no dizziness. No nasal drainage or congestion. No epistaxis. No sore throat. Lungs: Reports shortness of breath, cough, no sputum production. No wheezing. Cardiovascular: No chest pain, no lower extremity edema. No palpitations. No paroxysmal nocturnal dyspnea. No orthopnea. No lightheadedness or dizziness. No syncopal episodes. Abdominal: No abdominal pain. No nausea, vomiting. No diarrhea. No constipation. No bloody or tarry stools. No loss of appetite. Genitourinary: No dysuria, increased frequency, urgency. No urinary retention. Musculoskeletal: No myalgias. Reports muscle weakness, reports chronic gait dysfunction, no frequent falls. No back pain. No neck pain. Integumentary: No wounds, no lesions. No rash or pruritus. No unusual bruising. No change in hair or nails. Neurologic: No aphasia. No facial droop. No change in mentation. No head injury. No headache. No paralysis. No paresthesia. Psychiatric: No depression. No anxiety. No mood swings. Endocrine: No abnormal blood sugars. No weight change. No excessive sweating or thirst. No cold intolerance. PHYSICAL EXAMINATION Gen: This is a 70-year-old male. He is resting in bed and appears to be comfortable. HEENT: Head is atraumatic, normocephalic. Pupils equal, round. Sclerae is anicteric. Dentition is in very poor order. Multiple caries. NECK: Supple. No JVD. No lymphadenopathy. No thyromegaly. LUNGS: Clear to auscultation. No wheezes or rhonchi. No intercostal retractions. HEART: Regular rate and rhythm. No murmur. Tachycardia. ABDOMEN: Soft. Bowel sounds are present. No masses. No tenderness. EXTREMITIES: No pedal edema. No calf tenderness. Dorsalis pedis +2 bilaterally. NEUROLOGICAL: Patient is awake, alert and oriented x3. Cranial nerves 2 through 12 are grossly intact. ASSESSMENT AND PLAN - acute on chronic respiratory failure: Secondary to severe hypoxia with lack of oxygen and being off BiPAP. Consult with pulmonary medicine and cardiology. Continue BiPAP try to keep patient on his 4 L of oxygen by tomorrow morning. - elevated troponin with possible non-ST TN, patient to be seen cardiology. - Acute kidney injury: Kidney function is much worse most likely from acute tubular necrosis, we watch patient symptom with gentle hydration repeat CMP in the morning. - pulmonary fibrosis: From last admission patient has been watched by pulmonary we'll continue current management for now continue oxygen along with updraft treatment smaller dose of steroid. - Adrenal insufficiency: Has been on Cortef 5 mg twice a day blood pressure is holding well on midodrine as well. - Chronic persistent atrial fibrillation with previous cardioversion 2. Continue amiodarone, eliquis, Cardizem, digoxin, Toprol-XL. - type 2 diabetes: Resume Januvia, along with Accu-Chek with sliding scales coverage. - Hypertension. Continue Toprol-XL, amiodarone, Lasix. - Hyperlipidemia. Continue atorvastatin 80 mg at bedtime - History of stroke. Continue atorvastatin and eliquis for secondary prevention. - Peripheral vascular disease with history of carotid stenosis. Continue atorvastatin and eliquis for secondary prevention. - Anemia of chronic kidney disease. - Generalized debility following recent hospitalization at [facility] for acute kidney injury, Covid 19 with acute on chronic respiratory failure. - Chronic back pain. Continue Flexeril 10 mg at bedtime. - DVT prophylaxis: Patient be continue on anticoagulation. - GI prophylaxis: Patient will be continue on pantoprazole. CODE STATUS: Full code. DISCHARGE PLAN TBD Impression and plan of care have been directed as dictated by the signing physician. Luci Farrar nurse practitioner acting as scribe for signing physician. Objective - Vital Signs Vital signs: Vital Signs Temp 100.7 F H 04/06/22 03:04 Pulse 68 04/06/22 03:04 Resp 32 H 04/06/22 03:04 BP 103/54 04/06/22 03:04 Pulse Ox 93 L 04/06/22 03:04 FiO2 50 04/05/22 16:32 Intake & Output 04/05/22 04/06/22 04/06/22 18:59 06:59 18:59 Output Total 300 200 Balance -300 -200 Weight 77.111 kg Output: Urine 300 200 Other: Voiding Method Urinal # Voids 1 - Labs CBC & Chem 7: 04/05/22 08:39 04/05/22 08:39 Labs: Abnormal Lab Results - Last 24 Hours (Table) 04/05/22 04/05/22 04/05/22 Range/Units 08:39 08:39 08:39 WBC 12.0 H (3.8-10.6) k/uL RBC 3.79 L (4.30-5.90) m/uL Hgb 11.4 L (13.0-17.5) gm/dL Hct 35.5 L (39.0-53.0) % RDW 16.6 H (11.5-15.5) % Neutrophils # 10.4 H (1.3-7.7) k/uL Lymphocytes # 0.5 L (1.0-4.8) k/uL PT 12.2 H (9.0-12.0) sec INR 1.2 H (<1.2) BUN 56 H (9-20) mg/dL Creatinine 2.42 H (0.66-1.25) mg/dL Glucose 166 H (74-99) mg/dL POC Glucose (mg/dL) (70-110) mg/dL Plasma Lactic Acid Paco (0.7-2.0) mmol/L Calcium 8.2 L (8.4-10.2) mg/dL Alkaline Phosphatase 167 H (38-126) U/L Troponin I (0.000-0.034) ng/mL Total Protein 5.5 L (6.3-8.2) g/dL Albumin 2.8 L (3.5-5.0) g/dL 04/05/22 04/05/22 04/05/22 Range/Units 08:39 08:39 11:17 WBC (3.8-10.6) k/uL RBC (4.30-5.90) m/uL Hgb (13.0-17.5) gm/dL Hct (39.0-53.0) % RDW (11.5-15.5) % Neutrophils # (1.3-7.7) k/uL Lymphocytes # (1.0-4.8) k/uL PT (9.0-12.0) sec INR (<1.2) BUN (9-20) mg/dL Creatinine (0.66-1.25) mg/dL Glucose (74-99) mg/dL POC Glucose (mg/dL) (70-110) mg/dL Plasma Lactic Acid Paco 2.3 H* (0.7-2.0) mmol/L Calcium (8.4-10.2) mg/dL Alkaline Phosphatase (38-126) U/L Troponin I 0.108 H* 0.140 H* (0.000-0.034) ng/mL Total Protein (6.3-8.2) g/dL Albumin (3.5-5.0) g/dL 04/05/22 04/05/22 04/06/22 Range/Units 14:39 20:43 05:41 WBC (3.8-10.6) k/uL RBC (4.30-5.90) m/uL Hgb (13.0-17.5) gm/dL Hct (39.0-53.0) % RDW (11.5-15.5) % Neutrophils # (1.3-7.7) k/uL Lymphocytes # (1.0-4.8) k/uL PT (9.0-12.0) sec INR (<1.2) BUN (9-20) mg/dL Creatinine (0.66-1.25) mg/dL Glucose (74-99) mg/dL POC Glucose (mg/dL) 146 H 139 H (70-110) mg/dL Plasma Lactic Acid Paco (0.7-2.0) mmol/L Calcium (8.4-10.2) mg/dL Alkaline Phosphatase (38-126) U/L Troponin I 0.154 H* (0.000-0.034) ng/mL Total Protein (6.3-8.2) g/dL Albumin (3.5-5.0) g/dL
[2022-04-06 11:41] LABS: Glucose,Whole Blood 124 mg/dL (70-110)
--- NOTE | 2022-04-06 11:50 | P.CNPUL ---
History of Present Illness Consult date: 04/06/22 Requesting physician: Jovanni Blandon Reason for consult: dyspnea, COPD, hypoxemia, pleural effusion, abnormal CXR/CT Chief complaint: Shortness of breath, CHF. History of present illness: Pulmonary consult dated 04/06/2022. 71-year-old male, who looks much older than his stated age, was brought into the emergency department on April 05, by EMS, for respiratory distress. Apparently he was found by the medics, to have saturations in the high 50s. Apparently EMS was called because of respiratory distress. The patient does use oxygen at home. She does have a history of COPD, CAD, and atrial fibrillation. The patient was recently admitted to the hospital for similar episode. Currently, the patient is on 10 L high flow oxygen. Saturations are 94%. The patient not receiving any IV fluids. The patient also could use BiPAP at 12/5 and 100%. We will have respiratory set him up on these settings. Currently labs, white count of 12, hemoglobin 11.4, hematocrit 35.5, and a platelet count of 252,000. PT is 12.2 with an INR 1.2. Venous blood gases show pCO2 of 40 and a pH is 7.41. Sod ium 137, potassium 5.1, chlorides 102, CO2 24, with a BUN and creatinine are 56 and 2.42 respectively. Troponin was 0.154. N-terminal proBNP was 8780. Chest x-ray was consistent with CHF. Review of Systems REVIEW OF SYSTEMS: CONSTITUTIONAL: [Negative.] NEUROLOGIC: [ Negative.] HEENT: [ Negative.] CARDIAC: Low saturations, shortness of breath. PULMONARY: [Negative.] GI: [Negative.] : [Negative.] RHEUMATOLOGIC: [ Negative.] IMMUNOLOGIC: [ Negative.] ENDOCRINE: [Negative. ] DERMATOLOGIC: [Negative.] Past Medical History Past Medical History: Atrial Fibrillation, Coronary Artery Disease (CAD), Heart Failure, COPD, CVA/TIA, Diabetes Mellitus, GERD/Reflux, Hyperlipidemia, Hypertension, Myocardial Infarction ([place]), Pneumonia, Renal Disease, Vascular Disorder Additional Past Medical History / Comment(s): Pt recently admitted to [facility] on 03/12/22 with persistent A flutter with RVR, acute on chronic CHF. 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 Last Myocardial Infarction Date:: 2001 History of Any Multi-Drug Resistant Organisms: None Reported Past Surgical History: Coronary Bypass/CABG, Heart Catheterization With Stent, Hernia Repair Additional Past Surgical History / Comment(s): L VATS, 1997 CABG 3 vessel, NU/cardioversions, abdominal hernia repair, colonoscopy. Past Anesthesia/Blood Transfusion Reactions: No Reported Reaction Date of Last Stent Placement:: March 19982015 Smoking Status: Former smoker - Past Family History Father Family Medical History: Cancer Additional Family Medical History / Comment(s): Leukemia Father of leukemia at age 32yrs Mother Family Medical History: COPD Additional Family Medical History / Comment(s): Mother was 76 when she . She had mental illness. Sister(s) Family Medical History: Coronary Artery Disease (CAD), CVA/TIA Brother(s) Family Medical History: Coronary Artery Disease (CAD) Medications and Allergies Home Medications Medication Instructions Recorded Confirmed Type Amiodarone [Cordarone] 200 mg PO DAILY 11/02/21 04/05/22 History Apixaban [Eliquis] 5 mg PO BID 11/02/21 04/05/22 History Escitalopram [Lexapro] 20 mg PO DAILY 11/02/21 04/05/22 History Ascorbic Acid [Vitamin C] 1,000 mg PO DAILY 03/02/22 04/05/22 History Cholecalciferol [Vitamin D3 (125 125 mcg PO DAILY 03/02/22 04/05/22 History Mcg = 5000 Iu)] QUEtiapine [SEROquel] 50 mg PO HS 03/02/22 04/05/22 History Zinc 50 mg PO DAILY 03/02/22 04/05/22 History sitaGLIPtin PHOSPHATE [Januvia] 100 mg PO DAILY 03/02/22 04/05/22 History Acetaminophen Tab [Tylenol] 650 mg PO Q6HR PRN tab 03/08/22 04/05/22 Rx Pantoprazole [Protonix] 40 mg PO AC-BRKFST #30 tab 03/08/22 04/05/22 Rx Hydrocortisone [Cortef] 5 mg PO BID 03/12/22 04/05/22 History Atorvastatin [Lipitor] 40 mg PO DAILY #30 tab 03/30/22 04/05/22 Rx Furosemide [Lasix] 40 mg PO BID@0900,1600 #60 tab 03/30/22 04/05/22 Rx Ipratropium-Albuterol Nebulize 3 ml INHALATION RT-QID PRN #120 03/30/22 04/05/22 Rx [Duoneb 0.5 mg-3 mg/3 ml Soln] each Metoprolol Tartrate [Lopressor] 25 mg PO BID #60 tab 03/30/22 04/05/22 Rx Midodrine [ProAmatine] 5 mg PO AC-TID 30 Days #90 tab 03/30/22 04/05/22 Rx Potassium Chloride ER [K-Dur 20] 20 meq PO DAILY #30 tab 03/30/22 04/05/22 Rx metroNIDAZOLE [Flagyl] 500 mg PO BID 04/05/22 04/05/22 History Allergies Allergy/AdvReac Type Severity Reaction Status Date / Time codeine Allergy Unknown Verified 04/05/22 08:36 Childhood morphine Allergy Unknown Verified 04/05/22 08:36 Childhood Physical Exam Osteopathic Statement: *. No significant issues noted on an osteopathic s tructural exam other than those noted in the History and Physical/Consult. Vitals: Vital Signs Temp Pulse Pulse Resp BP BP Pulse Ox 04/06/22 11:18 04/06/22 08:48 105 H 04/06/22 08:32 98 96 04/06/22 08:20 98.5 F 106 H 28 H 79/49 96 04/06/22 03:04 100.7 F H 68 32 H 103/54 93 L 04/06/22 02:55 100.6 F H 04/05/22 23:36 77 120/65 92 L 04/05/22 20:22 67 18 04/05/22 20:06 68 20 04/05/22 20:05 98.9 F 77 17 129/74 93 L 04/05/22 16:32 92 L 04/05/22 16:00 97.8 F 69 18 101/60 94 L 04/05/22 15:17 65 04/05/22 15:04 62 99 04/05/22 14:22 63 24 89/55 100 04/05/22 12:30 68 22 86/65 95 FiO2 04/06/22 11:18 60 04/06/22 08:48 04/06/22 08:32 04/06/22 08:20 04/06/22 03:04 04/06/22 02:55 04/05/22 23:36 04/05/22 20:22 04/05/22 20:06 04/05/22 20:05 04/05/22 16:32 50 04/05/22 16:00 50 04/05/22 15:17 04/05/22 15:04 04/05/22 14:22 04/05/22 12:30 Intake and Output 04/05/22 04/06/22 04/06/22 22:59 06:59 14:59 Intake Total 0 Output Total 300 200 Balance -300 -200 0 Intake: Oral 0 Output: Urine 300 200 Other: Voiding Method Urinal # Voids 1 Weight 77.111 kg Mild respiratory distress, with mild conversational dyspnea. No audible wheezing. The patient is oriented 3. HEENT examination is grossly unremarkable. Neck supple. Full range of motion. No adenopathy thyromegaly or neck vein distention. Cardiovascular examination reveals regular rhythm rate. S1-S2 normal. No S3 or S4. No discernible murmur noted. Heart rate 110 bpm. Heart sounds are distant. Lungs reveal bibasilar crackles. Diffuse rhonchi appreciated on inspiration and expiration. No wheezes. Breath sounds equal bilaterally. Saturations are in the mid 90s, on high flow nasal cannula at 10 L. Abdomen soft bowel sounds are heard. No masses or tenderness. Extremities are intact. No cyanosis clubbing or edema. Skin is without rash or lesion. Neurologic examination is brief but nonfocal. Results - Laboratory Findings CBC and BMP: 04/05/22 08:39 04/05/22 08:39 PT/INR, D-dimer PT 12.2 sec (9.0-12.0) H 04/05/22 08:39 INR 1.2 (<1.2) H 04/05/22 08:39 Abnormal lab findings: Abnormal Labs 04/05/22 04/05/22 04/05/22 08:39 08:39 08:39 WBC 12.0 H RBC 3.79 L Hgb 11.4 L Hct 35.5 L RDW 16.6 H Neutrophils # 10.4 H Lymphocytes # 0.5 L PT 12.2 H INR 1.2 H BUN 56 H Creatinine 2.42 H Glucose 166 H POC Glucose (mg/dL) Plasma Lactic Acid Paco Calcium 8.2 L Alkaline Phosphatase 167 H Troponin I Total Protein 5.5 L Albumin 2.8 L 04/05/22 04/05/22 04/05/22 08:39 08:39 11:17 WBC RBC Hgb Hct RDW Neutrophils # Lymphocytes # PT INR BUN Creatinine Glucose POC Glucose (mg/dL) Plasma Lactic Acid Paco 2.3 H* Calcium Alkaline Phosphatase Troponin I 0.108 H* 0.140 H* Total Protein Albumin 04/05/22 04/05/22 04/06/22 14:39 20:43 05:41 WBC RBC Hgb Hct RDW Neutrophils # Lymphocytes # PT INR BUN Creatinine Glucose POC Glucose (mg/dL) 146 H 139 H Plasma Lactic Acid Paco Calcium Alkaline Phosphatase Troponin I 0.154 H* Total Protein Albumin - Diagnostic Findings Chest x-ray: image reviewed Assessment and Plan Assessment: Acute hypoxemic respiratory failure secondary to CHF. History of chronic atrial fibrillation. History of CAD, previous bypass grafting. History of aortic stenosis. History of COPD. History of CVA. History of diabetes mellitus. History of hypertension. History of hyperlipidemia. A history of myocardial infarction. History of gastroesophageal reflux disease. Plan: Plan dated 04/06/2022. We will have respiratory set the patient up on BiPAP, with settings of 12/5, and 100%. In addition, the patient's currently on albuterol sulfate and ipratropium bromide, 4 times a day and when necessary. We will continue to follow make recommendations were appropriate. Patient's overall prognosis is guarded. Hopefully, the BiPAP will prevent an escalation in the patient's symptoms, and possible transfer to the intensive care unit. Labs, x-rays, and medications are reviewed. Prognosis is guarded. Time with Patient: Greater than 30
[2022-04-06] MEDS: METOPROLOL TARTRATE 25 MG TAB PO SCH ×2 (14:26→21:10)
[2022-04-06] MEDS: AMIODARONE 200 MG TAB PO SCH (14:27)
[2022-04-06 16:26] LABS: Glucose,Whole Blood 98 mg/dL (70-110)
[2022-04-06 20:28] LABS: Glucose,Whole Blood 81 mg/dL (70-110)
--- NOTE | 2022-04-06 20:57 | CONS ---
CONSULTATION Jovanni Dasilva is a 71-year-old gentleman with a history of paroxysmal atrial fibrillation, hypertension, hyperlipidemia, type 2 diabetes, and also pulmonary fibrosis and past history of smoking and COPD. He came into the hospital mainly with increasing shortness of breath with low oxygen saturations. He has been placed on BiPAP after being seen by Dr. Gerardo and clinically he is doing better. He also received some steroids. He had relative hypotension that has improved. Blood pressure today is 97/60. He is in atrial fibrillation with a moderate ventricular rate. The patient has a question of pulmonary fibrosis and is on amiodarone. I am suggesting that we will stop amiodarone in this setting. His BNP is also mildly elevated. His troponin is elevated, but I do not believe this is significant and may represent hypoxia-related myocardial injury like a type 2 [place]. He is feeling a little better since he started on BiPAP and his breathing is easier. PAST MEDICAL HISTORY: Atrial fibrillation, ischemic heart disease, hypertension, hyperlipidemia, diabetes and pulmonary fibrosis. He also had recent coronavirus infection. PHYSICAL EXAMINATION: On examination, blood pressure is 97/50, pulse rate is about 110, irregular. HEENT unremarkable. Fundus was not examined by me. Neck is supple. There is JVD of 1 cm. No carotid bruit. Heart exam reveals S1, S2 with rhythm, short systolic murmur. Lungs reveal diminished air entry with fine bibasilar rales. Abdomen is soft, nontender. Lower extremities reveal diminished pulses. Central nervous system is grossly within normal limits. IMPRESSION: 1. Exacerbation of congestive heart failure, combination of both systolic and diastolic. 2. Persistent atrial fibrillation. 3. Probable pulmonary fibrosis. 4. Chronic obstructive pulmonary disease. RECOMMENDATIONS: I am recommending that we will place him on Lasix 20 mg q.8 hours. I will also hold amiodarone and continue his breathing treatments. Overall prognosis remains guarded. His atrial fibrillation rate seems to be better controlled. He is already on anticoagulation with Eliquis 5 mg b.i.d., which we will continue. Prognosis is guarded. Thank you very much for the consult. MMODL / IJN: [id number] /
[2022-04-06] MEDS: QUEtiapine 50 MG TAB PO SCH (21:10)
[2022-04-07 03:55] LABS: Glucose,Whole Blood 99 mg/dL (70-110)
[2022-04-07 05:58] LABS: Glucose,Whole Blood 133 mg/dL (70-110)
[2022-04-07] MEDS: PANTOPRAZOLE 40 MG TABLET PO SCH (06:28)
[2022-04-07] MEDS: MIDODRINE 5 MG TAB PO SCH ×2 (06:28→12:26)
[2022-04-07] MEDS: IPRATROPIUM-ALBUTEROL 3 ML NEB INHALATION PRN ×2 (07:37→11:11)
[2022-04-07] MEDS: ESCITALOPRAM 20 MG TAB PO SCH (09:27)
[2022-04-07] MEDS: ATORVASTATIN 40 MG TAB PO SCH (09:27)
[2022-04-07] MEDS: METOPROLOL TARTRATE 25 MG TAB PO SCH (09:27)
[2022-04-07] MEDS: AMIODARONE 200 MG TAB PO SCH (09:28)
[2022-04-07] MEDS: APIXABAN 5 MG TAB PO SCH (09:28)
[2022-04-07] MEDS: POTASSIUM CHLORIDE ER 20 MEQ TAB.ER PO SCH (09:28)
[2022-04-07] MEDS: LINAGLIPTIN 5 MG TABLET PO SCH (09:28)
[2022-04-07] MEDS: HYDROCORTISONE 10 MG TAB PO SCH (09:28)
[2022-04-07 09:59] LABS: Anisocytosis Slight; HCT 31.3 % (39.0-53.0); Hypochromasia Moderate; MCH 29.9 pg (25.0-35.0); MCHC 31.8 g/dL (31.0-37.0); MCV 93.9 fL (80.0-100.0); Mean Platelet Volume 8.1; Platelet Count 137 k/uL (150-450); RBC 3.33 m/uL (4.30-5.90); RDW 16.2 % (11.5-15.5); WBC 10.9 k/uL (3.8-10.6)
[2022-04-07 10:00] LABS: HGB 9.9 gm/dL (13.0-17.5)
[2022-04-07 10:48] LABS: Calcium 8.1 mg/dL (8.4-10.2); Potassium 4.5 mmol/L (3.5-5.1)
[2022-04-07 10:49] VITALS: TEMP 97.3
--- NOTE | 2022-04-07 11:21 | P.PN ---
Subjective Progress Note Date: 04/07/22 Principal diagnosis: Respiratory failure. Pulmonary consult dated 04/06/2022. 71-year-old male, who looks much older than his stated age, was brought into the emergency department on April 05, by EMS, for respiratory distress. Apparently he was found by the medics, to have saturations in the high 50s. Apparently EMS was called because of respiratory distress. The patient does use oxygen at home. She does have a history of COPD, CAD, and atrial fibrillation. The patient was recently admitted to the hospital for similar episode. Currently, the patient is on 10 L high flow oxygen. Saturations are 94%. The patient not receiving any IV fluids. The patient also could use BiPAP at 12/5 and 100%. We will have respiratory set him up on these settings. Currently labs, white count of 12, hemoglobin 11.4, hematocrit 35.5, and a platelet count of 252,000. PT is 12.2 with an INR 1.2. Venous blood gases show pCO2 of 40 and a pH is 7.41. Sodium 137, potassium 5.1, chlorides 102, CO2 24, with a BUN and creatinine are 56 and 2.42 respectively. Troponin was 0.154. N-terminal proBNP was 8780. Chest x-ray was consistent with CHF. Progress note dated 04/07/2022. 71-year-old male seen yesterday in consultation. He is again seen in room 374. Currently, the patient is on a nonrebreather mask. In addition, the patient is using BiPAP, when he is not using the nonrebreather mask. His overall situation is declining even from yesterday. I was able to have a long conversation with the nurse, as well as a daughter, Tammy. We talked about whether or not the p atient would want intubation, and mechanical ventilation. She was going to talk to other family members before making a decision. I do see, that they made the patient a DO NOT RESUSCITATE patient. This is also something that is new. White count 10.9, hemoglobin 9.9, hematocrit 31.3, platelet count 237,000. Sodium 133, potassium 4.5, chlorides 102, CO2 25, BUN 63, and creatinine 2.38. Calcium is 8.1. Objective - Vital Signs Vital signs: Vital Signs Temp 97.3 F L 04/07/22 08:00 Pulse 109 H 04/07/22 08:00 Resp 30 H 04/07/22 08:00 BP 98/58 04/07/22 08:00 Pulse Ox 86 L 04/07/22 08:00 FiO2 50 04/07/22 07:38 Intake & Output 04/06/22 04/07/22 04/07/22 18:59 06:59 18:59 Intake Total 240 0 Output Total 100 150 Balance 140 -150 0 Weight 81.5 kg Intake: Oral 240 0 Output: Urine 100 150 Other: Voiding Method Urinal Urinal # Voids 275 1 # Bowel Movements 1 1 - Exam Worsening respiratory distress, increasing respiratory rate. The patient is currently on a nonrebreather there is conversational dyspnea. HEENT examination is grossly unremarkable. Neck supple. Full range of motion. No adenopathy thyromegaly or neck vein distention. Cardiovascular examination reveals regular rhythm rate. S1-S2 normal. No S3 or S4. No discernible murmur noted. Heart rate 112 bpm. Heart sounds are distant. Lungs reveal bibasilar crackles. Diffuse rhonchi appreciated on inspiration and expiration. No wheezes. Breath sounds equal bilaterally. Saturations are 86% on the nonrebreather mask. Abdomen soft bowel sounds are heard. No masses or tenderness. Extremities are intact. No cyanosis clubbing or edema. Skin reveals multiple areas of ecchymoses. Neurologic examination is brief but nonfocal. - Labs CBC & Chem 7: 04/07/22 08:36 04/07/22 08:36 Labs: Abnormal Lab Results - Last 24 Hours (Table) 04/06/22 04/07/22 04/07/22 Range/Units 11:39 05:33 08:36 WBC 10.9 H (3.8-10.6) k/uL RBC 3.33 L (4.30-5.90) m/uL Hgb 9.9 L D (13.0-17.5) gm/dL Hct 31.3 L (39.0-53.0) % RDW 16.2 H (11.5-15.5) % Plt Count 137 L (150-450) k/uL Sodium (137-145) mmol/L BUN (9-20) mg/dL Creatinine (0.66-1.25) mg/dL Glucose (74-99) mg/dL POC Glucose (mg/dL) 124 H 133 H (70-110) mg/dL Calcium (8.4-10.2) mg/dL 04/07/22 Range/Units 08:36 WBC (3.8-10.6) k/uL RBC (4.30-5.90) m/uL Hgb (13.0-17.5) gm/dL Hct (39.0-53.0) % RDW (11.5-15.5) % Plt Count (150-450) k/uL Sodium 133 L (137-145) mmol/L BUN 63 H (9-20) mg/dL Creatinine 2.38 H (0.66-1.25) mg/dL Glucose 122 H (74-99) mg/dL POC Glucose (mg/dL) (70-110) mg/dL Calcium 8.1 L (8.4-10.2) mg/dL Assessment and Plan Assessment: Acute hypoxemic respiratory failure secondary to CHF. History of chronic atrial fibrillation. History of CAD, previous bypass grafting. History of aortic stenosis. History of COPD. History of CVA. History of diabetes mellitus. History of hypertension. History of hyperlipidemia. A history of myocardial infarction. History of gastroesophageal reflux disease. Plan: Plan dated 04/06/2022. We will have respiratory set the patient up on BiPAP, with settings of 12/5, and 100%. In addition, the patient's currently on albuterol sulfate and ipratropium bromide, 4 times a day and when necessary. We will continue to follow make recommendations were appropriate. Patient's overall prognosis is guarded. Hopefully, the BiPAP will prevent an escalation in the patient's symptoms, and possible transfer to the intensive care unit. Labs, x-rays, and medications are reviewed. Prognosis is guarded. Plan dated 04/07/2022. Today the conversation with the nurse, and also the patient's daughter, and we talked about a number things including end-of-life issues, and whether or not t he patient would want life support. She will discuss this with the rest of the family and get back with us. For the time being, the patient was made a DO NOT RESUSCITATE patient. I think that's very appropriate. The patient's overall situation has worsened. His respiratory status has declined. He is on either nonrebreather mass, or BiPAP. I think he would do very poorly with mechanical ventilation. Additional recommendations and suggestions are forthcoming. Prognosis is certainly guarded. Time with Patient: Less than 30
[2022-04-07 11:59] LABS: Glucose,Whole Blood 118 mg/dL (70-110)
[2022-04-07] MEDS: ACETAMINOPHEN TAB 325 MG TAB PO PRN (12:25)
--- NOTE | 2022-04-07 12:47 | P.PN ---
Subjective Progress Note Date: 04/07/22 HISTORY OF PRESENT ILLNESS 71-year-old male one of Dr. Saleh patient with multiple medical problemwas known to have history of COPD, advance on home O2 will use BiPAP at nighttime every night, history of coronary artery disease post three-vessel CABG, history of coronary stenting, history of type 2 diabetes, history of hyperlipidemia, history of stroke, history of ST elevated myocardial infarction, history of TIA, carotid stenosis, chronic lower back pain,history of pneumothorax that required transferred [facility] where he had VATS procedure done in Aug. who was in the hospital recently between 03/12 till 03/30/2022for CHF with a flutter and A. fib, was O2 dependent for many days his oxygenation does not stabilize until almost the day of his discharge was require anywhere between 60 percentile O2 on Ventimask to 6-8 L of oxygen. The last 2 days of his hospitalization his oxygen sat improve on 4 L O2 which patient ended up being discharged on O2 during the daytime and BiPAP at nighttime. Apparently patient found to be in quite respiratory distress according to the walk-in to find him without his oxygen in extreme respiratory distress ended up calling 911 patient found to have pulse ox of 50 percentile only was placed on 100 percentile oxygen was quite but confused ended up coming to the emergency department where was seen and evaluated after having him on BiPAP and higher oxygen flow he improved slight bit was kept on BiPAP for the time. Testing this time including chest x-ray continued to show sign and symptom of congestive heart failure with slight scar tissue and mild fibrosis compatible with with he had 2 weeks ago the hospital. EKG showed patient is an sinus rhythm with multiple PVCs no sign of A. fib and it at the time. Laboratory value shows moderately elevated white blood cell with left shift his creatinine is much worse than last time up to 2.4 to with GFR dropped down to 26 his troponin was elevated at 0.108 with BNP of 8780 COVID-19 and influenza were negative.patient was kept on BiPAP and admitted to the floor with the above problem. 04/06: Patient is seen today on the cardiac stepdown unit. He is currently on high flow nasal cannula at 15 L with pulse ox 96%, blood pressure 79/49, heart rate 106, afebrile. Patient states he did not use BiPAP during the night. R epeat troponin 0.140 and 0.154. Cardiology is on consult as well as pulmonary medicine. We have asked nursing to hold amiodarone, metoprolol until seen by cardiology. A repeat dose of Lasix 40 mg IV 1 ordered. 04/07: patient states that he is not feeling very well. high flow nasal cannula with pulse ox of 86%. His been afebrile, heart rate 109, respiratory rate 30. Discussed with patient's his current condition and prognosis and suggested that he would be appropriate for hospice care. Patient's came in later in the morning and they've decided on a DO NOT RESUSCITATE order.repeat blood work reveals WBC 10.9, hemoglobin 9.9, platelets of 137.sodium 133, BUN 63 and creatinine 2.38. REVIEW OF SYSTEMS Constitutional: No fever, no chills, no night sweats. No weight change. Reports chronic weakness, no fatigue no lethargy. No daytime sleepiness. EENT: No headache. No blurred vision or double vision, no loss of vision. No loss of Hearing, no ringing in the ears, no dizziness. No nasal drainage or congestion. No epistaxis. No sore throat. Lungs: Reports shortness of breathcontinued, cough, no sputum production. No wheezing. Cardiovascular: No chest pain, no lower extremity edema. No palpitations. No paroxysmal nocturnal dyspnea. No orthopnea. No lightheadedness or dizziness. No syncopal episodes. Abdominal: No abdominal pain. No nausea, vomiting. No diarrhea. No constipation. No bloody or tarry stools. No loss of appetite. Genitourinary: No dysuria, increased frequency, urgency. No urinary retention. Musculoskeletal: No myalgias. Reports muscle weakness, reports chronic gait dysfunction, no frequent falls. No back pain. No neck pain. Integumentary: No wounds, no lesions. No rash or pruritus. No unusual bruising. No change in hair or nails. Neurologic: No aphasia. No facial droop. No change in mentation. No head injury. No headache. No paralysis. No paresthesia. Psychiatric: No depression. No anxiety. No mood swings. Endocrine: No abnormal blood sugars. No weight change. No excessive sweating or thirst. No cold intolerance. PHYSICAL EXAMINATION Gen: This is a 70-year-old male. He is resting in bed and appears to be comfortable. HEENT: Head is atraumatic, normocephalic. Pupils equal, round. Sclerae is anicteric. Dentition is in very poor order. Multiple caries. NECK: Supple. No JVD. No lymphadenopathy. No thyromegaly. LUNGS: Clear to auscultation. No wheezes or rhonchi. No intercostal retractions. HEART: Regular rate and rhythm. No murmur. Tachycardia. ABDOMEN: Soft. Bowel sounds are present. No masses. No tenderness. EXTREMITIES: No pedal edema. No calf tenderness. Dorsalis pedis +2 bilaterally. NEUROLOGICAL: Patient is awake, alert and oriented x3. Cranial nerves 2 through 12 are grossly intact. ASSESSMENT AND PLAN - acute on chronic respiratory failure: Secondary to severe hypoxia with lack of oxygen and being off BiPAP. Consult with pulmonary medicine and cardiology. Continue BiPAP try to keep patient on his 4 L of oxygen by tomorrow morning. - elevated troponin with possible non-ST MN, patient to be seen cardiology. - Acute kidney injury: Kidney function is much worse most likely from acute tubular necrosis, we watch patient symptom with gentle hydration repeat CMP in the morning. - pulmonary fibrosis: From last admission patient has been watched by pulmonary we'll continue current management for now continue oxygen along with updraft treatment smaller dose of steroid. - Adrenal insufficiency: Has been on Cortef 5 mg twice a day blood pressure is holding well on midodrine as well. - Chronic persistent atrial fibrillation with previous cardioversion 2. Continue amiodarone, eliquis, Cardizem, digoxin, Toprol-XL. - type 2 diabetes: Resume Januvia, along with Accu-Chek with sliding scales coverage. - Hypertension. Continue Toprol-XL, amiodarone, Lasix. - Hyperlipidemia. Continue atorvastatin 80 mg at bedtime - History of stroke. Continue atorvastatin and eliquis for secondary p revention. - Peripheral vascular disease with history of carotid stenosis. Continue atorvastatin and eliquis for secondary prevention. - Anemia of chronic kidney disease. - Generalized debility following recent hospitalization at [facility] for acute kidney injury, Covid 19 with acute on chronic respiratory failure. - Chronic back pain. Continue Flexeril 10 mg at bedtime. - DVT prophylaxis: Patient be continue on anticoagulation. - GI prophylaxis: Patient will be continue on pantoprazole. CODE STATUS: NO code. Prognosis guarded DISCHARGE PLAN Subacute rehab or hospice once stabilized. Impression and plan of care have been directed as dictated by the signing physician. Luci Farrar nurse practitioner acting as scribe for signing physician. Objective - Vital Signs Vital signs: Vital Signs Temp 100.4 F H 04/07/22 04:00 Pulse 112 H 04/07/22 07:56 Resp 33 H 04/07/22 04:00 BP 101/62 04/07/22 04:00 Pulse Ox 94 L 04/07/22 04:00 FiO2 50 04/07/22 07:38 Intake & Output 04/06/22 04/07/22 04/07/22 18:59 06:59 18:59 Intake Total 240 Output Total 100 150 Balance 140 -150 Weight 81.5 kg Intake: Oral 240 Output: Urine 100 150 Other: Voiding Method Urinal Urinal # Voids 275 1 # Bowel Movements 1 1 - Labs CBC & Chem 7: 04/07/22 08:36 04/07/22 08:36 Labs: Abnormal Lab Results - Last 24 Hours (Table) 04/06/22 04/07/22 Range/Units 11:39 05:33 POC Glucose (mg/dL) 124 H 133 H (70-110) mg/dL
[2022-04-07 12:49] VITALS: BP 76/49; PULSE 101; RESP 32
--- NOTE | 2022-04-07 13:45 | P.DS ---
Providers Date of admission: 04/05/22 10:04 Expected date of discharge: 04/07/22 Attending physician: Jovanni Blandon Consults: 04/05/22 10:02 Consult Physician Routine Consulting Provider: Angel Mcfarland Consult Reason/Comments: CHF Do you want consulting provider notified?: Yes 04/05/22 19:11 Consult Physician Routine Consulting Provider: Remy Gerardo Consult Reason/Comments: COPD, Resp Failure Do you want consulting provider notified?: Yes Primary care physician: Randy Saleh [facility] Course: HISTORY OF PRESENT ILLNESS 71-year-old male one of Dr. aSleh patient with multiple medical problemwas known to have history of COPD, advance on home O2 will use BiPAP at nighttime every night, history of coronary artery disease post three-vessel CABG, history of coronary stenting, history of type 2 diabetes, history of hyperlipidemia, history of stroke, history of ST elevated myocardial infarction, history of TIA, carotid stenosis, chronic lower back pain,history of pneumothorax that required transferred [facility] where he had VATS procedure done in August 2021. who was in the hospital recently between 03/12 till 03/30/2022for CHF with a flutter and A. fib, was O2 dependent for many days his oxygenation does not stabilize until almost the day of his discharge was require anywhere between 60 percentile O2 on Ventimask to 6-8 L of oxygen. The last 2 days of his hospitalization his oxygen sat improve on 4 L O2 which patient ended up being discharged on O2 during the daytime and BiPAP at nighttime. Apparently patient found to be in quite respiratory distress according to the walk-in to find him without his oxygen in extreme respiratory distress ended up calling 911 patient found to have pulse ox of 50 percentile only was placed on 100 percentile oxygen was quite but confused ended up coming to the emergency department where was seen and evaluated after having him on BiPAP and higher oxygen flow he improved slight bit was kept on BiPAP for the time. Testing this time including chest x-ray continued to show sign and symptom of congestive heart failure with slight scar tissue and mild fibrosis compatible with with he had 2 weeks ago the hospital. EKG showed patient is an sinus rhythm with multiple PVCs no sign of A. fib and it at the time. Laboratory value shows moderately elevated white blood cell with left shift his creatinine is much worse than last time up to 2.4 to with GFR dropped down to 26 his troponin was elevated at 0.108 with BNP of 8780 COVID-19 and influenza were negative.patient was kept on BiPAP and admitted to the floor with the above problem. 04/06: Patient is seen today on the cardiac stepdown unit. He is currently on high flow nasal cannula at 15 L with pulse ox 96%, blood pressure 79/49, heart rate 106, afebrile. Patient states he did not use BiPAP during the night. Repeat troponin 0.140 and 0.154. Cardiology is on consult as well as pulmonary medicine. We have asked nursing to hold amiodarone, metoprolol until seen by cardiology. A repeat dose of Lasix 40 mg IV 1 ordered. 04/07: patient states that he is not feeling very well. high flow nasal cannula with pulse ox of 86%. His been afebrile, heart rate 109, respiratory rate 30. Discussed with patient's his current condition and prognosis and suggested that he would be appropriate for hospice care. Patient and family came in later in the morning and they've decided on a DO NOT RESUSCITATE order.repeat blood work reveals WBC 10.9, hemoglobin 9.9, platelets of 137.sodium 133, BUN 63 and creatinine 2.38. Later in the afternoon, patient decided to go home with hospice. DISCHARGE DIAGNOSES - acute on chronic respiratory failure: Secondary to severe hypoxia with lack of oxygen and being off BiPAP. - elevated troponin with possible non-ST NC - Acute kidney injury - pulmonary fibrosis - Adrenal insufficiency - Chronic persistent atrial fibrillation with previous cardioversion 2. - type 2 diabetes - Hypertension. - Hyperlipidemia. - History of stroke. - Peripheral vascular disease with history of carotid stenosis. - Anemia of chronic kidney disease. - Generalized debility following recent hospitalization at [facility] for acute kidney injury, Covid 19 with acute on chronic respiratory failure. - Chronic back pain. DISCHARGE PLAN Home with hospice Greater than 35 minutes was utilized and coordinating patient's discharge. Impression and plan of care have been directed as dictated by the signing physician. Luci Farrar nurse practitioner acting as scribe for signing physician. Patient Condition at Discharge: Stable Plan - Discharge Summary Discharge Rx Participant: No New Discharge Prescriptions: Continue Escitalopram [Lexapro] 20 mg PO DAILY Amiodarone [Cordarone] 200 mg PO DAILY sitaGLIPtin PHOSPHATE [Januvia] 100 mg PO DAILY Ipratropium-Albuterol Nebulize [Duoneb 0.5 mg-3 mg/3 ml Soln] 3 ml INHALATION RT-QID PRN #120 each PRN Reason: Shortness Of Breath Or Wheezing Potassium Chloride ER [K-Dur 20] 20 meq PO DAILY #30 tab Atorvastatin [Lipitor] 40 mg PO DAILY #30 tab Metoprolol Tartrate [Lopressor] 25 mg PO BID #60 tab Midodrine [ProAmatine] 5 mg PO AC-TID 30 Days #90 tab Apixaban [Eliquis] 5 mg PO BID Cholecalciferol [Vitamin D3 (125 Mcg = 5000 Iu)] 125 mcg PO DAILY Ascorbic Acid [Vitamin C] 1,000 mg PO DAILY QUEtiapine [SEROquel] 50 mg PO HS Zinc 50 mg PO DAILY Pantoprazole [Protonix] 40 mg PO AC-BRKFST #30 tab Acetaminophen Tab [Tylenol] 650 mg PO Q6HR PRN tab PRN Reason: Mild Pain Or Fever > 100.5 Hydrocortisone [Cortef] 5 mg PO BID Furosemide [Lasix] 40 mg PO BID@0900,1600 #60 tab Discontinued metroNIDAZOLE [Flagyl] 500 mg PO BID Discharge Medication List Amiodarone [Cordarone] 200 mg PO DAILY 11/02/21 [History] Apixaban [Eliquis] 5 mg PO BID 11/02/21 [History] Escitalopram [Lexapro] 20 mg PO DAILY 11/02/21 [History] Ascorbic Acid [Vitamin C] 1,000 mg PO DAILY 03/02/22 [History] Cholecalciferol [Vitamin D3 (125 Mcg = 5000 Iu)] 125 mcg PO DAILY 03/02/22 [History] QUEtiapine [SEROquel] 50 mg PO HS 03/02/22 [History] Zinc 50 mg PO DAILY 03/02/22 [History] sitaGLIPtin PHOSPHATE [Januvia] 100 mg PO DAILY 03/02/22 [History] Acetaminophen Tab [Tylenol] 650 mg PO Q6HR PRN tab 03/08/22 [Rx] Pantoprazole [Protonix] 40 mg PO AC-BRKFST #30 tab 03/08/22 [Rx] Hydrocortisone [Cortef] 5 mg PO BID 03/12/22 [History] Atorvastatin [Lipitor] 40 mg PO DAILY #30 tab 03/30/22 [Rx] Furosemide [Lasix] 40 mg PO BID@0900,1600 #60 tab 03/30/22 [Rx] Ipratropium-Albuterol Nebulize [Duoneb 0.5 mg-3 mg/3 ml Soln] 3 ml INHALATION RT-QID PRN #120 each 03/30/22 [Rx] Metoprolol Tartrate [Lopressor] 25 mg PO BID #60 tab 03/30/22 [Rx] Midodrine [ProAmatine] 5 mg PO AC-TID 30 Days #90 tab 03/30/22 [Rx] Potassium Chloride ER [K-Dur 20] 20 meq PO DAILY #30 tab 03/30/22 [Rx] Follow up Appointment(s)/Referral(s): [facility], [NON-STAFF] - Randy Saleh DO [Primary Care Provider] - As Needed
[2022-04-07] MEDS ORDERED: LORazepam 1 MG/0.5 ML VIAL IV ONE (15:29)
[2022-04-07] MEDS ORDERED: FUROSEMIDE 40 MG TAB PO SCH (16:00)
--- NOTE | 2022-04-07 18:19 | PN ---
PROGRESS NOTE Mr. Dasilva has some pulmonary fibrosis, decreased LV function, COPD with exacerbation. He is on a BiPAP and with the BiPAP he is breathing better. He has multiple comorbid issues and prognosis remains poor. Vitals are stable. JVD 1 cm. S1- S2 heard normally. Irregular rhythm noted. Short systolic murmur noted. Lungs reveal bilateral fairly decent air entry with a BiPAP machine. Abdomen and lower extremity exam unchanged. Prognosis remains guarded. No new suggestions. Will defer to Pulmonology for further management. MMODL / IJN: [id number] /
== END 2022-04-07 16:45 | disposition hospice, home (50) | DRG 189 ==
LOC: EC 08:25 → 3SCARD 10:04
PROVIDERS: ADMIT Internal Medicine Geriatric Medicine; ATTEND Internal Medicine Geriatric Medicine
PROC: 5A09457 Assistance with Respiratory Ventilation, 24-96 Consecutive Hours, Continuous Positive Airway Pressure (ICD-10-PCS; principal; 2022-04-06)
DX: J96.21 Acute and chronic respiratory failure with hypoxia (principal); N17.0 Acute kidney failure with tubular necrosis; I50.43 Acute on chronic combined systolic (congestive) and diastolic (congestive) heart failure; I21.A1 Myocardial infarction type 2; I13.0 Hypertensive heart and chronic kidney disease with heart failure and stage 1 through stage 4 chronic kidney disease, or unspecified chronic kidney disease; I48.19 Other persistent atrial fibrillation; E27.40 Unspecified adrenocortical insufficiency; J44.1 Chronic obstructive pulmonary disease with (acute) exacerbation; I48.92 Unspecified atrial flutter; I95.9 Hypotension, unspecified; D63.1 Anemia in chronic kidney disease; E11.51 Type 2 diabetes mellitus with diabetic peripheral angiopathy without gangrene; E11.40 Type 2 diabetes mellitus with diabetic neuropathy, unspecified; E11.22 Type 2 diabetes mellitus with diabetic chronic kidney disease; J84.10 Pulmonary fibrosis, unspecified; N18.30 Chronic kidney disease, stage 3 unspecified; Z20.822 Contact with and (suspected) exposure to COVID-19; Z66 Do not resuscitate; Z51.5 Encounter for palliative care; D72.829 Elevated white blood cell count, unspecified; G47.33 Obstructive sleep apnea (adult) (pediatric); I25.10 Atherosclerotic heart disease of native coronary artery without angina pectoris; I49.3 Ventricular premature depolarization; I65.29 Occlusion and stenosis of unspecified carotid artery; K21.9 Gastro-esophageal reflux disease without esophagitis; E78.5 Hyperlipidemia, unspecified; I35.0 Nonrheumatic aortic (valve) stenosis; G89.29 Other chronic pain; M54.50 Low back pain, unspecified; I25.2 Old myocardial infarction; Z79.01 Long term (current) use of anticoagulants; Z99.81 Dependence on supplemental oxygen; Z79.84 Long term (current) use of oral hypoglycemic drugs; Z79.52 Long term (current) use of systemic steroids; Z79.899 Other long term (current) drug therapy; Z87.891 Personal history of nicotine dependence; Z86.73 Personal history of transient ischemic attack (TIA), and cerebral infarction without residual deficits; Z95.1 Presence of aortocoronary bypass graft; Z95.5 Presence of coronary angioplasty implant and graft; Z86.16 Personal history of COVID-19; Z86.19 Personal history of other infectious and parasitic diseases; Z88.5 Allergy status to narcotic agent; Z82.5 Family history of asthma and other chronic lower respiratory diseases; Z80.6 Family history of leukemia
CPT/HCPCS: 36415; 71045; 80048; 80053; 82803; 83605; 83735; 83880; 84484; 85025; 85027; 85610; 85730; 87502; 87635; 93005; 94640; 94660; 94760; 96374; 99291